=== PATIENT | female | born 1965 | race Caucasian/White ===

== ENCOUNTER → 2017-06-06 13:23 | Outpatient (CLI) | payer MEDICAID, SELFPAY ==
--- NOTE | 2017-06-11 09:04 | LEAS_ITS ---
Arterial Study - Arterial Study Arterial Study: This is a 51-year-old female with a history of hypertension, chronic obstructive pulmonary disease, deep vein thrombosis, pulmonary embolism, obstructive sleep apnea, rheumatoid arthritis, obesity, and tobacco abuse. The patient presents with lower extremity pain, and symptoms and manifestations suggesting the presence of arterial occlusive disease. She is brought to the noninvasive vascular laboratory at this time for the purpose of bilateral noninvasive lower extremity arterial assessment. Doppler signal assessment was used to evaluate the pulses at ankle level bilaterally. The posterior tibial and dorsalis pedis pulses were triphasic bilaterally. Segmental limb pressures were obtained at ankle level bilaterally. The right ankle pressure, as determined by posterior tibial pulse, was measured at 156 mmHg. The right ankle pressure, as determined by dorsalis pedis pulse, was measured at 154 mmHg. The left ankle pressure, as determined by posterior tibial pulse, was measured at 153 mmHg. The left ankle pressure, as determined by dorsalis pedis pulse, was measured at 159 mmHg. Pulse-volume recordings were obtained at ankle level bilaterally. Waveform amplitudes appeared to be satisfactory bilaterally. Resting ankle-brachial indices were calculated bilaterally. The resting right ankle-brachial index was calculated to be 1.01. The resting left ankle- brachial index was calculated to be 1.03. Impression: Based upon the findings of this resting noninvasive lower extremity arterial study, there is no evidence of significant atherosclerotic peripheral arterial occlusive disease in the lower extremities bilaterally. Triphasic waveforms were noted at ankle level bilaterally. Resting ankle-brachial indices were bilaterally normal. In summary, this represents a normal resting noninvasive lower extremity arterial study bilaterally.
== END ==
PROVIDERS: Family Provider Family Medicine; PCP Family Medicine; Visit Provider Nurse Practitioner Acute Care
DX: R60.0 Localized edema (principal)
CPT/HCPCS: 93922

== ENCOUNTER → 2017-09-22 17:58 | Outpatient (CLI) | payer MEDICAID, SELFPAY ==
[2017-09-22 19:16] LABS: M R Staph aureus DNA By PCR Negative (Negative); Probe Check PASS; Specimen Processing Control PASS; Staph aureus DNA By PCR NEGATIVE (Negative)
== END ==
PROVIDERS: Visit Provider Podiatrist
DX: L97.919 Non-pressure chronic ulcer of unspecified part of right lower leg with unspecified severity (principal); L03.115 Cellulitis of right lower limb
CPT/HCPCS: 87070; 87205; 87640

== ENCOUNTER → 2017-09-27 18:22 | Outpatient (CLI) | payer MEDICAID, SELFPAY | PROVIDERS: Visit Provider Podiatrist | DX: L97.919 Non-pressure chronic ulcer of unspecified part of right lower leg with unspecified severity (principal) | CPT/HCPCS: 87070; 87075; 87186; 87205 ==

== ENCOUNTER 2017-12-12 18:16 | Inpatient (IN) | payer MEDICAID, SELFPAY ==
[2017-12-12 18:17] VITALS: BP 159/96; PULSE 86; RESP 22; TEMP 36.6; O2SAT 88; BMI 48.0
--- NOTE | 2017-12-12 19:54 | EKG12_ITS ---
Test Reason : Blood Pressure : / mmHG Vent. Rate : 082 BPM Atrial Rate : 082 BPM P-R Int : 150 ms QRS Dur : 080 ms QT Int : 374 ms P-R-T Axes : -11 050 081 degrees QTc Int : 436 ms Normal sinus rhythm Low voltage QRS Borderline ECG Confirmed by RAMSEY DEAN, JENNIFER ([id number]), deputy editor in chief FIFI URRUTIA ([id number] on 12/14/2017 1:49:35 PM Referred By: Trevor Claire Confirmed By:JENNIFER MUSTAFA MD
[2017-12-12 20:11] VITALS: PULSE 83; RESP 20; O2SAT 94
[2017-12-12 20:19] VITALS: PULSE 84; RESP 20
[2017-12-12 20:19] LABS: Red Blood Cells-Urine 0 SEEN /hpf (0-5)
[2017-12-12] MEDS: Ipratropium/Albuterol Sulfate 3 ML AMPUL.NEB INHALATION (20:19)
[2017-12-12 20:20] LABS: Color, Urine Yellow (Yellow); Glucose, Dipstick Normal (Normal); Ketone-Dipstick Negative (Negative); Leukocyte Esterase-Dipstick 500 /ul (Negative); Nitrite-Dipstick Negative (Negative); Occult Blood-Urine 10 /ul (Negative); Protein-Dipstick 15 mg/dl (Negative); Urine Bilirubin Dipstick Negative (Negative); Urine Clarity Clear (Clear); Urine Urobilinogen 1 mg/dl (Normal)
[2017-12-12] MEDS: 0.9% Normal Saline 1,000 ML 999 ML IV (20:30)
[2017-12-12] MEDS: Ondansetron 4 MG/2 ML Vial IV (20:30)
[2017-12-12] MEDS: MethylPREDNISolone 125 MG/2 ML Vial IV (20:30)
[2017-12-12] MEDS: Morphine 4 MG/ML Syringe IV (20:30)
--- NOTE | 2017-12-12 20:40 | RAD_ITS ---
STUDY: X-RAY CHEST REASON FOR EXAM: Female, 52 years old. Shortness of breath TECHNIQUE: Frontal and lateral views COMPARISON: December 31, 2015 FINDINGS: The lungs are expanded. Possible right middle lobe infiltrate. Cardiomegaly. Normal mediastinum and mony. Normal visualized pulmonary arteries. Normal visualized aortic arch and descending thoracic aorta. Degenerative changes of the visualized thoracic spine. Normal visualized ribs, clavicles, and shoulders. There is no demonstrated abnormality of the visualized soft tissue structures of the upper abdomen. RAD/Chest PA and Lateral IMPRESSION: Possible mild right middle lobe infiltrate. Slight cardiomegaly. Electronically Signed: Tang Loo DO at 21:35 EDT Tel [phone], Service support ,
[2017-12-12 20:42] LABS: Squamous Epithelial Cells - UA 0-5 SEEN /hpf (5-10)
[2017-12-12 20:43] LABS: Hyaline Cast 0-5 SEEN /lpf (0-5)
[2017-12-12 20:46] VITALS: O2SAT 94
[2017-12-12 20:46] LABS: Bacteria 1+ /hpf (None Seen)
[2017-12-12 20:47] LABS: Mucous, Urine RARE /hpf (<or=2+)
[2017-12-12 20:49] LABS: White Blood Cells 10-25 SEEN /hpf (0-5)
[2017-12-12 20:55] LABS: Absolute Lymphocyte Count 4.46 X10^3/ul (0.83-4.51); Absolute Neutrophil Count 7.8 X10^3/uL (2.0-7.7); Basophil# 0.02 X10^3/uL; Basophil% 0.1 % (0-1); Eosinophil# 0.21 X10^3/uL; Eosinophils% 1.6 % (0-5); Hematocrit 44.4 % (37-47); Hemoglobin 14.2 g/dl (12.0-15.0); Lymphocyte # 4.46 X10^3/ul (4.0); Lymphocyte % 33.2 % (19-41); Mean Corpuscular Hgb 27.9 pg (27.0-32.0); Mean Corpuscular Volume 87.2 fL (81-99); Mean Platelet Vol. 9.8 fl (6.2-12.0); Monocyte# 0.96 X10^3/uL; Monocyte% 7.1 % (0-10); Neutrophil # 7.76 X10^3/uL (2.7-7.7); Neutrophil % 57.9 % (47-70); Platelet Count 325 K/mm3 (150-450); RBC Distribution Width CV 14.1 % (11.6-14.6); RBC Distribution Width SD 44.7 fl (35.1-43.9); Red Blood Count 5.09 M/mm3 (4.2-5.4); White Blood Count 13.4 K/mm3 (4.4-11.0)
[2017-12-12 20:56] LABS: POSITIVE COUNT NO; POSITIVE DIFFERENTIAL NO; POSITIVE MORPHOLOGY NO
[2017-12-12 21:00] VITALS: PULSE 79; RESP 16; O2SAT 94
[2017-12-12 21:05] LABS: Anion Gap 10 (5-15); BUN 13 mg/dL (7-18); BUN/Creat Ratio 17.5 RATIO (10-20); Calcium,Total 9.4 mg/dL (8.5-10.1); Chloride 98 mmol/L (98-107); Creatinine, Serum 0.74 mg/dL (0.55-1.02); EST Glomerular Filtration Rate 88 mL/min (>60); Est Glom Filt Rate - Afr Amer 106 mL/min (>60); Estimated Creatinine Clearance 71.13 ml/min; Glucose 121 mg/dL (74-106); Potassium 3.6 mmol/L (3.5-5.1); Sodium Level 141 mmol/L (136-145)
--- NOTE | 2017-12-12 21:18 | ED.DCSUM_ITS ---
- ER Visit Summary Date of Service: 12/12/17 Chief Complaint: Cough and shortness of breath History of Present Illness: The patient is a [address] Lawler and Dr. Mensah. She reports that she has a cough began 2 weeks ago. Is productive of yellow/green mucus without blood. She reports that she had had a fever and chills. However, this resolved when she took Levaquin. She finished that 2 days ago. She is currently on a steroid taper. Patient reports that she has chest pain with coughing only. She has mild shortness of breath at rest and severe shortness of breath with ambulation. She denies any abdominal pain. However, she has been nauseated. No vomiting or diarrhea. No melena hematochezia. She reports that she does have dysuria and frequency. Physical Examination: Vitals: 97.8, 159/96, 86, 22, 88% on room air which is hypoxic. General: Well-nourished and well-developed. Head: Normocephalic atraumatic. Neck: Supple, no lymphadenopathy. No JVD. Nontender. Cardiovascular: Regular rate and rhythm. No murmurs. Respiratory: No respiratory distress. Moderate wheezing bilaterally with decreased air movement. Abdominal: Soft, nontender, nondistended, normal bowel sounds. No guarding, rebound, or peritoneal signs. Back: Nontender. Extremities: Nontender, no edema. Skin: Normal color, no rash. Neurologic: Alert and oriented ?3. Cranial nerves II through XII are intact. Normal strength and sensation. Psych: Normal affect. Test Results: EKG is sinus at [address] changes. Is essentially unchanged from February 2017. Chem-7 is remarkable for a CO2 of 33 and glucose 121. CBC is remarkable for a white count of 13.4. UA shows blood, 10-25 white blood cells, 1+ bacteria. Lactic acid is 1.6. Chest x-ray shows a possible right middle lobe pneumonia. Emergency Department Course and Treatment: Patient was treated albuterol Atrovent aerosols. She is given Solu-Medrol and morphine IV. She is resting comfortably. She was given Rocephin and Zithromax IV. She had been on Levaquin until 2 days ago. Treatment Plan: Patient will be discussed Dr. Trevor Henderson and admitted for further evaluation and treatment. Disposition: Admitted in improved condition Impression: 1. Pneumonia, community-acquired. 2. COPD. 3. Hypoxia. 4. UTI. This note was generated with [employer] dictation software. It may contain incorrect words, spelling, and punctuation that were not noted in review of the chart prior to signing ED Disposition - Plan for ED Patient: Chief Complaint: Shortness of Breath Referrals: Camilo Sloan DO [Primary Care Provider] -
[2017-12-12 21:42] LABS: Lactic Acid 1.6 mmol/L (0.4-2.0)
[2017-12-12] MEDS: Ceftriaxone 1 GM/50 ML BAG IV (22:23)
[2017-12-12 22:58] VITALS: BMI 48.2
[2017-12-12 23:01] VITALS: BP 152/83; PULSE 82; RESP 24; TEMP 36.8; O2SAT 95
--- NOTE | 2017-12-12 23:10 | PCM.HP.STD ---
Problem List (1) CAP (community acquired pneumonia) Status: Acute Qualifiers: Laterality: right Lung location: middle lobe of lung Qualified Code(s): J18.1 - Lobar pneumonia, unspecified organism (2) UTI (urinary tract infection) Status: Acute Qualifiers: Urinary tract infection type: acute cystitis (3) Fibromyalgia Status: Chronic (4) Morbid (severe) obesity due to excess calories Status: Chronic (5) Nicotine dependence, uncomplicated Status: Chronic (6) Patient's noncompliance with other medical treatment and regimen Status: Chronic (7) Obstructive sleep apnea Status: Chronic (8) Anxiety disorder Status: Chronic (9) History of DVT of lower extremity Status: Chronic (10) History of pulmonary embolus (PE) Status: Chronic (11) Rheumatoid arthritis Status: Chronic (12) Chronic back pain Status: Chronic History of Present Illness Date of Admission: 12/12/17 Chief Complaint: shortness of breath The patient is a 52 year old female with COPD, tobacco use disorder who presents to the ER with chief complaint of shortness of breath. She has been undergoing treatment for the past two weeks for respiratory distress. Her last dose of Levaquin was Tuesday. Despite home oxygen therapy she arrived with a pulse oxygenation of 86%. She improved to low 90% with treatment in the ED. She has a right middle lobar pneumonia on chest X-ray. Urine is also positive for bacterial infection. She also complains of chronic pain and is requesting pain medication. She will be admitted for management of pneumonia. Past Medical History Past Medical History (Chronic Problems): Chronic Problems (Last Reviewed 11/01/17 @ 10:53 by Audelia Glover) Fibromyalgia (Chronic) Morbid (severe) obesity due to excess calories (Chronic) Nicotine dependence, uncomplicated (Chronic) Patient's noncompliance with other medical treatment and regimen (Chronic) Obstructive sleep apnea (Chronic) Chronic sinusitis (Chronic) Bronchitis (Chronic) HTN (hypertension) (Chronic) Osteoarthritis of right hip (Chronic) Costal chondritis (Chronic) Chronic hypoxemic respiratory failure (Chronic) Anxiety disorder (Chronic) History of DVT of lower extremity (Chronic) History of pulmonary embolus (PE) (Chronic) Tobacco dependence syndrome (Chronic) Rheumatoid arthritis (Chronic) Chronic back pain (Chronic) COPD, frequent exacerbations (Chronic) Medical History: Medical History (Last Reviewed 11/01/17 @ 10:53 by Audelia Glover) Fibromyalgia (Chronic) Morbid (severe) obesity due to excess calories (Chronic) E66.01 Nicotine dependence, uncomplicated (Chronic) F17.200 Patient's noncompliance with other medical treatment and regimen (Chronic) Z91.19 Obstructive sleep apnea (Chronic) G47.33 Chronic sinusitis (Chronic) J32.9 Otitis media (Resolved) H66.90 Bronchitis (Chronic) J40 HTN (hypertension) (Chronic) I10 Osteoarthritis of right hip (Chronic) M16.11 Costal chondritis (Chronic) M94.0 Itching (Resolved) L29.9 Chronic hypoxemic respiratory failure (Chronic) J96.11 Anxiety disorder (Chronic) F41.9 History of DVT of lower extremity (Chronic) Z86.718 History of pulmonary embolus (PE) (Chronic) Z86.711 Tobacco dependence syndrome (Chronic) F17.200 Rheumatoid arthritis (Chronic) M06.9 Chronic back pain (Chronic) M54.9, G89.29 COPD, frequent exacerbations (Chronic) J44.9 COPD exacerbation (Acute) J44.1 Healthcare-associated pneumonia (Acute) J18.9 Shortness of breath (Acute) R06.02 Tubal O00.109 Allergies enoxaparin sodium [From Lovenox] Allergy (Verified 12/12/17 21:14) Itching heparin Allergy (Verified 12/12/17 21:14) Itching varenicline [From Chantix] Adverse Reaction (Intermediate, Unverified 12/12/17 21:14) MENTAL ISSUES MADE ME GO CRAZY, P[facility] ME IN THE [facility] Home Medications: Ambulatory Orders Medication Instructions Recorded Alprazolam 0.5 mg PO BID PRN PRN 12/15/13 Atenolol 100 mg PO DAILY 12/15/13 Omeprazole [Prilosec] 40 mg PO DAILY 12/15/13 Ferrous Sulfate 325 mg PO DAILY 03/17/14 Pravastatin [Pravachol] 40 mg PO QHS 03/17/14 Glimepiride [Amaryl] 4 mg PO DAILY 04/23/15 Furosemide [Lasix] 20 mg PO DAILY 06/30/16 bupropion HCl SR 200 mg tablet,12 400 mg PO DAILY tab 03/10/17 hr sustained-release docusate sodium 100 mg capsule 200 mg PO BID cap 03/10/17 metformin 500 mg tablet 1,000 mg PO BID tab 03/10/17 pregabalin 300 mg capsule 300 mg PO BID 03/10/17 rivaroxaban 20 mg tablet 20 mg PO DAILY tab 03/10/17 venlafaxine ER 75 mg 300 mg PO QHS cap 03/10/17 capsule,extended release 24 hr albuterol sulfate 2.5 mg/3 mL 2.5 mg INHALATION Q2H PRN PRN #100 04/20/17 (0.083 %) solution for nebulization vial.neb. albuterol sulfate HFA 90 2 puff INHALATION Q6H PRN PRN #18 g 11/01/17 mcg/actuation aerosol inhaler fluticasone 200 mcg-vilanterol 25 1 ea INHALATION QDAY #60 ea 11/01/17 mcg/dose powder for inhalation umeclidinium 62.5 mcg/actuation 62.5 mcg INHALATION DAILY #30 ea 11/01/17 blister powder for inhalation Quetiapine Fumarate [Seroquel] 100 mg PO QHS 12/12/17 Surgical History: - Smoking Status: Current every day smoker - *Family History Maternal History Items: Diabetes Paternal History Items: Unknown - Patient was adopted and does not know who her biological father is Review of Systems Constitutional: Reports: Fever, Weakness. Denies: Chills, Weight Change HEENT: Denies: Head Aches, Sinus Congestion, Sinus Drainage Cardiovascular: Denies: Chest Pain, Palpitations Respiratory: Reports: Shortness of breath at rest, Sputum production, Wheezing. Denies: Cough Gastrointestinal: Denies: Abdominal Pain, Nausea, Vomiting Genitourinary: Denies: Dysuria Musculoskeletal: Reports: Back Pain, Joint Pain. Denies: Joint Tenderness Skin: Denies: Rash, Wounds Neurological: Denies: Numbness, Tingling, Focal weakness Psychiatric: Reports: Anxiety. Denies: Depression, Homicidal Ideations, Suicidal Ideations Hematologic/ Lymphatic: Denies: Easy Bruising, Easy Bleeding VTE Information - Inpt Only VTE Present on Admission: No VTE Mechan Device Prophylaxis: None VTE Pharm Prophylaxis ordered?: Yes Patient Problems: Active and Suspected Problems (Last Reviewed 11/01/17 @ 10:53 by Audelia Glover) CAP (community acquired pneumonia) (Acute) UTI (urinary tract infection) (Acute) - Physical Exam General: Alert, Oriented x3, Cooperative HEENT: Atraumatic, Normocephalic Neck: Supple Lungs: Diminished, Wheezes Cardiovascular: Regular rate, Normal S1, Normal S2, No murmurs Abdomen: Bowel Sounds Present, Soft, Non Tender, Obese Extremities: Edema Skin: No rashes Musculoskeletal: No Tenderness to Palpation of Joints or Extremities Neurological: Neuro grossly intact Psych/Mental Status: Normal Affect, Appropriate Vital Signs Temp Pulse Resp BP Pulse Ox 98.3 F 82 24 H 152/83 H 95 12/12/17 23:01 12/12/17 23:01 12/12/17 23:01 12/12/17 23:01 12/12/17 23:01 Oxygen Flow Rate (L/min) 2 Oxygen Delivery Method Nasal Cannula Weight: 264 lb Body Mass Index (BMI) 48.2 Assessment/Plan All Active Problems (Last Reviewed 11/01/17 @ 10:53 by Audelia Glover) CAP (community acquired pneumonia) (Acute) UTI (urinary tract infection) (Acute) Livedo reticularis (Acute) Otitis media (Resolved) Itching (Resolved) COPD exacerbation (Acute) Healthcare-associated pneumonia (Acute) Shortness of breath (Acute) Assessment - community acquired pneumonia - UTI Chronic Problems (Last Reviewed 11/01/17 @ 10:53 by Audelia Glover) Fibromyalgia (Chronic) Morbid (severe) obesity due to excess calories (Chronic) Nicotine dependence, uncomplicated (Chronic) Patient's noncompliance with other medical treatment and regimen (Chronic) Obstructive sleep apnea (Chronic) Chronic sinusitis (Chronic) Bronchitis (Chronic) HTN (hypertension) (Chronic) Osteoarthritis of right hip (Chronic) Costal chondritis (Chronic) Chronic hypoxemic respiratory failure (Chronic) Anxiety disorder (Chronic) History of DVT of lower extremity (Chronic) History of pulmonary embolus (PE) (Chronic) Tobacco dependence syndrome (Chronic) Rheumatoid arthritis (Chronic) Chronic back pain (Chronic) COPD, frequent exacerbations (Chronic) Plan - admit to medical surgical floor. - DuoNeb INH q 4hrs prn, solumedrol 40mg IV q 8hrs - continue Rocephin and Azithromycin - CBC, BMP in am - continue routine home medications - she refused nicoderm patch - smoking cessation strongly encouraged - LMWH for DVT prophylaxis Code Visit Inpatient E&M: 70192 Init Hosp L3
[2017-12-12 23:26] VITALS: BMI 48.3
[2017-12-13] VITALS (12 sets, daily range): BP systolic 118–147; BP diastolic 50–77; PULSE 61–74; RESP 18–24; TEMP 36.2–37.1; O2SAT 92–98
[2017-12-13] MEDS: ALPRAZolam 0.5 MG Tablet PO ×2 (00:22→13:43)
[2017-12-13] MEDS: Pregabalin 75 MG Capsule 300 MG PO ×3 (00:22→21:11)
[2017-12-13] MEDS: Acetaminophen 325 MG Tablet 650 MG PO ×3 (00:22→17:29)
--- NOTE | 2017-12-13 02:51 | CPS ---
pt on own cpap unit
[2017-12-13] MEDS: 0.9% NaCl Peripheral Flush Adult/Peds IV ×3 (06:08→13:28)
--- NOTE | 2017-12-13 07:30 | PCM.PN.HOSP ---
Patient Problems: Active and Suspected Problems (Last Reviewed 11/01/17 @ 10:53 by Audelia Glover) CAP (community acquired pneumonia) (Acute) UTI (urinary tract infection) (Acute) Subjective: Patient is a 52-year-old lady with multiple comorbidities who presented with shortness of breath associated with productive cough, chest x-ray obtained and admission demonstrated Possible mild right middle lobe infiltrate. Slight cardiomegaly. Antibiotics initiated per protocol admitted to regular nursing floor for further management Objective: GENERAL: Appears ill looking HEENT: Clear conjunctiva, moist oral mucosa NECK; supple, normal thyroid, no distended JVD. CHEST: Diminished to auscultation with bilateral basilar rhonchi HEART: Regular S1 S2, no audible murmurs ABDOMEN: soft, non-tender, normoactive bowel sounds, RECTAL: deferred EXTREMITIES: No edema, no clubbing, no cyanosis. 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 SKIN: No Rash Vitals/I&O's: Vital Signs Temp Pulse Resp BP Pulse Ox 97.2 F L 64 20 H 119/77 96 12/13/17 06:04 12/13/17 06:04 12/13/17 06:04 12/13/17 06:04 12/13/17 06:04 Oxygen Flow Rate (L/min) 2 Oxygen Delivery Method Nasal Cannula Weight: 119.748 kg Body Mass Index (BMI) 48.2 Intake and Output for Last 24 Hours 12/11/17 12/12/17 12/13/17 23:59 23:59 23:59 Intake Total 683 / 683 Balance 683 / 683 Current Medications Acetaminophen (Tylenol) 650 mg PO Q6H PRN PRN PRN Reason: Mild Pain (scale 0-3)/T>100.7 Last Admin: 12/13/17 06:08 Dose: 650 mg Albuterol/Ipratropium (Duoneb) 3 ml INHALATION Q4H.RT [facility] Last Admin: 12/13/17 02:50 Dose: Not Given Alprazolam (Xanax) 0.5 mg PO BID PRN PRN PRN Reason: ANXIETY Last Admin: 12/13/17 00:22 Dose: 0.5 mg Atenolol (Tenormin (Beta Karina)) 100 mg PO DAILY [facility] Docusate Sodium (Colace) 200 mg PO BID [facility] Furosemide (Lasix) 20 mg PO DAILY [facility]pir[facility] ([facility]l) [facility] Azithromycin 500 mg/ Dextrose 255 mls @ 250 mls/hr IV Q24 [facility] Stop: 12/15/17 11:02 Ceftriaxone Sodium (Rocephin) 1 gm in 50 mls @ 100 mls/hr IV Q24 [facility] Magnesium Hydroxide (Milk Of Magnesia) 30 ml PO DAILY PRN PRN PRN Reason: Constipation Metformin [facility] ([facility]uc[facility]) [facility] Methylprednisolone (Solu-Medrol) 40 mg IV Q8 [facility] Last Admin: 12/13/17 06:08 Dose: 40 mg Non-Formulary Medication (Bupropion Hcl [Bupropion Hcl Sr]) 400 mg PO DAILY [facility] Pantoprazole Sodium (Protonix) 40 mg PO DAILY [facility] Pravastatin Sodium (Pravachol) 40 mg PO QHS [facility] Pregabalin (Lyrica) 300 mg PO BID [facility] Last Admin: 12/13/17 00:22 Dose: 300 mg Quetiapine Fumarate (Seroquel) 100 mg PO QHS [facility] Rivaroxaban (Xarelto) 20 mg PO DAILY@1700 [facility] Sodium Chloride () 5 - 30 ml IV UD PRN PRN Reason: SALINE FLUSH Last Admin: 12/13/17 06:08 Dose: 10 ml Trazodone HCl (Desyrel) 50 mg PO QHS [facility] Venlafaxine HCl (Effexor Xr) 300 mg PO QHS [facility] Medical Necessity - Tobacco Use Smoking Status: Current every day smoker Assessment/Plan All Active Problems (Last Reviewed 11/01/17 @ 10:53 by Audelia Glover) CAP (community acquired pneumonia) (Acute) UTI (urinary tract infection) (Acute) Livedo reticularis (Acute) Otitis media (Resolved) Itching (Resolved) COPD exacerbation (Acute) Healthcare-associated pneumonia (Acute) Shortness of breath (Acute) Patient is a 52-year-old lady with multiple comorbidities who presented with shortness of breath associated with productive cough, chest x-ray obtained and admission demonstrated Possible mild right middle lobe infiltrate. Slight cardiomegaly. Antibiotics initiated per protocol admitted to regular nursing floor for further management 1. Community-acquired pneumonia with suspected streptococcal pneumonia: Patient admitted to regular nursing floor managed with antibiotics per protocol (azithromycin as well as Rocephin) after cultures have been obtained. Patient also placed on supplemental oxygen titrated to keep pulse ox greater than 90 2. COPD exacerbation precipitated by above 3. History of multiple pulmonary embolism as DVTs patient is on Xarelto 4. Morbid obesity with a BMI of 48.3 advised on weight reduction 5. Hypertension: Continue with home medications with plans to adjust doses as needed 6. GERD: Continued PPI 7. Depression: Continued SSRI. 8. Obstructive sleep apnea uses CPAP at night 9. Diabetes mellitus type II: Controlled patient's oral hypoglycemics held. Placed on long acting insulin, Accu-Cheks a.c. and at bedtime and covered with sliding scale insulin 10. Tobacco dependence counseled on cessation, offered nicotine patch for tobacco cravings 11. DVT prophylaxis on Xarelto Active Medications Acetaminophen (Tylenol) 650 mg PO Q6H PRN PRN PRN Reason: Mild Pain (scale 0-3)/T>100.7 Last Admin: 12/13/17 06:08 Dose: 650 mg Albuterol/Ipratropium (Duoneb) 3 ml INHALATION Q4H.RT [facility] Last Admin: 12/13/17 07:35 Dose: 3 ml Alprazolam (Xanax) 0.5 mg PO BID PRN PRN PRN Reason: ANXIETY Last Admin: 12/13/17 00:22 Dose: 0.5 mg Atenolol (Tenormin (Beta Karina)) 100 mg PO DAILY [facility] Docusate Sodium (Colace) 200 mg PO BID [facility] Ferrous Sulfate (Ferrous Sulfate) 325 mg PO DAILYCM [facility] Furosemide (Lasix) 20 mg PO DAILY [facility] Glimepiride (Amaryl) 4 mg PO DAILYCM [facility] Azithromycin 500 mg/ Dextrose 255 mls @ 250 mls/hr IV Q24 [facility] Stop: 12/15/17 11:02 Ceftriaxone Sodium (Rocephin) 1 gm in 50 mls @ 100 mls/hr IV Q24 [facility] Magnesium Hydroxide (Milk Of Magnesia) 30 ml PO DAILY PRN PRN PRN Reason: Constipation Metformin HCl (Glucophage) 1,000 mg PO BIDCM [facility] Methylprednisolone (Solu-Medrol) 40 mg IV Q8 [facility] Last Admin: 12/13/17 06:08 Dose: 40 mg Non-Formulary Medication (Bupropion Hcl [Bupropion Hcl Sr]) 400 mg PO DAILY [facility] Pantoprazole Sodium (Protonix) 40 mg PO DAILY [facility] Pravastatin Sodium (Pravachol) 40 mg PO QHS [facility] Pregabalin (Lyrica) 300 mg PO BID [facility] Last Admin: 12/13/17 00:22 Dose: 300 mg Quetiapine Fumarate (Seroquel) 100 mg PO QHS [facility] Rivaroxaban (Xarelto) 20 mg PO DAILY@1700 [facility] Sodium Chloride () 5 - 30 ml IV UD PRN PRN Reason: SALINE FLUSH Last Admin: 12/13/17 06:08 Dose: 10 ml Trazodone HCl (Desyrel) 50 mg PO QHS [facility] Venlafaxine HCl (Effexor Xr) 300 mg PO QHS [facility] Clinical Impression(s) from Imaging Studies Chest X-Ray 12/12/17 20:40 IMPRESSION: Possible mild right middle lobe infiltrate. Slight cardiomegaly. Electronically Signed: Tang Loo DO at 21:35 EDT Tel [phone], Service support , Code Visit Inpatient E&M: 63666 Subs Hosp L3
[2017-12-13] MEDS: Ipratropium/Albuterol Sulfate 3 ML AMPUL.NEB INHALATION ×4 (07:35→22:18)
[2017-12-13] MEDS: Ferrous Sulfate 325 MG Tablet PO (08:19)
[2017-12-13 08:20] LABS: Bedside Glucose 164 mg/dL (70-110)
[2017-12-13] MEDS: Ceftriaxone 1 GM/50 ML BAG IV (09:36)
[2017-12-13] MEDS: Pantoprazole Sodium 40 MG Tablet PO (09:38)
[2017-12-13] MEDS: Atenolol 100 MG Tablet PO (09:38)
[2017-12-13] MEDS: Furosemide 20 MG Tablet PO (09:39)
[2017-12-13] MEDS: Docusate Sodium 100 MG Capsule 200 MG PO ×2 (09:39→21:11)
[2017-12-13] MEDS: Insulin Lispro 100 UNIT/ML INSULN.PEN SQ ×3 (11:31→21:10)
[2017-12-13 11:40] LABS: Bedside Glucose 277 mg/dL (70-110)
[2017-12-13] MEDS: buPROPion (SR) 100 MG TABLET.SA 200 MG PO ×2 (14:37→21:11)
[2017-12-13 16:40] LABS: Bedside Glucose 172 mg/dL (70-110)
[2017-12-13] MEDS: Rivaroxaban 20 MG Tablet PO (17:30)
[2017-12-13] MEDS: QUEtiapine 100 MG Tablet PO (21:11)
[2017-12-13] MEDS: traZODone 50 MG Tablet PO (21:11)
[2017-12-13] MEDS: Venlafaxine XR 150 MG Capsule 300 MG PO (21:11)
[2017-12-13] MEDS: guaiFENesin 1,200 MG Tablet 1200 MG PO (21:11)
[2017-12-13] MEDS: Pravastatin 40 MG Tablet PO (21:11)
[2017-12-13 23:15] LABS: Bedside Glucose 228 mg/dL (70-110)
[2017-12-14] VITALS (13 sets, daily range): BP systolic 150–192; BP diastolic 72–102; PULSE 60–77; RESP 18–22; TEMP 36.7–37; O2SAT 95–99
[2017-12-14] MEDS: Acetaminophen 325 MG Tablet 650 MG PO ×3 (02:26→19:51)
[2017-12-14] MEDS: Ipratropium/Albuterol Sulfate 3 ML AMPUL.NEB INHALATION ×6 (04:05→22:11)
[2017-12-14 05:24] LABS: Hematocrit 41.4 % (37-47); Hemoglobin 13.6 g/dl (12.0-15.0); Mean Corp Hgb Conc 32.9 g/gl (32-36); Mean Corpuscular Hgb 28.4 pg (27.0-32.0); Mean Corpuscular Volume 86.4 fL (81-99); Mean Platelet Vol. 9.7 fl (6.2-12.0); Platelet Count 298 K/mm3 (150-450); RBC Distribution Width CV 13.9 % (11.6-14.6); RBC Distribution Width SD 43.5 fl (35.1-43.9); Red Blood Count 4.79 M/mm3 (4.2-5.4); White Blood Count 9.5 K/mm3 (4.4-11.0)
[2017-12-14 05:34] LABS: Scan Indicated on CBC? Y/N NO
[2017-12-14 05:41] LABS: Anion Gap 8 (5-15); BUN 15 mg/dL (7-18); BUN/Creat Ratio 19.8 RATIO (10-20); Calcium,Total 9.2 mg/dL (8.5-10.1); Chloride 101 mmol/L (98-107); Creatinine, Serum 0.76 mg/dL (0.55-1.02); EST Glomerular Filtration Rate 86 mL/min (>60); Est Glom Filt Rate - Afr Amer 104 mL/min (>60); Estimated Creatinine Clearance 69.26 ml/min; Glucose 268 mg/dL (74-106); Magnesium 2.1 mg/dL (1.6-2.6); Potassium 4.2 mmol/L (3.5-5.1); Sodium Level 141 mmol/L (136-145)
[2017-12-14 07:37] LABS: Bedside Glucose 204 mg/dL (70-110)
[2017-12-14] MEDS: Insulin Lispro 100 UNIT/ML INSULN.PEN SQ ×4 (07:38→21:48)
[2017-12-14] MEDS: Ferrous Sulfate 325 MG Tablet PO (07:40)
--- NOTE | 2017-12-14 07:47 | PCM.PN.HOSP ---
Patient Problems: Active and Suspected Problems (Last Reviewed 11/01/17 @ 10:53 by Audelia Glover) CAP (community acquired pneumonia) (Acute) UTI (urinary tract infection) (Acute) Subjective: Patient seen still complains of weakness and productive cough. Nasal swab came back positive for rhinovirus patient placed in isolation precautions Objective: GENERAL: Appears ill looking HEENT: Clear conjunctiva, moist oral mucosa NECK; supple, normal thyroid, no distended JVD. CHEST: Diminished to auscultation with bilateral basilar rhonchi HEART: Regular S1 S2, no audible murmurs ABDOMEN: soft, non-tender, normoactive bowel sounds, RECTAL: deferred EXTREMITIES: No edema, no clubbing, no cyanosis. 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 SKIN: No Rash Vitals/I&O's: Vital Signs Temp Pulse Resp BP Pulse Ox 98.1 F 66 18 158/80 H 96 12/14/17 02:15 12/14/17 07:01 12/14/17 07:01 12/14/17 02:15 12/14/17 07:01 Oxygen Flow Rate (L/min) 2 Oxygen Delivery Method Nasal Cannula Weight: 119.7 kg Body Mass Index (BMI) 48.2 Intake and Output for Last 24 Hours 12/12/17 12/13/17 12/14/17 23:59 23:59 23:59 Intake Total 3083 / 3083 480 / 480 Balance 3083 / 3083 480 / 480 Microbiology Past 72 Hours 12/13/17 11:55 Mucosa - Nasopharyngeal Respiratory Panel (PCR) - Final Rhinovirus Laboratory Results 12/13/17 08:07: POC Glucose 164 H 12/13/17 11:18: POC Glucose 277 H 12/13/17 16:34: POC Glucose 172 H 12/13/17 21:07: POC Glucose 228 H 12/14/17 05:10: WBC 9.5, RBC 4.79, Hgb 13.6, Hct 41.4, MCV 86.4, MCH 28.4, MCHC 32.9, RDW 13.9, RDW Differential 43.5, Plt Count 298, MPV 9.7 12/14/17 05:10: Sodium 141, Potassium 4.2, Chloride 101, Carbon Dioxide 32.0, Anion Gap 8, BUN 15, Creatinine 0.76, Estim Creat Clear Calc 69.26, Est GFR (MDRD) Af Amer 104, Est GFR (MDRD) Non-Af 86, BUN/Creatinine Ratio 19.8, Glucose 268 H, Calcium 9.2, Magnesium 2.1 12/14/17 07:26: POC Glucose 204 H Current Medications Acetaminophen (Tylenol) 650 mg PO Q6H PRN PRN PRN Reason: Mild Pain (scale 0-3)/T>100.7 Last Admin: 12/14/17 02:26 Dose: 650 mg Albuterol/Ipratropium (Duoneb) 3 ml INHALATION Q4H.RT [facility] Last Admin: 12/14/17 07:01 Dose: 3 ml Alprazolam (Xanax) 0.5 mg PO BID PRN PRN PRN Reason: ANXIETY Last Admin: 12/13/17 13:43 Dose: 0.5 mg Atenolol (Tenormin (Beta Karina)) 100 mg PO DAILY [facility] Last Admin: 12/13/17 09:38 Dose: 100 mg Bupropion HCl (Wellbutrin Sr (100mg Tablets)) 200 mg PO BID [facility] Last Admin: 12/13/17 21:11 Dose: 200 mg Dextrose (D50w Syringe) 0 gm IV X1 PRN; Protocol PRN Reason: Hypoglycemia Docusate Sodium (Colace) 200 mg PO BID [facility] Last Admin: 12/13/17 21:11 Dose: 200 mg Ferrous Sulfate (Ferrous Sulfate) 325 mg PO DAILYCM [facility] Last Admin: 12/14/17 07:40 Dose: 325 mg Furosemide (Lasix) 20 mg PO DAILY [facility] Last Admin: 12/13/17 09:39 Dose: 20 mg Glucagon () 1 mg IM .X1 PRN PRN Reason: Hypoglycemia Guaifenesin (Mucinex) 1,200 mg PO BID [facility] Last Admin: 12/13/17 21:11 Dose: 1,200 mg Azithromycin 500 mg/ Dextrose 255 mls @ 250 mls/hr IV Q24 [facility] Stop: 12/15/17 11:02 Last Admin: 12/13/17 11:22 Dose: 250 mls/hr Ceftriaxone Sodium (Rocephin) 1 gm in 50 mls @ 100 mls/hr IV Q24 [facility] Last Admin: 12/13/17 09:36 Dose: 100 mls/hr Insulin Glargine (Lantus (Bkc)) 10 units SC BREAKFAST [facility] Last Admin: 12/14/17 07:36 Dose: 10 u Insulin Human Lispro (Humalog Kwikpen ([facility])) 0 unit SQ ACHS [facility] PRN Reason: Protocol Last Admin: 12/14/17 07:38 Dose: 4 u Magnesium Hydroxide (Milk Of Magnesia) 30 ml PO DAILY PRN PRN PRN Reason: Constipation Methylprednisolone (Solu-Medrol) 40 mg IV Q8 [facility] Last Admin: 12/14/17 06:24 Dose: 40 mg Pantoprazole Sodium (Protonix) 40 mg PO DAILY [facility] Last Admin: 12/13/17 09:38 Dose: 40 mg Pravastatin Sodium (Pravachol) 40 mg PO QHS [facility] Last Admin: 12/13/17 21:11 Dose: 40 mg Pregabalin (Lyrica) 300 mg PO BID [facility] Last Admin: 12/13/17 21:11 Dose: 300 mg Quetiapine Fumarate (Seroquel) 100 mg PO QHS [facility] Last Admin: 12/13/17 21:11 Dose: 100 mg Rivaroxaban (Xarelto) 20 mg PO DAILY@1700 [facility] Last Admin: 12/13/17 17:30 Dose: 20 mg Sodium Chloride () 5 - 30 ml IV UD PRN PRN Reason: SALINE FLUSH Last Admin: 12/13/17 13:28 Dose: 10 ml Trazodone HCl (Desyrel) 50 mg PO QHS [facility] Last Admin: 12/13/17 21:11 Dose: 50 mg Venlafaxine HCl (Effexor Xr) 300 mg PO QHS [facility] Last Admin: 12/13/17 21:11 Dose: 300 mg Medical Necessity - Tobacco Use Smoking Status: Current every day smoker Assessment/Plan All Active Problems (Last Reviewed 11/01/17 @ 10:53 by Audelia Glover) CAP (community acquired pneumonia) (Acute) UTI (urinary tract infection) (Acute) Livedo reticularis (Acute) Otitis media (Resolved) Itching (Resolved) COPD exacerbation (Acute) Healthcare-associated pneumonia (Acute) Shortness of breath (Acute) Patient is a 52-year-old lady with multiple comorbidities who presented with shortness of breath associated with productive cough, chest x-ray obtained and admission demonstrated Possible mild right middle lobe infiltrate. Slight cardiomegaly. Antibiotics initiated per protocol admitted to regular nursing floor for further management 1. Community-acquired pneumonia with suspected streptococcal pneumonia: Patient admitted to regular nursing floor managed with antibiotics per protocol (azithromycin as well as Rocephin) after cultures have been obtained. Patient also placed on supplemental oxygen titrated to keep pulse ox greater than 90 2. COPD exacerbation precipitated by above in addition to patient rhinovirus infection 3. History of multiple pulmonary embolism as DVTs patient is on Xarelto 4. Morbid obesity with a BMI of 48.3 advised on weight reduction 5. Hypertension: Continue with home medications with plans to adjust doses as needed 6. GERD: Continued PPI 7. Depression: Continued SSRI. 8. Obstructive sleep apnea uses CPAP at night 9. Diabetes mellitus type II: Controlled patient's oral hypoglycemics held. Placed on long acting insulin, Accu-Cheks a.c. and at bedtime and covered with sliding scale insulin 10. Tobacco dependence counseled on cessation, offered nicotine patch for tobacco cravings 11. DVT prophylaxis on Xarelto Active Medications Acetaminophen (Tylenol) 650 mg PO Q6H PRN PRN PRN Reason: Mild Pain (scale 0-3)/T>100.7 Last Admin: 12/13/17 06:08 Dose: 650 mg Albuterol/Ipratropium (Duoneb) 3 ml INHALATION Q4H.RT [facility] Last Admin: 12/13/17 07:35 Dose: 3 ml Alprazolam (Xanax) 0.5 mg PO BID PRN PRN PRN Reason: ANXIETY Last Admin: 12/13/17 00:22 Dose: 0.5 mg Atenolol (Tenormin (Beta Karina)) 100 mg PO DAILY [facility] Docusate Sodium (Colace) 200 mg PO BID [facility] Ferrous Sulfate (Ferrous Sulfate) 325 mg PO DAILYCM [facility] Furosemide (Lasix) 20 mg PO DAILY [facility] Glimepiride (Amaryl) 4 mg PO DAILYCM [facility] Azithromycin 500 mg/ Dextrose 255 mls @ 250 mls/hr IV Q24 [facility] Stop: 12/15/17 11:02 Ceftriaxone Sodium (Rocephin) 1 gm in 50 mls @ 100 mls/hr IV Q24 [facility] Magnesium Hydroxide (Milk Of Magnesia) 30 ml PO DAILY PRN PRN PRN Reason: Constipation Metformin HCl (Glucophage) 1,000 mg PO BIDCM [facility] Methylprednisolone (Solu-Medrol) 40 mg IV Q8 [facility] Last Admin: 12/13/17 06:08 Dose: 40 mg Non-Formulary Medication (Bupropion Hcl [Bupropion Hcl Sr]) 400 mg PO DAILY [facility] Pantoprazole Sodium (Protonix) 40 mg PO DAILY [facility] Pravastatin Sodium (Pravachol) 40 mg PO QHS [facility] Pregabalin (Lyrica) 300 mg PO BID [facility] Last Admin: 12/13/17 00:22 Dose: 300 mg Quetiapine Fumarate (Seroquel) 100 mg PO QHS [facility] Rivaroxaban (Xarelto) 20 mg PO DAILY@1700 [facility] Sodium Chloride () 5 - 30 ml IV UD PRN PRN Reason: SALINE FLUSH Last Admin: 12/13/17 06:08 Dose: 10 ml Trazodone HCl (Desyrel) 50 mg PO QHS [facility] Venlafaxine HCl (Effexor Xr) 300 mg PO QHS [facility] Clinical Impression(s) from Imaging Studies Chest X-Ray 12/12/17 20:40 IMPRESSION: Possible mild right middle lobe infiltrate. Slight cardiomegaly. Electronically Signed: Tang Loo DO at 21:35 EDT Tel [phone], Service support , Code Visit Inpatient E&M: 20459 Subs Hosp L2
--- NOTE | 2017-12-14 07:51 | PN_ITS ---
Patient Problems: Active and Suspected Problems (Last Reviewed 11/01/17 @ 10:53 by Audelia Glover) CAP (community acquired pneumonia) (Acute) UTI (urinary tract infection) (Acute) Subjective: Patient seen still complains of weakness and productive cough. Nasal swab came back positive for rhinovirus patient placed in isolation precautions Objective: GENERAL: Appears ill looking HEENT: Clear conjunctiva, moist oral mucosa NECK; supple, normal thyroid, no distended JVD. CHEST: Diminished to auscultation with bilateral basilar rhonchi HEART: Regular S1 S2, no audible murmurs ABDOMEN: soft, non-tender, normoactive bowel sounds, RECTAL: deferred EXTREMITIES: No edema, no clubbing, no cyanosis. 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 SKIN: No Rash Vitals/I&O's: Vital Signs Temp Pulse Resp BP Pulse Ox 98.1 F 66 18 158/80 H 96 12/14/17 02:15 12/14/17 07:01 12/14/17 07:01 12/14/17 02:15 12/14/17 07:01 Oxygen Flow Rate (L/min) 2 Oxygen Delivery Method Nasal Cannula Weight: 119.7 kg Body Mass Index (BMI) 48.2 Intake and Output for Last 24 Hours 12/12/17 12/13/17 12/14/17 23:59 23:59 23:59 Intake Total 3083 / 3083 480 / 480 Balance 3083 / 3083 480 / 480 Microbiology Past 72 Hours 12/13/17 11:55 Mucosa - Nasopharyngeal Respiratory Panel (PCR) - Final Rhinovirus Laboratory Results 12/13/17 08:07: POC Glucose 164 H 12/13/17 11:18: POC Glucose 277 H 12/13/17 16:34: POC Glucose 172 H 12/13/17 21:07: POC Glucose 228 H 12/14/17 05:10: WBC 9.5, RBC 4.79, Hgb 13.6, Hct 41.4, MCV 86.4, MCH 28.4, MCHC 32.9, RDW 13.9, RDW Differential 43.5, Plt Count 298, MPV 9.7 12/14/17 05:10: Sodium 141, Potassium 4.2, Chloride 101, Carbon Dioxide 32.0, Anion Gap 8, BUN 15, Creatinine 0.76, Estim Creat Clear Calc 69.26, Est GFR ( MDRD) Af Amer 104, Est GFR (MDRD) Non-Af 86, BUN/Creatinine Ratio 19.8, Glucose 268 H, Calcium 9.2, Magnesium 2.1 12/14/17 07:26: POC Glucose 204 H Current Medications Acetaminophen (Tylenol) 650 mg PO Q6H PRN PRN PRN Reason: Mild Pain (scale 0-3)/T>100.7 Last Admin: 12/14/17 02:26 Dose: 650 mg Albuterol/Ipratropium (Duoneb) 3 ml INHALATION Q4H.RT [facility] Last Admin: 12/14/17 07:01 Dose: 3 ml Alprazolam (Xanax) 0.5 mg PO BID PRN PRN PRN Reason: ANXIETY Last Admin: 12/13/17 13:43 Dose: 0.5 mg Atenolol (Tenormin (Beta Karina)) 100 mg PO DAILY [facility] Last Admin: 12/13/17 09:38 Dose: 100 mg Bupropion HCl (Wellbutrin Sr (100mg Tablets)) 200 mg PO BID [facility] Last Admin: 12/13/17 21:11 Dose: 200 mg Dextrose (D50w Syringe) 0 gm IV X1 PRN; Protocol PRN Reason: Hypoglycemia Docusate Sodium (Colace) 200 mg PO BID [facility] Last Admin: 12/13/17 21:11 Dose: 200 mg Ferrous Sulfate (Ferrous Sulfate) 325 mg PO DAILYCM [facility] Last Admin: 12/14/17 07:40 Dose: 325 mg Furosemide (Lasix) 20 mg PO DAILY [facility] Last Admin: 12/13/17 09:39 Dose: 20 mg Glucagon () 1 mg IM .X1 PRN PRN Reason: Hypoglycemia Guaifenesin (Mucinex) 1,200 mg PO BID [facility] Last Admin: 12/13/17 21:11 Dose: 1,200 mg Azithromycin 500 mg/ Dextrose 255 mls @ 250 mls/hr IV Q24 [facility] Stop: 12/15/17 11:02 Last Admin: 12/13/17 11:22 Dose: 250 mls/hr Ceftriaxone Sodium (Rocephin) 1 gm in 50 mls @ 100 mls/hr IV Q24 [facility] Last Admin: 12/13/17 09:36 Dose: 100 mls/hr Insulin Glargine (Lantus (Bkc)) 10 units SC BREAKFAST [facility] Last Admin: 12/14/17 07:36 Dose: 10 u Insulin Human Lispro (Humalog Kwikpen ([facility])) 0 unit SQ ACHS [facility] PRN Reason: Protocol Last Admin: 12/14/17 07:38 Dose: 4 u Magnesium Hydroxide (Milk Of Magnesia) 30 ml PO DAILY PRN PRN PRN Reason: Constipation Methylprednisolone (Solu-Medrol) 40 mg IV Q8 [facility] Last Admin: 12/14/17 06:24 Dose: 40 mg Pantoprazole Sodium (Protonix) 40 mg PO DAILY [facility] Last Admin: 12/13/17 09:38 Dose: 40 mg Pravastatin Sodium (Pravachol) 40 mg PO QHS [facility] Last Admin: 12/13/17 21:11 Dose: 40 mg Pregabalin (Lyrica) 300 mg PO BID [facility] Last Admin: 12/13/17 21:11 Dose: 300 mg Quetiapine Fumarate (Seroquel) 100 mg PO QHS [facility] Last Admin: 12/13/17 21:11 Dose: 100 mg Rivaroxaban (Xarelto) 20 mg PO DAILY@1700 [facility] Last Admin: 12/13/17 17:30 Dose: 20 mg Sodium Chloride () 5 - 30 ml IV UD PRN PRN Reason: SALINE FLUSH Last Admin: 12/13/17 13:28 Dose: 10 ml Trazodone HCl (Desyrel) 50 mg PO QHS [facility] Last Admin: 12/13/17 21:11 Dose: 50 mg Venlafaxine HCl (Effexor Xr) 300 mg PO QHS [facility] Last Admin: 12/13/17 21:11 Dose: 300 mg Medical Necessity - Tobacco Use Smoking Status: Current every day smoker Assessment/Plan All Active Problems (Last Reviewed 11/01/17 @ 10:53 by Audelia Glover) CAP (community acquired pneumonia) (Acute) UTI (urinary tract infection) (Acute) Livedo reticularis (Acute) Otitis media (Resolved) Itching (Resolved) COPD exacerbation (Acute) Healthcare-associated pneumonia (Acute) Shortness of breath (Acute) Patient is a 52-year-old lady with multiple comorbidities who presented with shortness of breath associated with productive cough, chest x-ray obtained and admission demonstrated Possible mild right middle lobe infiltrate. Slight cardiomegaly. Antibiotics initiated per protocol admitted to regular nursing floor for further management 1. Community-acquired pneumonia with suspected streptococcal pneumonia: Patient admitted to regular nursing floor managed with antibiotics per protocol (azithromycin as well as Rocephin) after cultures have been obtained. Patient also placed on supplemental oxygen titrated to keep pulse ox greater than 90 2. COPD exacerbation precipitated by above in addition to patient rhinovirus infection 3. History of multiple pulmonary embolism as DVTs patient is on Xarelto 4. Morbid obesity with a BMI of 48.3 advised on weight reduction 5. Hypertension: Continue with home medications with plans to adjust doses as needed 6. GERD: Continued PPI 7. Depression: Continued SSRI. 8. Obstructive sleep apnea uses CPAP at night 9. Diabetes mellitus type II: Controlled patient's oral hypoglycemics held. Placed on long acting insulin, Accu-Cheks a.c. and at bedtime and covered with sliding scale insulin 10. Tobacco dependence counseled on cessation, offered nicotine patch for tobacco cravings 11. DVT prophylaxis on Xarelto Active Medications Acetaminophen (Tylenol) 650 mg PO Q6H PRN PRN PRN Reason: Mild Pain (scale 0-3)/T>100.7 Last Admin: 12/13/17 06:08 Dose: 650 mg Albuterol/Ipratropium (Duoneb) 3 ml INHALATION Q4H.RT [facility] Last Admin: 12/13/17 07:35 Dose: 3 ml Alprazolam (Xanax) 0.5 mg PO BID PRN PRN PRN Reason: ANXIETY Last Admin: 12/13/17 00:22 Dose: 0.5 mg Atenolol (Tenormin (Beta Karina)) 100 mg PO DAILY [facility] Docusate Sodium (Colace) 200 mg PO BID [facility] Ferrous Sulfate (Ferrous Sulfate) 325 mg PO DAILYCM [facility] Furosemide (Lasix) 20 mg PO DAILY [facility] Glimepiride (Amaryl) 4 mg PO DAILYCM [facility] Azithromycin 500 mg/ Dextrose 255 mls @ 250 mls/hr IV Q24 [facility] Stop: 12/15/17 11:02 Ceftriaxone Sodium (Rocephin) 1 gm in 50 mls @ 100 mls/hr IV Q24 [facility] Magnesium Hydroxide (Milk Of Magnesia) 30 ml PO DAILY PRN PRN PRN Reason: Constipation Metformin HCl (Glucophage) 1,000 mg PO BIDCM [facility] Methylprednisolone (Solu-Medrol) 40 mg IV Q8 [facility] Last Admin: 12/13/17 06:08 Dose: 40 mg Non-Formulary Medication (Bupropion Hcl [Bupropion Hcl Sr]) 400 mg PO DAILY [facility] Pantoprazole Sodium (Protonix) 40 mg PO DAILY [facility] Pravastatin Sodium (Pravachol) 40 mg PO QHS [facility] Pregabalin (Lyrica) 300 mg PO BID [facility] Last Admin: 12/13/17 00:22 Dose: 300 mg Quetiapine Fumarate (Seroquel) 100 mg PO QHS [facility] Rivaroxaban (Xarelto) 20 mg PO DAILY@1700 [facility] Sodium Chloride () 5 - 30 ml IV UD PRN PRN Reason: SALINE FLUSH Last Admin: 12/13/17 06:08 Dose: 10 ml Trazodone HCl (Desyrel) 50 mg PO QHS [facility] Venlafaxine HCl (Effexor Xr) 300 mg PO QHS [facility] Clinical Impression(s) from Imaging Studies Chest X-Ray 12/12/17 20:40 IMPRESSION: Possible mild right middle lobe infiltrate. Slight cardiomegaly. Electronically Signed: Tang Loo DO at 21:35 EDT Tel [phone], Service support , Code Visit Inpatient E&M: 52745 Subs Hosp L2
[2017-12-14] MEDS: Ceftriaxone 1 GM/50 ML BAG IV (09:41)
[2017-12-14] MEDS: Pregabalin 75 MG Capsule 300 MG PO ×2 (09:41→21:48)
[2017-12-14] MEDS: ALPRAZolam 0.5 MG Tablet PO ×2 (09:41→21:55)
[2017-12-14] MEDS: Docusate Sodium 100 MG Capsule 200 MG PO ×2 (09:44→21:49)
[2017-12-14] MEDS: Pantoprazole Sodium 40 MG Tablet PO (09:44)
[2017-12-14] MEDS: Furosemide 20 MG Tablet PO (09:44)
[2017-12-14] MEDS: Atenolol 100 MG Tablet PO (09:44)
[2017-12-14] MEDS: guaiFENesin 1,200 MG Tablet 1200 MG PO ×2 (09:44→21:49)
[2017-12-14] MEDS: buPROPion (SR) 100 MG TABLET.SA 200 MG PO ×2 (09:45→21:49)
--- NOTE | 2017-12-14 11:41 | CASEMGMT ---
Face to Face with patient for initial transition planning/care coordination assessment. DAMIEN REVELES introduced self and role at [facility], pt voices understanding and consents to assessment at this time. Pt is sitting up in bed in no distress at this time. Pt is A/O x4 at this time and answers all questions appropriately at this time. Care providers, pharmacy, and demographics verified. See attached link. Pt voices no further concerns/needs at this time. Advised pt to ask for CM if any further questions/concerns/needs arise, voices understanding. Pt is unsure of oxygen order at this time, so call to Kathy at [facility] and she states that pt has order for 3 liters continuous at this time. Kathy aware that some of pt's portable tanks are empty and that pt would like a new filter for her cpap, voices understanding. Shaan QUEZADA CM updated on all at this time and voices understanding. CM to follow for any further discharge planning/needs. PLAN: Home w/ resumption of HHC aide. Shelbi QUEZADA CM
[2017-12-14 11:45] LABS: Bedside Glucose 417 mg/dL (70-110)
[2017-12-14 13:36] LABS: Bedside Glucose 203 mg/dL (70-110)
[2017-12-14] MEDS: 0.9% NaCl Peripheral Flush Adult/Peds IV (13:40)
[2017-12-14 16:06] LABS: Bedside Glucose 150 mg/dL (70-110)
[2017-12-14] MEDS: Rivaroxaban 20 MG Tablet PO (17:47)
--- NOTE | 2017-12-14 18:39 | EKG12_ITS ---
Test Reason : CP Blood Pressure : / mmHG Vent. Rate : 063 BPM Atrial Rate : 063 BPM P-R Int : 154 ms QRS Dur : 082 ms QT Int : 418 ms P-R-T Axes : 000 072 086 degrees QTc Int : 427 ms Normal sinus rhythm Normal ECG Confirmed by RAMSEY DEAN, JENNIFER ([id number]), make up editor FIFI URRUTIA ([id number]) on 12/22/2017 2:36:46 PM Referred By: Trevor Claire Confirmed By:JENNIFER MUSTAFA MD
[2017-12-14] MEDS: QUEtiapine 100 MG Tablet PO (21:48)
[2017-12-14] MEDS: Pravastatin 40 MG Tablet PO (21:49)
[2017-12-14] MEDS: Venlafaxine XR 150 MG Capsule 300 MG PO (21:49)
[2017-12-14] MEDS: traZODone 50 MG Tablet PO (21:49)
[2017-12-14 22:06] LABS: Bedside Glucose 217 mg/dL (70-110)
[2017-12-15 01:53] VITALS: PULSE 61
[2017-12-15 03:11] VITALS: BP 137/77; PULSE 62; RESP 18; TEMP 36.4; O2SAT 96
[2017-12-15 05:33] LABS: Hematocrit 45.3 % (37-47); Hemoglobin 14.4 g/dl (12.0-15.0); Mean Corp Hgb Conc 31.8 g/gl (32-36); Mean Corpuscular Hgb 27.7 pg (27.0-32.0); Mean Corpuscular Volume 87.1 fL (81-99); Mean Platelet Vol. 9.5 fl (6.2-12.0); Platelet Count 349 K/mm3 (150-450); RBC Distribution Width CV 14.1 % (11.6-14.6); RBC Distribution Width SD 45.6 fl (35.1-43.9); White Blood Count 10.1 K/mm3 (4.4-11.0)
[2017-12-15 05:34] LABS: Scan Indicated on CBC? Y/N NO
[2017-12-15 05:52] LABS: Anion Gap 9 (5-15); BUN 18 mg/dL (7-18); BUN/Creat Ratio 23.1 RATIO (10-20); Calcium,Total 9.1 mg/dL (8.5-10.1); Chloride 98 mmol/L (98-107); Creatinine, Serum 0.78 mg/dL (0.55-1.02); EST Glomerular Filtration Rate 83 mL/min (>60); Est Glom Filt Rate - Afr Amer 100 mL/min (>60); Estimated Creatinine Clearance 67.49 ml/min; Glucose 278 mg/dL (74-106); Potassium 4.1 mmol/L (3.5-5.1); Sodium Level 140 mmol/L (136-145)
[2017-12-15 06:00] VITALS: PULSE 59
[2017-12-15 07:12] VITALS: PULSE 62; RESP 18; O2SAT 94
[2017-12-15] MEDS: Ipratropium/Albuterol Sulfate 3 ML AMPUL.NEB INHALATION (07:12)
[2017-12-15] MEDS: Insulin Lispro 100 UNIT/ML INSULN.PEN SQ (08:07)
[2017-12-15] MEDS: Pantoprazole Sodium 40 MG Tablet PO (08:08)
[2017-12-15] MEDS: buPROPion (SR) 100 MG TABLET.SA 200 MG PO (08:08)
[2017-12-15] MEDS: Furosemide 20 MG Tablet PO (08:09)
[2017-12-15] MEDS: Docusate Sodium 100 MG Capsule 200 MG PO (08:09)
[2017-12-15] MEDS: Ferrous Sulfate 325 MG Tablet PO (08:09)
[2017-12-15] MEDS: Atenolol 100 MG Tablet PO (08:10)
[2017-12-15] MEDS: guaiFENesin 1,200 MG Tablet 1200 MG PO (08:10)
[2017-12-15] MEDS: Pregabalin 75 MG Capsule 300 MG PO (08:12)
--- NOTE | 2017-12-15 08:20 | PCM.DC ---
- Discharge Diagnoses Current Active Problems: Current Active and Chronic Problems (Last Reviewed 11/01/17 @ 10:53 by Audelia Glover) CAP (community acquired pneumonia) (Acute) UTI (urinary tract infection) (Acute) You will use the following diet at home:: Calorie/Carbohydrate Controlled (specify 1200, 1400, etc) - 1800 Your food should be the consistency of: Regular Discharge Activity: Return to Normal Activity Allergies/Adverse Reactions: Allergies enoxaparin sodium [From Lovenox] Allergy (Mild, Verified 12/12/17 23:13) Itching heparin Allergy (Verified 12/12/17 21:14) Itching varenicline [From Chantix] Adverse Reaction (Intermediate, Verified 12/12/17 23:13) MENTAL ISSUES MADE ME GO CRAZY, PUT ME IN THE [facility] Medications to take at Discharge Alprazolam 0.5 mg PO BID PRN PRN 12/15/13 Atenolol 100 mg PO DAILY 12/15/13 Omeprazole [Prilosec] 40 mg PO DAILY 12/15/13 Ferrous Sulfate 325 mg PO DAILY 03/17/14 Pravastatin [Pravachol] 40 mg PO QHS 03/17/14 Glimepiride [Amaryl] 4 mg PO DAILY 04/23/15 Furosemide [Lasix] 20 mg PO DAILY 06/30/16 bupropion HCl SR 200 mg tablet,12 hr sustained-release 400 mg PO DAILY tab 03/10/17 docusate sodium 100 mg capsule 200 mg PO BID cap 03/10/17 metformin 500 mg tablet 1,000 mg PO BIDCM tab 03/10/17 pregabalin 300 mg capsule 300 mg PO BID 03/10/17 rivaroxaban 20 mg tablet 20 mg PO DAILY tab 03/10/17 venlafaxine ER 75 mg capsule,extended release 24 hr 300 mg PO QHS cap 03/10/17 albuterol sulfate 2.5 mg/3 mL (0.083 %) solution for nebulization 2.5 mg INHALATION Q2H PRN PRN #100 vial.neb. 04/20/17 umeclidinium 62.5 mcg/actuation blister powder for inhalation 62.5 mcg INHALATION DAILY #30 ea 11/01/17 Fluticasone/Vilanterol [Breo Ellipta 200-25 Mcg INH] 1 ea INHALATION QDAY 12/12/17 Quetiapine Fumarate [Seroquel] 100 mg PO QHS 12/12/17 traZODone [Desyrel] 50 mg PO QHS 12/13/17 Doxycycline 100 mg PO BID #14 cap 12/15/17 Guaifenesin [Mucinex] 1,200 mg PO BID #14 tab 12/15/17 Prednisone [Deltasone] 20 mg PO BID #10 tab 12/15/17 The following prescriptions were given: Doxycycline 100 mg PO BID #14 cap Guaifenesin [Mucinex] 1,200 mg PO BID #14 tab Prednisone [Deltasone] 20 mg PO BID #10 tab Primary Care Physician: Camilo Sloan DO [Primary Care Provider] - Please follow up with your Primary Care Physician in: in 5-7 days Test Results: Test results from this visit will be discussed in further detail at your follow-up appointment, if applicable. Proposed Discharge Date: 12/15/17
[2017-12-15 08:21] LABS: Bedside Glucose 222 mg/dL (70-110)
--- NOTE | 2017-12-15 08:22 | PCM.DC.SUM ---
Discharge Date and Diagnosis - Problem List Patient Problems: Active and Suspected Problems (Last Reviewed 11/01/17 @ 10:53 by Audelia Glover) CAP (community acquired pneumonia) (Acute) Date of Admission: 12/12/17 Date of Discharge: 12/15/17 - Primary Discharge Diagnosis Active and Suspected Problems (Last Reviewed 11/01/17 @ 10:53 by Audelia Glover) CAP (community acquired pneumonia) (Acute) - Secondary Discharge Diagnosis Chronic Problems (Last Reviewed 11/01/17 @ 10:53 by Audelia Glover) Fibromyalgia (Chronic) Morbid (severe) obesity due to excess calories (Chronic) Nicotine dependence, uncomplicated (Chronic) Patient's noncompliance with other medical treatment and regimen (Chronic) Obstructive sleep apnea (Chronic) Chronic sinusitis (Chronic) Bronchitis (Chronic) HTN (hypertension) (Chronic) Osteoarthritis of right hip (Chronic) Costal chondritis (Chronic) Chronic hypoxemic respiratory failure (Chronic) Anxiety disorder (Chronic) History of DVT of lower extremity (Chronic) History of pulmonary embolus (PE) (Chronic) Tobacco dependence syndrome (Chronic) Rheumatoid arthritis (Chronic) Chronic back pain (Chronic) COPD, frequent exacerbations (Chronic) Hospital Course and Treatment Imaging Results: Clinical Impression(s) from Imaging Studies Chest X-Ray 12/12/17 20:40 IMPRESSION: Possible mild right middle lobe infiltrate. Slight cardiomegaly. Electronically Signed: Tang Loo DO at 21:35 EDT Tel [phone], Service support , Operations: None Summary of Care Provided: Patient is a 52-year-old lady with multiple comorbidities who presented with shortness of breath associated with productive cough, chest x-ray obtained and admission demonstrated Possible mild right middle lobe infiltrate. Slight cardiomegaly. Antibiotics initiated per protocol admitted to regular nursing floor for further management 1. Community-acquired pneumonia with suspected streptococcal pneumonia: Patient admitted to regular nursing floor managed with antibiotics per protocol (azithromycin as well as Rocephin) after cultures have been obtained. Patient also placed on supplemental oxygen titrated to keep pulse ox greater than 90 2. COPD exacerbation precipitated by above in addition to patient rhinovirus infection 3. History of multiple pulmonary embolism as DVTs patient is on Xarelto 4. Morbid obesity with a BMI of 48.3 advised on weight reduction 5. Hypertension: Continue with home medications with plans to adjust doses as needed 6. GERD: Continued PPI 7. Depression: Continued SSRI. 8. Obstructive sleep apnea uses CPAP at night 9. Diabetes mellitus type II: Controlled patient's oral hypoglycemics held. Placed on long acting insulin, Accu-Cheks a.c. and at bedtime and covered with sliding scale insulin 10. Tobacco dependence counseled on cessation, offered nicotine patch for tobacco cravings 11. DVT prophylaxis on Xarelto Discharge Diet: 1800 Calorie Control Diet Discharge Activity: Return to Normal Activity Home Medications: Medications to take at Discharge Alprazolam 0.5 mg PO BID PRN PRN 12/15/13 Atenolol 100 mg PO DAILY 12/15/13 Omeprazole [Prilosec] 40 mg PO DAILY 12/15/13 Ferrous Sulfate 325 mg PO DAILY 03/17/14 Pravastatin [Pravachol] 40 mg PO QHS 03/17/14 Glimepiride [Amaryl] 4 mg PO DAILY 04/23/15 Furosemide [Lasix] 20 mg PO DAILY 06/30/16 bupropion HCl SR 200 mg tablet,12 hr sustained-release 400 mg PO DAILY tab 03/10/17 docusate sodium 100 mg capsule 200 mg PO BID cap 03/10/17 metformin 500 mg tablet 1,000 mg PO BIDCM tab 03/10/17 pregabalin 300 mg capsule 300 mg PO BID 03/10/17 rivaroxaban 20 mg tablet 20 mg PO DAILY tab 03/10/17 venlafaxine ER 75 mg capsule,extended release 24 hr 300 mg PO QHS cap 03/10/17 albuterol sulfate 2.5 mg/3 mL (0.083 %) solution for nebulization 2.5 mg INHALATION Q2H PRN PRN #100 vial.neb. 04/20/17 umeclidinium 62.5 mcg/actuation blister powder for inhalation 62.5 mcg INHALATION DAILY #30 ea 11/01/17 Fluticasone/Vilanterol [Breo Ellipta 200-25 Mcg INH] 1 ea INHALATION QDAY 12/12/17 Quetiapine Fumarate [Seroquel] 100 mg PO QHS 12/12/17 traZODone [Desyrel] 50 mg PO QHS 12/13/17 Doxycycline 100 mg PO BID #14 cap 12/15/17 Guaifenesin [Mucinex] 1,200 mg PO BID #14 tab 12/15/17 Prednisone [Deltasone] 20 mg PO BID #10 tab 12/15/17 Following Prescrptions Were Given to Patient: Doxycycline 100 mg PO BID #14 cap Guaifenesin [Mucinex] 1,200 mg PO BID #14 tab Prednisone [Deltasone] 20 mg PO BID #10 tab Primary Care Physician: Camilo Sloan DO [Primary Care Provider] - Please follow up with your Primary Care Physician in: in 5-7 days Disposition: Home Minutes spent on discharge:: 40 Patient Condition:: Stable Medical Necessity - Tobacco Use Smoking Status: Current every day smoker Meaningful Use Info Meaningful Use Diagnoses (Choose all that apply): None applicable Code Visit Inpatient E&M: 08063 Disch Hosp
--- NOTE | 2017-12-15 10:14 | CASEMGMT ---
RN Note. DC Plan home today. Daughter will provide ride home. Discussed skilled home care with pt. She declines, states she is at baseline and her daughter assists her. -DC Summary/instructions faxed to [place]. -Transportation flyer for [facility] given to patient. No further dc needs identified. Carol Ann RODRIGUEZ RN AC
[2017-12-15] MEDS: Acetaminophen 325 MG Tablet 650 MG PO (10:29)
[2017-12-15] MEDS: ALPRAZolam 0.5 MG Tablet PO (10:38)
[2017-12-15 10:40] VITALS: BP 145/97; PULSE 67; RESP 20; TEMP 36.8; O2SAT 96
--- NOTE | 2017-12-15 11:32 | CASEMGMT ---
RN CM Note. F/U appointment made with [facility] for Dec 20 @ 0930. Call to patient via phone, she took information and will go to f/u appointment. Carol Ann RODRIGUEZ RN ACM
--- NOTE | 2017-12-17 19:33 | CASEMGMT ---
DAMIEN REVELES DISCHARGE FOLLOW-UP PHONE CALL. KEY: 11 STRATA: 3 CALL DATE: 12/17/17 DISCHARGE DATE: 12/15/17 DAMIEN REVELES spoke w/pt re: how she has been feeling since discharged from the hospital. Pt states she has been feeling better..a little bit at a time. Pt states her medications were delivered to her home and denies having any questions about the medications. Pt reports that she has an appt w/ Dr Sloan on Tuesday 12/19 9 AM. Pt asked if she had any suggestions for [facility]. Pt stated that when she was here at the hospital that she had requested to see her specialist, Dr Mensah, but that the hospitalist told her she could see him as an out-pt. Pt suggested that pt's be allowed to see their specialists if they request while at the hospital. Pt then stated, Otherwise, everyone there was so wonderful, so that's the only suggestion I'd make and stated [facility] is a great hospital. Pt states she is also planning on making an appt w/Dr Mensah for follow-up. Pt stated she has no questions or other suggestions or concerns. DAMIEN REVELES thanked pt for choosing [facility]. Batool RODRIGUEZ RN, CM
== END 2017-12-15 10:53 | disposition home or self-care (01) | DRG 89 ==
LOC: ED 19:47 → MS2 22:13
PROVIDERS: Admitting Provider Family Medicine; Emergency Provider Emergency Medicine; Family Provider Preventive Medicine Occupational Medicine; PCP Preventive Medicine Occupational Medicine; Visit Provider Internal Medicine
DX: J15.4 Pneumonia due to other streptococci (principal); J96.11 Chronic respiratory failure with hypoxia; J44.1 Chronic obstructive pulmonary disease with (acute) exacerbation; J44.0 Chronic obstructive pulmonary disease with (acute) lower respiratory infection; E66.01 Morbid (severe) obesity due to excess calories; Z68.42 Body mass index [BMI] 45.0-49.9, adult; M79.7 Fibromyalgia; F17.200 Nicotine dependence, unspecified, uncomplicated; I10 Essential (primary) hypertension; Z86.718 Personal history of other venous thrombosis and embolism; Z86.711 Personal history of pulmonary embolism; M06.9 Rheumatoid arthritis, unspecified; Z99.81 Dependence on supplemental oxygen; B97.89 Other viral agents as the cause of diseases classified elsewhere; F32.9 Major depressive disorder, single episode, unspecified; G47.33 Obstructive sleep apnea (adult) (pediatric); E11.9 Type 2 diabetes mellitus without complications; Z79.84 Long term (current) use of oral hypoglycemic drugs; G89.29 Other chronic pain; M54.9 Dorsalgia, unspecified; F41.9 Anxiety disorder, unspecified
CPT/HCPCS: 36415; 71046; 80048; 81001; 82962; 83605; 83735; 84484; 85025; 85027; 87040; 87633; 93005; 94640; 97802; 99283; 99406; A4216; J2405

== ENCOUNTER 2017-12-19 16:17 | Emergency (ER) | payer MEDICAID, SELFPAY ==
[2017-12-19 16:18] VITALS: BP 145/68; PULSE 66; RESP 18; TEMP 37.1; O2SAT 100; BMI 47.9
--- NOTE | 2017-12-19 16:34 | RAD_ITS ---
STUDY: X-RAY - PELVIS AND RIGHT HIP REASON FOR EXAM: Female, 52 years old. Arthritis status post fall TECHNIQUE: Radiological exam, hip, unilateral, with pelvis when performed; 2 or 3 views. COMPARISON: March 17, 2015 right hip x-ray FINDINGS: There is a non-specific bowel gas pattern. Normal visualized soft tissue structures. Normal bilateral iliac wings, sacroiliac joints and visualized sacrum. Normal bilateral superior and inferior pubic rami. Normal pubic symphysis. Normal bilateral ischial tuberosities. There is severe narrowing of the right hip joint with sclerosis and acetabular protrusio. Within the subcapital femoral neck there is suggestion of possible chronic sclerosis and/or potentially impaction. There is mild to moderate degenerative change in the left hip joint. RAD/HIP, UNI W/ Pelvis 2-3 Views IMPRESSION: Advanced degenerative change of the right femoral neck and head remodeling and acetabular protrusio for which a subtle nondisplaced impacted fracture is not entirely excluded. Recommend consideration for follow-up MRI of the right hip if possible. Electronically Signed: Mechelle Quinones MD at 16:58 EDT Tel , Service support ,
[2017-12-19] MEDS: HYDROcodone Bitartrate/Apap 5/325 Tablet PO (16:48)
--- NOTE | 2017-12-19 17:16 | CT_ITS ---
STUDY: CT SCAN HIP WITHOUT CONTRAST RIGHT REASON FOR EXAM: Female, 52 years old. That is post fall RADIATION DOSAGE (If Supplied By Facility): CTDIvol = ( 76.10 ) mGy, DLP = ( 1963.06 ) mGycm. Individualized dose optimization techniques were used for this CT.? TECHNIQUE: Multiple axial axial images of the right hip were obtained from the iliac crests to the proximal femur without contrast. Sagittal coronal reformatted images are performed. COMPARISON: December 19, 2017 right hip x-ray FINDINGS: There is moderate to severe narrowing of the right hip joint with sclerosis acetabular protrusio and acetabular spurring. There is heterotopic bone formation. There is no visualized evidence of an acute fracture. There is visualized degenerative change in the SI joints. CT/Extremity Lower without Contra IMPRESSION: Advanced degenerative change of the right hip joint with acetabular protrusio no visualized evidence of an acute fracture. Electronically Signed: Mechelle Quinones MD at 17:58 EDT Tel , Service support ,
--- NOTE | 2017-12-19 18:23 | ED.DCSUM_ITS ---
- ER Visit Summary Date of Service: 12/19/17 Chief Complaint: Hip pain History of Present Illness: The patient is a 52 F with right hip pain that radiates into her right groin. This happened after a fall. The fall was earlier today. She was bending forward to pick up man paper from the ground, lost her balance, and fell. She hit her right hip. Denies hitting her head or neck. Denies loss of consciousness. She does take Xarelto. No other injuries or complaints. She does have chronic right hip pain. Physical Examination: Afebrile and vital signs unremarkable. Head and neck atraumatic. Alert and oriented. No acute distress. Heart regular. Lungs clear. Right hip tender to palpation and pain with range of motion. Negative logroll. Neurovascular intact distally. No shortening or abnormal rotation. Test Results: X-rays show degenerative changes. Could not rule out fracture. CT was done and showed no evidence of fracture. Emergency Department Course and Treatment: Patient received [place] for pain. She was able to ambulate without difficulty. I did check her prescription report and will prescribe a short course of Percocet. Advised to follow-up with her doctor. She denies any other injuries. I advised that even a small head injury could cause bleeding in her head. She assured me that she did not hit her head and did not want to be evaluated for head injury. Treatment Plan: As above Disposition: Discharged Impression: 1. Right hip pain This note was generated with [employer] dictation software. It may contain incorrect words, spelling, and punctuation that were not noted in review of the chart prior to signing ED Disposition - Plan for ED Patient: Chief Complaint: Lower Extremity Injury Referrals: Camilo Sloan DO [Primary Care Provider] -
--- NOTE | 2017-12-19 18:23 | ED.DEP ---
ED Disposition - Plan for ED Patient: Chief Complaint: Lower Extremity Injury Instructions: ED Sprain Hip Prescriptions: Oxycodone HCl/Acetaminophen [Percocet 5/325] 1 tab PO Q6H PRN PRN 3 Days #12 tab PRN Reason: Pain Referrals: Camilo Sloan DO [Primary Care Provider] -
[2017-12-19 18:38] VITALS: BP 141/79; PULSE 83; RESP 17; O2SAT 96
== END 2017-12-19 18:39 | disposition home or self-care (01) ==
PROVIDERS: Emergency Provider Emergency Medicine; Family Provider Preventive Medicine Occupational Medicine; PCP Preventive Medicine Occupational Medicine
DX: M16.11 Unilateral primary osteoarthritis, right hip (principal); Z79.01 Long term (current) use of anticoagulants; Z79.899 Other long term (current) drug therapy; Z72.0 Tobacco use
CPT/HCPCS: 73502; 73700; 99283

== ENCOUNTER 2018-03-07 16:51 | Emergency (ER) | payer MEDICAID, SELFPAY ==
[2018-02-21 13:06] VITALS: BMI 47.9
[2018-03-07 16:52] VITALS: TEMP 36.6; O2SAT 92; BMI 50.5
[2018-03-07 16:55] VITALS: BP 167/81; PULSE 76; RESP 18
--- NOTE | 2018-03-07 17:10 | ED.DCSUM_ITS ---
- ER Visit Summary Date of Service: 03/07/18 Chief Complaint: Whole right leg History of Present Illness: The patient is a 52 F who has multiple medical problems who presents with pain right leg that started after fall 1 week ago. He localizes pain to the mid anterior right leg. She also reports that she has no sensation when I touch her toes or feet. She does not see per here/legs as much as she used to. She has history of hypertension, diabetes, hypercholesteremia is a smoker. She does report symptoms of claudication occasionally. She cannot tell me how far she walks prior to having symptoms. She denies fever, chills night sweats. She denies polyuria, polydipsia or polyphagia. She denies nocturia. She denies pain at rest. Physical Examination: Vital signs noted and remarkable for an elevated blood pressure of 157/81. There is soft tissue swelling with tenderness over the area of discomfort. There is no pain abrasion over the right tibia or fibula. There is no tenderness along the joint line of the right knee. Patella is not ballotable. There is no effusion. There is no laxity with varus valgus stress testing. There is no laxity with Miguel's test. Modified Marilou's test is negative, as well. There is no palpable DP or PT pulse right or left. There is no flow right DP. There is triphasic flow right PT. There is biphasic flow left DP and PT. There is no pain to palpation of the lateral medial malleolus. There is no pain palpation base of the fifth metatarsal. Test Results: Doppler was performed to assess for flow and documented. Emergency Department Course and Treatment: Patient was informed that she has peripheral arterial disease. She was informed that when she walks long distances this is the most likely cause of her pain. She was informed that is in her best interest to throw away her pack of cigarettes as she walks out the emergency room doors. She was educated that if she loses any parts of her lower extremity there is a two third likelihood of her losing another body part in 5 years. Treatment Plan: Rest, elevation, ice Tylenol since NSAIDs would not be appropriate in this patient. She was referred to her primary care physician Dr. Camilo Lawler for outpatient testing to assess for severity of her peripheral arterial disease. Disposition: Discharged home in stable condition Impression: 1. Anterior right leg pain secondary to contusion initial encounter 2. Paresthesias secondary to PAD and diabetes 3. Peripheral arterial disease 4. History of diabetes 5. History of hypertension 6. History of tobacco use This note was generated with [employer] dictation software. It may contain incorrect words, spelling, and punctuation that were not noted in review of the chart pr ior to signing ED Disposition - Plan for ED Patient: Disposition: Home or Assisted Living Chief Complaint: Lower Extremity Injury Instructions: ED Contusion Lower Ext, ED PVD, ED Neuropathy Peripheral, ED Smoking Cessation Referrals: Care Physician,No Primary [NON-STAFF] - Camilo Sloan DO [Family Provider] - 1 Week Additional Instructions: You need to follow-up with your doctor and have arrangements for outpatient testing to assess severity of your peripheral vascular/peripheral arterial disease.
[2018-03-07 17:34] VITALS: BP 136/82; PULSE 88; RESP 16; O2SAT 97
== END 2018-03-07 17:38 | disposition home or self-care (01) ==
PROVIDERS: Emergency Provider Emergency Medicine; Family Provider Preventive Medicine Occupational Medicine; PCP Preventive Medicine Occupational Medicine
DX: S80.11XA Contusion of right lower leg, initial encounter (principal); W19.XXXA Unspecified fall, initial encounter; Y93.9 Activity, unspecified; Y92.9 Unspecified place or not applicable; E11.51 Type 2 diabetes mellitus with diabetic peripheral angiopathy without gangrene; E78.00 Pure hypercholesterolemia, unspecified; I10 Essential (primary) hypertension; F17.210 Nicotine dependence, cigarettes, uncomplicated
CPT/HCPCS: 99285

== ENCOUNTER → 2018-03-23 12:05 | Outpatient (CLI) | payer MEDICAID, SELFPAY ==
[2018-03-07 16:52] VITALS: BMI 50.5
== END ==
PROVIDERS: Family Provider Preventive Medicine Occupational Medicine; PCP Preventive Medicine Occupational Medicine; Referring Provider Nurse Practitioner Acute Care; Visit Provider Nurse Practitioner Acute Care
DX: J40 Bronchitis, not specified as acute or chronic (principal)
CPT/HCPCS: 87070; 87205

== ENCOUNTER 2018-06-22 22:32 | Emergency (ER) | payer MEDICAID, SELFPAY ==
[2018-06-14 14:10] VITALS: BMI 47.8
[2018-06-22 22:34] VITALS: BP 131/73; PULSE 91; RESP 18; TEMP 37.1; O2SAT 94; BMI 50.9
--- NOTE | 2018-06-22 22:54 | ED.DCSUM_ITS ---
- ER Visit Summary Date of Service: 06/22/18 Chief Complaint: Fall History of Present Illness: The patient is a 52 F who presents with right hip pain. Much of the history is provided by the daughter because she she states the patient forgets things. Patient states that she fell earlier today about 1:00 PM when she slipped on a toy and fell onto her right side. No loss of consciousness. No amnesia. No significant headache. She denies chest pain difficulty breathing abdominal pain back pain. She also complains of pain in her knee. She rates her pain as severe. It is worse when she attempts to bear weight. She is able to bear weight a little bit. She does have a history of chronic right hip and knee pain. She states she required assistance to get up and has not ambulated since the fall due to pain. She did take Tylenol about 2- 1/2 hours ago. Patient states she did not want to come to the ER but her family member made me. Physical Examination: Afebrile vitals normal No distress Heart regular rate and rhythm Lungs clear Abdomen soft Patient has no reproducible pain of the knee ankle or foot there is no deformity there is no limb shortening or rotation I am unable to palpate dorsalis pedis pulses but she has a strong Doppler signal of the posterior tibial pulse bilaterally, capillary refill is 2 seconds. Test Results: Hip x-ray shows a probable impacted subcapital fracture. EKG shows sinus rhythm at a rate of 78. CBC BMP INR unremarkable. Chest x-ray shows no active disease. The right lower extremity shows no fracture. There are severe degenerative changes. Emergency Department Course and Treatment: On obtaining the results of the hip x-ray did obtain medical clearance in anticipation for need for surgical intervention and discussed the patient with orthopedics on-call. The x-ray changes are subtle and could just be related to sclerosis and chronic changes so we did obtain a CT to further evaluate. CT actually does not show a fracture. Patient was also given IV morphine here. On reevaluation we discussed whether she thought she needed admitted for symptom control and rehabilitation versus discharge with a walker and pain medication. She would prefer to go home. She was able to ambulate with a walker here. She was given a prescription for Percocet and discharged. Treatment Plan: [] Disposition: Discharge Impression: Right hip pain This note was generated with [employer] software. It may contain incorrect words, spelling, and punctuation that were not noted in review of the chart prior to signing ED Disposition - Plan for ED Patient: Referrals: Camilo Sloan DO [Primary Care Provider] -
[2018-06-22] MEDS: oxyCODONE 5 MG Tablet PO (22:56)
--- NOTE | 2018-06-22 23:00 | RAD_ITS ---
STUDY: X-RAY - RIGHT HIP REASON FOR EXAM: Female, 52 years old. Pain following fall. TECHNIQUE: AP pelvis and 2 views of the hip. COMPARISON: None. FINDINGS: There is sclerosis of the subcapital region of the left femoral neck. Impacted fracture is suspected. Normal acetabulum. There is moderate articular joint space narrowing. Normal visualized superior and inferior pubic rami and ischial tuberosities. RAD/HIP, UNI W/ Pelvis 2-3 Views IMPRESSION: 1. Probable impacted subcapital fracture of the right femoral neck. 2. Degenerative arthrosis. 3. If clinically indicated, CT scan of the hip might be of further value. Electronically Signed: Dustin Urena MD at 23:37 EDT Tel , Service support ,
--- NOTE | 2018-06-22 23:41 | RAD_ITS ---
STUDY: X-RAY CHEST REASON FOR EXAM: Female, 52 years old. Cough. TECHNIQUE: Single AP portable view of the chest. COMPARISON: 2017. FINDINGS: There is mild elevation of the right hemidiaphragm. There are slightly prominent markings but no focal infiltrate is seen. There is no demonstrated pleural abnormality. There is borderline cardiomegaly. Normal mediastinum and mony. Normal visualized pulmonary arteries. Normal visualized aortic arch and descending thoracic aorta. The thoracic spine is obscured by the mediastinum. There are mild degenerative changes in both shoulders There is no demonstrated abnormality of the visualized soft tissue structures of the upper abdomen. RAD/Chest 1 View (Portable) IMPRESSION: No active pulmonary disease. Electronically Signed: Dustin Urena MD at 0:08 EDT Tel , Service support ,
--- NOTE | 2018-06-22 23:41 | EKG12_ITS ---
Test Reason : LOWER EXTREMITY Blood Pressure : / mmHG Vent. Rate : 078 BPM Atrial Rate : 078 BPM P-R Int : 164 ms QRS Dur : 090 ms QT Int : 394 ms P-R-T Axes : 030 063 071 degrees QTc Int : 449 ms Normal sinus rhythm Normal ECG Confirmed by RAMSEY DEAN, JENNIFER ([id number]), business editor NUBIA COHN ([id number]) on 06/26/2018 11:46:17 AM Referred By: KALPANA Confirmed By:JENNIFER MUSTAFA MD
[2018-06-23 00:11] LABS: Absolute Lymphocyte Count 3.95 X10^3/ul (0.83-4.51); Absolute Neutrophil Count 6.9 X10^3/uL (2.0-7.7); Basophil# 0.03 X10^3/uL; Basophil% 0.3 % (0-1); Eosinophil# 0.21 X10^3/uL; Eosinophils% 1.8 % (0-5); Hematocrit 43.1 % (37-47); Hemoglobin 13.9 g/dl (12.0-15.0); Lymphocyte # 3.95 X10^3/ul (4.0); Lymphocyte % 33.1 % (19-41); Mean Corp Hgb Conc 32.3 g/gl (32-36); Mean Corpuscular Hgb 28.3 pg (27.0-32.0); Mean Corpuscular Volume 87.8 fL (81-99); Mean Platelet Vol. 10.2 fl (6.2-12.0); Monocyte# 0.78 X10^3/uL; Monocyte% 6.5 % (0-10); Neutrophil # 6.92 X10^3/uL (2.7-7.7); POSITIVE COUNT NO; POSITIVE DIFFERENTIAL NO; POSITIVE MORPHOLOGY NO; Platelet Count 265 K/mm3 (150-450); RBC Distribution Width CV 14.8 % (11.6-14.6); RBC Distribution Width SD 47.1 fl (35.1-43.9); Red Blood Count 4.91 M/mm3 (4.2-5.4); White Blood Count 11.9 K/mm3 (4.4-11.0)
[2018-06-23 00:19] LABS: International Normalized Ratio 1.1; Prothrombin Time (Protime)PT. 13.7 SECONDS (11.7-14.9)
[2018-06-23 00:22] LABS: Anion Gap 5 (5-15); BUN 11 mg/dL (7-18); Calcium,Total 8.6 mg/dL (8.5-10.1); Chloride 104 mmol/L (98-107); EST Glomerular Filtration Rate 62 mL/min (>60); Est Glom Filt Rate - Afr Amer 75 mL/min (>60); Estimated Creatinine Clearance 52.64 ml/min; Glucose 119 mg/dL (74-106); Potassium 4.3 mmol/L (3.5-5.1); Sodium Level 138 mmol/L (136-145)
[2018-06-23] MEDS: Morphine 4 MG/ML Syringe IV ×2 (00:23→02:32)
[2018-06-23] MEDS: Ondansetron 4 MG/2 ML Vial IV (00:23)
--- NOTE | 2018-06-23 02:14 | ED.DEP ---
ED Disposition - Plan for ED Patient: Instructions: ED Contusion Lower Ext Prescriptions: Oxycodone HCl/Acetaminophen [Percocet 5/325] 1 tab PO Q6H PRN PRN 3 Days #12 tab PRN Reason: Pain Referrals: Camilo Sloan DO [Primary Care Provider] -
[2018-06-23 02:57] VITALS: RESP 18
--- NOTE | 2018-06-23 23:49 | CT_ITS ---
HISTORY: S/P FALL WITH RIGHT HIP PAIN EXAM/TECHNIQUE: CT Hip W/O Contrast: Multiplanar reformats provided. COMPARISON: Right hip radiographs 06/22/18. FINDINGS: # of images incl. paperwork: 518 No fracture or dislocation. Marked right hip osteoarthritis with large marginal osteophytes extending off the femoral head, and joint space loss and subarticular sclerosis. No acute finding in the soft tissues. Urinary bladder decompressed with Nunes catheter. Facet degeneration L4-5. CT/Extremity Lower without Contra IMPRESSION: No fracture. Marked right hip osteoarthritis. Individualized dose optimization techniques were used for this CT. at 0115 Reported and signed by: Froilan King MD Electronically Signed: Froilan King, at 1:13 EDT Tel , Service support ,
== END 2018-06-23 02:59 | disposition home or self-care (01) ==
PROVIDERS: Emergency Provider Emergency Medicine; Family Provider Preventive Medicine Occupational Medicine; PCP Preventive Medicine Occupational Medicine
DX: M25.551 Pain in right hip (principal); G89.29 Other chronic pain; I11.0 Hypertensive heart disease with heart failure; I50.9 Heart failure, unspecified; E11.9 Type 2 diabetes mellitus without complications; J44.9 Chronic obstructive pulmonary disease, unspecified; Z79.84 Long term (current) use of oral hypoglycemic drugs; Z79.899 Other long term (current) drug therapy; Z86.73 Personal history of transient ischemic attack (TIA), and cerebral infarction without residual deficits; Z72.0 Tobacco use
CPT/HCPCS: 51702; 71045; 73502; 73700; 80048; 85025; 85610; 93005; 96374; 96375; 96376; 99285; J2405

== ENCOUNTER 2018-08-19 10:04 | Emergency (ER) | payer MEDICAID, SELFPAY ==
[2018-08-19 10:05] VITALS: BP 154/82; PULSE 78; RESP 16; TEMP 37.1; O2SAT 93; BMI 49.1
--- NOTE | 2018-08-19 10:30 | CT_ITS ---
STUDY: CT ABDOMEN AND PELVIS WITH CONTRAST REASON FOR EXAM: Female, 53 years old. Fall one week ago on the right side, redness and erythema of the right hip RADIATION DOSAGE (If Supplied By Facility): CTDIvol = ( 21.96 ) mGy, DLP = ( 1808.04 ) mGycm TECHNIQUE: Transaxial images were obtained from the dome of the diaphragm to the symphysis pubis without oral contrast. 100 IV Isovue 250 was administered. Sagittal and coronal images were reconstructed. Individualized dose optimization techniques were used for this CT. COMPARISON: None. FINDINGS: The visualized lung bases are unremarkable. The visualized portions of the heart are within normal limits. There is decreased attenuation of the liver consistent with steatosis. Normal gallbladder and extrahepatic biliary system. Small water density lesion of the spleen measures 1.2 cm compatible with a simple developmental cyst, benign. Normal pancreas. Normal bilateral adrenal glands. Normal right kidney. Intermediate to slightly high density cortical cyst of the posterior left kidney measures 1 cm on image 64. No hydronephrosis Normal visualized stomach. Normal small intestine. Normal colon. There is non-visualization of the appendix. Normal abdominal aorta. Normal inferior vena cava. Normal retroperitoneum. Normal urinary bladder. Small focal area of induration of the right lateral subcutaneous fat on image 94 without focal fluid collection. Injection granulomata right posterior soft tissues noted. There are diffuse degenerative changes of the visualized lumbar spine and right more than left hips. CT/Abdomen/Pelvis W IV Cont ONLY IMPRESSION: 1. Small focal subcutaneous induration the right lateral abdominal wall may represent small contusion or cellulitis. No focal fluid collection. 2. 1 cm indeterminate right renal cyst. Renal ultrasound is recommended. 3. Hepatic steatosis. Electronically Signed: Julio Cesar Gonzalez MD at 12:00 EDT , Service support ,
[2018-08-19 10:55] LABS: Absolute Lymphocyte Count 3.83 X10^3/ul (0.83-4.51); Absolute Neutrophil Count 6.9 X10^3/uL (2.0-7.7); Basophil# 0.01 X10^3/uL; Basophil% 0.1 % (0-1); Eosinophil# 0.26 X10^3/uL; Eosinophils% 2.2 % (0-5); Hematocrit 45.7 % (37-47); Hemoglobin 15.2 g/dl (12.0-15.0); Lymphocyte # 3.83 X10^3/ul (4.0); Lymphocyte % 32.4 % (19-41); Mean Corp Hgb Conc 33.3 g/gl (32-36); Mean Corpuscular Hgb 28.8 pg (27.0-32.0); Mean Corpuscular Volume 86.6 fL (81-99); Mean Platelet Vol. 10.3 fl (6.2-12.0); Monocyte# 0.77 X10^3/uL; Monocyte% 6.5 % (0-10); Neutrophil # 6.93 X10^3/uL (2.7-7.7); Neutrophil % 58.6 % (47-70); POSITIVE COUNT NO; POSITIVE DIFFERENTIAL NO; POSITIVE MORPHOLOGY NO; Platelet Count 262 K/mm3 (150-450); RBC Distribution Width CV 14.9 % (11.6-14.6); RBC Distribution Width SD 47.3 fl (35.1-43.9); Red Blood Count 5.28 M/mm3 (4.2-5.4); White Blood Count 11.8 K/mm3 (4.4-11.0)
[2018-08-19 11:09] LABS: Anion Gap 5 (5-15); BUN 14 mg/dL (7-18); BUN/Creat Ratio 20.3 RATIO (10-20); Calcium,Total 9.6 mg/dL (8.5-10.1); Chloride 103 mmol/L (98-107); Creatinine, Serum 0.69 mg/dL (0.55-1.02); EST Glomerular Filtration Rate 95 mL/min (>60); Est Glom Filt Rate - Afr Amer 115 mL/min (>60); Estimated Creatinine Clearance 75.43 ml/min; Glucose 123 mg/dL (74-106); Potassium 4.1 mmol/L (3.5-5.1); Sodium Level 138 mmol/L (136-145)
--- NOTE | 2018-08-19 12:40 | ED.VISSUMM ---
- ER Visit Summary Date of Service: 08/19/18 Chief Complaint: Fall with abdominal wound History of Present Illness: The patient is a 53 F with a history of frequent falls secondary to neuropathy. She fell 1 week ago striking her right side. 4 days ago she noted a red painful area to the right lateral abdominal wall. It is been increasing each day. Physical Examination: Vital signs unremarkable. Patient sitting upright in bed no acute distress. Heart is regular rate and rhythm. Lung sounds are clear pedal and abdomen is soft. There is a 4 x 5 cm area of induration on the right lateral abdominal wall. I do not feel any fluctuance. This area is tender to palpation but no other tenderness throughout the abdomen. Test Results: CBC was a white count 11.8 and hemoglobin 15.2. Chemistry studies grossly unremarkable. CT abdomen pelvis with IV contrast shows small subcutaneous induration of the right lateral abdominal wall which may represent contusion or cellulitis. There is no focal fluid collection. Emergency Department Course and Treatment: Test results discussed with the patient. She will be given Bactrim and Keflex. She is to return for worsening symptoms. Treatment Plan: [] Disposition: Discharge Impression: Cellulitis abdominal wall This note was generated with [employer] dictation software. It may contain incorrect words, spelling, and punctuation that were not noted in review of the chart prior to signing ED Disposition - Plan for ED Patient: Disposition: Home or Assisted Living Instructions: ED Infec Skin Cellulitis Prescriptions: Cephalexin [Keflex] 500 mg PO Q6 #40 capsule Smz/Tmp Ds [Bactrim Ds] 1 tablet PO BID #20 tablet Referrals: Camilo Sloan DO [Primary Care Provider] - 3-5 Days if not improving
[2018-08-19] MEDS: Smz/Tmp Ds Tablet 1 TABLET PO (12:54)
[2018-08-19] MEDS: Cephalexin 250 MG Capsule 500 MG PO (12:54)
[2018-08-19 12:55] VITALS: BP 130/76; PULSE 75; RESP 16; O2SAT 92
== END 2018-08-19 12:56 | disposition home or self-care (01) ==
PROVIDERS: Emergency Provider Emergency Medicine; Family Provider Preventive Medicine Occupational Medicine; PCP Preventive Medicine Occupational Medicine
DX: L03.311 Cellulitis of abdominal wall (principal); R29.6 Repeated falls; I10 Essential (primary) hypertension; J96.10 Chronic respiratory failure, unspecified whether with hypoxia or hypercapnia; J44.9 Chronic obstructive pulmonary disease, unspecified; M79.7 Fibromyalgia; G62.9 Polyneuropathy, unspecified; M06.9 Rheumatoid arthritis, unspecified; Z86.718 Personal history of other venous thrombosis and embolism; Z79.01 Long term (current) use of anticoagulants; Z86.711 Personal history of pulmonary embolism; Z79.899 Other long term (current) drug therapy; Z86.73 Personal history of transient ischemic attack (TIA), and cerebral infarction without residual deficits; Z72.0 Tobacco use
CPT/HCPCS: 74177; 80048; 85025; 99285; Q9967; A4216

== ENCOUNTER → 2018-09-20 12:15 | Outpatient (CLI) | payer MEDICAID, SELFPAY ==
[2018-09-20 09:39] VITALS: BMI 49.1
== END ==
PROVIDERS: Family Provider Preventive Medicine Occupational Medicine; PCP Preventive Medicine Occupational Medicine; Referring Provider Obstetrics & Gynecology; Visit Provider Obstetrics & Gynecology
DX: J44.1 Chronic obstructive pulmonary disease with (acute) exacerbation (principal)
CPT/HCPCS: 87070; 87205

== ENCOUNTER 2019-01-02 22:13 | Emergency (ER) | payer MEDICAID, SELFPAY ==
[2018-09-20 09:39] VITALS: BMI 49.1
[2019-01-02 22:14] VITALS: PULSE 73; RESP 20; TEMP 36.6; O2SAT 96; BMI 50.0
[2019-01-02 22:17] VITALS: BP 92/72; RESP 20; O2SAT 99
--- NOTE | 2019-01-02 22:33 | RAD_ITS ---
STUDY: X-RAY - RIGHT KNEE REASON FOR EXAM: Female, 53 years old. Pain. TECHNIQUE: 4 view(s) of the knee. COMPARISON: None. FINDINGS: Normal visualized distal femur. Normal visualized proximal tibia and fibula. Normal proximal tibiofibular articulation. There is moderate to severe degenerative arthrosis of the medial femorotibial compartment with moderate joint space narrowing. There is mild degenerative arthrosis of the lateral femorotibial compartment. There is moderate degenerative arthrosis of the patellofemoral articulation. There is a soft tissue prominence in the suprapatellar region suggesting a small volume joint effusion. The soft tissue structures are unremarkable. RAD/Knee 4 or More Views IMPRESSION: Degenerative changes. Joint effusion. Electronically Signed: Isi Julio MD at 23:14 EDT Tel , Service support ,
--- NOTE | 2019-01-02 22:33 | RAD_ITS ---
STUDY: X-RAY - PELVIS AND RIGHT HIP REASON FOR EXAM: Female, 53 years old. Pain. TECHNIQUE: 3 views of the pelvis and hip. COMPARISON: None. FINDINGS: There is a non-specific bowel gas pattern. Normal visualized soft tissue structures. There are degenerative changes of the sacroiliac joints. Normal bilateral superior and inferior pubic rami. There are degenerative changes of the pubic symphysis with articular narrowing and sclerosis. Normal bilateral ischial tuberosities. There are extensive degenerative changes of the right hip. There are mild degenerative changes of the left hip. RAD/HIP, UNI W/ Pelvis 2-3 Views IMPRESSION: Degenerative changes most extensive within the right hip. Electronically Signed: Isi Julio MD at 23:15 EDT Tel , Service support ,
--- NOTE | 2019-01-02 22:50 | RAD_ITS ---
STUDY: X-RAY - RIGHT ANKLE REASON FOR EXAM: Female, 53 years old. Fall. TECHNIQUE: 3 view(s) of the ankle. COMPARISON: September 22, 2015 images of the tibia and fibula. FINDINGS: Stable visualized distal tibia and fibula. There are stable well corticated rounded bony densities caudal to the lateral and medial malleolus that may reflect underlying ossicles There are degenerative changes of the mid and hindfoot. There is a plantar calcaneal enthesophyte. The soft tissue structures are unremarkable. RAD/Ankle min 3 Views IMPRESSION: No acute osseous injury. Electronically Signed: Isi Julio MD at 23:08 EDT Tel , Service support ,
[2019-01-02] MEDS: oxyCODONE 5 MG Tablet 10 MG PO (23:34)
--- NOTE | 2019-01-02 23:42 | ED.DCSUM_ITS ---
- ER Visit Summary Date of Service: 01/02/19 Chief Complaint: Fall History of Present Illness: The patient is a 53 F who states that she is with her daughter and tripped on something fell onto her right hip. She notes pain in the right hip the knee and the ankle. States she has a history of arthritis. She is on Xarelto for blood clots. The patient states that this fall happened 7-1/2 hours prior to my examination. She states that she does not like to come to the hospital so she tried hard not to come. Physical Examination: Afebrile vital signs are stable Gen: Well-nourished well-developed morbid obesity Head: Normocephalic atraumatic Eyes: Perrl EOMI ENT: TMs clear no rhinorrhea moist mucous membranes Neck: Supple no lymphadenopathy no JVD nontender CVS: Regular rate rhythm no murmurs normal S1-S2 Respiratory: No distress clear to auscultation bilaterally chest nontender Abdomen: Soft nontender nondistended normal bowel sounds no masses Back: Nontender Extremity: Mild swelling over the lateral malleolus of the right ankle. Diffuse swelling of the right knee ligaments appear stable. Extensor mechanism intact. Negative logroll of the hip. Tenderness to palpation over the greater trochanter of the right hip. Skin: Normal color no rash Neuro: alert orientated ?3 CN II-XII intact normal strength sensation Psych: Normal affect normal mood Test Results: X-rays of the hip and pelvis the knee and the ankle that did not demonstrate acute fracture Emergency Department Course and Treatment: She received 10 mg of oxycodone. She will be discharged home with supportive care. Instructions for rest and ice. Follow-up 10 days if not improving Impression: 1. Right hip contusion This note was generated with [employer] software. It may contain incorrect words, spelling, and punctuation that were not noted in review of the chart prior to signing ED Disposition - Plan for ED Patient: Disposition: Home or Assisted Living Instructions: Hip Contusion Referrals: Camilo Sloan DO [Primary Care Provider] - 10-14 Days if not better
== END 2019-01-02 23:59 | disposition home or self-care (01) ==
PROVIDERS: Emergency Provider Emergency Medicine; Family Provider Preventive Medicine Occupational Medicine; PCP Preventive Medicine Occupational Medicine
DX: S70.01XA Contusion of right hip, initial encounter (principal); W18.09XA Striking against other object with subsequent fall, initial encounter; Y93.9 Activity, unspecified; M16.11 Unilateral primary osteoarthritis, right hip; M17.11 Unilateral primary osteoarthritis, right knee; M25.571 Pain in right ankle and joints of right foot; I50.9 Heart failure, unspecified; E66.9 Obesity, unspecified; Z68.43 Body mass index [BMI] 50.0-59.9, adult; Z79.01 Long term (current) use of anticoagulants; Z79.899 Other long term (current) drug therapy
CPT/HCPCS: 73502; 73564; 73610; 99284; A4216

== ENCOUNTER → 2019-02-15 09:45 | Outpatient (CLI) | payer MEDICAID, SELFPAY ==
[2019-01-23 07:46] VITALS: BMI 50.0
--- NOTE | 2019-02-15 09:47 | ECHOCS_ITS ---
Reason For Study: PHTN Procedure This was a 2D Doppler, Color Flow transthoracic echocardiogram. The study was technically limited. Contrast injection was performed. Exam performed in department. Left Ventricle Borderline enlarged left ventricle. Left ventricular systolic function is normal. The estimated ejection fraction is 55 %. No evidence for diastolic dysfunction. No regional wall motion abnormalities noted. Right Ventricle Normal RV size. Normal systolic function. Atria Borderline left atrial enlargement. Normal right atrium. No doppler evidence for ASD. Mitral Valve There is no mitral annular calcification. Normal mitral valve. Trivial mitral valve insufficiency. Tricuspid Valve Normal tricuspid valve. Trivial tricuspid valve insufficiency. Unable to estimate RV systolic pressure/pulmonary artery pressure due to technically difficult study. Aortic Valve Trisinus/trileaflet aortic valve. Normal aortic valve. Pulmonic Valve The pulmonic valve is not well visualized. Trivial pulmonic valve insufficiency. Great Vessels Normal sized aortic root. Pericardium/Pleural No pericardial effusion. Medication 22 gauge I.V. with prn adaptor inserted into right arm. Diluted definity 4.0ml given slow IV push to enhance endocardial definition. MMode/2D Measurements & Calculations LVIDd: 5.8 cm IVSd: 0.80 cm Ao root diam: 3.4 cm LVIDs: 4.3 cm LVPWd: 0.86 cm RVDd: 3.4 cm FS: 25.9 % LAV(MOD-bp): 54.4 ml EDV(MOD-sp4): 158.7 ml EDV(MOD-sp2): 97.7 ml LAV(MOD-bp) Indexed: 25.4 ml/m2 ESV(MOD-sp4): 79.8 ml EF(MOD-sp2): 47.3 % LAV(MOD-sp2): 55.2 ml EF(MOD-sp4): 49.7 % LAV(MOD-sp4): 46.8 ml SV(MOD-sp4): 78.9 ml SV(MOD-sp2): 46.2 ml LA A4 area: 17.9 cm2 LA dimension(2D): 4.0 cm RA A4 area: 13.0 cm2 Time Measurements MV dec time: 0.23 sec Doppler Measurements & Calculations MV E max geovani: 102.8 cm/sec Lat Peak E' Geovani: 9.9 cm/sec Med Peak E' Geovani: 7.6 cm/sec MV A max geovani: 96.3 cm/sec E/E' lat: 10.4 E/E' med: 13.6 MV E/A: 1.1 Ao V2 max: 131.7 cm/sec LV V1 max: 103.0 cm/sec Ao max P.9 mmHg LV V1 max P.3 mmHg Interpretation Summary The study was technically limited. Contrast injection was performed. Borderline enlarged left ventricle. Left ventricular systolic function is normal. The estimated ejection fraction is 55 %. Borderline left atrial enlargement. Trivial mitral valve insufficiency. Trivial tricuspid valve insufficiency. Trivial pulmonic valve insufficiency. Unable to estimate RV systolic pressure/pulmonary artery pressure due to technically difficult study. No evidence for diastolic dysfunction. Ordering Physician: Luke Mensah Referring Physician: PK VU Performed By: Brenda Talamantes RDCS, RVT
== END ==
PROVIDERS: Family Provider Preventive Medicine Occupational Medicine; PCP Preventive Medicine Occupational Medicine; Referring Provider Internal Medicine Critical Care Medicine; Visit Provider Internal Medicine Critical Care Medicine
DX: I25.9 Chronic ischemic heart disease, unspecified (principal); R06.02 Shortness of breath
CPT/HCPCS: 36415; 83880; 93306; Q9957; A4216; C8929

== ENCOUNTER → 2019-03-13 16:54 | Outpatient (CLI) | payer MEDICAID, SELFPAY ==
[2019-02-16 15:41] VITALS: BMI 48.4
== END ==
PROVIDERS: Family Provider Preventive Medicine Occupational Medicine; PCP Preventive Medicine Occupational Medicine; Referring Provider Podiatrist; Visit Provider Podiatrist
DX: L03.116 Cellulitis of left lower limb (principal)
CPT/HCPCS: 87070; 87075; 87077; 87186; 87205

== ENCOUNTER → 2020-09-24 10:39 | Outpatient (CLI) | payer MEDICAID, SELFPAY ==
[2019-06-05 08:03] VITALS: BMI 48.4
--- NOTE | 2020-09-24 14:03 | PFTCOMP ---
COMPLETE PULMONARY FUNCTION TEST INTERPRETATION Brief HPI: Patient is a 55 year old female, currently under the care of myself, who presents to [facility] for complete pulmonary function tests secondary to diagnosis of COPD. Respiratory therapist reports good effort and reproducible results. Interpretation: Forced expiration spirometry shows no large airways obstructive ventilatory defect with an FEV1 of 85% predicted. There is no significant bronchodilator response by strict ATS criteria. Spirograms are of good quality and plateau normally. The respiratory flow volume loop shows a normal pattern. Lung volumes by body plethysmography show a normal total lung capacity at 3.82 L, 84% predicted. All other lung volumes are within normal limits. Diffusion capacity by carbon monoxide is normal at 79% predicted. The airway resistance is normal. Compared to previous pulmonary function tests from 03/19/2016, there is been a significant improvement in DLCO by 19%. Impression: Relatively normal pulmonary function test with significant improvement compared to previous.
== END ==
PROVIDERS: PCP Preventive Medicine Occupational Medicine; Referring Provider Internal Medicine Critical Care Medicine; Visit Provider Internal Medicine Critical Care Medicine
DX: J44.9 Chronic obstructive pulmonary disease, unspecified (principal)
CPT/HCPCS: 94060; 94726; 94729

== ENCOUNTER → 2020-11-07 12:08 | Outpatient (CLI) | payer MEDICAID, SELFPAY ==
[2019-06-05 08:03] VITALS: BMI 48.4
[2020-11-07 12:51] VITALS: PULSE 79; PULSE 80; PULSE 88; PULSE 91; PULSE 93; PULSE 95; O2SAT 89; O2SAT 90; O2SAT 91; O2SAT 94
--- NOTE | 2020-11-07 15:16 | WT_ITS ---
PSN 6 Minute Walk Test 6 Minute Walk Test 6 Minute Walk Test: 6 Minute Walk Test PSN:6-Minute Walk Test Start: 11/07/20 12:50 Freq: Status: Active Protocol: RESP.6MINW Document 11/07/20 12:51 JORDIN (Rec: 11/07/20 12:53 JORDNI [id number]) 6 Minute Walk Test Date Performed 11/07/20 Time Performed 12:30 Height 5 ft 2 in Weight: 117.934 kg Weight in Pounds 260.[address]: Luke Mensah Assistive device used: Walker Pre-test Oxygen Delivery Method Room Air Pulse Ox (%) 91 Pulse Rate (60-100 beats/min) 79 Dyspnea Cali Scale (0-10) 0 Exertion Cali Scale (6-20) 6 1st minute Oxygen Delivery Method Room Air Pulse Ox (%) 89 Pulse Rate (60-100 beats/min) 80 2nd minute Oxygen Delivery Method Room Air Pulse Ox (%) 89 Pulse Rate (60-100 beats/min) 91 3rd minute Oxygen Delivery Method Room Air Pulse Ox (%) 90 Pulse Rate (60-100 beats/min) 93 4th minute Oxygen Delivery Method Room Air Pulse Ox (%) 90 Pulse Rate (60-100 beats/min) 95 5th minute Oxygen Delivery Method Room Air Pulse Ox (%) 91 Pulse Rate (60-100 beats/min) 91 Number of Rests Taken 1 6th minute Oxygen Delivery Method Room Air Pulse Ox (%) 91 Pulse Rate (60-100 beats/min) 88 Post-test Oxygen Delivery Method Room Air Pulse Ox (%) 94 Pulse Rate (60-100 beats/min) 80 Dyspnea Cali Scale (0-10) 2 Exertion Cali Scale (6-20) 14 Full Laps Walked 8 Partial Lap, Number of Tiles Walked 12 Total Distance Walked (ft) 484 Interpretation Interpretation: The patient was able to ambulate 484 feet over the course of 6 minutes on room air with the assistance of a post wheelchair in 1 break. The patient had a low er baseline saturation of 91% and dropped as low as 89% during ambulation. No significant tachycardia was noted. These findings are consistent with a respiratory limitation exercise tolerance. Recommendations Recommendations: No supplemental oxygen is indicated at this time. However, patient needs to be followed closely given the level of desaturation.
== END ==
PROVIDERS: PCP Preventive Medicine Occupational Medicine; Referring Provider Internal Medicine Critical Care Medicine; Visit Provider Internal Medicine Critical Care Medicine
DX: J44.9 Chronic obstructive pulmonary disease, unspecified (principal)
CPT/HCPCS: 94618

== ENCOUNTER → 2020-11-10 16:46 | Outpatient (CLI) | payer MEDICAID, SELFPAY ==
[2019-06-05 08:03] VITALS: BMI 48.4
== END ==
PROVIDERS: PCP Preventive Medicine Occupational Medicine; Visit Provider Nurse Practitioner Acute Care
DX: G47.33 Obstructive sleep apnea (adult) (pediatric) (principal)
CPT/HCPCS: 98960; G0463

== ENCOUNTER 2021-07-15 18:04 | Outpatient (CLI) | payer MEDICAID, SELFPAY | END 2021-07-15 23:59 | disposition home or self-care (01) | PROVIDERS: PCP Preventive Medicine Occupational Medicine; Referring Provider Podiatrist; Visit Provider Podiatrist | DX: L97.522 Non-pressure chronic ulcer of other part of left foot with fat layer exposed (principal) | CPT/HCPCS: 87070; 87075; 87077; 87186; 87205 ==

== ENCOUNTER → 2021-08-18 | Outpatient (CLI) | payer MEDICAID, SELFPAY ==
--- NOTE | 2021-08-18 09:19 | ART_ITS ---
Reason For Study: PVD Procedure A bilateral lower extremity continuous wave Doppler with analog waveform analysis,segmental pressures,and ankle brachial indexes without exercise. Left Segmental Pressures Left brachial= 168mmHg. Left posterior tibial artery = 184mmHg. Left dorsalis pedis artery = 181mmHg. Left digit = 106 mmHg. The left dorsalis pedis waveforms are triphasic. The left posterior tibial artery waveforms are triphasic. Right Segmental Pressures Right brachial= 168mmHg. Right posterior tibial artery = 178mmHg. Right dorsalis pedis artery = 164mmHg. Right digit = 89 mmHg. The right dorsalis pedis waveforms are triphasic. The right posterior tibial artery waveforms are triphasic. Indices The right ankle brachial index by the dorsalis pedis is .98. The right ankle brachial index by the posterior tibial artery is 1.06. The right digital-brachial index is .53. The left ankle brachial index by the dorsalis pedis is 1.08. The left ankle brachial index by the posterior tibial artery is 1.1. The left digital-brachial index is .63. VL/Lower Ext Art Exam w/o Exercis Interpretation Summary Triphasic Doppler waveforms are noted at ankle level bilaterally. Pulse-volume recordings are diminished at digital level on the right, but satisfactory at all other levels bilaterally. Resting ankle-brachial indices are normal bilaterally. Digital-brachial indices are mil dly diminished bilaterally. Arterial flow appears normal at ankle level bilaterally. There is evidence of m ild arterial occlusive disease at digital level bilaterally. Ordering Physician: Erasmo Rodrigez Performed By: Yimi Pickard RVT
== END | disposition home or self-care (01) ==
LOC: CVS 09:16
PROVIDERS: PCP Preventive Medicine Occupational Medicine; Visit Provider Podiatrist
DX: I73.9 Peripheral vascular disease, unspecified (principal)
CPT/HCPCS: 93923

== ENCOUNTER → 2021-11-10 | Outpatient (CLI) | payer MEDICAID, SELFPAY ==
[2021-11-10 11:30] LABS: Absolute Neutrophil Count 7.8 X10^3/uL (2.0-7.7); Basophil# 0.04 X10^3/uL; Basophil% 0.3 % (0-1); Eosinophil# 0.31 X10^3/uL; Eosinophils% 2.3 % (0-5); Hematocrit 43.5 % (37-47); Hemoglobin 14.2 g/dL (12.0-15.0); Lymphocyte % 33.1 % (19-41); Mean Corp Hgb Conc 32.6 g/dL (32-36); Mean Corpuscular Hgb 29.2 pg (27.0-32.0); Mean Corpuscular Volume 89.5 fL (81-99); Mean Platelet Vol. 10.1 fl (6.2-12.0); Monocyte# 0.89 X10^3/uL; Monocyte% 6.5 % (0-10); NRBC Flagged by Analyzer 0 % (0-5); Neutrophil # 7.82 X10^3/uL (2.7-7.7); Neutrophil % 57.6 % (47-70); Platelet Count 271 K/mm3 (150-450); RBC Distribution Width CV 15.6 % (11.6-14.6); RBC Distribution Width SD 50.5 fl (35.1-43.9); Red Blood Count 4.86 M/mm3 (4.2-5.4); White Blood Count 13.6 K/mm3 (4.4-11.0)
[2021-11-10 12:01] LABS: ALB/GLOB Ratio 0.8 RATIO (0.9-2.4); AST(SGOT) 29 U/L (15-37); Alanine Aminotransfer ALT/SGPT 50 U/L (13-56); Albumin, Serum 3.5 g/dL (3.2-5.0); Alkaline Phosphatase 88 U/L (45-117); Anion Gap 5 (5-15); BUN 26 mg/dL (7-18); BUN/Creat Ratio 20.8 RATIO (10-20); Calcium,Total 9.4 mg/dL (8.5-10.1); Chloride 101 mmol/L (98-107); Creatinine, Serum 1.25 mg/dL (0.55-1.02); EST Glomerular Filtration Rate 47 mL/min (>60); Est Glom Filt Rate - Afr Amer 57 mL/min (>60); Globulin 4.2 g/dL (2.2-4.2); Glucose 97 mg/dL (74-106); Potassium 4.1 mmol/L (3.5-5.1); Protein, Total 7.7 g/dL (6.4-8.2); Sodium Level 137 mmol/L (136-145)
[2021-11-10 20:04] LABS: M R Staph aureus DNA By PCR Negative (Negative); Probe Check PASS; Specimen Processing Control PASS; Staph aureus DNA By PCR POSITIVE (Negative)
== END | disposition home or self-care (01) ==
PROVIDERS: PCP Preventive Medicine Occupational Medicine; Visit Provider Podiatrist
DX: L97.529 Non-pressure chronic ulcer of other part of left foot with unspecified severity (principal); L03.116 Cellulitis of left lower limb
CPT/HCPCS: 36415; 80053; 85025; 87070; 87075; 87077; 87186; 87205; 87640

== ENCOUNTER → 2021-11-24 | Outpatient (CLI) | payer MEDICAID, SELFPAY ==
[2021-11-24 14:18] LABS: Absolute Lymphocyte Count 4.66 X10^3/uL (0.83-4.51); Absolute Neutrophil Count 7.6 X10^3/uL (2.0-7.7); Basophil# 0.04 X10^3/uL; Basophil% 0.3 % (0-1); Eosinophils% 2.3 % (0-5); Hematocrit 43.8 % (37-47); Hemoglobin 14.4 g/dL (12.0-15.0); Lymphocyte # 4.66 X10^3/ul (0.83-4.51); Lymphocyte % 35.1 % (19-41); Mean Corp Hgb Conc 32.9 g/dL (32-36); Mean Corpuscular Hgb 29.6 pg (27.0-32.0); Mean Corpuscular Volume 89.9 fL (81-99); Mean Platelet Vol. 10.3 fl (6.2-12.0); Monocyte# 0.67 X10^3/uL; Monocyte% 5.1 % (0-10); NRBC Flagged by Analyzer 0 % (0-5); Neutrophil # 7.56 X10^3/uL (2.7-7.7); Platelet Count 266 K/mm3 (150-450); RBC Distribution Width CV 15.4 % (11.6-14.6); RBC Distribution Width SD 50.4 fl (35.1-43.9); Red Blood Count 4.87 M/mm3 (4.2-5.4); White Blood Count 13.3 K/mm3 (4.4-11.0)
[2021-11-24 14:47] LABS: ALB/GLOB Ratio 0.8 RATIO (0.9-2.4); AST(SGOT) 24 U/L (15-37); Alanine Aminotransfer ALT/SGPT 47 U/L (13-56); Albumin, Serum 3.3 g/dL (3.2-5.0); Alkaline Phosphatase 95 U/L (45-117); Anion Gap 7 (5-15); BUN 19 mg/dL (7-18); BUN/Creat Ratio 22.8 RATIO (10-20); Calcium,Total 9.4 mg/dL (8.5-10.1); Chloride 101 mmol/L (98-107); Creatinine, Serum 0.83 mg/dL (0.55-1.02); EST Glomerular Filtration Rate 75 mL/min (>60); Est Glom Filt Rate - Afr Amer 91 mL/min (>60); Globulin 4.3 g/dL (2.2-4.2); Glucose 135 mg/dL (74-106); Potassium 3.9 mmol/L (3.5-5.1); Protein, Total 7.6 g/dL (6.4-8.2); Sodium Level 138 mmol/L (136-145)
== END | disposition home or self-care (01) ==
LOC: LAB 13:30
PROVIDERS: PCP Preventive Medicine Occupational Medicine; Referring Provider Podiatrist; Visit Provider Podiatrist
DX: L03.032 Cellulitis of left toe (principal)
CPT/HCPCS: 36415; 80053; 85025

== ENCOUNTER → 2021-12-29 | Outpatient (CLI) | payer MEDICAID, SELFPAY ==
--- NOTE | 2021-12-29 14:37 | CT_ITS ---
STUDY: LOW DOSE CT LUNG CANCER SCREENING REASON FOR EXAM: Female, 56 years old. current smoker and gt; 30 pack years. COPD/CHF RADIATION DOSAGE (If Supplied By Facility): CTDIvol = ( 4.02 ) mGy, DLP = ( 113.30 ) mGycm TECHNIQUE: No contrast was administered. Low dose technique was utilized (average mAS-38 and kVp 120). 1.25 mm axial source images with a slice interval of 1.25-mm were reconstructed in lung windows. 2.5 mm axial source images with a slice interval of 2.5-mm were reconstructed in lung windows. 5.0 mm axial source images with a slice interval of 5.0-mm were reconstructed in soft tissue windows. COMPARISON: 12/03/2014 Emphysema: No emphysema. No noncalcified nodule or mass. Endobronchial lesion: None Aorta: No aortic aneurysm. CORONARY ARTERIES: Coronary artery calcification is not seen. Heart: Moderate cardiomegaly. Pulmonary artery: Normal Mediastinal nodes: Normal Other chest and abdominal findings: Multiple healed left rib fractures. CT/Low Dose CT Lung Screening IMPRESSION: Lung-RADS category 1 - Continue annual screening with LDCT in 12 months. IMPORTANT NOTES FOR USE: ACR Lung-RADS Version 1.1 Assessment Categories Release Date: 2018 Category: Coded 0-4 bases on nodule(s) with highest degree of suspicion. Negative screen is defined as categories 1 and 2; a positive screen is defined as categories 3 and 4. Category 3 and 4A nodules that are unchanged on interval CT should be coded as category 2, and individuals returned to screening in 12 months. Category 4X: Category 3 or 4 nodules with additional imaging findings that increase the suspicion of lung cancer, such as spiculation, GGN that doubles in size in 1 year, enlarged lymph notes, etc. Category Modifiers: S (significant finding unrelated to lung cancer) Electronically Signed: Mitchell Milian MD at 17:51 EDT ,
== END | disposition home or self-care (01) ==
LOC: CT 14:26
PROVIDERS: PCP Preventive Medicine Occupational Medicine; Referring Provider Nurse Practitioner Acute Care; Visit Provider Nurse Practitioner Acute Care
DX: Z12.2 Encounter for screening for malignant neoplasm of respiratory organs (principal); F17.210 Nicotine dependence, cigarettes, uncomplicated
CPT/HCPCS: 71271

== ENCOUNTER → 2022-01-05 | Outpatient (CLI) | payer MEDICAID, SELFPAY ==
--- NOTE | 2022-01-05 08:59 | STEWCON_ITS ---
Reason For Study: Chest Pain Stress Results Protocol: Dobutamine Stress Echo With Definity Maximum Predicted HR: 165 bpm Target HR: 140 bpm % Maximum Predicted HR: 76 % Heart Stage Duration Rate BP Comment (mm:ss) (bpm) Baseline 73 161/75No Chest Pain; 5 ML Diluted Definity DSE 10 MCG 3:27 78 180/68No Chest Pain DSE 20 MCG 3:01 88 159/81No Chest Pain DSE 30 MCG 3:03 100 159/56No Chest Pain; Atropine 0.25 MG at 8:45 Min DSE 40 No Chest Pain; Atropine 0.5 MG at 10:05 Min; Atropine 0.25 MG at MCG 6:29 126 156/7712:14 Min Recovery 94 169/92No Chest Pain Stress Duration: 16:00 mm:ss Maximum Stress HR: 126 bpm Baseline Echocardiogram Findings Stress Echo Wall motion Data Resting WM Intermediate WM Stress WM Resting Wall Motion Wall Motion Int. Wall Motion Stress All segments Normal. All segments Hyperkinetic. All segments Hyperkinetic. Ejection Fraction 55 %. Ejection Fraction 65 %. Ejection Fraction 75 %. Stress Results Heart rate response: Technically inadequate (percent predicted maximal heart rate less than 85%)- Cardiac rhythm: No obvious cardiac dysrhythmias pretest, during pharmacologic infusion, or recovery Stopped secondary to: Reaching maximal protocol (dobutamine 40 mcg/atropine 1 mg). EKG Data Baseline ECG: Sinus rhythm. Peak pharmacologic ECG: No obvious ECG changes. Symptoms with Stress No complaint of chest discomfort during pharmacologic infusion or recovery. ECHO/Stress Test Echo W/Contrast Interpretation Summary Contrast injection performed Negative (technically inadequate-percent predicted maximal heart rate less than 85%) dobutamine stress echocardiogram Ordering Physician: Ranjit Valle Referring Physician: Trevor Munson Performed By: Samina Mccallum, RDCS, RVT
== END | disposition home or self-care (01) ==
LOC: CVS 08:58
PROVIDERS: PCP Preventive Medicine Occupational Medicine; Referring Provider Nurse Practitioner Family; Visit Provider Nurse Practitioner Family
DX: R07.9 Chest pain, unspecified (principal); I25.9 Chronic ischemic heart disease, unspecified
CPT/HCPCS: 93350; 93017; J7040; Q9957; A4216; C8928

== ENCOUNTER → 2022-02-19 | Outpatient (CLI) | payer MEDICAID, SELFPAY ==
--- NOTE | 2022-02-19 08:02 | AAVD_ITS ---
Reason For Study: HX of Blood Clots Aorta Measurements Aorta Doppler Measurements Proximal aorta measures2.67 x 2.67cm. in cross- Peak systolic flow velocities within the proximal sectional axis. aorta measure 108.8 cm/sec. Proximal aorta measures2.62cm. in longitudinal Peak systolic flow velocities within the mid aorta axis. measure 88.8 cm/sec. Mid aorta measures2.14 x 2.18cm. in cross- Peak systolic flow velocities within the distal sectional axis. aorta measure 110.7 cm/sec. Mid aorta measures2.15cm. in longitudinal axis. Distal aorta measures1.23 x 1.28cm. in cross- sectional axis. Distal aorta measures1.24cm. in longitudinal axis. Left Iliac Artery Left iliac artery measures 0.87 x 0.98 cm. in the cross-sectional axis. Left iliac artery measures 0.96 cm. in the longitudinal axis. Peak systolic velocity in the left iliac artery measures 92.4 cm/sec. Right Iliac Artery Right iliac artery measures 0.86 x 0.94 cm. in the cross-sectional axis. Right iliac artery measures 0.98 cm. in the longitudinal axis. Peak systolic velocity in the right iliac artery measures 85.1 cm/sec. Procedure Aorta IVC Iliac vasculature or bypass grafts 54310. The exam was diagnostic. Technically difficult study due to body habitus and bowel gas. Exam performed in department. VL/Abd Aortic/IVC Duplex scan Interpretation Summary No evidence aortoiliac stenosis or aneurysm seen. Ordering Physician: Clifton Martell Referring Physician: Camilo Sloan Performed By: Roman Carr RVT
--- NOTE | 2022-02-19 08:02 | ART_ITS ---
Reason For Study: HX of Blood Clots Procedure A bilateral lower extremity continuous wave Doppler with analog waveform analysis and ankle brachial indexes. Left Segmental Pressures Left brachial= 138mmHg. Left posterior tibial artery = 187mmHg. Left dorsalis pedis artery = 206mmHg. Left digit = 125 mmHg. The left posterior tibial artery waveforms are biphasic. The left dorsalis pedis waveforms are biphasic. Right Segmental Pressures Right brachial= 138mmHg. Right posterior tibial artery = 166mmHg. Right dorsalis pedis artery = 153mmHg. Right digit = 128 mmHg. The right posterior tibial artery waveforms are triphasic. The right dorsalis pedis waveforms are triphasic. Indices The right ankle brachial index by the posterior tibial artery is 1.20. The right ankle brachial index by the dorsalis pedis is 1.11. The right digital-brachial index is 0.93. The left ankle brachial index by the posterior tibial artery is 1.36. The left ankle brachial index by the dorsalis pedis is 1.49. The left digital-brachial index is 0.91. VL/Ankle Brachial Index Interpretation Summary Right leg with triphasic flow and DERICK 1.2. Left leg with biphasic flow and DEIRCK 1.49 whcih may be falsely elevated. Normal DBI. Ordering Physician: Clifton Martell Referring Physician: MD Camilo Sloan Performed By: Roman Carr RVT
--- NOTE | 2022-02-19 08:02 | ADUL_ITS ---
Reason For Study: HX of Blood Clots Right Velocities Ext. Iliac Artery, dist = 89.8 cm./sec. Common Femoral Artery, dist = 132.8 cm./sec. Supf Femoral Artery, prox = 185.1 cm./sec. Supf Femoral Artery, mid = 126.9 cm./sec. Supf Femoral Artery, dist. = 120.4 cm./sec. Profunda Femoral Artery = 77.7 cm./sec. Popliteal Artery, mid = 88.1 cm./sec. Post. Tibial Artery, prox = 37.1 cm./sec. Post. Tibial Artery, mid = 87.5 cm./sec. Post. Tibial Artery, dist = 72.8 cm./sec. Peroneal Artery, prox = 39.6 cm./sec. Peroneal Artery, mid = 53.1 cm./sec. Peroneal Artery,dist = 50.7 cm./sec. Ant. Tibial Artery, prox = 34.3 cm./sec. Ant. Tibial Artery, mid = 77.7 cm./sec. Ant. Tibial Artery, dist = 65.4 cm./sec. Procedure The exam was diagnostic. Exam performed in department. /US Art Duplex Unilat Lower Ext Interpretation Summary Right leg no stenosis seen and triphasic flow throughout. Ordering Physician: Clifton Martell Referring Physician: MD Camilo Sloan Performed By: Roman Carr RVT
== END | disposition home or self-care (01) ==
LOC: CVS 07:59
PROVIDERS: PCP Preventive Medicine Occupational Medicine; Visit Provider Surgery Vascular Surgery
DX: I73.9 Peripheral vascular disease, unspecified (principal); I77.1 Stricture of artery; I70.0 Atherosclerosis of aorta; Z86.718 Personal history of other venous thrombosis and embolism; Z86.73 Personal history of transient ischemic attack (TIA), and cerebral infarction without residual deficits
CPT/HCPCS: 93922; 93926; 93978

== ENCOUNTER → 2022-04-07 | Outpatient (CLI) | payer MEDICAID, SELFPAY ==
--- NOTE | 2022-04-07 10:05 | VDLE_ITS ---
Reason For Study: Hx of blood clots LEFT GSV is normal. CFV is compressible, spontaneous, phasic, competent, and demonstrates normal augmentation. FV is compressible, spontaneous, phasic, competent and demonstrates normal augmentation. POP V is compressible, spontaneous, phasic, competent and demonstrates normal augmentation. T/P Trunk is compressible. PTV is compressible. LT PerV is compressible. VL/Venous Duplex US, Unilateral Interpretation Summary Left leg with no dvt visualized. Ordering Physician: Clifton Martell Referring Physician: Camilo Sloan Performed By: Samina Mccallum, NIRMAL, RVT
== END | disposition home or self-care (01) ==
LOC: CVS 10:03
PROVIDERS: PCP Preventive Medicine Occupational Medicine; Visit Provider Surgery Vascular Surgery
DX: E11.51 Type 2 diabetes mellitus with diabetic peripheral angiopathy without gangrene (principal); I73.9 Peripheral vascular disease, unspecified; I10 Essential (primary) hypertension; E78.5 Hyperlipidemia, unspecified; Z86.718 Personal history of other venous thrombosis and embolism; Z86.73 Personal history of transient ischemic attack (TIA), and cerebral infarction without residual deficits
CPT/HCPCS: 93971

== ENCOUNTER 2022-04-28 06:20 | Day surgery (SDC) | payer MEDICAID, SELFPAY ==
[2022-04-27 08:28] VITALS: BMI 47.5
[2022-04-28 06:39] LABS: Hematocrit 47.7 % (37-47); Hemoglobin 15.1 g/dL (12.0-15.0); Mean Corp Hgb Conc 31.7 g/dL (32-36); Mean Corpuscular Hgb 28.4 pg (27.0-32.0); Mean Corpuscular Volume 89.8 fL (81-99); Mean Platelet Vol. 9.9 fl (6.2-12.0); Platelet Count 261 K/mm3 (150-450); RBC Distribution Width CV 16.9 % (11.6-14.6); Red Blood Count 5.31 M/mm3 (4.2-5.4); White Blood Count 12.1 K/mm3 (4.4-11.0)
[2022-04-28 06:51] LABS: Anion Gap 6 (5-15); BUN 18 mg/dL (7-18); Calcium,Total 9.5 mg/dL (8.5-10.1); Chloride 105 mmol/L (98-107); EST Glomerular Filtration Rate 69 mL/min (>60); Est Glom Filt Rate - Afr Amer 84 mL/min (>60); Estimated Creatinine Clearance 55.86 ml/min; Glucose 108 mg/dL (74-106); Potassium 4.2 mmol/L (3.5-5.1); Sodium Level 140 mmol/L (136-145)
--- NOTE | 2022-04-28 08:43 | PCM.OPRPT ---
Problems Associated Problem List Diagnoses (1) PAD (peripheral artery disease): Report of Operation Date of Procedure: 04/28/22 Pre-Operative Diagnosis: PAD with healing wound left leg Post-Operative Diagnosis: The same Surgery/Procedure Performed:: 1. Ultrasound-guided access retrograde right common femoral artery. 2. Aortogram with bilateral iliac angiogram and left lower extremity angiogram with catheter placed into the third order popliteal artery. 3. Closure with Mynx Surgeon: Clifton Martell Type of Anesthesia: IV Sedation Description of Procedure: Patient brought to the Assistant Office Manager. Underwent appropriate timeout consent. Underwent sedation. Underwent preventive medications for possible heparin allergy. Patient was prepped and draped in a sterile fashion. We did ultrasound-guided access retrograde right common femoral artery. Put a Glidewire and then a 5 Malawian sheath. Get 5000 units heparin. We got up and over the bifurcation did an angiogram from the iliac artery. This showed the common femoral artery, the profunda and the femoral widely patent. But the catheter down the femoral and it showed the rest of the femoral through the popliteal was widely patent. We then advanced the distal popliteal and imaged from there and the anterior tibial artery, posterior tibial artery were widely patent to the foot. Peroneal was patent but a little bit smaller. We imaged lateral to the foot the dorsalis pedis appeared to be diminutive but had flow filling into the arch and the plantars were also patent. Of note the vessels into the foot appeared to be smaller. And also there is very slow flow feeling down the vessels. There is very prolonged tracking the flow into their. We then pulled the catheter back did an angio of each iliac and the aorta. This showed the aorta and bilateral iliacs were widely patent to the groin. We then removed the catheter deployed a minx with good hemostasis. She is then brought to recovery stable condition. This 56-year-old female underwent moderate sedation given by Dr. Clifton Martell. She was monitored EKG blood pressure and pulse ox for over the 30 minutes of the procedure. See the EMR for the complete record.
== END 2022-04-28 13:00 | disposition home or self-care (01) ==
LOC: CLSP 06:23
PROVIDERS: PCP Preventive Medicine Occupational Medicine; Referring Provider Surgery Vascular Surgery; Visit Provider Surgery Vascular Surgery
DX: I70.212 Atherosclerosis of native arteries of extremities with intermittent claudication, left leg (principal); E11.51 Type 2 diabetes mellitus with diabetic peripheral angiopathy without gangrene; J44.9 Chronic obstructive pulmonary disease, unspecified; I10 Essential (primary) hypertension; E78.00 Pure hypercholesterolemia, unspecified; E78.5 Hyperlipidemia, unspecified; F41.9 Anxiety disorder, unspecified; F32.9 Major depressive disorder, single episode, unspecified; F17.210 Nicotine dependence, cigarettes, uncomplicated; Z79.899 Other long term (current) drug therapy; Z79.01 Long term (current) use of anticoagulants; Z79.84 Long term (current) use of oral hypoglycemic drugs; Z86.73 Personal history of transient ischemic attack (TIA), and cerebral infarction without residual deficits; Z86.718 Personal history of other venous thrombosis and embolism
CPT/HCPCS: 36200; 36245; 36415; 75625; 75710; 76937; 80048; 85027; 93005; 99152; 99153; C1760; J7040; Q9967; C1769; C1887; J3490

== ENCOUNTER → 2022-05-21 | Outpatient (CLI) | payer MEDICAID, SELFPAY ==
[2022-05-21 15:13] LABS: Absolute Lymphocyte Count 4.99 X10^3/uL (0.83-4.51); Basophil# 0.04 X10^3/uL; Basophil% 0.4 % (0-1); Eosinophil# 0.27 X10^3/uL; Eosinophils% 2.5 % (0-5); Hematocrit 45.7 % (37-47); Hemoglobin 14.7 g/dL (12.0-15.0); Lymphocyte # 4.99 X10^3/ul (0.83-4.51); Mean Corp Hgb Conc 32.2 g/dL (32-36); Mean Corpuscular Volume 90.1 fL (81-99); Mean Platelet Vol. 10.6 fl (6.2-12.0); Monocyte# 0.56 X10^3/uL; Monocyte% 5.2 % (0-10); NRBC Flagged by Analyzer 0 % (0-5); Neutrophil # 4.97 X10^3/uL (2.7-7.7); Neutrophil % 45.7 % (47-70); Platelet Count 260 K/mm3 (150-450); RBC Distribution Width CV 15.9 % (11.6-14.6); RBC Distribution Width SD 52.1 fl (35.1-43.9); Red Blood Count 5.07 M/mm3 (4.2-5.4); White Blood Count 10.9 K/mm3 (4.4-11.0)
[2022-05-21 15:56] LABS: AST(SGOT) 35 U/L (15-37); Alanine Aminotransfer ALT/SGPT 57 U/L (13-56); Albumin, Serum 3.8 g/dL (3.2-5.0); Alkaline Phosphatase 82 U/L (45-117); Anion Gap 10 (5-15); BUN 27 mg/dL (7-18); BUN/Creat Ratio 27.4 RATIO (10-20); Calcium,Total 9.4 mg/dL (8.5-10.1); Chloride 101 mmol/L (98-107); Creatinine, Serum 0.99 mg/dL (0.55-1.02); EST Glomerular Filtration Rate 62 mL/min (>60); Est Glom Filt Rate - Afr Amer 75 mL/min (>60); Glucose 124 mg/dL (74-106); Protein, Total 7.8 g/dL (6.4-8.2); Sodium Level 137 mmol/L (136-145)
== END | disposition home or self-care (01) ==
LOC: MTLAB 12:45
PROVIDERS: PCP Preventive Medicine Occupational Medicine; Referring Provider Family Medicine; Visit Provider Family Medicine
DX: Z01.812 Encounter for preprocedural laboratory examination (principal)
CPT/HCPCS: 36415; 80053; 85025

== ENCOUNTER 2022-06-04 08:47 | Observation (INO) | payer MEDICAID, SELFPAY ==
[2022-06-04] VITALS (12 sets, daily range): BP systolic 112–140; BP diastolic 52–81; PULSE 56–68; RESP 16–20; TEMP 36.2–36.8; O2SAT 20–98; BMI 47.9
[2022-06-04] MEDS: Lactated Ringers 1,000 ML 15 ML IV (06:34)
[2022-06-04 07:10] LABS: Bedside Glucose 161 mg/dL (74-106)
--- NOTE | 2022-06-04 07:24 | RAD_ITS ---
STUDY: X-RAY - LEFT FOOT CLINICAL: Female, 56 years old. Intraoperative digital documentation views of first toe fusion. TECHNIQUE: 2 intraoperative digital documentation view(s) of the foot. COMPARISON: None. FINDINGS: Images acquired and saved saved 2. Total exposure time 2 seconds. The longest exposure time 1 second. Total DAP 0.1376 cGycm2. Total Air Kerma 0.0082 mGy. RAD/Foot 2 Views IMPRESSION: Intraoperative digital documentation. It is as described. Electronically Signed: Cabrera Saul, at 11:51 EST ,
--- NOTE | 2022-06-04 07:30 | AMP_PTH ---
PATIENT: SARIKA URRUTIA LOC: MS3 U#:[id number] AGE/SX: 56/F ROOM: SD311 RE06/04/[address]: Dr. Deepak Kulkarni DPM : 1965 BED: 1 DIS: 06/08/2022 SPEC #: [id number] RECD: 06/04/22 10:57 STATUS: RANI SHAR #: [id number] KAREN: 06/04/22 07:[address]: Deepak Kulkarni DEPT: SURGICAL PATHOLOGY RECD BY: Stacy Balbuena ENTERED: 06/04/22 11:45 SP TYPE: Amputation OTHR DR: Dr. Camilo Sloan DO Tissues: Toe, NOS Procedures: Decalcification bone/plaque Surgery Specimen Level IV HEADER OPERATION: Sam arthroplasty of first metatarsophalangeal joint PRE-OP DIAGNOSIS: Ulceration of left first toe, hallux rigidus TISSUE SUBMITTED: Bone left first toe MICROSCOPIC DIAGNOSIS Bone of left first toe, excision: Reparative and reactive change. Focal osteonecrosis. No evidence of osteomyelitis. AM:irene 06/09/2022 MICROSCOPIC DESCRIPTION Slides are reviewed. GROSS DESCRIPTION Received in fixative is one container labeled with the patient's name and designated bone left first toe. The specimen consists of multiple irregular fragments of bone that in aggregate measure 2.5 x 2.5 x 0.4 cm. The specimen is totally submitted in two cassettes after decalcification. / SIRIA:irene 06/04/2022 TC:5 CPT: 07931, 43248
[2022-06-04] MEDS: Bupivacaine 0.5% PF 10 ML VIAL (07:35)
--- NOTE | 2022-06-04 08:45 | PCM.OPRPT ---
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 Due to this we discussed further options as she has tried extensive nonsurgical care but ulcer continues to recur. We discussed Sam arthropathy. Reviewed the procedures, possible benefits vs risks, goals, expectations, and estimated healing time. She expressed understanding and agreement. No guarantees were given nor implied. No warranties were given.? She was advised the risks include but not limited to pain, recurrence, need for further surgery, blood clots, numbness, swelling, infection, scar tissue, weakness, deformity, loss of limb, and loss of life. She expressed understanding and agreement, and was able to repeat back. Patient freely signed the consent forms and elected to proceed forward with the procedure. No guarantees were given nor implied. No warranties were given. Operative procedure: She was brought back into the operating room and was placed on the operating room table in the supine position. A timeout was performed and the patient was properly identified and the surgical plan was confirmed. The patient did receive 3 g of IV Ancef for antibiotic prophylaxis. The patient received MAC anesthesia per the anesthesia team. A well padded pneumatic tourniquet was applied around the right ankle. A total of 10mL of 0.5% Bupivacaine plain was given as a local nerve block around the right 1st ray on the right foot after the overlying skin was cleansed with 70% Isopropyl alcohol. The right foot was scrubbed, prepped and draped in the usual aseptic fashion. Further attention was directed to the right foot. There was noted to be limited ROM of the 1st metatarsal phalangeal joint. The ulcer is currently healed. The right foot was exsanguinated using elevation and the left ankle pneumatic tourniquet was inflated to 250mmHg. Right 1st metatarsal phalangeal joint hallux valgus Sam arthroplasty: A linear longitudinal skin incision was made overlying the dorsal medial aspect of the 1st metatarsal phalangeal joint, located medial to the extensor hallucis longus tendon. The incision was carefully deepened to the dorsal 1st metatarsal phalangeal joint capsule, which was incised and partially reflected exposing the 1st metatarsal head as well as the base of the hallux proximal phalanx. The 1st MTPJ was visualized and there was some diffuse degenerative changes present. The base of the hallux proximal phalanx was excised but the distal insertion point of? the flexor digitorum brevis was left intact.? The resected bone was sent to pathology for further evaluation. After this was completed the toe was now in good alignment. The site was stabilized with a Beka pin through the 1st toe into the 1st metatarsal with the 1st toe in rectus position and out to normal length. The site was flushed out with copious amounts of normal saline solution. The capsule was reapproximated using 3-0 Vicryl, the subcutaneous tissue was reapproximated using 3-0 Vicryl, and the skin was reapproximated using 3-0 Nylon. The pneumatic tourniquet was deflated at 39 minutes, and there was immediate return of warmth and perfusion to the foot and to all toes on the foot with normal temperature gradient and CFT < 2 seconds to all toes. Hemostasis was achieved with no significant bleeding noted.? Also of note all vital structures including all vital neurovascular and soft tissue structures were properly identified, retracted, and protected as necessary during the procedures. Also of noted intra operative fluoroscopy was used as needed to confirm the above procedures. At the end, a dressing was applied which consisted of Betadine soaked adaptic, 4x4 gauze, Kerlix, and vern bandage was applied being sure to apply it not too tight. ? The patient tolerated the above operative procedure well at the anesthesia well with no complication. The patient was transported to the recovery room with vital signs stable and in good condition. Post operative orders were placed. Post operative instructions were reviewed. The patient will be admitted for observation and nursing facility placement. Grafts/Implants Used: 1 Steinmann pin Complications None
--- NOTE | 2022-06-04 09:20 | RAD_ITS ---
STUDY: X-RAY - LEFT FOOT CLINICAL: Female, 56 years old. Post op. Status post Sam arthroplasty. TECHNIQUE: 2 view(s) of the foot. COMPARISON: None. FINDINGS: The patient is status post resection of the proximal portion of the proximal pharynx of the great toe. A metallic pin has been placed through the proximal and distal phalanx and distal portion of the first metatarsal. Postoperative soft tissue changes. RAD/Foot min 3 Views IMPRESSION: Status post resection of the base of the proximal phalanx of the first toe with fixation at the metatarsal phalangeal joint. Electronically Signed: Fredrick Leal MD at 13:26 EST ,
[2022-06-04 09:26] LABS: Bedside Glucose 152 mg/dL (74-106)
--- NOTE | 2022-06-04 09:46 | HP.PCM_ITS ---
[facility] - General General Date of Admission: 06/04/22 Chief Complaint: s/p right foot surgery for recurrent diabetic foot ulcer [facility] Narrative SARIKA URRUTIA, is a 56 F who presents after surgery due to chronic recurrent right foot ulcer 1st toe. She underwent Sam arthropathy without complication. She has history of many medical problems, including diabetes and blood clots and was admitted for observation and nursing facility placement. [facility] Medical History (Updated 06/04/22 @ 09:[address] Deepak Kulkarni, LYUDMILA) Anemia Anxiety Anxiety disorder Arthritis Asthma Back pain Bronchitis Cardiology follow-up encounter Chronic back pain Chronic cough Chronic hypoxemic respiratory failure Chronic sinusitis COPD exacerbation COPD, frequent exacerbations Costal chondritis CPAP (continuous positive airway pressure) dependence Depression Diabetes DVT (deep venous thrombosis) Emphysema, unspecified Essential hypertension Excessive bleeding Fibromyalgia Gastric reflux GERD (gastroesophageal reflux disease) Healthcare-associated pneumonia History of CHF (congestive heart failure) History of DVT of lower extremity History of echocardiogram History of edema History of pulmonary embolus (PE) History of steroid therapy Insulin dependent diabetes mellitus Itching Leg cramps Livedo reticularis Morbid (severe) obesity due to excess calories Nicotine dependence, uncomplicated Normal stress echocardiogram Obstructive sleep apnea On home oxygen therapy Open wound Osteoarthritis of right hip Otitis media Patient's noncompliance with other medical treatment and regimen Personal history of thromboembolic disease Post-menopausal Pulmonary embolism Rheumatoid arthritis Shortness of breath Sleep apnea Smoker TIA (transient ischemic attack) Tobacco dependence syndrome Tubal Type 2 diabetes mellitus Wears glasses Home Medications alprazolam 0.5 mg tablet 0.5 mg PO BID PRN PRN Anxiety 12/15/13 [History Last Taken 06/04/22 05:00] atenolol 100 mg tablet 100 mg PO DAILY blood pressure 12/15/13 [History Last Taken 06/04/22 05:00] omeprazole 40 mg capsule,delayed release 40 mg PO DAILY GERD 12/15/13 [History Last Taken 06/03/22] ferrous sulfate 325 mg (65 mg iron) tablet 325 mg PO BID 03/17/14 [History Last Taken 06/03/22] pravastatin 40 mg tablet 40 mg PO QHS cholesterol 03/17/14 [History Last Taken 06/03/22] glimepiride 4 mg tablet 4 mg PO DAILY diabetes 04/23/15 [History Last Taken 06/03/22] docusate sodium 100 mg capsule 200 mg PO BID Constipation 03/10/17 [History Last Taken 06/03/22] pregabalin 300 mg capsule (Lyrica) 300 mg PO BID nerve pain 03/10/17 [History Last Taken 06/03/22] rivaroxaban 20 mg tablet 20 mg PO DAILY blood thinner 03/10/17 [History Last Taken 06/02/22 17:00] quetiapine 100 mg tablet 100 mg PO QHS sleep 12/12/17 [History Last Taken 06/03/22] trazodone 50 mg tablet 50 mg PO QHS sleep 12/13/17 [History Last Taken 06/03/22] montelukast 10 mg tablet 10 mg PO QPM #30 tabs 12/26/20 [Rx Last Taken 06/03/22] multivitamin (Daily Multi-Vitamin tablet) 1 tab PO DAILY 12/26/20 [History Last Taken 06/03/22] bupropion HCl 150 mg tablet,12 hr sustained-release 150 mg PO BID 11/27/21 [History Last Taken 06/03/22] dapagliflozin 5 mg tablet (Farxiga) 5 mg PO DAILY 11/27/21 [History Last Taken 06/03/22] diclofenac sodium 75 mg tablet,delayed release 75 mg PO BID 11/27/21 [History Last Taken 06/03/22] insulin glargine 100 unit/mL (3 mL) subcutaneous pen (Lantus Solostar U-100 Insulin) 60 unit subcut BID 11/27/21 [History Last Taken 06/03/22 06:00] omega-3 acid ethyl esters 1 gram capsule 2 cap PO BID 11/27/21 [History Last Taken 06/03/22] venlafaxine 150 mg capsule,extended release 24 hr 300 mg PO QHS 11/27/21 [History Last Taken Unknown] furosemide 40 mg tablet 40 mg PO DAILY #30 tabs 04/20/22 [Rx Last Taken 06/03/22] albuterol sulfate 2.5 mg/3 mL (0.083 %) solution for nebulization 2.5 mg (3 mL) inhalation Q6H PRN SHORTNESS OF BREATH #180 vials 04/29/22 [Rx Last Taken 06/04/22] albuterol sulfate 90 mcg/actuation aerosol inhaler 2 puff inhalation Q6H PRN shortness of breath or wheezing #18 grams 04/29/22 [Rx Last Taken 06/04/22] fluticasone 232 mcg-salmeterol 14 mcg/actuation breath activated powdr (AirDuo RespiClick) 1 inh inhalation BID #1 ea 04/29/22 [Rx Last Taken 06/03/22] guaifenesin 1,200 mg tablet, extended release 12 hr 1,200 mg PO Q12H #60 tabs 04/29/22 [Rx Last Taken 06/03/22] loratadine 10 mg tablet 10 mg PO DAILY #90 tabs 04/29/22 [Rx Last Taken 06/03/22] acetaminophen 650 mg tablet,extended release 1,300 mg PO Q8H 05/31/22 [History Last Taken Unknown] metformin 500 mg tablet,extended release 24 hr 1,000 mg PO BID 05/31/22 [History Last Taken 06/02/22] umeclidinium 62.5 mcg/actuation blister powder for inhalation (Incruse Ellipta) 1 inh inhalation DAILY 05/31/22 [History Last Taken Unknown] Allergy/AdvReac Type Severity Reaction Status Date / Time azithromycin Allergy Mild Hives Verified 06/04/22 06:30 enoxaparin sodium Allergy Mild Itching Verified 06/04/22 06:30 [From Lovenox] heparin Allergy Itching Verified 06/04/22 06:30 varenicline [From Chantix] AdvReac Intermediate MENTAL Verified 06/04/22 06:30 ISSUES Family History (Reviewed 04/29/22 @ 13:49 by Zeny Noel ADMISSIONS GATE ATTENDANT, ADMISSIONS GATE ATTENDANT-C) Other No pertinent family history Surgical History (Updated 05/31/22 @ 14:41 by Abbey Joyner) History of tubal ligation Hx of surgical procedure No pertinent past surgical history Social History (Reviewed 04/29/22 @ 13:49 by Zeny Noel ADMISSIONS GATE ATTENDANT, ADMISSIONS GATE ATTENDANT-C) Smoking Status: Current every day smoker tobacco type: cigarettes alcohol intake: never substance use type: does not use caffeine: Yes Type: coffee Number of servings: 5 Vital Signs Vital Signs Vital Signs: 06/04/22 06:36 06/04/22 06:36 06/04/22 08:57 Temperature 97.6 F L 97.2 F L Temperature Source Temporal Temporal Pulse Rate 68 62 Respiratory Rate 18 18 Respiratory Pattern Normal Normal Blood Pressure 134/66 H 140/70 H Blood Pressure Mean 88 93 Blood Pressure Source Monitor Monitor Blood Pressure Position Semi-Fowlers Semi-Fowlers Blood Pressure Location Left Arm Right Arm Baseline BP 134/66 Pulse Ox 93 95 Oxygen Delivery Method Room Air Nasal Cannula Oxygen Flow Rate (L/min) 2 06/04/22 08:55 06/04/22 09:00 06/04/22 09:05 Temperature Temperature Source Pulse Rate 59 L 60 60 Respiratory Rate 20 H 20 H 20 H Respiratory Pattern Blood Pressure 139/80 H 127/81 H 128/76 H Blood Pressure Mean 99 96 93 Blood Pressure Source Monitor Monitor Monitor Blood Pressure Position Semi-Fowlers Semi-Fowlers Semi-Fowlers Blood Pressure Location Right Arm Right Arm Right Arm Baseline BP 134/66 134/66 134/66 Pulse Ox 95 94 95 Oxygen Delivery Method Nasal Cannula Nasal Cannula Nasal Cannula Oxygen Flow Rate (L/min) 2 2 2 06/04/22 09:15 Temperature Temperature Source Pulse Rate 56 L Respiratory Rate 18 Respiratory Pattern Blood Pressure 134/77 H Blood Pressure Mean 96 Blood Pressure Source Monitor Blood Pressure Position Semi-Fowlers Blood Pressure Location Right Arm Baseline BP 134/66 Pulse Ox 20 Oxygen Delivery Method Nasal Cannula Oxygen Flow Rate (L/min) 2 Weight Weight: 118.841 kg Body Mass Index (BMI) 47.9 Physical Exam Narrative Dressing right foot is clean, dry and intact with no complications. Const alert, oriented x3 and no apparent distress Results Lab / Micro Data Labs: Laboratory Results - last 24 hr 06/04/22 06:17: POC Glucose 161 H 06/04/22 09:03: POC Glucose 152 H Assessment & Plan Assessment/Plan (1) Type 2 diabetes mellitus: (2) Hallux rigidus, right foot: (3) Non-pressure chronic ulcer of other part of right foot with fat layer exposed: (4) Diabetes mellitus with diabetic polyneuropathy: (5) Type 2 diabetes mellitus with foot ulcer: PLAN: Plan Patient is s/p right foot Sam arthroplasty on 06/04/22 without complication. She is being admitted for observation and nursing facility placement. Dressing right foot is clean, dry and intact. No weightbearing right foot. Keep right foot elevated. SCD left lower extremity. Patient is on Xarelto 20mg daily due to her history of blood clots - ok to resume today. Pain management: Acetaminophen and Oxyir. Antibiotic Propylaxis: Cefazolin 1g IV q 8 hours for 24 hours, then ok to d/c. Hospitalist medicine consulted for diabetes and other medical problems - appreciate assistance. Case management consulted for nursing facility placement.
[2022-06-04 12:45] LABS: Bedside Glucose 143 mg/dL (74-106)
--- NOTE | 2022-06-04 12:50 | CASEMGMT ---
Social Work SW met w/pt in room, reviewed prior level of function and anticipated discharge plan. PCP: Dr. Sloan Specialists: Dr. Mensah--pulmonology, Dr. Kulkarni--Podiatry, and [facility] Insurance: [facility] Plan Preferred pharmacy: [facility], and she gets meds prepackaged by [facility] LNOK: , daughter LW/POA: Has not completed, would like to complete while here as time allows Living arrangements/Prior level of function: Pt lives home in a one story house w/ and daughter. Pt is independent with most ADLs including all personal ADL's, cleaning, medication management(w/assist of prepackaging by [employer]). 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 DME: Pt has a wheelchair, cane, walker, shower chair. Pt does not use the walker however. She has home O2 she uses as needed, 2LPM, and CPAP. These are through [facility]. Pt also has a nebulizer. SNF/HHC: Pt has had home health, has never been to SNF. Plan: Pt plans to go to SNF, physician also recommending. Pt is non weight bearing on her left foot, and pt states it's difficult for her to maintain this. SW provided to pt a list via [facility] of detention facilities with quality and resource use data, in pt's insurance network and preferred geographic area. Pt would like to go to [facility], she will review for additional choices. SW explained we will send referral and if [facility] can take pt, they will go to insurance fo precert. SW will make referral for [facility], and continue to follow for SNF placement. SHASHI Stevens
--- NOTE | 2022-06-04 13:47 | PCM.PN.HOSP ---
Subjective Subjective Doing well after surgery. No issues Objective Data Objective Data Vital Signs: Vital Signs Temp Pulse Resp BP Pulse Ox O2 Del Method O2 Flow Rate 97.5 F L 60 18 116/67 98 Nasal Cannula 2 06/04/22 11:52 06/04/22 11:52 06/04/22 11:52 06/04/22 11:52 06/04/22 11:52 06/04/22 11:52 06/04/22 11:52 Oxygen Flow Rate (L/min) 2 Oxygen Delivery Method Nasal Cannula Weight: 262 lb Body Mass Index (BMI) 47.9 Intake & Output: Intake and Output for Last 24 Hours 06/03/22 06/04/22 06/05/22 03:59 03:59 03:59 Intake Total 206.75 / 206.75 Output Total 400 / 400 Balance -193.25 / -193.25 Lab / Micro Data Labs: Laboratory Results - last 24 hr 06/04/22 06:17: POC Glucose 161 H 06/04/22 09:03: POC Glucose 152 H 06/04/22 11:57: POC Glucose 143 H Radiography Diagnostic Testing: Radiology Impression Foot X-Ray 06/04/22 09:20 IMPRESSION: Status post resection of the base of the proximal phalanx of the first toe with fixation at the metatarsal phalangeal joint. Electronically Signed: Fredrick Leal MD at 13:26 EST , Physical Exam Narrative General: Alert, Oriented x3, Cooperative, No apparent distress, morbidly obese HEENT: Atraumatic, PERRLA, EOMI, Normocephalic Oral: Moist Mucosa Neck: Supple, No JVD Lungs: Diminished, Normal air movement, No rhonchi, No wheeze, No rales Cardiovascular: Regular rate, Regular Rhythm, Normal S1, Normal S2, No murmurs Abdomen: Soft, Non Tender, Non-Distended, No Hepato-splenomegaly Extremities: No edema, Capillary Refill Less than 3 Seconds Skin: Left lower extremity in dressing intact Musculoskeletal: No Tenderness to Palpation of Joints or Extremities Neurological: Cranial nerves II-XII grossly intact, Motor Exam 5/5 strength throughout, Sensory exam intact to light touch and pain Psych/Mental Status: Normal Affect, Appropriate Assessment & Plan Assessment/Plan (1) Type 2 diabetes mellitus with foot ulcer: PLAN: Plan 1. Status post Sam arthroplasty of her first great toe for diabetic foot ulcer/DM2 with neuropathy ? Continue nonweightbearing status ? Continue with Accu-Cheks ACHS as well as insulin ? We will make a as necessary ? We will hold her oral medication ? PT/OT with possible SNF placement ? Pain management per primary ? Continue with Lyrica 2. Hypertension, peripheral artery disease, hyperlipidemia, GERD, anxiety, depression, history of PEs and DVTs, COPD are chronic medical conditions we will monitor and make adjustments to her home medications as needed DVT: George Charges/Coding Visit Charges Office Visits / Consults: 80303 OV L3 Est
--- NOTE | 2022-06-04 14:32 | CASEMGMT ---
Addendum entered by Lola Malhotra 06/04/22 15:33: [facility] is able to accept. SW met with pt and updated and pt agreeable to admission to [facility]. Precert will need to be obtained and will be started once pt has been seen by therapy. SW spoke with pt regarding advance directives. Pt stating she is too tired at this time to complete. SW to followup as able. TIMOTHY Gomez Original Note: Social Work Referral sent to the [facility]. SW will await determination of acceptance. Pt will need precert prior to discharge. Plan: [facility], pending acceptance and precert TIMOTHY Gomez
[2022-06-04] MEDS: oxyCODONE 5 MG Tablet PO ×2 (14:58→21:46)
[2022-06-04] MEDS: Cefazolin 1 GM/50 ML BAG IV ×2 (15:07→21:45)
[2022-06-04] MEDS: Ferrous Sulfate 325 MG Tablet PO (16:56)
[2022-06-04] MEDS: Insulin Lispro 100 UNIT/ML INSULN.PEN SC (17:01)
[2022-06-04 17:25] LABS: Bedside Glucose 152 mg/dL (74-106)
[2022-06-04] MEDS: Ipratropium/Albuterol Sulfate 3 ML AMPUL.NEB INHALATION (19:24)
[2022-06-04] MEDS: Budesonide Respules 0.5 MG/2 ML AMPUL.NEB. INHALATION (19:24)
[2022-06-04] MEDS: Pravastatin 40 MG Tablet PO (21:45)
[2022-06-04] MEDS: Venlafaxine XR 150 MG Capsule 300 MG PO (21:45)
[2022-06-04] MEDS: buPROPion (SR) 150 MG Tablet.SA PO (21:45)
[2022-06-04] MEDS: Acetaminophen 325 MG Tablet 650 MG PO (21:46)
[2022-06-04] MEDS: traZODone 50 MG Tablet PO (21:46)
[2022-06-04] MEDS: Pregabalin 75 MG Capsule 300 MG PO (21:46)
[2022-06-04] MEDS: QUEtiapine 100 MG Tablet PO (21:46)
[2022-06-04] MEDS: Montelukast 10 MG Tablet PO (21:46)
[2022-06-04 22:35] LABS: Bedside Glucose 137 mg/dL (74-106)
[2022-06-05] VITALS (10 sets, daily range): BP systolic 112–145; BP diastolic 56–64; PULSE 60–78; RESP 16–20; TEMP 36.5–37; O2SAT 92–96
[2022-06-05] MEDS: Cefazolin 1 GM/50 ML BAG IV (04:51)
[2022-06-05] MEDS: oxyCODONE 5 MG Tablet PO ×3 (04:52→21:36)
[2022-06-05] MEDS: Acetaminophen 325 MG Tablet 650 MG PO ×3 (04:52→21:36)
[2022-06-05 05:45] LABS: Bedside Glucose 128 mg/dL (74-106)
[2022-06-05 07:15] LABS: Absolute Lymphocyte Count 3.43 X10^3/uL (0.83-4.51); Absolute Neutrophil Count 4.2 X10^3/uL (2.0-7.7); Basophil# 0.02 X10^3/uL; Basophil% 0.2 % (0-1); Eosinophil# 0.23 X10^3/uL; Eosinophils% 2.7 % (0-5); Hematocrit 41.3 % (37-47); Hemoglobin 13.4 g/dL (12.0-15.0); Lymphocyte # 3.43 X10^3/ul (0.83-4.51); Lymphocyte % 39.7 % (19-41); Mean Corp Hgb Conc 32.4 g/dL (32-36); Mean Corpuscular Hgb 29.5 pg (27.0-32.0); Mean Platelet Vol. 10.1 fl (6.2-12.0); Monocyte% 8.1 % (0-10); NRBC Flagged by Analyzer 0 % (0-5); Neutrophil # 4.23 X10^3/uL (2.7-7.7); Neutrophil % 49.1 % (47-70); Platelet Count 193 K/mm3 (150-450); RBC Distribution Width CV 15.7 % (11.6-14.6); RBC Distribution Width SD 51.5 fl (35.1-43.9); Red Blood Count 4.54 M/mm3 (4.2-5.4); White Blood Count 8.6 K/mm3 (4.4-11.0)
[2022-06-05] MEDS: Budesonide Respules 0.5 MG/2 ML AMPUL.NEB. INHALATION ×2 (07:25→20:21)
[2022-06-05] MEDS: Ipratropium/Albuterol Sulfate 3 ML AMPUL.NEB INHALATION ×3 (07:25→20:21)
[2022-06-05 07:53] LABS: AST(SGOT) 29 U/L (15-37); Alanine Aminotransfer ALT/SGPT 44 U/L (13-56); Albumin, Serum 3.3 g/dL (3.2-5.0); Alkaline Phosphatase 66 U/L (45-117); Anion Gap 9 (5-15); BUN 18 mg/dL (7-18); BUN/Creat Ratio 26.9 RATIO (10-20); Calcium,Total 9.2 mg/dL (8.5-10.1); Chloride 105 mmol/L (98-107); Creatinine, Serum 0.67 mg/dL (0.55-1.02); EST Glomerular Filtration Rate 97 mL/min (>60); Est Glom Filt Rate - Afr Amer 117 mL/min (>60); Estimated Creatinine Clearance 75.04 ml/min; Globulin 3.4 g/dL (2.2-4.2); Glucose 154 mg/dL (74-106); Potassium 4.4 mmol/L (3.5-5.1); Protein, Total 6.7 g/dL (6.4-8.2); Sodium Level 139 mmol/L (136-145)
[2022-06-05] MEDS: Pregabalin 75 MG Capsule 300 MG PO ×2 (08:31→21:40)
[2022-06-05] MEDS: Atenolol 100 MG Tablet PO (08:32)
[2022-06-05] MEDS: Pantoprazole Sodium 40 MG Tablet PO (08:32)
[2022-06-05] MEDS: buPROPion (SR) 150 MG Tablet.SA PO ×2 (08:32→21:38)
[2022-06-05] MEDS: Furosemide 40 MG Tablet PO (08:32)
[2022-06-05] MEDS: Ferrous Sulfate 325 MG Tablet PO ×2 (12:34→17:12)
[2022-06-05 13:21] LABS: Bedside Glucose 137 mg/dL (74-106)
--- NOTE | 2022-06-05 16:28 | CASEMGMT ---
Social Work Note SW sent therapy evaluations to [facility] via [facility]. Adrianna Downs USER EXPERIENCE MANAGER, JOSE LUIS
[2022-06-05] MEDS: Rivaroxaban 20 MG Tablet PO (17:12)
[2022-06-05 17:45] LABS: Bedside Glucose 140 mg/dL (74-106)
--- NOTE | 2022-06-05 19:02 | PN_ITS ---
Subjective Subjective Patient seen resting in bed with foot elevated. Does admit to a little bit of pain the day after procedure. States otherwise everything is going well. Voiding without difficulty. Denies any constitutional symptoms. Denies any further complaints. Objective Data Objective Data Vital Signs: Vital Signs Temp Pulse Resp BP Pulse Ox O2 Del Method O2 Flow Rate 98 F 64 18 136/62 H 92 Nasal Cannula 2 06/05/22 15:27 06/05/22 15:27 06/05/22 15:27 06/05/22 15:27 06/05/22 15:27 06/05/22 15:27 06/05/22 15:27 Oxygen Flow Rate (L/min) 2 Oxygen Delivery Method Nasal Cannula Weight: 118.841 kg Body Mass Index (BMI) 47.9 Intake & Output: Intake and Output for Last 24 Hours 06/03/22 06/04/22 06/05/22 23:59 23:59 23:59 Intake Total 1203.75 / 1203.75 650 / 650 Output Total 1400 / 1400 800 / 800 Balance -196.25 / -196.25 -150 / -150 Lab / Micro Data Result Diagrams: 06/05/22 06:46 06/05/22 06:46 Labs: Laboratory Results - last 24 hr 06/04/22 21:42: POC Glucose 137 H 06/05/22 04:55: POC Glucose 128 H 06/05/22 06:46: WBC 8.6, RBC 4.54, Hgb 13.4, Hct 41.3, MCV 91.0, MCH 29.5, MCHC 32.4, RDW Std Deviation 51.5 H, RDW Coeff of Luiz 15.7 H, Plt Count 193, MPV 10.1, Immature Gran % (Auto) 0.200, Neut % (Auto) 49.1, Lymph % (Auto) 39.7, [place] % (Auto) 8.1, Eos % (Auto) 2.7, Baso % (Auto) 0.2, Absolute Neuts (auto) 4.2, Absolute Lymphs (auto) 3.43, Nucleated RBC % 0 06/05/22 06:46: Sodium 139, Potassium 4.4, Chloride 105, Carbon Dioxide 25.0, Anion Gap 9, BUN 18, Creatinine 0.67, Estim Creat Clear Calc 75.04, Est GFR (MDRD) Af Amer 117, Est GFR (MDRD) Non-Af 97, BUN/Creatinine Ratio 26.9 H, Glucose 154 H, Calcium 9.2, Total Bilirubin 0.30, AST 29, ALT 44, Alkaline Phosphatase 66, Total Protein 6.7, Albumin 3.3, Globulin 3.4, Albumin/Globulin Ratio 1.0 06/05/22 12:18: POC Glucose 137 H 06/05/22 17:10: POC Glucose 140 H Radiography Diagnostic Testing: Radiology Impression Foot X-Ray 06/04/22 07:24 IMPRESSION: Intraoperative digital documentation. It is as described. Electronically Signed: Cabrera Saul, at 11:51 EST , Foot X-Ray 06/04/22 09:20 IMPRESSION: Status post resection of the base of the proximal phalanx of the first toe with fixation at the metatarsal phalangeal joint. Electronically Signed: Fredrick Leal MD at 13:26 EST , Physical Exam Narrative Dressing right foot is clean, dry and intact with no complications. Const alert, oriented x3 and no apparent distress Assessment & Plan Assessment/Plan (1) Diabetes mellitus with diabetic polyneuropathy: (2) Type 2 diabetes mellitus with foot ulcer: (3) Hallux rigidus, left foot: (4) Non-pressure chronic ulcer of other part of left foot with fat layer exposed: PLAN: Plan Patient seen and evaluated Patient is s/p left foot Sam arthroplasty on 06/04/22 without complication. POD #1. She is being admitted for observation and nursing facility placement. Dressing left foot is clean, dry and intact. Plan to change surgical dressing tomorrow. No weightbearing left foot. Keep left foot elevated. SCD left lower extremity. Patient is on Xarelto 20mg daily due to her history of blood clots. Pain management: Acetaminophen and Oxyir as needed Antibiotic Propylaxis: Cefazolin 1g IV q 8 hours for 24 hours, then ok to d/c. Patient has finished antibiotic. Hospitalist medicine consulted for diabetes and other medical problems - appreciate assistance. Case management consulted for nursing facility placement. Please do not hesitate to call for any questions or concerns Jr. Sandra Cordero.P.M. [facility] [phone]
[2022-06-05] MEDS: traZODone 50 MG Tablet PO (21:37)
[2022-06-05] MEDS: Pravastatin 40 MG Tablet PO (21:37)
[2022-06-05] MEDS: QUEtiapine 100 MG Tablet PO (21:37)
[2022-06-05] MEDS: Montelukast 10 MG Tablet PO (21:38)
[2022-06-05] MEDS: Venlafaxine XR 150 MG Capsule 300 MG PO (21:38)
[2022-06-05] MEDS: Insulin Lispro 100 UNIT/ML INSULN.PEN SC (21:45)
[2022-06-05 22:26] LABS: Bedside Glucose 163 mg/dL (74-106)
[2022-06-06] VITALS (11 sets, daily range): BP systolic 130–154; BP diastolic 53–69; PULSE 60–92; RESP 16–20; TEMP 36.6–36.8; O2SAT 91–98
[2022-06-06] MEDS: oxyCODONE 5 MG Tablet PO ×3 (06:32→19:36)
[2022-06-06] MEDS: Acetaminophen 325 MG Tablet 650 MG PO ×3 (06:32→19:35)
[2022-06-06] MEDS: Insulin Lispro 100 UNIT/ML INSULN.PEN SC ×3 (06:36→21:07)
[2022-06-06 07:06] LABS: Bedside Glucose 153 mg/dL (74-106)
[2022-06-06] MEDS: Budesonide Respules 0.5 MG/2 ML AMPUL.NEB. INHALATION ×2 (07:43→19:24)
[2022-06-06] MEDS: Ipratropium/Albuterol Sulfate 3 ML AMPUL.NEB INHALATION ×3 (07:43→19:23)
[2022-06-06] MEDS: Juven (unflavored) Packet 1 PACKET PO ×2 (08:39→18:33)
--- NOTE | 2022-06-06 09:38 | PCM.PN.HOSP ---
Subjective Subjective No issues overnight Objective Data Objective Data Vital Signs: Vital Signs Temp Pulse Resp BP Pulse Ox O2 Del Method O2 Flow Rate 98.2 F 78 16 154/66 H 93 Room Air 2 06/06/22 03:30 06/06/22 03:30 06/06/22 03:30 06/06/22 03:30 06/06/22 03:30 06/06/22 03:30 06/05/22 23:00 Oxygen Flow Rate (L/min) 2 Oxygen Delivery Method Room Air Weight: 262 lb Body Mass Index (BMI) 47.9 Intake & Output: Intake and Output for Last 24 Hours 06/05/22 06/06/22 06/07/22 03:59 03:59 03:59 Intake Total 1203.75 / 1203.75 650 / 650 Output Total 1400 / 1400 800 / 800 Balance -196.25 / -196.25 -150 / -150 Lab / Micro Data Result Diagrams: 06/05/22 06:46 06/05/22 06:46 Labs: Laboratory Results - last 24 hr 06/05/22 12:18: POC Glucose 137 H 06/05/22 17:10: POC Glucose 140 H 06/05/22 21:45: POC Glucose 163 H 06/06/22 06:35: POC Glucose 153 H Radiography Diagnostic Testing: Radiology Impression Foot X-Ray 06/04/22 07:24 IMPRESSION: Intraoperative digital documentation. It is as described. Electronically Signed: Cabrera Saul, at 11:51 EST , Physical Exam Narrative General: Alert, Oriented x3, Cooperative, No apparent distress, morbidly obese HEENT: Atraumatic, PERRLA, EOMI, Normocephalic Oral: Moist Mucosa Neck: Supple, No JVD Lungs: Diminished, Normal air movement, No rhonchi, No wheeze, No rales Cardiovascular: Regular rate, Regular Rhythm, Normal S1, Normal S2, No murmurs Abdomen: Soft, Non Tender, Non-Distended, No Hepato-splenomegaly Extremities: No edema, Capillary Refill Less than 3 Seconds Skin: Left lower extremity in dressing intact Musculoskeletal: No Tenderness to Palpation of Joints or Extremities Neurological: Cranial nerves II-XII grossly intact, Motor Exam 5/5 strength throughout, Sensory exam intact to light touch and pain Psych/Mental Status: Normal Affect, Appropriate Assessment & Plan Assessment/Plan (1) Type 2 diabetes mellitus with foot ulcer: PLAN: Plan 1. Status post Sam arthroplasty of her first great toe for diabetic foot ulcer/DM2 with neuropathy ? Continue nonweightbearing status ? Continue with Accu-Cheks ACHS as well as insulin ? We will make adjustments as necessary ? We will hold her oral medication ? PT/OT with possible SNF placement ? Pain management per primary ? Continue with Lyrica 2. Hypertension, peripheral artery disease, hyperlipidemia, GERD, anxiety, depression, history of PEs and DVTs, COPD are chronic medical conditions we will monitor and make adjustments to her home medications as needed DVT: George Charges/Coding Visit Charges Office Visits / Consults: 75430 OV L3 Est
[2022-06-06] MEDS: Atenolol 100 MG Tablet PO (10:35)
[2022-06-06] MEDS: buPROPion (SR) 150 MG Tablet.SA PO ×2 (10:35→20:59)
[2022-06-06] MEDS: Furosemide 40 MG Tablet PO (10:35)
[2022-06-06] MEDS: Pantoprazole Sodium 40 MG Tablet PO (10:35)
[2022-06-06] MEDS: Pregabalin 75 MG Capsule 300 MG PO ×2 (10:54→21:03)
[2022-06-06] MEDS: Ferrous Sulfate 325 MG Tablet PO ×2 (13:01→17:17)
[2022-06-06 13:20] LABS: Bedside Glucose 140 mg/dL (74-106)
--- NOTE | 2022-06-06 14:36 | PCM.PROGNOTE ---
Subjective Subjective Patient seen this a.m. resting in bed. Left foot is elevated. Patient states that her pain is continuing to improve following surgery. Denies any constitutional symptoms. Denies any further complaints. Objective Data Objective Data Vital Signs: Vital Signs Temp Pulse Resp BP Pulse Ox O2 Del Method O2 Flow Rate 98 F 64 18 151/53 H 98 Room Air 2 06/06/22 09:30 06/06/22 09:30 06/06/22 09:30 06/06/22 09:30 06/06/22 09:30 06/06/22 09:30 06/05/22 23:00 Oxygen Flow Rate (L/min) 2 Oxygen Delivery Method Room Air Weight: 118.841 kg Body Mass Index (BMI) 47.9 Intake & Output: Intake and Output for Last 24 Hours 06/04/22 06/05/22 06/06/22 23:59 23:59 23:59 Intake Total 1203.75 / 1203.75 650 / 650 Output Total 1400 / 1400 800 / 800 Balance -196.25 / -196.25 -150 / -150 Lab / Micro Data Result Diagrams: 06/05/22 06:46 06/05/22 06:46 Labs: Laboratory Results - last 24 hr 06/05/22 17:10: POC Glucose 140 H 06/05/22 21:45: POC Glucose 163 H 06/06/22 06:35: POC Glucose 153 H 06/06/22 12:59: POC Glucose 140 H Physical Exam Narrative Dressing right foot is clean, dry and intact with no complications. Const alert, oriented x3 and no apparent distress Assessment & Plan Assessment/Plan (1) Diabetes mellitus with diabetic polyneuropathy: (2) Type 2 diabetes mellitus with foot ulcer: (3) Hallux rigidus, left foot: (4) Non-pressure chronic ulcer of other part of left foot with fat layer exposed: PLAN: Plan Patient seen and evaluated Patient is s/p left foot Sam arthroplasty on 06/04/22 without complication. POD #2. She is being admitted for observation and nursing facility placement. Dressings taken down and surgical site inspected. Skin well coapted with intact sutures. Steinmann pin emerging from distal hallux. Surgical site demonstrates no signs of infection. Dressing changed today consisting of Betadine, Adaptic, 4 x 4 gauze, Kerlix, Leroy wrap rolled onto the foot. No weightbearing left foot. Keep left foot elevated. SCD left lower extremity. Patient is on Xarelto 20mg daily due to her history of blood clots. Pain management: Acetaminophen and Oxyir as needed Antibiotic Propylaxis: Cefazolin 1g IV q 8 hours for 24 hours, then ok to d/c. Patient has finished antibiotic. Hospitalist medicine consulted for diabetes and other medical problems - appreciate assistance. Case management consulted for nursing facility placement. Please do not hesitate to call for any questions or concerns Sulaiman Bauer Jr. D.P.M. [facility] [place] [phone]
[2022-06-06] MEDS: Rivaroxaban 20 MG Tablet PO (17:21)
[2022-06-06 17:56] LABS: Bedside Glucose 164 mg/dL (74-106)
[2022-06-06] MEDS: traZODone 50 MG Tablet PO (20:58)
[2022-06-06] MEDS: QUEtiapine 100 MG Tablet PO (20:58)
[2022-06-06] MEDS: Montelukast 10 MG Tablet PO (20:58)
[2022-06-06] MEDS: Venlafaxine XR 150 MG Capsule 300 MG PO (20:58)
[2022-06-06] MEDS: Pravastatin 40 MG Tablet PO (20:59)
[2022-06-06 23:10] LABS: Bedside Glucose 163 mg/dL (74-106)
[2022-06-07] VITALS (9 sets, daily range): BP systolic 130–157; BP diastolic 55–62; PULSE 58–68; RESP 16–18; TEMP 36.4–36.6; O2SAT 90–94
[2022-06-07] MEDS: oxyCODONE 5 MG Tablet PO ×3 (06:16→20:14)
[2022-06-07] MEDS: Acetaminophen 325 MG Tablet 650 MG PO ×3 (06:16→20:14)
[2022-06-07] MEDS: Insulin Lispro 100 UNIT/ML INSULN.PEN SC ×4 (06:17→20:15)
[2022-06-07 06:30] LABS: Absolute Lymphocyte Count 3.48 X10^3/uL (0.83-4.51); Absolute Neutrophil Count 3.8 X10^3/uL (2.0-7.7); Basophil# 0.03 X10^3/uL; Basophil% 0.4 % (0-1); Eosinophil# 0.25 X10^3/uL; Hematocrit 44.9 % (37-47); Hemoglobin 14.6 g/dL (12.0-15.0); Lymphocyte # 3.48 X10^3/ul (0.83-4.51); Lymphocyte % 42.3 % (19-41); Mean Corp Hgb Conc 32.5 g/dL (32-36); Mean Corpuscular Hgb 29.1 pg (27.0-32.0); Mean Corpuscular Volume 89.6 fL (81-99); Mean Platelet Vol. 10.4 fl (6.2-12.0); Monocyte# 0.62 X10^3/uL; Monocyte% 7.5 % (0-10); NRBC Flagged by Analyzer 0 % (0-5); Neutrophil # 3.83 X10^3/uL (2.7-7.7); Neutrophil % 46.6 % (47-70); Platelet Count 200 K/mm3 (150-450); RBC Distribution Width SD 49.2 fl (35.1-43.9); Red Blood Count 5.01 M/mm3 (4.2-5.4); White Blood Count 8.2 K/mm3 (4.4-11.0)
[2022-06-07 06:40] LABS: Bedside Glucose 184 mg/dL (74-106)
[2022-06-07 06:56] LABS: Anion Gap 7 (5-15); BUN 29 mg/dL (7-18); BUN/Creat Ratio 38.7 RATIO (10-20); Calcium,Total 9.7 mg/dL (8.5-10.1); Chloride 100 mmol/L (98-107); Creatinine, Serum 0.75 mg/dL (0.55-1.02); EST Glomerular Filtration Rate 85 mL/min (>60); Est Glom Filt Rate - Afr Amer 103 mL/min (>60); Estimated Creatinine Clearance 67.03 ml/min; Glucose 171 mg/dL (74-106); Potassium 3.9 mmol/L (3.5-5.1); Sodium Level 137 mmol/L (136-145)
[2022-06-07] MEDS: Budesonide Respules 0.5 MG/2 ML AMPUL.NEB. INHALATION ×2 (06:58→19:27)
[2022-06-07] MEDS: Ipratropium/Albuterol Sulfate 3 ML AMPUL.NEB INHALATION ×2 (06:58→19:27)
--- NOTE | 2022-06-07 07:07 | PCM.PROGNOTE ---
Subjective Subjective Patient was seen this morning for follow up on right foot. She relates she is doing well, awaiting nursing facility placement. No fevers or any other complaints. Objective Data Objective Data Vital Signs: Vital Signs Temp Pulse Resp BP Pulse Ox O2 Del Method O2 Flow Rate 97.9 F 67 18 135/59 H 91 Room Air 2 06/07/22 05:31 06/07/22 07:00 06/07/22 07:00 06/07/22 05:31 06/07/22 07:00 06/07/22 07:00 06/05/22 23:00 Oxygen Flow Rate (L/min) 2 Oxygen Delivery Method Room Air Weight: 118.841 kg Body Mass Index (BMI) 47.9 Intake & Output: Intake and Output for Last 24 Hours 06/05/22 06/06/22 06/07/22 23:59 23:59 23:59 Intake Total 650 / 650 1000 / 1000 Output Total 800 / 800 600 / 600 900 / 900 Balance -150 / -150 400 / 400 -900 / -900 Lab / Micro Data Result Diagrams: 06/07/22 05:25 06/07/22 05:25 Labs: Laboratory Results - last 24 hr 06/06/22 12:59: POC Glucose 140 H 06/06/22 17:16: POC Glucose 164 H 06/06/22 21:07: POC Glucose 163 H 06/07/22 05:25: WBC 8.2, RBC 5.01, Hgb 14.6, Hct 44.9, MCV 89.6, MCH 29.1, MCHC 32.5, RDW Std Deviation 49.2 H, RDW Coeff of Luiz 15.0 H, Plt Count 200, MPV 10.4, Immature Gran % (Auto) 0.200, Neut % (Auto) 46.6 L, Lymph % (Auto) 42.3 H, [place] % (Auto) 7.5, Eos % (Auto) 3.0, Baso % (Auto) 0.4, Absolute Neuts (auto) 3.8, Absolute Lymphs (auto) 3.48, Nucleated RBC % 0 06/07/22 05:25: Sodium 137, Potassium 3.9, Chloride 100, Carbon Dioxide 30.0, Anion Gap 7, BUN 29 H, Creatinine 0.75, Estim Creat Clear Calc 67.03, Est GFR (MDRD) Af Amer 103, Est GFR (MDRD) Non-Af 85, BUN/Creatinine Ratio 38.7 H, Glucose 171 H, Calcium 9.7 06/07/22 06:17: POC Glucose 184 H Physical Exam Narrative Dressing right foot is clean, dry and intact with no complications. Incision site right foot well coapted, sutures intact, no dehiscense, no evidence of infection, CFT < 2 seconds to all toes with no evidence of ischemia, 1st toe in good position. Const alert, oriented x3 and no apparent distress Assessment & Plan Assessment/Plan (1) Diabetes mellitus with diabetic polyneuropathy: (2) Type 2 diabetes mellitus with foot ulcer: (3) Hallux rigidus, left foot: (4) Non-pressure chronic ulcer of other part of left foot with fat layer exposed: PLAN: Plan Patient seen and evaluated. Patient is s/p left foot Sam arthroplasty on 06/04/22 without complication. Dressings taken down and surgical site inspected. Skin well coapted with intact sutures. Steinmann pin emerging from distal hallux, and is stable. Surgical site demonstrates no signs of infection. Dressing changed today consisting of Betadine, Adaptic, 4 x 4 gauze, Kerlix, Leroy wrap rolled onto the foot. No weightbearing left foot. Keep left foot elevated. SCD left lower extremity. Patient is on Xarelto 20mg daily due to her history of blood clots. Pain management: Acetaminophen and Oxyir as needed Antibiotic Propylaxis: Cefazolin 1g IV q 8 hours for 24 hours, then ok to d/c. Patient has finished antibiotic. Hospitalist medicine consulted for diabetes and other medical problems - appreciate assistance. Case management consulted for nursing facility placement. Please do not hesitate to call for any questions or concerns
[2022-06-07] MEDS: Juven (unflavored) Packet 1 PACKET PO ×2 (08:24→17:57)
[2022-06-07] MEDS: Furosemide 40 MG Tablet PO (08:24)
[2022-06-07] MEDS: Pantoprazole Sodium 40 MG Tablet PO (08:25)
[2022-06-07] MEDS: Atenolol 100 MG Tablet PO (08:25)
[2022-06-07] MEDS: buPROPion (SR) 150 MG Tablet.SA PO ×2 (08:25→20:15)
[2022-06-07] MEDS: Ferrous Sulfate 325 MG Tablet PO ×2 (08:25→17:58)
--- NOTE | 2022-06-07 08:29 | WOUNDNOTE ---
wound photo: left great toe
--- NOTE | 2022-06-07 08:29 | WOUNDNOTE ---
wound photo: left great toe
[2022-06-07] MEDS: Pregabalin 75 MG Capsule 300 MG PO ×2 (08:34→20:20)
--- NOTE | 2022-06-07 08:53 | CASEMGMT ---
Social Work SW sent updated clinicals to Clara for insurance auth. Plan: Clara, pending precert TIMOTHY Goyal
[2022-06-07 13:15] LABS: Bedside Glucose 152 mg/dL (74-106)
[2022-06-07] MEDS: ALPRAZolam 0.5 MG Tablet PO ×2 (14:05→20:14)
[2022-06-07] MEDS: Polyethylene Glycol 3350 17 GM PACKET PO (14:05)
[2022-06-07] MEDS: Senna/Docusate Sodium 1 Tablet 2 TABLET PO ×2 (14:06→20:15)
--- NOTE | 2022-06-07 16:42 | PCM.PN.HOSP ---
Reason for Visit Reason for Visit: Diagnoses Type 2 diabetes mellitus with diabetic polyneuropathy (06/04/22) Type 2 diabetes mellitus with foot ulcer (06/04/22) Type 2 diabetes mellitus without complications (06/04/22) Non-pressure chronic ulcer of other part of unspecified foot with unspecified severity (06/04/22) Non-pressure chronic ulcer of other part of right foot with fat layer exposed (06/04/22) Non-pressure chronic ulcer of other part of left foot with fat layer exposed (06/04/22) Hallux rigidus, right foot (06/04/22) Hallux rigidus, left foot (06/04/22) Objective Data Objective Data Vital Signs: Vital Signs Temp Pulse Resp BP Pulse Ox O2 Del Method O2 Flow Rate 97.9 F 67 18 135/59 H 93 Room Air 2 06/07/22 05:31 06/07/22 07:00 06/07/22 07:00 06/07/22 05:31 06/07/22 12:11 06/07/22 07:00 06/05/22 23:00 Oxygen Flow Rate (L/min) 2 Oxygen Delivery Method Room Air Weight: 262 lb Body Mass Index (BMI) 47.9 Intake & Output: Intake and Output for Last 24 Hours 06/05/22 06/06/22 06/07/22 23:59 23:59 23:59 Intake Total 650 / 650 1000 / 1000 Output Total 800 / 800 600 / 600 900 / 900 Balance -150 / -150 400 / 400 -900 / -900 Lab / Micro Data Result Diagrams: 06/07/22 05:25 06/07/22 05:25 Labs: Laboratory Results - last 24 hr 06/06/22 17:16: POC Glucose 164 H 06/06/22 21:07: POC Glucose 163 H 06/07/22 05:25: WBC 8.2, RBC 5.01, Hgb 14.6, Hct 44.9, MCV 89.6, MCH 29.1, MCHC 32.5, RDW Std Deviation 49.2 H, RDW Coeff of Luiz 15.0 H, Plt Count 200, MPV 10.4, Immature Gran % (Auto) 0.200, Neut % (Auto) 46.6 L, Lymph % (Auto) 42.3 H, [place] % (Auto) 7.5, Eos % (Auto) 3.0, Baso % (Auto) 0.4, Absolute Neuts (auto) 3.8, Absolute Lymphs (auto) 3.48, Nucleated RBC % 0 06/07/22 05:25: Sodium 137, Potassium 3.9, Chloride 100, Carbon Dioxide 30.0, Anion Gap 7, BUN 29 H, Creatinine 0.75, Estim Creat Clear Calc 67.03, Est GFR (MDRD) Af Amer 103, Est GFR (MDRD) Non-Af 85, BUN/Creatinine Ratio 38.7 H, Glucose 171 H, Calcium 9.7 06/07/22 06:17: POC Glucose 184 H 06/07/22 12:41: POC Glucose 152 H Assessment & Plan Assessment/Plan (1) Type 2 diabetes mellitus with foot ulcer: PLAN: Plan 1. Nonpressure chronic ulcer of left foot great toe, diabetic foot ulcer status post left foot Sam arthroplasty on 06/04/2022: [facility] culture from 11/11/2019 shows MSSA. She has a history of vancomycin sensitive Enterococcus faecalis, MSSE. Patient had Stillerman pain from distal hallux. Surgical site demonstrated no sign of infection. Adaptic dressing. No weightbearing on left foot. Continue cefazolin 1 g IV every 8 hourly for 24 hours and then discontinue. 2. Diabetes mellitus type 2 complicated with diabetic neuropathy: Patient on Lyrica. Accu-Chek insulin coverage Humalog sliding scale. 3.. Hypertension, peripheral artery disease, hyperlipidemia, GERD, anxiety, depression, history of PEs and DVTs, and COPD are chronic medical conditions: Patient on Xarelto and continued. Multiple comorbidities complicates the present care and expect difficult and delay recovery. Continue monitor and make adjustments to her home medications as needed DVT: Xarelto Charges/Coding Visit Charges Inpatient E&M: 08727 Subs Hosp L2
[2022-06-07 17:40] LABS: Bedside Glucose 172 mg/dL (74-106)
[2022-06-07] MEDS: Rivaroxaban 20 MG Tablet PO (17:57)
[2022-06-07] MEDS: Venlafaxine XR 150 MG Capsule 300 MG PO (20:16)
[2022-06-07] MEDS: Pravastatin 40 MG Tablet PO (20:16)
[2022-06-07] MEDS: traZODone 50 MG Tablet PO (20:16)
[2022-06-07] MEDS: Montelukast 10 MG Tablet PO (20:17)
[2022-06-07] MEDS: QUEtiapine 100 MG Tablet PO (20:17)
[2022-06-07 20:35] LABS: Bedside Glucose 203 mg/dL (74-106)
[2022-06-08 06:08] VITALS: BP 116/55; PULSE 66; RESP 16; TEMP 36.7; O2SAT 92
[2022-06-08] MEDS: Insulin Lispro 100 UNIT/ML INSULN.PEN SC ×2 (06:11→11:21)
[2022-06-08] MEDS: Acetaminophen 325 MG Tablet 650 MG PO ×2 (06:19→14:26)
[2022-06-08] MEDS: oxyCODONE 5 MG Tablet PO ×2 (06:19→14:26)
[2022-06-08 06:36] LABS: Bedside Glucose 179 mg/dL (74-106)
[2022-06-08 06:50] VITALS: PULSE 61; RESP 20; O2SAT 92
[2022-06-08] MEDS: Ipratropium/Albuterol Sulfate 3 ML AMPUL.NEB INHALATION ×2 (06:50→13:08)
[2022-06-08] MEDS: Budesonide Respules 0.5 MG/2 ML AMPUL.NEB. INHALATION (06:50)
--- NOTE | 2022-06-08 07:05 | PN_ITS ---
Subjective Subjective Patient was seen this morning for follow up on left foot. She relates she feels like overall she is doing good. She did bump foot yesterday. No fever, chills, nausea or vomiting. No calf pain at this time. Objective Data Objective Data Vital Signs: Vital Signs Temp Pulse Resp BP Pulse Ox O2 Del Method O2 Flow Rate 98.1 F 61 20 H 116/55 L 92 Room Air 2 06/08/22 06:08 06/08/22 06:50 06/08/22 06:50 06/08/22 06:08 06/08/22 06:50 06/08/22 06:50 06/07/22 23:00 Oxygen Flow Rate (L/min) 2 Oxygen Delivery Method Room Air Weight: 118.841 kg Body Mass Index (BMI) 47.9 Intake & Output: Intake and Output for Last 24 Hours 06/06/22 06/07/22 06/08/22 23:59 23:59 23:59 Intake Total 1000 / 1000 600 / 600 Output Total 600 / 600 900 / 900 Balance 400 / 400 -900 / -900 600 / 600 Lab / Micro Data Result Diagrams: 06/07/22 05:25 06/07/22 05:25 Labs: Laboratory Results - last 24 hr 06/07/22 12:41: POC Glucose 152 H 06/07/22 17:06: POC Glucose 172 H 06/07/22 20:11: POC Glucose 203 H 06/08/22 06:07: POC Glucose 179 H Physical Exam Narrative Dressing right foot is clean, dry and intact. Incision site right foot well coapted, sutures intact, no dehiscense, no evidence of infection, CFT < 2 seconds to all toes with no evidence of ischemia, 1st toe in good position. Const alert, oriented x3 and no apparent distress Assessment & Plan Assessment/Plan (1) Diabetes mellitus with diabetic polyneuropathy: (2) Type 2 diabetes mellitus with foot ulcer: (3) Hallux rigidus, left foot: (4) Non-pressure chronic ulcer of other part of left foot with fat layer expose d: PLAN: Plan Patient seen and evaluated. Patient is s/p left foot Sam arthroplasty on 06/04/22 without complication. Dressings taken down and surgical site inspected. Skin well coapted with intact sutures. Steinmann pin emerging from distal hallux, pin cap is out of position. Surgical site demonstrates no signs of infection. Dressing changed today consisting of Betadine, Adaptic, 4 x 4 gauze, Kerlix, Leroy wrap rolled onto the foot. No weightbearing left foot. Keep left foot elevated. SCD left lower extremity. Patient is on Xarelto 20mg daily due to her history of blood clots. Pain management: Acetaminophen and Oxyir as needed Antibiotic Propylaxis: Cefazolin 1g IV q 8 hours for 24 hours, then ok to d/c. Patient has finished antibiotic. Hospitalist medicine consulted for diabetes and other medical problems - appreciate assistance. Case management consulted for nursing facility placement. Please do not hesitate to call for any questions or concerns
[2022-06-08] MEDS: Furosemide 40 MG Tablet PO (07:53)
[2022-06-08] MEDS: Pantoprazole Sodium 40 MG Tablet PO (07:53)
[2022-06-08] MEDS: Juven (unflavored) Packet 1 PACKET PO (07:53)
[2022-06-08] MEDS: Polyethylene Glycol 3350 17 GM PACKET PO (07:53)
[2022-06-08] MEDS: Senna/Docusate Sodium 1 Tablet 2 TABLET PO (07:53)
[2022-06-08] MEDS: Atenolol 100 MG Tablet PO (07:54)
[2022-06-08] MEDS: buPROPion (SR) 150 MG Tablet.SA PO (07:54)
[2022-06-08] MEDS: Pregabalin 75 MG Capsule 300 MG PO (07:59)
--- NOTE | 2022-06-08 08:13 | CASEMGMT ---
Addendum entered by Wnedy Bishop 06/08/22 10:27: CLIFTON in to inform pt of insurance auth being received. SW shared intent of MD Kulkarni that pt will d/c today. SW also checked with pt regarding AD. Pt continues to be to tired to complete at this time. SW let pt know these documents can be completed here at [facility] at a later day with SW at [facility]. Pt voiced understanding, shared will attempt to do them at [facility]. Original Note: Social Work SW received message from Clara. Precert has been obtained. SW updated MD Ham. Plan: TIMOTHY Payne
[2022-06-08 08:18] VITALS: BP 135/59; PULSE 60; RESP 16; TEMP 36.4; O2SAT 92
--- NOTE | 2022-06-08 10:07 | PN.HOSP_ITS ---
Reason for Visit Reason for Visit: Nonpressure chronic ulcer of left foot great toe, diabetic foot ulcer Diagnoses Type 2 diabetes mellitus with diabetic polyneuropathy (06/04/22) Type 2 diabetes mellitus with foot ulcer (06/04/22) Type 2 diabetes mellitus without complications (06/04/22) Non-pressure chronic ulcer of other part of unspecified foot with unspecified severity (06/04/22) Non-pressure chronic ulcer of other part of right foot with fat layer exposed (06/04/22) Non-pressure chronic ulcer of other part of left foot with fat layer exposed (06/04/22) Hallux rigidus, right foot (06/04/22) Hallux rigidus, left foot (06/04/22) Objective Data Objective Data Vital Signs: Vital Signs Temp Pulse Resp BP Pulse Ox O2 Del Method O2 Flow Rate 97.5 F L 60 16 135/59 H 92 Room Air 2 06/08/22 08:18 06/08/22 08:18 06/08/22 08:18 06/08/22 08:18 06/08/22 08:18 06/08/22 08:18 06/07/22 23:00 Oxygen Flow Rate (L/min) 2 Oxygen Delivery Method Room Air Weight: 262 lb Body Mass Index (BMI) 47.9 Intake & Output: Intake and Output for Last 24 Hours 06/06/22 06/07/22 06/08/22 23:59 23:59 23:59 Intake Total 1000 / 1000 600 / 600 Output Total 600 / 600 900 / 900 Balance 400 / 400 -900 / -900 600 / 600 Lab / Micro Data Result Diagrams: 06/07/22 05:25 06/07/22 05:25 Labs: Laboratory Results - last 24 hr 06/07/22 12:41: POC Glucose 152 H 06/07/22 17:06: POC Glucose 172 H 06/07/22 20:11: POC Glucose 203 H 06/08/22 06:07: POC Glucose 179 H Physical Exam Narrative Patient does not have severe pain on the left foot. No fever. Seen and examined. General: Alert, Oriented x3, Cooperative, No apparent distress, morbidly obese HEENT: Atraumatic, PERRLA, EOMI, Normocephalic Oral: Moist Mucosa Neck: Supple, No JVD Lungs: Diminished, Normal air movement, No rhonchi, No wheeze, No rales Cardiovascular: Regular rate, Regular Rhythm, Normal S1, Normal S2, No murmurs Abdomen: Soft, Non Tender, Non-Distended, No Hepato-splenomegaly Extremities: No edema, Capillary Refill Less than 3 Seconds Skin: Left lower extremity in dressing intact Musculoskeletal: No Tenderness to Palpation of Joints or Extremities Neurological: Cranial nerves II-XII grossly intact, Motor Exam 5/5 strength throughout, Sensory exam intact to light touch and pain Psych/Mental Status: Normal Affect, Appropriate Assessment & Plan Assessment/Plan (1) Type 2 diabetes mellitus with foot ulcer: PLAN: Plan 1. Nonpressure chronic ulcer of left foot great toe, diabetic foot ulcer status post left foot Sam arthroplasty on 06/04/2022: Patient is being admitted on [facility] floor. Wound culture from 11/11/2019 shows MSSA. She has a history of vancomycin sensitive Enterococcus faecalis, MSSE. Patient had Stillerman pain from distal hallux. Surgical site demonstrated no sign of infection. Adaptic dressing. No weightbearing on left foot. Continue cefazolin 1 g IV every 8 hourly for 24 hours and then discontinue. 06/08: Patient is being discharged by pigment processor. Med reconciliation was done. 2. Diabetes mellitus type 2 complicated with diabetic neuropathy: Patient on Lyrica. Accu-Chek insulin coverage Humalog sliding scale. 06/08: Insulin dose was adjusted. Continue Accu-Cheks before meals and at bedtime on covered with Humalog sliding scale. Prescription for Humalog insulin given. 3.. Hypertension, peripheral artery disease, hyperlipidemia, GERD, anxiety, depression, history of PEs and DVTs, and COPD are chronic medical conditions: Patient on Xarelto and continued. Multiple comorbidities complicates the present care and expect difficult and delay recovery. Continue monitor and make adjustments to her home medications as needed DVT: Xarelto Patient is stable for discharge. Charges/Coding Visit Charges Inpatient E&M: 19767 Subs Hosp L2
[2022-06-08] MEDS: ALPRAZolam 0.5 MG Tablet PO (10:41)
[2022-06-08 11:35] VITALS: BP 134/62; PULSE 59; RESP 16; TEMP 36.6; O2SAT 93
[2022-06-08] MEDS: Ferrous Sulfate 325 MG Tablet PO (11:55)
[2022-06-08 12:01] LABS: Bedside Glucose 255 mg/dL (74-106)
[2022-06-08 12:27] VITALS: O2SAT 88
[2022-06-08 13:08] VITALS: PULSE 65; RESP 20
--- NOTE | 2022-06-08 13:12 | DS.PCM_ITS ---
Providers Date of Admission: 06/04/22 Primary Care Physician: Dr. Camilo Sloan, Consultations 06/04/22 08:48 Consult: Hospitalist Routine Consulting Provider: Kenny López Reason for Consult: diabetes and other medical problems EMERGENT Consult: No MD Notified: Yes Date Notified: 06/04/22 Time Notified: 12:06 Method of Notification: via text Reason For Visit: lt sam arthroplasty of 1st metatarsal phalangea Diagnosis Discharge Diagnosis (1) Type 2 diabetes mellitus with foot ulcer: Status: Acute Code(s): E11.621 - Type 2 diabetes mellitus with foot ulcer; L97.509 - Non-pressure chronic ulcer of other part of unspecified foot with unspecified severity Plan Patient seen and evaluated. Patient is s/p left foot Sam arthroplasty on 06/04/22 without complication. Dressings taken down and surgical site inspected. Skin well coapted with intact sutures. Steinmann pin emerging from distal hallux, pin cap is out of position. Surgical site demonstrates no signs of infection. Dressing changed today consisting of Betadine, Adaptic, 4 x 4 gauze, Kerlix, Leroy wrap rolled onto the foot. No weightbearing left foot. Keep left foot elevated. SCD left lower extremity. Patient is on Xarelto 20mg daily due to her history of blood clots. Pain management: Acetaminophen and Oxyir as needed Antibiotic Propylaxis: Cefazolin 1g IV q 8 hours for 24 hours, then ok to d/c. Patient has finished antibiotic. Hospitalist medicine consulted for diabetes and other medical problems - appreciate assistance. Case management consulted for nursing facility placement. Please do not hesitate to call for any questions or concerns Medications at Discharge Home Medications alprazolam 0.5 mg tablet 0.5 mg PO BID PRN PRN Anxiety 12/15/13 atenolol 100 mg tablet 100 mg PO DAILY blood pressure 12/15/13 omeprazole 40 mg capsule,delayed release 40 mg PO DAILY GERD 12/15/13 pravastatin 40 mg tablet 40 mg PO QHS cholesterol 03/17/14 glimepiride 4 mg tablet 4 mg PO DAILY diabetes 04/23/15 docusate sodium 100 mg capsule 200 mg PO BID Constipation 03/10/17 pregabalin 300 mg capsule (Lyrica) 300 mg PO BID nerve pain 03/10/17 rivaroxaban 20 mg tablet 20 mg PO DAILY blood thinner 03/10/17 quetiapine 100 mg tablet 100 mg PO QHS sleep 12/12/17 trazodone 50 mg tablet 50 mg PO QHS sleep 12/13/17 montelukast 10 mg tablet 10 mg PO QPM #30 tabs 12/26/20 multivitamin (Daily Multi-Vitamin tablet) 1 tab PO DAILY 12/26/20 bupropion HCl 150 mg tablet,12 hr sustained-release 150 mg PO BID 11/27/21 dapagliflozin 5 mg tablet (Farxiga) 5 mg PO DAILY 11/27/21 diclofenac sodium 75 mg tablet,delayed release 75 mg PO BID 11/27/21 insulin glargine 100 unit/mL (3 mL) subcutaneous pen (Lantus Solostar U-100 Insulin) 60 unit subcut BID 11/27/21 omega-3 acid ethyl esters 1 gram capsule 2 cap PO BID 11/27/21 venlafaxine 150 mg capsule,extended release 24 hr 300 mg PO QHS 11/27/21 furosemide 40 mg tablet 40 mg PO DAILY #30 tabs 04/20/22 albuterol sulfate 2.5 mg/3 mL (0.083 %) solution for nebulization 2.5 mg (3 mL) inhalation Q6H PRN SHORTNESS OF BREATH #180 vials 04/29/22 albuterol sulfate 90 mcg/actuation aerosol inhaler 2 puff inhalation Q6H PRN shortness of breath or wheezing #18 grams 04/29/22 fluticasone 232 mcg-salmeterol 14 mcg/actuation breath activated powdr (AirDuo RespiClick) 1 inh inhalation BID #1 ea 04/29/22 guaifenesin 1,200 mg tablet, extended release 12 hr 1,200 mg PO Q12H #60 tabs 04/29/22 loratadine 10 mg tablet 10 mg PO DAILY #90 tabs 04/29/22 acetaminophen 650 mg tablet,extended release 1,300 mg PO Q8H 05/31/22 metformin 500 mg tablet,extended release 24 hr 1,000 mg PO BID 05/31/22 umeclidinium 62.5 mcg/actuation blister powder for inhalation (Incruse Ellipta) 1 inh inhalation DAILY 05/31/22 ferrous sulfate 325 mg (65 mg iron) tablet 325 mg PO DAILY #30 tabs 06/08/22 insulin lispro 100 unit/mL subcutaneous pen (Humalog KwikPen (U-100) Insulin) See Protocol subcut ACHS #15 mL 06/08/22 oxycodone 5 mg tablet 5 mg PO Q6H PRN PRN Pain 4 days #14 tabs 06/08/22 polyethylene glycol 3350 17 gram oral powder packet 17 g PO DAILY #0 ea 06/08/22 sennosides 8.6 mg-docusate sodium 50 mg tablet (Stool Softener-Stimulant Laxative) 2 tab PO BID #0 tabs 06/08/22 Hospital Course Summary of Care Provided Hospital Course: Patient underwent left foot surgery on Tuesday06/04/22 without complication. She was admitted and has done well, she will be discharged to nursing facility. Physical Exam Narrative see my podiatry note from this morning. Weight / BMI Weight Weight: 118.841 kg Body Mass Index (BMI) 47.9 ABG / Lab / Microbiology Data Result Diagrams: 06/07/22 05:25 06/07/22 05:25 Laboratory: Laboratory Results - last 24 hr 06/07/22 12:41: POC Glucose 152 H 06/07/22 17:06: POC Glucose 172 H 06/07/22 20:11: POC Glucose 203 H 06/08/22 06:07: POC Glucose 179 H 06/08/22 11:20: POC Glucose 255 H Microbiology: Microbiology 06/08/22 10:35 Nasal Secretion SARS-CoV-2 Antigen (Rapid) - Final D/C Instructions Weight Bearing Status: No weight bearing (No weightbearing left foot) Keep extremity elevated above heart level: Left Leg (Keep left foot elevated for at least 50 minutes of every hour.) Call your doctor if your incision/area has: Continuous Slow Oozing, Sudden Increased Bleeding, Foul Smelling Discharge and - (Left foot: Change dressing daily. [place] betadine to incision site and to pin site 1st toe, apply overlying gauze, kerlix and leroy dressings over foot and pin. ) Call your doctor if you observe: Fever of 101 or Higher, Shortness of breath, Chest pain, Calf discomfort and Uncontrolled pain Please Follow Up With: Deepak Kulkarni DPM When: [facility] week [facility], follow up sooner if needed. Meaningful Use Info Meaningful Use Diagnoses (Choose all that apply): None applicable Discharge Plan Admission Admit Date/Time: 06/04/22 08:47 Attending Provider: Deepak Kulkarni Primary Care Provider: Camilo Sloan Consulting Providers: Ashok Robles Discharge Orders/Prescriptions Prescriptions: New polyethylene glycol 3350 17 gram Powder In Packet 17 g PO DAILY Qty: 0 0RF sennosides-docusate sodium [Stool Softener-Stimulant Laxat] 8.6-50 mg Tablet 2 tab PO BID Qty: 0 0RF insulin lispro [Humalog KwikPen Insulin] 100 unit/mL Insulin Pen See Protocol subcut ACHS Qty: 15 2RF Protocol: 5. Sliding Scale Insulin High Dosing Condition: 150-209 mg/dl = 3 units Condition: 210-259 mg/dl = 6 units Condition: 260-324 mg/dl = 9 units Condition: 325-374 mg/dl = 12 units Condition: 375-409 mg/dl = 14 units Condition: 410-449 mg/dl = 16 units Condition: Greater than 449 call physician Protocol Text: - Use for Total Daily Dose of Insulin 81-120 units - Very insulin resistant or septic patients HIGH DOSING ALGORITHM oxycodone 5 mg Tablet 5 mg PO Q6H PRN PRN (Reason: Pain) 4 Days Qty: 14 0RF Continued rivaroxaban 20 MG tablet 20 mg PO DAILY Label Comments: Blood thinner pregabalin [Lyrica] 300 mg capsule 300 mg PO BID multivitamin [Daily Multi-Vitamin] Tablet 1 tab PO DAILY montelukast 10 mg tablet 10 mg PO QPM Qty: 30 5RF Farxiga 5 mg tablet 5 mg PO DAILY insulin glargine [Lantus Solostar U-100 Insulin] 100 unit/mL (3 mL) insulin pen 60 unit subcut BID omega-3 acid ethyl esters 1 gram capsule 2 cap PO BID venlafaxine 150 mg capsule,extended release 24hr 300 mg PO QHS bupropion HCl 150 mg tablet sustained-release 12 hr 150 mg PO BID albuterol sulfate 90 mcg/actuation HFA aerosol inhaler 2 puff INHALATION Q6H PRN (Reason: shortness of breath or wheezing) Qty: 18 6RF albuterol sulfate 2.5 mg /3 mL (0.083 %) solution for nebulization 2.5 mg INHALATION Q6H PRN (Reason: SHORTNESS OF BREATH ) Qty: 180 3RF fluticasone propion-salmeterol [AirDuo RespiClick] 232-14 mcg/actuation aerosol powdr breath activated 1 inh INHALATION BID Qty: 1 6RF guaifenesin 1,200 mg tablet extended release 12hr 1,200 mg PO Q12H Qty: 60 6RF loratadine 10 mg tablet 10 mg PO DAILY Qty: 90 3RF atenolol 100 MG tablet 100 mg PO DAILY Label Comments: Blood pressure/heart rate omeprazole 40 MG capsule,delayed release(DR/EC) 40 mg PO DAILY Label Comments: Acid reflux alprazolam 0.5 MG tablet 0.5 mg PO BID PRN PRN (Reason: Anxiety) Label Comments: Anxiety pravastatin 40 MG tablet 40 mg PO QHS Label Comments: Cholesterol docusate sodium 100 MG capsule 200 mg PO BID Label Comments: Stool softener glimepiride 4 MG tablet 4 mg PO DAILY Label Comments: diabetes quetiapine 100 MG tablet 100 mg PO QHS trazodone 50 MG tablet 50 mg PO QHS acetaminophen 650 mg Tablet Extended Release 1,300 mg PO Q8H metformin 500 mg tablet extended release 24 hr 1,000 mg PO BID Incruse Ellipta 62.5 mcg/actuation blister with device 1 inh INHALATION DAILY furosemide 40 mg tablet 40 mg PO DAILY Qty: 30 11RF Changed ferrous sulfate 325 MG tablet 325 mg PO DAILY Qty: 30 0RF Label Comments: Iron supplement Held diclofenac sodium 75 mg tablet,delayed release (DR/EC) 75 mg PO BID Hold Instructions: Hold it while taking Xarelto. Referrals / Follow Up: Camilo Sloan DO [Primary Care Provider] - Disposition Disposition (needs filled in before D/C Order can be placed): Retirement Facility
--- NOTE | 2022-06-08 13:16 | PCM.TXEXTCAR ---
Diet Diet Order/Speech Therapy: 06/04/22 08:50 Diet: Consistent Carb - Calorie Controlled How many daily calories?: 1800 calorie Wound(s) LEFT FOOT: Wound Type: surgical incision to the left great toe with pin Dressing Change: betadine with Adaptic (Left foot: change dressing daily - paint betadine to incision site and pin site, apply overlying gauze, kerlix and leroy bandage.) rt hand: Wound Type: open scabs Rt foot-small toe: Wound Type: scab rt arreaga: Wound Type: scabs Therapies Weight Bearing: Non weight bearing (no weightbearing left foot.) Extremity Affected:: Left Lower (Keep left foot elevated at least 50 minutes of every hour.) Problem/Diagnosis (1) Type 2 diabetes mellitus with foot ulcer: Status: Acute Code(s): E11.621 - Type 2 diabetes mellitus with foot ulcer; L97.509 - Non-pressure chronic ulcer of other part of unspecified foot with unspecified severity Plan Patient seen and evaluated. Patient is s/p left foot Sam arthroplasty on 06/04/22 without complication. Dressings taken down and surgical site inspected. Skin well coapted with intact sutures. Steinmann pin emerging from distal hallux, pin cap is out of position. Surgical site demonstrates no signs of infection. Dressing changed today consisting of Betadine, Adaptic, 4 x 4 gauze, Kerlix, Leroy wrap rolled onto the foot. No weightbearing left foot. Keep left foot elevated. SCD left lower extremity. Patient is on Xarelto 20mg daily due to her history of blood clots. Pain management: Acetaminophen and Oxyir as needed Antibiotic Propylaxis: Cefazolin 1g IV q 8 hours for 24 hours, then ok to d/c. Patient has finished antibiotic. Hospitalist medicine consulted for diabetes and other medical problems - appreciate assistance. Case management consulted for nursing facility placement. Please do not hesitate to call for any questions or concerns Allergies/Procedures Done in Hospital Allergies azithromycin Allergy (Mild, Verified 06/04/22 12:24) Hives enoxaparin sodium [From Lovenox] Allergy (Mild, Verified 06/04/22 12:24) Itching heparin Allergy (Verified 06/04/22 12:24) Itching varenicline [From Chantix] Adverse Reaction (Intermediate, Verified 06/04/22 12:24) MENTAL ISSUES MADE ME GO CRAZY, PUT ME IN THE MENTAL HOSP[facility] Type of Care/Length of Stay Estimated LOS: Convalescent Care Less Than 30 days Type of Care Needed: Skilled Rehab Potential: Good Prognosis: Good Additional Orders/Day of Discharge Day of Discharge: 06/08/22 Follow Up Care Please Follow Up With: Deepak Kulkarni DPM When: 1 week, [facility]. Follow up sooner if needed. Discharge Plan Admission Admit Date/Time: 06/04/22 08:47 Attending Provider: Deepak Kulkarni Primary Care Provider: Camilo Sloan Consulting Providers: Ashok Robles Discharge Orders/Prescriptions Prescriptions: New polyethylene glycol 3350 17 gram Powder In Packet 17 g PO DAILY Qty: 0 0RF sennosides-docusate sodium [Stool Softener-Stimulant Laxat] 8.6-50 mg Tablet 2 tab PO BID Qty: 0 0RF insulin lispro [Humalog KwikPen Insulin] 100 unit/mL Insulin Pen See Protocol subcut ACHS Qty: 15 2RF Protocol: 5. Sliding Scale Insulin High Dosing Condition: 150-209 mg/dl = 3 units Condition: 210-259 mg/dl = 6 units Condition: 260-324 mg/dl = 9 units Condition: 325-374 mg/dl = 12 units Condition: 375-409 mg/dl = 14 units Condition: 410-449 mg/dl = 16 units Condition: Greater than 449 call physician Protocol Text: - Use for Total Daily Dose of Insulin 81-120 units - Very insulin resistant or septic patients HIGH DOSING ALGORITHM oxycodone 5 mg Tablet 5 mg PO Q6H PRN PRN (Reason: Pain) 4 Days Qty: 14 0RF Continued rivaroxaban 20 MG tablet 20 mg PO DAILY Label Comments: Blood thinner pregabalin [Lyrica] 300 mg capsule 300 mg PO BID multivitamin [Daily Multi-Vitamin] Tablet 1 tab PO DAILY montelukast 10 mg tablet 10 mg PO QPM Qty: 30 5RF Farxiga 5 mg tablet 5 mg PO DAILY insulin glargine [Lantus Solostar U-100 Insulin] 100 unit/mL (3 mL) insulin pen 60 unit subcut BID omega-3 acid ethyl esters 1 gram capsule 2 cap PO BID venlafaxine 150 mg capsule,extended release 24hr 300 mg PO QHS bupropion HCl 150 mg tablet sustained-release 12 hr 150 mg PO BID albuterol sulfate 90 mcg/actuation HFA aerosol inhaler 2 puff INHALATION Q6H PRN (Reason: shortness of breath or wheezing) Qty: 18 6RF albuterol sulfate 2.5 mg /3 mL (0.083 %) solution for nebulization 2.5 mg INHALATION Q6H PRN (Reason: SHORTNESS OF BREATH ) Qty: 180 3RF fluticasone propion-salmeterol [AirDuo RespiClick] 232-14 mcg/actuation aerosol powdr breath activated 1 inh INHALATION BID Qty: 1 6RF guaifenesin 1,200 mg tablet extended release 12hr 1,200 mg PO Q12H Qty: 60 6RF loratadine 10 mg tablet 10 mg PO DAILY Qty: 90 3RF atenolol 100 MG tablet 100 mg PO DAILY Label Comments: Blood pressure/heart rate omeprazole 40 MG capsule,delayed release(DR/EC) 40 mg PO DAILY Label Comments: Acid reflux alprazolam 0.5 MG tablet 0.5 mg PO BID PRN PRN (Reason: Anxiety) Label Comments: Anxiety pravastatin 40 MG tablet 40 mg PO QHS Label Comments: Cholesterol docusate sodium 100 MG capsule 200 mg PO BID Label Comments: Stool softener glimepiride 4 MG tablet 4 mg PO DAILY Label Comments: diabetes quetiapine 100 MG tablet 100 mg PO QHS trazodone 50 MG tablet 50 mg PO QHS acetaminophen 650 mg Tablet Extended Release 1,300 mg PO Q8H metformin 500 mg tablet extended release 24 hr 1,000 mg PO BID Incruse Ellipta 62.5 mcg/actuation blister with device 1 inh INHALATION DAILY furosemide 40 mg tablet 40 mg PO DAILY Qty: 30 11RF Changed ferrous sulfate 325 MG tablet 325 mg PO DAILY Qty: 30 0RF Label Comments: Iron supplement Held diclofenac sodium 75 mg tablet,delayed release (DR/EC) 75 mg PO BID Hold Instructions: Hold it while taking Xarelto. Referrals / Follow Up: Camilo Sloan DO [Primary Care Provider] - Disposition Disposition (needs filled in before D/C Order can be placed): [facility] Facility
--- NOTE | 2022-06-08 13:59 | CASEMGMT ---
Social Work? Pt declined for SW to give update on discharge plan to family, stated would call family on own. CLIFTON completed [facility] convalescent form in [facility]. [facility] up transportation [facility] for 3:00 pm. CLIFTON faxed all discharge orders to [facility] via [employer] and notified of discharge time. CLIFTON notified pt nurse of transport time. CLIFTON made copies of discharge orders and placed on pt chart. Sent original orders in envelope with pt upon discharge. ?? Disposition: [facility], skilled, convalescent, level of care? TIMOTHY Goyal
== END 2022-06-08 15:18 | disposition skilled nursing facility (03) ==
LOC: SDC 11:03 → MS3 11:03
PROVIDERS: Family Medicine; Admitting Provider Podiatrist; PCP Preventive Medicine Occupational Medicine; Referring Provider Podiatrist; Visit Provider Podiatrist
PROC: (CPT 28292; principal; 2022-06-04 07:15)
DX: E11.628 Type 2 diabetes mellitus with other skin complications (principal); E11.621 Type 2 diabetes mellitus with foot ulcer; E11.51 Type 2 diabetes mellitus with diabetic peripheral angiopathy without gangrene; L97.522 Non-pressure chronic ulcer of other part of left foot with fat layer exposed; J43.9 Emphysema, unspecified; I50.9 Heart failure, unspecified; I11.0 Hypertensive heart disease with heart failure; E11.42 Type 2 diabetes mellitus with diabetic polyneuropathy; Z79.4 Long term (current) use of insulin; M79.7 Fibromyalgia; D64.9 Anemia, unspecified; Z79.01 Long term (current) use of anticoagulants; Z79.899 Other long term (current) drug therapy; K21.9 Gastro-esophageal reflux disease without esophagitis; Z86.718 Personal history of other venous thrombosis and embolism; F17.210 Nicotine dependence, cigarettes, uncomplicated; F41.9 Anxiety disorder, unspecified; F32.A Depression, unspecified; Z86.711 Personal history of pulmonary embolism; M20.22 Hallux rigidus, left foot; M20.21 Hallux rigidus, right foot
CPT/HCPCS: 28292; 01480; J7050; J7120; 36415; 73620; 73630; 76000; 80048; 80053; 82962; 85025; 87426; 88305; 88311; 94640; 94668; 96365; 96366; 97110; 97163; 97166; 97530; 97535; 99221; 99406; G0378; J2405

== ENCOUNTER → 2023-01-06 | Outpatient (CLI) | payer MEDICAID, SELFPAY | END | disposition home or self-care (01) | PROVIDERS: PCP Preventive Medicine Occupational Medicine; Referring Provider Podiatrist; Visit Provider Podiatrist | DX: L03.031 Cellulitis of right toe (principal) | CPT/HCPCS: 87070; 87077; 87186; 87205 ==

== ENCOUNTER → 2023-01-12 | Outpatient (CLI) | payer MEDICAID, SELFPAY ==
--- NOTE | 2023-01-12 14:46 | CT_ITS ---
EXAM: CT CHEST, LUNG CANCER SCREENING WITHOUT INTRAVENOUS CONTRAST CLINICAL INDICATION: smoking- 1PPD X 40 YEARS TECHNIQUE: Helically acquired images were obtained of the chest without intravenous contrast using low dose (LDCT) lung cancer screening protocol. This CT exam was performed using one or more of the following dose reduction techniques: automated exposure control, adjustment of the mA and/or kV according to patient size, and/or use of iterative reconstruction technique. COMPARISON: 12/29/2021 FINDINGS: LUNGS AND PLEURAL SPACES: There are diffuse groundglass opacities in both lungs. No mass. No pleural effusion or thickening. No pneumothorax. HEART: Unremarkable. Heart size is normal. No pericardial effusion. No significant coronary artery calcifications. MEDIASTINUM: Unremarkable. No mediastinal or hilar adenopathy. Esophagus is unremarkable. No hiatal hernia. THYROID: Unremarkable. No thyroid lesions. BONES/JOINTS: Unremarkable. No suspicious lytic or blastic abnormality. VASCULATURE: Unremarkable. Thoracic aorta is non-dilated. LYMPH NODES: Unremarkable. No enlarged lymph nodes. CT/Low Dose CT Lung Screening IMPRESSION: Mild diffuse groundglass opacities in both lungs. There are no pulmonary nodules. Lung-RADS score: 1 - Recommend continued annual screening with a low-dose CT (LDCT) in 12 months. Electronically Signed: oJão Gross MD at 23:07 EDT ,
== END | disposition home or self-care (01) ==
LOC: CT 14:45
PROVIDERS: PCP Preventive Medicine Occupational Medicine; Referring Provider Nurse Practitioner Acute Care; Visit Provider Nurse Practitioner Acute Care
DX: F17.210 Nicotine dependence, cigarettes, uncomplicated (principal)
CPT/HCPCS: 71271

== ENCOUNTER 2023-01-21 15:05 | Inpatient (IN) | payer MEDICAID, SELFPAY ==
[2023-01-21] VITALS (12 sets, daily range): BP systolic 119–160; BP diastolic 48–109; PULSE 79–86; RESP 14–23; TEMP 35.8–36.8; O2SAT 89–95; BMI 48.3; BMI 47.4
--- NOTE | 2023-01-21 15:45 | RAD_ITS ---
STUDY: X-RAY CHEST REASON FOR EXAM: Female, 57 years old. SOB TECHNIQUE: PA and lateral COMPARISON: June 22, 2018. FINDINGS: Mild nonspecific interstitial thickening in the lower lobes. There is no demonstrated pleural abnormality. Normal size heart. Normal mediastinum and mony. Normal visualized pulmonary arteries. Normal visualized aortic arch and descending thoracic aorta. Normal visualized thoracic spine. Normal visualized ribs, clavicles, and shoulders. There is no demonstrated abnormality of the visualized soft tissue structures of the upper abdomen. RAD/Chest PA and Lateral IMPRESSION: Mild nonspecific interstitial thickening in the lower lobes which may be consistent with viral pneumonia.. Electronically Signed: Deepak Rodriguez MD at 16:49 EDT ,
--- NOTE | 2023-01-21 16:15 | ED.VIS.DYS ---
HPI History of Present Illness Chief Complaint: Shortness of Breath Narrative Narrative: 57-year-old female presenting after being diagnosed with COVID at the urgent care she states they told her to come over to the emergency room because she has a history of COPD. Patient is not having any chest pain. She has shortness of breath which is chronic. She feels generally fatigued and has generalized weakness. Apparently she had a pulse ox of 88% which rebounded. She is currently 93%. She does have some wheezing. [facility] Medical History Anemia Anxiety Anxiety disorder Arthritis Asthma Back pain Bronchitis Cardiology follow-up encounter Chronic back pain Chronic cough Chronic hypoxemic respiratory failure Chronic sinusitis COPD exacerbation COPD, frequent exacerbations Costal chondritis CPAP (continuous positive airway pressure) dependence Depression Diabetes DVT (deep venous thrombosis) Emphysema, unspecified Essential hypertension Excessive bleeding Fibromyalgia Gastric reflux GERD (gastroesophageal reflux disease) Healthcare-associated pneumonia History of CHF (congestive heart failure) History of DVT of lower extremity History of echocardiogram History of edema History of pulmonary embolus (PE) History of steroid therapy Insulin dependent diabetes mellitus Itching Leg cramps Livedo reticularis Morbid (severe) obesity due to excess calories Nicotine dependence, uncomplicated Normal stress echocardiogram Obstructive sleep apnea On home oxygen therapy Open wound Osteoarthritis of right hip Otitis media Patient's noncompliance with other medical treatment and regimen Personal history of thromboembolic disease Post-menopausal Pulmonary embolism Rheumatoid arthritis Shortness of breath Sleep apnea Smoker TIA (transient ischemic attack) Tobacco dependence syndrome Tubal Type 2 diabetes mellitus Wears glasses Home Medications alprazolam 0.5 mg tablet 0.5 mg PO BID PRN PRN Anxiety 12/15/13 [History Last Taken 06/04/22 05:00] atenolol 100 mg tablet 100 mg PO DAILY blood pressure 12/15/13 [History Last Taken 06/04/22 05:00] omeprazole 40 mg capsule,delayed release 40 mg PO DAILY GERD 12/15/13 [History Last Taken 06/03/22] pravastatin 40 mg tablet 40 mg PO QHS cholesterol 03/17/14 [History Last Taken 06/03/22] glimepiride 4 mg tablet 4 mg PO DAILY diabetes 04/23/15 [History Last Taken 06/03/22] docusate sodium 100 mg capsule 200 mg PO BID Constipation 03/10/17 [History Last Taken 06/03/22] pregabalin 300 mg capsule (Lyrica) 300 mg PO BID nerve pain 03/10/17 [History Last Taken 06/03/22] rivaroxaban 20 mg tablet 20 mg PO DAILY blood thinner 03/10/17 [History Last Taken 06/02/22 17:00] quetiapine 100 mg tablet 100 mg PO QHS sleep 12/12/17 [History Last Taken 06/03/22] trazodone 50 mg tablet 50 mg PO QHS sleep 12/13/17 [History Last Taken 06/03/22] montelukast 10 mg tablet 10 mg PO QPM #30 tabs 12/26/20 [Rx Last Taken 06/03/22] multivitamin (Daily Multi-Vitamin tablet) 1 tab PO DAILY 12/26/20 [History Last Taken 06/03/22] bupropion HCl 150 mg tablet,12 hr sustained-release 150 mg PO BID 11/27/21 [History Last Taken 06/03/22] dapagliflozin propanediol 5 mg tablet (Farxiga) 5 mg PO DAILY 11/27/21 [History Last Taken 06/03/22] diclofenac sodium 75 mg tablet,delayed release 75 mg PO BID 11/27/21 [History Last Taken 06/03/22] insulin glargine 100 unit/mL (3 mL) subcutaneous pen (Lantus Solostar U-100 Insulin) 60 unit subcut BID 11/27/21 [History Last Taken 06/03/22 06:00] omega-3 acid ethyl esters 1 gram capsule 2 cap PO BID 11/27/21 [History Last Taken 06/03/22] venlafaxine 150 mg capsule,extended release 24 hr 300 mg PO QHS 11/27/21 [History Last Taken Unknown] furosemide 40 mg tablet 40 mg PO DAILY #30 tabs 04/20/22 [Rx Last Taken 06/03/22] albuterol sulfate 2.5 mg/3 mL (0.083 %) solution for nebulization 2.5 mg (3 mL) inhalation Q6H PRN SHORTNESS OF BREATH #180 vials 04/29/22 [Rx Last Taken 06/04/22] loratadine 10 mg tablet 10 mg PO DAILY #90 tabs 04/29/22 [Rx Last Taken 06/03/22] acetaminophen 650 mg tablet,extended release 1,300 mg PO Q8H 05/31/22 [History Last Taken Unknown] metformin 500 mg tablet,extended release 24 hr 1,000 mg PO BID 05/31/22 [History Last Taken 06/02/22] ferrous sulfate 325 mg (65 mg iron) tablet 325 mg PO DAILY #30 tabs 06/08/22 [Rx Last Taken 06/03/22] insulin lispro 100 unit/mL subcutaneous pen (Humalog KwikPen (U-100) Insulin) See Protocol subcut ACHS #15 mL 06/08/22 [Rx Last Taken Unknown] oxycodone 5 mg tablet 5 mg PO Q6H PRN PRN Pain 4 days #14 tabs 06/08/22 [Rx Last Taken Unknown] polyethylene glycol 3350 17 gram oral powder packet 17 g PO DAILY #0 ea 06/08/22 [Rx Last Taken Unknown] sennosides 8.6 mg-docusate sodium 50 mg tablet (Stool Softener-Stimulant Laxative) 2 tab PO BID #0 tabs 06/08/22 [Rx Last Taken Unknown] guaifenesin 1,200 mg tablet, extended release 12 hr 1,200 mg PO Q12H #60 tabs 12/28/22 [Rx Last Taken Unknown] fluticasone 232 mcg-salmeterol 14 mcg/actuation breath activated powdr (AirDuo RespiClick) 1 inh inhalation BID #1 ea 12/30/22 [Rx Last Taken Unknown] umeclidinium 62.5 mcg/actuation blister powder for inhalation (Incruse Ellipta) 1 inh inhalation DAILY #30 ea 12/30/22 [Rx Last Taken Unknown] albuterol sulfate 90 mcg/actuation aerosol inhaler 2 puff inhalation Q6H PRN shortness of breath or wheezing #18 grams 01/10/23 [Rx Last Taken Unknown] Allergy/AdvReac Type Severity Reaction Status Date / Time enoxaparin sodium Allergy Mild Itching Verified 01/21/23 15:07 [From Lovenox] heparin Allergy Itching Verified 01/21/23 15:07 varenicline [From Chantix] AdvReac Intermediate MENTAL Verified 01/21/23 15:07 ISSUES arthromycin Allergy Mild Itching Uncoded 01/21/23 15:07 Family History Other No pertinent family history Surgical History History of tubal ligation Hx of surgical procedure No pertinent past surgical history Social History Smoking Status: Current every day smoker tobacco type: cigarettes alcohol intake: never substance use type: does not use caffeine: Yes Type: coffee Number of servings: 5 ROS ROS ED Constitutional Constitutional ED: Reports chills and sweats; Denies fever(s) Eyes Eyes: Denies blurry vision or change in vision ENT ENT ED: Denies ear pain or sore throat Cardiovascular Cardiovascular: Denies chest pain, palpitations or racing heartbeat Respiratory/Chest Respiratory/Chest: Reports cough, dyspnea and dyspnea on exertion; Denies sputum Gastrointestinal Gastrointestinal: Denies abdominal pain, constipation, diarrhea, nausea or vomiting Genitourinary Genitourinary ED: Denies dysuria, hematuria or urinary frequency Musculoskeletal Musculoskeletal: Denies arthralgias, myalgias or neck pain Integumentary Denies abscess, Abrasions or rash Neurologic Neurologic: Denies headache(s), paresthesias or weakness Psychiatric Psychiatric: Denies anxiety, depression, suicidal ideation or suicidal thoughts Endocrine Endocrinology: Denies polydipsia or polyuria EXAM Physical Exam Const Vital Signs: 01/21/23 15:07 01/21/23 16:17 01/21/23 16:29 Temperature 96.5 F L Temperature Source Temporal Pulse Rate 79 81 Respiratory Rate 18 22 H Respiratory Effort Short of Breath Respiratory Depth Normal Respiratory Pattern Normal Normal Blood Pressure 160/72 H Blood Pressure Mean 101 Pulse Ox 93 Oxygen Delivery Method Room Air Room Air Oxygen Flow Rate (L/min) 01/21/23 16:29 01/21/23 18:05 01/21/23 19:24 Temperature 98.3 F Temperature Source Oral Pulse Rate 86 82 Respiratory Rate 23 H 20 H Respiratory Effort Respiratory Depth Respiratory Pattern Blood Pressure 120/109 H 143/93 H Blood Pressure Mean 112 109 Pulse Ox 95 90 Oxygen Delivery Method Room Air Nasal Cannula Nasal Cannula Oxygen Flow Rate (L/min) 2 2 01/21/23 19:25 Temperature Temperature Source Pulse Rate 82 Respiratory Rate 21 H Respiratory Effort Respiratory Depth Respiratory Pattern Blood Pressure 143/93 H Blood Pressure Mean 109 Pulse Ox 94 Oxygen Delivery Method Oxygen Flow Rate (L/min) Positive well nourished and obese General Appearance ED: NAD; Negative for pallor Nutritional Appearance: obese HEENT Reports moist mucous membranes Eyes PERRL Neck no lymphadenopathy, supple and no meningeal signs Resp normal respiratory effort Auscultation: wheezes expiratory wheezes Cardio regular rate Rate: tachycardic GI non-tender Extremity normal to inspection General Extremety ED: Negative for edema or tenderness General Extremity: Negative for edema Neuro oriented x3 and CN's II-XII intact bilaterally Sensorium / Orientation: alert Motor Exam: general weakness Psych mental status grossly normal Skin no wounds General Skin Exam: Negative for jaundice or pallor MDM MDM MDM Narrative Medical decision making narrative: 57-year-old male with a history of COPD presenting with wheezing and shortness of breath after being diagnosed with COVID. She is on day 5 currently. She is outside the treatment window for anything. Chest x-ray was obtained and on my interpretation shows no acute process. Patient was given breathing treatments and prednisone. I will ambulate her with pulse ox because the urgent care note states she was 88% although she is 93 here. Patient was ambulated and dropped to 85%. At this point blood work was obtained CBC was obtained to assess white blood cell count, hemoglobin, platelets. BMP to assess renal function and electrolytes. LFTs to assess liver function, high-sensitivity troponin and EKG were obtained to assess for ischemia/dysrhythmia. D-dimer was negative. CBC shows mild leukocytosis at 11.6. Hemoglobin stable at 13.8. Platelets are normal at 227. Renal function and electrolytes within normal limits. LFTs unremarkable. High-sensitivity troponin is 3. EKG on my interpretation shows a normal sinus rhythm with a ventricular rate of 84 bpm without sign of ischemic change or ectopy on my interpretation. Chest x-ray on my interpretation shows what looks like bibasilar infiltrates. D-dimer was elevated so CTA of the chest was obtained which shows what looks like viral pneumonia and the radiologist also states there might be some edema. Given hypoxia the patient will be admitted to the hospital. She was already given steroids. Impression: 1. COVID-19 2. Hypoxia Lab Data Attestation: I reviewed the patient's lab results. Labs: Laboratory Results - last 24 hr 01/21/23 17:16 WBC 11.6 H RBC 5.10 Hgb 13.8 Hct 44.5 MCV 87.3 MCH 27.1 MCHC 31.0 L RDW Std Deviation 48.1 H RDW Coeff of Luiz 15.2 H Plt Count 227 MPV 10.0 Immature Gran % (Auto) 0.300 Neut % (Auto) 59.1 Lymph % (Auto) 32.2 Sawyer % (Auto) 5.2 Eos % (Auto) 2.9 Baso % (Auto) 0.3 Absolute Neuts (auto) 6.8 Absolute Lymphs (auto) 3.72 Nucleated RBC % 0 D-Dimer Quant (PE/DVT) 0.75 H* Sodium 140 Potassium 3.7 Chloride 106 Carbon Dioxide 29.0 Anion Gap 5 BUN 16 Creatinine 0.79 Estim Creat Clear Calc 62.89 Est GFR (MDRD) Af Amer 97 Est GFR (MDRD) Non-Af 80 BUN/Creatinine Ratio 20.3 H Glucose 150 H Calcium 9.4 Total Bilirubin 0.20 AST 22 ALT 55 Alkaline Phosphatase 87 Troponin I High Sens 3 Total Protein 7.4 Albumin 3.6 Globulin 3.8 Albumin/Globulin Ratio 0.9 Radiography Diagnostic Testing: Clinical Impression(s) from Imaging Studies Chest X-Ray 01/21/23 15:45 IMPRESSION: Mild nonspecific interstitial thickening in the lower lobes which may be consistent with viral pneumonia.. Electronically Signed: Deepak Rodriguez MD at 16:49 EDT Reading Location ID and State: [facility] - [place] / [place] Tel [phone], Service support , Chest CTA 01/21/23 17:54 IMPRESSION: Findings which may be consistent with clinical history: 19 pneumonia and possibly superimposed mild pulmonary interstitial edema.. Limited study of the pulmonary arteries without definitive evidence for pulmonary embolus Electronically Signed: Deepak Rodriguez MD at 18:43 EDT , Discharge Plan Triage Chief Complaint: Shortness of Breath ED Provider: Thomas Mayfield Dx/Rx/DC Orders Prescriptions: No Action rivaroxaban 20 MG tablet 20 mg PO DAILY Patient Comments: Blood thinner pregabalin [Lyrica] 300 mg capsule 300 mg PO BID multivitamin [Daily Multi-Vitamin] Tablet 1 tab PO DAILY montelukast 10 mg tablet 10 mg PO QPM Qty: 30 5RF Farxiga 5 mg tablet 5 mg PO DAILY insulin glargine [Lantus Solostar U-100 Insulin] 100 unit/mL (3 mL) insulin pen 60 unit subcut BID omega-3 acid ethyl esters 1 gram capsule 2 cap PO BID diclofenac sodium 75 mg tablet,delayed release (DR/EC) 75 mg PO BID Hold Instructions: Hold it while taking Xarelto. venlafaxine 150 mg capsule,extended release 24hr 300 mg PO QHS bupropion HCl 150 mg tablet sustained-release 12 hr 150 mg PO BID albuterol sulfate 2.5 mg /3 mL (0.083 %) solution for nebulization 2.5 mg INHALATION Q6H PRN (Reason: SHORTNESS OF BREATH ) Qty: 180 3RF loratadine 10 mg tablet 10 mg PO DAILY Qty: 90 3RF atenolol 100 MG tablet 100 mg PO DAILY Patient Comments: Blood pressure/heart rate omeprazole 40 MG capsule,delayed release(DR/EC) 40 mg PO DAILY Patient Comments: Acid reflux alprazolam 0.5 MG tablet 0.5 mg PO BID PRN PRN (Reason: Anxiety) Patient Comments: Anxiety pravastatin 40 MG tablet 40 mg PO QHS Patient Comments: Cholesterol docusate sodium 100 MG capsule 200 mg PO BID Patient Comments: Stool softener glimepiride 4 MG tablet 4 mg PO DAILY Patient Comments: diabetes quetiapine 100 MG tablet 100 mg PO QHS trazodone 50 MG tablet 50 mg PO QHS acetaminophen 650 mg Tablet Extended Release 1,300 mg PO Q8H metformin 500 mg tablet extended release 24 hr 1,000 mg PO BID polyethylene glycol 3350 17 gram Powder In Packet 17 g PO DAILY Qty: 0 0RF Hold Instructions: Pt has been DC'd sennosides-docusate sodium [Stool Softener-Stimulant Laxat] 8.6-50 mg Tablet 2 tab PO BID Qty: 0 0RF insulin lispro [Humalog KwikPen Insulin] 100 unit/mL Insulin Pen See Protocol subcut ACHS Qty: 15 2RF Protocol: 5. Sliding Scale Insulin High Dosing Condition: 150-209 mg/dl = 3 units Condition: 210-259 mg/dl = 6 units Condition: 260-324 mg/dl = 9 units Condition: 325-374 mg/dl = 12 units Condition: 375-409 mg/dl = 14 units Condition: 410-449 mg/dl = 16 units Condition: Greater than 449 call physician Protocol Text: - Use for Total Daily Dose of Insulin 81-120 units - Very insulin resistant or septic patients HIGH DOSING ALGORITHM ferrous sulfate 325 MG tablet 325 mg PO DAILY Qty: 30 0RF Patient Comments: Iron supplement oxycodone 5 mg Tablet 5 mg PO Q6H PRN PRN (Reason: Pain) 4 Days Qty: 14 0RF Hold Instructions: Pt has been DC'd furosemide 40 mg tablet 40 mg PO DAILY Qty: 30 11RF guaifenesin 1,200 mg tablet extended release 12hr 1,200 mg PO Q12H Qty: 60 6RF fluticasone propion-salmeterol [AirDuo RespiClick] 232-14 mcg/actuation aerosol powdr breath activated 1 inh INHALATION BID Qty: 1 6RF Hold Instructions: Pt has been DC'd Incruse Ellipta 62.5 mcg/actuation blister with device 1 inh INHALATION DAILY Qty: 30 6RF albuterol sulfate 90 mcg/actuation HFA aerosol inhaler 2 puff INHALATION Q6H PRN (Reason: shortness of breath or wheezing) Qty: 18 6RF Primary Care Provider: Camilo Sloan Referrals: Camilo Sloan DO [Primary Care Provider] -
[2023-01-21] MEDS: predniSONE 20 MG Tablet 60 MG PO (16:21)
[2023-01-21] MEDS: Ipratropium/Albuterol Sulfate 3 ML AMPUL.NEB INHALATION (16:26)
[2023-01-21] MEDS: Albuterol 2.5 MG/3 ML VIAL.NEB. INHALATION (16:26)
--- NOTE | 2023-01-21 16:55 | EKG12_ITS ---
Test Reason : Blood Pressure : / mmHG Vent. Rate : 084 BPM Atrial Rate : 084 BPM P-R Int : 160 ms QRS Dur : 090 ms QT Int : 412 ms P-R-T Axes : -02 077 063 degrees QTc Int : 486 ms Normal sinus rhythm Nonspecific ST abnormality Abnormal ECG Confirmed by JESUS DEAN, CASE ([id number]), website/blog editor ASAF TOMLIN ([id number]) on 01/24/2023 12:50:22 PM Referred By: Confirmed By:ELIZABETH LEE MD
[2023-01-21 17:28] LABS: Absolute Lymphocyte Count 3.72 X10^3/uL (0.83-4.51); Absolute Neutrophil Count 6.8 X10^3/uL (2.0-7.7); Basophil# 0.03 X10^3/uL; Basophil% 0.3 % (0-1); Eosinophil# 0.33 X10^3/uL; Eosinophils% 2.9 % (0-5); Hematocrit 44.5 % (37-47); Hemoglobin 13.8 g/dL (12.0-15.0); Lymphocyte # 3.72 X10^3/ul (0.83-4.51); Lymphocyte % 32.2 % (19-41); Mean Corpuscular Hgb 27.1 pg (27.0-32.0); Mean Corpuscular Volume 87.3 fL (81-99); Monocyte% 5.2 % (0-10); NRBC Flagged by Analyzer 0 % (0-5); Neutrophil # 6.84 X10^3/uL (2.7-7.7); Neutrophil % 59.1 % (47-70); Platelet Count 227 K/mm3 (150-450); RBC Distribution Width CV 15.2 % (11.6-14.6); RBC Distribution Width SD 48.1 fl (35.1-43.9); White Blood Count 11.6 K/mm3 (4.4-11.0)
[2023-01-21 17:44] LABS: ALB/GLOB Ratio 0.9 RATIO (0.9-2.4); AST(SGOT) 22 U/L (15-37); Alanine Aminotransfer ALT/SGPT 55 U/L (13-56); Albumin, Serum 3.6 g/dL (3.2-5.0); Alkaline Phosphatase 87 U/L (45-117); Anion Gap 5 (5-15); BUN 16 mg/dL (7-18); BUN/Creat Ratio 20.3 RATIO (10-20); Calcium,Total 9.4 mg/dL (8.5-10.1); Chloride 106 mmol/L (98-107); Creatinine, Serum 0.79 mg/dL (0.55-1.02); EST Glomerular Filtration Rate 80 mL/min (>60); Est Glom Filt Rate - Afr Amer 97 mL/min (>60); Estimated Creatinine Clearance 62.89 ml/min; Globulin 3.8 g/dL (2.2-4.2); Glucose 150 mg/dL (74-106); Potassium 3.7 mmol/L (3.5-5.1); Protein, Total 7.4 g/dL (6.4-8.2); Sodium Level 140 mmol/L (136-145)
[2023-01-21 17:52] LABS: D-Dimer Quantitative (DVT/PE) 0.75 FEU/ug/m (0.27-0.49)
--- NOTE | 2023-01-21 17:54 | CT_ITS ---
STUDY: CTA CHEST REASON FOR EXAM: Female, 57 years old. hypoxia RADIATION DOSAGE (If Supplied By Facility): CTDIvol = ( 23.97 ) mGy, DLP = ( 751.29 ) mGycm TECHNIQUE: The examination was performed with the intravenous administration of IV 100mL Isovue-370. Post-processing of the angiographic images was performed, with multiplanar reformation and 3D reconstruction. Individualized dose optimization techniques were used for this CT. COMPARISON: None. FINDINGS: Examination of the pulmonary arteries is limited due to linear artifacts in the segmental and subsegmental vessels due to motion artifact. There is no definitive evidence for intraluminal clot however if strong clinical suspicion for pulmonary embolus Doppler sonogram of deep venous system of lower extremities recommended for further assessment . Normal thoracic aorta and visualized great vessels. There is no demonstrated aortic dissection. Borderline cardiomegaly.. Normal mediastinum. Normal hilar regions. Normal visualized trachea and bronchi. The lungs are well expanded. There is diffuse interstitial thickening more pronounced the lower lobes with focal and diffuse groundglass opacity which may be consistent with Covid 19 pneumonia although cannot definitively exclude coexisting pulmonary interstitial edema. Normal pleura. Normal chest wall structures. Dorsal spine demonstrates degenerative changes. Old left rib fractures. Enlarged nonspecific fatty infiltrated liver CT/CTA Chest W/WO Contrast IMPRESSION: Findings which may be consistent with clinical history: 19 pneumonia and possibly superimposed mild pulmonary interstitial edema.. Limited study of the pulmonary arteries without definitive evidence for pulmonary embolus Electronically Signed: Deepak Rodriguez MD at 18:43 EDT ,
[2023-01-21 18:23] LABS: Troponin-I HS 3 pg/mL (3.0-54.0)
--- NOTE | 2023-01-21 20:04 | HP.PCM.HOS_ITS ---
[facility] - General General Date of Admission: 01/21/23 Date of Service: 01/21/23 Chief Complaint: shortness of breath and wheezing for 4 days. HPI Narrative SARIKA URRUTIA, is a 57 F with multiple comorbidities came to ER with feeling of shortness of breath and wheezing for 4 days. Prior to that patient started with sore throat, headache, loss of appetite about 5 days ago and could not eat or drink much. She has a history of COPD and smokes about half pack per day for long time. She has chest tightness all around but denies chest pressure or sharp pain. She also has cough which is mainly dry and feels mucus/phlegm is stuck in the chest. Denies fever. She was tested rapid antigen COVID positive about 1 day ago. He had COVID antigen negative therefore PCR ordered. Chest x-ray and CTA initially which shows more bronchitis, groundglass opacity but negative for PE. It is reported as diffuse interstitial thickening more pronounced in lower lobes with focal and diffuse groundglass opacity consistent with viral pneumonia, COVID-19. Possible coexisting pulmonary interstitial edema. In ED, labs and vitals and EKG reviewed. Twelve-lead EKG done in the ER showed normal sinus rhythm with nonspecific opacity at 84 bpm. No significant change from previous EKG of April 2022. [facility] Medical History Anemia Anxiety Anxiety disorder Arthritis Asthma Back pain Bronchitis Cardiology follow-up encounter Chronic back pain Chronic cough Chronic hypoxemic respiratory failure Chronic sinusitis COPD exacerbation COPD, frequent exacerbations Costal chondritis CPAP (continuous positive airway pressure) dependence Depression Diabetes DVT (deep venous thrombosis) Emphysema, unspecified Essential hypertension Excessive bleeding Fibromyalgia Gastric reflux GERD (gastroesophageal reflux disease) Healthcare-associated pneumonia History of CHF (congestive heart failure) History of DVT of lower extremity History of echocardiogram History of edema History of pulmonary embolus (PE) History of steroid therapy Insulin dependent diabetes mellitus Itching Leg cramps Livedo reticularis Morbid (severe) obesity due to excess calories Nicotine dependence, uncomplicated Normal stress echocardiogram Obstructive sleep apnea On home oxygen therapy Open wound Osteoarthritis of right hip Otitis media Patient's noncompliance with other medical treatment and regimen Personal history of thromboembolic disease Post-menopausal Pulmonary embolism Rheumatoid arthritis Shortness of breath Sleep apnea Smoker TIA (transient ischemic attack) Tobacco dependence syndrome Tubal Type 2 diabetes mellitus Wears glasses Home Medications alprazolam 0.5 mg tablet 0.5 mg PO BID PRN PRN Anxiety 12/15/13 [History Last Taken 06/04/22 05:00] atenolol 100 mg tablet 100 mg PO DAILY blood pressure 12/15/13 [History Last Taken 06/04/22 05:00] omeprazole 40 mg capsule,delayed release 40 mg PO DAILY GERD 12/15/13 [History Last Taken 06/03/22] pravastatin 40 mg tablet 40 mg PO QHS cholesterol 03/17/14 [History Last Taken 06/03/22] glimepiride 4 mg tablet 4 mg PO DAILY diabetes 04/23/15 [History Last Taken 06/03/22] docusate sodium 100 mg capsule 200 mg PO BID Constipation 03/10/17 [History Last Taken 06/03/22] pregabalin 300 mg capsule (Lyrica) 300 mg PO BID nerve pain 03/10/17 [History Last Taken 06/03/22] rivaroxaban 20 mg tablet 20 mg PO DAILY blood thinner 03/10/17 [History Last Taken 06/02/22 17:00] quetiapine 100 mg tablet 100 mg PO QHS sleep 12/12/17 [History Last Taken 06/03/22] trazodone 50 mg tablet 50 mg PO QHS sleep 12/13/17 [History Last Taken 06/03/22] montelukast 10 mg tablet 10 mg PO QPM #30 tabs 12/26/20 [Rx Last Taken 06/03/22] multivitamin (Daily Multi-Vitamin tablet) 1 tab PO DAILY 12/26/20 [History Last Taken 06/03/22] bupropion HCl 150 mg tablet,12 hr sustained-release 150 mg PO BID 11/27/21 [History Last Taken 06/03/22] dapagliflozin propanediol 5 mg tablet (Farxiga) 5 mg PO DAILY 11/27/21 [History Last Taken 06/03/22] diclofenac sodium 75 mg tablet,delayed release 75 mg PO BID 11/27/21 [History Last Taken 06/03/22] insulin glargine 100 unit/mL (3 mL) subcutaneous pen (Lantus Solostar U-100 Insulin) 60 unit subcut BID 11/27/21 [History Last Taken 06/03/22 06:00] omega-3 acid ethyl esters 1 gram capsule 2 cap PO BID 11/27/21 [History Last Taken 06/03/22] venlafaxine 150 mg capsule,extended release 24 hr 300 mg PO QHS 11/27/21 [History Last Taken Unknown] furosemide 40 mg tablet 40 mg PO DAILY #30 tabs 04/20/22 [Rx Last Taken 06/03/22] albuterol sulfate 2.5 mg/3 mL (0.083 %) solution for nebulization 2.5 mg (3 mL) inhalation Q6H PRN SHORTNESS OF BREATH #180 vials 04/29/22 [Rx Last Taken 06/04/22] loratadine 10 mg tablet 10 mg PO DAILY #90 tabs 04/29/22 [Rx Last Taken 06/03/22] acetaminophen 650 mg tablet,extended release 1,300 mg PO Q8H 05/31/22 [History Last Taken Unknown] metformin 500 mg tablet,extended release 24 hr 1,000 mg PO BID 05/31/22 [History Last Taken 06/02/22] ferrous sulfate 325 mg (65 mg iron) tablet 325 mg PO DAILY #30 tabs 06/08/22 [Rx Last Taken 06/03/22] insulin lispro 100 unit/mL subcutaneous pen (Humalog KwikPen (U-100) Insulin) See Protocol subcut ACHS #15 mL 06/08/22 [Rx Last Taken Unknown] oxycodone 5 mg tablet 5 mg PO Q6H PRN PRN Pain 4 days #14 tabs 06/08/22 [Rx Last Taken Unknown] polyethylene glycol 3350 17 gram oral powder packet 17 g PO DAILY #0 ea 06/08/22 [Rx Last Taken Unknown] sennosides 8.6 mg-docusate sodium 50 mg tablet (Stool Softener-Stimulant Laxative) 2 tab PO BID #0 tabs 06/08/22 [Rx Last Taken Unknown] guaifenesin 1,200 mg tablet, extended release 12 hr 1,200 mg PO Q12H #60 tabs 12/28/22 [Rx Last Taken Unknown] fluticasone 232 mcg-salmeterol 14 mcg/actuation breath activated powdr (AirDuo RespiClick) 1 inh inhalation BID #1 ea 12/30/22 [Rx Last Taken Unknown] umeclidinium 62.5 mcg/actuation blister powder for inhalation (Incruse Ellipta) 1 inh inhalation DAILY #30 ea 12/30/22 [Rx Last Taken Unknown] albuterol sulfate 90 mcg/actuation aerosol inhaler 2 puff inhalation Q6H PRN shreyas rtness of breath or wheezing #18 grams 01/10/23 [Rx Last Taken Unknown] Allergy/AdvReac Type Severity Reaction Status Date / Time enoxaparin sodium Allergy Mild Itching Verified 01/21/23 15:07 [From Lovenox] heparin Allergy Itching Verified 01/21/23 15:07 varenicline [From Chantix] AdvReac Intermediate MENTAL Verified 01/21/23 15:07 ISSUES arthromycin Allergy Mild Itching Uncoded 01/21/23 15:07 Family History Other No pertinent family history Surgical History History of tubal ligation Hx of surgical procedure No pertinent past surgical history Social History Smoking Status: Current every day smoker tobacco type: cigarettes alcohol intake: never substance use type: does not use caffeine: Yes Type: coffee Number of servings: 5 ROS ROS Narrative Constitutional: Reports fatigue and weakness. No fever. HEENT: Reports systems reviewed and no addt'l complaints, except as documented Respiratory/Chest: Dyspnea on minimal to mild exertion. Rest as described in HPI CVS: Denies chest pressure or anginal-like symptoms. Denies CAD or cardiac stents. Gastrointestinal: Nausea, loss of appetite. Denies coffee ground emesis, hematemesis or vomiting Genitourinary: Denies burning urination or new urinary tract symptoms Musculoskeletal: Denies acute joint pain or limited range of motion. No acute injury Neurologic: Denies seizure-like symptoms. skin: No ulcer. No rash Endocrinology: Reports systems reviewed and no addt'l complaints, except as documented Hematologic/Lymphatic: Reports systems reviewed and no addt'l complaints, except as documented Rest 14 ROS are negative except as mentioned in HPI Vital Signs Vital Signs Vital Signs: 01/21/23 15:07 01/21/23 16:17 01/21/23 16:29 Temperature 96.5 F L Temperature Source Temporal Pulse Rate 79 81 Respiratory Rate 18 22 H Respiratory Effort Short of Breath Respiratory Depth Normal Respiratory Pattern Normal Normal Blood Pressure 160/72 H Blood Pressure Mean 101 Pulse Ox 93 Oxygen Delivery Method Room Air Room Air Oxygen Flow Rate (L/min) 01/21/23 16:29 01/21/23 18:05 01/21/23 19:24 Temperature 98.3 F Temperature Source Oral Pulse Rate 86 82 Respiratory Rate 23 H 20 H Respiratory Effort Respiratory Depth Respiratory Pattern Blood Pressure 120/109 H 143/93 H Blood Pressure Mean 112 109 Pulse Ox 95 90 Oxygen Delivery Method Room Air Nasal Cannula Nasal Cannula Oxygen Flow Rate (L/min) 2 2 01/21/23 19:25 01/21/23 20:03 Temperature Temperature Source Pulse Rate 82 82 Respiratory Rate 21 H 20 H Respiratory Effort Respiratory Depth Respiratory Pattern Blood Pressure 143/93 H 119/48 L Blood Pressure Mean 109 71 Pulse Ox 94 92 Oxygen Delivery Method Nasal Cannula Oxygen Flow Rate (L/min) 2 Weight Weight: 264 lb 5.348 oz Body Mass Index (BMI) 48.3 Physical Exam Narrative General: Alert, Oriented x3, Cooperative, morbid obesity BMI 47.4 kg/m? HEENT: Atraumatic, PERRLA, EOMI, Normocephalic Oral: Deep oropharyngeal structures could not be visualized. Oral mucosa dry. Neck: Supple, No JVD, Negative Carotid Bruits Lungs: Air entry diminished in bilateral lung bases. Bilateral wheezing. Dyspnea on exertion. Cardiovascular: Regular rate, Regular Rhythm, Normal S1, Normal S2, No murmurs Abdomen: Bowel Sounds Present, Soft, Non Tender, Non-Distended : No renal angle tenderness. No suprapubic tenderness. Extremities: No edema, Capillary Refill Less than 3 Seconds Skin: No rashes, No breakdown Musculoskeletal: No Tenderness to Palpation of Joints or Extremities. ROM restricted. Neurological: Cranial nerves II-XII grossly intact, DTR 2+/4. No acute focal neurological deficit. Psych/Mental Status: Flat affect. Results Lab / Micro Data 01/21/23 17:16 01/21/23 17:16 Labs: Laboratory Results - last 24 hr 01/21/23 17:16: WBC 11.6 H, RBC 5.10, Hgb 13.8, Hct 44.5, MCV 87.3, MCH 27.1, MCHC 31.0 L, RDW Std Deviation 48.1 H, RDW Coeff of Luiz 15.2 H, Plt Count 227, MPV 10.0, Immature Gran % (Auto) 0.300, Neut % (Auto) 59.1, Lymph % (Auto) 32.2, [place] % (Auto) 5.2, Eos % (Auto) 2.9, Baso % (Auto) 0.3, Absolute Neuts (auto) 6.8, Absolute Lymphs (auto) 3.72, Nucleated RBC % 0, D-Dimer Quant (PE/DVT) 0.75 H*, Sodium 140, Potassium 3.7, Chloride 106, Carbon Dioxide 29.0, Anion Gap 5, BUN 16, Creatinine 0.79, Estim Creat Clear Calc 62.89, Est GFR (MDRD) Af Amer 97, Est GFR (MDRD) Non-Af 80, BUN/Creatinine Ratio 20.3 H, Glucose 150 H, Calcium 9.4, Total Bilirubin 0.20, AST 22, ALT 55, Alkaline Phosphatase 87, Troponin I High Sens 3, Total Protein 7.4, Albumin 3.6, Globulin 3.8, [place] min/Globulin Ratio 0.9 Micro: Microbiology 01/21/23 17:16 Nasal Secretion SARS-CoV-2 Antigen (Rapid) - Final Radiology Impression Chest X-Ray 01/21/23 15:45 IMPRESSION: Mild nonspecific interstitial thickening in the lower lobes which may be consistent with viral pneumonia.. Electronically Signed: Deepak Rodriguez MD at 16:49 EDT , Chest CTA 01/21/23 17:54 IMPRESSION: Findings which may be consistent with clinical history: 19 pneumonia and possibly superimposed mild pulmonary interstitial edema.. Limited study of the pulmonary arteries without definitive evidence for pulmonary embolus Electronically Signed: Deepak Rodriguez MD at 18:43 EDT , Assessment & Plan Assessment/Plan (1) COPD exacerbation: PLAN: Plan 57-year-old female is being admitted for subacute onset of shortness of breath with progressively worsening for 4 to 5 days per 1. COPD/asthma bronchitis acute exacerbation with history of continued cigarette smoking: Patient is being admitted in PCU. She has POC rapid SARS-CoV-2 antigen positive on 01/21/2023. There is suspicion of COVID therefore COVID-19 PCR ordered. Respiratory panel ordered. Sputum culture and urinary antigens ordered. Blood cultures x2 ordered by ER physician. CTA chest shows no PE but diffuse interstitial thickening and groundglass opacities suspicion for viral pneumonia. She did not had COVID-vaccine. 2. Acute on chronic HFpEF: Lasix 40 mg IV once daily, first dose ordered for pulmonary interstitial edema. Patient on furosemide 40 mg daily at home. She had dobutamine stress echo done in January 2020 reported negative. 2D echo in February 2019 reported EF 55% with normal LV systolic function trivial MR, TR and PI. We will repeat 2D echo tomorrow AM. Troponin and EKG normal therefore I do not suspect ACS and she does not have anginal quality chest pain or pressure. 3. Diabetes mellitus type 2: Glucose is 150. Accu-Cheks before meals and at bedtime and cover with Humalog sliding scale 4. Chronic right nonpressure great toe diabetic foot ulcer status post left fo ot Sam arthroplasty on 06/04/2022. Patient follows Dr. Kulkarni. She has history of MRSA positive on bone culture obtained on 01/06/2023 and vancomycin sensitive Enterococcus faecalis and MSSE. She stated she follows regularly in wound center with Dr. Kulkarni and recently completed antibiotic. 5. Hypertension, peripheral artery disease, hyperlipidemia, GERD, anxiety, depression, history of PEs and DVTs: Patient on Xarelto and continued. Multiple comorbidities complicates the present care and expect difficult and delay recovery. Continue monitor and adjust medications as needed Living will/advanced directive/end of life care: Patient does not have living will or advanced directive. Her is next of kin but does not have diagnosis of power of managing attorney for health. After discussion of benefits/risks procedures involved with full code, DNR CC arrest and DNR CC, the patient s tated that she wants intubation as a last resort if everything other fails. She was elusive for intubation ventilator and stated intubation/ventilator only for reversible causes or if it can save her life. Patient does want artificial life support including intubation, tube feed, ventilator and/chest compression, central venous catheter, vasopressor and DC shock if needed Total time spent in [id number] encounter in discussion of advanced directive 17 minutes. Microbiology Past 72 Hours 01/21/23 17:16 Nasal Secretion SARS-CoV-2 Antigen (Rapid) - Final Laboratory Results 01/21/23 17:16: WBC 11.6 H, RBC 5.10, Hgb 13.8, Hct 44.5, MCV 87.3, MCH 27.1, MCHC 31.0 L, RDW Std Deviation 48.1 H, RDW Coeff of Luiz 15.2 H, Plt Count 227, MPV 10.0, Immature Gran % (Auto) 0.300, Neut % (Auto) 59.1, Lymph % (Auto) 32.2, [place] % (Auto) 5.2, Eos % (Auto) 2.9, Baso % (Auto) 0.3, Absolute Neuts (auto) 6.8, Absolute Lymphs (auto) 3.72, Nucleated RBC % 0, D-Dimer Quant (PE/DVT) 0.75 H* , Sodium 140, Potassium 3.7, Chloride 106, Carbon Dioxide 29.0, Anion Gap 5, BUN 16, Creatinine 0.79, Estim Creat Clear Calc 62.89, Est GFR (MDRD) Af Amer 97, Est GFR (MDRD) Non-Af 80, BUN/Creatinine Ratio 20.3 H, Glucose 150 H, Calcium 9.4, Total Bilirubin 0.20, AST 22, ALT 55, Alkaline Phosphatase 87, Troponin I High Sens 3, Total Protein 7.4, Albumin 3.6, Globulin 3.8, Albumin/Globulin Ratio 0.9 Charges/Coding Visit Charges Inpatient E&M: 81025 Init Hosp L3 Procedures Hospitalists Procedures: 16250 Advncd Care Plan 30 Min
[2023-01-21] MEDS: traZODone 50 MG Tablet PO (23:38)
[2023-01-21] MEDS: Venlafaxine XR 150 MG Capsule 300 MG PO (23:39)
[2023-01-21] MEDS: Pravastatin 40 MG Tablet PO (23:40)
[2023-01-21] MEDS: Methylprednisolone Sod Succ 40 MG/ML VIAL IV (23:40)
[2023-01-21] MEDS: guaiFENesin/D-Methorphan TAB.SR.12H 2 TABLET PO (23:40)
[2023-01-21] MEDS: QUEtiapine 100 MG Tablet PO (23:41)
[2023-01-21] MEDS: Senna/Docusate Sodium 1 Tablet 2 TABLET PO (23:42)
[2023-01-21] MEDS: Montelukast 10 MG Tablet PO (23:42)
[2023-01-21] MEDS: buPROPion (SR) 150 MG Tablet.SA PO (23:42)
[2023-01-21] MEDS: Acetaminophen 500 MG Tablet 1000 MG PO (23:43)
[2023-01-21] MEDS: Furosemide 40 MG/4 ML Vial IV (23:44)
[2023-01-22] VITALS (14 sets, daily range): BP systolic 129–153; BP diastolic 51–85; PULSE 63–83; RESP 12–22; TEMP 36.1–36.8; O2SAT 90–95
[2023-01-22] MEDS: Insulin Lispro 100 UNIT/ML INSULN.PEN SC ×5 (00:02→21:09)
[2023-01-22] MEDS: Insulin Glargine-YFGN 100 UNIT/ML Pen 50 UNIT SC ×3 (00:02→21:08)
[2023-01-22] MEDS: 0.9% Saline Lock 10 ML Syringe IV ×2 (00:03→05:46)
[2023-01-22 00:06] LABS: Bedside Glucose 235 mg/dL (74-106)
[2023-01-22] MEDS: Pregabalin 75 MG Capsule 300 MG PO ×3 (00:38→21:08)
[2023-01-22] MEDS: Ipratropium/Albuterol Sulfate 3 ML AMPUL.NEB INHALATION ×5 (02:16→19:53)
[2023-01-22] MEDS: Methylprednisolone Sod Succ 40 MG/ML VIAL IV ×3 (05:45→21:12)
[2023-01-22] MEDS: Acetaminophen 500 MG Tablet 1000 MG PO ×3 (05:45→16:33)
--- NOTE | 2023-01-22 06:09 | CPS ---
Pt started on sleep lab machine 16 full face mask with 2L bled in.
[2023-01-22 07:16] LABS: Bedside Glucose 226 mg/dL (74-106)
[2023-01-22 08:10] LABS: Absolute Lymphocyte Count 1.54 X10^3/uL (0.83-4.51); Basophil# 0.01 X10^3/uL; Basophil% 0.1 % (0-1); Hematocrit 44.3 % (37-47); Hemoglobin 13.7 g/dL (12.0-15.0); Lymphocyte # 1.54 X10^3/ul (0.83-4.51); Lymphocyte % 19.8 % (19-41); Mean Corp Hgb Conc 30.9 g/dL (32-36); Mean Corpuscular Hgb 26.9 pg (27.0-32.0); Mean Platelet Vol. 10.5 fl (6.2-12.0); Monocyte# 0.15 X10^3/uL; Monocyte% 1.9 % (0-10); NRBC Flagged by Analyzer 0 % (0-5); Neutrophil # 6.04 X10^3/uL (2.7-7.7); Neutrophil % 77.7 % (47-70); Platelet Count 244 K/mm3 (150-450); RBC Distribution Width CV 15.5 % (11.6-14.6); Red Blood Count 5.09 M/mm3 (4.2-5.4); White Blood Count 7.8 K/mm3 (4.4-11.0)
[2023-01-22 08:28] LABS: Anion Gap 4 (5-15); BUN 13 mg/dL (7-18); BUN/Creat Ratio 19.5 RATIO (10-20); Calcium,Total 9.7 mg/dL (8.5-10.1); Chloride 106 mmol/L (98-107); Creatinine, Serum 0.67 mg/dL (0.55-1.02); EST Glomerular Filtration Rate 97 mL/min (>60); Est Glom Filt Rate - Afr Amer 117 mL/min (>60); Estimated Creatinine Clearance 74.15 ml/min; Glucose 218 mg/dL (74-106); Potassium 4.4 mmol/L (3.5-5.1); Sodium Level 138 mmol/L (136-145); Thyroid Stim Hormone (TSH) 0.51 uIU/mL (0.358-3.74)
--- NOTE | 2023-01-22 09:26 | CASEMGMT ---
DAMIEN REVELES Assessment: Face to Face with pt for initial transition planning/care coordination assessment. DAMIEN REVELES introduced self and role at [facility], pt voices understanding and consents to assessment. Pt is A&O x4 and answers all questions appropriately at this time. Pt lying in bed with oxygen on in no distress. Care providers, pharmacy, and demographics verified/updated. Admitting Dx: COVID positive, COPD exac PCP:Nathalia Specialists:Cayla, pod; Rodrick, pulm; WHG, cardio Preferred Pharmacy: [facility] Retail Insurance: [facility] Community Plan HARESH Prescription Benefit: yes LNOK: Ranjit Irby, Living Arrangements: Pt lives with and dtr in a two story home with 1 step to enter. Pt reports she is I in ADL's and denies concerns at home. She does laundry, prepares meals and they grocery shop together. Transportation: Pt provides transportation. DME:oxygen through [employer], pt states she wears PRN only. She does not have any portable tanks. Asked her to call to order more, she is agreeable. Pt has a pox, BGM and insulin with sufficient supplies, cane, rollator, w/c and CPAP. HHC/SNF: Has had HHC in the past, unsure of agency. [address] Pt states no concerns with going home at time of dc. Pt has a wound on her right foot. She states she sees weekly for it and does not do dressing changes in between. Green sheet on chart for oxygen should pt qualify to send updated script if needing more than PRN. Unable to verify rx. Pt states no further concerns/needs. CM to follow. Advised pt to ask CM if any further question/concerns/needs arise, voices understanding. Pt Goal: Home Plan: Home, follow for oxygen needs to send updated rx
[2023-01-22] MEDS: Multivitamins,Therapeutic Tablet 1 TABLET PO (10:46)
[2023-01-22] MEDS: Pantoprazole Sodium 40 MG Tablet PO (10:46)
[2023-01-22] MEDS: guaiFENesin/D-Methorphan TAB.SR.12H 2 TABLET PO ×2 (10:46→21:07)
[2023-01-22] MEDS: Glimepiride 4 MG Tablet PO (10:46)
[2023-01-22] MEDS: Azithromycin 250 MG Tablet 500 MG PO (10:47)
[2023-01-22] MEDS: Ferrous Sulfate 325 MG Tablet PO (10:47)
[2023-01-22] MEDS: Senna/Docusate Sodium 1 Tablet 2 TABLET PO ×2 (10:47→21:07)
[2023-01-22] MEDS: buPROPion (SR) 150 MG Tablet.SA PO ×2 (10:47→21:07)
[2023-01-22] MEDS: Atenolol 100 MG Tablet PO (10:48)
[2023-01-22] MEDS: Rivaroxaban 20 MG Tablet PO (10:48)
[2023-01-22] MEDS: Furosemide 40 MG/4 ML Vial IV (10:48)
[2023-01-22] MEDS: Loratadine 10 MG Tablet PO (10:48)
[2023-01-22] MEDS: Empagliflozin 10 MG Tablet PO (10:48)
[2023-01-22] MEDS: ALPRAZolam 0.5 MG Tablet PO ×2 (10:56→21:07)
[2023-01-22 11:25] LABS: Bedside Glucose 224 mg/dL (74-106)
--- NOTE | 2023-01-22 13:44 | PN_ITS ---
Subjective Subjective Patient seen and examined. She was admitted with a complaint of shortness of breath and has been managed for COPD exacerbation. She had tested positive for COVID at an outside hospital with the antibody test but when she came in PCR test is negative. She did test positive for rhinovirus. She feels much better today and is actually asking to go home. She does admit to some mild wheezing. She denies any chest pain or palpitations, dizziness or nausea or vomiting. Review of systems otherwise negative. Objective Data Objective Data Vital Signs: Vital Signs Temp Pulse Resp BP Pulse Ox O2 Del Method O2 Flow Rate 97.0 F L 76 22 H 153/75 H 93 Nasal Cannula 2 01/22/23 10:40 01/22/23 11:14 01/22/23 11:14 01/22/23 10:40 01/22/23 10:40 01/22/23 10:40 01/22/23 10:40 Oxygen Flow Rate (L/min) 2 Oxygen Delivery Method Nasal Cannula Weight: 259 lb 4.218 oz Body Mass Index (BMI) 47.4 Intake & Output: Intake and Output for Last 24 Hours 01/20/23 01/21/23 01/22/23 23:59 23:59 23:59 Intake Total 220 / 220 60 / 60 Output Total 400 / 400 180 / 180 Balance -180 / -180 -120 / -120 Lab / Micro Data 01/22/23 07:40 01/22/23 07:40 Labs: Laboratory Results - last 24 hr 01/21/23 17:16: WBC 11.6 H, RBC 5.10, Hgb 13.8, Hct 44.5, MCV 87.3, MCH 27.1, MCHC 31.0 L, RDW Std Deviation 48.1 H, RDW Coeff of Luiz 15.2 H, Plt Count 227, MPV 10.0, Immature Gran % (Auto) 0.300, Neut % (Auto) 59.1, Lymph % (Auto) 32.2, [place] % (Auto) 5.2, Eos % (Auto) 2.9, Baso % (Auto) 0.3, Absolute Neuts (auto) 6.8, Absolute Lymphs (auto) 3.72, Nucleated RBC % 0, D-Dimer Quant (PE/DVT) 0.75 H*, Sodium 140, Potassium 3.7, Chloride 106, Carbon Dioxide 29.0, Anion Gap 5, BUN 16, Creatinine 0.79, Estim Creat Clear Calc 62.89, Est GFR (MDRD) Af Amer 97, Est GFR (MDRD) Non-Af 80, BUN/Creatinine Ratio 20.3 H, Glucose 150 H, Calcium 9.4, Total Bilirubin 0.20, AST 22, ALT 55, Alkaline Phosphatase 87, Troponin I High Sens 3, Total Protein 7.4, Albumin 3.6, Globulin 3.8, Albumin/Globulin Ratio 0.9 01/21/23 23:35: POC Glucose 235 H 01/22/23 06:55: POC Glucose 226 H 01/22/23 07:40: WBC 7.8, RBC 5.09, Hgb 13.7, Hct 44.3, MCV 87.0, MCH 26.9 L, MCHC 30.9 L, RDW Std Deviation 49.0 H, RDW Coeff of Luiz 15.5 H, Plt Count 244, MPV 10.5, Immature Gran % (Auto) 0.500, Neut % (Auto) 77.7 H, Lymph % (Auto) 19.8, [place] % (Auto) 1.9, Eos % (Auto) 0.0, Baso % (Auto) 0.1, Absolute Neuts (auto) 6.0, Absolute Lymphs (auto) 1.54, Nucleated RBC % 0, Sodium 138, [place] um 4.4, Chloride 106, Carbon Dioxide 28.0, Anion Gap 4 L, BUN 13, Creatinine 0.67, Estim Creat Clear Calc 74.15, Est GFR (MDRD) Af Amer 117, Est GFR (MDRD) Non-Af 97, BUN/Creatinine Ratio 19.5, Glucose 218 H, Calcium 9.7, TSH 0.51 01/22/23 10:59: POC Glucose 224 H Micro: Microbiology 01/21/23 20:03 Mucosa - Nasopharyngeal Respiratory Panel (PCR) - Final Rhinovirus 01/21/23 19:50 Mucosa - Nasopharyngeal Coronavirus COVID-19 PCR - Final 01/21/23 17:16 Nasal Secretion SARS-CoV-2 Antigen (Rapid) - Final Radiography Diagnostic Testing: Radiology Impression Chest X-Ray 01/21/23 15:45 IMPRESSION: Mild nonspecific interstitial thickening in the lower lobes which may be consistent with viral pneumonia.. Electronically Signed: Deepak Rodriguez MD at 16:49 EDT Reading Location ID and State: [place] / [place] Tel [phone], Service support , Chest CTA 01/21/23 17:54 IMPRESSION: Findings which may be consistent with clinical history: 19 pneumonia and possibly superimposed mild pulmonary interstitial edema.. Limited study of the pulmonary arteries without definitive evidence for pulmonary embolus Electronically Signed: Deepak Rodriguez MD at 18:43 EDT Reading Location ID and State: [place] / [place] Tel [phone], Service support , Physical Exam Const alert, oriented x3 and no apparent distress Constitutional Narrative: Super morbid obesity. General Appearance: cooperative and well developed HEENT normocephalic, head/scalp atraumatic and moist oral mucous membranes Eyes PERRL and EOMs intact bilaterally Neck no lymphadenopathy and supple Lymph Lymphatic: no lymphadenopathy noted and no lymphedema noted Resp Resp Narrative: Mildly diminished breath sounds bibasally. Bilateral wheezing. No crackles. On 2 L of oxygen by nasal cannula. Cardio regular rate, regular rhythm, S1 normal heart sound, S2 normal heart sound and no murmurs GI normal to inspection, nondistended, normoactive bowel sounds, soft to palpation, non-tender and non-distended Extremity normal capillary refill and no clubbing, cyanosis or edema General Extremity: no tenderness to palpation of joints or extremities Skin General Skin Exam: no breakdown Neuro CN's II-XII intact bilaterally, no focal motor deficits, no sensory deficits noted and deep tendon reflexes 2+ bilaterally Motor Exam: strength 5/5 throughout and general weakness Psych thought process normal and cooperative Appearance: appropriate Assessment & Plan Assessment/Plan (1) COPD exacerbation: PLAN: Plan #Acute on chronic COPD exacerbation due to RSV infection. * COVID PCR test was negative. RSV test was positive. * Breathing treatments bronchodilators. Titrate oxygen to maintain saturation above 90%. * CT of the chest was negative for PE but showed bronchitis and groundglass opacities. Continue breathing treatments bronchodilators and IV Solu-Medrol. * On p.o. azithromycin. * #Acute on chronic heart failure preserved ejection fraction: Has known EF of 55%. On IV Lasix. Monitor intake and output. Fluid restriction to 1500 daily. #Type 2 diabetes mellitus: Insulin sliding scale. Accu-Cheks ACHS. On Lantus 50 units twice daily as well as Jardiance and glimepiride #Hypertension: On atenolol #Hyperlipidemia: On statin #History of DVT and PE: On Xarelto #Super morbid obesity: BMI is 47.4. Complicates acute care, expected recovery and prognosis. #Peripheral artery disease: #Depression: On venlafaxine DVT prophylaxis: Already on Xarelto. * Charges/Coding Visit Charges Inpatient E&M: 74830 Subs Hosp L2
[2023-01-22] MEDS: oxyCODONE 5 MG Tablet PO (14:22)
[2023-01-22 16:59] LABS: Bedside Glucose 206 mg/dL (74-106)
[2023-01-22] MEDS: Venlafaxine XR 150 MG Capsule 300 MG PO (21:06)
[2023-01-22] MEDS: Pravastatin 40 MG Tablet PO (21:07)
[2023-01-22] MEDS: Montelukast 10 MG Tablet PO (21:07)
[2023-01-22] MEDS: QUEtiapine 100 MG Tablet PO (21:07)
[2023-01-22] MEDS: traZODone 50 MG Tablet PO (21:07)
[2023-01-22 21:37] LABS: Bedside Glucose 230 mg/dL (74-106)
[2023-01-23] VITALS (12 sets, daily range): BP systolic 145–158; BP diastolic 58–66; PULSE 56–75; RESP 12–20; TEMP 36.1–36.5; O2SAT 85–95
[2023-01-23] MEDS: Acetaminophen 500 MG Tablet 1000 MG PO ×4 (00:46→16:28)
[2023-01-23] MEDS: Ipratropium/Albuterol Sulfate 3 ML AMPUL.NEB INHALATION ×6 (03:10→23:10)
--- NOTE | 2023-01-23 04:26 | CPS ---
Patient refuses PEP and wishes to not be bothered about it
[2023-01-23] MEDS: Insulin Lispro 100 UNIT/ML INSULN.PEN SC ×4 (06:22→21:07)
[2023-01-23] MEDS: Methylprednisolone Sod Succ 40 MG/ML VIAL IV ×3 (06:23→21:06)
[2023-01-23 06:50] LABS: Bedside Glucose 200 mg/dL (74-106)
[2023-01-23 07:43] LABS: Absolute Lymphocyte Count 2.74 X10^3/uL (0.83-4.51); Absolute Neutrophil Count 4.9 X10^3/uL (2.0-7.7); Basophil# 0.01 X10^3/uL; Basophil% 0.1 % (0-1); Hematocrit 45.3 % (37-47); Hemoglobin 14.1 g/dL (12.0-15.0); Lymphocyte # 2.74 X10^3/ul (0.83-4.51); Lymphocyte % 32.9 % (19-41); Mean Corp Hgb Conc 31.1 g/dL (32-36); Mean Corpuscular Hgb 27.3 pg (27.0-32.0); Mean Corpuscular Volume 87.8 fL (81-99); Mean Platelet Vol. 10.4 fl (6.2-12.0); Monocyte# 0.66 X10^3/uL; Monocyte% 7.9 % (0-10); NRBC Flagged by Analyzer 0 % (0-5); Neutrophil # 4.88 X10^3/uL (2.7-7.7); Neutrophil % 58.7 % (47-70); Platelet Count 270 K/mm3 (150-450); RBC Distribution Width CV 15.9 % (11.6-14.6); RBC Distribution Width SD 50.4 fl (35.1-43.9); Red Blood Count 5.16 M/mm3 (4.2-5.4); White Blood Count 8.3 K/mm3 (4.4-11.0)
[2023-01-23 08:02] LABS: Anion Gap 5 (5-15); BUN 28 mg/dL (7-18); BUN/Creat Ratio 38.6 RATIO (10-20); Calcium,Total 9.6 mg/dL (8.5-10.1); Chloride 105 mmol/L (98-107); Creatinine, Serum 0.72 mg/dL (0.55-1.02); EST Glomerular Filtration Rate 88 mL/min (>60); Est Glom Filt Rate - Afr Amer 107 mL/min (>60); Glucose 180 mg/dL (74-106); Potassium 4.4 mmol/L (3.5-5.1); Sodium Level 138 mmol/L (136-145)
[2023-01-23] MEDS: Insulin Glargine-YFGN 100 UNIT/ML Pen 50 UNIT SC ×2 (09:41→21:07)
[2023-01-23] MEDS: Furosemide 40 MG/4 ML Vial IV (09:41)
[2023-01-23] MEDS: Azithromycin 250 MG Tablet 500 MG PO (09:42)
[2023-01-23] MEDS: Glimepiride 4 MG Tablet PO (09:42)
[2023-01-23] MEDS: Pregabalin 75 MG Capsule 300 MG PO ×2 (09:42→21:08)
[2023-01-23] MEDS: Pantoprazole Sodium 40 MG Tablet PO (09:43)
[2023-01-23] MEDS: Multivitamins,Therapeutic Tablet 1 TABLET PO (09:44)
[2023-01-23] MEDS: Rivaroxaban 20 MG Tablet PO (09:44)
[2023-01-23] MEDS: Atenolol 100 MG Tablet PO (09:44)
[2023-01-23] MEDS: Senna/Docusate Sodium 1 Tablet 2 TABLET PO ×2 (09:44→21:09)
[2023-01-23] MEDS: Ferrous Sulfate 325 MG Tablet PO (09:45)
[2023-01-23] MEDS: Loratadine 10 MG Tablet PO (09:45)
[2023-01-23] MEDS: guaiFENesin/D-Methorphan TAB.SR.12H 2 TABLET PO ×2 (09:45→21:06)
[2023-01-23] MEDS: Empagliflozin 10 MG Tablet PO (09:45)
[2023-01-23] MEDS: buPROPion (SR) 150 MG Tablet.SA PO ×2 (09:45→21:06)
[2023-01-23] MEDS: oxyCODONE 5 MG Tablet PO (09:51)
[2023-01-23] MEDS: ALPRAZolam 0.5 MG Tablet PO ×2 (09:51→21:08)
--- NOTE | 2023-01-23 10:41 | PCM.PROGNOTE ---
Subjective Subjective Patient seen and examined. She feels more tired today. She denies feeling more short of breath, and denies any cough, chest pain, palpitations, dizziness, nausea, vomiting or any other complaints. Review of systems is otherwise negative Objective Data Objective Data Vital Signs: Vital Signs Temp Pulse Resp BP Pulse Ox O2 Del Method O2 Flow Rate 97.0 F L 70 18 158/65 H 94 Nasal Cannula 2 01/23/23 09:30 01/23/23 09:30 01/23/23 09:30 01/23/23 09:30 01/23/23 09:30 01/23/23 09:30 01/23/23 09:30 Oxygen Flow Rate (L/min) 2 Oxygen Delivery Method Nasal Cannula Weight: 259 lb 4.218 oz Body Mass Index (BMI) 47.4 Intake & Output: Intake and Output for Last 24 Hours 01/21/23 01/22/23 01/23/23 23:59 23:59 23:59 Intake Total 220 / 220 760 / 1000 600 / 600 Output Total 400 / 400 180 / 580 925 / 925 Balance -180 / -180 580 / 420 -325 / -325 Lab / Micro Data 01/23/23 07:00 01/23/23 07:00 Labs: Laboratory Results - last 24 hr 01/22/23 10:59: POC Glucose 224 H 01/22/23 16:32: POC Glucose 206 H 01/22/23 21:06: POC Glucose 230 H 01/23/23 06:20: POC Glucose 200 H 01/23/23 07:00: WBC 8.3, RBC 5.16, Hgb 14.1, Hct 45.3, MCV 87.8, MCH 27.3, MCHC 31.1 L, RDW Std Deviation 50.4 H, RDW Coeff of Luiz 15.9 H, Plt Count 270, MPV 10.4, Immature Gran % (Auto) 0.400, Neut % (Auto) 58.7, Lymph % (Auto) 32.9, [place] % (Auto) 7.9, Eos % (Auto) 0.0, Baso % (Auto) 0.1, Absolute Neuts (auto) 4.9, Absolute Lymphs (auto) 2.74, Nucleated RBC % 0, Sodium 138, Potassium 4.4, Chloride 105, Carbon Dioxide 28.0, Anion Gap 5, BUN 28 H, Creatinine 0.72, Estim Creat Clear Calc 69.00, Est GFR (MDRD) Af Amer 107, Est GFR (MDRD) Non-Af 88, BUN/Creatinine Ratio 38.6 H, Glucose 180 H, Calcium 9.6 Micro: Microbiology 01/21/23 20:03 Mucosa - Nasopharyngeal Respiratory Panel (PCR) - Final Rhinovirus 01/21/23 19:50 Mucosa - Nasopharyngeal Coronavirus COVID-19 PCR - Final 01/21/23 17:16 Nasal Secretion SARS-CoV-2 Antigen (Rapid) - Final Physical Exam Const alert, oriented x3 and no apparent distress Constitutional Narrative: Super morbid obesity. General Appearance: cooperative and well developed HEENT normocephalic, head/scalp atraumatic and moist oral mucous membranes Eyes PERRL and EOMs intact bilaterally Neck no lymphadenopathy and supple Lymph Lymphatic: no lymphadenopathy noted and no lymphedema noted Resp Resp Narrative: Mildly diminished breath sounds bibasally. Bilateral wheezing. No crackles. On 2 L of oxygen by nasal cannula. Cardio regular rate, regular rhythm, S1 normal heart sound, S2 normal heart sound and no murmurs GI normal to inspection, nondistended, normoactive bowel sounds, soft to palpation, non-tender and non-distended Extremity normal capillary refill and no clubbing, cyanosis or edema General Extremity: no tenderness to palpation of joints or extremities Skin General Skin Exam: no breakdown Neuro CN's II-XII intact bilaterally, no focal motor deficits, no sensory deficits noted and deep tendon reflexes 2+ bilaterally Motor Exam: strength 5/5 throughout and general weakness Psych thought process normal and cooperative Appearance: appropriate Assessment & Plan Assessment/Plan (1) COPD exacerbation: PLAN: Plan #Acute on chronic COPD exacerbation due to RSV infection. COVID PCR test was negative. RSV test was positive. Breathing treatments bronchodilators. Titrate oxygen to maintain saturation above 90%. CT of the chest was negative for PE but showed bronchitis and groundglass opacities. Continue breathing treatments bronchodilators and IV Solu-Medrol. On p.o. azithromycin. #Acute on chronic heart failure preserved ejection fraction: Has known EF of 55%. On IV Lasix. Monitor intake and output. Fluid restriction to 1500 daily. #Type 2 diabetes mellitus: Insulin sliding scale. Accu-Cheks ACHS. On Lantus 50 units twice daily as well as Jardiance and glimepiride #Hypertension: On atenolol #Hyperlipidemia: On statin #History of DVT and PE: On Xarelto #Super morbid obesity: BMI is 47.4. Complicates acute care, expected recovery and prognosis. #Peripheral artery disease: #Depression: On venlafaxine DVT prophylaxis: Already on Xarelto. Disposition: patient feels too weak to go home today. WIll keep overnight and dc tomorrow Charges/Coding Visit Charges Inpatient E&M: 74485 Subs Hosp L2
[2023-01-23 11:45] LABS: Bedside Glucose 304 mg/dL (74-106)
[2023-01-23] MEDS: 0.9% Saline Lock 10 ML Syringe IV ×2 (13:11→21:09)
[2023-01-23 16:49] LABS: Bedside Glucose 207 mg/dL (74-106)
[2023-01-23] MEDS: Montelukast 10 MG Tablet PO (21:06)
[2023-01-23] MEDS: QUEtiapine 100 MG Tablet PO (21:06)
[2023-01-23] MEDS: traZODone 50 MG Tablet PO (21:06)
[2023-01-23] MEDS: Venlafaxine XR 150 MG Capsule 300 MG PO (21:06)
[2023-01-23] MEDS: Pravastatin 40 MG Tablet PO (21:06)
[2023-01-23 21:39] LABS: Bedside Glucose 217 mg/dL (74-106)
[2023-01-24] VITALS (10 sets, daily range): BP systolic 131–140; BP diastolic 49–77; PULSE 54–63; RESP 12–20; TEMP 36.4–36.7; O2SAT 87–96
[2023-01-24] MEDS: Acetaminophen 500 MG Tablet 1000 MG PO ×3 (00:57→13:01)
--- NOTE | 2023-01-24 02:47 | CPS ---
Patient wishes to not be asked about PEP
[2023-01-24] MEDS: Ipratropium/Albuterol Sulfate 3 ML AMPUL.NEB INHALATION ×3 (03:32→14:58)
[2023-01-24] MEDS: Methylprednisolone Sod Succ 40 MG/ML VIAL IV ×2 (06:04→13:01)
[2023-01-24] MEDS: Insulin Lispro 100 UNIT/ML INSULN.PEN SC ×3 (06:05→17:16)
[2023-01-24 06:30] LABS: Bedside Glucose 185 mg/dL (74-106)
[2023-01-24 07:01] LABS: Absolute Lymphocyte Count 3.77 X10^3/uL (0.83-4.51); Absolute Neutrophil Count 6.2 X10^3/uL (2.0-7.7); Basophil# 0.03 X10^3/uL; Basophil% 0.3 % (0-1); Hematocrit 49.7 % (37-47); Hemoglobin 15.1 g/dL (12.0-15.0); Lymphocyte # 3.77 X10^3/ul (0.83-4.51); Lymphocyte % 35.4 % (19-41); Mean Corp Hgb Conc 30.4 g/dL (32-36); Mean Corpuscular Hgb 26.8 pg (27.0-32.0); Mean Corpuscular Volume 88.3 fL (81-99); Mean Platelet Vol. 9.9 fl (6.2-12.0); Monocyte# 0.64 X10^3/uL; NRBC Flagged by Analyzer 0 % (0-5); Neutrophil # 6.15 X10^3/uL (2.7-7.7); Neutrophil % 57.7 % (47-70); Platelet Count 310 K/mm3 (150-450); RBC Distribution Width CV 15.8 % (11.6-14.6); RBC Distribution Width SD 50.7 fl (35.1-43.9); Red Blood Count 5.63 M/mm3 (4.2-5.4); White Blood Count 10.7 K/mm3 (4.4-11.0)
[2023-01-24 07:31] LABS: Anion Gap 6 (5-15); BUN 38 mg/dL (7-18); BUN/Creat Ratio 48.7 RATIO (10-20); Calcium,Total 9.6 mg/dL (8.5-10.1); Chloride 102 mmol/L (98-107); Creatinine, Serum 0.78 mg/dL (0.55-1.02); EST Glomerular Filtration Rate 81 mL/min (>60); Est Glom Filt Rate - Afr Amer 98 mL/min (>60); Glucose 180 mg/dL (74-106); Potassium 4.3 mmol/L (3.5-5.1); Sodium Level 135 mmol/L (136-145)
[2023-01-24] MEDS: Atenolol 100 MG Tablet PO (08:10)
[2023-01-24] MEDS: Azithromycin 250 MG Tablet 500 MG PO (08:10)
[2023-01-24] MEDS: ALPRAZolam 0.5 MG Tablet PO (08:10)
[2023-01-24] MEDS: Glimepiride 4 MG Tablet PO (08:10)
[2023-01-24] MEDS: Empagliflozin 10 MG Tablet PO (08:10)
[2023-01-24] MEDS: Senna/Docusate Sodium 1 Tablet 2 TABLET PO (08:10)
[2023-01-24] MEDS: Loratadine 10 MG Tablet PO (08:11)
[2023-01-24] MEDS: Rivaroxaban 20 MG Tablet PO (08:11)
[2023-01-24] MEDS: Multivitamins,Therapeutic Tablet 1 TABLET PO (08:11)
[2023-01-24] MEDS: 0.9% Saline Lock 10 ML Syringe IV ×2 (08:12→13:02)
[2023-01-24] MEDS: guaiFENesin/D-Methorphan TAB.SR.12H 2 TABLET PO (08:12)
[2023-01-24] MEDS: buPROPion (SR) 150 MG Tablet.SA PO (08:12)
[2023-01-24] MEDS: Furosemide 40 MG/4 ML Vial IV (08:12)
[2023-01-24] MEDS: Insulin Glargine-YFGN 100 UNIT/ML Pen 50 UNIT SC (08:13)
[2023-01-24] MEDS: Ferrous Sulfate 325 MG Tablet PO (08:14)
[2023-01-24] MEDS: Pregabalin 75 MG Capsule 300 MG PO (10:44)
[2023-01-24] MEDS: Pantoprazole Sodium 40 MG Tablet PO (10:44)
[2023-01-24 11:13] LABS: Bedside Glucose 268 mg/dL (74-106)
--- NOTE | 2023-01-24 11:52 | WOUNDNOTE ---
wound photo: right pinky lateral
--- NOTE | 2023-01-24 14:00 | CASEMGMT ---
RN CM updated that patient will discharge to day and will need oxygen with portability. Script received and sent to [facility] and requested portable tank be delivered to patient's room. RN CM discuss discharge needs with patient. Patient denied further needs at discharge.
--- NOTE | 2023-01-24 14:00 | PCM.DC ---
Discharge Instructions Diet Discharge Diet: Low fat / Low cholesterol and Carb Control Diet Activity Discharge Activity: Return to Normal Activity Dressing / Incision Call your doctor if you observe: Fever of 101 or Higher, Shortness of breath, Dizziness, Fainting spells, Swelling in the ankles, Chest pain and Increased palpitations (irregular heartbeat) Follow Up Care Test Results: Test results from this visit will be discussed in further detail at your follow-up appointment, if applicable. Discharge Plan Admission Admit Date/Time: 01/21/23 19:28 Attending Provider: Kenny López Primary Care Provider: Camilo Sloan Consulting Providers: Ashok Robles; Stella Brooke Instructions Additional Instructions / Restrictions: Given your rhinovirus and your possible COPD exacerbation with bronchitis will discharge on steroids, as discussed she will need to monitor your blood sugars closely and make insulin adjustments as steroids can raise your blood sugar. Discharge Orders/Prescriptions Prescriptions: New prednisone 20 mg tablet 40 mg PO DAILY Qty: 14 0RF Continued rivaroxaban 20 MG tablet 20 mg PO DAILY Patient Comments: Blood thinner pregabalin [Lyrica] 300 mg capsule 300 mg PO BID multivitamin [Daily Multi-Vitamin] Tablet 1 tab PO DAILY montelukast 10 mg tablet 10 mg PO QPM Qty: 30 5RF Farxiga 5 mg tablet 5 mg PO DAILY insulin glargine [Lantus Solostar U-100 Insulin] 100 unit/mL (3 mL) insulin pen 60 unit subcut BID omega-3 acid ethyl esters 1 gram capsule 2 cap PO BID diclofenac sodium 75 mg tablet,delayed release (DR/EC) 75 mg PO BID Hold Instructions: Hold it while taking Xarelto. venlafaxine 150 mg capsule,extended release 24hr 300 mg PO QHS bupropion HCl 150 mg tablet sustained-release 12 hr 150 mg PO BID albuterol sulfate 2.5 mg /3 mL (0.083 %) solution for nebulization 2.5 mg INHALATION Q6H PRN (Reason: SHORTNESS OF BREATH ) Qty: 180 3RF loratadine 10 mg tablet 10 mg PO DAILY Qty: 90 3RF atenolol 100 MG tablet 100 mg PO DAILY Patient Comments: Blood pressure/heart rate omeprazole 40 MG capsule,delayed release(DR/EC) 40 mg PO DAILY Patient Comments: Acid reflux alprazolam 0.5 MG tablet 0.5 mg PO BID PRN PRN (Reason: Anxiety) Patient Comments: Anxiety pravastatin 40 MG tablet 40 mg PO QHS Patient Comments: Cholesterol docusate sodium 100 MG capsule 200 mg PO BID Patient Comments: Stool softener glimepiride 4 MG tablet 4 mg PO DAILY Patient Comments: diabetes quetiapine 100 MG tablet 100 mg PO QHS trazodone 50 MG tablet 50 mg PO QHS acetaminophen 650 mg Tablet Extended Release 1,300 mg PO Q8H metformin 500 mg tablet extended release 24 hr 1,000 mg PO BID polyethylene glycol 3350 17 gram Powder In Packet 17 g PO DAILY Qty: 0 0RF Hold Instructions: Pt has been DC'd sennosides-docusate sodium [Stool Softener-Stimulant Laxat] 8.6-50 mg Tablet 2 tab PO BID Qty: 0 0RF insulin lispro [Humalog KwikPen Insulin] 100 unit/mL Insulin Pen See Protocol subcut ACHS Qty: 15 2RF Protocol: 5. Sliding Scale Insulin High Dosing Condition: 150-209 mg/dl = 3 units Condition: 210-259 mg/dl = 6 units Condition: 260-324 mg/dl = 9 units Condition: 325-374 mg/dl = 12 units Condition: 375-409 mg/dl = 14 units Condition: 410-449 mg/dl = 16 units Condition: Greater than 449 call physician Protocol Text: - Use for Total Daily Dose of Insulin 81-120 units - Very insulin resistant or septic patients HIGH DOSING ALGORITHM ferrous sulfate 325 MG tablet 325 mg PO DAILY Qty: 30 0RF Patient Comments: Iron supplement oxycodone 5 mg Tablet 5 mg PO Q6H PRN PRN (Reason: Pain) 4 Days Qty: 14 0RF Hold Instructions: Pt has been DC'd furosemide 40 mg tablet 40 mg PO DAILY Qty: 30 11RF guaifenesin 1,200 mg tablet extended release 12hr 1,200 mg PO Q12H Qty: 60 6RF fluticasone propion-salmeterol [AirDuo RespiClick] 232-14 mcg/actuation aerosol powdr breath activated 1 inh INHALATION BID Qty: 1 6RF Hold Instructions: Pt has been DC'd Incruse Ellipta 62.5 mcg/actuation blister with device 1 inh INHALATION DAILY Qty: 30 6RF albuterol sulfate 90 mcg/actuation HFA aerosol inhaler 2 puff INHALATION Q6H PRN (Reason: shortness of breath or wheezing) Qty: 18 6RF Referrals / Follow Up: Camilo Sloan DO [Primary Care Provider] - 01/31/23 1:30 pm (Appointment is in the [place] office) Disposition Disposition (needs filled in before D/C Order can be placed): Home, Self Care
--- NOTE | 2023-01-24 14:34 | DS.PCM_ITS ---
Providers Date of Admission: 01/21/23 Primary Care Physician: Dr. Camilo Sloan, Consultations 01/21/23 21:41 Consult: Onc/Wound/asset management analyst Routine Comment: Reason for Consult:: Right foot ulcer. Reason For Visit: COVID POSITIVE, COPD EXA Diagnosis Discharge Diagnosis (1) COPD exacerbation: Status: Chronic Code(s): J44.1 - Chronic obstructive pulmonary disease with (acute) exacerbation Medications at Discharge Home Medications alprazolam 0.5 mg tablet 0.5 mg PO BID PRN PRN Anxiety 12/15/13 atenolol 100 mg tablet 100 mg PO DAILY blood pressure 12/15/13 omeprazole 40 mg capsule,delayed release 40 mg PO DAILY GERD 12/15/13 pravastatin 40 mg tablet 40 mg PO QHS cholesterol 03/17/14 glimepiride 4 mg tablet 4 mg PO DAILY diabetes 04/23/15 docusate sodium 100 mg capsule 200 mg PO BID Constipation 03/10/17 pregabalin 300 mg capsule (Lyrica) 300 mg PO BID nerve pain 03/10/17 rivaroxaban 20 mg tablet 20 mg PO DAILY blood thinner 03/10/17 quetiapine 100 mg tablet 100 mg PO QHS sleep 12/12/17 trazodone 50 mg tablet 50 mg PO QHS sleep 12/13/17 montelukast 10 mg tablet 10 mg PO QPM allergies #30 tabs 12/26/20 multivitamin (Daily Multi-Vitamin tablet) 1 tab PO DAILY vitamin 12/26/20 bupropion HCl 150 mg tablet,12 hr sustained-release 150 mg PO BID mental health 11/27/21 dapagliflozin propanediol 5 mg tablet (Farxiga) 5 mg PO DAILY diabetes 11/27/21 diclofenac sodium 75 mg tablet,delayed release 75 mg PO BID 11/27/21 insulin glargine 100 unit/mL (3 mL) subcutaneous pen (Lantus Solostar U-100 Insulin) 60 unit subcut BID diabetes 11/27/21 omega-3 acid ethyl esters 1 gram capsule 2 cap PO BID supplement 11/27/21 venlafaxine 150 mg capsule,extended release 24 hr 300 mg PO QHS mental health 11/27/21 furosemide 40 mg tablet 40 mg PO DAILY diabetic #30 tabs 04/20/22 albuterol sulfate 2.5 mg/3 mL (0.083 %) solution for nebulization 2.5 mg (3 mL) inhalation Q6H PRN SHORTNESS OF BREATH #180 vials 04/29/22 loratadine 10 mg tablet 10 mg PO DAILY allergies #90 tabs 04/29/22 acetaminophen 650 mg tablet,extended release 1,300 mg PO Q8H PAIN 05/31/22 metformin 500 mg tablet,extended release 24 hr 1,000 mg PO BID diabetes 05/31/22 ferrous sulfate 325 mg (65 mg iron) tablet 325 mg PO DAILY supplement #30 tabs 06/08/22 insulin lispro 100 unit/mL subcutaneous pen (Humalog KwikPen (U-100) Insulin) See Protocol subcut ACHS diabetes #15 mL 06/08/22 oxycodone 5 mg tablet 5 mg PO Q6H PRN PRN Pain 4 days #14 tabs 06/08/22 polyethylene glycol 3350 17 gram oral powder packet 17 g PO DAILY #0 ea 06/08/22 sennosides 8.6 mg-docusate sodium 50 mg tablet (Stool Softener-Stimulant Laxative) 2 tab PO BID laxative #0 tabs 06/08/22 guaifenesin 1,200 mg tablet, extended release 12 hr 1,200 mg PO Q12H cough #60 tabs 12/28/22 fluticasone 232 mcg-salmeterol 14 mcg/actuation breath activated powdr (AirDuo RespiClick) 1 inh inhalation BID #1 ea 12/30/22 umeclidinium 62.5 mcg/actuation blister powder for inhalation (Incruse Ellipta) 1 inh inhalation DAILY breathing #30 ea 12/30/22 albuterol sulfate 90 mcg/actuation aerosol inhaler 2 puff inhalation Q6H PRN shortness of breath or wheezing #18 grams 01/10/23 prednisone 20 mg tablet 40 mg (2 x 20 mg) PO DAILY #14 tabs 01/24/23 Hospital Course Operations None Procedures None Summary of Care Provided Minutes Spent on Discharge: 35 Hospital Course: Per HPI: SARIKA URRUTIA, is a 57 F with multiple comorbidities came to ER with feeling of shortness of breath and wheezing for 4 days. Prior to that patient started with sore throat, headache, loss of appetite about 5 days ago and could not eat or drink much. She has a history of COPD and smokes about half pack per day for long time. She has chest tightness all around but denies chest pressure or sharp pain. She also has cough which is mainly dry and feels mucus/phlegm is stuck in the chest. Denies fever. She was tested rapid antigen COVID positive about 1 day ago. He had COVID antigen negative therefore PCR ordered. Chest x-ray and CTA initially which shows more bronchitis, groundglass opacity but negative for PE. It is reported as diffuse interstitial thickening more pronounced in lower lobes with focal and diffuse groundglass opacity consistent with viral pneumonia, COVID-19. Possible coexisting pulmonary interstitial edema. In ED, labs and vitals and EKG reviewed. Twelve-lead EKG done in the ER showed normal sinus rhythm with nonspecific opacity at 84 bpm. No significant change from previous EKG of April 2022. Hospital Course: 1. Acute COPD exacerbation secondary to rhinovirus infection?57-year-old female who does have a history of COPD as well as other cardiac issues presented to the hospital with increasing shortness of breath and wheezing. Initially she had a COVID test that did come back positive so she had a confirmatory PCR which was negative. Respiratory panel did come back positive for rhinovirus. She did complete 3 days of azithromycin and was placed on steroids. She is supposed to have oxygen at home that she does not wear frequently and she had an ambulatory pulse ox today on the day of discharge that demonstrated need of 2 to 3 L nasal cannula both at rest and with activity. She does follow-up with her range scientist next week as well as her primary care doctor. I discussed with her the plan for discharge today she expressed understanding and responded to g oing home and would like to go home today. I did discuss with her the need to monitor her blood sugars closely as she will be on steroids and she can adjust her insulin as needed. Of note she does not have a history of heart failure as her last echo demonstrated normal EF and no diastolic dysfunction. 2. Type 2 diabetes, hypertension, hyperlipidemia, history of DVT and PE, super morbid obesity, peripheral artery disease, depression are chronic medical conditions which complicate her care. Her home medications were continued where appropriate Physical Exam Narrative General: Alert, Oriented x3, Cooperative, No apparent distress, morbidly obese HEENT: Atraumatic, PERRLA, EOMI, Normocephalic Oral: Moist Mucosa Neck: Supple, No JVD Lungs: Diminished, Normal air movement, No rhonchi, No wheeze, No rales Cardiovascular: Regular rate, Regular Rhythm, Normal S1, Normal S2, No murmurs Abdomen: Soft, Non Tender, Non-Distended, No Hepato-splenomegaly Extremities: No edema, Capillary Refill Less than 3 Seconds Skin: Right pinky toe was dressed Musculoskeletal: No Tenderness to Palpation of Joints or Extremities Neurological: Cranial nerves II-XII grossly intact, Motor Exam 5/5 strength t hroughout, Sensory exam intact to light touch and pain Psych/Mental Status: Normal Affect, Appropriate Weight / BMI Weight Weight: 259 lb 4.218 oz Body Mass Index (BMI) 47.4 ABG / Lab / Microbiology Data 01/24/23 06:25 01/24/23 06:25 Laboratory: Laboratory Results - last 24 hr 01/23/23 16:27: POC Glucose 207 H 01/23/23 21:01: POC Glucose 217 H 01/24/23 06:01: POC Glucose 185 H 01/24/23 06:25: WBC 10.7, RBC 5.63 H, Hgb 15.1 H, Hct 49.7 H, MCV 88.3, MCH 26.8 L, MCHC 30.4 L, RDW Std Deviation 50.7 H, RDW Coeff of Luiz 15.8 H, Plt Count 310, MPV 9.9, Immature Gran % (Auto) 0.600, Neut % (Auto) 57.7, Lymph % (Auto) 35.4, [place] % (Auto) 6.0, Eos % (Auto) 0.0, Baso % (Auto) 0.3, Absolute Neuts (auto) 6.2, Absolute Lymphs (auto) 3.77, Nucleated RBC % 0, Sodium 135 L, Potassium 4.3, Chloride 102, Carbon Dioxide 27.0, Anion Gap 6, BUN 38 H, Creatinine 0.78, Estim Creat Clear Calc 63.70, Est GFR (MDRD) Af Amer 98, Est GFR (MDRD) Non-Af 81, BUN/Creatinine Ratio 48.7 H, Glucose 180 H, Calcium 9.6 01/24/23 10:52: POC Glucose 268 H Microbiology: Microbiology 01/21/23 17:32 Blood Culture (Wb) - Anticubital Left Blood Culture - Preliminary No growth in 48 hours. 01/21/23 17:16 Blood Culture (Wb) - Anticubital Left Blood Culture - Preliminary No growth in 48 hours. 01/21/23 20:03 Mucosa - Nasopharyngeal Respiratory Panel (PCR) - Final Rhinovirus 01/21/23 19:50 Mucosa - Nasopharyngeal Coronavirus COVID-19 PCR - Final 01/21/23 17:16 Nasal Secretion SARS-CoV-2 Antigen (Rapid) - Final D/C Instructions Discharge Diet: Low fat / Low cholesterol and Carb Control Diet Call your doctor if you observe: Fever of 101 or Higher, Shortness of breath, Dizziness, Fainting spells, Swelling in the ankles, Chest pain and Increased palpitations (irregular heartbeat) Meaningful Use Info Meaningful Use Diagnoses (Choose all that apply): None applicable Discharge Plan Admission Admit Date/Time: 01/21/23 19:28 Attending Provider: Kenny López Primary Care Provider: Camilo Sloan Consulting Providers: Ashok Robles; Stella Brooke Instructions Additional Instructions / Restrictions: Given your rhinovirus and your possible COPD exacerbation with bronchitis will discharge on steroids, as discussed she will need to monitor your blood sugars closely and make insulin adjustments as steroids can raise your blood sugar. Discharge Orders/Prescriptions Prescriptions: New prednisone 20 mg tablet 40 mg PO DAILY Qty: 14 0RF Continued rivaroxaban 20 MG tablet 20 mg PO DAILY Patient Comments: Blood thinner pregabalin [Lyrica] 300 mg capsule 300 mg PO BID multivitamin [Daily Multi-Vitamin] Tablet 1 tab PO DAILY montelukast 10 mg tablet 10 mg PO QPM Qty: 30 5RF Farxiga 5 mg tablet 5 mg PO DAILY insulin glargine [Lantus Solostar U-100 Insulin] 100 unit/mL (3 mL) insulin pen 60 unit subcut BID omega-3 acid ethyl esters 1 gram capsule 2 cap PO BID diclofenac sodium 75 mg tablet,delayed release (DR/EC) 75 mg PO BID Hold Instructions: Hold it while taking Xarelto. venlafaxine 150 mg capsule,extended release 24hr 300 mg PO QHS bupropion HCl 150 mg tablet sustained-release 12 hr 150 mg PO BID albuterol sulfate 2.5 mg /3 mL (0.083 %) solution for nebulization 2.5 mg INHALATION Q6H PRN (Reason: SHORTNESS OF BREATH ) Qty: 180 3RF loratadine 10 mg tablet 10 mg PO DAILY Qty: 90 3RF atenolol 100 MG tablet 100 mg PO DAILY Patient Comments: Blood pressure/heart rate omeprazole 40 MG capsule,delayed release(DR/EC) 40 mg PO DAILY Patient Comments: Acid reflux alprazolam 0.5 MG tablet 0.5 mg PO BID PRN PRN (Reason: Anxiety) Patient Comments: Anxiety pravastatin 40 MG tablet 40 mg PO QHS Patient Comments: Cholesterol docusate sodium 100 MG capsule 200 mg PO BID Patient Comments: Stool softener glimepiride 4 MG tablet 4 mg PO DAILY Patient Comments: diabetes quetiapine 100 MG tablet 100 mg PO QHS trazodone 50 MG tablet 50 mg PO QHS acetaminophen 650 mg Tablet Extended Release 1,300 mg PO Q8H metformin 500 mg tablet extended release 24 hr 1,000 mg PO BID polyethylene glycol 3350 17 gram Powder In Packet 17 g PO DAILY Qty: 0 0RF Hold Instructions: Pt has been DC'd sennosides-docusate sodium [Stool Softener-Stimulant Laxat] 8.6-50 mg Tablet 2 tab PO BID Qty: 0 0RF insulin lispro [Humalog KwikPen Insulin] 100 unit/mL Insulin Pen See Protocol subcut ACHS Qty: 15 2RF Protocol: 5. Sliding Scale Insulin High Dosing Condition: 150-209 mg/dl = 3 units Condition: 210-259 mg/dl = 6 units Condition: 260-324 mg/dl = 9 units Condition: 325-374 mg/dl = 12 units Condition: 375-409 mg/dl = 14 units Condition: 410-449 mg/dl = 16 units Condition: Greater than 449 call physician Protocol Text: - Use for Total Daily Dose of Insulin 81-120 units - Very insulin resistant or septic patients HIGH DOSING ALGORITHM ferrous sulfate 325 MG tablet 325 mg PO DAILY Qty: 30 0RF Patient Comments: Iron supplement oxycodone 5 mg Tablet 5 mg PO Q6H PRN PRN (Reason: Pain) 4 Days Qty: 14 0RF Hold Instructions: Pt has been DC'd furosemide 40 mg tablet 40 mg PO DAILY Qty: 30 11RF guaifenesin 1,200 mg tablet extended release 12hr 1,200 mg PO Q12H Qty: 60 6RF fluticasone propion-salmeterol [AirDuo RespiClick] 232-14 mcg/actuation aerosol powdr breath activated 1 inh INHALATION BID Qty: 1 6RF Hold Instructions: Pt has been DC'd Incruse Ellipta 62.5 mcg/actuation blister with device 1 inh INHALATION DAILY Qty: 30 6RF albuterol sulfate 90 mcg/actuation HFA aerosol inhaler 2 puff INHALATION Q6H PRN (Reason: shortness of breath or wheezing) Qty: 18 6RF Referrals / Follow Up: Camilo Sloan DO [Primary Care Provider] - 01/31/23 1:30 pm (Appointment is in the [place] office) Disposition Disposition (needs filled in before D/C Order can be placed): Home, Self Care Charges/Coding Visit Charges Inpatient E&M: 34446 Disch Hosp >30min
[2023-01-24 17:37] LABS: Bedside Glucose 221 mg/dL (74-106)
== END 2023-01-24 18:27 | disposition home or self-care (01) | DRG 140 ==
LOC: ED 16:36 → PCU 19:49
PROVIDERS: Student in an Organized Health Care Education/Training Program; Admitting Provider Internal Medicine; Emergency Provider Student in an Organized Health Care Education/Training Program; PCP Preventive Medicine Occupational Medicine; Visit Provider Family Medicine
DX: J44.1 Chronic obstructive pulmonary disease with (acute) exacerbation (principal); B34.8 Other viral infections of unspecified site; E11.51 Type 2 diabetes mellitus with diabetic peripheral angiopathy without gangrene; Z68.42 Body mass index [BMI] 45.0-49.9, adult; Z79.4 Long term (current) use of insulin; E66.01 Morbid (severe) obesity due to excess calories; I10 Essential (primary) hypertension; F32.A Depression, unspecified; F17.210 Nicotine dependence, cigarettes, uncomplicated; E78.5 Hyperlipidemia, unspecified; K21.9 Gastro-esophageal reflux disease without esophagitis; F41.9 Anxiety disorder, unspecified; Z79.01 Long term (current) use of anticoagulants; Z79.51 Long term (current) use of inhaled steroids; Z79.84 Long term (current) use of oral hypoglycemic drugs; Z79.899 Other long term (current) drug therapy; Z86.711 Personal history of pulmonary embolism; Z86.718 Personal history of other venous thrombosis and embolism; Z86.73 Personal history of transient ischemic attack (TIA), and cerebral infarction without residual deficits
CPT/HCPCS: 36415; 71046; 71275; 80048; 80053; 82962; 84443; 84484; 85025; 85379; 87040; 87633; 87635; 87811; 93005; 94002; 94003; 94640; 94762; 97110; 97162; 97165; 97530; 97535; 97802; 99285; Q9967; A4216; J1940

== ENCOUNTER 2023-03-11 09:43 | Emergency (ER) | payer MEDICAID, SELFPAY ==
[2023-03-11 09:44] VITALS: BP 127/78; PULSE 72; RESP 22; TEMP 37.2; O2SAT 95; BMI 47.5
--- NOTE | 2023-03-11 10:10 | ED.VIS.DYS ---
HPI History of Present Illness Chief Complaint: Shortness of Breath Informant: patient Narrative Narrative: 57-year-old female presenting to the emergency room with hoarse voice and cough with sputum production. Patient states she had a COPD exacerbation in January and since that time is continued to have a slight cough with some sputum. She notes 2 days ago she began to have a hoarse voice and feeling dizzy. She notes an increase in cough. She has been using her albuterol MDI with no relief. She states that she does not get fevers so she denies any current fever. She does not wear home oxygen. She spoke with her cell reliner office who sent her to emergency. Patient notes a history of heart failure, diabetes, COPD, GHANSHYAM, hypertension. No vomiting or diarrhea. No chest pain. Patient has a history of pulmonary embolism and is on Eliquis. She denies missing any doses. [facility] Medical History Anemia Anxiety Anxiety disorder Arthritis Asthma Back pain Bronchitis Cardiology follow-up encounter Chronic back pain Chronic cough Chronic hypoxemic respiratory failure Chronic sinusitis COPD exacerbation COPD, frequent exacerbations Costal chondritis CPAP (continuous positive airway pressure) dependence Depression Diabetes DVT (deep venous thrombosis) Emphysema, unspecified Essential hypertension Excessive bleeding Fibromyalgia Gastric reflux GERD (gastroesophageal reflux disease) Healthcare-associated pneumonia History of CHF (congestive heart failure) History of DVT of lower extremity History of echocardiogram History of edema History of pulmonary embolus (PE) History of steroid therapy Insulin dependent diabetes mellitus Itching Leg cramps Livedo reticularis Morbid (severe) obesity due to excess calories Nicotine dependence, uncomplicated Normal stress echocardiogram Obstructive sleep apnea On home oxygen therapy Open wound Osteoarthritis of right hip Otitis media Patient's noncompliance with other medical treatment and regimen Personal history of thromboembolic disease Post-menopausal Pulmonary embolism Rheumatoid arthritis Shortness of breath Sleep apnea Smoker TIA (transient ischemic attack) Tobacco dependence syndrome Tubal Type 2 diabetes mellitus Wears glasses Home Medications alprazolam 0.5 mg tablet 0.5 mg PO BID PRN PRN Anxiety 12/15/13 [History Last Taken 06/04/22 05:00] atenolol 100 mg tablet 100 mg PO DAILY blood pressure 12/15/13 [History Last Taken 06/04/22 05:00] omeprazole 40 mg capsule,delayed release 40 mg PO DAILY GERD 12/15/13 [History Last Taken 06/03/22] pravastatin 40 mg tablet 40 mg PO QHS cholesterol 03/17/14 [History Last Taken 06/03/22] glimepiride 4 mg tablet 4 mg PO DAILY diabetes 04/23/15 [History Last Taken 06/03/22] docusate sodium 100 mg capsule 200 mg PO BID Constipation 03/10/17 [History Last Taken 06/03/22] pregabalin 300 mg capsule (Lyrica) 300 mg PO BID nerve pain 03/10/17 [History Last Taken 06/03/22] rivaroxaban 20 mg tablet 20 mg PO DAILY blood thinner 03/10/17 [History Last Taken 06/02/22 17:00] quetiapine 100 mg tablet 100 mg PO QHS sleep 12/12/17 [History Last Taken 06/03/22] trazodone 50 mg tablet 50 mg PO QHS sleep 12/13/17 [History Last Taken 06/03/22] montelukast 10 mg tablet 10 mg PO QPM allergies #30 tabs 12/26/20 [Rx Last Taken 06/03/22] multivitamin (Daily Multi-Vitamin tablet) 1 tab PO DAILY vitamin 12/26/20 [History Last Taken 06/03/22] bupropion HCl 150 mg tablet,12 hr sustained-release 150 mg PO BID mental health 11/27/21 [History Last Taken 06/03/22] dapagliflozin propanediol 5 mg tablet (Farxiga) 5 mg PO DAILY diabetes 11/27/21 [History Last Taken 06/03/22] diclofenac sodium 75 mg tablet,delayed release 75 mg PO BID 11/27/21 [History Last Taken 06/03/22] insulin glargine 100 unit/mL (3 mL) subcutaneous pen (Lantus Solostar U-100 Insulin) 60 unit subcut BID diabetes 11/27/21 [History Last Taken 06/03/22 06:00] omega-3 acid ethyl esters 1 gram capsule 2 cap PO BID supplement 11/27/21 [History Last Taken 06/03/22] venlafaxine 150 mg capsule,extended release 24 hr 300 mg PO QHS mental health 11/27/21 [History Last Taken Unknown] furosemide 40 mg tablet 40 mg PO DAILY diabetic #30 tabs 04/20/22 [Rx Last Taken 06/03/22] albuterol sulfate 2.5 mg/3 mL (0.083 %) solution for nebulization 2.5 mg (3 mL) inhalation Q6H PRN SHORTNESS OF BREATH #180 vials 04/29/22 [Rx Last Taken 06/04/22] loratadine 10 mg tablet 10 mg PO DAILY allergies #90 tabs 04/29/22 [Rx Last Taken 06/03/22] acetaminophen 650 mg tablet,extended release 1,300 mg PO Q8H PAIN 05/31/22 [History Last Taken Unknown] metformin 500 mg tablet,extended release 24 hr 1,000 mg PO BID diabetes 05/31/22 [History Last Taken 06/02/22] ferrous sulfate 325 mg (65 mg iron) tablet 325 mg PO DAILY supplement #30 tabs 06/08/22 [Rx Last Taken 06/03/22] insulin lispro 100 unit/mL subcutaneous pen (Humalog KwikPen (U-100) Insulin) See Protocol subcut ACHS diabetes #15 mL 06/08/22 [Rx Last Taken Unknown] oxycodone 5 mg tablet 5 mg PO Q6H PRN PRN Pain 4 days #14 tabs 06/08/22 [Rx Last Taken Unknown] polyethylene glycol 3350 17 gram oral powder packet 17 g PO DAILY #0 ea 06/08/22 [Rx Last Taken Unknown] sennosides 8.6 mg-docusate sodium 50 mg tablet (Stool Softener-Stimulant Laxative) 2 tab PO BID laxative #0 tabs 06/08/22 [Rx Last Taken Unknown] guaifenesin 1,200 mg tablet, extended release 12 hr 1,200 mg PO Q12H cough #60 tabs 12/28/22 [Rx Last Taken Unknown] fluticasone 232 mcg-salmeterol 14 mcg/actuation breath activated powdr (AirDuo RespiClick) 1 inh inhalation BID #1 ea 12/30/22 [Rx Last Taken Unknown] umeclidinium 62.5 mcg/actuation blister powder for inhalation (Incruse Ellipta) 1 inh inhalation DAILY breathing #30 ea 12/30/22 [Rx Last Taken Unknown] albuterol sulfate 90 mcg/actuation aerosol inhaler 2 puff inhalation Q6H PRN shortness of breath or wheezing #18 grams 01/10/23 [Rx Last Taken Unknown] prednisone 10 mg tablet 10 mg PO DAILY #9 tabs 01/31/23 [Rx Last Taken Unknown] azithromycin 250 mg tablet See Rx Instructions PO .COMPLEX #6 tabs 02/10/23 [Rx Last Taken Unknown] albuterol sulfate 90 mcg/actuation aerosol inhaler (Ventolin HFA) 2 puff inhalation Q4H PRN PRN Wheezing ##1 03/11/23 [Rx Last Taken Unknown] prednisone 20 mg tablet 60 mg (3 x 20 mg) PO DAILY #15 TABLETS 03/11/23 [Rx Last Taken Unknown] Allergy/AdvReac Type Severity Reaction Status Date / Time enoxaparin sodium Allergy Mild Itching Verified 03/11/23 09:43 [From Lovenox] heparin Allergy Itching Verified 03/11/23 09:43 varenicline [From Chantix] AdvReac Intermediate MENTAL Verified 03/11/23 09:43 ISSUES arthromycin Allergy Mild Itching Uncoded 01/21/23 15:07 Family History Other No pertinent family history Surgical History History of tubal ligation Hx of surgical procedure No pertinent past surgical history Social History Smoking Status: Current every day smoker tobacco type: cigarettes alcohol intake: never substance use type: does not use caffeine: Yes Type: coffee Number of servings: 5 ROS ROS ED Constitutional Constitutional ED: Denies chills or weight loss Eyes Eyes: Denies change in vision or diplopia ENT ENT ED: Reports sore throat and other Details: Weak voice ; Denies ear pain or rhinorrhea Cardiovascular Cardiovascular: Denies chest pain, orthopnea, palpitations or racing heartbeat Respiratory/Chest Respiratory/Chest: Reports cough and sputum; Denies dyspnea or orthopnea Gastrointestinal Gastrointestinal: Denies abdominal pain, diarrhea, nausea or vomiting Genitourinary Genitourinary ED: Denies dysuria, hematuria or urinary frequency Musculoskeletal Musculoskeletal: Denies arthralgias or myalgias Integumentary Denies abscess or rash Neurologic Neurologic: Denies headache(s) or weakness Psychiatric Psychiatric: Denies anxiety, depression, suicidal ideation or suicidal thoughts Endocrine Endocrinology: Denies polydipsia, polyphagia or polyuria Allergic/Immunologic Allergic/Immunologic ED: Denies mouth swelling, tongue swelling or urticaria EXAM Physical Exam Const Vital Signs: 03/11/23 09:44 03/11/23 09:52 03/11/23 10:31 Temperature 99 F Temperature Source Temporal Pulse Rate 72 70 Respiratory Rate 22 H 22 H Respiratory Effort Short of Breath Respiratory Pattern Tachypnea Normal Blood Pressure 127/78 H Blood Pressure Mean 94 Pulse Ox 95 Oxygen Delivery Method Room Air Positive well nourished, well developed and obese General Appearance ED: well developed Nutritional Appearance: obese HEENT Reports normocephalic, head/scalp atraumatic and moist mucous membranes HEENT Narrative: Patient's voice sounds hoarse. No oropharyngeal erythema or swelling or exudates seen. Eyes PERRL and EOMs intact bilaterally Neck no lymphadenopathy, supple and no JVD Resp normal respiratory effort Resp Narrative: End expiratory wheeze. No increased work of breathing. Cardio regular rate, regular rhythm and no murmurs GI normal to inspection, nondistended, normoactive bowel sounds and non-tender Palpation: soft Back/Spine no CVA tenderness and normal ROM Extremity normal to inspection General Extremety ED: Negative for edema General Extremity: Negative for edema Neuro oriented x3 and CN's II-XII intact bilaterally Sensorium / Orientation: alert Motor Exam: strength 5/5 throughout Psych mental status grossly normal Mood & Affect: Negative for depressed or tearful Skin no rashes or lesions noted and no wounds MDM MDM MDM Narrative Medical decision making narrative: My independent interpretation of the plain films of the chest is no acute process..There appears to be a scar in the left lobe white count 9.2 hemoglobin 14.6. BMP showed a glucose of 159. COVID-19 test is positive. Influenza test is negative. Patient received a dose of Solu-Medrol as well as breathing treatments. At this point patient is not requiring any supplemental oxygen. She otherwise clinically appears well. She will be discharged home with a prescription for prednisone. She should consider herself contagious to others. Return if worsening or concern. Of note we talked briefly about Paxlovid. Using shared decision making we will defer at this point History & Record Review Discussion w/independent historian: Patient Additional record(s) reviewed:: Prior ED visit and Prior labs Lab Data Attestation: I reviewed the patient's lab results. Labs: Laboratory Results - last 24 hr 03/11/23 10:00 WBC 9.2 RBC 5.29 Hgb 14.6 Hct 46.4 MCV 87.7 MCH 27.6 MCHC 31.5 L RDW Std Deviation 52.6 H RDW Coeff of Luiz 17.0 H Plt Count 266 MPV 10.3 Immature Gran % (Auto) 0.200 Neut % (Auto) 44.4 L Lymph % (Auto) 47.0 H Keith % (Auto) 5.2 Eos % (Auto) 3.0 Baso % (Auto) 0.2 Absolute Neuts (auto) 4.1 Absolute Lymphs (auto) 4.34 Nucleated RBC % 0 Sodium 136 Potassium 4.0 Chloride 100 Carbon Dioxide 29.0 Anion Gap 7 BUN 19 H Creatinine 0.96 Estim Creat Clear Calc 51.75 Est GFR (MDRD) Af Amer 77 Est GFR (MDRD) Non-Af 64 BUN/Creatinine Ratio 19.8 Glucose 159 H Calcium 9.8 Radiography Diagnostic Testing: Clinical Impression(s) from Imaging Studies Chest X-Ray 03/11/23 10:15 IMPRESSION: Increased linear markings in the medial left upper lobe suggestive of a either scarring and/or atelectasis. Electronically Signed: Fredrick Leal MD at 10:42 EST , EKG Initial EKG: Attestation: I personally reviewed and interpreted this EKG as follows: Comments: Normal sinus rhythm ventricular rate of 68 bpm. No concerning features of ACS noted Discharge Plan Triage Chief Complaint: Shortness of Breath ED Provider: Erasmo Chery Dx/Rx/DC Orders Clinical Impression: COVID-19, Laryngitis, COPD exacerbation Instructions: Coronavirus Disease 2019 (COVID-19): Caring for Yourself or Others Prescriptions: New prednisone 20 mg tablet 60 mg PO DAILY Qty: 15 0RF albuterol sulfate [Ventolin HFA] 90 mcg/actuation HFA aerosol inhaler 2 puff inhalation Q4H PRN PRN (Reason: Wheezing) Qty: 1 0RF Rx Instructions: with spacer No Action rivaroxaban 20 MG tablet 20 mg PO DAILY Patient Comments: Blood thinner pregabalin [Lyrica] 300 mg capsule 300 mg PO BID multivitamin [Daily Multi-Vitamin] Tablet 1 tab PO DAILY montelukast 10 mg tablet 10 mg PO QPM Qty: 30 5RF Farxiga 5 mg tablet 5 mg PO DAILY insulin glargine [Lantus Solostar U-100 Insulin] 100 unit/mL (3 mL) insulin pen 60 unit subcut BID omega-3 acid ethyl esters 1 gram capsule 2 cap PO BID diclofenac sodium 75 mg tablet,delayed release (DR/EC) 75 mg PO BID Hold Instructions: Hold it while taking Xarelto. venlafaxine 150 mg capsule,extended release 24hr 300 mg PO QHS bupropion HCl 150 mg tablet sustained-release 12 hr 150 mg PO BID albuterol sulfate 2.5 mg /3 mL (0.083 %) solution for nebulization 2.5 mg INHALATION Q6H PRN (Reason: SHORTNESS OF BREATH ) Qty: 180 3RF loratadine 10 mg tablet 10 mg PO DAILY Qty: 90 3RF prednisone 10 mg tablet 10 mg PO DAILY Qty: 9 0RF Rx Instructions: 2 tabs for three days, then 1 tab for 3 days atenolol 100 MG tablet 100 mg PO DAILY Patient Comments: Blood pressure/heart rate omeprazole 40 MG capsule,delayed release(DR/EC) 40 mg PO DAILY Patient Comments: Acid reflux alprazolam 0.5 MG tablet 0.5 mg PO BID PRN PRN (Reason: Anxiety) Patient Comments: Anxiety pravastatin 40 MG tablet 40 mg PO QHS Patient Comments: Cholesterol docusate sodium 100 MG capsule 200 mg PO BID Patient Comments: Stool softener glimepiride 4 MG tablet 4 mg PO DAILY Patient Comments: diabetes quetiapine 100 MG tablet 100 mg PO QHS trazodone 50 MG tablet 50 mg PO QHS acetaminophen 650 mg Tablet Extended Release 1,300 mg PO Q8H metformin 500 mg tablet extended release 24 hr 1,000 mg PO BID polyethylene glycol 3350 17 gram Powder In Packet 17 g PO DAILY Qty: 0 0RF Hold Instructions: Pt has been DC'd sennosides-docusate sodium [Stool Softener-Stimulant Laxat] 8.6-50 mg Tablet 2 tab PO BID Qty: 0 0RF insulin lispro [Humalog KwikPen Insulin] 100 unit/mL Insulin Pen See Protocol subcut ACHS Qty: 15 2RF Protocol: 5. Sliding Scale Insulin High Dosing Condition: 150-209 mg/dl = 3 units Condition: 210-259 mg/dl = 6 units Condition: 260-324 mg/dl = 9 units Condition: 325-374 mg/dl = 12 units Condition: 375-409 mg/dl = 14 units Condition: 410-449 mg/dl = 16 units Condition: Greater than 449 call physician Protocol Text: - Use for Total Daily Dose of Insulin 81-120 units - Very insulin resistant or septic patients HIGH DOSING ALGORITHM ferrous sulfate 325 MG tablet 325 mg PO DAILY Qty: 30 0RF Patient Comments: Iron supplement oxycodone 5 mg Tablet 5 mg PO Q6H PRN PRN (Reason: Pain) 4 Days Qty: 14 0RF Hold Instructions: Pt has been DC'd furosemide 40 mg tablet 40 mg PO DAILY Qty: 30 11RF guaifenesin 1,200 mg tablet extended release 12hr 1,200 mg PO Q12H Qty: 60 6RF fluticasone propion-salmeterol [AirDuo RespiClick] 232-14 mcg/actuation aerosol powdr breath activated 1 inh INHALATION BID Qty: 1 6RF Hold Instructions: Pt has been DC'd Incruse Ellipta 62.5 mcg/actuation blister with device 1 inh INHALATION DAILY Qty: 30 6RF albuterol sulfate 90 mcg/actuation HFA aerosol inhaler 2 puff INHALATION Q6H PRN (Reason: shortness of breath or wheezing) Qty: 18 6RF azithromycin 250 mg tablet See Rx Instructions PO .COMPLEX Qty: 6 0RF Rx Instructions: take 500 mg today (day 1), then 250 mg for 4 days (days 2-5) PO Primary Care Provider: Camilo Sloan Referrals: Camilo Sloan DO [Primary Care Provider] - As Needed Disposition Disposition: Home, Self Care
--- NOTE | 2023-03-11 10:15 | RAD_ITS ---
STUDY: X-RAY CHEST REASON FOR EXAM: Female, 57 years old. Copd TECHNIQUE: Single AP portable view of the chest. COMPARISON: Comparison is made with prior study January 21, 2023. FINDINGS: EKG electrodes are seen. Linear density is seen in the medial aspect of the left upper lobe suggestive of linear atelectasis and/or scarring. There is no demonstrated pleural abnormality. Normal size heart. Normal mediastinum and mony. Normal visualized pulmonary arteries. Normal visualized aortic arch and descending thoracic aorta. Normal visualized thoracic spine. Normal visualized ribs, clavicles, and shoulders. There is no demonstrated abnormality of the visualized soft tissue structures of the upper abdomen. RAD/Chest 1 View (Portable) IMPRESSION: Increased linear markings in the medial left upper lobe suggestive of a either scarring and/or atelectasis. Electronically Signed: Fredrick Leal MD at 10:42 EST ,
[2023-03-11] MEDS: MethylPREDNISolone 125 MG/2 ML Vial IV (10:16)
[2023-03-11 10:19] LABS: Absolute Lymphocyte Count 4.34 X10^3/uL (0.83-4.51); Absolute Neutrophil Count 4.1 X10^3/uL (2.0-7.7); Basophil# 0.02 X10^3/uL; Basophil% 0.2 % (0-1); Eosinophil# 0.28 X10^3/uL; Hematocrit 46.4 % (37-47); Hemoglobin 14.6 g/dL (12.0-15.0); Lymphocyte # 4.34 X10^3/ul (0.83-4.51); Mean Corp Hgb Conc 31.5 g/dL (32-36); Mean Corpuscular Hgb 27.6 pg (27.0-32.0); Mean Corpuscular Volume 87.7 fL (81-99); Mean Platelet Vol. 10.3 fl (6.2-12.0); Monocyte# 0.48 X10^3/uL; Monocyte% 5.2 % (0-10); NRBC Flagged by Analyzer 0 % (0-5); Neutrophil % 44.4 % (47-70); Platelet Count 266 K/mm3 (150-450); RBC Distribution Width SD 52.6 fl (35.1-43.9); Red Blood Count 5.29 M/mm3 (4.2-5.4); White Blood Count 9.2 K/mm3 (4.4-11.0)
[2023-03-11] MEDS: Albuterol 2.5 MG/3 ML VIAL.NEB. INHALATION (10:26)
[2023-03-11 10:28] LABS: Anion Gap 7 (5-15); BUN 19 mg/dL (7-18); BUN/Creat Ratio 19.8 RATIO (10-20); Calcium,Total 9.8 mg/dL (8.5-10.1); Chloride 100 mmol/L (98-107); Creatinine, Serum 0.96 mg/dL (0.55-1.02); EST Glomerular Filtration Rate 64 mL/min (>60); Est Glom Filt Rate - Afr Amer 77 mL/min (>60); Estimated Creatinine Clearance 51.75 ml/min; Glucose 159 mg/dL (74-106); Sodium Level 136 mmol/L (136-145)
[2023-03-11] MEDS: Ipratropium/Albuterol Sulfate 3 ML AMPUL.NEB INHALATION (10:30)
[2023-03-11 10:31] VITALS: PULSE 70; RESP 22
== END 2023-03-11 11:23 | disposition home or self-care (01) ==
PROVIDERS: Emergency Provider Emergency Medicine; PCP Preventive Medicine Occupational Medicine; Visit Provider Emergency Medicine
DX: U07.1 COVID-19 (principal); J44.1 Chronic obstructive pulmonary disease with (acute) exacerbation; I50.9 Heart failure, unspecified; E11.9 Type 2 diabetes mellitus without complications; J04.0 Acute laryngitis; G47.33 Obstructive sleep apnea (adult) (pediatric); F17.210 Nicotine dependence, cigarettes, uncomplicated; E66.9 Obesity, unspecified; Z86.718 Personal history of other venous thrombosis and embolism; Z99.81 Dependence on supplemental oxygen; Z86.711 Personal history of pulmonary embolism; Z86.73 Personal history of transient ischemic attack (TIA), and cerebral infarction without residual deficits
CPT/HCPCS: 71045; 80048; 85025; 87428; 93005; 94640; 96374; 99284; A4216

== ENCOUNTER → 2023-06-03 | Outpatient (CLI) | payer MEDICAID, SELFPAY ==
--- NOTE | 2023-06-03 07:32 | ART_ITS ---
Reason For Study: PVD Procedure A bilateral lower extremity continuous wave Doppler with analog waveform analysis and ankle brachial indexes. Left Segmental Pressures Left brachial= 141mmHg. Left posterior tibial artery = 163mmHg. Left dorsalis pedis artery = 163mmHg. Left digit = 159 mmHg. The left posterior tibial artery waveforms are triphasic. The left dorsalis pedis waveforms are triphasic. Right Segmental Pressures Right brachial= 139mmHg. Right posterior tibial artery = 160mmHg. Right dorsalis pedis artery = 169mmHg. Right digit = 188 mmHg. The right posterior tibial artery waveforms are triphasic. The right dorsalis pedis waveforms are triphasic. Indices The right resting ankle brachial index is 1.20. The right ankle brachial index by the posterior tibial artery is 1.13. The right ankle brachial index by the dorsalis pedis is 1.20. The left resting ankle brachial index is 1.16. The left ankle brachial index by the posterior tibial artery is 1.16. The left ankle brachial index by the dorsalis pedis is 1.13. VL/Ankle Brachial Index Interpretation Summary Normal at rest with normal DERICK's listed above,. Ordering Physician: Clifton Martell Referring Physician: Camilo Sloan Performed By: Samina Mccallum RVFariba, RDCS
--- OUTSIDE RECORDS SUMMARY | 2023-06-03 07:52 | XMS RPT_ITS | CCD ---
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 [facility] Tobacco Nicotine Use: 1 pack daily of cigarettes. [facility] Start: 10-04-2022 End: 02-21-2023 Tobacco smoking status Smokes tobacco daily (finding) [facility] History of tobacco use Cigarette Smoker C [facility] Start: 10-04-2022 End: 02-21-2023 Cigarettes smoked current (pack per day) - Reported 1 [facility] Start: 10-04-2022 Alcohol intake Ex-drinker (finding) [facility] Start: 10-04-2022 End: 02-21-2023 Tobacco use panel [facility] Start: 1965 Sex Assigned At Not on file C [facility] Start: 02-21-2023 Tobacco use and exposure Smokeless tobacco non-user [facility] Start: 02-21-2023 End: 02-28-2023 Alcohol intake Lifetime non-drinker (finding) [facility] Adolescent depressio n screening assessment 5 [facility] Medical Equipment Procedure Code Equipment Code Equipment Origin al Text Equipment Identifier Dates Blood Glucose Te st Strips Start: 04-09-[address]ps Start: 11-15-2018 Lancets Start: 06-19-2020 See Instructions , Dispense glucose test strips, #100, UAD daily to test blood sugar, # 100 EA, 3 Refill(s), Pharmacy: [place] [id number], Diabetes mellitus, 158, cm, 04/01/21 8:52:00 EST, Height, 114.3, kg, 04/01/21 8:52:00 EST, Dosing... Start: 05-22-2021 See Instructions , Dispense ultrafine lancets, #200, UAD twice daily to check blood sugar, # 200 EA, 3 Refill(s), Pharmacy: [place] [address], Diabetes mellitus, 157, cm, 06/18/20 10:41:00 EDT, Height, 120.6, kg, 06/18/20 10:41:00 EDT,... Start: 06-19-2020 See Instructions , Dispense glucose test strips, #100, UAD daily to test blood sugar, # 100 EA, 3 Refill(s), Pharmacy: [place] [id number], Diabetes mellitus, 158, cm, 04/01/21 8:52:00 EST, Height, 114.3, kg, 04/01/21 8:52:00 EST, Dosing... Start: 05-22-2021 See Instructions , Dispense ultrafine lancets, #200, UAD twice daily to check blood sugar, # 200 EA, 0 Refill(s), [place] [facility] [place], 158, cm, 07/01/21 8:42:00 EDT, Height, 118.2, kg, 07/01/21 8:31:00 EDT, Dosing Weight Start: 08-05-2021 See Instructions , Dispense glucose test strips, #100, UAD daily to test blood sugar, # 100 EA, 3 Refill(s), Pharmacy: [facility] [id number], Diabetes mellitus, 158, cm, 04/01/21 8:52:00 EST, Height, 114.3, kg, 04/01/21 8:52:00 EST, Dosing... Start: 05-22-2021 See Instructions , Dispense ultrafine lancets, #200, UAD twice daily to check blood sugar, # 200 EA, 0 Refill(s), [place] [facility] [place], 158, cm, 07/01/21 8:42:00 EDT, Height, 118.2, kg, 07/01/21 8:31:00 EDT, Dosing Weight Start: 08-05-2021 See Instructions , Dispense glucose test strips, #100, UAD daily to test blood sugar, # 100 EA, 3 Refill(s), Pharmacy: [facility] [id number], Diabetes mellitus, 158, cm, 04/01/21 8:52:00 EST, Height, 114.3, kg, 04/01/21 8:52:00 EST, Dosing... Start: 05-22-2021 See Instructions , Dispense ultrafine lancets, #200, UAD twice daily to check blood sugar, # 200 EA, 0 Refill(s), [place] [facility] [place], 158, cm, 07/01/21 8:42:00 EDT, Height, 118.2, kg, 07/01/21 8:31:00 EDT, Dosing Weight Start: 08-05-2021 See Instructions , Dispense glucose test strips, #100, UAD daily to test blood sugar, # 100 EA, 3 Refill(s), Pharmacy: [facility] [id number], Diabetes mellitus, 158, cm, 04/01/21 8:52:00 EST, Height, 114.3, kg, 04/01/21 8:52:00 EST, Dosing... Start: 05-22-2021 See Instructions , Dispense ultrafine lancets, #200, UAD twice daily to check blood sugar, # 200 EA, 0 Refill(s), [place] [facility] [place], 158, cm, 07/01/21 8:42:00 EDT, Height, 118.2, kg, 07/01/21 8:31:00 EDT, Dosing Weight Start: 08-05-2021 See Instructions , Dispense glucose test strips, #100, UAD daily to test blood sugar, # 100 EA, 3 Refill(s), Pharmacy: [facility] [id number], Diabetes mellitus, 158, cm, 04/01/21 8:52:00 EST, Height, 114.3, kg, 04/01/21 8:52:00 EST, Dosing... Start: 05-22-2021 See Instructions , Dispense ultrafine lancets, #200, UAD twice daily to check blood sugar, # 200 EA, 0 Refill(s), [place] [facility] [place], 158, cm, 07/01/21 8:42:00 EDT, Height, 118.2, kg, 07/01/21 8:31:00 EDT, Dosing Weight Start: 08-05-2021 See Instructions , Dispense glucose test strips, #100, UAD daily to test blood sugar, # 100 EA, 3 Refill(s), [place] [facility] [place], 157, cm, 03/31/22 14:29:00 EST, Height, 115.9, kg, 03/31/22 14:29:00 EST, Dosing Weight Start: 05-19-2022 See Instructions , Dispense ultrafine lancets, #200, UAD twice daily to check blood sugar, # 200 EA, 0 Refill(s), [place] [facility] [place], 158, cm, 07/01/21 8:42:00 EDT, Height, 118.2, kg, 07/01/21 8:31:00 EDT, Dosing Weight Start: 08-05-2021 [id number] Start: 01-15-2023 Functional Status Date Assessment Result Facility 10-04-2022 Functional Status Up ad lisa [facility] dennistal [facility] 10-04-2022 Functional Status Standard Safet y ID band on, Bed in low position [facility] 10-04-2022 Functional Status Room check performed [facility] 09-02-2021 Functional Status ID band on, Call device within reach, Bed in low position, Wheels locked [facility] Mental Status Date Assessment Result Facility 10-04-2022 Mental Status Orientation Oriented x 4 [facility] 10-04-2022 Mental Status [facility] 10-31-2021 Mental Status Orientation Oriented x 4 [facility] 09-02-2021 Mental Status Oriented x 4 [facility] 07-04-2021 Mental Status [facility] Clinical Notes 07-04-2021 to 02-28-2023 Eliana Salazar PA-C - 02/28/2023 11:30 AM ESTDischarge InstructionsDischarge InstructionsEliana Salazar PA-C - 02/21/2023 9:15 AM Eliana Bourgeois PA-C - 02/21/2023 9:15 AM EST Note Date & Type Note Facility 02-28-2023 History of Present illness Narrative Images from the original note were not included. 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 She is accompanied by her friend. The history is provided by the patient, her friend and chart review. Kamini is a 57 y.o. female with a PMHx significant for COPD, Fibromyalgia, GERD, HTN, Depression, Anxiety, RA and Diabetes Mellitus. She sustained contact shaffer to her right fingers. Her most recent burn located on right index finger occurred on 02/11/23 around 1200. She put a plate in the microwave and grabbed it and sustained a contact burn. 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 She also had scabs on her right index and middle fingers from previous shaffer: holding a cigarette and contact with another hot object. She went to an Urgent Care on 02/18 for her burn and pink eye and they referred her to our burn center. She was then seen in our burn center on 02/21/23. Educated on daily wound care with Lou Today Kamini is post burn day #17 from her most recent burn. She feels her fingers are looking better and her scabs are almost all gone. She reports her middle finger has stopped draining. Her friend feels her fingers are less red. Kamini denies any new symptoms from baseline. She denies fevers, chills, nausea, vomiting, chest pain, increased work of breathing from baseline or decreased appetite. Reports eating a lot of protein. She did not remember to check her sugars but reports feeling well. She denies any other questions or concerns at this time. Response to Treatment: better REVIEW OF SYSTEMS: Review of Systems Constitutional: Negative for activity change, appetite change, chills and fever. HENT: Continues to have some sinus drainage, was hospitalized after a sinus infection recently Respiratory: Negative for cough. No change in baseline sob Gastrointestinal: Negative for abdominal pain and vomiting. Skin: Positive for wound. Negative for rash. Neurological: Negative for dizziness. No change in headaches from baseline Psychiatric/Behavioral: Negative for sleep disturbance. The patient is not nervous/anxious. PAST MEDICAL/SURGICAL HISTORY: Past Medical History: Diagnosis Date Anxiety disorder COPD (chronic obstructive pulmonary disease) Fibromyalgia GERD (gastroesophageal reflux disease) Heart failure Hypertension Major depressive disorder, single episode Rheumatoid arthritis Type 2 diabetes mellitus without complications Past Surgical History: Procedure Laterality Date TOENAIL EXCISION Left Anesthesia History DRUG/FOOD ALLERGIES: Allergies Allergen Reactions Enoxaparin Itching Varenicline Other (See Comments) Per pt mental issues made her go crazy Heparin Itching and Rash Azithromycin Hives MEDICATIONS: Current Outpatient Medications: Acetaminophen (TYLENOL) 650 MG TBCR, , Disp: , Rfl: VENTOLIN HFA 108 (90 Base) MCG/ACT inhaler, , Disp: , Rfl: Alcohol Swabs (ALCOHOL PADS), , Disp: , Rfl: ALPRAZolam 3 MG TB24, , Disp: , Rfl: amitriptyline (ELAVIL) 25 MG tablet, Take by mouth, Disp: , Rfl: atenolol (TENORMIN) 100 MG TABS tablet, Take by mouth, Disp: , Rfl: buPROPion (WELLBUTRIN) 100 MG tablet, Take 2 Tablets (200 mg) by mouth 2 times daily, Disp: , Rfl: FARXIGA 10 MG TABS, , Disp: , Rfl: diclofenac sodium (VOLTAREN) 75 MG EC tablet, , Disp: , Rfl: Docusate Sodium (DSS) 100 MG CAPS, Take 1 Capsule (100 mg) by mouth 2 times daily, Disp: , Rfl: ferrous sulfate (FEOSOL) 325 (65 FE) MG TABS tablet, Take by mouth, Disp: , Rfl: fexofenadine (RAF) 180 MG tablet, Take 1 Tablet (180 mg) by mouth, Disp: , Rfl: fluticasone (FLONASE) 50 MCG/ACT nasal spray, Administer in nose, Disp: , Rfl: furosemide (LASIX) 40 MG TABS tablet, , Disp: , Rfl: Glimepiride (AMARYL) 4 MG TABS, Take 1 Tablet (4 mg) by mouth every morning (before breakfast), Disp: , Rfl: ONETOUCH ULTRA test strip, , Disp: , Rfl: MUCUS RELIEF MAX ST 1200 MG TB12, , Disp: , Rfl: Insulin Glargine (BASAGLAR) 100 UNIT/ML SOPN, Inject into the skin, Disp: , Rfl: Insulin Lispro, 1 Unit Dial, (HUMALOG) 100 UNIT/ML SOPN, Insulin Lispro (Humalog Kwikpen Insulin) 100 unit/mL Insulin Pen Active 0 UNIT SC BEFORE MEALS AND AT BEDTIME June 08, 2022 1:00am, Disp: , Rfl: loratadine (CLARITIN) 10 MG tablet, , Disp: , Rfl: metFORMIN (GLUCOPHAGE-XR) 500 MG ER tablet, Take by mouth, Disp: , Rfl: montelukast (SINGULAIR) 10 MG tablet, , Disp: , Rfl: nystatin (MYCOSTATIN) 046193 UNIT/ML oral suspension, swish and swallow 5 milliliters by mouth four times a day until finished, Disp: , Rfl: Hcocu-1-rlmh Ethyl Esters 1 g CAPS, , Disp: , Rfl: omeprazole (PRILOSEC) 20 MG capsule, Take 2 Capsules (40 mg) by mouth daily, Disp: , Rfl: trimethoprim-polymyxin b (POLYTRIM) 88571-4.1 UNIT/ML-% ophthalmic solution, instill 1 drop into right eye every 4 hours for 10 days, Disp: , Rfl: pravastatin (PRAVACHOL) 40 MG tablet, Take 1 Tablet (40 mg) by mouth daily, Disp: , Rfl: pregabalin (LYRICA) 100 MG capsule, Take 3 Capsules (300 mg) by mouth 2 times daily, Disp: , Rfl: QUEtiapine (SEROQUEL) 100 MG tablet, Take 1 Tablet (100 mg) by mouth 2 times daily, Disp: , Rfl: rivaroxaban (XARELTO) 20 MG TABS tablet, Take by mouth, Disp: , Rfl: traZODone (DESYREL) 50 MG tablet, Take 1 Tablet (50 mg) by mouth nightly at bedtime, Disp: , Rfl: INCRUSE ELLIPTA 62.5 MCG/ACT AEPB, , Disp: , Rfl: venlafaxine (EFFEXOR-XR) 150 MG XR capsule, Take by mouth, Disp: , Rfl: silver sulfADIAZINE (SILVADENE) 1 % CREA cream, Apply to affected area as needed for Other (Dressing Change) for up to 30 days Patient apply to affected area daily., Disp: 400 g, Rfl: 0 SOCIAL/FAMILY HISTORY: Kamini lives with her Tetanus: UTD 10/05/22 Social History Tobacco Use Smoking status: Every Day Types: Cigarettes Smokeless tobacco: Never Vaping Use Vaping Use: Never used Substance Use Topics Alcohol use: Never Drug use: Never History reviewed. No pertinent family history. VITAL SIGNS: Vitals: 02/28/23 1110 BP: (!) 171/76 Patient Position: Sitting Pulse: 77 Resp: 18 Temp: 36.9 C (98.4 F) Weight: (!) 119.4 kg PHYSICAL EXAM: General: Kamini appears well developed, well nourished, and in no acute distress Head/Face: atraumatic and normocephalic Neurologic: alert, oriented appropriately for age Chest/Respiratory: easy, non-labored breathing Cardiac: regular rate Integument: third degree burn to right index finger is healing with a pink and red wound bed. Eschar has thinned. Less erythema of right fingers. Scabbing has resolved to right fingers. No spreading redness, streaking or purulent drainage. No cellulitis. Extremities: spontaneously moving all extremities DATA No new data DIAGNOSIS: Kamini is a 57 y.o. female with contact burn. PROCEDURES: Local wound care by nursing and Dressing application by nursing PLAN: Wound Care: Wash gently with a mild soap and water every day. Apply Silvadene to open burn wounds daily until otherwise directed. Pruritis: N/A Pain Medication: Continue Tylenol prn Nutrition: Pt educated on increasing daily caloric and protein intake to promote wound healing Tetanus: UTD Activity/Work: ad lisa; continue to perform range of motion exercises PT/OT: will continue to monitor. Follow up: 2 weeks Education: Reviewed signs and symptoms of infection to include fever, redness or swelling extending outside of the burn, or purulent drainage. Sun Precautions: instructed patient to take sun precautions for the next year. Apply sunscreen to healed wound every hour while the pt is outside in the sun. PHQ9: Total Score 5 at initial visit. Surgical Intervention: improvement noted with local wound care. Will continue local wound care and continue to monitor. Time spent on encounter (including history, PE, assessment of prior notes/tests and medical management/education was 20 minutes Cellulitis: No Antibiotics: No Grafted: No Date: N/A 11:17 AM 02/28/2023 Eliana Salazar PA-C documented in this encounter [facility] 02-28-2023 Hospital Discharge instructions Zeny Mcintosh RN - 02/28/2023 11:16 AM EST Burn Home Going Instructions Instructions for Home Care: Dressings are to be changed daily Keep dressings clean and dry. May bathe/shower using mild soap and clean wash cloth. Elevate the extremity of affected area if possible, above heart level. Observe for redness, swelling, foul odor, elevated temperature or increased pain (may indicate possible infection). High protein, high calorie diet (i.e. eggs, cheese, meat and milk products) promotes burn wound healing. Encourage liquids (juices, Gatorade, etc.) to replace lost body fluids and speed healing. Avoid extreme changes in temperature. Avoid direct sun exposure. When outdoors, always use a sunscreen with SPF of at least 30. Use as directed. Additional Information: Cleanse with mild soap and water. Apply silvadene ointment with bandaids daily.Follow up in two weeks Call [facility] for any questions or concerns [phone]. documented in this encounter [facility] 02-21-2023 Note NEW PATIENT HISTORY AND PHYSICAL OUT PATIENT BURN CENTER DATE OF SERVICE: 02/21/2023 ATTENDING PROVIDER: Eliana Salazar PA-C PRIMARY CARE PROVIDER: [facility], MD Arian Mandatory Information: Required on all patients Date of Burn: 02/11/23 Time of Burn: 1200 Previous Treatment: Topical Antibacterial Ointment Place of Treatment: Home and Urgent Care on 02/18 Place of Injury: Home Intent of Injury: Accident (put plate in microwave,grabbed plate and sustained contact burn) Mechanism of Burn: Contact Shaffer Site: Right Index Finger: third degree - 0.1% TBSA Right Middle Finger: third degree - 0.01% TBSA Total TBSA: 0.11% TBSA with 0.11% third degree burn Cellulitis: No NON-BURN WOUND: None CHIEF COMPLAINT: Burn HISTORY OF PRESENT ILLNESS: Kamini is a 57 y.o. female who presents with contact shaffer to her right fingers. The patient is being seen today as an emergency visit. She is accompanied by her friend. The history is provided by the patient and her friend . Kamini reports her most recent burn located on right index finger occurred on 02/11/23 around 1200. She put a plate in the microwave and grabbed it and sustained a contact burn. 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 She has been treating that burn at home with antibiotic ointment. She has not been cleaning the burn well. She also reports scabs on her right index and middle fingers from previous shaffer: holding a cigarette and contact with another hot object. Reports she has had those scabs for a few months and they have not improved. She did go to an Urgent Care on 02/18 for her burn and pink eye and they referred her to our burn center. She is on drops for her pink eye. She denies fevers, chills, nausea, vomiting, chest pain or change in baseline sob. Her PMHx is significant for COPD, Fibromyalgia, GERD, HTN, Depression, Anxiety, RA and Diabetes Mellitus. Her tetanus is up to date. REVIEW OF SYSTEMS: Review of Systems Constitutional: Negative for activity change, appetite change, chills and fatigue. HENT: Negative for congestion and sore throat. Eyes: Recovering from pink eye in right eye Respiratory: No change from baseline sob, did have a recent cold that she is recovering from Cardiovascular: Negative for chest pain. Gastrointestinal: Negative for abdominal pain and vomiting. Skin: Positive for wound. Negative for rash. Neurological: Negative for dizziness and headaches. Psychiatric/Behavioral: Negative for suicidal ideas. PAST MEDICAL/SURGICAL HISTORY: Past Medical History: Diagnosis Date Anxiety disorder COPD (chronic obstructive pulmonary disease) Fibromyalgia GERD (gastroesophageal reflux disease) Heart failure Hypertension Major depressive disorder, single episode Rheumatoid arthritis Type 2 diabetes mellitus without complications Past Surgical History: Procedure Laterality Date TOENAIL EXCISION Left Anesthesia History MEDICATIONS: Current Outpatient Medications: Acetaminophen (TYLENOL) 650 MG TBCR, , Disp: , Rfl: VENTOLIN HFA 108 (90 Base) MCG/ACT inhaler, , Disp: , Rfl: Alcohol Swabs (ALCOHOL PADS), , Disp: , Rfl: ALPRAZolam 3 MG TB24, , Disp: , Rfl: atenolol (TENORMIN) 100 MG TABS tablet, Take by mouth, Disp: , Rfl: FARXIGA 10 MG TABS, , Disp: , Rfl: diclofenac sodium (VOLTAREN) 75 MG EC tablet, , Disp: , Rfl: ferrous sulfate (FEOSOL) 325 (65 FE) MG TABS tablet, Take by mouth, Disp: , Rfl: fexofenadine (RAF) 180 MG tablet, Take 1 Tablet (180 mg) by mouth, Disp: , Rfl: fluticasone (FLONASE) 50 MCG/ACT nasal spray, Administer in nose, Disp: , Rfl: furosemide (LASIX) 40 MG TABS tablet, , Disp: , Rfl: ONETOUCH ULTRA test strip, , Disp: , Rfl: MUCUS RELIEF MAX ST 1200 MG TB12, , Disp: , Rfl: Insulin Glargine (BASAGLAR) 100 UNIT/ML SOPN, Inject into the skin, Disp: , Rfl: Insulin Lispro, 1 Unit Dial, (HUMALOG) 100 UNIT/ML SOPN, Insulin Lispro (Humalog Kwikpen Insulin) 100 unit/mL Insulin Pen Active 0 UNIT SC BEFORE MEALS AND AT BEDTIME June 08, 2022 1:00am, Disp: , Rfl: loratadine (CLARITIN) 10 MG tablet, , Disp: , Rfl: metFORMIN (GLUCOPHAGE-XR) 500 MG ER tablet, Take by mouth, Disp: , Rfl: montelukast (SINGULAIR) 10 MG tablet, , Disp: , Rfl: nystatin (MYCOSTATIN) [id number] UNIT/ML oral suspension, swish and swallow 5 milliliters by mouth four times a day until finished, Disp: , Rfl: Zwkwn-2-fhpm Ethyl Esters 1 g CAPS, , Disp: , Rfl: trimethoprim-polymyxin b (POLYTRIM) 37974-7.1 UNIT/ML-% ophthalmic solution, instill 1 drop into right eye every 4 hours for 10 days, Disp: , Rfl: rivaroxaban (XARELTO) 20 MG TABS tablet, Take by mouth, Disp: , Rfl: INCRUSE ELLIPTA 62.5 MCG/ACT AEPB, , Disp: , Rfl: venlafaxine (EFFEXOR-XR) 150 MG XR capsule, Take by mouth, Disp: , Rfl: amitriptyline (ELAVIL) 25 MG tablet, Take by mouth, Disp: , Rfl: buPROPion (WELLBUTRIN) 100 MG tablet, Take 2 Tablets (200 mg) by mouth (more content not included)... [facility] 02-21-2023 Hospital Discharge instructions Zeny Mcintosh RN - 02/21/2023 10:38 AM EST Burn Home Going Instructions Burn Description: This is the initial assessment only. Burn depth may change within the first 24-48 hours. First Degree Burn Burn is superficial, affecting only the outer layer of the skin (Epidermis) Skin is red and/or discolored Burn is painful and mildly swollen, but not blistered Healing time: approximately three to six days Second Degree Burn Burn is partial thickness, affecting the outer layer of skin and a portion of the inner layer (Epidermis and Dermis) Skin is reddened, moist, blistered and swollen Burn is extremely painful due to damaged or exposed nerve endings Healing time: approximately seven to twenty-one days Third Degree Burn Burn is full thickness, affecting and destroying all layers of the skin (Epidermis and all the Dermis layers) Burn appears whitish or charred and has a tough, leathery feeling There may be less pain because nerve endings are destroyed These shaffer usually require a surgical procedure or skin grafting Healing time: Varies Instructions for Home Care: Dressings are to be changed DAILY Keep dressings clean and dry. May bathe/shower using mild soap and clean wash cloth. Elevate the extremity of affected area if possible, above heart level. Observe for redness, swelling, foul odor, elevated temperature or increased pain (may indicate possible infection). High protein, high calorie diet (i.e. eggs, cheese, meat and milk products) promotes burn wound healing. Encourage liquids (juices, Gatorade, etc.) to replace lost body fluids and speed healing. Avoid extreme changes in temperature. Avoid direct sun exposure. When outdoors, always use a sunscreen with SPF of at least 30. Use as directed. Additional Information: CLEANSE WITH MILD SOAP AND WATER.APPLY SILVADENE OINTMENT WITH MEPILEX BORDER/BAND AIDS DAILY Call [facility] for any questions or concerns [phone]. documented in this encounter [facility] 02-21-2023 History and physical note Images from the original note were not included. NEW PATIENT HISTORY AND PHYSICAL OUT PATIENT BURN CENTER DATE OF SERVICE: 02/21/2023 ATTENDING PROVIDER: Eliana Salazar PA-C PRIMARY CARE PROVIDER: [facility], MD Arian Mandatory Information: Required on all patients Date of Burn: 02/11/23 Time of Burn: 1200 Previous Treatment: Topical Antibacterial Ointment Place of Treatment: Home and Urgent Care on 02/18 Place of Injury: Home Intent of Injury: Accident (put plate in microwave,grabbed plate and sustained contact burn) Mechanism of Burn: Contact Shaffer Site: Right Index Finger: third degree - 0.1% TBSA Right Middle Finger: third degree - 0.01% TBSA Total TBSA: 0.11% TBSA with 0.11% third degree burn Cellulitis: No NON-BURN WOUND: None CHIEF COMPLAINT: Burn HISTORY OF PRESENT ILLNESS: Kamini is a 57 y.o. female who presents with contact shaffer to her right fingers. The patient is being seen today as an emergency visit. She is accompanied by her friend. The history is provided by the patient and her friend . Kamini reports her most recent burn located on right index finger occurred on 02/11/23 around 1200. She put a plate in the microwave and grabbed it and sustained a contact burn. 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 She has been treating that burn at home with antibiotic ointment. She has not been cleaning the burn well. She also reports scabs on her right index and middle fingers from previous shaffer: holding a cigarette and contact with another hot object. Reports she has had those scabs for a few months and they have not improved. She did go to an Urgent Care on 02/18 for her burn and pink eye and they referred her to our burn center. She is on drops for her pink eye. She denies fevers, chills, nausea, vomiting, chest pain or change in baseline sob. Her PMHx is significant for COPD, Fibromyalgia, GERD, HTN, Depression, Anxiety, RA and Diabetes Mellitus. Her tetanus is up to date. REVIEW OF SYSTEMS: Review of Systems Constitutional: Negative for activity change, appetite change, chills and fatigue. HENT: Negative for congestion and sore throat. Eyes: Recovering from pink eye in right eye Respiratory: No change from baseline sob, did have a recent cold that she is recovering from Cardiovascular: Negative for chest pain. Gastrointestinal: Negative for abdominal pain and vomiting. Skin: Positive for wound. Negative for rash. Neurological: Negative for dizziness and headaches. Psychiatric/Behavioral: Negative for suicidal ideas. PAST MEDICAL/SURGICAL HISTORY: Past Medical History: Diagnosis Date Anxiety disorder COPD (chronic obstructive pulmonary disease) Fibromyalgia GERD (gastroesophageal reflux disease) Heart failure Hypertension Major depressive disorder, single episode Rheumatoid arthritis Type 2 diabetes mellitus without complications Past Surgical History: Procedure Laterality Date TOENAIL EXCISION Left Anesthesia History MEDICATIONS: Current Outpatient Medications: Acetaminophen (TYLENOL) 650 MG TBCR, , Disp: , Rfl: VENTOLIN HFA 108 (90 Base) MCG/ACT inhaler, , Disp: , Rfl: Alcohol Swabs (ALCOHOL PADS), , Disp: , Rfl: ALPRAZolam 3 MG TB24, , Disp: , Rfl: atenolol (TENORMIN) 100 MG TABS tablet, Take by mouth, Disp: , Rfl: FARXIGA 10 MG TABS, , Disp: , Rfl: diclofenac sodium (VOLTAREN) 75 MG EC tablet, , Disp: , Rfl: ferrous sulfate (FEOSOL) 325 (65 FE) MG TABS tablet, Take by mouth, Disp: , Rfl: fexofenadine (RAF) 180 MG tablet, Take 1 Tablet (180 mg) by mouth, Disp: , Rfl: fluticasone (FLONASE) 50 MCG/ACT nasal spray, Administer in nose, Disp: , Rfl: furosemide (LASIX) 40 MG TABS tablet, , Disp: , Rfl: ONETOUCH ULTRA test strip, , Disp: , Rfl: MUCUS RELIEF MAX ST 1200 MG TB12, , Disp: , Rfl: Insulin Glargine (BASAGLAR) 100 UNIT/ML SOPN, Inject into the skin, Disp: , Rfl: Insulin Lispro, 1 Unit Dial, (HUMALOG) 100 UNIT/ML SOPN, Insulin Lispro (Humalog Kwikpen Insulin) 100 unit/mL Insulin Pen Active 0 UNIT SC BEFORE MEALS AND AT BEDTIME June 08, 2022 1:00am, Disp: , Rfl: loratadine (CLARITIN) 10 MG tablet, , Disp: , Rfl: metFORMIN (GLUCOPHAGE-XR) 500 MG ER tablet, Take by mouth, Disp: , Rfl: montelukast (SINGULAIR) 10 MG tablet, , Disp: , Rfl: nystatin (MYCOSTATIN) 332551 UNIT/ML oral suspension, swish and swallow 5 milliliters by mouth four times a day until finished, Disp: , Rfl: [id number] Ethyl Esters 1 g CAPS, , Disp: , Rfl: trimethoprim-polymyxin b (POLYTRIM) 07129-3.1 UNIT/ML-% ophthalmic solution, instill 1 drop into right eye every 4 hours for 10 days, Disp: , Rfl: rivaroxaban (XARELTO) 20 MG TABS tablet, Take by mouth, Disp: , Rfl: INCRUSE ELLIPTA 62.5 MCG/ACT AEPB, , Disp: , Rfl: venlafaxine (EFFEXOR-XR) 150 MG XR capsule, Take by mouth, Disp: , Rfl: amitriptyline (ELAVIL) 25 MG tablet, Take by mouth, Disp: , Rfl: buPROPion (WELLBUTRIN) 100 MG tablet, Take 2 Tablets (200 mg) by mouth 2 times daily, Disp: , Rfl: Docusate Sodium (DSS) 100 MG CAPS, Take 1 Capsule (100 mg) by mouth 2 times daily, Disp: , Rfl: Glimepiride (AMARYL) 4 MG TABS, Take 1 Tablet (4 mg) by mouth every morning (before breakfast), Disp: , Rfl: omeprazole (PRILOSEC) 20 MG capsule, Take 2 Capsules (40 mg) by mouth daily, Disp: , Rfl: pravastatin (PRAVACHOL) 40 MG tablet, Take 1 Tablet (40 mg) by mouth daily, Disp: , Rfl: pregabalin (LYRICA) 100 MG capsule, Take 3 Capsules (300 mg) by mouth 2 times daily, Disp: , Rfl: QUEtiapine (SEROQUEL) 100 MG tablet, Take 1 Tablet (100 mg) by mouth 2 times daily, Disp: , Rfl: traZODone (DESYREL) 50 MG tablet, Take 1 Tablet (50 mg) by mouth nightly at bedtime, Disp: , Rfl: silver sulfADIAZINE (SILVADENE) 1 % CREA cream, Apply to affected area as needed for Other (Dressing Change) for up to 30 days Patient apply to affected area daily., Disp: 400 g, Rfl: 0 Current Facility-Administered Medications: silver sulfADIAZINE (SILVADENE) 1 % cream, , Topical, Once, Eliana Salazar PA-C DRUG/FOOD ALLERGIES: Allergies Allergen Reactions Enoxaparin Itching Varenicline Other (See Comments) Per pt mental issues made her go crazy Heparin Itching and Rash Azithromycin Hives SOCIAL/FAMILY HISTORY: Kamini has help for wound care. Special Needs: None Preferred Language: Chilean Tetanus: UTD 10/05/22 Social History Tobacco Use Smoking status: Every Day Types: Cigarettes Smokeless tobacco: Never Vaping Use Vaping Use: Never used Substance Use Topics Alcohol use: Never Drug use: Never History reviewed. No pertinent family history. VITAL SIGNS: Vitals: 02/21/23 1008 BP: 140/63 Patient Position: Sitting Pulse: 67 Resp: 20 Temp: 36.1 C (97 F) Weight: (!) 119.2 kg Height: 157.5 cm PHYSICAL EXAM: General: Kamini appears well developed, well nourished, in no acute distress, cooperative, alert, and interactive Head/Face: atraumatic and normocephalic Neurologic: alert, oriented appropriately for age Eyes: sclera and conjunctiva clear Ears: external ears normal Nose: nares patent without discharge Neck: there is full range of motion Chest/Respiratory: easy, non-labored breathing Cardiac: regular rate, warm and well perfused Integumentary: previous shaffer to right middle finger and on right 2nd finger are dry and scabbed. Newest burn to right 2nd finger is pink and yellow in color with well defined borders; likely full thickness. No spreading redness, streaking or purulent drainage. No cellulitis. Extremities: spontaneously moving all extremities DIAGNOSIS: Kamini is a 57 y.o. female with total TBSA: 0.11% TBSA from Contact in distribution documented above. PROCEDURES: Local wound care by nursing and Dressing application by nursing PLAN: Medical Decision Making/ Risk of Complications: Low/Moderate Reviewed prior notes: Yes Extensive history: No Wound Care: Wash gently with a mild soap and water every day. Apply Silvadene to burn wounds daily until otherwise directed. Pruritis: N/A Pain Medication: Continue Tylenol prn Nutrition: Pt educated on increasing daily caloric and protein intake to promote wound healing Tetanus: UTD Activity/Work: ad lisa; perform range of motion exercises with fingers to promote optimal range of motion. PT/OT: will continue to monitor. Demonstrating good range of motion on examination today. Follow up: 1 week in [facility] Education: Reviewed signs and symptoms of infection to include fever, redness or swelling extending outside of the burn, or purulent drainage. Sun Precautions: instructed patient to take sun precautions for the next year. Apply sunscreen to healed wound every hour while the pt is outside in the sun. PHQ9: Total Score 5. Hx of depression/anxiety. Is on medication. Denies thoughts of self-harm, harm to others or SI. Will continue to monitor. Surgical Intervention: will trial a week of better wound care and a change in ointment and reassess at her next visit. Time spent on encounter (including history, PE, assessment of prior notes/tests and medical management/education was 30 minutes Cellulitis: No Antibiotics: No Grafted: No Date: N/A EDUCATION: Discussed with patient/family depth of burn wounds, expected healing time for burn wounds, and signs and symptoms of infection. Understanding voiced. 10:34 AM 02/21/2023 Eliana Salazar PA-C [facility] 02-21-2023 History and physical note Images from the original note were not included. NEW PATIENT HISTORY AND PHYSICAL OUT PATIENT BURN CENTER DATE OF SERVICE: 02/21/2023 ATTENDING PROVIDER: Eliana Salazar PA-C PRIMARY CARE PROVIDER: [facility], MD Arian Mandatory Information: Required on all patients Date of Burn: 02/11/23 Time of Burn: 1200 Previous Treatment: Topical Antibacterial Ointment Place of Treatment: Home and Urgent Care on 02/18 Place of Injury: Home Intent of Injury: Accident (put plate in microwave,grabbed plate and sustained contact burn) Mechanism of Burn: Contact Shaffer Site: Right Index Finger: third degree - 0.1% TBSA Right Middle Finger: third degree - 0.01% TBSA Total TBSA: 0.11% TBSA with 0.11% third degree burn Cellulitis: No NON-BURN WOUND: None CHIEF COMPLAINT: Burn HISTORY OF PRESENT ILLNESS: Kamini is a 57 y.o. female who presents with contact shaffer to her right fingers. The patient is being seen today as an emergency visit. She is accompanied by her friend. The history is provided by the patient and her friend . Kamini reports her most recent burn located on right index finger occurred on 02/11/23 around 1200. She put a plate in the microwave and grabbed it and sustained a contact burn. 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 She has been treating that burn at home with antibiotic ointment. She has not been cleaning the burn well. She also reports scabs on her right index and middle fingers from previous shaffer: holding a cigarette and contact with another hot object. Reports she has had those scabs for a few months and they have not improved. She did go to an Urgent Care on 02/18 for her burn and pink eye and they referred her to our burn center. She is on drops for her pink eye. She denies fevers, chills, nausea, vomiting, chest pain or change in baseline sob. Her PMHx is significant for COPD, Fibromyalgia, GERD, HTN, Depression, Anxiety, RA and Diabetes Mellitus. Her tetanus is up to date. REVIEW OF SYSTEMS: Review of Systems Constitutional: Negative for activity change, appetite change, chills and fatigue. HENT: Negative for congestion and sore throat. Eyes: Recovering from pink eye in right eye Respiratory: No change from baseline sob, did have a recent cold that she is recovering from Cardiovascular: Negative for chest pain. Gastrointestinal: Negative for abdominal pain and vomiting. Skin: Positive for wound. Negative for rash. Neurological: Negative for dizziness and headaches. Psychiatric/Behavioral: Negative for suicidal ideas. PAST MEDICAL/SURGICAL HISTORY: Past Medical History: Diagnosis Date Anxiety disorder COPD (chronic obstructive pulmonary disease) Fibromyalgia GERD (gastroesophageal reflux disease) Heart failure Hypertension Major depressive disorder, single episode Rheumatoid arthritis Type 2 diabetes mellitus without complications Past Surgical History: Procedure Laterality Date TOENAIL EXCISION Left Anesthesia History MEDICATIONS: Current Outpatient Medications: Acetaminophen (TYLENOL) 650 MG TBCR, , Disp: , Rfl: VENTOLIN HFA 108 (90 Base) MCG/ACT inhaler, , Disp: , Rfl: Alcohol Swabs (ALCOHOL PADS), , Disp: , Rfl: ALPRAZolam 3 MG TB24, , Disp: , Rfl: atenolol (TENORMIN) 100 MG TABS tablet, Take by mouth, Disp: , Rfl: FARXIGA 10 MG TABS, , Disp: , Rfl: diclofenac sodium (VOLTAREN) 75 MG EC tablet, , Disp: , Rfl: ferrous sulfate (FEOSOL) 325 (65 FE) MG TABS tablet, Take by mouth, Disp: , Rfl: fexofenadine (RAF) 180 MG tablet, Take 1 Tablet (180 mg) by mouth, Disp: , Rfl: fluticasone (FLONASE) 50 MCG/ACT nasal spray, Administer in nose, Disp: , Rfl: furosemide (LASIX) 40 MG TABS tablet, , Disp: , Rfl: ONETOUCH ULTRA test strip, , Disp: , Rfl: MUCUS RELIEF MAX ST 1200 MG TB12, , Disp: , Rfl: Insulin Glargine (BASAGLAR) 100 UNIT/ML SOPN, Inject into the skin, Disp: , Rfl: Insulin Lispro, 1 Unit Dial, (HUMALOG) 100 UNIT/ML SOPN, Insulin Lispro (Humalog Kwikpen Insulin) 100 unit/mL Insulin Pen Active 0 UNIT SC BEFORE MEALS AND AT BEDTIME June 08, 2022 1:00am, Disp: , Rfl: loratadine (CLARITIN) 10 MG tablet, , Disp: , Rfl: metFORMIN (GLUCOPHAGE-XR) 500 MG ER tablet, Take by mouth, Disp: , Rfl: montelukast (SINGULAIR) 10 MG tablet, , Disp: , Rfl: nystatin (MYCOSTATIN) [id number] UNIT/ML oral suspension, swish and swallow 5 milliliters by mouth four times a day until finished, Disp: , Rfl: [id number] Ethyl Esters 1 g CAPS, , Disp: , Rfl: trimethoprim-polymyxin b (POLYTRIM) 65990-3.1 UNIT/ML-% ophthalmic solution, instill 1 drop into right eye every 4 hours for 10 days, Disp: , Rfl: rivaroxaban (XARELTO) 20 MG TABS tablet, Take by mouth, Disp: , Rfl: INCRUSE ELLIPTA 62.5 MCG/ACT AEPB, , Disp: , Rfl: venlafaxine (EFFEXOR-XR) 150 MG XR capsule, Take by mouth, Disp: , Rfl: amitriptyline (ELAVIL) 25 MG tablet, Take by mouth, Disp: , Rfl: buPROPion (WELLBUTRIN) 100 MG tablet, Take 2 Tablets (200 mg) by mouth 2 times daily, Disp: , Rfl: Docusate Sodium (DSS) 100 MG CAPS, Take 1 Capsule (100 mg) by mouth 2 times daily, Disp: , Rfl: Glimepiride (AMARYL) 4 MG TABS, Take 1 Tablet (4 mg) by mouth every morning (before breakfast), Disp: , Rfl: omeprazole (PRILOSEC) 20 MG capsule, Take 2 Capsules (40 mg) by mouth daily, Disp: , Rfl: pravastatin (PRAVACHOL) 40 MG tablet, Take 1 Tablet (40 mg) by mouth daily, Disp: , Rfl: pregabalin (LYRICA) 100 MG capsule, Take 3 Capsules (300 mg) by mouth 2 times daily, Disp: , Rfl: QUEtiapine (SEROQUEL) 100 MG tablet, Take 1 Tablet (100 mg) by mouth 2 times daily, Disp: , Rfl: traZODone (DESYREL) 50 MG tablet, Take 1 Tablet (50 mg) by mouth nightly at bedtime, Disp: , Rfl: silver sulfADIAZINE (SILVADENE) 1 % CREA cream, Apply to affected area as needed for Other (Dressing Change) for up to 30 days Patient apply to affected area daily., Disp: 400 g, Rfl: 0 Current Facility-Administered Medications: silver sulfADIAZINE (SILVADENE) 1 % cream, , Topical, Once, Eliana Salazar PA-C DRUG/FOOD ALLERGIES: Allergies Allergen Reactions Enoxaparin Itching Varenicline Other (See Comments) Per pt mental issues made her go crazy Heparin Itching and Rash Azithromycin Hives SOCIAL/FAMILY HISTORY: Kamini has help for wound care. Special Needs: None Preferred Language: Chilean Tetanus: UTD 10/05/22 Social History Tobacco Use Smoking status: Every Day Types: Cigarettes Smokeless tobacco: Never Vaping Use Vaping Use: Never used Substance Use Topics Alcohol use: Never Drug use: Never History reviewed. No pertinent family history. VITAL SIGNS: Vitals: 02/21/23 1008 BP: 140/63 Patient Position: Sitting Pulse: 67 Resp: 20 Temp: 36.1 C (97 F) Weight: (!) 119.2 kg Height: 157.5 cm PHYSICAL EXAM: General: Kamini appears well developed, well nourished, in no acute distress, cooperative, alert, and interactive Head/Face: atraumatic and normocephalic Neurologic: alert, oriented appropriately for age Eyes: sclera and conjunctiva clear Ears: external ears normal Nose: nares patent without discharge Neck: there is full range of motion Chest/Respiratory: easy, non-labored breathing Cardiac: regular rate, warm and well perfused Integumentary: previous shaffer to right middle finger and on right 2nd finger are dry and scabbed. Newest burn to right 2nd finger is pink and yellow in color with well defined borders; likely full thickness. No spreading redness, streaking or purulent drainage. No cellulitis. Extremities: spontaneously moving all extremities DIAGNOSIS: Kamini is a 57 y.o. female with total TBSA: 0.11% TBSA from Contact in distribution documented above. PROCEDURES: Local wound care by nursing and Dressing application by nursing PLAN: Medical Decision Making/ Risk of Complications: Low/Moderate Reviewed prior notes: Yes Extensive history: No Wound Care: Wash gently with a mild soap and water every day. Apply Silvadene to burn wounds daily until otherwise directed. Pruritis: N/A Pain Medication: Continue Tylenol prn Nutrition: Pt educated on increasing daily caloric and protein intake to promote wound healing Tetanus: UTD Activity/Work: ad lisa; perform range of motion exercises with fingers to promote optimal range of motion. PT/OT: will continue to monitor. Demonstrating good range of motion on examination today. Follow up: 1 week in [facility] Education: Reviewed signs and symptoms of infection to include fever, redness or swelling extending outside of the burn, or purulent drainage. Sun Precautions: instructed patient to take sun precautions for the next year. Apply sunscreen to healed wound every hour while the pt is outside in the sun. PHQ9: Total Score 5. Hx of depression/anxiety. Is on medication. Denies thoughts of self-harm, harm to others or SI. Will continue to monitor. Surgical Intervention: will trial a week of better wound care and a change in ointment and reassess at her next visit. Time spent on encounter (including history, PE, assessment of prior notes/tests and medical management/education was 30 minutes Cellulitis: No Antibiotics: No Grafted: No Date: N/A EDUCATION: Discussed with patient/family depth of burn wounds, expected healing time for burn wounds, and signs and symptoms of infection. Understanding voiced. 10:34 AM 02/21/2023 Eliana Salazar PA-C documented in this encounter [facility] 02-18-2023 Note HNO ID: [id number] Author: Brittany Gallegos APRN.[employer]SI[employer]IVING MANAGER Service: ? Author Type: Nurse Practitioner Type: Progress Notes Filed: 02/18/2023 7:18 PM Note Text: SUBJECTIVE: Kamini Irby is a 57 year old female. Who presents today with pink eye. She has no vision changes and no fb sensation and no pain. She has had a goopy eye since this am. She has not been exposed to anyone with pink eye. She also has mult shaffer to the right index finger and middle finger. The shaffer are in mult stages of healing. As some are new and some are old. She is seeing the burn center at [facility] but cant get in till mar 15. 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 She is also concerned about thrush today. She has a white plaque on her tongue and has recently had lots of antibiotic use. HPI No past medical history on file. No family history on file. Social History Tobacco Use Smoking status: Every Day Packs/day: 1 Types: Cigarettes Vaping Use Vaping Use: Never used Substance Use Topics Alcohol use: Not Currently Drug use: Not Currently ALLERGIES Allergen Reactions Lovenox [Enoxaparin] Itching Current Outpatient Medications Medication Sig Dispense Refill acetaminophen 650 mg CR tablet VENTOLIN HFA 90 mcg/actuation inhaler ALPRAZolam ER (XANAX XR) 3 mg 24 hr tablet ONETOUCH ULTRA TEST test strip buPROPion SR (ZYBAN SR; WELLBUTRIN SR) 150 mg 12 hr tablet FARXIGA 5 mg tablet diclofenac, EC, (VOLTAREN) 75 mg EC tablet fluticasone propion-salmeterol 232-14 mcg/actuation furosemide (LASIX) 40 mg tablet glimepiride (AMARYL) 4 mg tablet MUCUS RELIEF ER 1,200 mg Ta12 LANTUS SOLOSTAR U-100 INSULIN 100 unit/mL (3 mL) loratadine (CLARITIN) 10 mg tablet metFORMIN ER (GLUCOPHAGE XR) 500 mg 24 hr tablet montelukast (SINGULAIR) 10 mg tablet fluticasone (FLONASE) 50 mcg/actuation nasal spray insulin lispro (HUMALOG KWIKPEN) 100 unit/mL Insulin Lispro (Humalog Kwikpen Insulin) 100 unit/mL Insulin Pen Active 0 UNIT SC BEFORE MEALS AND AT BEDTIME June 08, 2022 1:00am omega-3 acid ethyl esters (LOVAZA) 1 gram capsule pravastatin (PRAVACHOL) 40 mg tablet pregabalin (LYRICA) 300 mg capsule XARELTO 20 mg tablet traZODone (DESYREL) 50 mg tablet venlafaxine ER (EFFEXOR XR) 150 mg 24 hr capsule ALPRAZolam ER (XANAX XR) 2 mg 24 hr tablet (Patient not taking: Reported on 02/18/2023) pravastatin (PRAVACHOL) 40 mg tablet (Patient not taking: Reported on 02/18/2023) No current facility-administered medications for this visit. OBJECTIVE: BP 142/82 Pulse 74 Temp 36.2 ?C (97.2 ?F) (Tympanic) Resp 18 Wt 121.2 kg (267 lb 3.2 oz) SpO2 93% BMI 48.87 kg/m? ROS all other systems reviewed and are negative Physical Exam Constitutional: Well developed, well nourished, NAD, AANDO X3. ENT: Head is atraumatic, airway patent, mucosal membranes moist tongue has a thick white plaque Eyes: EOMI, PERRL, no drainage, vision unchanged right conjunctiva is pink + watery no purulent discharge is noted. Neck: supple with no palpable lymph nodes Cardiac: Heart tone normal rate and rhythm Respiratory: Breath sounds clear : no CVA tenderness MS: no swelling, tenderness or deformity in upper or lower extremities, no midline tenderness in cervical, thoracic or lumbar spine. Index and middle finger with shaffer in different stages of healing. The tip of the middle finger has an area of eschar smaller than a dime. Patient states it has been there for months. The index finger has a deep healing burn that is the length of the finger. Granulation tissue is noted no signs of cellulitis Neuro: strength sensation and coordination intact. CN II-XII grossly intact, Skin: warm and dry with out rash, lesion or ecchymosis on exposed skin Psych: alert appropriate, speech clear It was a pleasure to take care of Kamini Irby today. For her pink eye, antibiotic eye drops will be sent in. She will be prescribed nystatin for the thrush. For her shaffer she will continue to keep them clean and dry. She will call the burn center at [facility] and make an appointment. She will also be careful about cooking and continuing to burn herself. Patient and her daughter have v/understanding of the plan of care and are in agreement. Patient will follow up with family physician. They may return to the Urgent Care or go to the ER for worsening symptoms or concerns. Patient verbalized understanding of plan of care and is in agreement. ASSESSMENT/PLAN: 1. Bacterial conjunctivitis - ICD9: 372.39, 041.9, ICD10: H10.9 (primary diagnosis) - POLYMYXIN B SULFATE 10,000 UNIT-TRIMETHOPRIM 1 MG/ML EYE DROPS 2. Thrush - ICD9: 112.0, ICD10: B37.0 - NYSTATIN 100,000 UNIT/ML ORAL SUSPENSION 3. Shaffer of multiple specified sites - ICD9: 946.0, ICD10: T30.0 Brittany Gallegos APRN.[facility] 02-18-2023 History of Present illness Narrative SUBJECTIVE: Kamini Irby is a 57 year old female. Who presents today with pink eye. She has no vision changes and no fb sensation and no pain. She has had a goopy eye since this am. She has not been exposed to anyone with pink eye. She also has mult shaffer to the right index finger and middle finger. The shaffer are in mult stages of healing. As some are new and some are old. She is seeing the burn center at [facility] but cant get in till mar 15. 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 She is also concerned about thrush today. She has a white plaque on her tongue and has recently had lots of antibiotic use. HPI No past medical history on file. No family history on file. Social History Tobacco Use Smoking status: Every Day Packs/day: 1 Types: Cigarettes Vaping Use Vaping Use: Never used Substance Use Topics Alcohol use: Not Currently Drug use: Not Currently ALLERGIES Allergen Reactions Lovenox [Enoxaparin] Itching Current Outpatient Medications Medication Sig Dispense Refill acetaminophen 650 mg CR tablet VENTOLIN HFA 90 mcg/actuation inhaler ALPRAZolam ER (XANAX XR) 3 mg 24 hr tablet Outracks TechnologiesTOUCH ULTRA TEST test strip buPROPion SR (ZYBAN SR; WELLBUTRIN SR) 150 mg 12 hr tablet FARXIGA 5 mg tablet diclofenac, EC, (VOLTAREN) 75 mg EC tablet fluticasone propion-salmeterol 232-14 mcg/actuation furosemide (LASIX) 40 mg tablet glimepiride (AMARYL) 4 mg tablet MUCUS RELIEF ER 1,200 mg Ta12 LANTUS SOLOSTAR U-100 INSULIN 100 unit/mL (3 mL) loratadine (CLARITIN) 10 mg tablet metFORMIN ER (GLUCOPHAGE XR) 500 mg 24 hr tablet montelukast (SINGULAIR) 10 mg tablet fluticasone (FLONASE) 50 mcg/actuation nasal spray insulin lispro (HUMALOG KWIKPEN) 100 unit/mL Insulin Lispro (Humalog Kwikpen Insulin) 100 unit/mL Insulin Pen Active 0 UNIT SC BEFORE MEALS AND AT BEDTIME June 08, 2022 1:00am omega-3 acid ethyl esters (LOVAZA) 1 gram capsule pravastatin (PRAVACHOL) 40 mg tablet pregabalin (LYRICA) 300 mg capsule XARELTO 20 mg tablet traZODone (DESYREL) 50 mg tablet venlafaxine ER (EFFEXOR XR) 150 mg 24 hr capsule ALPRAZolam ER (XANAX XR) 2 mg 24 hr tablet (Patient not taking: Reported on 02/18/2023) pravastatin (PRAVACHOL) 40 mg tablet (Patient not taking: Reported on 02/18/2023) No current facility-administered medications for this visit. OBJECTIVE: BP 142/82 Pulse 74 Temp 36.2 C (97.2 F) (Tympanic) Resp 18 Wt 121.2 kg (267 lb 3.2 oz) SpO2 93% BMI 48.87 kg/m ROS all other systems reviewed and are negative Physical Exam Constitutional: Well developed, well nourished, NAD, A&O X3. ENT: Head is atraumatic, airway patent, mucosal membranes moist tongue has a thick white plaque Eyes: EOMI, PERRL, no drainage, vision unchanged right conjunctiva is pink + watery no purulent discharge is noted. Neck: supple with no palpable lymph nodes Cardiac: Heart tone normal rate and rhythm Respiratory: Breath sounds clear : no CVA tenderness MS: no swelling, tenderness or deformity in upper or lower extremities, no midline tenderness in cervical, thoracic or lumbar spine. Index and middle finger with shaffer in different stages of healing. The tip of the middle finger has an area of eschar smaller than a dime. Patient states it has been there for months. The index finger has a deep healing burn that is the length of the finger. Granulation tissue is noted no signs of cellulitis Neuro: strength sensation and coordination intact. CN II-XII grossly intact, Skin: warm and dry with out rash, lesion or ecchymosis on exposed skin Psych: alert appropriate, speech clear It was a pleasure to take care of Kamini Irby today. For her pink eye, antibiotic eye drops will be sent in. She will be prescribed nystatin for the thrush. For her shaffer she will continue to keep them clean and dry. She will call the burn center at [facility] and make an appointment. She will also be careful about cooking and continuing to burn herself. Patient and her daughter have v/understanding of the plan of care and are in agreement. Patient will follow up with family physician. They may return to the Urgent Care or go to the ER for worsening symptoms or concerns. Patient verbalized understanding of plan of care and is in agreement. ASSESSMENT/PLAN: 1. Bacterial conjunctivitis - ICD9: 372.39, 041.9, ICD10: H10.9 (primary diagnosis) - POLYMYXIN B SULFATE 10,000 UNIT-TRIMETHOPRIM 1 MG/ML EYE DROPS 2. Thrush - ICD9: 112.0, ICD10: B37.0 - NYSTATIN 100,000 UNIT/ML ORAL SUSPENSION 3. Shaffer of multiple specified sites - ICD9: 946.0, ICD10: T30.0 Brittany Gallegos APRN.[employer]SI[employer]IVING MANAGER documented in this encounter [facility] 10-09-2022 Note . MICRO - Microbiology PROCEDURE: Blood Culture (bacterial) [*1] SOURCE: Blood BODY SITE: COLLECTED DATE/TIME: 10/04/2022 13:53 EDT RECEIVED DATE/TIME: 10/04/2022 19:21 EDT START DATE/TIME: 10/04/2022 19:21 EDT FREE TEXT SOURCE: FINAL REPORTS Final Report [] Verified Date/Time/Personnel: 10/09/2022 19:59 EDT Blood Culture: No Growth at 5 days. PRELIMINARY REPORTS Preliminary Report [] Verified Date/Time/Personnel: 10/04/2022 19:59 EDT Culture has been received in lab and is no growth to date. Routine cultures are held for 5 days. Performing Locations *1: This test was performed at: [address], [facility] , [facility] ([place]) 10-09-2022 Note . MICRO - Microbiology PROCEDURE: Blood Culture (bacterial) [*1] SOURCE: Blood BODY SITE: COLLECTED DATE/TIME: 10/04/2022 13:53 EDT RECEIVED DATE/TIME: 10/04/2022 19:21 EDT START DATE/TIME: 10/04/2022 19:21 EDT FREE TEXT SOURCE: FINAL REPORTS Final Report [] Verified Date/Time/Personnel: 10/09/2022 19:59 EDT Blood Culture: No Growth at 5 days. PRELIMINARY REPORTS Preliminary Report [] Verified Date/Time/Personnel: 10/04/2022 19:59 EDT Culture has been received in lab and is no growth to date. Routine cultures are held for 5 days. Performing Locations *1: This test was performed at: [address], [facility] , [facility] ([facility] 10-07-2022 Note . MICRO - Microbiology PROCEDURE: Culture Wound Aerobic with Gram Stain [*1] SOURCE: Wound (surface) BODY SITE: Hand L COLLECTED DATE/TIME: 10/04/2022 13:53 EDT RECEIVED DATE/TIME: 10/04/2022 19:29 EDT START DATE/TIME: 10/04/2022 19:29 EDT FREE TEXT SOURCE: FINAL REPORTS Final Report [] Verified Date/Time/Personnel: 10/07/2022 07:49 EDT Few Group A Beta Hemolytic Strep (Strep pyogenes) Sensitivity testing is not recommended for one of the following reasons: 1. Established susceptibility patterns are available or 2. Interpretative criteria are not available. 2 colonies Methicillin-Resistant Staphylococcus aureus This staphylococci does not demonstrate inducible clindamycin resistance in vitro. PRELIMINARY REPORTS Preliminary Report [] Verified Date/Time/Personnel: 10/06/2022 09:45 EDT Few Group A Beta Hemolytic Strep (Strep pyogenes) Sensitivity testing is not recommended for one of the following reasons: 1. Established susceptibility patterns are available or 2. Interpretative criteria are not available. 2 colonies Staphylococcus aureus FLYNN to follow Preliminary Report [] Verified Date/Time/Personnel: 10/05/2022 09:40 EDT Culture results pending. STAINS GS [] Verified Date/Time/Personnel: 10/04/2022 20:19 EDT No organisms seen. SUSCEPTIBILITY RESULTS Methicillin-Resistant Staphylococcus aureus Antibiotic FLYNN Dilut FLYNN Inter Ampicillin/ <=8/4 Resistant Sulbactam Azithromycin >4 Resistant Cefepime 16 Resistant Cefotaxime <=8 Resistant Ceftaroline <=0.5 Susceptible Ceftriaxone 8 Resistant Ciprofloxacin >2 Resistant Clindamycin <=0.25 Susceptible Daptomycin <=0.5 Susceptible Erythromycin >4 Resistant Imipenem <=4 Resistant Levofloxacin >4 Resistant Linezolid 2 Susceptible Meropenem <=2 Resistant Oxacillin >2 Resistant Penicillin >2 Resistant Rifampin <=1 Susceptible Tetracycline <=4 Susceptible MICRO - Microbiology SUSCEPTIBILITY RESULTS Methicillin-Resistant Staphylococcus aureus Antibiotic FLYNN Dilut FLYNN Inter Trimethoprim/ <=0.5/9.5 Susceptible Sulfa Vancomycin 1 Susceptible Performing Locations *1: This test was performed at: [address], [facility] , [facility] ([place]) 10-06-2022 Note HNO ID: [id number] Author: Anya Garza DO Service: Hospital Medicine Author Type: Physician Type: Progress Notes Filed: 10/12/2022 2:57 PM Note Text: Documentation Query Based on your medical judgment of the clinical indicators outlined below, please clarify the condition: (Please type X next to your response and sign) Please choose the clarification below as appropriate: The attending physician is required to clarify conflicting documentation in the medical record. The following documentation is noted in the medical record: Diagnosis 1: Left hand cellulitis 10/[address] Nichole/Dr. Andrews Diagnosis 2: right hand cellulitis 10/[address] Garza Clinical indicators 10/[address] Mcgee Wound Infection: Pt to ED with c/o infection to L hand 10/05 Imaging Technique: XR HAND 3V PA/LAT/OBL LT -- LEFT with 3 views on 3 images No acute findings.No radiographic evidence of osteomyelitis Please clarify the appropriate diagnosis for this patient. x Left hand cellulitis Right hand cellulitis Other, please specify [facility] 10-06-2022 Note HNO ID: [id number] Author: Eliana Knight RN Service: Care Management Author Type: Registered Nurse Type: Care Mgt Progress Note Filed: 10/06/2022 12:35 PM Note Text: CARE MANAGEMENT DISCHARGE NOTE SERVICE DATE: October 06, 2022 SERVICE TIME: 12:33 PM Admission Date: 10/05/2022 LOS: 1 day Discharge Arrangement Discharge Arrangement: Home with Self Care Services Arranged Provider Name: ANGIE Phone: NA Caregiver Assessment Caregiver is ready, willing and able to meet the patient's needs as recommended by the inter-professional team: No Caregiver needed Transportation Arrangements Transportation Arrangements: Car Destination: Home Handoff Communication: Handoff to: Primary Care Physician Primary Care Physician Name/Phone: Dr Sloan [phone] Additional Information: Patient is from home with at baseline. However, has recently been staying with daughter to help with the grandchildren. Does not drive. Depends on family for transportation. 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 Uses [facility]. Patient is discharging home with self care. Family to transport. SIGNATURE: Eliana Knight RN PATIENT NAME: Kamini Irby DATE: October 06, 2022 TIME: 12:33 PM CONTACT #: [phone] [facility] 10-06-2022 Note HNO ID: [id number] Author: Hugo Holt RN Service: Nursing Author Type: Registered Nurse Type: Nursing Progress Note Filed: 10/06/2022 12:23 PM Note Text: Hot moist compress applied to left hand 1220: Hot moist compress applied to left hand again [facility] 10-05-2022 Note HNO ID: [id number] Author: Abdifatah Martínez MD Service: Orthopaedic Surgery Author Type: Resident Type: Plan of Care Filed: 10/05/2022 5:18 PM Note Text: Patient seen and examined. Patient has been on IV antibiotics. She has noticed improvement in the erythema and pain. Her hand is less erythematous compared to this morning. She has decent movement in her thumb. She has sensation in her thumb. She has not had drainage. No active drainage currently. No palpable abscess. Patient should follow-up with 's office. No further orthopedic surgery intervention indicated. To sign off, please reach out to [phone] with any questions or concerns. Abdifatah Martínez MD October 05, 2022 5:18 PM [facility] 10-04-2022 Hospital Discharge instructions Patient Education 10/04/2022 18:12:10 ABSCESS, Abx Only Abscess (Antibiotic Treatment Only) An abscess (sometimes called a boil ) occurs when bacteria get trapped under the skin and begin to grow. Pus forms inside the abscess as the body responds to the bacteria. An abscess can occur with an insect bite, ingrown hair, blocked oil gland, pimple, cyst, or puncture wound. In the early stages, redness and tenderness are the only symptoms. Sometimes, this stage can be treated with antibiotics alone. If the abscess does not respond to antibiotic treatment, it will need to be drained with a small cut, under local anesthesia. Home care The following will help you care for your abscess at home: Soak the wound in hot water or apply hot packs (small towel soaked in hot water) to the area for 20 minutes at a time. Do this three to four times a day. Apply antibiotic cream or ointment onto the skin 3-4 times a day, unless something else was prescribed. Some ointments include an antibiotic plus a local pain reliever. If your doctor prescribed antibiotics, do not stop taking this medication until you have finished the prescribed course or the doctor tells you to stop. You may use an bhge-kuz-jmpnzgd pain medication to control pain, unless another pain medicine was prescribed. If you have chronic liver or kidney disease or ever had a stomach ulcer or GI bleeding, talk with your doctor before using these any of these. Follow-up care Follow up with your health care provider as advised by our staff. Look at your wound each day for the signs of worsening infection listed below. When to seek medical advice Call your health care provider right away if any of these occur: An increase in redness or swelling Red streaks in the skin leading away from the abscess An increase in local pain or swelling Fever of 100.4 F (38 C) or higher, or as directed by your health care provider Pus or fluid coming from the abscess [id number] [employer]. [address] [place] [address]. All rights reserved. This information is not intended as a substitute for professional medical care. Always follow your healthcare professional's instructions. Follow Up Care 10/04/2022 13:39:54 With:ILEANA TAI DO, Orthopedic Address: [address] [place] [phone] When:2-4 days With:Go to emergency room if symptoms worsen Address:Unknown When:2-4 days With:PK SLOAN DO Address: [address] [place] [phone] When:2-4 days [facility] 10-04-2022 Note Discharge Instructions Thank you for allowing [facility] to assist you with your healthcare needs. The following is important discharge information regarding your hospital visit. Diagnosis from Today's Visit Abscess of left hand Hand injury treatment What to Do Next Instructions from Your Care Team No qualifying data available. Post Acute Orders No qualifying data available. You Need to Schedule the Following Appointments Follow Up with ILEANA TAI DO, Orthopedic When Within 2-4 days Where: [address] [place] [phone] Follow Up with Go to emergency room if symptoms worsen When Within 2-4 days Follow Up with PK SLOAN DO When Within 2-4 days Where: [address] [place] [phone] Allergies Chantix (Unknown) Lovenox Medications Please ask your primary doctor or pharmacist before taking any other medication not listed, including over the counter drugs, herbal medications, vitamins and or supplements as they may interact with your home medications. What How Much When Why Instructions Last Dose New sulfamethoxazole-trimethoprim (Bactrim DS 800 mg-160 mg oral tablet) 1 tab(s) by mouth Two (2) times a day Abscess of left hand Duration: 7 Days Printed Prescription Unchanged acetaminophen (acetaminophen 650 mg oral tablet, extended release) 2 tab(s) by mouth Three (3) times a day PRN as needed for pain Unchanged albuterol (albuterol MDI (90 mcg/ inh) CFC free inhalation aerosol) 1 puff(s) by inhalation Every 4 hours as needed for as needed for wheezing Acute bacterial bronchitis Unchanged albuterol (albuterol 2.5 mg/ 3 mL (0.083%) inhalation solution) 3 Milliliter by inhalation Four (4) times a day Acute bacterial bronchitis Duration: 30 Days Unchanged ALPRAZolam (ALPRAZolam 0.5 mg oral tablet) 1 tab(s) by mouth Two (2) times a day as needed for as needed for anxiety Anxiety Duration: 30 Days Unchanged atenolol (atenolol 100 mg oral tablet) 1 tab(s) by mouth Once a day Duration: 90 Days Unchanged buPROPion (buPROPion 150 mg/ 12 hours (SR) oral tablet, extended release) 1 tab(s) by mouth Two (2) times a day Anxiety depression Unchanged dapagliflozin (Farxiga 5 mg oral tablet) 1 tab(s) by mouth Once a day Diabetes mellitus Unchanged diclofenac (diclofenac sodium 75 mg oral delayed release tablet) 1 tab(s) by mouth Two (2) times a day Right shoulder pain with food Unchanged DME (Alcohol Swabs) See instructions Diabetes mellitus Use 1 swab twice daily to inject insulin. Unchanged DME (Blood Glucose Test Machine) See instructions Diabetes mellitus Use as directed daily Unchanged DME (Blood Glucose Test Machine) See instructions Diabetes mellitus Dispense 1 glucometer, use as directed to test blood sugar once daily Unchanged DME (Blood Glucose Test Strips) See instructions Diabetes mellitus Dispense glucose test strips, #100, UAD daily to test blood sugar Unchanged DME (DME MISCellaneous) See instructions Urinary incontinence in female Osteoarthritis of right hip Dispense reusable incontinence bed pads, #6 pads, use as directed at bedtime Unchanged DME (Lancets) See instructions Diabetes mellitus Dispense ultrafine lancets, #200, UAD twice daily to check blood sugar Unchanged DME (Pen needles 4 mm) See instructions Diabetes mellitus Use 1 pen needle twice daily to inject insulin Unchanged docusate (docusate sodium 100 mg oral capsule) 2 cap by mouth Two (2) times a day as needed for as needed for constipation Unchanged ferrous sulfate (ferrous sulfate 325 mg (65 mg elemental iron) oral tablet) 1 tab(s) by mouth Once a day Duration: 90 Days Unchanged fexofenadine (fexofenadine 180 mg oral tablet) 1 tab(s) by mouth Every day as needed for as needed for allergy symptoms Seasonal allergies Unchanged fluticasone nasal (fluticasone proprionate NASAL 50 mcg/ spray) 2 spray(s) each nostril Two (2) times a day Unchanged fluticasone-salmeterol (fluticasone-salmeterol 232 mcg-14 mcg/ inh inhalation powder) 1 puff by inhalation Two (2) times a day Unchanged furosemide (furosemide 40 mg oral tablet) 1 tab(s) by mouth Once a day Unchanged glimepiride (glimepiride 4 mg oral tablet) 1 tab(s) by mouth Once a day Unchanged insulin glargine (Basaglar 100 unit(s)/ mL 3 mL KwikPen) 60 unit(s) Subcutaneous Two (2) times a day Duration: 90 Days Unchanged metFORMIN (MetFORMIN (Eqv-Glucophage XR) 500 mg oral tablet, EXTENDED RELEASE) 2 tab(s) by mouth Two (2) times a day Duration: 90 Days Unchanged Misc Medication (ONETOUCH KELLY ULTRA BL) Unchanged montelukast (montelukast 10 mg oral tablet) 1 tab(s) by mouth Once a day Unchanged omega-3 polyunsaturated fatty acids (Lovaza 1000 mg oral capsule) 2 cap by mouth Two (2) times a day Mixed hyperlipidemia Unchanged omeprazole (omeprazole 40 mg oral delayed release capsule) 1 cap by mouth Once a day Duration: 90 Days Unchanged pravastatin (pravastatin 40 mg oral tablet) See instructions TAKE 1 TABLET AT BEDTIME Unchanged pregabalin (Lyrica 300 mg oral capsule) 1 cap by mouth Two (2) times a day Anxiety Duration: 90 Days Unchanged QUEtiapine (QUEtiapine 100 mg oral tablet) 1 tab(s) by mouth Daily at bedtime Unchanged rivaroxaban (Xarelto 20 mg oral tablet) 1 tab(s) by mouth Once a day (in the evening) Duration: 90 Days with evening meal Unchanged traZODone (traZODone 50 mg oral tablet) 1 tab(s) by mouth Daily at bedtime Unchanged umeclidinium (Incruse Ellipta 62.5 mcg/ inh inhalation powder) Unchanged venlafaxine (venlafaxine 150 mg oral capsule, extended release) 2 cap by mouth Once a day Duration: 90 Days Please take this list to your next doctor s visit. Bring all medications you take, including over the counter medications, herbals and other supplements with you to your doctor s visit. Patients and families are reminded to discard old lists and to update any records with all medication providers or retail pharmacies. Medication Leaflets sulfamethoxazole and trimethoprim (oral/injection) (SUL fa meth OX a zole and trye METH oh prim) Bactrim, Bactrim DS, SMZ-TMP DS, Sulfatrim Pediatric What is the most important information I should know about sulfamethoxazole and trimethoprim? Use only as directed. Tell your doctor if you use other medicines or have other medical conditions or allergies. What is sulfamethoxazole and trimethoprim? Sulfamethoxazole and trimethoprim is a combination antibiotic used to treat ear infections, urinary tract infections, bronchitis, traveler's diarrhea, shigellosis, and Pneumocystis jiroveci pneumonia. Sulfamethoxazole and trimethoprim may also be used for purposes not listed in this medication guide. What should I discuss with my healthcare provider before using sulfamethoxazole and trimethoprim? You should not use this medicine if you are allergic to sulfamethoxazole or trimethoprim, or if you have: severe liver disease; kidney disease that is not being treated or monitored; anemia (low red blood cells) caused by folic acid deficiency; a history of low blood platelets after taking trimethoprim or any sulfa drug; or if you take dofetilide. May cause defects. Do not use if you are . Tell your doctor if you become . Do not breastfeed. This medicine should not be given to a child younger than 2 months old. Tell your doctor if you have ever had: kidney or liver disease; a folate (folic acid) deficiency; asthma or severe allergies; HIV or AIDS; a thyroid disorder; malnourishment; alcoholism; an electrolyte imbalance (such as low blood sodium or high potassium); porphyria, or zndhhin-3-blpchajhl dehydrogenase (G6PD) deficiency; or if you use a blood thinner (such as warfarin) and you have routine 'INR' or prothrombin time tests. How should I use sulfamethoxazole and trimethoprim? Follow all directions on your prescription label and read all medication guides or instruction sheets. Use the medicine exactly as directed. Sulfamethoxazole and trimethoprim oral is taken by mouth. Shake the oral suspension (liquid). Measure a dose with the supplied measuring device (not a kitchen spoon). Sulfamethoxazole and trimethoprim injection is given in a vein. Be sure you understand how to properly mix this medicine with a liquid (diluent) and how to store the mixture. Ask your doctor or pharmacist if you don't understand how to use an injection. Prepare an injection only when you are ready to give it. Call your pharmacist if the medicine looks cloudy, has changed colors, or has particles in it. Mixed medicine must be used within 2 to 6 hours depending on the amount of diluent in the mixture. Follow your doctor's instructions. Do not refrigerate mixed medicine. Do not reuse a needle or syringe. Place them in a puncture-proof 'sharps' container and dispose of it following state or local laws. Keep out of the reach of children and pets. Drink plenty of fluids to prevent kidney stones. Antibiotic medicines can cause diarrhea. Tell your doctor if you have diarrhea that is watery or bloody. Keep using this medicine even if your symptoms quickly improve. Skipping doses could make your infection resistant to medication. Sulfamethoxazole and trimethoprim will not treat a viral infection (flu or a common cold). You may need blood and urine tests, and this medicine may be stopped based on the results. Store at room temperature away from moisture, heat, and light. Do not refrigerate. What happens if I miss a dose? Use the medicine as soon as you can, but skip the missed dose if it is almost time for your next dose. Do not use two doses at one time. What happens if I overdose? Seek emergency medical attention or call the Poison Help line at . Overdose symptoms may include loss of appetite, vomiting, fever, blood in your urine, yellowing of your skin or eyes, confusion, or loss of consciousness. What should I avoid while using sulfamethoxazole and trimethoprim? If you use the injection form of this medicine, do not eat or drink anything that contains propylene glycol (an ingredient in many processed foods, soft drinks, and medicines). Dangerous effects could occur. Sulfamethoxazole and trimethoprim could make you sunburn more easily. Avoid sunlight or tanning beds. Wear protective clothing and use sunscreen (SPF 30 or higher) when you are outdoors. What are the possible side effects of sulfamethoxazole and trimethoprim? Get emergency medical help if you have signs of an allergic reaction (hives, cough, chest pain, shortness of breath, swelling in your face or throat) or a severe skin reaction (fever, sore throat, burning eyes, skin pain, red or purple skin rash with blistering and peeling). Seek medical treatment if you have a serious drug reaction that can affect many parts of your body. Symptoms may include: skin rash, fever, swollen glands, joint pain, muscle aches, severe weakness, pale skin, unusual bruising, or yellowing of your skin or eyes. Call your doctor at once if you have: severe stomach pain, diarrhea that is watery or bloody (even if it occurs months after your last dose); any skin rash, no matter how mild; yellowing of your skin or eyes; a seizure; new or unusual joint pain; increased or decreased urination; swelling, bruising, or irritation around the IV needle; increased thirst, dry mouth, fruity breath odor; new or worsening cough, fever, trouble breathing; high blood potassium--nausea, weakness, tingly feeling, chest pain, irregular heartbeats, loss of movement; low blood sodium--headache, confusion, problems with thinking or memory, weakness, feeling unsteady; or low blood cell counts--fever, chills, mouth sores, skin sores, easy bruising, unusual bleeding, pale skin, cold hands and feet, feeling light-headed or short of breath. Common side effects may include: nausea, vomiting, loss of appetite; or skin rash. This is not a complete list of side effects and others may occur. Call your doctor for medical advice about side effects. You may report side effects to FDA at 8-492-XYM-5969. What other drugs will affect sulfamethoxazole and trimethoprim? You may need more frequent check-ups or medical tests if you also use medicine to treat depression, diabetes, seizures, or HIV. Tell your doctor about all your current medicines. Many drugs can affect sulfamethoxazole and trimethoprim, especially: amantadine, digoxin, cyclosporine, indomethacin, leucovorin, methotrexate, procainamide, pyrimethamine; an 'ALLEN inhibitor' heart or blood presure medication (benazepril, enalapril, lisinopril, quinapril, ramipril, and others); or a diuretic or 'water pill'. This list is not complete and many other drugs may affect sulfamethoxazole and trimethoprim. This includes prescription and sqep-dya-plctazs medicines, vitamins, and herbal products. Not all possible drug interactions are listed here. Where can I get more information? Your pharmacist can provide more information about sulfamethoxazole and trimethoprim. Remember, keep this and all other medicines out of the reach of children, never share your medicines with others, and use this medication only for the indication prescribed. Every effort has been made to ensure that the information provided by [employer]') is accurate, up-to-date, and complete, but no guarantee is made to that effect. Drug information contained herein may be time sensitive. [employer] information has been compiled for use by healthcare practitioners and consumers in the [place] and therefore [employer] does not warrant that uses outside of the [place] are appropriate, unless specifically indicated otherwise. [employer]'s drug information does not endorse drugs, diagnose patients or recommend therapy. [employer] drug information is an informational resource designed to assist licensed healthcare practitioners in caring for their patients and/or to serve consumers viewing this service as a supplement to, and not a substitute for, the expertise, skill, knowledge and judgment of healthcare practitioners. The absence of a warning for a given drug or drug combination in no way should be construed to indicate that the drug or drug combination is safe, effective or appropriate for any given patient. [employer] does not assume any responsibility for any aspect of healthcare administered with the aid of information [employer] provides. The information contained herein is not intended to cover all possible uses, directions, precautions, warnings, drug interactions, allergic reactions, or adverse effects. If you have questions about the drugs you are taking, check with your doctor, nurse or pharmacist. Copyright 0913-1086 [employer] Version: .. Revision Date: 12/01/2020. Education Materials Abscess (Antibiotic Treatment Only) An abscess (sometimes called a boil ) occurs when bacteria get trapped under the skin and begin to grow. Pus forms inside the abscess as the body responds to the bacteria. An abscess can occur with an insect bite, ingrown hair, blocked oil gland, pimple, cyst, or puncture wound. In the early stages, redness and tenderness are the only symptoms. Sometimes, this stage can be treated with antibiotics alone. If the abscess does not respond to antibiotic treatment, it will need to be drained with a small cut, under local anesthesia. Home care The following will help you care for your abscess at home: Soak the wound in hot water or apply hot packs (small towel soaked in hot water) to the area for 20 minutes at a time. Do this three to four times a day. Apply antibiotic cream or ointment onto the skin 3-4 times a day, unless something else was prescribed. Some ointments include an antibiotic plus a local pain reliever. If your doctor prescribed antibiotics, do not stop taking this medication until you have finished the prescribed course or the doctor tells you to stop. You may use an rrec-sdr-yzntjtc pain medication to control pain, unless another pain medicine was prescribed. If you have chronic liver or kidney disease or ever had a stomach ulcer or GI bleeding, talk with your doctor before using these any of these. Follow-up care Follow up with your health care provider as advised by our staff. Look at your wound each day for the signs of worsening infection listed below. When to seek medical advice Call your health care provider right away if any of these occur: An increase in redness or swelling Red streaks in the skin leading away from the abscess An increase in local pain or swelling Fever of 100.4 F (38 C) or higher, or as directed by your health care provider Pus or fluid coming from the abscess [id number] [employer]. [address] [place] [address]149. All rights reserved. This information is not intended as a substitute for professional medical care. Always follow your healthcare professional's instructions. Additional Information VACCINATE! IT SAVES LIVES! Members of the community who have not yet received the COVID-19 vaccine and would like to receive it can visit one of [facility] vaccine clinics. There are many vaccine clinic locations within the [facility]. For locations and available times, please visit [email or web address] [email or web address] It is important to note that some COVID mobile vaccine clinics are held outdoors and may be canceled in rainy or stormy conditions. To learn more about pediatric vaccinations (ages 5-11), we invite you to visit the [facility] webpage. https://www.[email or web address]/p ages/4215-Zoupx-Ddterqbfisc-Freq sgnxdz-Pteus-Xveajfcav.html To learn more about the COVID-19 vaccine, we invite you to visit the CDC website for a list of frequently asked questions. https://www.cdc.gov/coronavirus/ 2019-ncov/vaccines/faq.html [facility] [employer] Patient Portal Access Instructions: Stay connected with your healthcare team and access your personal medical information anytime with the [facility] Patient Portal. If you would like a full copy of your medical records please contact the [facility] Medical Records Department Tuesday through Tuesday between 8a.m. and 4:30p.m. Please follow the directions below to access the portal: 1.Access the email account you provided upon registration to the [facility].2.Look for an invitation email from [facility].3.Open the email and access the invitation link: Accept Invitation to [facility].Fill in the required ruth to create your account. Sign into www.[employer] with your username and password that you created in the above steps to stay up to date. You can then view a summary of results, a summary of your visits, and the ability to download your summaries to your computer or send the information securely to a physician. Remember that your healthcare information is confidential, so carefully consider who you will allow to register on the [facility] Patient Portal for access to your information. You can also access the [facility] Patient Portal on the [employer]. Simply click on Health Records under Health Data and then click on the [facility] logo. HOW TO SAFELY DISPOSE OF PRESCRIPTION MEDICATIONS Please use one of the following methods to safely dispose of your unused medications. 1.Use a drug disposal kit: the drug disposal pouch allows you to safely discard your old and unused drugs. Ask your nurse to give you one when you are discharged.2.Visit a local take-back location: Many local pharmacies and police departments have programs that collect old and unwanted prescription drugs. Call your local pharmacy or go to http://RFEyeD.[employer]/3C6Jx9k to find one close to you.3.Make use of household items: Use cat litter or old coffee grounds to dispose medications if other options are not available. Mix your drugs with these household products, seal them in an airtight container and throw it into the garbage. Call [facility]: [phone] to be sure your drugs can be disposed of in this way. Some medicines may require a different approach.4.Never flush your medications down the toilet. IF YOU HAVE BEEN PRESCRIBED AN OPIOIDS FOR PAIN If you have been prescribed an opioid (such as hydrocodone, oxycodone or morphine), it is critical to understand the possible side effects and risks of opioid pain medications. Even when taken as directed, opioids can have several side effects including: Tolerance, meaning you might need to take more of a medication for the same pain relief. Nausea, vomiting and/or constipation. Sleepiness, dizziness, dry mouth, confusion, depression or itching. Physical dependence, meaning you have withdrawal symptoms when a medication is stopped ? this can develop within a few days. KNOW YOUR RESPONSIBILITIES It is important to know exactly how much and how often to take the opioid pain medications you are prescribed. Never take opioids in higher amounts or more often than prescribed. Do not combine opioids with alcohol or other drugs that cause drowsiness, such as benzodiazepines, also known as benzos, including diazepam and alprazolam, muscle relaxants or sleep aids. Never sell or share prescription opioids. This is illegal. Store opioids in a secure place and out of reach of others (including children, family, friends and visitors). The last page(s) of this document has been signed and retained as a CHART COPY Signatures Patient Education Materials ABSCESS, Abx Only Medication Leaflets sulfamethoxazole and trimethoprim (oral/injection) My discharge plan and instructions have been reviewed and explained to me and IGHADA LUCY understand my current condition and have read and understand these discharge instructions. I have received a written copy of the plan/instructions. If I have questions, I am aware that I should contact my doctor. Patient/Client Success Director Signature: Date/Time: Relationship to Patient: Witness Name/Signature: Date/Time: [facility] 10-04-2022 Note ORIGINAL EXAMINATION: THREE XRAY VIEWS OF THE LEFT THUMB 10/04/2022 2:25 pm COMPARISON: None. HISTORY: ORDERING SYSTEM PROVIDED HISTORY: Reason for Exam: infection base of thumb FINDINGS: No acute fracture or dislocation. There is soft tissue swelling predominantly over the distal metacarpal region. No radiopaque foreign body or aggressive osseous lesion. Mild degenerative changes. IMPRESSION: No acute osseous abnormality. Interpreted by: Conchita Og MD Preliminary Report By: Conchita Og MD Electronically signed By Conchita Og MD Dictated Date: 10/04/2022 2:32:02 PM Prelim Date: 10/04/2022 2:33:24 PM Sign Date: 10/04/2022 2:33:24 PM Ordering Provider: [facility] 10-04-2022 Note ORIGINAL EXAMINATION: THREE XRAY VIEWS OF THE LEFT THUMB 10/04/2022 2:25 pm COMPARISON: None. HISTORY: ORDERING SYSTEM PROVIDED HISTORY: Reason for Exam: infection base of thumb FINDINGS: No acute fracture or dislocation. There is soft tissue swelling predominantly over the distal metacarpal region. No radiopaque foreign body or aggressive osseous lesion. Mild degenerative changes. IMPRESSION: No acute osseous abnormality. Interpreted by: Conchita Og MD Preliminary Report By: Conchita Og MD Electronically signed By Conchita Og MD Dictated Date: 10/04/2022 2:32:02 PM Prelim Date: 10/04/2022 2:33:24 PM Sign Date: 10/04/2022 2:33:24 PM Ordering Provider: [facility] 10-31-2021 Hospital Discharge instructions Patient Education 10/31/2021 15:06:56 FRACTURE, Rib Rib Fracture You have a fracture (break) of one or more ribs. Rib fractures do not require a cast like other bones. They will heal by themselves in about 4-6 weeks. The first 3-4 weeks will be the most painful because deep breathing, coughing or changing position from sitting to lying down, may cause the broken ends to move slightly. Home Care: Rest. You should not be doing any heavy lifting or strenuous exertion until the pain goes away. Because it hurts to breathe when you have a broken rib, there is risk of getting pneumonia from poor airflow through your lungs. To prevent this: Take four very deep breaths at least four times a day (exhale through pursed lips as if you are blowing up a balloon). If an incentive spirometer (breathing exercise device) was given to you, use it at least four times a day, or as directed. Apply an ice pack (ice cubes in a plastic bag, wrapped in a towel) over the injured area for 20 minutes every 1-2 hours the first day. Continue with ice packs 3-4 times a day for the next two days, then as needed for the relief of pain and swelling. You may use acetaminophen (Tylenol) or ibuprofen (Motrin, Advil) to control pain, unless another pain medicine was prescribed. [NOTE: If you have chronic liver or kidney disease or ever had a stomach ulcer or GI bleeding, talk with your doctor before using these medicines.] If your pain is not controlled by the treatment given, contact your doctor. Sometimes a stronger pain medicine may be needed. A nerve block (numbing the nerve between the ribs) can be performed in case of severe pain. Follow Up with your doctor during the next week, or as advised. Rarely, a broken rib will cause complications within the first few days that may not be evident during your initial exam (such as, collapsed lung, bleeding around the lung or into the abdomen, or pneumonia). Therefore, watch for the signs below. [NOTE: If x-rays were taken, they will be reviewed by a radiologist. You will be notified of any new findings that may affect your care.] Get Prompt Medical Attention if any of the following occur: Shortness of breath Increasing chest pain with breathing Dizziness, weakness or fainting New or worsening abdominal pain Fever of 100.4 F (38 C) or higher, or as directed by your healthcare provider Frank raymundo [phone] [employer]. [address] [place] [address]182. All rights reserved. This information is not intended as a substitute for professional medical care. Always follow your healthcare professional's instructions. Follow Up Care 10/31/2021 12:29:02 With:PK SLOAN DO Address: [address] [place] [phone] When:2-4 days [facility] 10-31-2021 Emergency department Discharge summary Discharge Instructions Thank you for allowing [facility] to assist you with your healthcare needs. The following is important discharge information regarding your hospital visit. Diagnosis from Today's Visit Rib fracture, Rib fracture Abdominal pain What to Do Next Instructions from Your Care Team No qualifying data available. Post Acute Orders No qualifying data available. You Need to Schedule the Following Appointments Follow Up with PK SLOAN DO When Within 2-4 days Where: [address] [place] [phone] Allergies Chantix (Unknown) Lovenox Medications Please ask your primary doctor or pharmacist before taking any other medication not listed, including over the counter drugs, herbal medications, vitamins and or supplements as they may interact with your home medications. What How Much When Why Instructions Last Dose New acetaminophen-hydrocodone (Houston 325- 5 mg oral tablet) 1 tab(s) by mouth Every 6 hours as needed for for pain Rib fracture Rib fracture Duration: 3 Days Printed Prescription Unchanged albuterol (albuterol MDI (90 mcg/ inh) CFC free inhalation aerosol) 1 puff(s) by inhalation Every 4 hours as needed for as needed for wheezing Acute bacterial bronchitis Unchanged albuterol (albuterol 2.5 mg/ 3 mL (0.083%) inhalation solution) 3 Milliliter by inhalation Four (4) times a day Acute bacterial bronchitis Duration: 30 Days Unchanged ALPRAZolam (ALPRAZolam 0.5 mg oral tablet) 1 tab(s) by mouth Two (2) times a day as needed for as needed for anxiety Anxiety Duration: 30 Days Unchanged atenolol (atenolol 100 mg oral tablet) 1 tab(s) by mouth Once a day Duration: 90 Days Unchanged buPROPion (buPROPion 150 mg/ 12 hours (SR) oral tablet, extended release) 1 tab(s) by mouth Two (2) times a day Anxiety depression Unchanged dapagliflozin (Farxiga 5 mg oral tablet) 1 tab(s) by mouth Once a day Diabetes mellitus Unchanged diclofenac (diclofenac sodium 75 mg oral delayed release tablet) 1 tab(s) by mouth Two (2) times a day Right shoulder pain with food Unchanged DME (Alcohol Swabs) See instructions Diabetes mellitus Use 1 swab twice daily to inject insulin. Unchanged DME (Blood Glucose Test Machine) See instructions Diabetes mellitus Use as directed daily Unchanged DME (Blood Glucose Test Machine) See instructions Diabetes mellitus Dispense 1 glucometer, use as directed to test blood sugar once daily Unchanged DME (Blood Glucose Test Strips) See instructions Diabetes mellitus Dispense glucose test strips, #100, UAD daily to test blood sugar Unchanged DME (DME MISCellaneous) See instructions Urinary incontinence in female Osteoarthritis of right hip Dispense reusable incontinence bed pads, #6 pads, use as directed at bedtime Unchanged DME (Lancets) See instructions Diabetes mellitus Dispense ultrafine lancets, #200, UAD twice daily to check blood sugar Unchanged DME (Pen needles 4 mm) See instructions Diabetes mellitus Use 1 pen needle twice daily to inject insulin Unchanged docusate (docusate sodium 100 mg oral capsule) 2 cap by mouth Two (2) times a day as needed for as needed for constipation Unchanged ferrous sulfate (ferrous sulfate 325 mg (65 mg elemental iron) oral tablet) 1 tab(s) by mouth Once a day Duration: 90 Days Unchanged fluticasone-salmeterol (fluticasone-salmeterol 232 mcg-14 mcg/ inh inhalation powder) 1 puff by inhalation Two (2) times a day Unchanged furosemide (furosemide 20 mg oral tablet) 1 tab(s) by mouth Once a day Unchanged glimepiride (glimepiride 4 mg oral tablet) 1 tab(s) by mouth Once a day Unchanged insulin glargine (Basaglar 100 unit(s)/ mL 3 mL KwikPen) 50 unit(s) Subcutaneous Two (2) times a day Diabetes mellitus Duration: 90 Days Unchanged metFORMIN (MetFORMIN (Eqv-Glucophage XR) 500 mg oral tablet, EXTENDED RELEASE) 2 tab(s) by mouth Two (2) times a day Duration: 90 Days Unchanged Misc Medication (ONETOUCH KELLY ULTRA BL) Unchanged montelukast (montelukast 10 mg oral tablet) 1 tab(s) by mouth Once a day Unchanged omega-3 polyunsaturated fatty acids (Lovaza 1000 mg oral capsule) 2 cap by mouth Two (2) times a day Mixed hyperlipidemia Unchanged omeprazole (omeprazole 40 mg oral delayed release capsule) 1 cap by mouth Once a day Duration: 90 Days Unchanged pravastatin (pravastatin 40 mg oral tablet) See instructions TAKE 1 TABLET AT BEDTIME Unchanged pregabalin (Lyrica 300 mg oral capsule) 1 cap by mouth Two (2) times a day Anxiety Duration: 90 Days Unchanged QUEtiapine (QUEtiapine 100 mg oral tablet) 1 tab(s) by mouth Daily at bedtime Unchanged rivaroxaban (Xarelto 20 mg oral tablet) 1 tab(s) by mouth Once a day (in the evening) Duration: 90 Days with evening meal Unchanged traZODone (traZODone 50 mg oral tablet) 1 tab(s) by mouth Daily at bedtime Unchanged umeclidinium (Incruse Ellipta 62.5 mcg/ inh inhalation powder) Unchanged venlafaxine (venlafaxine 150 mg oral capsule, extended release) 2 cap by mouth Once a day Duration: 90 Days Please take this list to your next doctor s visit. Bring all medications you take, including over the counter medications, herbals and other supplements with you to your doctor s visit. Patients and families are reminded to discard old lists and to update any records with all medication providers or retail pharmacies. Medication Leaflets acetaminophen and hydrocodone (a SEET a MIN oh fen and dmitry WEST done) Hycet, Lorcet, Houston, Verdrocet, Vicodin, Xodol, Zamicet What is the most important information I should know about acetaminophen and hydrocodone? MISUSE OF OPIOID MEDICINE CAN CAUSE ADDICTION, OVERDOSE, OR . Keep the medication in a place where others cannot get to it. Taking opioid medicine during may cause life-threatening withdrawal symptoms in the . Fatal side effects can occur if you use opioid medicine with alcohol, or with other drugs that cause drowsiness or slow your breathing. Stop taking this medicine and call your doctor right away if you have skin redness or a rash that spreads and causes blistering and peeling. What is acetaminophen and hydrocodone? Acetaminophen and hydrocodone is a combination medicine used to relieve moderate to severe pain. Acetaminophen and hydrocodone contains an opioid medicine, and may be habit-forming. Acetaminophen and hydrocodone may also be used for purposes not listed in this medication guide. What should I discuss with my healthcare provider before taking acetaminophen and hydrocodone? You should not use this medicine if you are allergic to acetaminophen or hydrocodone, or if you have: severe asthma or breathing problems; or a blockage in your stomach or intestines. Tell your doctor if you have ever had: breathing problems, sleep apnea (breathing stops during sleep); liver disease; a drug or alcohol addiction; kidney disease; a head injury or seizures; urination problems; or problems with your thyroid, pancreas, or gallbladder. If you use opioid medicine while you are , your baby could become dependent on the drug. This can cause life-threatening withdrawal symptoms in the baby after it is born. Babies born dependent on opioids may need medical treatment for several weeks. Ask a doctor before using opioid medicine if you are . Tell your doctor if you notice severe drowsiness or slow breathing in the nursing baby. How should I take acetaminophen and hydrocodone? Follow all directions on your prescription label. Never take this medicine in larger amounts, or for longer than prescribed. An overdose can damage your liver or cause . Tell your doctor if you feel an increased urge to use more of this medicine. Never share this medicine with another person, especially someone with a history of drug abuse or addiction. MISUSE CAN CAUSE ADDICTION, OVERDOSE, OR . Keep the medicine in a place where others cannot get to it. Selling or giving away this medicine is against the law. Measure liquid medicine carefully. Use the dosing syringe provided, or use a medicine dose-measuring device (not a kitchen spoon). If you need surgery or medical tests, tell the doctor ahead of time that you are using this medicine. You should not stop using this medicine suddenly. Follow your doctor's instructions about tapering your dose. Store at room temperature away from moisture and heat. Keep track of your medicine. You should be aware if anyone is using it improperly or without a prescription. Do not keep leftover opioid medication. Just one dose can cause in someone using this medicine accidentally or improperly. Ask your pharmacist where to locate a drug take-back disposal program. If there is no take-back program, flush the unused medicine down the toilet. What happens if I miss a dose? Since this medicine is used for pain, you are not likely to miss a dose. Skip any missed dose if it is almost time for your next dose. Do not use two doses at one time. What happens if I overdose? Seek emergency medical attention or call the Poison Help line at . An overdose of this medicine can be fatal, especially in a child or other person using the medicine without a prescription. Overdose symptoms may include nausea, vomiting, sweating, severe drowsiness, pinpoint pupils, slow breathing, or no breathing. Your doctor may recommend you get naloxone (a medicine to reverse an opioid overdose) and keep it with you at all times. A person caring for you can give the naloxone if you stop breathing or don't wake up. Your caregiver must still get emergency medical help and may need to perform CPR (cardiopulmonary resuscitation) on you while waiting for help to arrive. Anyone can buy naloxone from a pharmacy or local health department. Make sure any person caring for you knows where you keep naloxone and how to use it. What should I avoid while taking acetaminophen and hydrocodone? Avoid driving or operating machinery until you know how this medicine will affect you. Dizziness or drowsiness can cause falls, accidents, or severe injuries. Do not drink alcohol. Dangerous side effects or could occur. Ask a doctor or pharmacist before using any other medicine that may contain acetaminophen (sometimes abbreviated as APAP). Taking certain medications together can lead to a fatal overdose. What are the possible side effects of acetaminophen and hydrocodone? Get emergency medical help if you have signs of an allergic reaction: hives; difficulty breathing; swelling of your face, lips, tongue, or throat. Opioid medicine can slow or stop your breathing, and may occur. A person caring for you should give naloxone and/or seek emergency medical attention if you have slow breathing with long pauses, blue colored lips, or if you are hard to wake up. In rare cases, acetaminophen may cause a severe skin reaction that can be fatal. This could occur even if you have taken acetaminophen in the past and had no reaction. Stop taking this medicine and call your doctor right away if you have skin redness or a rash that spreads and causes blistering and peeling. Call your doctor at once if you have: noisy breathing, sighing, shallow breathing, breathing that stops; a light-headed feeling, like you might pass out; liver problems--nausea, upper stomach pain, tiredness, loss of appetite, dark urine, nitza-colored stools, jaundice (yellowing of the skin or eyes); low cortisol levels-- nausea, vomiting, loss of appetite, dizziness, worsening tiredness or weakness; o high levels of serotonin in the body--agitation, hallucinations, fever, sweating, shivering, fast heart rate, muscle stiffness, twitching, loss of coordination, nausea, vomiting, diarrhea. Serious breathing problems may be more likely in older adults and in those who are debilitated or have wasting syndrome or chronic breathing disorders. Common side effects include: dizziness, drowsiness, feeling tired; nausea, vomiting, stomach pain; constipation; or headache. This is not a complete list of side effects and others may occur. Call your doctor for medical advice about side effects. You may report side effects to FDA at 3-512-ESC-8394. What other drugs will affect acetaminophen and hydrocodone? You may have breathing problems or withdrawal symptoms if you start or stop taking certain other medicines. Tell your doctor if you also use an antibiotic, antifungal medication, heart or blood pressure medication, seizure medication, or medicine to treat HIV or hepatitis C. Opioid medication can interact with many other drugs and cause dangerous side effects or . Be sure your doctor knows if you also use: cold or allergy medicines, bronchodilator asthma/COPD medication, or a diuretic ('water pill'); medicines for motion sickness, irritable bowel syndrome, or overactive bladder; other opioids--opioid pain medicine or prescription cough medicine; a sedative like Valium--diazepam, alprazolam, lorazepam, Xanax, Klonopin, Versed, and others; drugs that make you sleepy or slow your breathing--a sleeping pill, muscle relaxer, medicine to treat mood disorders or mental illness; drugs that affect serotonin levels in your body--a stimulant, or medicine for depression, Parkinson's disease, migraine headaches, serious infections, or nausea and vomiting. This list is not complete. Other drugs may affect acetaminophen and hydrocodone, including prescription and bzeg-dex-zjlwgdk medicines, vitamins, and herbal products. Not all possible interactions are listed here. Where can I get more information? Your doctor or pharmacist can provide more information about acetaminophen and hydrocodone. Remember, keep this and all other medicines out of the reach of children, never share your medicines with others, and use this medication only for the indication prescribed. Every effort has been made to ensure that the information provided by [employer] ('[employer]') is accurate, up-to-date, and complete, but no guarantee is made to that effect. Drug information contained herein may be time sensitive. [employer] information has been compiled for use by healthcare practitioners and consumers in the [place] and therefore [employer] does not warrant that uses outside of the [place] are appropriate, unless specifically indicated otherwise. [employer]'s drug information does not endorse drugs, diagnose patients or recommend therapy. [facility] drug information is an informational resource designed to assist licensed healthcare practitioners in caring for their patients and/or to serve consumers viewing this service as a supplement to, and not a substitute for, the expertise, skill, knowledge and judgment of healthcare practitioners. The absence of a warning for a given drug or drug combination in no way should be construed to indicate that the drug or drug combination is safe, effective or appropriate for any given patient. [employer] does not assume any responsibility for any aspect of healthcare administered with the aid of information [employer] provides. The information contained herein is not intended to cover all possible uses, directions, precautions, warnings, drug interactions, allergic reactions, or adverse effects. If you have questions about the drugs you are taking, check with your doctor, nurse or pharmacist. Copyright 8490-6483 [employer]. Version: 16.03. Revision Date: 05/06/2020. Education Materials Rib Fracture You have a fracture (break) of one or more ribs. Rib fractures do not require a cast like other bones. They will heal by themselves in about 4-6 weeks. The first 3-4 weeks will be the most painful because deep breathing, coughing or changing position from sitting to lying down, may cause the broken ends to move slightly. Home Care: Rest. You should not be doing any heavy lifting or strenuous exertion until the pain goes away. Because it hurts to breathe when you have a broken rib, there is risk of getting pneumonia from poor airflow through your lungs. To prevent this: Take four very deep breaths at least four times a day (exhale through pursed lips as if you are blowing up a balloon). If an incentive spirometer (breathing exercise device) was given to you, use it at least four times a day, or as directed. Apply an ice pack (ice cubes in a plastic bag, wrapped in a towel) over the injured area for 20 minutes every 1-2 hours the first day. Continue with ice packs 3-4 times a day for the next two days, then as needed for the relief of pain and swelling. You may use acetaminophen (Tylenol) or ibuprofen (Motrin, Advil) to control pain, unless another pain medicine was prescribed. [NOTE: If you have chronic liver or kidney disease or ever had a stomach ulcer or GI bleeding, talk with your doctor before using these medicines.] If your pain is not controlled by the treatment given, contact your doctor. Sometimes a stronger pain medicine may be needed. A nerve block (numbing the nerve between the ribs) can be performed in case of severe pain. Follow Up with your doctor during the next week, or as advised. Rarely, a broken rib will cause complications within the first few days that may not be evident during your initial exam (such as, collapsed lung, bleeding around the lung or into the abdomen, or pneumonia). Therefore, watch for the signs below. [NOTE: If x-rays were taken, they will be reviewed by a radiologist. You will be notified of any new findings that may affect your care.] Get Prompt Medical Attention if any of the following occur: Shortness of breath Increasing chest pain with breathing Dizziness, weakness or fainting New or worsening abdominal pain Fever of 100.4 F (38 C) or higher, or as directed by your healthcare provider Frank cough [id number] [employer]. [address] [place] [address]. All rights reserved. This information is not intended as a substitute for professional medical care. Always follow your healthcare professional's instructions. Additional Information VACCINATE! IT SAVES LIVES! Members of the community who have not yet received the COVID-19 vaccine and would like to receive it can visit one of [facility] vaccine clinics. There are many vaccine clinic locations within the [facility]. For locations and available times, please visit [email or web address]. It is important to note that some COVID mobile vaccine clinics are held outdoors and may be canceled in rainy or stormy conditions. To learn more about pediatric vaccinations (ages 5-11), we invite you to visit the [facility] webpage. [email or web address] [email or web address] [email or web address] To learn more about the COVID-19 vaccine, we invite you to visit the [facility] website for a list of frequently asked questions. [email or web address] [facility] [employer] Patient Portal Access Instructions: Stay connected with your healthcare team and access your personal medical information anytime with the [facility] Patient Portal. If you would like a full copy of your medical records please contact the [facility] Medical Records Department Tuesday through Tuesday between 8a.m. and 4:30p.m. Please follow the directions below to access the portal: 1.Access the email account you provided upon registration to the [facility].2.Look for an invitation email from [facility].3.Open the email and access the invitation link: Accept Invitation to [facility].Fill in the required ruth to create your account. Sign into www.[employer] with your username and password that you created in the above steps to stay up to date. You can then view a summary of results, a summary of your visits, and the ability to download your summaries to your computer or send the information securely to a physician. Remember that your healthcare information is confidential, so carefully consider who you will allow to register on the [facility] Patient Portal for access to your information. You can also access the [facility] Patient Portal on the [employer] cha[employer]z. Simply click on Health Records under Health Data and then click on the [employer] logo. HOW TO SAFELY DISPOSE OF PRESCRIPTION MEDICATIONS Please use one of the following methods to safely dispose of your unused medications. 1.Use a drug disposal kit: the drug disposal pouch allows you to safely discard your old and unused drugs. Ask your nurse to give you one when you are discharged.2.Visit a local take-back location: Many local pharmacies and police departments have programs that collect old and unwanted prescription drugs. Call your local pharmacy or go to http://RFEyeD.[employer]/5H5Bp7h to find one close to you.3.Make use of household items: Use cat litter or old coffee grounds to dispose medications if other options are not available. Mix your drugs with these household products, seal them in an airtight container and throw it into the garbage. Call [facility]: [phone] to be sure your drugs can be disposed of in this way. Some medicines may require a different approach.4.Never flush your medications down the toilet. IF YOU HAVE BEEN PRESCRIBED AN OPIOIDS FOR PAIN If you have been prescribed an opioid (such as hydrocodone, oxycodone or morphine), it is critical to understand the possible side effects and risks of opioid pain medications. Even when taken as directed, opioids can have several side effects including: Tolerance, meaning you might need to take more of a medication for the same pain relief. Nausea, vomiting and/or constipation. Sleepiness, dizziness, dry mouth, confusion, depression or itching. Physical dependence, meaning you have withdrawal symptoms when a medication is stopped ? this can develop within a few days. KNOW YOUR RESPONSIBILITIES It is important to know exactly how much and how often to take the opioid pain medications you are prescribed. Never take opioids in higher amounts or more often than prescribed. Do not combine opioids with alcohol or other drugs that cause drowsiness, such as benzodiazepines, also known as benzos, including diazepam and alprazolam, muscle relaxants or sleep aids. Never sell or share prescription opioids. This is illegal. Store opioids in a secure place and out of reach of others (including children, family, friends and visitors). The last page(s) of this document has been signed and retained as a CHART COPY Signatures Patient Education Materials FRACTURE, Rib Medication Leaflets acetaminophen and hydrocodone My discharge plan and instructions have been reviewed and explained to me and IGHADA LUCY understand my current condition and have read and understand these discharge instructions. I have received a written copy of the plan/instructions. If I have questions, I am aware that I should contact my doctor. Patient/Client Success Director Signature: Date/Time: Relationship to Patient: Witness Name/Signature: Date/Time: [facility] Sushil Salkum 10-31-2021 Note ORIGINAL EXAMINATION: CT OF THE ABDOMEN AND PELVIS WITH CONTRAST 10/31/2021 2:33 pm TECHNIQUE: CT of the abdomen and pelvis was performed with the administration of intravenous contrast. Multiplanar reformatted images are provided for review. Automated exposure control, iterative reconstruction, and/or weight based adjustment of the mA/kV was utilized to reduce the radiation dose to as low as reasonably achievable. COMPARISON: None. HISTORY: ORDERING SYSTEM PROVIDED HISTORY: Reason for Exam: pain FINDINGS: Within the visualized lung bases, there is mild bibasilar atelectasis. There is a 4 mm left lower lobe pulmonary nodule seen on series 2, image 10. No pleural effusion. Heart is normal in size without pericardial effusion. There is diffuse decreased attenuation throughout the liver with focal fatty sparing adjacent to the gallbladder consistent with hepatic steatosis. No focal hepatic masses. Gallbladder is unremarkable. No intra or extrahepatic biliary dilatation. There is a 13 mm hypodensity within the spleen most consistent with a cyst. Pancreas and adrenal glands are unremarkable. Kidneys are symmetric without evidence of hydronephrosis or renal calculi. Ureters are normal in course and caliber. Bladder is underdistended limiting evaluation but no obvious wall thickening or focal mass. Uterus is unremarkable. No adnexal masses. Esophagus, stomach and duodenum are unremarkable. No evidence of small or large bowel obstruction. Colon is normal in course and caliber. The appendix is unremarkable. No free pelvic fluid or evidence of pneumoperitoneum. Aorta is normal in caliber with mild atherosclerotic calcifications. No pathologically enlarged abdominal or pelvic lymph nodes. Tiny fat containing umbilical hernia. There is an acute fracture of the lateral left 8th rib and healing fracture of the left anterolateral 7th rib. Severe right hip degenerative changes with deformity of the right femoral head. Mild multilevel degenerative changes throughout the visualized spine greatest within the lower lumbar spine. Severe degenerative changes at the pubic symphysis. IMPRESSION: Acute left 8th rib fracture and healing left 7th rib fracture. Probable hepatic steatosis. 4 mm left lower lobe pulmonary nodule which is not require additional follow-up. Severe right hip degenerative change with deformity of the right femoral head. Other incidental findings as described above. I have personally reviewed the images of this examination and agree with the resident's findings and interpretation. Interpreted by: Sulaiman Jerome MD Preliminary Report By: Erasmo Reza Electronically signed By Sulaiman Jerome MD Dictated Date: 10/31/2021 2:36:16 PM Prelim Date: 10/31/2021 2:47:15 PM Sign Date: 10/31/2021 2:49:49 PM Ordering Provider: [facility] 10-31-2021 Note ORIGINAL EXAMINATION: CT OF THE ABDOMEN AND PELVIS WITH CONTRAST 10/31/2021 2:33 pm TECHNIQUE: CT of the abdomen and pelvis was performed with the administration of intravenous contrast. Multiplanar reformatted images are provided for review. Automated exposure control, iterative reconstruction, and/or weight based adjustment of the mA/kV was utilized to reduce the radiation dose to as low as reasonably achievable. COMPARISON: None. HISTORY: ORDERING SYSTEM PROVIDED HISTORY: Reason for Exam: pain FINDINGS: Within the visualized lung bases, there is mild bibasilar atelectasis. There is a 4 mm left lower lobe pulmonary nodule seen on series 2, image 10. No pleural effusion. Heart is normal in size without pericardial effusion. There is diffuse decreased attenuation throughout the liver with focal fatty sparing adjacent to the gallbladder consistent with hepatic steatosis. No focal hepatic masses. Gallbladder is unremarkable. No intra or extrahepatic biliary dilatation. There is a 13 mm hypodensity within the spleen most consistent with a cyst. Pancreas and adrenal glands are unremarkable. Kidneys are symmetric without evidence of hydronephrosis or renal calculi. Ureters are normal in course and caliber. Bladder is underdistended limiting evaluation but no obvious wall thickening or focal mass. Uterus is unremarkable. No adnexal masses. Esophagus, stomach and duodenum are unremarkable. No evidence of small or large bowel obstruction. Colon is normal in course and caliber. The appendix is unremarkable. No free pelvic fluid or evidence of pneumoperitoneum. Aorta is normal in caliber with mild atherosclerotic calcifications. No pathologically enlarged abdominal or pelvic lymph nodes. Tiny fat containing umbilical hernia. There is an acute fracture of the lateral left 8th rib and healing fracture of the left anterolateral 7th rib. Severe right hip degenerative changes with deformity of the right femoral head. Mild multilevel degenerative changes throughout the visualized spine greatest within the lower lumbar spine. Severe degenerative changes at the pubic symphysis. IMPRESSION: Acute left 8th rib fracture and healing left 7th rib fracture. Probable hepatic steatosis. 4 mm left lower lobe pulmonary nodule which is not require additional follow-up. Severe right hip degenerative change with deformity of the right femoral head. Other incidental findings as described above. I have personally reviewed the images of this examination and agree with the resident's findings and interpretation. Interpreted by: Sulaiman Jerome MD Preliminary Report By: Erasmo Reza Electronically signed By Sulaiman Jerome MD Dictated Date: 10/31/2021 2:36:16 PM Prelim Date: 10/31/2021 2:47:15 PM Sign Date: 10/31/2021 2:49:49 PM Ordering Provider: JA[facility] 09-02-2021 Hospital Discharge instructions Patient Education 09/02/2021 06:18:32 Tick Bites Tick Bites Ticks are small arachnids that feed on the blood of rodents, rabbits, birds, deer, dogs, and people. A tick bite may cause a reaction like a spider bite. You may have redness, itching, and slight swelling at the site. Sometimes you may have no reaction where the tick bit you. Ticks may gorge themselves for days before you find and remove them. The bites themselves aren't cause for concern. But ticks can carry and pass on illnesses such as Lyme disease and Primrose spotted fever. Both diseases begin with a rash and symptoms similar to the flu. In advanced stages, these diseases can be quite serious. A bull's eye rash is a common symptom of Lyme disease. When to go to the emergency room (ER) Not all ticks carry disease. And a tick must stay attached for at least 24 hours to infect you. If you find a tick, don't panic. Try to carefully remove it with tweezers. Grasp the tick near its head and pull without twisting. If you can't easily dislodge the tick or if you leave the head in your skin, get medical care right away. What to expect in the ER The tick or any parts of the tick will be removed and the bite will be cleaned. To prevent disease, you may be given antibiotics. Both Lyme disease and Primrose spotted fever respond quickly to these medicines. You may be asked to see your healthcare provider for a blood test to check for Lyme disease. Follow-up care Some [facility] and [facility] have services that test ticks for Lyme disease and other diseases. Check with your local officials to see if this service is available in your area. If you remove a tick yourself, watch for signs of a tick-borne illness. Symptoms may show up within a few days or weeks after a bite. Call your healthcare provider if you notice any of the following: Rash. The rash may spread outward in a ring from a hard white lump. Or it may move up your arms and legs to your chest. Chills and fever Body aches and joint pain Severe headache [phone] [employer] [place] [address]. All rights reserved. This information is not intended as a substitute for professional medical care. Always follow your healthcare professional's instructions. Follow Up Care 09/02/2021 05:53:23 With:Go to emergency room if symptoms worsen Address:Unknown When:2-4 days With:PK SLOAN DO Address: [address] [place] [address] Phys[place], [place] [phone] When:2-4 days [facility] [facility] 08[facility]21 Hospital Discharge instructions Patient Education 08/22/2021 14:27:50 Conjunctivitis, Non-Specific Conjunctivitis, Nonspecific The membrane that covers the white part of your eye (the conjunctiva) is inflamed. Inflammation happens when your body responds to an injury, allergic reaction, infection, or illness. Symptoms of inflammation in the eye may include redness, irritation, itching, swelling, or burning. These symptoms should go away within the next 24 hours. Conjunctivitis may be related to a particle that was in your eye. If so, it may wash out with your tears or irrigation treatment. Being exposed to liquid chemicals or fumes may also cause this reaction. Home care Apply a cold pack over the eye for 20 minutes at a time. This will reduce pain. To make a cold pack, put ice cubes in a plastic bag that seals at the top. Wrap the bag in a clean, thin towel or cloth. Artificial tears may be prescribed to reduce irritation or redness. These should be used 3 to 4 times a day. You may use acetaminophen or ibuprofen to control pain, unless another medicine was prescribed. (Note: If you have chronic liver or kidney disease, or if you have ever had a stomach ulcer or gastrointestinal bleeding, talk with your healthcare provider before using these medicines.) Follow-up care Follow up with your healthcare provider, or as advised. When to seek medical advice Call your healthcare provider right away if any of these occur: Increased eyelid swelling Increased eye pain Increased redness or drainage from the eye Increased blurry vision or increased sensitivity to light Failure of normal vision to return within 24 to 48 hours [id number] [employer]. [address] [place] [address]. All rights reserved. This information is not intended as a substitute for professional medical care. Always follow your healthcare professional's instructions. Follow Up Care 08/22/2021 14:18:29 With:your eye doctor Address: When:2-4 days [facility] 07-04-2021 Hospital Discharge instructions Patient Education 07/04/2021 21:59:52 Cellulitis Skin Infection Cellulitis Cellulitis is an infection of the deep layers of skin. A break in the skin, such as a cut or scratch, can let bacteria under the skin. If the bacteria get to deep layers of the skin, it can be serious. If not treated, cellulitis can get into the bloodstream and lymph nodes. The infection can then spread throughout the body. This causes serious illness. Cellulitis causes the affected skin to become red, swollen, warm, and sore. The reddened areas have a visible border. An open sore may leak fluid (pus). You may have a fever, chills, and pain. Cellulitis is treated with antibiotics taken for 7 to 10 days. An open sore may be cleaned and covered with cool wet gauze. Symptoms should get better 1 to 2 days after treatment is started. Make sure to take all the antibiotics for the full number of days until they are gone. Keep taking the medicine even if your symptoms go away. Home care Follow these tips: Limit the use of the part of your body with cellulitis. If the infection is on your leg, keep your leg raised while sitting. This will help to reduce swelling. Take all of the antibiotic medicine exactly as directed until it is gone. Do not miss any doses, especially during the first 7 days. Don t stop taking the medicine when your symptoms get better. Keep the affected area clean and dry. Wash your hands with soap and warm water before and after touching your skin. Anyone else who touches your skin should also wash his or her hands. Don't share towels. Follow-up care Follow up with your healthcare provider, or as advised. If your infection does not go away on the first antibiotic, your healthcare provider will prescribe a different one. When to seek medical advice Call your healthcare provider right away if any of these occur: Red areas that spread Swelling or pain that gets worse Fluid leaking from the skin (pus) Fever higher of 100.4 F (38.0 C) or higher after 2 days on antibiotics [id number] [employer]. [address] [place] [address]. All rights reserved. This information is not intended as a substitute for professional medical care. Always follow your healthcare professional's instructions. Follow Up Care 07/04/2021 20:42:53 With:PK SLOAN DO Address:Unknown When:2-4 days [facility] Evaluation + Plan note Future Appointments Appointment Date:07/01/2021 08:30:00 AM Scheduled Provider:PK SLOAN DO Location:[facility] Appointment Type:PC OV Controlled Medication Future Scheduled TestsThyroid Stimulating Hormone 06/18/20Lipid Profile 06/18/20Microalbumin Level Urine 06/18/20Complete Metabolic Panel 06/18/20XR Hip Minimum 2 Views Right 04/01/21 [facility] Evaluation + Plan note Future Appointments Appointment Date:10/07/2021 09:30:00 AM Scheduled Provider:PK SLOAN DO Location:[facility] Appointment Type:PC OV Controlled Medication Future Scheduled TestsXR Hip Minimum 2 Views Right 04/01/21 [facility] Evaluation + Plan note Future Appointments Appointment Date:08/25/2021 10:00:00 AM Scheduled Provider:CHRISTIE CANALES Location:[facility] Appointment Type:PC Wellness Annual Appointment Date:10/07/2021 09:30:00 AM Scheduled Provider:PK SLOAN DO Location:[facility] Appointment Type:PC OV Controlled Medication Future Scheduled TestsXR Hip Minimum 2 Views Right 04/01/21 [facility] Evaluation + Plan note Future Appointments Appointment Date:01/13/2022 09:30:00 AM Scheduled Provider:PK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
== END | disposition home or self-care (01) ==
LOC: CVS 07:25
PROVIDERS: PCP Preventive Medicine Occupational Medicine; Referring Provider Surgery Vascular Surgery; Visit Provider Surgery Vascular Surgery
DX: I70.212 Atherosclerosis of native arteries of extremities with intermittent claudication, left leg (principal); E11.51 Type 2 diabetes mellitus with diabetic peripheral angiopathy without gangrene; I10 Essential (primary) hypertension
CPT/HCPCS: 93922

== ENCOUNTER 2023-06-10 16:57 | Emergency (ER) | payer MEDICAID, SELFPAY ==
[2023-06-10 17:00] VITALS: BP 138/82; PULSE 68; RESP 15; TEMP 36.2; O2SAT 92
[2023-06-10 19:00] VITALS: BP 189/167; PULSE 98; RESP 19; O2SAT 91
[2023-06-10 19:11] VITALS: BMI 49.1
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
[2023-06-10] MEDS: HYDROcodone Bitartrate/Apap 5/325 Tablet PO (19:28)
--- NOTE | 2023-06-10 19:40 | RAD_ITS ---
STUDY: XR Shoulder Min 2 Views REASON FOR EXAM: Female, 57 years old. injury TECHNIQUE: XR Shoulder Min 2 Views LEFT COMPARISON: None. FINDINGS: There is mild degenerative arthrosis of the glenohumeral articulation. There is degenerative arthrosis of the acromioclavicular joint without inferior osseous spur formation. Normal acromion. Normal humeral head and visualized proximal humerus. The soft tissue structures are unremarkable. Normal visualized pulmonary apex. RAD/Shoulder min 2 Views IMPRESSION: There are no acute findings of the shoulder. Electronically Signed: Michael Rhoades MD at 20:26 EST ,
--- NOTE | 2023-06-10 19:40 | RAD_ITS ---
EXAM: XR RIGHT TIBIA AND FIBULA, 2 VIEWS CLINICAL INDICATION: injury TECHNIQUE: Frontal and lateral views of the right tibia and fibula. COMPARISON: No relevant prior studies available. FINDINGS: BONES/JOINTS: Degenerative findings of the knee. Degenerative changes of the ankle mortise. No acute fracture. No subluxation. Normal alignment. No sclerotic or destructive changes observed. SOFT TISSUES: Soft tissue swelling around the lateral malleolus. No radiopaque foreign body. RAD/Tibia & Fibula 2 Views IMPRESSION: Soft tissue swelling around the lateral malleolus. Electronically Signed: Michael Rhoades MD at 20:27 EST ,
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
[2023-06-10 20:29] VITALS: BP 122/44; PULSE 89; RESP 20; O2SAT 90
[2023-06-10 20:53] VITALS: BP 126/50; PULSE 89; RESP 20; TEMP 36.9; O2SAT 90
== END 2023-06-10 20:54 | disposition home or self-care (01) ==
PROVIDERS: Emergency Provider Emergency Medicine; PCP Preventive Medicine Occupational Medicine; Visit Provider Emergency Medicine
DX: S46.912A Strain of unspecified muscle, fascia and tendon at shoulder and upper arm level, left arm, initial encounter (principal); J44.9 Chronic obstructive pulmonary disease, unspecified; E11.40 Type 2 diabetes mellitus with diabetic neuropathy, unspecified; S93.401A Sprain of unspecified ligament of right ankle, initial encounter; G47.33 Obstructive sleep apnea (adult) (pediatric); F17.210 Nicotine dependence, cigarettes, uncomplicated; W10.2XXA Fall (on)(from) incline, initial encounter; Z86.718 Personal history of other venous thrombosis and embolism; Z86.711 Personal history of pulmonary embolism; Z86.73 Personal history of transient ischemic attack (TIA), and cerebral infarction without residual deficits
CPT/HCPCS: 73030; 73590; 99283

== ENCOUNTER 2023-07-07 13:15 | Outpatient (CLI) | payer MEDICAID, SELFPAY ==
[2023-07-08 17:17] LABS: Bedside Glucose 62 mg/dL (74-106)
== END 2023-07-07 23:59 | disposition home or self-care (01) ==
LOC: CVS 13:16
PROVIDERS: PCP Preventive Medicine Occupational Medicine; Referring Provider Internal Medicine Cardiovascular Disease; Visit Provider Internal Medicine Cardiovascular Disease
DX: I25.9 Chronic ischemic heart disease, unspecified (principal); R07.9 Chest pain, unspecified
CPT/HCPCS: 82962; 93017; 93350; J7040; A4216

== ENCOUNTER → 2023-07-21 | Outpatient (CLI) | payer MEDICAID, SELFPAY ==
[2023-07-21 08:35] VITALS: PULSE 100; PULSE 103; PULSE 72; PULSE 79; PULSE 82; PULSE 89; PULSE 90; O2SAT 89; O2SAT 90; O2SAT 92; O2SAT 96
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
== END | disposition home or self-care (01) ==
LOC: PSN 07:36
PROVIDERS: PCP Preventive Medicine Occupational Medicine; Visit Provider Internal Medicine Critical Care Medicine
DX: J44.9 Chronic obstructive pulmonary disease, unspecified (principal)
CPT/HCPCS: 94618

== ENCOUNTER → 2024-03-12 | Outpatient (CLI) | payer MEDICAID, SELFPAY ==
--- NOTE | 2024-03-12 12:47 | CT_ITS ---
STUDY: LOW DOSE CT LUNG CANCER SCREENING REASON FOR EXAM: Female, 58 years old. Smoker RADIATION DOSAGE (If Supplied By Facility): CTDIvol = ( 4.02 ) mGy, DLP = ( 115.31 ) mGycm TECHNIQUE: No contrast was administered. Low dose technique was utilized (average mAS-38 and kVp 120). 1.25 mm axial source images with a slice interval of 1.25-mm were reconstructed in lung windows. 2.5 mm axial source images with a slice interval of 2.5-mm were reconstructed in lung windows. 5.0 mm axial source images with a slice interval of 5.0-mm were reconstructed in soft tissue windows. COMPARISON: Comparison is made with prior study dated January 12, 2023. NODULES: Since prior study, there is a 1.2 cm x 1.5 cm pleural-based soft tissue density in the posterior aspect of the left upper lobe with evidence of possible linear scarring. Since prior study, there is evidence of bilateral groundglass opacities in both lungs which have progressed. Emphysema: Mild emphysematous changes. Endobronchial lesion: None Aorta: Mild atherosclerotic transformation of the aortic arch. CORONARY ARTERIES: Coronary artery calcification is not seen. Heart: Cardiomegaly Pulmonary artery: Unremarkable Mediastinal nodes: Unremarkable Other chest and abdominal findings: CT/Low Dose CT Lung Screening IMPRESSION: Lung-RADS category 4A - Screening at 3 months with LDCT or evaluation with PET/CT may be used. IMPORTANT NOTES FOR USE: ACR Lung-RADS Version 1.1 Assessment Categories Release Date: 2018 Category: Coded 0-4 bases on nodule(s) with highest degree of suspicion. Negative screen is defined as categories 1 and 2; a positive screen is defined as categories 3 and 4. Category 3 and 4A nodules that are unchanged on interval CT should be coded as category 2, and individuals returned to screening in 12 months. Category 4X: Category 3 or 4 nodules with additional imaging findings that increase the suspicion of lung cancer, such as spiculation, GGN that doubles in size in 1 year, enlarged lymph notes, etc. Category Modifiers: S (significant finding unrelated to lung cancer) Electronically Signed: Fredrick Leal MD at 10:58 EST ,
== END | disposition home or self-care (01) ==
LOC: CT 12:43
PROVIDERS: PCP Preventive Medicine Occupational Medicine; Referring Provider Nurse Practitioner Acute Care; Visit Provider Nurse Practitioner Acute Care
DX: Z12.2 Encounter for screening for malignant neoplasm of respiratory organs (principal); F17.210 Nicotine dependence, cigarettes, uncomplicated
CPT/HCPCS: 71271

== ENCOUNTER 2024-05-07 13:06 | Emergency (ER) | payer MEDICAID, SELFPAY ==
[2024-05-07 13:07] VITALS: BP 133/74; PULSE 61; RESP 15; TEMP 36.3; O2SAT 95
[2024-05-07 13:09] VITALS: BP 133/74; PULSE 61; RESP 15; TEMP 36.3; O2SAT 95; BMI 47.0
--- NOTE | 2024-05-07 15:13 | EDS_ITS ---
HPI History of Present Illness HPI Narrative: 58-year-old female history of diabetes, diabetic neuropathy, anemia, DVT, COPD and rheumatoid arthritis. In December patient accidentally burned her feet bad needing to be sent to [facility] and having skin grafts. States since Tuesday the skin graft areas have turned red and mildly uncomfortable. She denies any fever or chills. Denies any streaks. She is concerned they may be infected. Chief Complaint: Wound Informant: patient Occured/Mechanism Mechanism/Context: No injury and No blunt trauma Onset/Context/Timing Onset: Days Context: Gradual Onset Timing: Continuous Quality of Pain: Dull and Aching Current Severity: Mild Maximum Severity: Mild Associated Symptoms Associated Symptoms: Negative for Weakness or Loss of Funtion Narrative Narrative: 58-year-old diabetic female with diabetic neuropathy has burned her feet in December needing skin grafts. Now she is concerned he may have become infected since Tuesday. Prior similar symptoms: No Recent Illness/Hospitalization: No PFSH PFSH Medical History Wears glasses Post-menopausal Depression Anxiety Open wound History of steroid therapy Insulin dependent diabetes mellitus Arthritis Diabetes Anemia DVT (deep venous thrombosis) Excessive bleeding Pulmonary embolism Back pain TIA (transient ischemic attack) Gastric reflux Smoker CPAP (continuous positive airway pressure) dependence Sleep apnea On home oxygen therapy Emphysema, unspecified Asthma Chronic cough Leg cramps History of edema Normal stress echocardiogram History of echocardiogram History of CHF (congestive heart failure) Cardiology follow-up encounter Personal history of thromboembolic disease GERD (gastroesophageal reflux disease) Type 2 diabetes mellitus Essential hypertension Livedo reticularis Tubal Fibromyalgia Morbid (severe) obesity due to excess calories Nicotine dependence, uncomplicated Patient's noncompliance with other medical treatment and regimen Obstructive sleep apnea Chronic sinusitis Otitis media Bronchitis Osteoarthritis of right hip Costal chondritis Itching Chronic hypoxemic respiratory failure Shortness of breath Healthcare-associated pneumonia COPD exacerbation COPD, frequent exacerbations Chronic back pain Rheumatoid arthritis Tobacco dependence syndrome History of pulmonary embolus (PE) History of DVT of lower extremity Anxiety disorder Home Medications ?Medication ?Instructions ?Recorded ?Last Taken ?Type atenolol 100 mg tablet 100 mg PO DAILY blood pressu re 12/15/13 06/04/22 05:00 History omeprazole 40 mg capsule,delayed 40 mg PO DAILY GERD 0 12/15/13 06/03/22 History release pravastatin 40 mg tablet 40 mg PO QHS cholesterol 06/03/22 History glimepiride 4 mg tablet 4 mg PO DAILY diabetes 04/2306/03/22 History docusate sodium 100 mg capsule 200 mg PO BID Constipat ion 03/10/17 06/03/22 History pregabalin 300 mg capsule (Lyrica) 300 mg PO BID nerve pain 03/10/17 06/03/22 History rivaroxaban 20 mg tablet 20 mg PO DAILY blood thinner 03/10/17 06/02/22 17:00 History quetiapine 100 mg tablet 100 mg PO QHS sleep 12/12/17 06/03/22 History trazodone 50 mg tablet 50 mg PO QHS sleep 12/13/17 06/03/22 History multivitamin (Daily Multi-Vitamin 1 tab PO DAILY vitam in 12/26/20 06/03/22 History tablet) bupropion HCl 150 mg tablet,12 hr 150 mg PO BID mental health 11/27/21 06/03/22 History sustained-release dapagliflozin propanediol 5 mg 5 mg PO DAILY diabetes 11/27/21 06/03/22 History tablet (Farxiga) diclofenac sodium 75 mg 75 mg PO BID 11/27/21 History tablet,delayed release insulin glargine 100 unit/mL (3 60 unit subcut BID alfredo betes 11/27/21 06/03/22 06:00 History mL) subcutaneous pen (Lantus Solostar U-100 Insulin) omega-3 acid ethyl esters 1 gram 2 cap PO BID suppleme nt 11/27/21 06/03/22 History capsule venlafaxine 150 mg 300 mg PO QHS mental health 11/27/21 Unknown History capsule,extended release 24 hr metformin 500 mg tablet,extended 1,000 mg PO BID diabe pro 05/31/22 06/02/22 History release 24 hr ferrous sulfate 325 mg (65 mg 325 mg PO DAILY suppleme nt #30 tabs 06/08/22 06/03/22 Rx iron) tablet furosemide 40 mg tablet 40 mg PO DAILY diabetic #30 tabs 04/22/23 Unknown Rx acetaminophen 650 mg 1,300 mg PO DAILY PAIN 05/26 Unknown History tablet,extended release alprazolam 3 mg tablet,extended mg PO HS 05/26/23 Unkn own History release 24 hr insulin lispro 100 unit/mL See Protocol subcut ACHS di abetes 05/26/23 Unknown History subcutaneous pen (Humalog KwikPen (U-100) Insulin) triamcinolone acetonide 0.5 % applic topical 05/26/23 Unknown History topical cream hydrocodone-acetaminophen 5-325mg 1 tab PO Q6H PRN PRN Pain 3 days 06/11/23 Unknown Rx 5mg-325mg #12 TABLETS albuterol sulfate 2.5 mg/3 mL 2.5 mg (3 mL) inhalation Q6H PRN 07/11/23 Unknown Rx (0.083 %) solution for nebulization SHORTNESS OF BREAT H #180 vials amoxicillin 875 mg-potassium 1 tab PO BID #20 tabs Unknown Rx clavulanate 125 mg tablet fluticasone 232 mcg-salmeterol 14 1 inh inhalation BID #1 ea 11/25/23 Unknown Rx mcg/actuation breath activated powdr (AirDuo RespiClick) fluticasone fur. 200 mcg-umeclid 1 inh inhalation CHUCKY Y #3 ea 11/25/23 Unknown Rx 62.5 mcg-vilant 25 mcg inhalat.powder (Trelegy Ellipta) ipratropium 0.5 mg-albuterol 3 mg 3 ml inhalation Q4H PRN PRN SOB 11/25/23 Unknown Rx (2.5 mg base)/3 mL nebulization &/OR WHEEZING #180 mL soln prednisone 10 mg tablet 10 mg PO QDAY #30 tabs 11/24 Unknown Rx loratadine 10 mg tablet 10 mg PO DAILY allergies #90 tabs 12/02/23 Unknown Rx Nebulizer machine #1 ea 12/07/23 Unknown Rx albuterol sulfate 90 mcg/actuation 2 puff inhalation Q 4H PRN PRN 12/29/23 Unknown Rx aerosol inhaler (Ventolin HFA) Wheezing ##1 montelukast 10 mg tablet 10 mg PO QPM allergies #30 t abs 01/27/24 Unknown Rx guaifenesin 1,200 mg tablet, 1,200 mg PO Q12H cough #6 0 tabs 02/02/24 Unknown Rx extended release 12 hr cephalexin 500 mg capsule 500 mg PO Q6 10 days #40 CAP SULES 05/07/24 Unknown Rx Allergy/AdvReac Type Severity Reaction Status Date / Time enoxaparin sodium (From Allergy Mild Itching Verified 05/07/24 13:07 Lovenox) heparin Allergy Itching Verified 05/07/24 13:07 varenicline (From Chantix) AdvReac Intermediate MENTAL Verified 05/07/24 13:07 ISSUES arthromycin Allergy Mild Itching Uncoded 11/25/23 10:03 Family History Other No pertinent family history Surgical History Hx of surgical procedure History of tubal ligation No pertinent past surgical history Social History Smoking Status: Heavy Smoker (>10/day) alcohol intake: never substance use type: does not use caffeine: Yes Type: coffee Number of servings: 5 ROS ROS ED ROS Narrative Redness to her feet. Denies nausea, vomiting or diarrhea. No fever. Constitutional Constitutional ED: Denies fever(s) Eyes Eyes: Denies blurry vision ENT ENT ED: Denies ear pain Cardiovascular Cardiovascular: Denies chest pain Respiratory/Chest Respiratory/Chest: Denies cough or dyspnea Gastrointestinal Gastrointestinal: Denies abdominal pain Genitourinary Genitourinary ED: Denies dysuria or hematuria Musculoskeletal Musculoskeletal: Denies arthralgias or back pain Integumentary Reports rash and other Details: Redness bilateral feet over the skin graft. ; Denies abscess or Abrasions Neurologic Neurologic: Denies headache(s) Psychiatric Psychiatric: Denies anxiety Endocrine Endocrinology: Denies polydipsia, polyphagia or polyuria Hematologic/Lymphatic Hematologic/Lymphatic: Denies easy bleeding or easy bruising Allergic/Immunologic Allergic/Immunologic ED: Denies mouth swelling, tongue swelling or urticaria EXAM Physical Exam Narrative Exam Narrative: Well-appearing 58-year-old female. Vital signs are stable afebrile. She does not look septic Dr. Mclean distress. H EENT exam pupils round react light. Moist pink membranes. Neck nontender no lymphadenopathy. Lungs clear to auscultation bilaterally. Heart regular rhythm no murmur. Chest wall nontender. Abdomen soft nontender. Moving all 4 extremities. She has diabetic neuropathy to both feet she has very little sensation. There are skin grafts on both feet distal third appear to be red and may be cellulitic. She is able to dorsi plantarflex her feet. DP pulses are palpable. There is no lymphangitic streaking. There is no inguinal lymphadenopathy bilaterally. Patient is awake and alert. Answer questions following commands. Const Vital Signs: 05/07/24 13:07 05/07/24 13:09 05/07/24 15:31 Temperature 97.4 F L 97.4 F L 98.5 F Temperature Source Temporal Temporal Axillary Pulse Rate 61 61 60 Respiratory Rate 15 15 16 Blood Pressure 133/74 H 133/74 H 121/50 H Blood Pressure Mean 93 93 73 Pulse Ox 95 95 91 Oxygen Delivery Method Room Air Room Air Positive well nourished and well developed; Negative for cachectic, contractures or unkempt General Appearance ED: well developed and NAD; Negative for unkempt, cachectic or contractures Nutritional Appearance: Negative for cachectic HEENT Reports moist mucous membranes normocephalic and atraumatic; Negative for trauma or tenderness Eyes PERRL Neck full ROM and supple Chest Wall inspection of chest normal and palpation of chest normal Resp normal respiratory effort, no retractions and clear to auscultation bilaterally Cardio regular rate, regular rhythm, S1 normal heart sound, S2 normal heart sound and no murmurs Rate: Negative for bradycardia or tachycardic GI non-tender, non-distended and no masses Auscultation: normoactive bowel sounds Palpation: soft; Negative for tender, guarding or rebound tenderness present Back/Spine no CVA tenderness General Back: Negative for CVA tenderness, swelling or other Cervical Spine: Negative for cervical spine tenderness Thoracic Spine / Upper Back: Negative for thoracic spinal tenderness Lumbar Spine / Lower Back: Negative for lumbar spinal tenderness, straight leg raise negative bilaterally or straight leg raise positive right Extremity full ROM; Negative for normal to inspection Extremity Narrative: Bilateral feet have redness over the skin grafts consistent with an early cellulitis. No lymphangitic streaking. No inguinal lymphadenopathy. No involvement outside the midportion of the feet. General Extremety ED: Negative for cyanosis or edema General Extremity: Negative for cyanosis or edema Neuro oriented x3, CN's II-XII intact bilaterally, moves all extremities and No no sensory deficits noted Neuro Narrative: Bilateral feet neuropathies. Sensorium / Orientation: oriented to person, oriented to place and oriented to time; Negative for orientation impaired, confused, lethargic or stuporous Motor Exam: strength 5/5 throughout Psych mental status grossly normal Appearance: Negative for unkempt Skin no wounds Skin Narrative: Bilateral feet redness consistent with cellulitis to the skin graft. 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 Concern for infection. Screening labs being obtained. Started on p.o. Keflex. She has an appointment to see her robotics application engineer on of this week. Repeat exam patient doing well at 3:59 PM. No change in the rash on her feet. She will be started on Keflex first dose given here. 4 times a day for 10 days. She is appointment to see her robotics application engineer later this week. Patient is comfortable with the plan. History & Record Review Discussion w/independent historian: Patient Additional record(s) reviewed:: Prior inpatient record, Prior outpatient record, Prior ED visit and Prior labs Lab Data Attestation: I reviewed the patient's lab results. Lab results narrative: CBC shows white count of 12.4. H&H 11.6 and 42. Platelets 288 Chemistries show gap at 9. BUN 23 creatinine 0.9. Glucose 111. Labs: Laboratory Results - last 24 hr 05/07/24 15:21 WBC 12.4 H RBC 6.11 H Hgb 11.6 L Hct 42.2 MCV 69.1 L MCH 19.0 L MCHC 27.5 L RDW Std Deviation 50.6 H RDW Coeff of Luiz 21.8 H Plt Count 288 MPV 9.8 Immature Gran % (Auto) 0.300 Neut % (Auto) 52.0 Lymph % (Auto) 36.8 [place] % (Auto) 6.7 Eos % (Auto) 3.9 Baso % (Auto) 0.3 Absolute Neuts (auto) 6.5 Absolute Lymphs (auto) 4.57 H Nucleated RBC % 0 Sodium 138 Potassium 4.0 Chloride 106 Carbon Dioxide 23.0 Anion Gap 9 BUN 23 H Creatinine 0.92 Estim Creat Clear Calc 81.69 Est GFR (MDRD) Af Amer 81 Est GFR (MDRD) Non-Af 67 BUN/Creatinine Ratio 25.1 H Glucose 111 H Calcium 9.5 Discharge Plan Triage Chief Complaint: Wound ED Provider: Bill Tello Dx/Rx/DC Orders Clinical Impression: Cellulitis, History of diabetes mellitus, History of neuropathy, History of skin graft Instructions: ED Cellulitis Prescriptions: New cephalexin 500 mg capsule 500 mg PO Q6 10 Days Qty: 40 0RF No Action rivaroxaban 20 MG tablet 20 mg PO DAILY Patient Comments: Blood thinner pregabalin [Lyrica] 300 mg capsule 300 mg PO BID multivitamin [Daily Multi-Vitamin] Tablet 1 tab PO DAILY Farxiga 5 mg tablet 5 mg PO DAILY insulin glargine [Lantus Solostar U-100 Insulin] 100 unit/mL (3 mL) insulin pen 60 unit subcut BID omega-3 acid ethyl esters 1 gram capsule 2 cap PO BID diclofenac sodium 75 mg tablet,delayed release (DR/EC) 75 mg PO BID venlafaxine 150 mg capsule,extended release 24hr 300 mg PO QHS bupropion HCl 150 mg tablet sustained-release 12 hr 150 mg PO BID alprazolam 3 mg tablet extended release 24 hr PO HS insulin lispro [Humalog KwikPen Insulin] 100 unit/mL insulin pen See Protocol subcut ACHS Protocol: 5. Sliding Scale Insulin High Dosing Condition: 150-209 mg/dl = 3 units Condition: 210-259 mg/dl = 6 units Condition: 260-324 mg/dl = 9 units Condition: 325-374 mg/dl = 12 units Condition: 375-409 mg/dl = 14 units Condition: 410-449 mg/dl = 16 units Condition: Greater than 449 call physician Protocol Text: - Use for Total Daily Dose of Insulin 81-120 units - Very insulin resistant or septic patients HIGH DOSING ALGORITHM triamcinolone acetonide 0.5 % cream topical fluticasone propion-salmeterol [AirDuo RespiClick] 232-14 mcg/actuation aerosol powdr breath activated 1 inh INHALATION BID Qty: 1 6RF Trelegy Ellipta 200-62.5-25 mcg blister with device 1 inh inhalation DAILY Qty: 3 3RF ipratropium-albuterol 0.5 mg-3 mg(2.5 mg base)/3 mL solution for nebulization 3 ml inhalation Q4H PRN PRN (Reason: SOB &/OR WHEEZING) Qty: 180 6RF amoxicillin-pot clavulanate 875-125 mg tablet 1 tab PO BID Qty: 20 0RF prednisone 10 mg tablet 10 mg PO QDAY Qty: 30 0RF Rx Instructions: take 4 tabs for three days, then 3 tabs for three days, then 2 tabs for three days, then 1 tab for 3 days atenolol 100 MG tablet 100 mg PO DAILY Patient Comments: Blood pressure/heart rate omeprazole 40 MG capsule,delayed release(DR/EC) 40 mg PO DAILY Patient Comments: Acid reflux pravastatin 40 MG tablet 40 mg PO QHS Patient Comments: Cholesterol docusate sodium 100 MG capsule 200 mg PO BID Patient Comments: Stool softener glimepiride 4 MG tablet 4 mg PO DAILY Patient Comments: diabetes quetiapine 100 MG tablet 100 mg PO QHS trazodone 50 MG tablet 50 mg PO QHS metformin 500 mg tablet extended release 24 hr 1,000 mg PO BID ferrous sulfate 325 MG tablet 325 mg PO DAILY Qty: 30 0RF Patient Comments: Iron supplement acetaminophen 650 mg tablet extended release 1,300 mg PO DAILY hydrocodone-acetaminophen 5-325 mg tablet 1 tab PO Q6H PRN PRN (Reason: Pain) 3 Days Qty: 12 0RF furosemide 40 mg tablet 40 mg PO DAILY Qty: 30 11RF albuterol sulfate 2.5 mg /3 mL (0.083 %) solution for nebulization 2.5 mg INHALATION Q6H PRN (Reason: SHORTNESS OF BREATH ) Qty: 180 3RF loratadine 10 mg tablet 10 mg PO DAILY Qty: 90 3RF (DME) Nebulizer machine See Rx Instructions .ROUTE .MEDSUPPLY Qty: 1 0RF Rx Instructions: As directed albuterol sulfate [Ventolin HFA] 90 mcg/actuation HFA aerosol inhaler 2 puff inhalation Q4H PRN PRN (Reason: Wheezing) Qty: 1 6RF Rx Instructions: with spacer montelukast 10 mg tablet 10 mg PO QPM Qty: 30 5RF guaifenesin 1,200 mg tablet extended release 12hr 1,200 mg PO Q12H Qty: 60 6RF Primary Care Provider: Camilo Sloan Referrals: Deepak Kulkarni DPM [Med Staff - Active Staff] - Keep Roseline appointment Camilo Sloan DO [Primary Care Provider] - Activity Restrictions/Additional Instructions: Follow-up with Dr. Deepak Kulkarni your robotics application engineer with your prescheduled appointment later this week. The antibiotic Keflex 4 times a day till gone. Return if it looks a lot worse like it is coming up your legs or you are developing a fever or feeling worse. Print Language: Argentine Disposition Disposition: Home, Self Care
[2024-05-07 15:29] LABS: Absolute Lymphocyte Count 4.57 X10^3/uL (0.83-4.51); Absolute Neutrophil Count 6.5 X10^3/uL (2.0-7.7); Basophil# 0.04 X10^3/uL; Basophil% 0.3 % (0-1); Eosinophil# 0.48 X10^3/uL; Eosinophils% 3.9 % (0-5); Hematocrit 42.2 % (37-47); Hemoglobin 11.6 g/dL (12.0-15.0); Lymphocyte # 4.57 X10^3/ul (0.83-4.51); Lymphocyte % 36.8 % (19-41); Mean Corp Hgb Conc 27.5 g/dL (32-36); Mean Corpuscular Volume 69.1 fL (81-99); Mean Platelet Vol. 9.8 fl (6.2-12.0); Monocyte# 0.83 X10^3/uL; Monocyte% 6.7 % (0-10); NRBC Flagged by Analyzer 0 % (0-5); Neutrophil # 6.45 X10^3/uL (2.7-7.7); POSITIVE MORPHOLOGY YES; Platelet Count 288 K/mm3 (150-450); RBC Distribution Width CV 21.8 % (11.6-14.6); RBC Distribution Width SD 50.6 fl (35.1-43.9); Red Blood Count 6.11 M/mm3 (4.2-5.4); White Blood Count 12.4 K/mm3 (4.4-11.0)
[2024-05-07 15:31] VITALS: BP 121/50; PULSE 60; RESP 16; TEMP 36.9; O2SAT 91
[2024-05-07] MEDS: Cephalexin 250 MG Capsule 500 MG PO (15:31)
[2024-05-07 15:35] LABS: Differential Indicated SCAN CRITERIA MET
[2024-05-07 15:41] LABS: Anion Gap 9 (5-15); BUN 23 mg/dL (7-18); BUN/Creat Ratio 25.1 RATIO (10-20); Calcium,Total 9.5 mg/dL (8.5-10.1); Chloride 106 mmol/L (98-107); Creatinine, Serum 0.92 mg/dL (0.55-1.02); EST Glomerular Filtration Rate 67 mL/min (>60); Est Glom Filt Rate - Afr Amer 81 mL/min (>60); Estimated Creatinine Clearance 81.69 ml/min; Glucose 111 mg/dL (74-106); Sodium Level 138 mmol/L (136-145)
[2024-05-07 16:12] VITALS: BP 121/50; PULSE 60; RESP 16; TEMP 36.9; O2SAT 94
[2024-05-07 16:44] LABS: Anisocytosis 2+; Differential Comment SCANNED
== END 2024-05-07 16:23 | disposition home or self-care (01) ==
PROVIDERS: Emergency Provider Emergency Medicine; PCP Preventive Medicine Occupational Medicine; Visit Provider Emergency Medicine
DX: L03.115 Cellulitis of right lower limb (principal); J44.9 Chronic obstructive pulmonary disease, unspecified; Z79.4 Long term (current) use of insulin; E11.40 Type 2 diabetes mellitus with diabetic neuropathy, unspecified; I10 Essential (primary) hypertension; L03.116 Cellulitis of left lower limb; F17.200 Nicotine dependence, unspecified, uncomplicated; Z79.84 Long term (current) use of oral hypoglycemic drugs; Z79.51 Long term (current) use of inhaled steroids; Z79.899 Other long term (current) drug therapy
CPT/HCPCS: 80048; 85025; 99283; A4216

== ENCOUNTER → 2024-05-09 | Outpatient (CLI) | payer MEDICAID, SELFPAY | END | disposition home or self-care (01) | LOC: LABSPEC 17:09 | PROVIDERS: PCP Preventive Medicine Occupational Medicine; Visit Provider Preventive Medicine Occupational Medicine | DX: L03.115 Cellulitis of right lower limb (principal); L03.116 Cellulitis of left lower limb | CPT/HCPCS: 87070; 87205 ==

== ENCOUNTER → 2024-05-15 | Outpatient (CLI) | payer MEDICAID, SELFPAY | END | disposition home or self-care (01) | LOC: ONC 09:23 | PROVIDERS: PCP Preventive Medicine Occupational Medicine; Referring Provider Nurse Practitioner Acute Care; Visit Provider Nurse Practitioner Acute Care | DX: R91.8 Other nonspecific abnormal finding of lung field (principal); R91.1 Solitary pulmonary nodule ==

== ENCOUNTER 2024-05-28 08:58 | Outpatient (RCR) | payer MEDICAID, SELFPAY ==
[2024-05-28 09:33] VITALS: BP 137/96; PULSE 70; RESP 18; TEMP 36.4
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
--- NOTE | 2024-05-29 09:57 | WC ---
PHOTO 05/28/24 RIGHT DORSAL FOOT
--- NOTE | 2024-05-29 10:09 | WC ---
PHOTO 05/28/24 LEFT DORSAL FOOT
== END 2024-06-01 23:59 | disposition home or self-care (01) ==
LOC: WC 08:58
PROVIDERS: PCP Preventive Medicine Occupational Medicine; Referring Provider Physician Assistant; Visit Provider Nurse Practitioner Family
DX: Z94.5 Skin transplant status (principal); J96.11 Chronic respiratory failure with hypoxia; I11.0 Hypertensive heart disease with heart failure; I50.9 Heart failure, unspecified; J43.9 Emphysema, unspecified; E11.42 Type 2 diabetes mellitus with diabetic polyneuropathy; E11.51 Type 2 diabetes mellitus with diabetic peripheral angiopathy without gangrene; Z79.4 Long term (current) use of insulin; R60.0 Localized edema; D64.9 Anemia, unspecified; M79.7 Fibromyalgia; K21.9 Gastro-esophageal reflux disease without esophagitis; I73.9 Peripheral vascular disease, unspecified; G47.33 Obstructive sleep apnea (adult) (pediatric); F17.210 Nicotine dependence, cigarettes, uncomplicated; Z79.1 Long term (current) use of non-steroidal anti-inflammatories (NSAID); Z79.01 Long term (current) use of anticoagulants; Z79.84 Long term (current) use of oral hypoglycemic drugs; Z79.51 Long term (current) use of inhaled steroids; Z79.899 Other long term (current) drug therapy
CPT/HCPCS: 97597; 99214; G0463

== ENCOUNTER → 2024-06-19 | Outpatient (CLI) | payer MEDICAID, SELFPAY ==
--- NOTE | 2024-06-19 10:30 | PET_ITS ---
EXAM: PET/CT TUMOR BASE -THIGH INIT CLINICAL HISTORY: ABNORMAL FINDINGS IN LUNG. Smoker, with new lung nodule. COMPARISON: None provided. TECHNIQUE: F-18 FDG PET-CT, performed from the skull base to the mid thigh. Dose: 14.47 mCi F-18 FDG intravenous. FINDINGS: Neck: No focus of abnormal hypermetabolic activity is seen. Chest: Mild increased uptake in areas a few left rib fractures is seen. These are of uncertain chronicity. Within the lungs, no focus of abnormal hypermetabolic activity is noted, at this time. This includes the area of pleural-based density, possibly representing scarring, of the posterior left upper lobe. Abdomen and pelvis: No focus abnormal hypermetabolic activity is seen. Bones: No findings are seen to suggest the presence of osseous metastatic disease. PET/PET/CT Tumor Base -Thigh Init IMPRESSION: 1. Within the lungs, no focus of abnormal hypermetabolic activity is seen. 2. Mild increased uptake in areas of prior left rib fractures. Reading Location: [id number]
== END | disposition home or self-care (01) ==
LOC: ONC 09:52
PROVIDERS: PCP Preventive Medicine Occupational Medicine; Referring Provider Nurse Practitioner Acute Care; Visit Provider Nurse Practitioner Acute Care
DX: R91.1 Solitary pulmonary nodule (principal); R91.8 Other nonspecific abnormal finding of lung field; F17.200 Nicotine dependence, unspecified, uncomplicated
CPT/HCPCS: 78815; A9552

== ENCOUNTER 2024-07-21 22:24 | Emergency (ER) | payer MEDICAID, SELFPAY ==
[2024-07-21] VITALS (8 sets, daily range): BP systolic 111–123; BP diastolic 54–59; PULSE 84–88; RESP 20–24; TEMP 37.2–37.6; O2SAT 93–99; BMI 49.8
--- NOTE | 2024-07-21 22:40 | EKG12_ITS ---
Test Reason : Blood Pressure : */* mmHG Vent. Rate : 87 BPM Atrial Rate : 87 BPM P-R Int : 152 ms QRS Dur : 90 ms QT Int : 372 ms P-R-T Axes : -6 58 54 degrees QTcB Int : 447 ms Normal sinus rhythm Normal ECG Confirmed by RAMSEY DEAN, JENNIFER ([id number]), supervising editor news reel CHENG LÓPEZ ([id number]) on 07/23/2024 8:38:30 AM Referred By: Moo Watkins Confirmed By: JENNIFER MUSTAFA MD
[2024-07-21] MEDS: Acetaminophen 500 MG Tablet 1000 MG PO (22:49)
[2024-07-21] MEDS: Dicyclomine 10 MG Capsule 20 MG PO (22:49)
[2024-07-21] MEDS: Mag Hydrox/Al Hydrox/Simeth 30 ML UDC PO (22:49)
[2024-07-21 22:52] LABS: Absolute Lymphocyte Count 2.14 X10^3/uL (0.83-4.51); Basophil# 0.03 X10^3/uL; Basophil% 0.2 % (0-1); Eosinophil# 0.06 X10^3/uL; Eosinophils% 0.3 % (0-5); Hematocrit 37.1 % (37-47); Hemoglobin 11.2 g/dL (12.0-15.0); Lymphocyte # 2.14 X10^3/ul (0.83-4.51); Mean Corp Hgb Conc 30.2 g/dL (32-36); Mean Corpuscular Hgb 20.2 pg (27.0-32.0); Mean Platelet Vol. 9.6 fl (6.2-12.0); Monocyte# 1.11 X10^3/uL; Monocyte% 5.7 % (0-10); NRBC Flagged by Analyzer 0 % (0-5); Neutrophil # 15.99 X10^3/uL (2.7-7.7); Neutrophil % 82.1 % (47-70); POSITIVE MORPHOLOGY YES; Platelet Count 259 K/mm3 (150-450); RBC Distribution Width CV 21.1 % (11.6-14.6); RBC Distribution Width SD 47.7 fl (35.1-43.9); Red Blood Count 5.54 M/mm3 (4.2-5.4); White Blood Count 19.5 K/mm3 (4.4-11.0)
[2024-07-21] MEDS: 0.9% Normal Saline (500mL Bag) 500 ML 999 ML IV (22:52)
[2024-07-21] MEDS: Ipratropium/Albuterol Sulfate 3 ML AMPUL.NEB INHALATION (22:52)
[2024-07-21 22:54] LABS: Differential Indicated SCAN CRITERIA MET
--- NOTE | 2024-07-21 23:00 | RAD_ITS ---
PROCEDURE: CHEST 1 VIEW (PORTABLE) 07/21/2024 REASON FOR EXAM: COUGH SOB CP TECHNIQUE: Frontal view of the chest. COMPARISON: None FINDINGS: Hardware: None Heart: Heart size is moderately enlarged. Lungs: Prominent bilateral interstitial markings with bibasilar effusion/atelectasis. No pneumothorax. Bones: Degenerative changes are identified within the thoracic spine. Other: RAD/Chest 1 View (Portable) IMPRESSION: Cardiomegaly with pulmonary vascular congestion. Bibasilar effusion/atelectasi s. Reading Location[facility]
--- NOTE | 2024-07-21 23:04 | EX.ED.DYSGE1 ---
HPI History of Present Illness Chief Complaint: Chest Pain Informant: patient and EMS Narrative Narrative: 59-year-old female states all day today she has felt really poorly and had pain everywhere. She states she is currently on doxycycline and Bactrim simultaneously for cellulitis in her left hand which is doing a lot better. She has a history of COPD wears oxygen intermittently at home, she has had a mild acute cough and mild dyspnea today although she has not tried to treat it with a breathing treatment, her chest is achy but she has the same achy pain throughout her entire body arms and legs, she states she has had periumbilical abdominal discomfort since starting the antibiotic and it is worse after she takes the pills but still persistent and does not go away even when she is not taking them, she denies any nausea vomiting diarrhea blood in her stool melena. No trouble urinating. She started having a fever tonight, since she had the cellulitis she has had no fevers. She is having some headache it is not severe and sudden. [facility] Medical History Wears glasses Post-menopausal Depression Anxiety Open wound History of steroid therapy Insulin dependent diabetes mellitus Arthritis Diabetes Anemia DVT (deep venous thrombosis) Excessive bleeding Pulmonary embolism Back pain TIA (transient ischemic attack) Gastric reflux Smoker CPAP (continuous positive airway pressure) dependence Sleep apnea On home oxygen therapy Emphysema, unspecified Asthma Chronic cough Leg cramps History of edema Normal stress echocardiogram History of echocardiogram History of CHF (congestive heart failure) Cardiology follow-up encounter Personal history of thromboembolic disease GERD (gastroesophageal reflux disease) Type 2 diabetes mellitus Essential hypertension Livedo reticularis Tubal Fibromyalgia Morbid (severe) obesity due to excess calories Nicotine dependence, uncomplicated Patient's noncompliance with other medical treatment and regimen Obstructive sleep apnea Chronic sinusitis Otitis media Bronchitis Osteoarthritis of right hip Costal chondritis Itching Chronic hypoxemic respiratory failure Shortness of breath Healthcare-associated pneumonia COPD exacerbation COPD, frequent exacerbations Chronic back pain Rheumatoid arthritis Tobacco dependence syndrome History of pulmonary embolus (PE) History of DVT of lower extremity Anxiety disorder Home Medications ?Medication ?Instructions ?Recorded ?Last Taken ?Type atenolol 100 mg tablet 100 mg PO DAILY blood pressure 12/15/13 06/04/22 05:00 History omeprazole 40 mg capsule,delayed 40 mg PO DAILY GERD 12/15/13 06/03/22 History release pravastatin 40 mg tablet 40 mg PO QHS cholesterol 03/17/14 06/03/22 History glimepiride 4 mg tablet 4 mg PO DAILY diabetes 04/23/15 06/03/22 History docusate sodium 100 mg capsule 200 mg PO BID Constipation 03/10/17 06/03/22 History pregabalin 300 mg capsule (Lyrica) 300 mg PO BID nerve pain 03/10/17 06/03/22 History rivaroxaban 20 mg tablet 20 mg PO DAILY blood thinner 03/10/17 06/02/22 17:00 History quetiapine 100 mg tablet 100 mg PO QHS sleep 12/12/17 06/03/22 History trazodone 50 mg tablet 50 mg PO QHS sleep 12/13/17 06/03/22 History diclofenac sodium 75 mg 75 mg PO BID 11/27/21 06/03/22 History tablet,delayed release insulin glargine 100 unit/mL (3 60 unit subcut BID diabetes 11/27/21 06/03/22 06:00 History mL) subcutaneous pen (Lantus Solostar U-100 Insulin) omega-3 acid ethyl esters 1 gram 2 cap PO BID supplement 11/27/21 06/03/22 History capsule venlafaxine 150 mg 300 mg PO QHS mental health 11/27/21 Unknown History capsule,extended release 24 hr metformin 500 mg tablet,extended 1,000 mg PO BID diabetes 05/31/22 06/02/22 History release 24 hr furosemide 40 mg tablet 40 mg PO DAILY diabetic #30 tabs 04/22/23 Unknown Rx albuterol sulfate 2.5 mg/3 mL 2.5 mg (3 mL) inhalation Q6H PRN 07/11/23 Unknown Rx (0.083 %) solution for nebulization SHORTNESS OF BREATH #180 vials fluticasone fur. 200 mcg-umeclid 1 inh inhalation DAILY #3 ea 11/25/23 Unknown Rx 62.5 mcg-vilant 25 mcg inhalat.powder (Trelegy Ellipta) ipratropium 0.5 mg-albuterol 3 mg 3 ml inhalation Q4H PRN PRN SOB 11/25/23 Unknown Rx (2.5 mg base)/3 mL nebulization &/OR WHEEZING #180 mL soln loratadine 10 mg tablet 10 mg PO DAILY allergies #90 tabs 12/02/23 Unknown Rx Nebulizer machine #1 ea 12/07/23 Unknown Rx albuterol sulfate 90 mcg/actuation 2 puff inhalation Q4H PRN PRN 12/29/23 Unknown Rx aerosol inhaler (Ventolin HFA) Wheezing ##1 montelukast 10 mg tablet 10 mg PO QPM allergies #30 tabs 01/27/24 Unknown Rx guaifenesin 1,200 mg tablet, 1,200 mg PO Q12H cough #60 tabs 02/02/24 Unknown Rx extended release 12 hr fluticasone 232 mcg-salmeterol 14 1 inh inhalation BID #1 ea 06/01/24 Unknown Rx mcg/actuation breath activated powdr (AirDuo RespiClick) acetaminophen 650 mg 1,300 mg PO Q8H PRN PAIN 07/03/24 Unknown History tablet,extended release alprazolam 1 mg tablet 1 mg PO TID PRN anxiety 07/03/24 Unknown History ammonium lactate 12 % lotion 1 applic topical ONCE PRN 07/03/24 Unknown History dapagliflozin propanediol 10 mg 10 mg PO DAILY 07/03/24 Unknown History tablet (Farxiga) fluticasone propionate 50 1 spray intranasal DAILY 07/05/24 Unknown History mcg/actuation nasal spray,suspension doxycycline hyclate 100 mg tablet 100 mg PO BID 07/21/24 Unknown History sulfamethoxazole 800 1 tab PO BID 07/21/24 Unknown History mg-trimethoprim 160 mg tablet prednisone 20 mg tablet 20 mg PO DAILY 5 days #5 tabs 07/22/24 Unknown Rx Allergy/AdvReac Type Severity Reaction Status Date / Time enoxaparin sodium (From Allergy Mild Itching Verified 07/21/24 22:26 Lovenox) heparin Allergy Itching Verified 07/21/24 22:26 varenicline (From Chantix) AdvReac Intermediate MENTAL Verified 07/21/24 22:26 ISSUES Family History Other No pertinent family history Surgical History History of skin graft Hx of surgical procedure History of tubal ligation No pertinent past surgical history Social History Smoking Status: Current every day smoker tobacco type: cigarettes quit status: not considering quitting alcohol intake: never substance use type: does not use caffeine: Yes Type: coffee Number of servings: 5 ROS ROS ED Constitutional Constitutional ED: Reports body ache(s), chills, fatigue, fever(s), headache(s), malaise and subjective Eyes Eyes: Denies change in vision or diplopia ENT ENT ED: Denies rhinorrhea or sore throat Cardiovascular Cardiovascular: Reports chest pain; Denies palpitations Respiratory/Chest Respiratory/Chest: Reports cough and dyspnea Gastrointestinal Gastrointestinal: Reports abdominal pain; Denies diarrhea, melena, nausea or vomiting Genitourinary Genitourinary ED: Denies dysuria or hematuria Musculoskeletal Musculoskeletal: Reports myalgias; Denies arthralgias or neck pain Integumentary Denies abscess or rash Neurologic Neurologic: Reports headache(s); Denies paresthesias or weakness Psychiatric Psychiatric: Denies suicidal thoughts EXAM Physical Exam Const Vital Signs: 07/21/24 22:26 07/21/24 22:30 07/21/24 22:30 Temperature 99.6 F H 99.6 F H Temperature Source Oral Oral Pulse Rate 87 87 Respiratory Rate 21 H 23 H Respiratory Effort Short of Breath Blood Pressure 111/54 L 111/54 L Blood Pressure Mean 73 73 Pulse Ox 93 94 Oxygen Delivery Method Nasal Cannula Nasal Cannula Oxygen Flow Rate (L/min) 2 2 07/21/24 22:55 07/21/24 23:00 07/21/24 23:01 Temperature 99 F Temperature Source Oral Pulse Rate 88 88 Respiratory Rate 20 H 24 H Respiratory Effort Blood Pressure 123/56 H Blood Pressure Mean 75 Pulse Ox 99 95 Oxygen Delivery Method Nasal Cannula Nasal Cannula Oxygen Flow Rate (L/min) 2 2 07/22/24 00:00 Temperature 99 F Temperature Source Oral Pulse Rate 87 Respiratory Rate 20 H Respiratory Effort Blood Pressure 128/53 H Blood Pressure Mean 78 Pulse Ox 95 Oxygen Delivery Method Nasal Cannula Oxygen Flow Rate (L/min) 2 Positive well nourished, well developed and obese Constitutional Narrative: Malaised-appearing, no distress General Appearance ED: well developed and NAD Nutritional Appearance: obese HEENT Reports moist mucous membranes normocephalic and atraumatic Eyes PERRL and EOMs intact bilaterally Neck full ROM and supple Resp normal respiratory effort Auscultation: wheezes expiratory wheezes and throughout; Negative for rales or rhonchi Cardio regular rate, regular rhythm and no murmurs GI non-tender and non-distended Auscultation: normoactive bowel sounds Palpation: soft Back/Spine no CVA tenderness General Back: other FROM Extremity normal to inspection and no calf tenderness Extremity Narrative: Left hand benign, cellulitis appears to have resolved, no tenderness. Full range of motion all fingers. General Extremety ED: Negative for edema, pulses abnormal or tenderness General Extremity: Negative for edema or pulses abnormal Neuro oriented x3, CN's II-XII intact bilaterally and no sensory deficits noted Sensorium / Orientation: awake and alert Motor Exam: strength 5/5 throughout Psych mental status grossly normal Skin no rashes or lesions noted and no wounds MDM MDM MDM Narrative Medical decision making narrative: Given the patient's fever and symptoms I obtained a septic workup. She does have a leukocytosis of 19.5 there is no bandemia. She has not been on steroids recently to explain this that I can see. She has a slightly elevated lactic acid at 2.2, her troponin is normal, urinalysis is negative for infection, 1 view chest x-ray on my interpretation shows no acute pneumonia. Radiology said this could be consistent with mild pulmonary edema, I do not think this is pulmonary edema. She was wheezing throughout she felt much better after duo nebulizer treatment, and on reevaluation after that, Tylenol, 500 cc of IV fluid, dicyclomine, and Mylanta, she is feeling much better with regards to breathing and her abdominal discomfort which she said additionally improved after she passed some gas. Her abdominal exam is benign I do not think a CT of the abdomen/pelvis is needed in order to try to find a source for her symptoms. I do agree with her that this is probably indigestion. Her COVID/influenza/RSV swab returned negative. Her symptoms are consistent with a viral syndrome and it is certainly possible that she has a different virus, I think it is less likely that she has an occult bacteremia, but we did obtain blood cultures. I am treating her with Rocephin 2 g empirically because of her leukocytosis mainly and because I do not have an obvious source of the infection and I want to cover for unknown sources. The majority of her new symptoms are pulmonary, so also treating her COPD exacerbation with steroids so she was started on Solu-Medrol. Her cardiac workup is negative, including troponin and EKG, ruling out myocarditis and ACS. We discussed admitting her to the hospital, however she does not want to and really wants to go home. Her vital signs are all completely normal. Clinically she does not look septic although that is in the differential which is why I discussed admitting her. Additionally she is already anticoagulated, so I do not think she needs a CT of the chest to look for occult infections that we are already addressing, or pulmonary embolus. The cellulitis she states she had appears to be resolved, and I see no other evidence of an acute skin infection anywhere. She is on doxycycline and Bactrim, I do not think we need to prescribe a different antibiotic right now going forward, she can continue those and follow-up or return if worse, and as I discussed with her if her blood cultures returned positive at that point she would need to return and stay and she is agreeable with that. History & Record Review Additional record(s) reviewed:: Prior outpatient record (Echo with normal EF 55%, no sign of diastolic dysfunction, was performed about 5-6 years ago; no record of CHF) Lab Data Attestation: I reviewed the patient's lab results. Labs: Laboratory Results - last 24 hr 07/21/24 07/21/24 07/21/24 22:35 22:50 23:24 WBC 19.5 H RBC 5.54 H Hgb 11.2 L Hct 37.1 MCV 67.0 L MCH 20.2 L MCHC 30.2 L RDW Std Deviation 47.7 H RDW Coeff of Luiz 21.1 H Plt Count 259 MPV 9.6 Immature Gran % (Auto) 0.700 Neut % (Auto) 82.1 H Lymph % (Auto) 11.0 L Mckinley % (Auto) 5.7 Eos % (Auto) 0.3 Baso % (Auto) 0.2 Absolute Neuts (auto) 16.0 H Absolute Lymphs (auto) 2.14 Nucleated RBC % 0 Differential Comment SCANNED Polychromasia RARE Anisocytosis 2+ Microcytosis 1+ Macrocytosis RARE Stomatocytes RARE PT 20.4 H INR 1.7 APTT 41.0 H Sodium 136 Potassium 4.3 Chloride 101 Carbon Dioxide 21.3 Anion Gap 14 BUN 28 H Creatinine 0.93 Estim Creat Clear Calc 82.75 Est GFR (MDRD) Non-Af 72 BUN/Creatinine Ratio 29.7 H Glucose 174 H Lactic Acid 2.2 H* Calcium 9.1 Total Bilirubin 0.21 AST 16 ALT 23 Alkaline Phosphatase 95 Troponin T High Sens < 6 Total Protein 7.1 Albumin 3.9 Globulin 3.1 Albumin/Globulin Ratio 1.3 Urine Color Yellow Urine Clarity Clear Urine pH 6.0 Ur Specific [place] 1.015 Urine Protein 15 H Urine Glucose (UA) 1000 H Urine Ketones Negative Urine Occult Blood Negative Urine Nitrite Negative Urine Bilirubin Negative Urine Urobilinogen Normal Ur Leukocyte Esterase Negative Urine RBC 0 SEEN Urine WBC 5-10 SEEN Ur Squamous Epith Cells 0 SEEN Urine Bacteria RARE Urine Mucus 0 SEEN Radiography Diagnostic Testing: Clinical Impression(s) from Imaging Studies Chest X-Ray 07/21/24 23:00 IMPRESSION: Cardiomegaly with pulmonary vascular congestion. Bibasilar effusion/atelectasis. Reading Location: [employer] Rhythm Strip Rhythm Strip: Sinus Rhythm Rate: 90 Ectopy: None EKG Initial EKG: Attestation: I personally reviewed and interpreted this EKG as follows: Interpretation: Sinus Rhythm and No Acute Injury Pattern Comments: Nml axis & intervals; nml EKG Discharge Plan Triage Chief Complaint: Chest Pain ED Provider: Moo Watkins Dx/Rx/DC Orders Clinical Impression: Acute exacerbation of chronic obstructive pulmonary disease (COPD), Fever, Dyspepsia, Leukocytosis, Acute bronchitis Instructions: ED COPD Flare Prescriptions: New prednisone 20 mg tablet 20 mg PO DAILY 5 Days Qty: 5 0RF No Action rivaroxaban 20 MG tablet 20 mg PO DAILY Patient Comments: Blood thinner pregabalin [Lyrica] 300 mg capsule 300 mg PO BID insulin glargine [Lantus Solostar U-100 Insulin] 100 unit/mL (3 mL) insulin pen 60 unit subcut BID omega-3 acid ethyl esters 1 gram capsule 2 cap PO BID diclofenac sodium 75 mg tablet,delayed release (DR/EC) 75 mg PO BID venlafaxine 150 mg capsule,extended release 24hr 300 mg PO QHS Trelegy Ellipta 200-62.5-25 mcg blister with device 1 inh inhalation DAILY Qty: 3 3RF ipratropium-albuterol 0.5 mg-3 mg(2.5 mg base)/3 mL solution for nebulization 3 ml inhalation Q4H PRN PRN (Reason: SOB &/OR WHEEZING) Qty: 180 6RF alprazolam 1 mg tablet 1 mg PO TID PRN (Reason: anxiety) Patient Comments: [NO ORIGINAL SIG] ammonium lactate 12 % lotion 1 applic topical ONCE PRN fluticasone propionate 50 mcg/actuation spray,suspension 1 spray intranasal DAILY Rx Instructions: each nostril atenolol 100 MG tablet 100 mg PO DAILY Patient Comments: Blood pressure/heart rate omeprazole 40 MG capsule,delayed release(DR/EC) 40 mg PO DAILY Patient Comments: Acid reflux pravastatin 40 MG tablet 40 mg PO QHS Patient Comments: Cholesterol docusate sodium 100 MG capsule 200 mg PO BID Patient Comments: Stool softener glimepiride 4 MG tablet 4 mg PO DAILY Patient Comments: diabetes quetiapine 100 MG tablet 100 mg PO QHS trazodone 50 MG tablet 50 mg PO QHS metformin 500 mg tablet extended release 24 hr 1,000 mg PO BID acetaminophen 650 mg tablet extended release 1,300 mg PO Q8H PRN (Reason: PAIN) sulfamethoxazole-trimethoprim 800-160 mg tablet 1 tab PO BID doxycycline hyclate 100 mg tablet 100 mg PO BID dapagliflozin propanediol [Farxiga] 10 mg tablet 10 mg PO DAILY furosemide 40 mg tablet 40 mg PO DAILY Qty: 30 11RF albuterol sulfate 2.5 mg /3 mL (0.083 %) solution for nebulization 2.5 mg INHALATION Q6H PRN (Reason: SHORTNESS OF BREATH ) Qty: 180 3RF loratadine 10 mg tablet 10 mg PO DAILY Qty: 90 3RF (DME) Nebulizer machine See Rx Instructions .ROUTE .MEDSUPPLY Qty: 1 0RF Rx Instructions: As directed albuterol sulfate [Ventolin HFA] 90 mcg/actuation HFA aerosol inhaler 2 puff inhalation Q4H PRN PRN (Reason: Wheezing) Qty: 1 6RF Rx Instructions: with spacer montelukast 10 mg tablet 10 mg PO QPM Qty: 30 5RF guaifenesin 1,200 mg tablet extended release 12hr 1,200 mg PO Q12H Qty: 60 6RF fluticasone propion-salmeterol [AirDuo RespiClick] 232-14 mcg/actuation aerosol powdr breath activated 1 inh INHALATION BID Qty: 1 6RF Primary Care Provider: Camilo Sloan Referrals: Camilo Sloan DO [Primary Care Provider] - As soon as possible Activity Restrictions/Additional Instructions: Continue to take your to antibiotics until completed. You may start the prednisone prescription evening/night of 07/22 since you received your first dose in the emergency department. If you start having more wheezing, you may start with doing your breathing treatments as needed at home. If you are feeling worse or having concern about anything else, you may return to the ER for reevaluation at any time. Print Language: Maori Disposition Disposition: Home, Self Care
[2024-07-21 23:06] LABS: International Normalized Ratio 1.7; Prothrombin Time (Protime)PT. 20.4 SECONDS (11.7-14.9)
[2024-07-21 23:13] LABS: Troponin T High Sensitivity < 6 ng/L (<=14)
[2024-07-21 23:14] LABS: ALB/GLOB Ratio 1.3 RATIO (0.9-2.4); AST(SGOT) 16 U/L (<=31); Alanine Aminotransfer ALT/SGPT 23 U/L (<=34); Albumin, Serum 3.9 g/dL (3.5-5.0); Alkaline Phosphatase 95 U/L (35-104); Anion Gap 14 (5-15); BUN 28 mg/dL (4-19); BUN/Creat Ratio 29.7 RATIO (10-20); Calcium,Total 9.1 mg/dL (7.6-11.0); Carbon Dioxide 21.3 mmol/L (21.0-32.0); Chloride 101 mmol/L (98-108); Creatinine, Serum 0.93 mg/dL (0.70-1.20); EST Glomerular Filtration Rate 72 (>60); Estimated Creatinine Clearance 82.75 ml/min (50-250); Globulin 3.1 g/dL (2.2-4.2); Glucose 174 mg/dL (70-99); Potassium 4.3 mmol/L (3.3-5.1); Protein, Total 7.1 g/dL (5.9-8.4); Sodium Level 136 mmol/L (133-145); Total Bilirubin 0.21 mg/dL (0.00-1.30)
[2024-07-21 23:28] LABS: Differential Comment SCANNED
[2024-07-21 23:28] LABS: Mucous, Urine 0 SEEN /hpf (<or=2+); Red Blood Cells-Urine 0 SEEN /hpf (0-5); Squamous Epithelial Cells - UA 0 SEEN /hpf (5-10)
[2024-07-21 23:29] LABS: Anisocytosis 2+; Macrocytosis RARE; Microcytosis 1+; Polychromasia RARE; Stomatocyte RARE
[2024-07-21 23:30] LABS: Color, Urine Yellow (Yellow); Glucose, Dipstick 1000 mg/dl (Normal); Ketone-Dipstick Negative (Negative); Leukocyte Esterase-Dipstick Negative /ul (Negative); Nitrite-Dipstick Negative (Negative); Occult Blood-Urine Negative /ul (Negative); Protein-Dipstick 15 mg/dl (Negative); Specific Gravity, Urine 1.015 (1.002-1.030); Urine Bilirubin Dipstick Negative (Negative); Urine Clarity Clear (Clear); Urine Urobilinogen Normal (Normal)
[2024-07-21 23:42] LABS: Lactic Acid 2.2 mmol/L (0.0-2.0)
[2024-07-22] VITALS (7 sets, daily range): BP systolic 106–128; BP diastolic 51–57; PULSE 75–87; RESP 15–29; TEMP 37.1–37.2; O2SAT 93–95
[2024-07-22] LABS: Bacteria RARE /hpf (None Seen); White Blood Cells 5-10 SEEN /hpf (0-5)
[2024-07-22] MEDS: MethylPREDNISolone 125 MG/2 ML Vial IV (00:33)
[2024-07-22] MEDS: Ceftriaxone 2 GM in 0.9% Normal Saline (50mL MB+) 50 ML IV (00:33)
[2024-07-22 01:10] LABS: Troponin T High Sens 2 HR < 6 ng/L (<=14)
[2024-07-22 03:04] LABS: Reflex Lactate? Y
== END 2024-07-22 01:42 | disposition home or self-care (01) ==
PROVIDERS: Emergency Provider Emergency Medicine; PCP Preventive Medicine Occupational Medicine; Referring Provider Emergency Medicine; Visit Provider Emergency Medicine
DX: J44.1 Chronic obstructive pulmonary disease with (acute) exacerbation (principal); I11.0 Hypertensive heart disease with heart failure; I50.9 Heart failure, unspecified; E11.9 Type 2 diabetes mellitus without complications; Z79.4 Long term (current) use of insulin; R07.9 Chest pain, unspecified; D72.829 Elevated white blood cell count, unspecified; J20.9 Acute bronchitis, unspecified; Z86.73 Personal history of transient ischemic attack (TIA), and cerebral infarction without residual deficits; G47.33 Obstructive sleep apnea (adult) (pediatric); Z99.89 Dependence on other enabling machines and devices; Z79.899 Other long term (current) drug therapy; Z79.84 Long term (current) use of oral hypoglycemic drugs; Z79.01 Long term (current) use of anticoagulants; Z79.51 Long term (current) use of inhaled steroids; F32.A Depression, unspecified; F41.9 Anxiety disorder, unspecified; Z98.51 Tubal ligation status; F17.210 Nicotine dependence, cigarettes, uncomplicated; R10.13 Epigastric pain; R50.9 Fever, unspecified
CPT/HCPCS: 71045; 80053; 81001; 83605; 84484; 85025; 85610; 85730; 87040; 87086; 87631; 93005; 94640; 96361; 96365; 96375; 99285; A4216; J0696

== ENCOUNTER → 2024-09-28 | Outpatient (CLI) | payer MEDICAID, SELFPAY ==
--- NOTE | 2024-09-28 09:40 | ART_ITS ---
Reason For Study Reason For Study: PVD Procedure A bilateral lower extremity continuous wave Doppler with analog waveform analysis,segmental pressures,and ankle brachial indexes without exercise. Left Segmental Pressures Left brachial= 134mmHg. Left posterior tibial artery = 174mmHg. Left dorsalis pedis artery = 155mmHg. Left digit = 101 mmHg. The left posterior tibial artery waveforms are triphasic. The left dorsalis pedis waveforms are triphasic. Right Segmental Pressures Right brachial= 128mmHg. Right posterior tibial artery = 154mmHg. Right dorsalis pedis artery = 145mmHg. Right digit = 112 mmHg. The right posterior tibial artery waveforms are triphasic. The right dorsalis pedis waveforms are triphasic. Indices The right resting ankle brachial index is 1.15. The right ankle brachial index by the posterior tibial artery is 1.15. The right ankle brachial index by the dorsalis pedis is 1.08. The right digital- brachial index is 0.84. The left resting ankle brachial index is 1.30. The left ankle brachial index by the posterior tibial artery is 1.30. The left ankle brachial index by the dorsalis pedis is 1.16. The left digital-brachial index is 0.75. VL/Lower Ext Art Exam w/o Exercis Interpretation Summary Right DERICK 1.15, normal. TBI and Doppler/PVR waveforms of the right leg normal a t rest. Left DERICK 1.3, normal. TBI and Doppler/PVR waveforms of the left leg normal at r est. Ordering Physician: Deepak Kulkarni Referring Physician: Luis Felipe Mcadams Performed By: Samina Mccallum RVT, RDCS
== END | disposition home or self-care (01) ==
PROVIDERS: PCP Nurse Practitioner Family; Referring Provider Podiatrist; Visit Provider Podiatrist
DX: I73.9 Peripheral vascular disease, unspecified (principal)
CPT/HCPCS: 93923

== ENCOUNTER → 2024-11-02 | Outpatient (CLI) | payer MEDICAID, SELFPAY ==
--- NOTE | 2024-11-02 07:58 | VDLE_ITS ---
Reason For Study Reason For Study: Swelling BLE RIGHT LEFT GSV is normal. CFV is compressible, spontaneous, phasic, competent, CFV is compressible, spontaneous, phasic, competent and demonstrates normal augmentation. and demonstrates normal augmentation. FV is compressible, spontaneous, phasic, competent FV is compressible, spontaneous, phasic, competent and demonstrates normal augmentation. and demonstrates normal augmentation. POP V is compressible, spontaneous, phasic, competent POP V is compressible, phasic, and INCOMPETENT for and demonstrates normal augmentation. greater than 1.0 second. T/P Trunk is compressible. T/P Trunk is compressible. PTV is compressible. PTV is compressible. LT PerV is compressible. RT PerV is compressible. SFJ is competent and measures 0.60cm x 0.63 cm. SFJ is competent and measures 0.68cm x 0.79 cm. GSV proximal thigh measures 0.36cm x 0.37 cm. GSV proximal thigh measures 0.71cm x 0.78 cm. GSV at knee measures 0.33cm x 0.30 cm. GSV at knee measures 0.48cm x 0.46 cm. GSV INCOMPETENT throughout for greater than 0.5 GSV is competent throughout. seconds. SSV mid calf is competent and measures 0.37cm x 0.43 ASV proximal calf is INCOMPETENT for greater than 0.5 cm. seconds and measures 0.27cm x 0.28 cm. SSV mid calf is competent and measures 0.18cm x 0.16 cm. VL/Venous Duplex US - [place] Extrem Interpretation Summary Deep veins of the bilateral lower extremities are patent and compressible segme ntally. There is no evidence of bilateral lower extremity deep vein thrombosis. The bilateral great saphenous veins appea r patent and compressible segmentally. Positive for reflux in the right popliteal vein. Positive for reflux in the left great saphenous vein throughout, accessory saph enous vein in calf. Ordering Physician: Melina Van Referring Physician: Luis Felipe Mcadams Performed By: Charleen Valle, THERESECS, RVT
== END | disposition home or self-care (01) ==
LOC: CVS 07:54
PROVIDERS: PCP Nurse Practitioner Family; Referring Provider Physician Assistant; Visit Provider Physician Assistant
DX: R60.0 Localized edema (principal); S91.301A Unspecified open wound, right foot, initial encounter; S91.302A Unspecified open wound, left foot, initial encounter; X58.XXXA Exposure to other specified factors, initial encounter
CPT/HCPCS: 93970

== ENCOUNTER → 2024-12-22 | Outpatient (CLI) | payer MEDICAID, SELFPAY ==
--- NOTE | 2024-12-22 09:44 | CT_ITS ---
PROCEDURE: CHEST WITHOUT CONTRAST 12/22/2024 REASON FOR EXAM: LUNG NODULE IN SMOKING Current smoker. COPD. TECHNIQUE: Chest CT without contrast. Coronal and Sagittal reconstruction series were provided. One or more dose reduction techniques were used (e.g., Automated exposure control, adjustment of the mA and/or kV according to patient size, use of iterative reconstruction technique RADIATION DOSE SUMMARY: CTDlvol: 20.14 mGy DLP: 644.16 mGycm COMPARISON: Prior study dated March 12, 2024. FINDINGS: Hardware: None Lymph nodes: Stable small benign-appearing bilateral axillary lymph nodes. No significant mediastinal lymph node or hilar lymph node seen. Heart and Vasculature: The heart is nonenlarged. Atherosclerotic calcifications of the thoracic aorta. Thoracic aorta and pulmonary arteries have normal contours; noncontrast technique limits evaluation. Coronary Artery Calcifications: Absent Lungs and Airways: The previously seen pleural-based nodular density in the posterior medial aspect of the left upper lobe has decreased in size as compared to prior study. Once again, there is evidence of of mild bilateral ground-glass appearance although there has been improvement as compared to prior study. No new abnormality is seen. Pleura: No pleural effusion. Upper Abdomen: Hypertrophy of the left adrenal gland. Questionable small adenoma. Bones: Degenerative changes of the thoracic spine. CT/Chest without Contrast IMPRESSION: Coronary artery calcification (CAC) is is absent Interval decrease in size of the pleural-based nodular density in the posterior medial aspect of the left upper lobe. Reading Location: [place] [id number]
--- OUTSIDE RECORDS SUMMARY | 2024-12-22 09:48 | XMS RPT_ITS | CCD ---
Author Organization [facility] CliniSyfl Care Team Providers Care Environmental Marketing Representative Name Role Phone Ne Steinberg Unavailable Unavailable PK SLOAN DO Primary Care Physician Dr. Pk Sloan Primary Care Provider Dr. Pk Sloan Referring Provider [phone] Bert ESCAPEMENT MATCHER, ESCAPEMENT MATCHER-C Zeny Attending Provider [phone] Leonard ESCAPEMENT MATCHER, JUAN-Fabiola Casey Attending Provider Dr. Pk Sloan Primary Care Provider Dr. Pk Sloan Referring Provider [phone] PK SLOAN DO Primary Care Physician Dr. Trevor Munson Attending Provider Dr. Pk Sloan Primary Care Provider Dr. Pk Sloan Referring Provider [phone] BASHIR Valle NP Attending Provider Dr. Trevor Munson Attending Provider Dr. Luke Mensah Attending Provider Dr. Luke Mensah Referring Provider Dr. Pk Sloan Primary Care Provider Dr. Pk Sloan Primary Care Provider Dr. Shelia Chaudhary Attending Provider Dr. Clifton Martell Referring Provider Dr. Pk Sloan Referring Provider [phone] Bert MARTINEZ NP-C Zeny Attending Provider [phone] Wunning, Dr. Deepak Admit Provider Dr. Deepak Kulkarni Referring Provider Dr. Deepak Kulkarni Other Provider Dr. Kenny López Attending Provider Dr. Kenny López Other Provider Travis, Dr. Pulido Attending Provider Travis, Dr. Pulido Other Provider EDUARDA DUDLEY Attending Unavailable JULIANNE TINSLEY Admitting Unavailable VANDANA ANDREWS JR Consulting Unav ailable Dr. Pk Sloan Primary Care Provider Dr. Pk Sloan Referring Provider [phone] TAMIKO Chavarria Attending Provider Dr. Thomas [place] Emergency Provider [phone] Dr. Ashok Robles Admit Provider Dr. Ashok Robles Attending Provider Travis, Dr. Pulido Other Provider Dr. Stella Brooke Attending Provider Edwardo, Dr. Stella Mejia Other Provider Dr. Kenny López Attending Provider Dr. Kenny López Other Provider Pk Sloan DO Primary Care Provider [phone] PK SLOAN Primary Care Unavailable Dilcia COMPUTER APPLICATION DEVELOPER-REGISTER REPAIRER, Jaquan Hicks Primary Care Provider Unavailable Dr. Pk Sloan Primary Care Provider Dr. Pk Sloan Referring Provider [phone] TAMIKO Chavarria Attending Provider Dr. Thomas [place] Emergency Provider Dr. Ashok Robles Admit Provider Dr. Ashok Robles Attending Provider Dr. Ashok Robles Other Provider Dr. Stella Brooke Attending Provider Dr. Stella Brooke Other Provider Dr. Kenny López Attending Provider Dr. Kenny López Other Provider Bert ESCAPEMENT MATCHER, ESCAPEMENT MATCHER-C Zeny Attending Provider [phone] Dr. Pk Sloan Referring Provider [phone] Dr. Luke Mensah Attending Provider Dr. Juana Cortez Primary Care Provider [phone] Pk Sloan Primary Care Provider Dr. Sulaiman Roca Attending Provider Dr. Pk Sloan Referring Provider [phone] Dr. Luke Mensah Attending Provider Dr. Juana Cortez Primary Care Provider [phone] Pk Sloan Primary Care Provider Dr. Sulaiman Roca Attending Provider [phone] Gus Dickens Attending Provider Dr. Luke Mensah Other Provider Dr. Kaden Coffey Attending Provider [phone] NATHALIA CABRERA, PK Primary Care Unavailable ANTHONY PARIS MD Attending Unavailable NATHALIA CABRERA, PK Attending Unavailable PK SLOAN DO Primary Care Unavailable NATHALIA CABRERA, PK Attending Unavailable NATHALIA CABRERA, PK Primary Care Unavailable Jaquan Hyman Primary Care Provider Unavailable ANGELIC SALAZAR Attending Unavailable ANGELIC SALAZAR Referring Unavailable JAQUAN HA Primary Care Unavailable JAQUAN HA Primary Care Unavailable CHAMP WATERMAN Referring Unavailable ALBINA JETT Attending Unavailable JAQUAN HA Primary Care Unavailable CHAMP WATERMAN Referring Unavailable ALBINA JETT Attending Unavailable JAQUAN HA Primary Care Unavailable JOSE SIN Referring Unavailable DEEPAK LOPEZ Consulting Unavailable COLUMBA, CHAMP B Attending Unavailable JOSE SIN Admitting Unavailable ALPA SEQUEIRA Consulting Unavailable COLUMBA, CHAMP B Admitting Unavailable COLUMBA, CHAMP B Attending Unavailable NUBIA ANDRADE Consulting Unavailable LORSON, JAQUAN C Primary Care Unavailable LORSON, JAQUAN C Primary Care Unavailable ROSIE MURILLO Attending Unavailable JANUARY, JOSE K Referring Unavailable ALBINA JETT Attending Unavailable ALBINA JETT Referring Unavailable LORSON, JAQUAN C Primary Care Unavailable LORSON, JAQUAN C Primary Care Unavailable COLUMBA, CHAMP B Referring Unavailable MAGDALENA PEREZ Attending Unavailable COLUMBA, CHAMP B Referring Unavailable ALBINA JETT Attending Unavailable LORSON, JAQUAN C Primary Care Unavailable Lorson COMPUTER APPLICATION DEVELOPER-MUKESH, Jaquan C Primary Care Provider Unavailable Dr. Pk Sloan DO Primary Care Provider [phone] Bert ESCAPEMENT MATCHER-CZney Attending Provider Bert ESCAPEMENT MATCHER-CZeny Referring Provider Dr. Bill Tello MD Attending Provider [phone] Dr. Bill Tello MD Emergency Provider [phone] Dr. Pk Sloan DO Referring Provider Dr. Pk Sloan DO Attending Provider Melina Walters Attending Provider [phone] Janes ESCAPEMENT MATCHER-C, Bri Gipson Attending Provider [phone] Melina Walters Referring Provider [phone] Janes ESCAPEMENT MATCHER-C, Bri Gipson Other Provider Dr. Pk Sloan DO Primary Care Provider [phone] Bert ESCAPEMENT MATCHER-CZeny Attending Provider Bert ESCAPEMENT MATCHER-CZeny Referring Provider Dr. Pk Sloan DO Referring Provider Lashay Ivy Attending Provider [phone] Roland DEAN, Dr. Cortés Attending Provider Dr. Moo Watkins MD Referring Provider Roland DEAN, Dr. Cortés Emergency Provider Cayla DPM, Dr. Sotelo Attending Provider Cayla DPM, Dr. Sotelo Referring Provider [phone] JORDYN ESCAPEMENT MATCHER-C, KASIA Primary Care Provider Crissy DEAN, Dr. Cormier Attending Provider Rehan MORRISON, Melina Attending Provider [phone] Nathalia CABRERA, Dr. Page Primary Care Provider [phone] Nathalia CABRERA, Dr. Page Referring Provider Rehan MORRISON, Melina Referring Provider Nathalia, Pk Primary Care Unavailable Moo Watkins Referring Unavailable Moo Watkins Attending Unavailable Noel, Zeny Referring Unavailable Noel, Zeny Attending Unavailable Nathalia, Pk Primary Care Unavailable Nathalia, Pk Primary Care Unavailable Nathalia, Pk Attending Unavailable Nathalia, Pk Primary Care Unavailable Nathalia, Pk Referring Unavailable Van, Melina Attending Unavailable Nathalia, Pk Primary Care Unavailable Nathalia, Pk Referring Unavailable Noel, Zeny Attending Unavailable JORDYN, KASIA Referring Unavailable JORDYN, KASIA Primary Care Unavailable Van, Melina Attending Unavailable JORDYN, KASIA Primary Care Unavailable [place] Attending Unavailable Van, Melina Referring Unavailable Wunning, Deepak Referring Unavailable JORDYN, KASIA Primary Care Unavailable [place] Attending Unavailable JORDYN, KASIA Primary Care Unavailable Van, Melina Referring Unavailable Van, Melina Attending Unavailable Nathalia, Pk Primary Care Unavailable Van, Melina Referring Unavailable Janes ESCAPEMENT MATCHER, Bri Gipson Attending UnavailDeepak Castellanos Attending Unavailable JORDYN, KASIA Primary Care Unavailable Wunning, Deepak Referring Unavailable JORDYN, KASIA Primary Care Unavailable Noel, Zeny Referring Unavailable Noel, Zeny Attending Unavailable JORDYN, KASIA Primary Care Unavailable Nathalia, Pk Referring Unavailable Van, Melina Attending Unavailable Nathalia, Pk Primary Care Unavailable Van, Melina Referring Unavailable Van, Melina Attending Unavailable Nathalia, Pk Primary Care Unavailable Noel, Zeny Attending Unavailable Noel, Zeny Referring Unavailable Nathalia, Pk Primary Care Unavailable Janes ESCAPEMENT MATCHER, Bri iGpson Attending Unavailorestes Van, Melina Referring Unavailable Nathalia, Pk Primary Care Unavailable Zeny Noel Attending Unavailable Bert, Zeny Referring Unavailable Bill Tello Attending Unavailable Nathalia, Pk Primary Care Unavailable Nathalia, Pk Primary Care Unavailable Nathalia, Pk Referring Unavailable Lashay Ivy Attending Unavail able Nathalia, Pk Primary Care Unavailable Nathalia, Pk Referring Unavailable Bert, Zeny Attending Unavailable Nathalia, Pk Referring Unavailable Noel, Zeny Attending Unavailable Nathalia, Pk Primary Care Unavailable Nathalia, Pk Primary Care Unavailable Janes ESCAPEMENT MATCHER, Bri Gipson Attending Unavailorestes Van, Melina Referring Unavailable Jnaes ESCAPEMENT MATCHER, Bri Gipson Consulting Unavailorestes gipson Allergies Allergy Classification Reported Allergen(s) Allergy Type Date of Onset Reaction(s) Facility (2 sources) enoxaparin Drug Allergy 7 itching [facility] Work Phone: (1 source) heparin Drug Allergy 6 rash [facility] Work Phone: (2 sources) varenicline Drug Allergy 7 made me go crazy, put me in the [facility] Work Phone: (20 sources) Enoxaparin; Translations: [enoxaparin] Drug Allergy 7 Itching [facility] (20 sources) varenicline; Translations: [varenicline] Drug Allergy 7 Other (See Comments) [facility] Comment on above: MADE ME GO CRAZY, P UT ME IN THE [facility] (20 sources) Azithromycin; Translations: [AZITHROMYCIN] Drug Allergy 9 Hives [facility] (20 sources) Enoxaparin; Translations: [enoxaparin sodium] Drug Allergy 1 Itching [facility] (20 sources) heparin; Translations: [HEPARIN] Drug Allergy 6 Itching, Rash [facility] (9 sources) arthromycin; Translations: [arthromycin] Allergy to substance 3 Itching [facility] (1 source) heparin Drug Allergy 5 [facility] Repository (1 source) varenicline Drug Allergy 5 [facility] Repository Medications Current Medications Medication Drug Class(es) Dates Sig (Normalized) Sig (Original) 8 hr acetaminophen 650 mg extended release oral tablet (20 sources) Start: 07-03-2024 take 2 tablets by mouth every eight hours as needed for pain Acetaminophen 650 mg tablet extended release Active 1300 mg PO Q8H as needed for PAIN July 03, 2024 4:04pm Start: 01-30-2024 End: 01-30-2024 take 1 dose by mouth once 650 mg, Oral, ONCE, 1 dose, On Tue01/30/24 at 1500, Pre-op Start: 12-31-2023 End: 02-06-2024 650 mg, Oral, EVERY 6 HOURS, 360 doses, First dose on Tue01/30/24 at 2200, Last dose on Tue04/29/24 at 2030 Start: 12-18-2023 End: 03-07-2024 take 2 tablets by mouth every six hours as needed for pain acetaminophen (TYLENOL) 325 MG tablet Take 2 Tablets (650 mg) by mouth every 6 hours as needed for Pain for up to 30 days 240 Tablet 02/06/2024 03/07/2024 Active Start: 12-18-2023 End: 12-18-2023 Start: 12-17-2023 End: 12-17-2023 Start: 05-26-2023 End: 07-03-2024 take 2 tablets by mouth once daily Acetaminophen 650 mg tablet extended release Discontinued 1300 mg PO DAILY May 26, 2023 10:55am July 03, 2024 4:10pm PAIN Start: 02-28-2023 acetaminophen 650 mg oral tablet, extended release Dose : 1,300 mg = 2 tab(s), Oral, TID, PRN as needed for pain, # 200 tab(s), 5 Refill(s), Pharmacy: [facility], 160, cm, 02/01/23 14:08:00 EDT, Height, kg, 02/01/23 14:08:00 EDT, Dosing Weight Start Date: 02/28/23 Status: Ordered Start: 02-04-2023 End: 12-31-2023 take 1300 mg by mouth once daily Acetaminophen Active 1300 MG PO DAILY May 26, 2023 10:55am Start: 02-04-2023 Acetaminophen (TYLENOL) 650 MG TBCR Start: 02-04-2023 acetaminophen 650 mg CR tablet Start: 08-18-2022 acetaminophen 650 mg oral tablet, extended release Dose : 1,300 mg = 2 tab(s), Oral, TID, PRN as needed for pain, # 200 tab(s), 5 Refill(s), [place] [facility] [place], 158, cm, 07/14/22 9:56:00 EDT, Height Start Date: 08/18/22 Status: Ordered Start: 05-31-2022 End: 05-26-2023 take 2 tablets by mouth every eight hours Acetaminophen 650 mg Tablet Extended Release Discontinued 1300 mg PO Q8H May 31, 2022 1:00am May 26, 2023 11:02am PAIN Start: 05-31-2022 End: 05-26-2023 take 1300 mg by mouth every eight hours Acetaminophen Discontinued 1300 MG PO Q8H May 31, 2022 1:00am May 26, 2023 11:02am Start: 12-30-2021 End: 06-28-2022 acetaminophen 650 mg oral ta blet, extended release Dose : 1,300 mg = 2 tab(s), Oral, q8h, PRN as needed for pain, X 30 day(s), # 200 tab(s), 5 Refill(s), 06/28/22 15:23:00 EDT, Pharmacy: [facility], Primary osteoarthritis of right hip, 158, cm, 12/30/21 14:49:00 EDT, Height Start Date: 12/30/21 Stop Date: 06/28/22 Status: Ordered ACETAMINOPHEN EX TRA STRENGTH 500 MG TABS as needed ACETAMINOPHEN [id number] Samira Camara ESCAPEMENT MATCHER albuterol 0.833 mg/ml / ipratropium bromide 0.167 mg/ml inhalation solution (20 sources) Anticholinergic, beta2-Adrenergic Agonist Start: 11-25-2023 take 1 mL by inhalation every four hours as needed for wheezing Ipratropium-Albuterol 0.5 mg-3 mg(2.5 mg base)/3 mL solution for nebulization Active 3 mL INHALATION EVERY 4 HOURS NEEDED as needed for SOB &/OR WHEEZING 180 6 November 25, 2023 12:00am Start: 09-12-2014 End: 12-06-2014 take 1 mL by inhalation every six hours Ipratropium-Albuterol 3 ML Ampul.Neb Discontinued 3 mL INHALATION EVERY 6 HOURS FOR 7 DAYS 1 September 12, 2014 12:00am December 06, 2014 3:18pm Start: 09-12-2014 End: 12-06-2014 take 1 mL by inhalation every six hours Ipratropium-Albuterol Discontinued 3 ML INHALATION EVERY 6 HOURS FOR 7 DAYS September 12, 2014 12:00am December 06, 2014 3:18pm albuterol MDI (90 mcg/inh) CFC free inhalation aerosol (10 sources) Start: 03-31-2022 take 1 puff(s) by inhalation every four hours as needed for wheezing albuterol MDI (90 mcg/inh) CFC free inhalation aerosol 1 puff(s), Inhalation, q4h, PRN as needed for wheezing, # 3 EA, 3 Refill(s), Pharmacy: [facility], Acute bacterial bronchitis, 157, cm, 03/31/22 14:29:00 EST, Height, kg, 03/31/22 14:29:00 EST, Dosing Weight Start Date: 03/31/22 Status: Ordered Start: 05-22-2021 take 1 puff(s) by in halation every four hours as needed for wheezing albuterol MDI (90 mcg/inh) CFC free inhalation aerosol 1 puff(s), Inhalation, q4h, PRN as needed for wheezing, # 3 EA, 3 Refill(s), Pharmacy: [facility] [place] - [id number], Acute bacterial bronchitis, 158, cm, 04/01/21 8:52:00 EST, Height, kg, 04/01/21 8:52:00 EST, Dosing Weight Start Date: 05/22/21 Status: Ordered Start: 12-12-2020 take 1 puff(s) by in halation every four hours as needed for wheezing albuterol MDI (90 mcg/inh) CFC free inhalation aerosol 1 puff(s), Inhalation, q4h, PRN as needed for wheezing, # 18 gram(s), 5 Refill(s), Pharmacy: [facility] [id number], Acute bacterial bronchitis, 157, cm, 09/17/20 11:01:00 EDT, Height, kg, 09/17/20 11:01:00 EDT, Dosing Weight Start Date: 12/12/20 Status: Ordered Alcohol Swabs (10 sources) Start: 04-26-2022 Alcohol Swabs See Instructions, Use 1 swab twice daily to inject insulin., # 200 EA, 3 Refill(s), Pharmacy: [facility], Diabetes mellitus, 157, cm, 03/31/22 14:29:00 EST, Height, 115.9, kg, 03/31/22 14:29:00 EST, Dosing Weight Start Date: 04/26/22 Status: Ordered Start: 04-01-2021 Alcohol Swabs See Instructions, Use 1 swab twice daily to inject insulin., # 200 EA, 3 Refill(s), Pharmacy: [place] [id number], Diabetes mellitus, 158, cm, 04/01/21 8:52:00 EST, Height, 114.3, kg, 04/01/21 8:52:00 EST, Dosing Weight Start Date: 04/01/21 Status: Ordered ALPRAZolam 1 mg oral tablet (20 sources) Benzodiazepine Start: 05-09-2024 End: 07-03-2024 take 1 tablet by mouth three times daily as needed for anxiety Alprazolam 1 mg tablet Active 1 mg PO THREE TIMES A DAY as needed for anxiety July 03, 2024 4:06pm Start: 01-30-2024 End: 02-06-2024 take 1 tablet by mouth three times daily 1 mg, Oral, 3 TIMES DAILY, 270 doses, First dose on 01/30/24 at 2300, Last dose on 04/29/24 at 1700, OP SIG:Take 1 Tablet (1 mg) by mouth 3 times daily Start: 01-06-2024 take 1 tablet by lyndsay th three times daily ALPRAZolam (XANAX) 1 MG tablet Take 1 Tablet (1 mg) by mouth 3 times daily 01/06/2024 Active Start: 12-31-2023 End: 01-03-2024 Start: 12-17-2023 End: 12-31-2023 Start: 05-26-2023 take 1 mg by mouth at bedtime Alprazolam Active MG PO BEDTIME May 26, 2023 1:00am Start: 02-16-2023 End: 07-03-2024 take 1 tablet by mouth every twenty-four hours at bedtime Alprazolam 3 mg tablet extended release 24 hr Discontinued mg PO BEDTIME May 26, 2023 1:00am July 03, 2024 4:06pm Start: 01-04-2023 ALPRAZolam ER (XANAX XR) 2 mg 24 hr tablet Start: 12-15-2013 End: 05-26-2023 take 1 tablet by mouth twice daily as needed for anxiety Alprazolam 0.5 MG tablet Discontinued 0.5 mg PO TWICE DAILY NEEDED as needed for Anxiety December 15, 2013 12:00am May 26, 2023 10:57am take 1 tablet by lyndsay th three times daily ALPRAZOLAM 0.5 MG TABS One tablet by mouth three times daily ALPRAZOLAM [id number] Zeny Neol CNP amitriptyline hydrochloride 25 mg oral tablet (12 sources) Tricyclic Antidepressant amitrip tyline (ELAVIL) 25 MG tablet Take by mouth Active take 2 tablets by mouth at bedti me AMITRIPTYLINE HCL 25 MG TABS Two tablets by mouth at bedtime AMITRIPTYLINE HCL [id number] Radha A Shear Basaglar 100 unit(s)/mL 3 mL KwikPen (1 source) Start: 03-18-2021 End: 03-13-2022 inject 1 dose by subcutaneous injection once daily Basaglar 100 unit(s)/mL 3 mL KwikPen Dose : 70 unit(s) =, Subcutaneous, Daily, # 63 mL, 3 Refill(s), Pharmacy: [facility] [place] - [id number], Diabetes mellitus, 158, cm, 03/11/21 15:53:00 EST, Height, kg, 03/11/21 15:53:00 EST, Dosing Weight Start Date: 03/18/21 Stop Date: 03/13/22 Status: Ordered Betamethasone (2 sources) Corticosteroid Start: 04-01-2021 End: 04-29-2021 betamethasone dipropionate 0.05% topical cream Apply 1 jing, Topical, BID, X 14 day(s), # 50 gram(s), 1 Refill(s), Pharmacy: [place] [id number], Cream, 158, cm, 04/01/21 8:52:00 EST, Height, 114.3, kg, 04/01/21 8:52:00 EST, Dosing Weight Start Date: 04/01/21 Stop Date: 04/29/21 Status: Ordered Start: 06-18-2020 betamethasone dipropionate 0.05% topical cream Apply 1 jing, Topical, qDay, PRN Rash, # 50 gram(s), 3 Refill(s), Pharmacy: [place] [id number], Cream, 157, cm, 06/18/20 10:41:00 EDT, Height, 120.6, kg, 06/18/20 10:41:00 EDT, Dosing Weight Start Date: 06/18/20 Status: Ordered Blood Glucose Test Machine (20 sources) Start: 09-01-2023 Blood Glucose Test Machine See Instructions, Dispense 1 glucometer, use as directed to test blood sugar once daily pt prefence covered by insurnace, # 1 EA, 0 Refill(s), Pharmacy: [facility] [place], Diabetes mellitus, 169, cm, 08/02/23 12:52:00 EDT, Height, 119.7, kg, 08/02/23 12:52:00 EDT, Dosing Weight Start Date: 09/01/23 Status: Ordered Start: 04-09-2020 Blood Glucose Test Machine See Instructions, Dispense 1 glucometer, use as directed to test blood sugar once daily, # 1 EA, 0 Refill(s), Pharmacy: [place] [id number], Diabetes mellitus, 157, cm, 12/18/19 9:11:00 EDT, Height, 120.8, kg, 12/18/19 9:11:00 EDT, Dosing Weight Start Date: 04/09/20 Status: Ordered Start: 04-09-2020 Blood Glucose Test Machine See Instructions, Dispense 1 glucometer, use as directed to test blood sugar once daily, # 1 EA, 0 Refill(s), Pharmacy: [place] [id number], Diabetes mellitus, 157, cm, 12/18/19 9:11:00 EDT, Height, 120.8, kg, 12/18/19 9:11:00 EDT, Dosi... Start Date: 04/09/20 Status: Ordered Start: 11-15-2018 Blood Glucose Test Machine See Instructions, Use as directed daily, # 1 EA, 0 Refill(s), Pharmacy: [facility] [id number], Diabetes mellitus Start Date: 11/15/18 Status: Ordered buPROPion 150 mg/12 hours (SR) oral tablet, extended release (9 sources) Start: 06-17-2023 take 1 tablet by mouth every hour, then take 1 tablet by mouth twice daily buPROPion 150 mg/12 hours (SR) oral tablet, extended release Dose : 150 mg = 1 tab(s), Oral, BID, # 180 tab(s), 3 Refill(s), Pharmacy: [facility], Anxiety depression, 61.8, cm, 05/03/23 13:29:00 EST, Height, kg, 05/03/23 13:29:00 EST, Dosing Weight Start Date: 06/17/23 Status: Ordered Start: 07-14-2022 take 1 tablet by lyndsay th every hour, then take 1 tablet by mouth twice daily buPROPion 150 mg/12 hours (SR) oral tablet, extended release Dose : 150 mg = 1 tab(s), Oral, BID, # 180 tab(s), 3 Refill(s), Anxiety depression, 158, cm, 07/14/22 9:56:00 EDT, Height, kg, 07/14/22 9:56:00 EDT, Dosing Weight Start Date: 07/14/22 Status: Ordered Start: 10-07-2021 take 1 tablet by lyndsay th every hour, then take 1 tablet by mouth twice daily buPROPion 150 mg/12 hours (SR) oral tablet, extended release Dose : 150 mg = 1 tab(s), Oral, BID, # 180 tab(s), 3 Refill(s), Pharmacy: [facility], Anxiety depression, 158, cm, 10/07/21 9:38:00 EDT, Height, kg, 10/07/21 9:38:00 EDT, Dosing Weight Start Date: 10/07/21 Status: Ordered Start: 07-01-2021 take 1 tablet by lyndsay th every hour, then take 1 tablet by mouth twice daily buPROPion 150 mg/12 hours (SR) oral tablet, extended release Dose : 150 mg = 1 tab(s), Oral, BID, # 180 tab(s), 1 Refill(s), Pharmacy: [facility], Anxiety depression, 158, cm, 07/01/21 8:42:00 EDT, Height Start Date: 07/01/21 Status: Ordered dapagliflozin 10 mg oral tablet (20 sources) Sodium-Glucose Cotransporter 2 Inhibitor Start: 05-28-2024 End: 07-03-2024 take 1 tablet by mouth once daily Dapagliflozin Propanediol (Farxiga) 10 mg tablet Active 10 mg PO DAILY July 03, 2024 4:02pm Start: 02-01-2023 FARXIGA 10 MG TABS 02/01/2023 Active Start: 10-07-2021 End: 07-03-2024 take 1 tablet by mouth once daily Dapagliflozin Propanediol (Farxiga) 5 mg tablet Discontinued 5 mg PO DAILY November 27, 2021 12:00am July 03, 2024 4:02pm diabetes Start: 11-07-2020 Farxiga 5 mg o ral tablet Dose : 5 mg = 1 tab(s), Oral, qDay, # 90 tab(s), 3 Refill(s), Pharmacy: [facility] [place] - [id number], Diabetes mellitus, 157, cm, 09/17/20 11:01:00 EDT, Height, kg, 09/17/20 11:01:00 EDT, Dosing Weight Start Date: 11/07/20 Status: Ordered diclofenac sodium 75 mg delayed release oral tablet (20 sources) Nonsteroidal Anti-inflammatory Drug Start: 01-06-2024 take 1 tablet by mouth once daily diclofenac sodium (VOLTAREN) 75 MG EC tablet Take 1 Tablet (75 mg) by mouth daily 01/06/2024 Active Start: 12-18-2023 End: 12-19-2023 Start: 02-04-2023 End: 12-31-2023 Start: 09-23-2021 End: 12-17-2023 take 1 tablet by mouth twice daily Diclofenac Sodium 75 mg tablet,delayed release (DR/EC) Active 75 mg PO TWICE A DAY November 27, 2021 12:00am Start: 08-05-2021 diclofenac sod ium 75 mg oral delayed release tablet Dose : 75 mg = 1 tab(s), Oral, BID, with food, # 60 tab(s), 0 Refill(s), Pharmacy: [facility] [place], Right shoulder pain, 158, cm, 07/01/21 8:42:00 EDT, Height, kg, 07/01/21 8:31:00 EDT, Dosing Weight Start Date: 08/05/21 Status: Ordered Start: 07-01-2021 diclofenac sod ium 75 mg oral delayed release tablet Dose : 75 mg = 1 tab(s), Oral, BID, with food, # 60 tab(s), 1 Refill(s), Pharmacy: [facility], Right shoulder pain, 158, cm, 07/01/21 8:42:00 EDT, Height, kg, 07/01/21 8:31:00 EDT, Dosing Weight Start Date: 07/01/21 Status: Ordered diclofenac sodium 75 mg oral delayed release tablet (1 source) Start: 12-31-2020 diclofenac sodium 75 mg oral delayed release tablet Dose : 75 mg = 1 tab(s), Oral, BID, with food, # 60 tab(s), 0 Refill(s), Pharmacy: [facility] - [id number], Right shoulder pain, 158, cm, 12/31/20 10:55:00 EDT, Height, kg, 12/31/20 10:55:00 EDT, Dosing Weight Start Date: 12/31/20 Status: Ordered diphenhydrAMINE hydrochloride 25 mg oral capsule (13 sources) Histamine-1 Receptor Antagonist Start: 02-06-2024 End: 02-27-2024 take 1 capsule by mouth every eight hours as needed diphenhydrAMINE (BENADRYL) 25 MG capsule Take 1 Capsule (25 mg) by mouth every 8 hours as needed for Itching for up to 14 days 24 Capsule 02/13/2024 02/27/2024 Active Start: 02-06-2024 End: 02-06-2024 take 1 dose by mouth once 25 mg, Oral, ONCE, 1 dose, O n 02/06/24 at 0930, Given with Lovenox Start: 01-31-2024 End: 02-05-2024 25 mg, Oral, 2 TIMES DAILY, 12 doses, First dose on Tu01/31/24 at 0900, Last dose on 02/05/24 at 2100, Given with Lovenox Start: 01-20-2024 End: 02-06-2024 take 1 capsule by mouth every twelve hours diphenhydrAMINE (BENADRYL) 25 MG capsule Take 1 Capsule (25 mg) by mouth every 12 hours 10 Capsule 01/20/2024 02/06/2024 Discontinued Start: 12-22-2023 End: 12-29-2023 Start: 12-20-2023 End: 12-20-2023 DME MISCellaneous (10 sources) Start: 11-15-2018 DME MISCellane ous See Instructions, Dispense reusable incontinence bed pads, #6 pads, use as directed at bedtime, # 6 EA, 1 Refill(s), Pharmacy: [facility] [id number], Urinary incontinence in female Osteoarthritis of right hip Start Date: 11/15/18 Status: Ordered docusate sodium 50 mg / sennosides, fpc 8.6 mg oral tablet (20 sources) Start: 01-31-2024 End: 03-08-2024 take 8.6-50 mg by mouth once daily senna-docusate (SENNAS) 8.6-50 MG tablet Take 1 Tablet (8.6 mg) by mouth daily for 30 days 30 Tablet 02/07/2024 03/08/2024 Active Start: 01-01-2024 End: 12-31-2023 Start: 12-27-2023 End: 12-31-2023 Start: 12-18-2023 End: 12-26-2023 Start: 06-08-2022 End: 05-26-2023 Sennosides-Docusate Sodium ( Stool Softener-Stimulant Laxat) 8.6-50 mg Tablet Discontinued 2 {tbl} PO TWICE A DAY 0 0 June 08, 2022 1:00am May 26, 2023 11:00am laxative doxycycline hyclate 100 mg oral tablet (20 sources) Tetracycline-class Drug Start: 07-21-2024 take 1 tablet by mouth twice daily Doxycycline Hyclate 100 mg tablet Active 100 mg PO TWICE A DAY July 21, 2024 12:00am Start: 05-24-2024 End: 06-07-2024 take 1 capsule by mouth twice daily Doxycycline Hyclate 100 mg capsule Discontinued 100 mg PO TWICE A DAY 28 14 0 May 24, 2024 1:00am June 06, 2024 1:00am June 07, 2024 1:14am Start: 09-22-2018 End: 10-18-2018 take 1 tablet by mouth twice daily Doxycycline Hyclate 100 mg tablet Discontinued 100 mg PO TWICE A DAY 20 0 September 22, 2018 12:00am October 18, 2018 10:33am Start: 12-15-2017 End: 02-21-2018 take 1 capsule by mouth twice daily Doxycycline Monohydrate 100 MG capsule Discontinued 100 mg PO TWICE A DAY 14 0 December 15, 2017 12:00am February 21, 2018 2:07pm Start: 01-25-2013 End: 05-05-2013 take 1 capsule by mouth twice daily Doxycycline Hyclate 100 MG capsule Discontinued 100 mg PO TWICE A DAY 20 0 January 25, 2013 12:00am May 05, 2013 7:00pm fexofenadine hydrochloride 1 80 mg oral tablet (14 sources) Histamine-1 Receptor Antagonist Start: 07-14-2022 Start: 07-14-2022 fexofenadine ( RAF) 180 MG tablet Take 1 Tablet (180 mg) by mouth 07/14/2022 Active fluticasone propionate 0.05 mg/actuat metered dose nasal spray (20 sources) Corticosteroid Start: 07-05-2024 Fluticasone Pr opionate 50 mcg/actuation spray,suspension Active 1 NMA INTRANASAL DAILY July 05, 2024 12:00am each nostril Start: 01-31-2024 End: 02-06-2024 2 [place], Each Nare, 2 TIMES DAILY, 180 doses, First dose on Tue01/31/24 at 0900, Last dose on 04/29/24 at 2100, OP SIG:Administer in nose Start: 05-26-2023 End: 11-25-2023 Fluticasone Propionate 50 mcg/actuation spray,suspension Discontinued 2 NMA INTRANASAL TWICE A DAY May 26, 2023 1:00am November 25, 2023 10:45am Start: 05-26-2023 Fluticasone Pr opionate Active 2 SPRAY INTRANASAL TWICE A DAY May 26, 2023 1:00am Start: 04-25-2023 take 1 dose nasal ro iqugmiut twice daily fluticasone proprionate NASAL 50 mcg/ spray Dose = 2 spray(s), Nostril, each, BID, # 3 EA, 3 Refill(s), [place] [facility] [place], [place], 02/01/23 14:08:00 EDT, Height, kg, 02/01/23 14:08:00 EDT, Dosing Weight Start Date: 04/25/23 Status: Ordered Start: 01-30-2023 fluticasone (F LONASE) 50 mcg/actuation nasal spray Start: 03-31-2022 take 1 dose nasal ro iqugmiut twice daily fluticasone proprionate NASAL 50 mcg/ spray Dose = 2 spray(s), Nostril, each, BID, # 3 EA, 3 Refill(s), Pharmacy: [facility] [place], [place], cm, 03/31/22 14:29:00 EST, Height Start Date: 03/31/22 Status: Ordered Start: 03-31-2022 fluticasone (F LONASE) 50 MCG/ACT nasal spray Administer in nose 03/31/2022 Active Start: 03-31-2022 fluticasone-salmeterol 232 mcg-14 mcg/inh inhalation powder (1 source) Start: 06-18-2020 take 1 puff(s) by inhalation twice daily fluticasone-salmeterol 232 mcg-14 mcg/inh inhalation powder 1 puff, Inhalation, BID, # 1 EA, 11 Refill(s), Pharmacy: [facility] - [id number], 157, cm, 06/18/20 10:41:00 EDT, Height, kg, 06/18/20 10:41:00 EDT, Dosing Weight Start Date: 06/18/20 Status: Ordered Zdvormcajby-Rmqjnrvgr-Qgmcn t (TRELEGY ELLIPTA) 200-62.5-25 MCG/ACT AEPB (6 sources) Start: 02-06-2024 End: 03-07-2024 Lxfywyhufcs-Stybmmiop-Jpvh nt (TRELEGY ELLIPTA) 200-62.5-25 MCG/ACT AEPB Inhale 1 Inhalation into the lungs daily for 30 days 28 Each 02/06/2024 03/07/2024 Active Asuiryxljtk-Wiojnqjaz-Sxkcd ter (4 sources) Start: 11-25-2023 Vvqafxspujh-Cwaphmroz-Vvry nter (Trelegy Ellipta) 200-62.5-25 mcg blister with device Active 1 NMA INHALATION DAILY 3 November 25, 2023 12:00am Start: 11-25-2023 Fluticasone-Um eclidin-Vilanter (Trelegy Ellipta) 200-62.5-25 mcg blister with device Active 1 NMA INHALATION DAILY November 25, 2023 12:00am Incruse Ellipta 62.5 mcg/inh inhalation powder (12 sources) Start: 02-01-2023 take 1 dose by inhalation every twenty-four hours Incruse Ellipta 62.5 mcg/inh inhalation powder Dose = 1 EA, Inhalation, q24h, # 30 EA, 0 Refill(s) Start Date: 02/01/23 Status: Ordered Start: 11-14-2018 Incruse Ellipt a 62.5 mcg/inh inhalation powder 0 Refill(s) Start Date: 11/14/18 Status: Ordered insulin glargine 100 unt/ml injectable solution (20 sources) Insulin Analog Start: 12-18-2023 End: 01-10-2024 Start: 05-02-2023 End: 04-26-2024 inject 1 dose by subcutaneous injection twice daily Basaglar 100 unit(s)/mL 3 mL KwikPen Dose : 60 unit(s) =, Subcutaneous, BID, # 108 mL, 3 Refill(s), Pharmacy: [facility], Diabetes mellitus, 157, cm, 04/29/23 15:07:00 EST, Height, kg, 04/29/23 15:07:00 EST, Dosing Weight Start Date: 05/02/23 Stop Date: 04/26/24 Status: Ordered Start: 02-17-2023 LANTUS SOLOSTA R U-100 INSULIN 100 unit/mL (3 mL) Start: 11-27-2021 Insulin Glargi ne (Lantus Solostar U-100 Insulin) 100 unit/mL (3 mL) insulin pen Active 60 U SC TWICE A DAY November 27, 2021 12:00am diabetes Start: 11-27-2021 Insulin Glargi ne (Lantus Solostar U-100 Insulin) 100 unit/mL (3 mL) insulin pen Active 54 UNIT SC TWICE A DAY November 26, 2021 11:00pm Start: 05-25-2021 End: 04-01-2023 Insulin Glargine (BASAGLAR) 100 UNIT/ML SOPN Inject into the skin 0 05/25/2021 04/01/2023 Active Start: 05-25-2021 End: 05-20-2022 inject 1 dose by subcutaneous injection twice daily Basaglar 100 unit(s)/mL 3 mL KwikPen Dose : 50 unit(s) =, Subcutaneous, BID, # 90 mL, 3 Refill(s), Pharmacy: [facility] [id number], Diabetes mellitus, 158, cm, 04/01/21 8:52:00 EST, Height, kg, 04/01/21 8:52:00 EST, Dosing Weight Start Date: 05/25/21 Stop Date: 05/20/22 Status: Ordered isopropyl alcohol 0.7 ml/ml medicated pad (11 sources) Start: 02-14-2023 Alcohol Swabs (ALCOHOL PADS) 02/14/2023 Active ammonium lactate 120 mg/ml topical lotion (7 sources) Start: 05-30-2024 End: 07-03-2024 Ammonium Lactate 12 % lotion Active 1 NMA TOPICAL ONCE as needed July 03, 2024 4:06pm metFORMIN hydrochloride 1000 mg oral tablet (20 sources) Biguanide Start: 01-31-2024 End: 02-06-2024 take 1 tablet by mouth twice daily 1,000 mg, Oral, 2 TIMES DAILY, 180 doses, First dose on 01/31/24 at 0900, Last dose on 04/29/24 at 2100, OP SIG:Take 1 Tablet (1,000 mg) by mouth 2 times daily for 30 days Start: 12-31-2023 End: 03-07-2024 take 1 tablet by mouth twice daily metFORMIN (GLUCOPHAGE) 1000 MG Take 1 Tablet (1,000 mg) by mouth 2 times daily for 30 days 60 Tablet 02/06/2024 03/07/2024 Active Start: 12-27-2023 End: 12-31-2023 Start: 04-22-2023 End: 04-16-2024 MetFORMIN (Eqv-Glucophage XR ) 500 mg oral tablet, EXTENDED RELEASE Dose : 2,000 mg = 4 tab(s), Oral, qDay, # 360 tab(s), 3 Refill(s), Pharmacy[place] [facility] [place], [place], cm, 02/01/23 14:08:00 EDT, Height, kg, 02/01/23 14:08:00 EDT, Dosing Weight Start Date: 04/22/23 Stop Date: 04/16/24 Status: Ordered Start: 02-04-2023 metFORMIN ER ( GLUCOPHAGE XR) 500 mg 24 hr tablet Start: 05-31-2022 End: 12-25-2023 Metformin 500 mg tablet exte nded release 24 hr Active 1000 mg PO TWICE A DAY May 31, 2022 1:00am diabetes Start: 05-31-2022 take 1000 mg by mout h twice daily Metformin Active 1000 MG PO TWICE A DAY May 31, 2022 1:00am Start: 11-27-2021 End: 04-29-2022 Metformin 500 mg tablet exte nded release 24 hr Discontinued 1000 mg PO TWICE A DAY November 27, 2021 12:00am April 29, 2022 2:52pm Start: 11-27-2021 End: 04-29-2022 take 1000 mg by mouth twice daily Metformin Discontinued 1000 MG PO TWICE A DAY November 27, 2021 12:00am April 29, 2022 2:52pm Start: 05-22-2021 End: 03-26-2023 MetFORMIN (Eqv-Glucophage XR ) 500 mg oral tablet, EXTENDED RELEASE Dose : 1,000 mg = 2 tab(s), Oral, BID, X 90 day(s), # 360 tab(s), 3 Refill(s), 03/26/23 15:16:00 EST, Pharmacy: [facility], 157, cm, 03/31/22 14:29:00 EST, Height, kg, 03/31/22 14:29:00 EST, Dosing Weight Start Date: 03/31/22 Stop Date: 03/26/23 Status: Ordered Start: 03-10-2017 End: 11-27-2021 take 2 tablets by mouth twice daily at mealtime Metformin 500 MG tablet Discontinued 1000 mg PO TWICE DAILY WITH MEALS March 10, 2017 1:12pm November 27, 2021 10:36am diabetes Start: 03-10-2017 End: 11-27-2021 take 1000 mg by mouth twice daily at mealtime Metformin Discontinued 1000 MG PO TWICE DAILY WITH MEALS March 10, 2017 1:12pm November 27, 2021 10:36am Start: 04-23-2015 End: 03-26-2023 metFORMIN (GLUCOPHAGE-XR) 50 0 MG ER tablet Take by mouth 0 04/23/2015 03/26/2023 Active Start: 04-23-2015 End: 03-10-2017 take 4 tablets by mouth once daily Metformin 500 MG tablet Discontinued 2000 mg PO DAILY April 23, 2015 1:00am March 10, 2017 1:15pm Start: 04-23-2015 End: 03-10-2017 take 2000 mg by mouth once daily Metformin Discontinue d 2000 MG PO DAILY April 23, 2015 1:00am March 10, 2017 1:15pm End: 12-01-2015 take 2 tablets by mouth once daily METFORMIN HCL 500 MG TABS Two tablets by mouth daily METFORMIN HCL [id number] Hazel Reza LPN take 1 tablet by lyndsay th once daily GLUMETZA 500 MG [id number] One tablet by mouth daily METFORMIN HCL [id number] Radha Guerrier miconazole nitrate 200 mg vaginal insert (1 source) Azole Antifungal Start: 04-29-2022 Miconazole Ni trate Active 200 MG VAGINAL AT BEDTIME 3 3 April 29, 2022 12:00am Multivitamin (Daily Multi-Vitamin) tablet (20 sources) Start: 12-26-2020 take 1 tablet by mouth once daily Multivitamin (Daily Multi-Vitamin) tablet Active 1 TABLET PO DAILY December 26, 2020 10:21am Start: 12-26-2020 End: 07-03-2024 Multivitamin (Daily Multi-Vi tamin) tablet Discontinued 1 {tbl} PO DAILY December 26, 2020 12:00am July 03, 2024 4:09pm vitamin Start: 12-26-2020 Multivitamin ( Daily Multi-Vitamin) tablet Active 1 {tbl} PO DAILY December 26, 2020 12:00am Start: 09-24-2021 take 1 tablet by lyndsay th once daily Multivitamin (Daily Multi-Vitamin) tablet Active 1 TABLET PO DAILY December 25, 2020 11:00pm Start: 12-26-2020 take 1 tablet by lyndsay th once daily Multivitamin (Daily Multi-Vitamin) tablet Active 1 TABLET PO DAILY December 26, 2020 12:00am naloxone hydrochloride 40 mg/ml nasal spray (6 sources) Opioid Antagonist Start: 02-06-2024 Naloxone HCl (NARCAN) 4 MG/0.1ML LIQD Administer 0.1 mL (4 mg) in nose as needed (Opioid reversal) for up to 2 doses May repeat every 2-3 minutes if needed, alternating nostrils, until medical assistance becomes available. 2 Each 02/06/2024 Active Nebulizer machine (4 sources) Start: 12-07-2023 Nebulizer mach ine Active 0 .ROUTE .MEDSUPPLY 1 0 December 07, 2023 12:00am As directed Start: 12-07-2023 Nebulizer mach ine Active 0 .ROUTE .MEDSUPPLY 1 December 07, 2023 12:00am As directed omega-3 acid ethyl esters (fpc) 1000 mg oral capsule (20 sources) Start: 04-22-2023 Lovaza 1000 mg oral capsule Dose : 2,000 mg = 2 cap(s), Oral, BID, # 360 cap(s), 3 Refill(s), Pharmacy: [facility], Mixed hyperlipidemia, 160, cm, 02/01/23 14:08:00 EDT, Height, kg, 02/01/23 14:08:00 EDT, Dosing Weight Start Date: 04/22/23 Status: Ordered Start: 02-04-2023 Wgclc-8-xkag E thyl Esters 1 g CAPS 02/04/2023 Active Start: 02-04-2023 Start: 04-26-2022 Lovaza 1000 mg oral capsule Dose : 2,000 mg = 2 cap(s), Oral, BID, # 360 cap(s), 3 Refill(s), Pharmacy: [facility], Mixed hyperlipidemia, 157, cm, 03/31/22 14:29:00 EST, Height, kg, 03/31/22 14:29:00 EST, Dosing Weight Start Date: 04/26/22 Status: Ordered Start: 11-27-2021 Wisner-3 Acid E thyl Esters 1 gram capsule Active 2 NMA PO TWICE A DAY November 27, 2021 12:00am supplement Start: 11-27-2021 take 2 capsules by m outh twice daily Wisner-3 Acid Ethyl Esters Active 2 CAP PO TWICE A DAY November 27, 2021 12:00am Start: 04-07-2021 Lovaza 1000 mg oral capsule Dose : 2,000 mg = 2 cap(s), Oral, BID, # 360 cap(s), 3 Refill(s), Pharmacy: [facility] [id number], Mixed hyperlipidemia, 158, cm, 04/01/21 8:52:00 EST, Height, kg, 04/01/21 8:52:00 EST, Dosing Weight Start Date: 04/07/21 Status: Ordered ONETOUCH IRIS ULTRA BL (10 sources) Start: 11-14-2018 ONETOUCH IRIS U LTRA BL ONETOUCH IRIS ULTRA BL, 0 Refill(s) Start Date: 11/14/18 Status: Ordered Pen needles 4 mm (10 sources) Start: 05-10-2023 Pen needles 4 mm See Instructions, Use 1 pen needle twice daily to inject insulin. Dx: E11.9, # 200 EA, 3 Refill(s), Pharmacy: [facility], Diabetes mellitus, 61.8, cm, 05/03/23 13:29:00 EST, Height, 116.4, kg, 05/03/23 13:29:00 EST, Dosing Weight Start Date: 05/10/23 Status: Ordered Start: 04-09-2022 Pen needles 4 mm See Instructions, Use 1 pen needle twice daily to inject insulin, # 200 EA, 3 Refill(s), Pharmacy: [facility], Diabetes mellitus, 157, cm, 03/31/22 14:29:00 EST, Height, 115.9, kg, 03/31/22 14:29:00 EST, Dosing Weight Start Date: 04/09/22 Status: Ordered Start: 04-01-2021 Pen needles 4 mm See Instructions, Use 1 pen needle twice daily to inject insulin, # 200 EA, 3 Refill(s), Pharmacy: [facility] [id number], Diabetes mellitus, 158, cm, 04/01/21 8:52:00 EST, Height, 114.3, kg, 04/01/21 8:52:00 EST, Dosing Weight Start Date: 04/01/21 Status: Ordered polyethylene glycol 3350 170 00 mg powder for oral solution (18 sources) Osmotic Laxative Start: 12-27-2023 End: 01-11-2024 Start: 12-22-2023 End: 12-26-2023 Start: 12-18-2023 End: 12-21-2023 Start: 06-08-2022 End: 05-26-2023 take 17 g by mouth once daily Polyethylene Glycol 3350 17 gram Powder In Packet Discontinued 17 g PO DAILY 0 0 June 08, 2022 1:00am May 26, 2023 10:59am pravastatin sodium 40 mg oral tablet (20 sources) HMG-CoA Reductase Inhibitor Start: 03-17-2014 take 1 tablet by mouth at bedtime Pravastatin 40 MG tablet Active 40 mg PO AT BEDTIME March 17, 2014 1:00am cholesterol predniSONE 20 mg oral tablet (20 sources) Corticosteroid Start: 07-22-2024 take 1 tablet by mouth once daily Prednisone 20 mg tablet Active 20 mg PO DAILY 5 5 0 July 22, 2024 12:00am Start: 11-25-2023 End: 05-09-2024 Prednisone 10 mg tablet Discontinued 10 mg PO daily 30 0 November 25, 2023 12:00am May 09, 2024 3:28pm take 4 tabs for three days, then 3 tabs for three days, then 2 tabs for three days, then 1 tab for 3 days Start: 07-11-2023 End: 11-25-2023 take 3 tablets by mouth once daily at mealtime Prednisone 20 mg tablet Discontinued 60 mg PO daily 15 July 11, 2023 12:00am November 25, 2023 10:50am administer with food or milk Start: 07-11-2023 take 60 mg by mouth once daily at mealtime Prednisone Active 60 MG PO daily July 11, 2023 12:00am administer with food or milk Start: 03-11-2023 End: 05-26-2023 take 3 tablets by mouth once daily Prednisone 20 mg tablet Discontinued 60 mg PO DAILY 15 0 March 11, 2023 1:00am May 26, 2023 10:59am Start: 03-11-2023 End: 05-26-2023 take 60 mg by mouth once daily Prednisone Discontinued 60 MG PO DAILY 15 Will 8th, 2023 1:00am May 26, 2023 10:59am Start: 01-31-2023 End: 05-26-2023 Prednisone 10 mg tablet Discontinued 10 mg PO DAILY 9 January 31, 2023 12:00am May 26, 2023 10:59am 2 tabs for three days, then 1 tab for 3 days Start: 01-24-2023 End: 01-31-2023 take 2 tablets by mouth once daily Prednisone 20 mg tablet Discontinued 40 mg PO DAILY 14 January 24, 2023 12:00am January 31, 2023 10:47am Start: 01-24-2023 End: 01-31-2023 take 40 mg by mouth once daily Prednisone Discontinued 40 MG PO DAILY January 24, 2023 12:00am January 31, 2023 10:47am Start: 03-09-2022 End: 04-29-2022 Prednisone 10 mg tablet Discontinued 10 mg PO daily 30 April 15, 2022 9:57am April 29, 2022 2:56pm take 4 tabs for three days, then 3 tabs for three days, then 2 tabs for three days, then 1 tab for 3 days Start: 10-20-2018 End: 01-23-2019 Prednisone 10 mg tablet Discontinued 10 mg PO daily 30 October 20, 2018 12:00am January 23, 2019 7:23am take 4 tabs for three days, then 3 tabs for three days, then 2 tabs for three days, then 1 tab for 3 days Start: 09-22-2018 End: 10-18-2018 Prednisone 10 mg tablet Discontinued 10 mg PO daily 30 September 22, 2018 12:00am October 18, 2018 10:33am take 4 tabs for three days, then 3 tabs for three days, then 2 tabs for three days, then 1 tab for 3 days Start: 02-21-2018 End: 06-14-2018 take 3 tablets by mouth once daily at mealtime Prednisone 20 mg tablet Discontinued 60 mg PO daily 15 February 21, 2018 1:00am June 14, 2018 2:11pm administer with food or milk Start: 02-21-2018 End: 06-14-2018 take 60 mg by mouth once daily at mealtime Prednisone Discontinued 60 MG PO daily February 21, 2018 1:00am June 14, 2018 2:11pm administer with food or milk Start: 01-24-2018 End: 02-21-2018 Prednisone 10 mg tablet Discontinued 10 mg PO daily 30 0 January 24, 2018 12:00am February 21, 2018 2:07pm take 4 tabs for three days, then 3 tabs for three days, then 2 tabs for three days, then 1 tab for 3 days Start: 12-15-2017 End: 02-21-2018 take 1 tablet by mouth twice daily at mealtime Prednisone 20 MG tablet Discontinued 20 mg PO TWICE A DAY December 15, 2017 12:00am February 21, 2018 2:07pm With food Start: 03-23-2017 End: 11-01-2017 Prednisone 10 mg tablet Discontinued 10 mg PO daily 30 0 July 21, 2017 12:00am November 01, 2017 10:52am take 4 tabs for three days, then 3 tabs for three days, then 2 tabs for three days, then 1 tab for 3 days Start: 05-19-2015 End: 03-10-2017 Prednisone 10 MG tablet Discontinued 10 mg PO DIRECTED 33 May 23, 2015 1:00am March 10, 2017 1:12pm Take 4 for 3 days then 3 for 3 days, then 2 for 3 days then 1 QD then 1 QOD Start: 01-23-2015 End: 02-04-2015 PREDNISONE 10 MG TABS Take 4 tabs by mouth for 3 days, then 3 tabs by mouth for 3 days, then 2 tabs by mourth for 3 days, then 1 tab by mouth for 3 days. PREDNISONE [id number] Luke Mensah Start: 01-25-2013 End: 05-05-2013 take 3 tablets by mouth once daily Prednisone 10 MG tablet Discontinued 30 mg PO DAILY@0800 5 0 January 25, 2013 12:00am May 05, 2013 6:56pm Start: 01-25-2013 End: 05-05-2013 take 30 mg by mouth once daily Prednisone Discontinued 30 MG PO DAILY@0800 5 January 25, 2013 12:00am May 05, 2013 6:56pm End: 01-01-2015 take 1 tablet by mouth once daily PREDNISONE 10 MG TABS One tablet by mouth daily PREDNISONE [id number] Negro Coffey MA rivaroxaban 20 mg oral table t (20 sources) Factor Xa Inhibitor Start: 12-30-2023 End: 12-31-2023 Start: 03-18-2014 End: 03-10-2017 Rivaroxaban 20 MG tablet Discontinued 20 mg PO DAILY 30 0 March 18, 2014 1:00am March 10, 2017 1:15pm Take 15 mg BID x 21 days and then transition to 20 mg once daily thereafter. DO not stop this medication unless discussed prior with your primary physician. Start: 01-24-2013 End: 03-07-2024 take 1 tablet by mouth once daily Rivaroxaban 20 MG tablet Active 20 mg PO DAILY March 10, 2017 1:11pm blood thinner take 1 tablet by lyndsay th twice daily XARELTO 15 MG TABS One tablet by mouth twice daily RIVAROXABAN [id number] Zeny Noel CNP sulfamethoxazole 800 mg / trimethoprim 160 mg oral tablet (20 sources) Dihydrofolate Reductase Inhibitor Antibacterial, Sulfonamide Antimicrobial Start: 07-21-2024 Sulfamethoxazole-Trimethopri m 800-160 mg tablet Active 1 {tbl} PO TWICE A DAY July 21, 2024 12:00am Start: 10-04-2022 End: 10-11-2022 take 1 tablet by mouth twice daily Bactrim DS 800 mg-160 mg oral tablet Dose = 1 tab(s), Oral, BID, X 7 day(s), # 14 tab(s), 0 Refill(s), 118.2 Start Date: 10/04/22 Stop Date: 10/11/22 Status: Ordered Start: 07-01-2021 End: 07-08-2021 take 1 tablet by mouth every twelve hours sulfamethoxazole-trimethoprim 800 mg-160 mg oral tablet Dose = 1 tab(s), Oral, q12h, X 7 day(s), # 14 tab(s), 0 Refill(s), [place] [facility] [place], [place], cm, 07/01/21 8:42:00 EDT, Height, 118.2 Start Date: 07/01/21 Stop Date: 07/08/21 Status: Ordered Start: 08-19-2018 End: 10-20-2018 Sulfamethoxazole-Trimethopri m 1 TABLET tablet Discontinued 1 {tbl} PO TWICE A DAY 20 0 August 19, 2018 12:00am October 20, 2018 9:54am Start: 08-19-2018 End: 10-20-2018 take 1 tablet by mouth twice daily Sulfamethoxazole-Trimethoprim Discontinued 1 TABLET PO TWICE A DAY August 19, 2018 12:00am October 20, 2018 9:54am traZODone hydrochloride 50 mg oral tablet (20 sources) Serotonin Reuptake Inhibitor Start: 12-13-2017 End: 02-06-2024 take 1 tablet by mouth at bedtime Trazodone 50 MG tablet Active 50 mg PO AT BEDTIME December 13, 2017 12:00am sleep 24 hr venlafaxine 150 mg extended release oral capsule (20 sources) Serotonin and Norepinephrine Reuptake Inhibitor Start: 12-18-2023 End: 12-31-2023 Start: 11-27-2021 take 300 mg by mouth at bedtim e Venlafaxine Active 300 MG PO AT BEDTIME November 27, 2021 12:00am Start: 06-18-2020 take 2 capsules by m outh once daily venlafaxine 150 mg oral capsule, extended release See Instructions, TAKE 2 CAPSULES BY MOUTH DAILY, # 56 cap(s), 11 Refill(s), Pharmacy: [facility] [id number], 157, cm, 06/18/20 10:41:00 EDT, Height, kg, 06/18/20 10:41:00 EDT, Dosing Weight Start Date: 06/18/20 Status: Ordered Start: 03-10-2017 End: 02-16-2019 take 4 capsules by mouth at bedtime Venlafaxine 75 MG capsule Discontinued 300 mg PO AT BEDTIME March 10, 2017 1:09pm February 16, 2019 4:46pm mental health Start: 03-10-2017 End: 02-16-2019 take 300 mg by mouth at bedtime Venlafaxine Discontinu ed 300 MG PO AT BEDTIME March 10, 2017 1:09pm February 16, 2019 4:46pm Start: 04-06-2016 take 2 tablets by mo uth once daily VENLAFAXINE HCL ER 150 MG [id number] Two tablets by mouth daily VENLAFAXINE HCL [id number] Ne Meier LPN Start: 12-15-2013 End: 04-16-2024 take 1 capsule by mouth every twenty-four hours at bedtime Venlafaxine 150 mg capsule,extended release 24hr Active 300 mg PO AT BEDTIME November 27, 2021 12:00am mental health Start: 12-15-2013 End: 03-10-2017 take 3 capsules by mouth at bedtime Venlafaxine 75 MG capsule Discontinued 225 mg PO AT BEDTIME December 15, 2013 12:00am March 10, 2017 1:15pm Start: 12-15-2013 End: 03-10-2017 take 225 mg by mouth at bedtime Venlafaxine Discontinu ed 225 MG PO AT BEDTIME December 15, 2013 12:00am March 10, 2017 1:15pm End: 04-06-2016 take 2 tablets by mouth twice daily EFFEXOR XR [id number] Two tablets by mouth twice daily VENLAFAXINE HCL [id number] Ne Meier LPN take 2 tablets by mo uth twice daily EFFEXOR XR [id number] Two tablets by mouth twice daily VENLAFAXINE HCL [id number] Hazel Reza LPN (1 source) Start: 01-15-2023 Completed/Discontinued Medications Medication Drug Class(es) Dates Sig (Normalized) Sig (Original) ACAPELLA (2 sources) Start: 06-17-2015 End: 12-01-2015 ACAPELLA Use Twice daily Dx: Bronchiectesis ACAPELLA Radha Jules Shear Start: 06-17-2015 ACAPELLA Use T wice daily Dx: Bronchiectesis ACAPELLA Zeny Noel CNP acetaminophen 325 mg / HYDROcodone bitartrate 5 mg oral tablet (20 sources) Opioid Agonist Start: 06-11-2023 End: 05-09-2024 Hydrocodone-Acetaminophen 5- 325 mg tablet Discontinued 1 {tbl} PO EVERY 6 HOURS NEEDED as needed for Pain 12 June 11, 2023 May 09, 2024 3:27pm Sprain of right ankle Strain of left shoulder Sprain of unspecified ligament of right ankle, initial encounter Start: 06-10-2023 take 1 tablet by lyndsay th every six hours as needed Hydrocodone-Acetaminophen Active 1 TABLE T PO EVERY 6 HOURS NEEDED 12 June 11, 2023 Start: 10-31-2021 End: 11-03-2021 take 1 tablet by mouth every six hours as needed for pain [place] 325- 5 mg oral tablet Dose = 1 tab(s), Oral, q6hr, PRN for pain, X 3 day(s), # 12 tab(s), 0 Refill(s), Rib fracture, 117.7 Start Date: 10/31/21 Stop Date: 11/03/21 Status: Ordered Start: 02-25-2021 End: 02-28-2021 take 1 tablet by mouth every six hours [place] 325- 5 mg oral tablet Dose = 1 tab(s), Oral, q6h, # 12 tab(s), 0 Refill(s), Diabetic foot ulcer, 115.1 Start Date: 02/25/21 Stop Date: 02/28/21 Status: Ordered Start: 10-15-2015 End: 04-06-2016 take 1 tablet by mouth every six hours as needed NORCO 5-325 MG TABS 1 tab po q6h as need ed HYDROCODONE-ACETAMINOPHEN [id number] Ne Meier LPN Start: 05-22-2014 End: 05-22-2014 Hydrocodone-Acetaminophen 1 TABLET tablet Discontinued 1 - 2 {tbl} PO EVERY 4 HOURS NEEDED as needed for Pain 20 0 May 22, 2014 1:00am May 22, 2014 1:10pm Start: 05-22-2014 End: 05-22-2014 take 1 tablet by mouth every four hours as needed Hydrocodone-Acetaminophen Discontinued 1 - 2 TABLET PO EVERY 4 HOURS NEEDED May 22, 2014 1:00am May 22, 2014 1:10pm acetaminophen 325 mg / oxyCODONE hydrochloride 5 mg oral tablet (20 sources) Opioid Agonist Start: 06-23-2018 End: 06-26-2018 Oxycodone-Acetaminophen 1 TABLET tablet Discontinued 1 {tbl} PO EVERY 6 HOURS NEEDED as needed for Pain 12 3 0 June 23, 2018 12:00am June 25, 2018 12:00am June 26, 2018 12:09am Contusion of hip Contusion of unspecified hip, initial encounter Start: 06-23-2018 End: 06-26-2018 take 1 tablet by mouth every six hours as needed Oxycodone-Acetaminophen Discontinued 1 TABLET PO EVERY 6 HOURS NEEDED 12 3 June 23, 2018 12:00am June 26, 2018 12:09am Start: 12-15-2013 End: 05-19-2015 Oxycodone-Acetaminophen (Per cocet) 1 EACH tablet Discontinued 1 {tbl} PO EVERY 6 HOURS NEEDED as needed for Pain December 15, 2013 12:00am March 18, 2014 3:36pm Start: 01-23-2013 End: 01-25-2013 Oxycodone-Acetaminophen 1 TA BLET tablet Discontinued 1 {tbl} PO EVERY 6 HOURS NEEDED as needed for Sob &/Or Wheezing January 23, 2013 12:00am January 25, 2013 11:53am Start: 01-23-2013 End: 01-25-2013 take 1 tablet by mouth every six hours as needed Oxycodone-Acetaminophen Discontinued 1 TABLET PO EVERY 6 HOURS NEEDED January 23, 2013 12:00am January 25, 2013 11:53am [id number] 200 actuat albuterol 0.09 mg/actuat metered dose inhaler (20 sources) beta2-Adrenergic Agonist Start: 01-30-2024 End: 02-06-2024 take 2 puff(s) by inhalation every four hours as needed for wheezing 2 Puff, Inhalation, EVERY 4 HOURS PRN, Starting on 02/04/24 at 0930, Until 02/06/24 at 1547, Wheezing, Shortness of Breath Start: 12-17-2023 End: 12-31-2023 Start: 03-11-2023 End: 12-29-2023 Albuterol Sulfate (Ventolin Hfa) 90 mcg/actuation HFA aerosol inhaler Discontinued 2 NMA INHALATION EVERY 4 HOURS NEEDED as needed for Wheezing 1 July 11, 2023 2:36pm December 29, 2023 8:34am with spacer Start: 03-11-2023 End: 07-11-2023 take 1 puff(s) by inhalation every four hours as needed Albuterol Sulfate (Ventolin Hfa) 90 mcg/actuation HFA aerosol inhaler Active 2 PUFF INHALATION EVERY 4 HOURS NEEDED July 11, 2023 2:36pm with spacer Start: 02-16-2023 VENTOLIN HFA 1 08 (90 Base) MCG/ACT inhaler 02/16/2023 Active Start: 03-31-2022 End: 04-30-2022 take 1 dose by inhalation four times daily albuterol 2.5 mg/3 mL (0.083%) inhalation solution Dose : 2.5 mg = 3 mL, Inhalation, QID, # 360 mL, 0 Refill(s), Pharmacy: [facility], Acute bacterial bronchitis, 157, cm, 03/31/22 14:29:00 EST, Height, kg, 03/31/22 14:29:00 EST, Dosing Weight Start Date: 03/31/22 Stop Date: 04/30/22 Status: Ordered Start: 11-27-2021 End: 07-11-2023 take 2.5 mg by inhalation every six hours as needed Albuterol Sulfate 2.5 mg /3 mL (0.083 %) solution for nebulization Discontinued 2.5 mg INHALATION EVERY 6 HOURS as needed for SHORTNESS OF BREATH 180 3 April 29, 2022 2:51pm July 11, 2023 2:36pm Start: 12-29-2018 End: 05-26-2023 Albuterol Sulfate 90 mcg/act uation HFA aerosol inhaler Discontinued 2 NMA INHALATION EVERY 6 HOURS as needed for shortness of breath or wheezing 18 January 10, 2023 7:55am May 26, 2023 10:56am Chronic obstructive pulmonary disease with (acute) exacerbation Start: 12-29-2018 End: 05-26-2023 take 1 puff(s) by inhalation every six hours Albuterol Sulfate Discontinued 2 PUFF INHALATION EVERY 6 HOURS January 10, 2023 7:55am May 26, 2023 10:56am Start: 12-23-2018 End: 01-22-2019 take 1 dose by inhalation four times daily albuterol 2.5 mg/3 mL (0.083%) inhalation solution Dose : 2.5 mg = 3 mL, Inhalation, QID, # 360 mL, 0 Refill(s), [facility]: [facility], Acute bacterial bronchitis Start Date: 12/23/18 Stop Date: 01/22/19 Status: Ordered Start: 12-23-2018 End: 01-22-2019 take 1 dose by inhalation four times daily albuterol 2.5 mg/3 mL (0.083%) inhalation solution Dose : 2.5 mg = 3 mL, Inhalation, QID, # 360 mL, 0 Refill(s), Pharmacy: [facility] [place] [address], Acute bacterial bronchitis Start Date: 12/23/18 Stop Date: 01/22/19 Status: Ordered Start: 08-24-2018 End: 12-29-2018 take 1 puff(s) by inhalation every six hours Albuterol Sulfate Discontinued 2 PUFF INHALATION EVERY 6 HOURS August 24, 2018 1:08pm December 29, 2018 1:02pm Start: 08-24-2018 End: 12-29-2018 take 1 puff(s) by inhalation every six hours Albuterol Sulfate Discontinued 2 PUFF INHALATION EVERY 6 HOURS August 24, 2018 2:08pm December 29, 2018 2:02pm Start: 05-18-2018 End: 08-24-2018 Albuterol Sulfate 90 mcg/act uation HFA aerosol inhaler Discontinued 2 NMA INHALATION EVERY 6 HOURS as needed for shortness of breath or wheezing 18 May 18, 2018 10:38am August 24, 2018 2:08pm Start: 05-18-2018 End: 08-24-2018 take 1 puff(s) by inhalation every six hours Albuterol Sulfate Discontinued 2 PUFF INHALATION EVERY 6 HOURS May 18, 2018 10:38am August 24, 2018 2:08pm Start: 05-18-2018 End: 08-24-2018 take 1 puff(s) by inhalation every six hours Albuterol Sulfate Discontinued 2 PUFF INHALATION EVERY 6 HOURS May 18, 2018 10:38am August 24, 2018 2:08pm Start: 05-18-2018 End: 05-18-2018 take 1 puff(s) by inhalation every six hours Albuterol Sulfate Discontinued 2 PUFF INHALATION EVERY 6 HOURS May 18, 2018 10:33am May 18, 2018 10:38am Start: 05-18-2018 End: 05-18-2018 Albuterol Sulfate 90 mcg/act uation HFA aerosol inhaler Discontinued 2 NMA INHALATION EVERY 6 HOURS as needed May 18, 2018 1:00am May 18, 2018 10:38am Start: 05-18-2018 End: 05-18-2018 take 1 puff(s) by inhalation every six hours Albuterol Sulfate Discontinued 2 PUFF INHALATION EVERY 6 HOURS May 18, 2018 1:00am May 18, 2018 10:38am Start: 04-20-2017 End: 11-01-2017 Albuterol Sulfate 1 PUFF inh aler Discontinued 2 NMA INHALATION EVERY 6 HOURS NEEDED as needed for Shortness Of Breath 18 April 20, 2017 4:59pm November 01, 2017 3:20pm Start: 04-20-2017 End: 11-01-2017 take 1 puff(s) by inhalation every six hours as needed Albuterol Sulfate Discontinued 2 PUFF INHALATION EVERY 6 HOURS NEEDED April 20, 2017 4:59pm November 01, 2017 3:20pm Start: 06-17-2015 End: 12-01-2015 take 1 dose by inhalation every four hours as needed for wheezing ALBUTEROL SULFATE 0.63 MG/3ML NEBU One vial INH q 4 hours PRN wheezing ALBUTEROL SULFATE [id number] Zeny Noel CNP Start: 04-03-2014 End: 11-27-2021 take 2.5 mg by inhalation every two hours as needed Albuterol Sulfate 2.5 mg /3 mL (0.083 %) solution for nebulization Discontinued 2.5 mg INHALATION EVERY 2 HOURS NEEDED as needed for SHORTNESS OF BREATH 180 6 March 13, 2018 3:30pm June 05, 2019 10:51am Start: 12-15-2013 End: 04-20-2017 take 1 puff(s) by inhalation every six hours as needed Albuterol Sulfate Discontinued 2 PUFF INHALATION EVERY 6 HOURS NEEDED December 15, 2013 11:00pm April 20, 2017 5:00pm Start: 12-15-2013 End: 04-20-2017 Albuterol Sulfate 1 PUFF inh aler Discontinued 2 NMA INHALATION EVERY 6 HOURS NEEDED as needed for Shortness Of Breath December 15, 2013 12:00am April 20, 2017 5:00pm Start: 12-15-2013 End: 04-20-2017 take 1 puff(s) by inhalation every six hours as needed Albuterol Sulfate Discontinued 2 PUFF INHALATION EVERY 6 HOURS NEEDED December 15, 2013 12:00am April 20, 2017 5:00pm Start: 01-25-2013 End: 06-14-2013 take 2.5 mg by inhalation every two hours as needed for wheezing Albuterol Sulfate 2.5 MG/3 ML Vial.Neb. Discontinued 2.5 mg INHALATION EVERY 2 HOURS NEEDED as needed for WHEEZING 60 0 January 25, 2013 12:00am June 14, 2013 9:17am PROAIR HFA 108 ( 90 Base) MCG/ACT AERS 2 puffs q 6 hrs prn ALBUTEROL SULFATE [id number] Zeny Noel CNP Albuterol Sulfate 90 mcg/actuation HFA aerosol inhaler (4 sources) Start: 08-24-2018 End: 12-29-2018 Albuterol Sulfate 90 mcg/actuation HFA aerosol inhaler Discontinued 2 NMA INHALATION EVERY 6 HOURS as needed for shortness of breath or wheezing 19 09August 24, 2018 2:08pm December 29, 2018 2:02pm Start: 08-24-2018 End: 12-29-2018 Albuterol Sulfate 90 mcg/act uation HFA aerosol inhaler Discontinued 2 NMA INHALATION EVERY 6 HOURS as needed for shortness of breath or wheezing August 24, 2018 2:08pm December 29, 2018 2:02pm amantadine hydrochloride 100 mg oral capsule (4 sources) Influenza A M2 Protein Inhibitor Start: 01-31-2024 End: 02-06-2024 take 1 capsule by mouth twice daily 100 mg, Oral, 2 TIMES DAILY, 180 doses, First dose on Tue01/31/24 at 0900, Last dose on Tue04/29/24 at 2100, OP SIG:Take 1 Capsule (100 mg) by mouth 2 times daily amoxicillin 500 mg oral tablet (2 sources) Penicillin-class Antibacterial Start: 06-04-2015 End: 06-17-2015 AMOXICILLIN 500 MG TABS 2 tabs three times a day for 10 days AMOXICILLIN [id number] eN Pritchard amoxicillin 875 mg / clavulanate 125 mg oral tablet (20 sources) Penicillin-class Antibacterial Start: 11-25-2023 End: 05-09-2024 Amoxicillin-Pot Clavulanate 875-125 mg tablet Discontinued 1 {tbl} PO TWICE A DAY November 25, 2023 12:00am May 09, 2024 3:26pm Start: 03-09-2022 End: 04-29-2022 Amoxicillin-Pot Clavulanate 875-125 mg tablet Discontinued 1 {tbl} PO TWICE A DAY April 15, 2022 9:58am April 29, 2022 2:56pm Start: 03-09-2022 End: 04-29-2022 take 1 tablet by mouth twice daily Amoxicillin-Pot Clavulanate Discontinued 1 TABLET PO TWICE A DAY April 15, 2022 9:58am April 29, 2022 2:56pm Start: 11-27-2021 End: 03-09-2022 Amoxicillin-Pot Clavulanate 500-125 mg tablet Discontinued 1 {tbl} PO TWICE A DAY November 27, 2021 12:00am March 09, 2022 10:57am Start: 11-27-2021 End: 03-09-2022 take 1 tablet by mouth twice daily Amoxicillin-Pot Clavulanate Discontinued 1 TABLET PO TWICE A DAY November 27, 2021 12:00am March 09, 2022 10:57am Start: 10-20-2018 End: 01-23-2019 Amoxicillin-Pot Clavulanate (Augmentin) 875-125 mg tablet Discontinued 1 {tbl} PO TWICE A DAY October 20, 2018 12:00am January 23, 2019 7:15am Start: 06-16-2017 End: 11-01-2017 Amoxicillin-Pot Clavulanate (Augmentin) 875-125 mg tablet Discontinued 1 {tbl} PO TWICE A DAY June 16, 2017 12:00am November 01, 2017 10:51am Start: 01-01-2015 End: 01-11-2015 take 1 tablet by mouth twice daily AUGMENTIN 875-125 MG TABS 1 tablet PO Twice daily AMOXICILLIN-POT CLAVULANATE [id number] Luke Mensah atenolol 50 mg oral tablet (20 sources) beta-Adrenergic Karina Start: 01-31-2024 End: 02-06-2024 100 mg, Oral, DAILY, 90 doses, First dose on 01/31/24 at 1000, Last dose on 04/29/24 at 0900 Start: 12-18-2023 End: 12-31-2023 Start: 12-15-2013 End: 04-16-2024 take 1 tablet by mouth once daily Atenolol 100 MG tablet Active 100 mg PO DAILY December 15, 2013 12:00am blood pressure atorvastatin 20 mg oral tablet (3 sources) HMG-CoA Reductase Inhibitor Start: 01-30-2024 End: 02-06-2024 40 mg, Oral, BEDTIME, 90 doses, First dose on 01/30/24 at 2330, Last dose on 04/28/24 at 2100 Start: 12-20-2023 End: 12-31-2023 Start: 12-18-2023 End: 12-20-2023 azithromycin 250 mg oral tablet (20 sources) Macrolide Antimicrobial Start: 07-11-2023 End: 11-25-2023 take 2-5 tablets by mouth once daily Azithromycin 250 mg tablet Discontinued 0 PO .COMPLEX 6 0 July 11, 2023 12:00am November 25, 2023 10:44am take 500 mg today (day 1), then 250 mg for 4 days (days 2-5) PO Start: 02-10-2023 End: 05-26-2023 take 2-5 tablets by mouth once daily Azithromycin 250 mg tablet Discontinued 0 PO .COMPLEX 6 0 February 10, 2023 1:00am May 26, 2023 10:57am take 500 mg today (day 1), then 250 mg for 4 days (days 2-5) PO Start: 01-24-2018 End: 06-07-2018 take 1 tablet by mouth once daily Azithromycin 250 mg tablet Discontinued 250 mg PO daily 6 0 June 05, 2018 1:00am June 07, 2018 10:18am Start: 12-22-2015 End: 01-13-2016 AZITHROMYCIN 250 MG TABS 2 t ablets by mouth today and then 1 tablet daily for the next 4 days AZITHROMYCIN [id number] Zeny Noel CNP Start: 10-31-2015 End: 12-01-2015 AZITHROMYCIN 250 MG TABS 2 t ablets by mouth today and then 1 tablet daily for the next 4 days AZITHROMYCIN [id number] Radha Guerrier bacitracin 0.5 unt/mg topica l ointment (7 sources) Start: 05-09-2024 End: 07-03-2024 Bacitracin 500 unit/gram ointment Discontinued TOPICAL May 09, 2024 1:00am July 03, 2024 4:07pm Start: 12-17-2023 End: 12-26-2023 Start: 02-28-2023 End: 02-28-2023 bacitracin 500 UNIT/GM ointm ent - packet benzonatate 200 mg oral capsule (20 sources) Non-narcotic Antitussive Start: 11-03-2018 End: 02-16-2019 take 1 capsule by mouth three times daily as needed for cough Benzonatate 200 mg capsule Discontinued 200 mg PO THREE TIMES A DAY as needed for cough 90 0 November 03, 2018 12:00am February 16, 2019 4:44pm bisacodyl 10 mg rectal suppository (1 source) Stimulant Laxative Start: 12-17-2023 End: 12-31-2023 120 actuat budesonide 0.16 mg/actuat / formoterol fumarate 0.0045 mg/actuat metered dose inhaler (20 sources) Corticosteroid, beta2-Adrenergic Agonist Start: 01-27-2016 End: 01-30-2016 take 2 puff(s) by inhalation twice daily SYMBICORT 160-4.5 MCG/ACT AERO 2 puffs INH Twice daily BUDESONIDE-FORMOTE ROL FUMARATE [id number] Zeny Noel CNP Start: 04-23-2015 End: 03-10-2017 Budesonide-Formoterol 1 INHA LER inhaler Discontinued 2 NMA INHALATION TWICE A DAY April 23, 2015 1:00am March 10, 2017 11:59am Start: 04-23-2015 End: 03-10-2017 take 1 puff(s) by inhalation twice daily Budesonide-Formoterol Discontinued 2 PUFF INHALATION TWICE A DAY April 23, 2015 1:00am March 10, 2017 11:59am End: 12-01-2015 SYMBICORT 160-4.5 MCG/ACT AE RO 2 puffs daily BUDESONIDE-FORMOTEROL FUMARATE [id number] Radha Guerrier buPROPion hydrochloride 75 m g oral tablet (20 sources) Aminoketone Start: 01-30-2024 End: 02-06-2024 150 mg, Oral, 2 TIMES DAILY, 180 doses, First dose on Tue01/30/24 at 2300, Last dose on Tue04/29/24 at 0900, Do not Crush Start: 02-04-2023 buPROPion SR ( ZYBAN SR; WELLBUTRIN SR) 150 mg 12 hr tablet Start: 11-27-2021 End: 07-03-2024 take 1 tablet by mouth twice daily Bupropion Hcl 150 mg tablet sustained-release 12 hr Discontinued 150 mg PO TWICE A DAY November 27, 2021 12:00am July 03, 2024 4:07pm mental health Start: 02-16-2019 End: 11-27-2021 take 1 tablet by mouth twice daily Bupropion Hcl 100 mg tablet Discontinued 100 mg PO TWICE A DAY February 16, 2019 1:00am November 27, 2021 10:43am Start: 03-10-2017 End: 02-16-2019 Bupropion Hcl 200 MG tablet extended release 12 hr Discontinued 400 mg PO DAILY March 10, 2017 11:59am February 16, 2019 4:42pm anxiety Start: 03-10-2017 End: 02-16-2019 take 400 mg by mouth once daily Bupropion Hcl Disconti nued 400 MG PO DAILY March 10, 2017 11:59am February 16, 2019 4:42pm Start: 12-03-2014 End: 03-10-2017 take 1 tablet by mouth twice daily Bupropion Hcl 200 MG tablet extended release 12 hr Discontinued 200 mg PO TWICE A DAY December 03, 2014 12:00am March 10, 2017 1:07pm take 2 tablets by mo ut twice daily buPROPion (WELLBUTRIN) 100 MG tablet Take 2 Tablets (200 mg) by mouth 2 times daily Active take 2 tablets by mo uth once daily WELLBUTRIN SR 200 MG [id number] Two tablets by mouth daily BUPROPION HCL [id number] Hazel Reza LPN calcium chloride 0.001 meq/m l / glucose 50 mg/ml / potassium chloride 0.004 meq/ml / sodium chloride 0.103 meq/ml / sodium lactate 0.028 meq/ml injectable solution (1 source) Start: 12-26-2023 End: 12-26-2023 calcium chloride 0.0014 meq/ ml / potassium chloride 0.004 meq/ml / sodium chloride 0.103 meq/ml / sodium lactate 0.028 meq/ml injectable solution (2 sources) Start: 12-29-2023 End: 12-29-2023 Start: 12-21-2023 End: 12-22-2023 cephalexin 500 mg oral capsule (20 sources) Cephalosporin Antibacterial Start: 05-07-2024 End: 07-03-2024 take 1 capsule by mouth every six hours Cephalexin 500 mg capsule Discontinued 500 mg PO EVERY 6 HOURS 40 10 0 May 07, 2024 1:00am July 03, 2024 4:07pm Start: 08-19-2018 End: 10-20-2018 take 1 capsule by mouth every six hours Cephalexin 500 MG capsule Discontinued 500 mg PO EVERY 6 HOURS 40 0 August 19, 2018 12:00am October 20, 2018 9:55am 50 ml clindamycin 12 mg/ml i njection (3 sources) Lincosamide Antibacterial Start: 12-20-2023 End: 12-26-2023 Start: 07-04-2021 End: 07-14-2021 clindamycin 300 mg oral caps ule Dose : 300 mg = 1 cap(s), PO, q6hr, X 10 day(s), # 40 cap(s), 0 Refill(s), 07/14/21 21:59:00 EDT, Cellulitis, 118.2 Start Date: 07/04/21 Stop Date: 07/14/21 Status: Ordered collagenase 0.25 unt/mg topi adolph ointment (3 sources) Collagen-specific Enzyme Start: 12-17-2023 End: 12-26-2023 Start: 12-17-2023 End: 12-17-2023 dextromethorphan hydrobromide 1 mg/ml / guaiFENesin 20 mg/ml oral solution (2 sources) Uncompetitive V-lrzogd-S-aspartate Receptor Antagonist, Sigma-1 Agonist Start: 01-13-2016 End: 04-06-2016 DELSYM COUGH/CHEST CONGEST D M 5-100 MG/5ML LIQD follow dosage instructions on bottle DEXTROMETHORPHAN-GUAIFENESIN [id number] Samira Camara ESCAPEMENT MATCHER docusate sodium 100 mg oral capsule (20 sources) Start: 01-31-2024 End: 02-06-2024 100 mg, Oral, DAILY, 90 dose s, First dose on Tu01/31/24 at 0900, Last dose on 04/29/24 at 0900 Start: 12-27-2023 End: 12-31-2023 Start: 12-18-2023 End: 12-26-2023 Start: 06-18-2020 docusate sodiu m 100 mg oral capsule Dose : 200 mg = 2 cap(s), Oral, BID, PRN as needed for constipation, # 360 cap(s), 3 Refill(s), [place] [facility] [place], cm, 02/01/23 14:08:00 EDT, Height, kg, 02/01/23 14:08:00 EDT, Dosing Weight Start Date: 04/22/23 Status: Ordered Start: 12-03-2014 End: 03-10-2017 take 200 mg by mouth twice daily Docusate Sodium Activ e 200 MG PO TWICE A DAY March 10, 2017 1:08pm Start: 03-18-2014 End: 03-10-2017 take 2 capsules by mouth twice daily as needed for constipation Docusate Sodium 100 MG capsule Discontinued 200 mg PO TWICE A DAY as needed for Constipation December 03, 2014 7:32pm March 10, 2017 1:15pm Drug or medicament (substanc e) (3 sources) Start: 12-23-2023 End: 12-23-2023 Start: 12-21-2023 End: 12-21-2023 Start: 12-21-2023 End: 12-21-2023 DULoxetine 60 mg delayed release oral capsule (20 sources) Serotonin and Norepinephrine Reuptake Inhibitor Start: 01-24-2013 End: 05-05-2013 take 1 capsule by mouth once daily Duloxetine 60 MG capsule Discontinued 60 mg PO DAILY January 24, 2013 12:00am May 05, 2013 7:00pm enoxaparin sodium 100 mg/ml injectable solution (20 sources) Low Molecular Weight Heparin Start: 02-06-2024 End: 02-06-2024 inject 1 dose by subcutaneous injection once 45 mg, Subcutaneous, ONCE, 1 dose, On Tue02/06/24 at 0930, Preferred ADMIN Site is ABDOMEN. Please give Benadryl with Lovenox , What is the Indication: Prophylaxis, Is this a home medication? Yes Start: 02-03-2024 End: 02-05-2024 45 mg, Subcutaneous, 2 TIMES DAILY, 6 doses, First dose (after last modification) on Tue02/03/24 at 0900, Last dose on 02/05/24 at 2100, Preferred ADMIN Site is ABDOMEN. Please give Benadryl with Lovenox , What is the Indication: Prophylaxis, Is this a home medication? Yes Start: 01-31-2024 End: 02-03-2024 40 mg, Subcutaneous, 2 TIMES DAILY, 180 doses, First dose on Tue01/31/24 at 0900, Last dose on 04/29/24 at 2100, Preferred ADMIN Site is ABDOMEN. Please give Benadryl with Lovenox , What is the Indication: Prophylaxis, Is this a home medication? Yes Start: 01-25-2024 End: 02-06-2024 inject 0.4 mL by subcutaneous injection every twelve hours Enoxaparin Sodium (LOVENOX) 40 MG/0.4ML SQ Inject 0.4 mL (40 mg) into the skin every 12 hours 1 Each 01/25/2024 02/06/2024 Discontinued (Stop Taking (On AVS)) Start: 01-25-2024 inject 0.4 mL by sub cutaneous injection every twelve hours Enoxaparin Sodium (LOVENOX) 40 MG/0.4ML SQ Inject 0.4 mL (40 mg) into the skin every 12 hours 1 Each 01/25/2024 Active Start: 12-27-2023 End: 12-29-2023 Start: 12-24-2023 End: 12-25-2023 Start: 12-22-2023 End: 12-24-2023 Start: 12-20-2023 End: 12-20-2023 Start: 01-25-2013 End: 05-05-2013 Enoxaparin 120 MG/0.8 ML syr cecille Discontinued 120 mg SC Q12@0600,1800 14 0 January 25, 2013 12:00am May 05, 2013 6:58pm erythromycin 0.005 mg/mg ophthalmic ointment (1 source) Macrolide, Macrolide Antimicrobial Start: 08-22-2021 End: 08-27-2021 erythromycin 0.5% ophthalmic ointment Dose = 1 jing, Eye, right, QID, X 5 day(s), # 3.5 gram(s), 0 Refill(s) Start Date: 08/22/21 Stop Date: 08/27/21 Status: Ordered esomeprazole 40 mg delayed release oral capsule (20 sources) Proton Pump Inhibitor Start: 06-30-2016 End: 03-10-2017 take 1 capsule by mouth once daily Esomeprazole Magnesium 40 MG capsule Discontinued 40 mg PO DAILY June 30, 2016 12:00am March 10, 2017 1:14pm End: 09-08-2016 take 1 tablet by mouth once daily NEXIUM 40 MG PACK One tablet by mouth daily ESOMEPRAZOLE MAGNESIUM [id number] Pako Glover 5 ml fentaNYL 0.05 mg/ml injection (2 sources) Opioid Agonist Start: 02-03-2024 End: 02-03-2024 1 dose, Starting on Tue02/03/24 at 1006, Until Tue02/03/24 at 1033, Samantha Ching: cabinet override, Samantha Ching: cabinet override Start: 01-30-2024 End: 01-30-2024 48 mcg (rounded from 47.8 mc g = 1 mcg/kg/DOSE 47.8 kg [place] weight), Intravenous, EVERY 5 MIN PRN, 3 doses, Starting on Tue01/30/24 at 1918, Until Tue01/30/24 at 1957, Severe Pain = Pain Score 7-10, Use IV narcotic prior to using oxycodone when not tolerating oral intake., Call anesthesiologist before giving third dose of pain medication, PACU fentaNYL (SUBLIMAZE) injection 100 mcg (1 source) Start: 02-02-2024 End: 02-06-2024 fentaNYL (SUBLIMAZE) injection 100 mcg ferrous sulfate 325 mg oral tablet (20 sources) Start: 03-17-2014 End: 06-08-2022 take 1 tablet by mouth twice daily Ferrous Sulfate 325 MG tablet Discontinued 325 mg PO TWICE A DAY March 17, 2014 1:00am June 08, 2022 12:43pm Start: 03-17-2014 End: 07-03-2024 take 1 tablet by mouth once daily Ferrous Sulfate 325 MG tablet Discontinued 325 mg PO DAILY 30 0 June 08, 2022 12:43pm July 03, 2024 4:09pm supplement 60 actuat fluticasone propionate 0.232 mg/actuat / salmeterol xinafoate 0.014 mg/actuat dry powder inhaler (20 sources) Corticosteroid, beta2-Adrenergic Agonist Start: 01-31-2023 fluticasone propion-salmeterol 232-14 mcg/actuation Start: 04-26-2022 take 1 puff(s) by in halation twice daily fluticasone-salmeterol 232 mcg-14 mcg/inh inhalation powder 1 puff, Inhalation, BID, # 3 EA, 3 Refill(s), Pharmacy: [facility] [place], 157, cm, 03/31/22 14:29:00 EST, Height, kg, 03/31/22 14:29:00 EST, Dosing Weight Start Date: 04/26/22 Status: Ordered Start: 05-22-2021 take 1 puff(s) by in halation twice daily fluticasone-salmeterol 232 mcg-14 mcg/inh inhalation powder 1 puff, Inhalation, BID, # 3 EA, 3 Refill(s), Pharmacy: [id number], 158, cm, 04/01/21 8:52:00 EST, Height, kg, 04/01/21 8:52:00 EST, Dosing Weight Start Date: 05/22/21 Status: Ordered Start: 01-22-2020 End: 07-11-2023 Fluticasone Propion-Salmeter ol (Airduo Respiclick) 232-14 mcg/actuation aerosol powdr breath activated Discontinued 1 INH INHALATION TWICE A DAY December 30, 2022 11:04am July 11, 2023 8:19am Start: 04-27-2018 End: 06-14-2018 Fluticasone Propion-Salmeter ol (Advair Hfa) 230-21 mcg/actuation HFA aerosol inhaler Discontinued 2 NMA INHALATION TWICE A DAY 1 April 27, 2018 3:53pm June 14, 2018 2:17pm Start: 04-27-2018 End: 06-14-2018 Fluticasone Propion-Salmeter ol (Advair Hfa) 230-21 mcg/actuation HFA aerosol inhaler Discontinued 2 NMA INHALATION TWICE A DAY April 27, 2018 3:53pm June 14, 2018 2:17pm Start: 04-27-2018 End: 06-14-2018 take 1 puff(s) by inhalation twice daily Fluticasone Propion-Salmeterol (Advair Hfa) 230-21 mcg/actuation HFA aerosol inhaler Discontinued 2 PUFF INHALATION TWICE A DAY 1 April 27, 2018 2:53pm June 14, 2018 1:17pm Start: 04-27-2018 End: 06-14-2018 take 1 puff(s) by inhalation twice daily Fluticasone Propion-Salmeterol (Advair Hfa) 230-21 mcg/actuation HFA aerosol inhaler Discontinued 2 PUFF INHALATION TWICE A DAY 1 April 27, 2018 3:53pm June 14, 2018 2:17pm Start: 04-27-2018 End: 04-27-2018 take 1 puff(s) by inhalation twice daily Fluticasone Propion-Salmeterol (Advair Hfa) 230-21 mcg/actuation HFA aerosol inhaler Discontinued 2 PUFF INHALATION TWICE A DAY 1 April 27, 2018 3:23pm April 27, 2018 3:53pm Start: 04-27-2018 End: 04-27-2018 Fluticasone Propion-Salmeter ol (Advair Hfa) 230-21 mcg/actuation HFA aerosol inhaler Discontinued 2 NMA INHALATION TWICE A DAY 1 April 27, 2018 1:00am April 27, 2018 3:53pm Start: 04-27-2018 End: 04-27-2018 Fluticasone Propion-Salmeter ol (Advair Hfa) 230-21 mcg/actuation HFA aerosol inhaler Discontinued 2 NMA INHALATION TWICE A DAY 1 April 27, 2018 1:00am April 27, 2018 3:53pm Start: 04-27-2018 End: 04-27-2018 take 1 puff(s) by inhalation twice daily Fluticasone Propion-Salmeterol (Advair Hfa) 230-21 mcg/actuation HFA aerosol inhaler Discontinued 2 PUFF INHALATION TWICE A DAY April 27, 2018 12:00am April 27, 2018 2:53pm Start: 04-27-2018 End: 04-27-2018 take 1 puff(s) by inhalation twice daily Fluticasone Propion-Salmeterol (Advair Hfa) 230-21 mcg/actuation HFA aerosol inhaler Discontinued 2 PUFF INHALATION TWICE A DAY 1 April 27 2019 1:00am April 27, 2018 3:53pm Start: 04-20-2018 End: 06-01-2024 Fluticasone Propion-Salmeter ol (Airduo Respiclick) 232-14 mcg/actuation aerosol powdr breath activated Discontinued 1 NMA INHALATION TWICE A DAY 04 09July 11, 2023 8:19am November 25, 2023 10:47am Chronic obstructive pulmonary disease with (acute) exacerbation Start: 04-20-2018 End: 01-22-2020 take 1 puff(s) by inhalation twice daily Fluticasone Propion-Salmeterol (Airduo Respiclick) 232-14 mcg/actuation aerosol powdr breath activated Discontinued 1 PUFF INHALATION TWICE A DAY April 02, 2019 4:30pm June 05, 2019 10:51am Start: 01-23-2013 End: 05-05-2013 take 1 puff(s) by inhalation once daily Advair Discontinued 1 PUFF INHALATION DAILY January 23, 2013 11:12pm May 05, 2013 6:58pm Start: 01-23-2013 End: 05-05-2013 Advair Discontinued 1 NMA IN HALATION DAILY January 23, 2013 12:00am May 05, 2013 6:58pm Start: 01-23-2013 End: 05-05-2013 take 1 puff(s) by inhalation once daily Advair Discontinued 1 PUFF INHALATION DAILY January 22, 2013 11:00pm May 05, 2013 5:58pm Start: 01-23-2013 End: 05-05-2013 take 1 puff(s) by inhalation once daily Advair Discontinued 1 PUFF INHALATION DAILY January 23, 2013 12:00am May 05, 2013 6:58pm Fluticasone Furoate-Vilanterol (20 sources) Corticosteroid, beta2-Adrenergic Agonist Start: 12-12-2017 End: 04-20-2018 take 1 dose by inhalation once daily Fluticasone Furoate-Vilanterol 1 EACH blister with device Discontinued 1 NMA INHALATION daily December 12, 2017 11:19pm April 20, 2018 9:10am shortness of breath Start: 12-12-2017 End: 04-20-2018 take 1 dose by inhalation once daily Fluticasone Furoate-Vilanterol 1 EACH blister with device Discontinued 1 NMA INHALATION daily December 12, 2017 11:19pm April 20, 2018 9:10am Start: 12-12-2017 End: 04-20-2018 Fluticasone Furoate-Vilanter ol Discontinued 1 EACH INHALATION daily December 12, 2017 10:19pm April 20, 2018 8:10am Start: 12-12-2017 End: 04-20-2018 Fluticasone Furoate-Vilanter ol Discontinued 1 EACH INHALATION daily December 12, 2017 11:19pm April 20, 2018 9:10am Start: 11-01-2017 End: 12-12-2017 Fluticasone Furoate-Vilanter ol 200-25 mcg/dose blister with device Discontinued 1 NMA INHALATION daily 60 6 November 01, 2017 3:20pm December 12, 2017 11:22pm Start: 11-01-2017 End: 12-12-2017 Fluticasone Furoate-Vilanter ol 200-25 mcg/dose blister with device Discontinued 1 NMA INHALATION daily 60 November 01, 2017 3:20pm December 12, 2017 11:22pm Start: 11-01-2017 End: 12-12-2017 Fluticasone Furoate-Vilanter ol Discontinued 1 EACH INHALATION daily 60 November 01, 2017 2:20pm December 12, 2017 10:22pm Start: 11-01-2017 End: 12-12-2017 Fluticasone Furoate-Vilanter ol Discontinued 1 EACH INHALATION daily 60 November 01, 2017 3:20pm December 12, 2017 11:22pm Start: 04-20-2017 End: 11-01-2017 take 1 dose by inhalation once daily Fluticasone Furoate-Vilanterol 1 EACH blister with device Discontinued 1 NMA INHALATION daily 60 6 April 20, 2017 4:59pm November 01, 2017 3:20pm Start: 04-20-2017 End: 11-01-2017 take 1 dose by inhalation once daily Fluticasone Furoate-Vilanterol 1 EACH blister with device Discontinued 1 NMA INHALATION daily 60 April 20, 2017 4:59pm November 01, 2017 3:20pm Start: 04-20-2017 End: 11-01-2017 Fluticasone Furoate-Vilanter ol Discontinued 1 EACH INHALATION daily 60 April 20, 2017 3:59pm November 01, 2017 2:20pm Start: 04-20-2017 End: 11-01-2017 Fluticasone Furoate-Vilanter ol Discontinued 1 EACH INHALATION daily 60 April 20, 2017 4:59pm November 01, 2017 3:20pm Start: 06-30-2016 End: 04-20-2017 Fluticasone Furoate-Vilanter ol Discontinued 1 EACH IH June 30, 2016 6:05pm April 20, 2017 5:00pm Start: 06-30-2016 End: 04-20-2017 Fluticasone Furoate-Vilanter ol 1 EACH blister with device Discontinued 1 NMA IH June 30, 2016 12:00am April 20, 2017 5:00pm Start: 06-30-2016 End: 04-20-2017 Fluticasone Furoate-Vilanter ol Discontinued 1 EACH IH June 29, 2016 11:00pm April 20, 2017 4:00pm Start: 06-30-2016 End: 04-20-2017 Fluticasone Furoate-Vilanter ol Discontinued 1 EACH IH June 30, 2016 12:00am April 20, 2017 5:00pm Start: 01-29-2016 take 1 puff(s) by in halation once daily BREO ELLIPTA 200-25 MCG/INH AEPB 1 puff daily FLUTICASONE FUROATE-VILANTEROL [id number] Zeny Noel CNP furosemide 20 mg oral tablet (20 sources) Loop Diuretic Start: 12-27-2023 End: 12-29-2023 Start: 04-09-2022 End: 09-05-2024 take 1 tablet by mouth once daily Furosemide 40 mg tablet Discontinued 40 mg PO DAILY 30 April 20, 2022 4:26pm April 22, 2023 3:11pm diabetic Start: 06-29-2021 End: 04-09-2022 take 1 tablet by mouth once daily Furosemide 20 mg tablet Discontinued 20 mg PO DAILY 90 March 30, 2022 3:42pm April 09, 2022 5:00pm Start: 12-12-2020 furosemide 20 mg oral tablet Dose : 20 mg = 1 tab(s), Oral, qDay, # 30 tab(s), 5 Refill(s), Pharmacy: [facility] [id number], 157, cm, 09/17/20 11:01:00 EDT, Height, kg, 09/17/20 11:01:00 EDT, Dosing Weight Start Date: 12/12/20 Status: Ordered Start: 02-16-2019 End: 11-27-2021 take 1 tablet by mouth once daily Furosemide 40 mg tablet Discontinued 40 mg PO DAILY 90 3 April 24, 2021 4:40pm November 27, 2021 10:37am diuretic Start: 02-16-2019 End: 02-16-2019 take 2 tablets by mouth once daily Furosemide 20 mg tablet Discontinued 40 mg PO DAILY February 16, 2019 5:58pm February 16, 2019 6:00pm diuretic Start: 02-16-2019 End: 02-16-2019 take 40 mg by mouth once daily Furosemide Discontinued 40 MG PO DAILY February 16, 2019 5:58pm February 16, 2019 6:00pm Start: 05-19-2015 End: 02-16-2019 take 1 tablet by mouth once daily Furosemide 20 MG tablet Discontinued 20 mg PO DAILY June 30, 2016 12:00am February 16, 2019 5:58pm diuretic End: 04-06-2016 take 1 tablet by mouth once daily FUROSEMIDE 40 MG TABS One tablet by mouth daily FUROSEMIDE [id number] Radha Jules Shear glimepiride 2 mg oral tablet (20 sources) Sulfonylurea Start: 01-31-2024 End: 02-06-2024 take 4 mg by mouth once daily at breakfast 4 mg, Oral, DAILY WITH BREAKFAST, 90 doses, First dose on 01/31/24 at 0830, Last dose on 04/29/24 at 0830 Start: 12-28-2023 End: 12-31-2023 Start: 12-23-2023 End: 12-25-2023 Start: 12-19-2023 End: 12-20-2023 Start: 04-23-2015 take 1 tablet by lyndsay th once daily Glimepiride 4 MG tablet Active 4 mg PO DAILY April 23, 2015 1:00am diabetes 12 hr guaiFENesin 1200 mg extended release oral tablet (20 sources) Start: 01-30-2024 End: 02-06-2024 take 600 mg by mouth every twelve hours as needed for congestion 600 mg, Oral, EVERY 12 HOURS PRN, Starting on Tue01/30/24 at 2248, Until Tue02/06/24 at 1547, Congestion, Do not crush Start: 12-28-2023 End: 12-31-2023 Start: 12-24-2023 End: 12-27-2023 Start: 12-18-2023 End: 12-24-2023 Start: 12-28-2022 End: 07-18-2023 take 1200 mg by mouth every twelve hours Guaifenesin Active 1200 MG PO Q12H 60 July 18, 2023 9:46am Start: 10-18-2018 End: 08-07-2024 take 1 tablet by mouth every twelve hours Guaifenesin 1,200 mg tablet extended release 12hr Discontinued 1200 mg PO Q12H 60 February 02, 2024 7:56am August 07, 2024 2:25pm Smoking greater than 30 pack years Nicotine dependence, cigarettes, uncomplicated cough Start: 12-15-2017 End: 06-05-2018 take 1 tablet by mouth twice daily Guaifenesin 1,200 mg tablet extended release 12hr Discontinued 1200 mg PO TWICE A DAY 14 0 March 13, 2018 3:30pm June 05, 2018 11:18am End: 04-06-2016 MUCINEX 600 MG [id number] as needed GUAIFENESIN [id number] Radha Jules Shear HANDICAP PLACARD (1 source) Start: 01-13-2016 HANDICAP PLACARD lifetime HANDICAP PLACARD Samira Camara NP hydrOXYzine hydrochloride 25 mg oral tablet (1 source) Antihistamine Start: 02-01-2024 End: 02-06-2024 take 25 mg by mouth every six hours as needed 25 mg, Oral, EVERY 6 HOURS PRN, Starting on Tue02/01/24 at 1212, Until Tue02/06/24 at 1547, Allergies ibuprofen 200 mg oral tablet (2 sources) Nonsteroidal Anti-inflammatory Drug Start: 04-06-2016 GENPRIL 200 MG TABS 2 tabs every 6 hours for rib pain IBUPROFEN [id number] Zeny Noel CNP Start: 01-13-2016 ADVIL 200 MG C APS take one to two tabs every 8 hours as needed for moderate pain IBUPROFEN [id number] Samira Camara ESCAPEMENT MATCHER 3 ml insulin lispro 100 unt/ml pen injector (20 sources) Insulin Analog Start: 06-08-2022 End: 05-09-2024 Insulin Lispro (Humalog Kwikpen Insulin) 100 unit/mL insulin pen Discontinued 0 U SC BEFORE MEALS AND AT BEDTIME May 26, 2023 10:58am May 09, 2024 3:27pm diabetes Please contact the information source for Protocol details. Start: 06-08-2022 End: 12-31-2023 insulin lispro (HUMALOG KWIKPEN) 100 unit/mL (1 source) Start: 06-08-2022 insulin lispro (HUMALOG KWIKPEN) 100 unit/mL Insulin Lispro (Humalog Kwikpen Insulin) 100 unit/mL Insulin Pen Active 0 UNIT SC BEFORE MEALS AND AT BEDTIME June 08, 2022 1:00am 0 06/08/2022 Active Comment on above: Insulin Lispro (Sarahi log Kwikpen Insulin) 100 unit/mL Insulin Pen Active 0 UNIT SC BEFORE MEALS AND AT BEDTIME June 08, 2022 1:00am insulin lispro (HumaLOG) injection (Meals/Bedtime-Vial Calculator) 0-10 Units (1 source) Start: 12-18-2023 End: 12-28-2023 insulin lispro (HumaLOG) injection (Meals/Bedtime-Vial Calculator) 0-20 Units (1 source) Start: 01-31-2024 End: 02-06-2024 0-20 Units, Subcutaneous, Before Meals & At Bedtime, 360 doses, First dose on 01/31/24 at 0830, Last dose on 04/29/24 at 2100, Calculated doses can be validated in this manner: (Current blood glucose - blood glucose target)/correction factor = Glucose Correction Dose. Carb intake/carb ratio = carbohydrate-based dose. Glucose correction dose + carbohydrate-based dose = Total Insulin dose to be administered. levoFLOXacin 500 mg oral tablet (20 sources) Quinolone Antimicrobial Start: 02-21-2018 End: 02-26-2018 take 1 tablet by mouth every twenty-four hours Levofloxacin (Levaquin) 500 mg tablet Discontinued 500 mg PO Q24H 5 5 0 February 21, 2018 1:00am February 25, 2018 1:00am February 26, 2018 1:13am Start: 12-06-2017 End: 12-11-2017 take 1 tablet by mouth every twenty-four hours Levofloxacin (Levaquin) 500 mg tablet Discontinued 500 mg PO Q24H 5 5 0 December 06, 2017 12:00am December 10, 2017 12:00am December 11, 2017 12:12am Start: 07-21-2017 End: 07-26-2017 take 1 tablet by mouth every twenty-four hours Levofloxacin (Levaquin) 500 mg tablet Discontinued 500 mg PO Q24H 5 5 0 July 21, 2017 12:00am July 25, 2017 12:00am July 26, 2017 12:06am Start: 04-06-2016 End: 09-08-2016 LEVAQUIN 750 MG TABS 1 tab d aily LEVOFLOXACIN [id number] Pako Glover Start: 01-23-2015 End: 03-10-2017 take 1 tablet by mouth once daily Levofloxacin 500 MG tablet Discontinued 500 mg PO DAILY 7 0 May 23, 2015 1:00am March 10, 2017 1:12pm lisinopril 5 mg oral tablet (2 sources) Angiotensin Converting Enzyme Inhibitor Start: 02-04-2024 End: 02-06-2024 10 mg, Oral, DAILY, 90 doses, First dose on 02/04/24 at 1000, Last dose on Zoey 05/03/24 at 0900 Start: 12-28-2023 End: 12-29-2023 loratadine 10 mg oral capsule (20 sources) Start: 11-27-2021 End: 02-06-2024 take 1 tablet by mouth once daily Loratadine 10 mg tablet Discontinued 10 mg PO DAILY 90 3 April 29, 2022 2:51pm December 02, 2023 1:31pm allergies Start: 06-05-2019 End: 04-29-2022 take 1 capsule by mouth once daily Loratadine 10 mg capsule Discontinued 10 mg PO daily 30 February 03, 2022 10:23am April 29, 2022 2:52pm magnesium hydroxide 80 mg/ml oral suspension (1 source) Start: 12-20-2023 End: 12-20-2023 methotrexate 2.5 mg oral tablet (20 sources) Folate Analog Metabolic Inhibitor Start: 06-30-2016 End: 03-10-2017 Methotrexate Sodium 2.5 MG tablet Discontinued 2.5 mg PO DIRECTED June 30, 2016 12:00am March 10, 2017 1:15pm METHOTREXATE 2.5 MG TABS 3 tabs per week METHOTREXATE SODIUM [id number] Radha Guerrier methylprednisoLONE 32 mg oral tablet (2 sources) Corticosteroid End: 02-20-2014 take 1 tablet by mouth once daily MEDROL 32 MG TABS One tablet by mouth daily METHYLPREDNISOLONE [id number] Luke Mensah midazolam 1 mg/ml injectable solution (2 sources) Benzodiazepine Start: 02-03-2024 End: 02-03-2024 1 dose, Starting on Tue02/03/24 at 1007, Until Tue02/03/24 at 1033, Samantha Ching: cabinet override, Samantha Ching: cabinet override Start: 02-02-2024 End: 02-06-2024 midazolam (VERSED) IV 2 mg Mometasone (20 sources) Corticosteroid Start: 01-23-2013 End: 01-25-2013 take 1 puff(s) by inhalation once daily Asmanex Discontinued 2 PUFF INHALATION DAILY January 23, 2013 11:12pm January 25, 2013 11:51am Start: 01-23-2013 End: 01-25-2013 Asmanex Discontinued 2 NMA INHALATION DAILY January 23, 2013 12:00am January 25, 2013 11:51am Start: 01-23-2013 End: 01-25-2013 take 1 puff(s) by inhalation once daily Asmanex Discontinued 2 PUFF INHALATION DAILY January 22, 2013 11:00pm January 25, 2013 10:51am Start: 01-23-2013 End: 01-25-2013 take 1 puff(s) by inhalation once daily Asmanex Discontinued 2 PUFF INHALATION DAILY January 23, 2013 12:00am January 25, 2013 11:51am montelukast 10 mg oral tablet (20 sources) Leukotriene Receptor Antagonist Start: 06-05-2019 End: 08-07-2024 take 1 tablet by mouth once daily in the evening Montelukast 10 mg tablet Discontinued 10 mg PO EVERY EVENING 30 January 27, 2024 11:21am August 07, 2024 2:25pm allergies naproxen sodium 550 mg oral tablet (3 sources) Nonsteroidal Anti-inflammatory Drug Start: 06-04-2015 End: 12-01-2015 NAPROXEN SODIUM 550 MG TABS 1 tab twice daily as needed for pain NAPROXEN SODIUM [id number] Zeny S Bert REGISTER REPAIRER nicotine (20 sources) Cholinergic Nicotinic Agonist Start: 04-06-2016 EQ NICOTINE 14 MG/24HR PT24 1 patch daily NICOTINE [id number] Zeny Noel REGISTER REPAIRER Start: 01-09-2014 End: 03-18-2014 apply 21 mg transdermal route once daily Nicotine 21 MG patch Discontinued 21 mg TRANSDERM. DAILY 14 0 January 09, 2014 12:00am March 18, 2014 3:36pm Start: 01-25-2013 End: 05-05-2013 apply 21 mg transdermal route once daily Nicotine 21 MG patch Discontinued 21 mg TRANSDERM. DAILY 30 0 January 25, 2013 12:00am May 05, 2013 6:57pm End: 02-20-2014 NICODERM CQ 21 MG/24HR PT24 daily NICOTINE [id number] Hazel Reza LPN nystatin 745220 unt/ml oral suspension (6 sources) Polyene Antifungal Start: 02-18-2023 End: 12-31-2023 Start: 02-18-2023 take 5 mL by mouth f our times daily nystatin (MYCOSTATIN) 632942 UNIT/ML oral suspension swish and swallow 5 milliliters by mouth four times a day until finished 0 02/18/2023 Active Start: 02-18-2023 nystatin (MYCO STATIN) 100,000 unit/mL suspension Indications: Thrush Take 5 mL by mouth four times daily. 1tsp swish in mouth for several minutes, then swallow (or expectorate) 4 times daily until gone. 200 mL 0 02/18/2023 Active End: 04-06-2016 NYSTATIN [id number] UNIT/GM CREA as needed NYSTATIN [id number] Radha Guerrier Comment on above: Take 5 mL by mouth f our times daily. 1tsp swish in mouth for several minutes, then swallow (or expectorate) 4 times daily until gone. omeprazole 20 mg delayed release oral capsule (20 sources) Proton Pump Inhibitor Start: 4 End: 4 take 2 capsules by mouth once daily 40 mg, Oral, DAILY, 90 doses, First dose on Tu01/31/24 at 0900, Last dose on 04/29/24 at 0900, Do not crushOP SIG:Take 2 Capsules (40 mg) by mouth daily Start: 12-18-2023 End: 12-31-2023 Start: 12-15-2013 End: 04-16-2024 take 1 capsule by mouth once daily Omeprazole 40 MG capsule,delayed release(DR/EC) Active 40 mg PO DAILY December 15, 2013 12:00am GERD take 2 capsules by m outh once daily omeprazole (PRILOSEC) 20 MG capsule Take 2 Capsules (40 mg) by mouth daily Active ondansetron 8 mg disintegrating oral tablet (20 sources) Serotonin-3 Receptor Antagonist Start: 12-31-2015 End: 03-10-2017 take 1 tablet by mouth every twelve hours as needed for nausea Ondansetron 8 MG tablet,disintegrating Discontinued 8 mg PO EVERY 12 HOURS NEEDED as needed for Nausea 10 0 December 31, 2015 12:00am March 10, 2017 1:12pm 12 hr orphenadrine citrate 100 mg extended release oral tablet (2 sources) Muscle Relaxant End: 04-06-2016 take 1 tablet by mouth once daily ORPHENADRINE CITRATE ER 100 MG [id number] One tablet by mouth daily ORPHENADRINE CITRATE [id number] Ne Meier LPN oxyCODONE hydrochloride 5 mg oral tablet (20 sources) Opioid Agonist Start: 02-17-2024 End: 03-02-2024 take 1 tablet by mouth once daily as needed for pain oxyCODONE, immediate release, (ROXICODONE) 5 MG tablet Take 1 Tablet (5 mg) by mouth daily as needed for Pain (30 minutes prior to dressing change) for up to 7 days 7 Tablet 02/24/2024 03/02/2024 Start: 02-06-2024 End: 02-13-2024 take 1 capsule by mouth every eight hours as needed for pain oxyCODONE 5 MG Take 1 Capsule (5 mg) by mouth every 8 hours as needed for Pain for up to 7 days 14 Capsule 02/06/2024 02/13/2024 Start: 01-30-2024 End: 02-06-2024 take 5 mg by mouth every six hours as needed for pain 5 mg, Oral, EVERY 6 HOURS PRN, Starting on Tue01/30/24 at 2119, Until Tue02/06/24 at 1547, Moderate Pain = Pain Score 4-6, please use PO medication before using IV medication for breakthrough if able Start: 01-20-2024 End: 01-27-2024 take 1 tablet by mouth every six hours as needed for pain oxyCODONE, immediate release, (ROXICODONE) 5 MG tablet Take 1 Tablet (5 mg) by mouth every 6 hours as needed for Pain for up to 7 days 10 Tablet 01/20/2024 01/27/2024 Active Start: 01-20-2024 End: 01-20-2024 take 1 dose by mouth once 2.5 mg, Oral, ONCE, 1 dose, On Tue01/20/24 at 1200 Start: 12-31-2023 End: 01-03-2024 Start: 06-08-2022 End: 05-26-2023 take 1 tablet by mouth every six hours as needed for pain Oxycodone 5 mg Tablet Discontinued 5 mg PO EVERY 6 HOURS NEEDED as needed for Pain 14 4 0 June 08, 2022 May 26, 2023 10:59am Type 2 diabetes mellitus with foot ulcer Type 2 diabetes mellitus with foot ulcer Start: 12-05-2014 End: 12-06-2014 take 10 mg by mouth three times daily as needed for pain Oxycodone 10 MG/0.5 ML Ml Discontinued 10 mg PO THREE TIMES A DAY as needed for Pain December 05, 2014 12:00am December 06, 2014 3:19pm End: 04-06-2016 OXYCODONE HCL 10 MG TABS as needed OXYCODONE HCL [id number] Ne Meier LPN polymyxin b 96605 unt/ml / trimethoprim 1 mg/ml ophthalmic solution (4 sources) Dihydrofolate Reductase Inhibitor Antibacterial, Polymyxin-class Antibacterial Start: 02-18-2023 End: 12-31-2023 Start: 02-18-2023 take 1 drop(s) into the eye(s) every four hours trimethoprim-polymyxin b (POLYTRIM) 94453-6.1 UNIT/ML-% ophthalmic solution instill 1 drop into right eye every 4 hours for 10 days 0 02/18/2023 Active Comment on above: Use 1 Drop in the ri ght eye every 4 hours for 10 days. potassium nitrate 250 mg/ml / silver nitrate 750 mg/ml medicated pad (1 source) Start: 12-21-2023 End: 12-21-2023 pregabalin 100 mg oral capsule (20 sources) Start: 01-30-2024 End: 02-06-2024 take 3 capsules by mouth twice daily 300 mg, Oral, 2 TIMES DAILY, 180 doses, First dose on Tue01/30/24 at 2300, Last dose on 04/29/24 at 0900, OP SIG:Take 3 Capsules (300 mg) by mouth 2 times daily Start: 12-18-2023 End: 12-31-2023 Start: 12-15-2013 End: 09-15-2023 take 1 capsule by mouth twice daily Pregabalin (Lyrica) 300 mg capsule Active 300 mg PO TWICE A DAY March 10, 2017 1:00am nerve pain take 3 capsules by m outh twice daily pregabalin (LYRICA) 100 MG capsule Take 3 Capsules (300 mg) by mouth 2 times daily Active PULSE OXIMETER (1 source) Start: 03-26-2014 End: 06-24-2022 PULSE OXIMETER Disp 1 Device Dx: PE, Hypoxemia with ambulation PULSE OXIMETER Luke Mensah QUEtiapine 50 mg oral tablet (20 sources) Atypical Antipsychotic Start: 01-30-2024 End: 02-06-2024 100 mg, Oral, 2 TIMES DAILY, 180 doses, First dose on Tue01/30/24 at 2300, Last dose on 04/29/24 at 0900, OP SIG:Take (100 mg) by mouth 2 times daily Start: 12-12-2017 End: 12-31-2023 take 1 tablet by mouth at bedtime Quetiapine 100 MG tablet Active 100 mg PO AT BEDTIME December 12, 2017 12:00am sleep Start: 12-15-2013 End: 03-10-2017 take 1 tablet by mouth at bedtime Quetiapine 100 MG tablet Discontinued 100 mg PO AT BEDTIME December 15, 2013 12:00am March 10, 2017 1:09pm Start: 01-23-2013 End: 05-05-2013 take 1 tablet by mouth at bedtime Quetiapine Fumarate (Seroquel Xr) 300 MG Tab.Sr.24h Discontinued 300 mg PO AT BEDTIME January 23, 2013 12:00am May 05, 2013 6:56pm silver sulfADIAZINE 10 mg/ml topical cream (8 sources) Sulfonamide Antibacterial Start: 03-02-2024 End: 03-02-2024 apply 1 dose topically once Topical, ONCE, 1 dose, On Tue03/02/24 at 1130 Start: 02-24-2024 End: 03-25-2024 silver sulfADIAZINE (SILVADE NE) 1 % CREA cream Apply to affected area as needed for Other (Dressing Change) for up to 30 days Patient apply to affected area daily. 400 g 02/24/2024 03/25/2024 Active Start: 02-24-2024 End: 02-24-2024 apply 1 dose topically once Topical, ONCE, 1 dose, On Tue02/24/24 at 1230 Start: 02-17-2024 End: 02-17-2024 apply 1 dose topically once Topical, ONCE, 1 dose, On Tue02/17/24 at 1000 Start: 02-21-2023 End: 03-23-2023 silver sulfADIAZINE (SILVADE NE) 1 % CREA cream Apply to affected area as needed for Other (Dressing Change) for up to 30 days Patient apply to affected area daily. 400 g 0 02/21/2023 03/23/2023 Active 5 ml sodium chloride 9 mg/ml injection (15 sources) Start: 01-30-2024 End: 02-06-2024 Start: 01-30-2024 End: 02-06-2024 Start: 01-30-2024 End: 02-06-2024 Start: 01-30-2024 End: 02-06-2024 2 mL EVERY 8 HOURS, Intraven ous, at 0-999 mL/hr, First dose on Tue01/30/24 at 2200, For 90 days Start: 12-26-2023 End: 12-31-2023 Start: 12-17-2023 End: 12-31-2023 Start: 12-17-2023 End: 12-31-2023 Start: 12-17-2023 End: 12-17-2023 tamsulosin hydrochloride 0.4 mg oral capsule (1 source) alpha-Adrenergic Karina Start: 12-22-2023 End: 12-28-2023 tiotropium 0.018 mg inhalation powder (20 sources) Anticholinergic Start: 12-15-2013 End: 03-10-2017 Tiotropium Cascade 1 PUFF inhaler Discontinued 1 NMA INHALATION DAILY December 15, 2013 12:00am March 10, 2017 1:10pm Start: 12-15-2013 End: 03-10-2017 take 1 puff(s) by inhalation once daily Tiotropium Cascade Discontinued 1 PUFF INHALATION DAILY December 15, 2013 12:00am March 10, 2017 1:10pm Start: 01-23-2013 End: 05-05-2013 take 1 puff(s) by inhalation once daily Tiotropium Cascade (Spiriva With Handihaler) 1 PUFF inhaler Discontinued 1 NMA INHALATION DAILY January 23, 2013 12:00am May 05, 2013 11:39pm Start: 01-23-2013 End: 05-05-2013 take 1 puff(s) by inhalation once daily Tiotropium Cascade (Spiriva With Handihaler) 1 PUFF inhaler Discontinued 1 PUFF INHALATION DAILY January 23, 2013 12:00am May 05, 2013 11:39pm End: 04-06-2016 SPIRIVA HANDIHALER 18 MCG CA PS 1 puff daily TIOTROPIUM BROMIDE MONOHYDRATE [id number] Zeny Noel CNP Trelegy Ellitpa 100 mcg/62.5 mcg/ 25 mcg Inhaler (1 source) Start: 02-01-2024 End: 02-06-2024 1 Puff DAILY, Inhalation, Fi rst dose on Tue02/01/24 at 0900, For 90 days, Take 1 inhalation by mouth once daily., Brand Name: Trelegy Ellipta 100/62.5/25 mcg, Generic name: Fluticasone/Umeclidinum/Vilanter ol, Specific therapeutic reason for requesting non-formulary or high cost medication: Condition where no formulary medication is as safe or effective, Attending Provider: CHAMP WATERMAN triamcinolone acetonide 5 mg/ml topical cream (10 sources) Corticosteroid Start: 05-26-2023 End: 07-03-2024 Triamcinolone Acetonide 0.5 % cream Discontinued NMA TOPICAL May 26, 2023 1:00am July 03, 2024 4:10pm Start: 05-26-2023 Triamcinolone Acetonide Active APPLIC TOPICAL May 26, 2023 1:00am Start: 09-20-2018 End: 01-22-2020 Kenalog (triamcinolone aceto nide) 40 mg/mL suspension for injection Discontinued 90 MG INTRAARTIC ONCE 2.25 September 20, 2018 9:35am January 22, 2020 6:49am 7 actuat umeclidinium 0.0625 mg/actuat dry powder inhaler (20 sources) Anticholinergic Start: 12-19-2023 End: 12-31-2023 Start: 07-11-2023 End: 11-25-2023 take 62.5 ug by inhalation once daily Umeclidinium (Incruse Ellipta) 62.5 mcg/actuation blister with device Discontinued 1 NMA INHALATION DAILY 01 10July 11, 2023 8:19am November 25, 2023 10:44am breathing Start: 07-11-2023 End: 11-25-2023 take 62.5 ug by inhalation once daily Umeclidinium (Incruse Ellipta) 62.5 mcg/actuation blister with device Discontinued 1 NMA INHALATION DAILY July 11, 2023 8:19am November 25, 2023 10:44am Start: 07-11-2023 take 62.5 ug by inha lation once daily Umeclidinium (Incruse Ellipta) 62.5 mcg/actuation blister with device Active 1 INH INHALATION DAILY July 11, 2023 8:19am Start: 01-31-2023 INCRUSE ELLIPT A 62.5 MCG/ACT AEPB 01/31/2023 Active Start: 01-31-2023 Start: 12-30-2022 End: 07-11-2023 take 62.5 ug by inhalation once daily Umeclidinium (Incruse Ellipta) 62.5 mcg/actuation blister with device Discontinued 1 NMA INHALATION DAILY 01 10December 30, 2022 11:04am July 11, 2023 8:19am breathing Start: 12-30-2022 End: 07-11-2023 take 62.5 ug by inhalation once daily Umeclidinium (Incruse Ellipta) 62.5 mcg/actuation blister with device Discontinued 1 NMA INHALATION DAILY December 30, 2022 11:04am July 11, 2023 8:19am Start: 12-30-2022 End: 07-11-2023 take 62.5 ug by inhalation once daily Umeclidinium (Incruse Ellipta) 62.5 mcg/actuation blister with device Discontinued 1 INH INHALATION DAILY December 30, 2022 11:04am July 11, 2023 8:19am Start: 12-30-2022 take 62.5 ug by inha lation once daily Umeclidinium (Incruse Ellipta) 62.5 mcg/actuation blister with device Active 1 INH INHALATION DAILY December 30, 2022 10:04am Start: 12-30-2022 take 62.5 ug by inha lation once daily Umeclidinium (Incruse Ellipta) 62.5 mcg/actuation blister with device Active 1 INH INHALATION DAILY December 30, 2022 11:04am Start: 12-30-2022 take 62.5 ug by inha lation once daily Umeclidinium (Incruse Ellipta) 62.5 mcg/actuation blister with device Active 1 INH INHALATION DAILY December 30, 2022 11:04am Start: 05-31-2022 End: 12-30-2022 take 62.5 ug by inhalation once daily Umeclidinium (Incruse Ellipta) 62.5 mcg/actuation blister with device Discontinued 1 NMA INHALATION DAILY May 31, 2022 3:28pm December 30, 2022 11:04am Start: 05-31-2022 End: 12-30-2022 take 62.5 ug by inhalation once daily Umeclidinium (Incruse Ellipta) 62.5 mcg/actuation blister with device Discontinued 1 INH INHALATION DAILY May 31, 2022 2:28pm December 30, 2022 10:04am Start: 05-31-2022 End: 12-30-2022 take 62.5 ug by inhalation once daily Umeclidinium (Incruse Ellipta) 62.5 mcg/actuation blister with device Discontinued 1 INH INHALATION DAILY May 31, 2022 3:28pm December 30, 2022 11:04am Start: 05-31-2022 take 62.5 ug by inha lation once daily Umeclidinium (Incruse Ellipta) 62.5 mcg/actuation blister with device Active 1 INH INHALATION DAILY May 31, 2022 2:28pm Start: 04-29-2022 End: 05-31-2022 take 62.5 ug by inhalation once daily Umeclidinium 62.5 mcg/actuation blister with device Discontinued 1 NMA INHALATION DAILY 30 April 29, 2022 2:52pm May 31, 2022 3:28pm Chronic obstructive pulmonary disease with (acute) exacerbation Start: 04-29-2022 End: 05-31-2022 take 62.5 ug by inhalation once daily Umeclidinium 62.5 mcg/actuation blister with device Discontinued 1 NMA INHALATION DAILY April 29, 2022 2:52pm May 31, 2022 3:28pm Start: 04-29-2022 End: 05-31-2022 Umeclidinium Discontinued 1 INH INHALATION DAILY April 29, 2022 2:52pm May 31, 2022 3:28pm Start: 04-29-2022 End: 05-31-2022 Umeclidinium Discontinued 1 INH INHALATION DAILY April 29, 2022 1:52pm May 31, 2022 2:28pm Start: 04-29-2022 Umeclidinium A ctive 1 INH INHALATION DAILY April 29, 2022 1:52pm Start: 02-19-2022 End: 04-29-2022 take 62.5 ug by inhalation once daily Umeclidinium 62.5 mcg/actuation blister with device Discontinued 1 NMA INHALATION DAILY 01 07February 19, 2022 4:18pm April 29, 2022 2:53pm Chronic obstructive pulmonary disease with (acute) exacerbation Start: 02-19-2022 End: 04-29-2022 take 62.5 ug by inhalation once daily Umeclidinium 62.5 mcg/actuation blister with device Discontinued 1 NMA INHALATION DAILY February 19, 2022 4:18pm April 29, 2022 2:53pm Start: 02-19-2022 End: 04-29-2022 Umeclidinium Discontinued 1 INH INHALATION DAILY February 19, 2022 4:18pm April 29, 2022 2:53pm Start: 02-19-2022 End: 04-29-2022 Umeclidinium Discontinued 1 INH INHALATION DAILY February 19, 2022 3:18pm April 29, 2022 1:53pm Start: 02-19-2022 Umeclidinium A ctive 1 INH INHALATION DAILY February 19, 2022 3:18pm Start: 01-06-2022 End: 02-19-2022 take 62.5 ug by inhalation once daily Umeclidinium 62.5 mcg/actuation blister with device Discontinued 1 NMA INHALATION DAILY January 06, 2022 1:20pm February 19, 2022 4:19pm Chronic obstructive pulmonary disease with (acute) exacerbation Start: 11-27-2021 End: 01-06-2022 take 62.5 ug by inhalation once daily Umeclidinium 62.5 mcg/actuation blister with device Discontinued 1 NMA INHALATION DAILY November 27, 2021 10:38am January 06, 2022 1:20pm Chronic obstructive pulmonary disease with (acute) exacerbation Start: 11-27-2021 End: 01-06-2022 take 62.5 ug by inhalation once daily Umeclidinium 62.5 mcg/actuation blister with device Discontinued 1 NMA INHALATION DAILY November 27, 2021 10:38am January 06, 2022 1:20pm Start: 11-27-2021 End: 01-06-2022 Umeclidinium Discontinued 1 INH INHALATION DAILY November 27, 2021 9:38am January 06, 2022 12:20pm Start: 11-27-2021 End: 01-06-2022 Umeclidinium Discontinued 1 INH INHALATION DAILY November 27, 2021 10:38am January 06, 2022 1:20pm Start: 11-27-2021 Umeclidinium A ctive 1 INH INHALATION DAILY November 27, 2021 10:38am Start: 07-29-2021 End: 11-27-2021 take 62.5 ug by inhalation once daily Umeclidinium 62.5 mcg/actuation blister with device Discontinued 62.5 ug INHALATION DAILY 31 08July 29, 2021 12:37pm November 27, 2021 10:44am Chronic obstructive pulmonary disease with (acute) exacerbation Start: 07-29-2021 End: 11-27-2021 take 62.5 ug by inhalation once daily Umeclidinium 62.5 mcg/actuation blister with device Discontinued 62.5 ug INHALATION DAILY July 29, 2021 12:37pm November 27, 2021 10:44am Start: 07-29-2021 End: 11-27-2021 take 62.5 ug by inhalation once daily Umeclidinium Discontinued 62.5 MCG INHALATION DAILY July 29, 2021 11:37am November 27, 2021 9:44am Start: 07-29-2021 End: 11-27-2021 take 62.5 ug by inhalation once daily Umeclidinium Discontinued 62.5 MCG INHALATION DAILY July 29, 2021 12:37pm November 27, 2021 10:44am Start: 07-29-2021 take 62.5 ug by inha lation once daily Umeclidinium Active 62.5 MCG INHALATION DAILY July 29, 2021 12:37pm Start: 02-10-2021 End: 07-29-2021 take 62.5 ug by inhalation once daily Umeclidinium 62.5 mcg/actuation blister with device Discontinued 62.5 ug INHALATION DAILY 31 08February 10, 2021 12:28pm July 29, 2021 12:38pm Chronic obstructive pulmonary disease with (acute) exacerbation Start: 02-10-2021 End: 07-29-2021 take 62.5 ug by inhalation once daily Umeclidinium 62.5 mcg/actuation blister with device Discontinued 62.5 ug INHALATION DAILY February 10, 2021 12:28pm July 29, 2021 12:38pm Start: 02-10-2021 End: 07-29-2021 take 62.5 ug by inhalation once daily Umeclidinium Discontinued 62.5 MCG INHALATION DAILY February 10, 2021 11:28am July 29, 2021 11:38am Start: 02-10-2021 End: 07-29-2021 take 62.5 ug by inhalation once daily Umeclidinium Discontinued 62.5 MCG INHALATION DAILY February 10, 2021 12:28pm July 29, 2021 12:38pm Start: 02-10-2021 take 62.5 ug by inha lation once daily Umeclidinium Active 62.5 MCG INHALATION DAILY February 10, 2021 12:28pm Start: 01-15-2021 End: 02-10-2021 take 62.5 ug by inhalation once daily Umeclidinium 62.5 mcg/actuation blister with device Discontinued 62.5 ug INHALATION DAILY 30 January 15, 2021 3:27pm February 10, 2021 12:28pm Chronic obstructive pulmonary disease with (acute) exacerbation Start: 01-15-2021 End: 02-10-2021 take 62.5 ug by inhalation once daily Umeclidinium 62.5 mcg/actuation blister with device Discontinued 62.5 ug INHALATION DAILY January 15, 2021 3:27pm February 10, 2021 12:28pm Start: 01-15-2021 End: 02-10-2021 take 62.5 ug by inhalation once daily Umeclidinium Discontinued 62.5 MCG INHALATION DAILY January 15, 2021 2:27pm February 10, 2021 11:28am Start: 01-15-2021 End: 02-10-2021 take 62.5 ug by inhalation once daily Umeclidinium Discontinued 62.5 MCG INHALATION DAILY January 15, 2021 3:27pm February 10, 2021 12:28pm Start: 07-18-2020 End: 01-15-2021 take 62.5 ug by inhalation once daily Umeclidinium 62.5 mcg/actuation blister with device Discontinued 62.5 ug INHALATION DAILY 30 July 18, 2020 3:44pm January 15, 2021 3:28pm Chronic obstructive pulmonary disease with (acute) exacerbation Start: 07-18-2020 End: 01-15-2021 take 62.5 ug by inhalation once daily Umeclidinium 62.5 mcg/actuation blister with device Discontinued 62.5 ug INHALATION DAILY July 18, 2020 3:44pm January 15, 2021 3:28pm Start: 07-18-2020 End: 01-15-2021 take 62.5 ug by inhalation once daily Umeclidinium Discontinued 62.5 MCG INHALATION DAILY July 18, 2020 2:44pm January 15, 2021 2:28pm Start: 07-18-2020 End: 01-15-2021 take 62.5 ug by inhalation once daily Umeclidinium Discontinued 62.5 MCG INHALATION DAILY July 18, 2020 3:44pm January 15, 2021 3:28pm Start: 02-01-2020 End: 07-18-2020 take 62.5 ug by inhalation once daily Umeclidinium 62.5 mcg/actuation blister with device Discontinued 62.5 ug INHALATION DAILY 31 08February 01, 2020 10:53am July 18, 2020 3:45pm Chronic obstructive pulmonary disease with (acute) exacerbation Start: 02-01-2020 End: 07-18-2020 take 62.5 ug by inhalation once daily Umeclidinium 62.5 mcg/actuation blister with device Discontinued 62.5 ug INHALATION DAILY February 01, 2020 10:53am July 18, 2020 3:45pm Start: 02-01-2020 End: 07-18-2020 take 62.5 ug by inhalation once daily Umeclidinium Discontinued 62.5 MCG INHALATION DAILY February 01, 2020 9:53am July 18, 2020 2:45pm Start: 02-01-2020 End: 07-18-2020 take 62.5 ug by inhalation once daily Umeclidinium Discontinued 62.5 MCG INHALATION DAILY February 01, 2020 10:53am July 18, 2020 3:45pm Start: 01-22-2020 End: 02-01-2020 take 62.5 ug by inhalation once daily Umeclidinium 62.5 mcg/actuation blister with device Discontinued 62.5 ug INHALATION DAILY January 22, 2020 6:50am February 01, 2020 10:53am Chronic obstructive pulmonary disease with (acute) exacerbation Start: 01-22-2020 End: 02-01-2020 take 62.5 ug by inhalation once daily Umeclidinium 62.5 mcg/actuation blister with device Discontinued 62.5 ug INHALATION DAILY January 22, 2020 6:50am February 01, 2020 10:53am Start: 01-22-2020 End: 02-01-2020 take 62.5 ug by inhalation once daily Umeclidinium Discontinued 62.5 MCG INHALATION DAILY January 22, 2020 5:50am February 01, 2020 9:53am Start: 01-22-2020 End: 02-01-2020 take 62.5 ug by inhalation once daily Umeclidinium Discontinued 62.5 MCG INHALATION DAILY January 22, 2020 6:50am February 01, 2020 10:53am Start: 12-25-2019 End: 01-22-2020 take 62.5 ug by inhalation once daily Umeclidinium 62.5 mcg/actuation blister with device Discontinued 62.5 ug INHALATION DAILY December 25, 2019 9:18am January 22, 2020 6:51am Start: 12-25-2019 End: 01-22-2020 take 62.5 ug by inhalation once daily Umeclidinium 62.5 mcg/actuation blister with device Discontinued 62.5 ug INHALATION DAILY December 25, 2019 9:18am January 22, 2020 6:51am Start: 12-25-2019 End: 01-22-2020 take 62.5 ug by inhalation once daily Umeclidinium Discontinued 62.5 MCG INHALATION DAILY December 25, 2019 8:18am January 22, 2020 5:51am Start: 12-25-2019 End: 01-22-2020 take 62.5 ug by inhalation once daily Umeclidinium Discontinued 62.5 MCG INHALATION DAILY December 25, 2019 9:18am January 22, 2020 6:51am Start: 06-05-2019 End: 12-25-2019 take 62.5 ug by inhalation once daily Umeclidinium 62.5 mcg/actuation blister with device Discontinued 62.5 ug INHALATION DAILY 01 10June 05, 2019 10:50am December 25, 2019 9:19am Start: 06-05-2019 End: 12-25-2019 take 62.5 ug by inhalation once daily Umeclidinium 62.5 mcg/actuation blister with device Discontinued 62.5 ug INHALATION DAILY June 05, 2019 10:50am December 25, 2019 9:19am Start: 06-05-2019 End: 12-25-2019 take 62.5 ug by inhalation once daily Umeclidinium Discontinued 62.5 MCG INHALATION DAILY June 05, 2019 9:50am December 25, 2019 8:19am Start: 06-05-2019 End: 12-25-2019 take 62.5 ug by inhalation once daily Umeclidinium Discontinued 62.5 MCG INHALATION DAILY June 05, 2019 10:50am December 25, 2019 9:19am Start: 11-14-2018 End: 06-05-2019 take 62.5 ug by inhalation once daily Umeclidinium 62.5 mcg/actuation blister with device Discontinued 62.5 ug INHALATION DAILY 01 10November 14, 2018 2:39pm June 05, 2019 10:51am Start: 11-14-2018 End: 06-05-2019 take 62.5 ug by inhalation once daily Umeclidinium 62.5 mcg/actuation blister with device Discontinued 62.5 ug INHALATION DAILY November 14, 2018 2:39pm June 05, 2019 10:51am Start: 11-14-2018 End: 06-05-2019 take 62.5 ug by inhalation once daily Umeclidinium Discontinued 62.5 MCG INHALATION DAILY November 14, 2018 1:39pm June 05, 2019 9:51am Start: 11-14-2018 End: 06-05-2019 take 62.5 ug by inhalation once daily Umeclidinium Discontinued 62.5 MCG INHALATION DAILY November 14, 2018 2:39pm June 05, 2019 10:51am Start: 05-18-2018 End: 11-14-2018 take 62.5 ug by inhalation once daily Umeclidinium 62.5 mcg/actuation blister with device Discontinued 62.5 ug INHALATION DAILY 01 10May 18, 2018 10:38am November 14, 2018 2:39pm Start: 05-18-2018 End: 11-14-2018 take 62.5 ug by inhalation once daily Umeclidinium 62.5 mcg/actuation blister with device Discontinued 62.5 ug INHALATION DAILY May 18, 2018 10:38am November 14, 2018 2:39pm Start: 05-18-2018 End: 11-14-2018 take 62.5 ug by inhalation once daily Umeclidinium Discontinued 62.5 MCG INHALATION DAILY May 18, 2018 9:38am November 14, 2018 1:39pm Start: 05-18-2018 End: 11-14-2018 take 62.5 ug by inhalation once daily Umeclidinium Discontinued 62.5 MCG INHALATION DAILY May 18, 2018 10:38am November 14, 2018 2:39pm Start: 11-01-2017 End: 05-18-2018 take 62.5 ug by inhalation once daily Umeclidinium 62.5 mcg/actuation blister with device Discontinued 62.5 ug INHALATION DAILY 01 10November 01, 2017 3:20pm May 18, 2018 10:38am Start: 11-01-2017 End: 05-18-2018 take 62.5 ug by inhalation once daily Umeclidinium 62.5 mcg/actuation blister with device Discontinued 62.5 ug INHALATION DAILY November 01, 2017 3:20pm May 18, 2018 10:38am Start: 11-01-2017 End: 05-18-2018 take 62.5 ug by inhalation once daily Umeclidinium Discontinued 62.5 MCG INHALATION DAILY November 01, 2017 2:20pm May 18, 2018 9:38am Start: 11-01-2017 End: 05-18-2018 take 62.5 ug by inhalation once daily Umeclidinium Discontinued 62.5 MCG INHALATION DAILY November 01, 2017 3:20pm May 18, 2018 10:38am Start: 04-22-2017 End: 11-01-2017 take 62.5 ug by inhalation once daily Umeclidinium 62.5 MCG blister with device Discontinued 62.5 ug INHALATION DAILY 01 10April 22, 2017 11:12am November 01, 2017 3:20pm Start: 06-30-2016 End: 04-22-2017 take 62.5 ug by inhalation once daily Umeclidinium Discontinued 62.5 MCG IH DAILY June 30, 2016 6:05pm April 22, 2017 11:12am Start: 06-30-2016 End: 04-22-2017 take 62.5 ug by inhalation once daily Umeclidinium 62.5 MCG blister with device Discontinued 62.5 ug IH DAILY June 30, 2016 12:00am April 22, 2017 11:12am Start: 06-30-2016 End: 04-22-2017 take 62.5 ug by inhalation once daily Umeclidinium Discontinued 62.5 MCG IH DAILY June 29, 2016 11:00pm April 22, 2017 10:12am Start: 06-30-2016 End: 04-22-2017 take 62.5 ug by inhalation once daily Umeclidinium Discontinued 62.5 MCG IH DAILY June 30, 2016 12:00am April 22, 2017 11:12am Start: 01-21-2016 take 1 puff(s) by in halation once daily INCRUSE ELLIPTA 62.5 MCG/INH AEPB 1 puff daily UMECLIDINIUM BROMIDE [id number] Zeny Noel CNP varenicline 1 mg oral tablet (20 sources) Partial Cholinergic Nicotinic Agonist Start: 08-02-2013 End: 10-15-2013 Varenicline Tartrate (Chantix) 1 MG tablet Discontinued 0.5 mg PO DAILY August 02, 2013 12:00am October 15, 2013 10:41am Start: 08-02-2013 End: 10-15-2013 take 1 tablet by mouth once daily Varenicline (Chantix) 1 MG tablet Discontinued 0.5 MG PO DAILY August 02, 2013 12:00am October 15, 2013 10:41am warfarin sodium 6 mg oral tablet (20 sources) Vitamin K Antagonist Start: 12-15-2013 End: 03-26-2014 take 1 tablet by mouth once daily Warfarin (Coumadin (Pbkc)) 6 MG tablet Discontinued 6 mg PO DAILY@1700 March 17, 2014 1:00am March 18, 2014 3:32pm water 1000 mg/ml injectable solution (2 sources) Start: 01-30-2024 End: 02-06-2024 Start: 12-26-2023 End: 12-31-2023 XEROFORM PETROLATUM ROLL 4X 9' (XEROFORM) 1 Each (3 sources) Start: 02-24-2024 End: 02-24-2024 1 Each, Topical, ONCE, 1 dos e, On Tue02/24/24 at 1230 Start: 02-17-2024 End: 02-17-2024 1 Each, Topical, ONCE, 1 dos e, On Tue02/17/24 at 1000 Start: 02-17-2024 End: 02-17-2024 1 Each, Topical, ONCE, 1 dos e, On Tue02/17/24 at 1000 XEROFORM PETROLATUM ROLL 4X 9' (XEROFORM) MISC 4 x 108 roll dressing (3 sources) Start: 02-29-2024 End: 03-02-2024 XEROFORM PETROLATUM ROLL 4X 9' (XEROFORM) MISC 4 x 108 roll dressing Apply to affected area as needed for Other (Dressing Change) for up to 30 days 1 Each 02/29/2024 03/02/2024 Discontinued (* Remove (Not on AVS)) Start: 02-24-2024 End: 03-02-2024 XEROFORM PETROLATUM ROLL 4X 9' (XEROFORM) MISC 4 x 108 roll dressing Apply to affected area as needed for Other (Dressing Change) for up to 30 days 1 Each 02/24/2024 03/02/2024 Discontinued (* Remove (Not on AVS)) Start: 02-24-2024 End: 03-25-2024 XEROFORM PETROLATUM ROLL 4X 9' (XEROFORM) MISC 4 x 108 roll dressing Apply to affected area as needed for Other (Dressing Change) for up to 30 days 1 Each 02/24/2024 03/25/2024 Active (1 source) Start: 12-28-2023 End: 12-31-2023 (3 sources) Start: 12-19-2023 End: 12-31-2023 [Order 1 Start] Name: oxyCOD ONE (immediate release) (ROXICODONE) CUT tablet 2.5 mg Signed Summary: 2.5 mg, Oral, EVERY 4 HOURS PRN, Starting on Tue12/19/23 at 1233, Until 12/31/23 at 1550, Moderate Pain = Pain Score 4-6 [Order 1 End] [Order 2 Start] Name: oxyCODONE (immediate release) (ROXICODONE) tablet 5 mg Signed Summary: 5 mg, Oral, EVERY 4 HOURS PRN, Starting on Tue12/19/23 at 1233, Until 12/31/23 at 1550, Severe Pain = Pain Score 7-10 [Order 2 End] Start: 12-18-2023 End: 12-19-2023 Start: 12-18-2023 End: 12-31-2023 [Order 1 Start] Name: Multiv itamin mineral supplement (CENTRUM) tablet 1 Tablet Signed Summary: 1 Tablet, Oral, DAILY, 90 doses, First dose on Tue12/18/23 at 0900, Last dose on Tue03/16/24 at 0900, Route per patient preference [Order 1 End] [Order 2 Start] Name: multivitamin (CENTRUM) oral liquid 15 mL Signed Summary: 15 mL, Oral, DAILY, 90 doses, First dose on Tue12/18/23 at 0900, Last dose on Tue03/16/24 at 0900, Route per patient preference [Order 2 End] (1 source) Start: 12-18-2023 End: 12-31-2023 Problems Active Problems Problem Classification Problem Date Documented Da te Episodic/Chronic Abdominal pain (3 sources) Indigestion; Translations: [Epigastric pain] 07-30-2024 Episodic Acquired foot deformities (14 sources) Toe joint rigid; Translations: [Hallux rigidus, left foot] 06-05-2022 Chronic Acquired foot deformities (14 sources) Toe joint rigid; Translations: [Hallux rigidus, right foot] 06-04-2022 Chronic Acute bronchitis (3 sources) Acute bronchitis; Translations: [Acute bronchitis, unspecified] 07-30-2024 Episodic Allergic reactions (1 source) Contact hand eczema 05-03-2023 Episodic Anxiety disorders (20 sources) Mixed anxiety and depressive disorder; Translations: [Anxiety] Onset: 4 05-22-2014 Chronic Chronic obstructive pulmonary disease and bronchiectasis (20 sources) Chronic obstructive lung disease; Translations: [Chronic obstructive pulmonary disease with (acute) exacerbation] Onset: 5 05-22-2014 Chronic Chronic ulcer of skin (20 sources) Non-pressure chronic ulcer of other part of left foot with fat layer exposed; Translations: [Non-pressure chronic ulcer of other part of left foot with fat layer exposed] 06-05-2022 Chronic Congestive heart failure; nonhypertensive (12 sources) Chronic heart failure co-occurrent with normal ejection fraction; Translations: [Chronic diastolic (congestive) heart failure] Onset: 3 10-05-2022 Chronic Deficiency and other anemia (2 sources) Iron deficiency anemia 06-07-2023 Episodic Diabetes mellitus with complications (20 sources) Type 2 diabetes mellitus with ulcer; Translations: [Type 2 diabetes mellitus with foot ulcer] Onset: 4 06-04-2022 Chronic Diabetes mellitus without complication (20 sources) Diabetes mellitus; Translations: [Type 2 diabetes mellitus] Onset: 3 11-15-2018 Chronic Diseases of white blood cells (3 sources) Leukocytosis; Translations: [Elevated white blood cell count, unspecified] 07-30-2024 Chronic Disorders of lipid metabolism (20 sources) Mixed hyperlipidemia; Translations: [Hyperlipidemia] Onset: 3 04-06-2021 Chronic Comment on above: The patient is curre ntly tolerating pravastatin this is managed to the primary service and should be continued on her current dose target LDL cholesterol is less than 100. E Codes: Fall (7 sources) Fall; Translations: [Unspecified fall, initial encounter] 06-10-2023 Episodic E Codes: Natural/environment (1 source) Bite of nonvenomous arthropod; Translations: [Bitten or stung by nonvenomous insect and other nonvenomous arthropods, initial encounter] Onset: 2 Episodic Esophageal disorders (20 sources) Gastroesophageal reflux disease; Translations: [Gastro-esophageal reflux disease without esophagitis] Onset: 4 05-22-2014 Chronic Essential hypertension (20 sources) Essential hypertension; Translations: [Hypertensive disorder] Onset: 6 12-01-2015 Chronic Comment on above: CONTROLLED ON MED Fever of unknown origin (3 sources) Fever; Translations: [Fever, unspecified] 07-30-2024 Episodic Genitourinary symptoms and ill-defined conditions (10 sources) Urinary incontinence 11-15-2018 Chronic Inflammation; infection of eye (except that caused by tuberculosis or sexually transmitteddisease) (1 source) Bacterial conjunctivitis; Translations: [Unspecified conjunctivitis] 02-18-2023 Episodic Miscellaneous mental health disorders (10 sources) Primary insomnia 07-09-2019 Chronic Mood disorders (1 source) Major depressive disorder; Translations: [Major depressive disorder, single episode, unspecified] Onset: 3 10-05-2022 Chronic Mycoses (17 sources) Candidiasis of vagina; Translations: [Candidiasis of vagina] 04-29-2022 Episodic Osteoarthritis (15 sources) Osteoarthritis of hip; Translations: [Osteoarthritis of right hip joint] Onset: 6 12-01-2015 Chronic Other acquired deformities (2 sources) Mallet finger 05-03-2023 Episodic Other aftercare (11 sources) Long-term current use of anticoagulant; Translations: [[facility] (current) use of anticoagulants] Onset: 4 12-18-2023 Episodic Other connective tissue disease (11 sources) Fibromyositis; Translations: [Fibromyalgia] Onset: 4 02-20-2014 Episodic Other connective tissue disease (10 sources) Muscle pain 04-01-2021 Episodic Other connective tissue disease (20 sources) Fibromyalgia; Translations: [Fibromyalgia] 12-12-2017 Episodic Other fractures (2 sources) Closed fracture of one rib; Translations: [Fracture of one rib, unspecified side, initial encounter for closed fracture] Onset: 2 Episodic Other fractures (1 source) Fracture of rib 10-31-2021 Episodic Other inflammatory condition of skin (20 sources) Itching ; Translations: [Pruritus, unspecified] Onset: 7 09-08-2016 Episodic Other inflammatory condition of skin (10 sources) Lichen simplex chronicus 06-18-2020 Episodic Other injuries and conditions due to external causes (7 sources) Injury of right ankle; Translations: [Unspecified injury of right ankle, initial encounter] 06-10-2023 Episodic Other lower respiratory disease (20 sources) Dyspnea; Translations: [Shortness of breath] Onset: 4 02-20-2014 Episodic Other lower respiratory disease (7 sources) Nodule of lung; Translations: [Solitary pulmonary nodule] 05-09-2024 Episodic Comment on above: 1.2 cm X 1.5 cm TONY Other lower respiratory disease (2 sources) Solitary pulmonary nodule; Translations: [Solitary pulmonary nodule] Onset: 5 Episodic Other nervous system disorders (4 sources) History of clinical finding in subject; Translations: [Personal history of other diseases of the nervous system and sense organs] 05-15-2024 Episodic Other non-traumatic joint disorders (5 sources) Shoulder pain 12-31-2020 Episodic Other non-traumatic joint disorders (2 sources) Finding of movement of toe; Translations: [Stiffness of left foot, not elsewhere classified] 02-13-2024 Episodic Other nutritional; endocrine; and metabolic disorders (20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 total leukocytesOrdered By: Moo Watkins on 07-21-2024 Lymphocytes/100 WBC Auto (Unsp spec) 11.0 % Low 19-41 [facility] BUN/creatinine ratioOrdered By: Moo Watkins on 07-21-2024 Urea nitrogen/Creatinine [Mass ratio] 29.7 mg/mg High 10-20 [facility] Basophil percentageOrdered B y: Moo Watkins on 07-21-2024 Basophils/100 WBC (Bld) 0.2 % 0-1 [facility] Bilirubin Test strip Ql (U)O rdered By: Moo Watkins on 07-21-2024 Bilirubin Ql (U) Negative Negative [facility] Bilirubin, totalOrdered By: Moo Watkins on 07-21-2024 Bilirubin [Mass/Vol] 0.21 mg/dL 0.00-1.30 [facility] Blood cultureOrdered By: Trip Watkins on 07-21-2024 Bacteria identified Cx Nom (Bld) No growth in 5 days. [facility] Bacteria identified Cx Nom (Bld) No growth in 5 days. [facility] Blood manual differential co mment interpretation (narrative result)Ordered By: Moo Watkins on 07-21-2024 Manual differential comment Murtaza (Bld) [Interp] SCANNED [facility] Blood polychromasia detectio n by light microscopyOrdered By: Moo Watkins on 07-21-2024 Polychromasia LM Ql (Bld) RARE [facility] Blood stomatocytes detection by light microscopyOrdered By: Moo Watkins on 07-21-2024 Stomatocytes LM Ql (Bld) [facility] CBC W/Diff, Automatedon 07-03 Anisocytosis Ql (Bld) 2+ Normal [facility] Comment on above: Performed By: #### L 100.0100, M200.1000, L503.6005, L500.4050, L300.4310, L300.3900 ####[facility] [address] [place], [place], [id number] MACROCYTOSIS RARE Normal [facility] Comment on above: Performed By: #### L 100.0100, M200.1000, L503.6005, L500.4050, L300.4310, L300.3900 ####[facility] [address] [place], [place], [phone] MICROCYTIC 1+ Normal [facility] Comment on above: Performed By: #### L 100.0100, M200.1000, L503.6005, L500.4050, L300.4310, L300.3900 ####[facility] [address] [place], [place], [phone] POLYCHROMASIA RARE Normal [facility] Comment on above: Performed By: #### L 100.0100, M200.1000, L503.6005, L500.4050, L300.4310, L300.3900 ####[facility] [address] [place], [address] STOMATOCYTE RARE Normal [facility] Comment on above: Performed By: #### L 100.0100, M200.1000, L503.6005, L500.4050, L300.4310, L300.3900 ####[facility] [address] [place], [address] SMEAR COMMENT SCANNED Normal [facility] Comment on above: Performed By: #### L 100.0100, M200.1000, L503.6005, L500.4050, L300.4310, L300.3900 ####[facility] [address] [place], [address] Carbon dioxide, total [Moles /volume] in Central venous bloodOrdered By: Moo Watkins on 07-21-2024 CO2 [Moles/Vol] 21.3 mmol/L 21.0-32.0 [facility] Chest 1 View (Portable)on Chest 1 View (Portable) [facility] Imaging Services [address] [place] [address] Chest 1 View (Portable) MR#: [id number] Acct: [id number] Name: KAMINI IRBY Rep #: [id number] : 1965 F 59 From: Shannon Deshpande DO PCP: Dr. Pk Sloan, DO Status: REG ER Study: Chest 1 View (Portable) Date of Exam: 07/21/24 Exam# [id number] Ordering Dr: Moo Watkins MD PROCEDURE: CHEST 1 VIEW (PORTABLE) 07/21/2024 REASON FOR EXAM: COUGH SOB CP TECHNIQUE: Frontal view of the chest. COMPARISON: None FINDINGS: Hardware: None Heart: Heart size is moderately enlarged. Lungs: Prominent bilateral interstitial markings with bibasilar effusion/atelectasis. No pneumothorax. Bones: Degenerative changes are identified within the thoracic spine. Other: RAD/Chest 1 View (Portable) IMPRESSION: Cardiomegaly with pulmonary vascular congestion. Bibasilar effusion/atelectasis. [facility] CC: Dr. Moo Watkins MD; Dr. Pk Sloan DO Cotton Farmer: Signed Normal [facility] Chloride assayOrdered By: Ayana Watkins on 07-21-2024 Chloride [Moles/Vol] 101 mmol/L 98-108 [facility] Comprehensive Metabolic Prof ilon 07-21-2024 Albumin [Mass/Vol] 3.9 g/dL Normal 3.5-5.0 [facility] Comment on above: Performed By: #### L 100.0100, M200.1000, L503.6005, L500.4050, L300.4310, L300.3900 ####[facility] [address] [place], [address] Albumin/Globulin [Mass ratio] 1.3 {ratio} Normal 0.9-2.4 [facility] Comment on above: Performed By: #### L 100.0100, M200.1000, L503.6005, L500.4050, L300.4310, L300.3900 ####[facility] [address] [place], [address] ALK PHOS 95 U/L Normal 35-104 [facility] Comment on above: Performed By: #### L 100.0100, M200.1000, L503.6005, L500.4050, L300.4310, L300.3900 ####[facility] [address] [place], [address] ALT [Catalytic activity/Vol] 23 U/L Normal <=34 [facility] Comment on above: Performed By: #### L 100.0100, M200.1000, L503.6005, L500.4050, L300.4310, L300.3900 ####[facility] [address] [place], [address] AST [Catalytic activity/Vol] 16 U/L Normal <=31 [facility] Comment on above: Performed By: #### L 100.0100, M200.1000, L503.6005, L500.4050, L300.4310, L300.3900 ####[facility] [address] [place], [address] Bilirubin [Mass/Vol] 0.21 mg/dL Normal 0.00-1.30 [facility] Comment on above: Performed By: #### L 100.0100, M200.1000, L503.6005, L500.4050, L300.4310, L300.3900 ####[facility] [address] [place], [address] BUN/CRE 29.7 RATIO High 10-20 [facility] Comment on above: Performed By: #### L 100.0100, M200.1000, L503.6005, L500.4050, L300.4310, L300.3900 ####[facility] [address] [place], [address] Calcium [Mass/Vol] 9.1 mg/dL Normal 7.6-11.0 [facility] Comment on above: Performed By: #### L 100.0100, M200.1000, L503.6005, L500.4050, L300.4310, L300.3900 ####[facility] [address] [place], [address] Chloride [Moles/Vol] 101 mmol/L Normal 98-108 [facility] Comment on above: Performed By: #### L 100.0100, M200.1000, L503.6005, L500.4050, L300.4310, L300.3900 ####[facility] [address] [place], [address] CO2 [Moles/Vol] 21.3 mmol/L Normal 21.0-32.0 [facility] Comment on above: Performed By: #### L 100.0100, M200.1000, L503.6005, L500.4050, L300.4310, L300.3900 ####[facility] [address] [place], [address] Creatinine [Mass/Vol] 0.93 mg/dL Normal 0.70-1.20 [facility] Comment on above: Performed By: #### L 100.0100, M200.1000, L503.6005, L500.4050, L300.4310, L300.3900 ####[facility] [address] [place], [address] ECRCL 82.75 ml/min Normal 50-250 [facility] Comment on above: Performed By: #### L 100.0100, M200.1000, L503.6005, L500.4050, L300.4310, L300.3900 ####[facility] [address] [place], [address] GAP 14 Normal 5-15 [facility] Comment on above: Performed By: #### L 100.0100, M200.1000, L503.6005, L500.4050, L300.4310, L300.3900 ####[facility] [address] [place], [address] GFR/1.73 sq M.predicted among non-blacks MDRD (S/P/Bld) [Vol rate/Area] 72 mL/min/{1.73_m2} Normal >60 [facility] Comment on above: Result Comment: mL/m in/1.73m2 CKD-EPI Creatinine Equation (2020) Performed By: #### L 100.0100, M200.1000, L503.6005, L500.4050, L300.4310, L300.3900 ####[facility] [address] [place], [address] Globulin (S) [Mass/Vol] 3.1 g/dL Normal 2.2-4.2 [facility] Comment on above: Performed By: #### L 100.0100, M200.1000, L503.6005, L500.4050, L300.4310, L300.3900 ####[facility] [address] [place], [address] Glucose [Mass/Vol] 174 mg/dL High 70-99 [facility] Comment on above: Performed By: #### L 100.0100, M200.1000, L503.6005, L500.4050, L300.4310, L300.3900 ####[facility] [address] [place], [address] Potassium [Moles/Vol] 4.3 mmol/L Normal 3.3-5.1 [facility] Comment on above: Performed By: #### L 100.0100, M200.1000, L503.6005, L500.4050, L300.4310, L300.3900 ####[facility] [address] [place], [address] Sodium [Moles/Vol] 136 mmol/L Normal 133-145 [facility] Comment on above: Performed By: #### L 100.0100, M200.1000, L503.6005, L500.4050, L300.4310, L300.3900 ####[facility] [address] [place], [address] T PROT 7.1 g/dL Normal 5.9-8.4 [facility] Comment on above: Performed By: #### L 100.0100, M200.1000, L503.6005, L500.4050, L300.4310, L300.3900 ####[facility] [address] [place], [address] Urea nitrogen [Mass/Vol] 28 mg/dL High 07-21 [facility] Comment on above: Performed By: #### L 100.0100, M200.1000, L503.6005, L500.4050, L300.4310, L300.3900 ####[facility] [address] [place], [address] Emergency Department Summary on 07-21-2024 Emergency Department Summary [facility] Medical Records Department [address] [place] [address] Emergency Department Summary 07/21/24 MR#: [id number] Acct: [id number] Name: KAMINI IRBY Rep #: [id number] : 1965 59 From: Moo Watkins MD PCP: Dr. Pk Sloan, Status:DEP ER Location: ED HPI History of Present Illness Chief Complaint: Chest Pain Informant: patient and EMS Narrative Narrative: 59-year-old female states all day today she has felt really poorly and had pain everywhere. She states she is currently on doxycycline and Bactrim simultaneously for cellulitis in her left hand which is doing a lot better. She has a history of COPD wears oxygen intermittently at home, she has had a mild acute cough and mild dyspnea today although she has not tried to treat it with a breathing treatment, her chest is achy but she has the same achy pain throughout her entire body arms and legs, she states she has had periumbilical abdominal discomfort since starting the antibiotic and it is worse after she takes the pills but still persistent and does not go away even when she is not taking them, she denies any nausea vomiting diarrhea blood in her stool melena. No trouble urinating. She started having a fever tonight, since she had the cellulitis she has had no fevers. She is having some headache it is not severe and sudden. [facility] Medical History Wears glasses Post-menopausal Depression Anxiety Open wound History of steroid therapy Insulin dependent diabetes mellitus Arthritis Diabetes Anemia DVT (deep venous thrombosis) Excessive bleeding Pulmonary embolism Back pain TIA (transient ischemic attack) Gastric reflux Smoker CPAP (continuous positive airway pressure) dependence Sleep apnea On home oxygen therapy Emphysema, unspecified Asthma Chronic cough Leg cramps History of edema Normal stress echocardiogram History of echocardiogram History of CHF (congestive heart failure) Cardiology follow-up encounter Personal history of thromboembolic disease GERD (gastroesophageal reflux disease) Type 2 diabetes mellitus Essential hypertension Livedo reticularis Tubal Fibromyalgia Morbid (severe) obesity due to excess calories Nicotine dependence, uncomplicated Patient's noncompliance with other medical treatment and regimen Obstructive sleep apnea Chronic sinusitis Otitis media Bronchitis Osteoarthritis of right hip Costal chondritis Itching Chronic hypoxemic respiratory failure Shortness of breath Healthcare-associated pneumonia COPD exacerbation COPD, frequent exacerbations Chronic back pain Rheumatoid arthritis Tobacco dependence syndrome History of pulmonary embolus (PE) History of DVT of lower extremity Anxiety disorder Home Medications ???Medication ???Instructions ???Recorded ???Last Taken ???Type atenolol 100 mg tablet 100 mg PO DAILY blood pressure 06/04/22 05:00 History omeprazole 40 mg capsule,delayed 40 mg PO DAILY GERD 12/15/1306/03 History release pravastatin 40 mg tablet 40 mg PO QHS cholesterol 03/17/14 06/03/22 History glimepiride 4 mg tablet 4 mg PO DAILY diabetes 04/23/15 History docusate sodium 100 mg capsule 200 mg PO BID Constipation 7 06/03/22 History pregabalin 300 mg capsule (Lyrica) 300 mg PO BID nerve pain 7 06/03/22 History rivaroxaban 20 mg tablet 20 mg PO DAILY blood thinner 03/1006/02/22 17:00 History quetiapine 100 mg tablet 100 mg PO QHS sleep 12/12/1706/03 History trazodone 50 mg tablet 50 mg PO QHS sleep 12/13/17 History diclofenac sodium 75 mg 75 mg PO BID 11/27/21 06/03/22 His tory tablet,delayed release insulin glargine 100 unit/mL (3 60 unit subcut BID diabetes 06/03/22 06:00 History mL) subcutaneous pen (Lantus Solostar U-100 Insulin) omega-3 acid ethyl esters 1 gram 2 cap PO BID supplement 11/27/21 0 06/03/22 History capsule venlafaxine 150 mg 300 mg PO QHS mental health Unknown History capsule,extended release 24 hr metformin 500 mg tablet,extended 1,000 mg PO BID diabetes 05/31/22 06/02/22 History release 24 hr furosemide 40 mg tablet 40 mg PO DAILY diabetic #30 tabs 0 04/22/23 Unknown Rx albuterol sulfate 2.5 mg/3 mL 2.5 mg (3 mL) inhalation Q6H PRN 0 07/11/23 Unknown Rx (0.083 %) solution for nebulization SHORTNESS OF BREATH #180 vials fluticasone fur. 200 mcg-umeclid 1 inh inhalation DAILY #3 ea 11/24 Unknown Rx 62.5 mcg-vilant 25 mcg inhalat.powder (Trelegy Ellipta) ipratropium 0.5 mg-albuterol 3 mg 3 ml inhalation Q4H PRN PRN SOB 0 11/25/23 Unknown Rx (2.5 mg base)/3 mL nebulization /OR WHEEZING #180 mL soln loratadine 10 mg tablet 10 mg PO DAILY allergies # (more content not included)... Normal [facility] Eosinophil percentageOrdered By: Moo Watkins on 07-21-2024 Eosinophils/100 WBC (Bld) 0.3 % 0-5 [facility] Erythrocyte distribution wid th ratioOrdered By: Moo Watkins on 07-21-2024 Erythrocyte distribution width (RBC) [Ratio] 21.1 % High 11.6-14.6 [facility] Erythrocyte distribution wid th standard deviationOrdered By: Moo Watkins on 07-21-2024 Erythrocyte distribution width (RBC) [Ratio] 47.7 fl High 35.1-43.9 [facility] Glomerular filtration rate ( GFR) estimation/1.73 sq m using serum, plasma, or whole bOrdered By: Moo Watkins on 07-21-2024 GFR/1.73 sq M.predicted among non-blacks MDRD (S/P/Bld) [Vol rate/Area] 72 mL/min/{1.73_m2} >60 [facility] Comment on above: mL/min/1.73m2 CKD-EP I Creatinine Equation (2020) Hematocrit Auto (Bld) [Volum e fraction]Ordered By: Moo Watkins on 07-21-2024 Hematocrit (Bld) [Volume fraction] 37.1 % 37-47 [facility] Hemoglobin measurementOrdere d By: Moo Watkins on 07-21-2024 Hemoglobin (Bld) [Mass/Vol] 11.2 g/dL Low 12.0-15.0 [facility] Immature granulocytes/100 WB C Auto (Bld)Ordered By: Moo Watkins on 07-21-2024 Immature granulocytes/100 WBC (Bld) 0.700 % 0.0-0.9 [facility] Comment on above: IG% - Immature Granu locytes (promyelocytes, myelocytes and metamyelocytes) > 1% indicates that a LEFT SHIFT is Present. Influenza virus A and B and SARS-CoV-2 (COVID-19) and Respiratory syncytial virus RNAOrdered By: Moo Watkins on 07-21-2024 SARS-CoV-2 (COVID-19) RNA YADI+probe Ql (Unsp spec) [facility] International normalized rat io (INR) calculationOrdered By: Moo Watkins on 07-21-2024 INR Coag (Bld) [Relative time] 1.7 {INR} [facility] Ketones Test strip Ql (U)Ord ered By: Moo Watkins on 07-21-2024 Ketones Ql (U) Negative Negative [facility] L501.4021on 07-21-2024 Trop T High Sen < 6 Normal <=14 [facility] Comment on above: Performed By: #### L 501.402 #### [facility] Laboratory [facility] [address] [place], [place], [id number] Laboratory - Chemistry and C hemistry - challengeOrdered By: Moo Watkins on 07-21-2024 AST [Catalytic activity/Vol] 16 U/L <32 [facility] Laboratory - Hematology and Cell countsOrdered By: Moo Watkins on 07-21-2024 Anisocytosis Ql (Bld) 2+ [facility] Lactic Acidon 07-21-2024 Lactate [Moles/Vol] 2.2 mmol/L Invalid Interpretation Code 0.0-2.0 [facility] Comment on above: Order Comment: Y Result Comment: Crit ical Result(s) Called at: 1 by:??PARTH HANSON Results read back by same. Performed By: #### L 100.0100, M200.1000, L503.6005, L500.4050, L300.4310, L300.3900 ####[facility] [address] [place], [place], [id number] Lactic acid measurementOrder ed By: Moo Watkins on 07-21-2024 Lactate [Moles/Vol] 2.2 mmol/L High 0.0-2.0 [facility] Comment on above: Critical Result(s) C alled at: 2341 by: PARTH HANSON Results read back by same. MCV (mean corpuscular volume ) determinationOrdered By: Moo Watkins on 07-21-2024 MCV (RBC) [Entitic vol] 67.0 fL Low 81-99 [facility] Macrocytes detectionOrdered By: Moo Watkins on 07-21-2024 Macrocytes Ql (Bld) RARE [facility] Mean corpuscular hemoglobin (MCH) determinationOrdered By: Moo Watkins on 07-21-2024 MCH (RBC) [Entitic mass] 20.2 pg Low 27.0-32.0 [facility] Mean corpuscular hemoglobin concentration (MCHC) determinationOrdered By: Moo Watkins on 07-21-2024 MCHC (RBC) [Mass/Vol] 30.2 g/dL Low 32-36 [facility] Mean platelet volume determi nationOrdered By: Moo Watkins on 07-21-2024 Platelet mean volume (Bld) [Entitic vol] 9.6 fL 6.2-12.0 [facility] Microscopic analysis of urin e for red blood cells (RBC)Ordered By: Moo Watkins on 07-21-2024 Microscopic analysis of urine for red blood cells (RBC) 0 SEEN /hpf 0-5 [facility] Monocyte percentageOrdered B y: Moo Watkins on 07-21-2024 Monocytes/100 WBC (Bld) 5.7 % 0-10 [facility] Mucus LM Ql (Urine sed)Order ed By: Moo Watkins on 07-21-2024 Mucus Ql (Urine sed) 0 SEEN /hpf [facility] Neutrophil percentageOrdered By: Moo Watkins on 07-21-2024 Neutrophils/100 WBC (Bld) 82.1 % High 47-70 [facility] Nitrite Test strip Ql (U)Ord ered By: Moo Watkins on 07-21-2024 Nitrite Ql (U) Negative Negative [facility] Nucleated red blood cell per centageOrdered By: Moo Watkins on 07-21-2024 Nucleated RBC/100 WBC (Bld) [Ratio] 0 % 0-5 [facility] Partial Thromboplast Timeon 07-21-2024 aPTT Coag (Bld) [Time] 41.0 s High 24.1-36.2 [facility] Comment on above: Performed By: #### L 100.0100, M200.1000, L503.6005, L500.4050, L300.4310, L300.3900 ####[facility] [address] [place], [place], [id number] Platelet countOrdered By: Ayana Watkins on 07-21-2024 Platelets (Bld) [#/Vol] 259 10*3/uL 150-450 [facility] Potassium measurement (mass/ volume)Ordered By: Moo Watkins on 07-21-2024 Potassium (Unsp spec) [Mass/Vol] 4.3 mmol/L 3.3-5.1 [facility] Protein Test strip Ql (U)Ord ered By: Moo Watkins on 07-21-2024 Protein Ql (U) 15 mg/dl High Negative [facility] Prothrombin Time w/INRon INR Coag (PPP) [Relative time] 1.7 {INR} Normal [facility] Comment on above: Performed By: #### L 100.0100, M200.1000, L503.6005, L500.4050, L300.4310, L300.3900 ####[facility] [address] [place], [address] PT Coag (PPP) [Time] 20.4 s High 11.7-14.9 [facility] Comment on above: Performed By: #### L 100.0100, M200.1000, L503.6005, L500.4050, L300.4310, L300.3900 ####[facility] [address] [place], [address] Prothrombin timeOrdered By: Moo Watkins on 07-21-2024 PT Coag (PPP) [Time] 20.4 s High 11.7-14.9 [facility] RBC Auto (Bld) [#/Vol]Ordere d By: Moo Watkins on 07-21-2024 RBC (Bld) [#/Vol] 5.54 10*6/uL High 4.2-5.4 [facility] Serum creatinine measurement (mass/volume)Ordered By: Moo Watkins on 07-21-2024 Creatinine [Mass/Vol] 0.93 mg/dL 0.70-1.20 [facility] Serum globulin measurementOr dered By: Moo Watkins on 07-21-2024 Globulin (S) [Mass/Vol] 3.1 g/dL 2.2-4.2 [facility] Serum glucose measurement (m ass/volume)Ordered By: Moo Watkins on 07-21-2024 Glucose [Mass/Vol] 174 mg/dL High 70-99 [facility] Serum or plasma alanine dozier otransferase (ALT) measurementOrdered By: Moo Watkins on 07-21-2024 ALT [Catalytic activity/Vol] 23 U/L <35 [facility] Serum or plasma albumin yesenia urement (mass/volume)Ordered By: Moo Watkins on 07-21-2024 Albumin [Mass/Vol] 3.9 g/dL 3.5-5.0 [facility] Serum or plasma albumin/glob ulin mass ratioOrdered By: Moo Watkins on 07-21-2024 Albumin/Globulin [Mass ratio] 1.3 {ratio} 0.9-2.4 [facility] Serum or plasma alkaline rahul sphatase measurementOrdered By: Moo Watkins on 07-21-2024 ALP [Catalytic activity/Vol] 95 U/L 35-104 [facility] Serum or plasma calcium yesenia urement (mass/volume)Ordered By: Moo Watkins on 07-21-2024 Calcium [Mass/Vol] 9.1 mg/dL 7.6-11.0 [facility] Serum or plasma urea nitroge n measurement (mass/volume)Ordered By: Moo Watkins on 07-21-2024 Urea nitrogen [Mass/Vol] 28 mg/dL High 4-19 [facility] Sodium levelOrdered By: Taye Watkins on 07-21-2024 Sodium [Moles/Vol] 136 mmol/L 133-145 [facility] Squamous epithelial cells de tection in urine sediment by light microscopyOrdered By: Moo Watkins on 07-21-2024 Epithelial cells.squamous LM Ql (Urine sed) 0 SEEN /hpf 5-10 [facility] Total proteinOrdered By: Trip Watkins on 07-21-2024 Protein [Mass/Vol] 7.1 g/dL 5.9-8.4 [facility] Troponin T.cardiac [Mass/vol ume] in Serum or Plasma by High sensitivity methodOrdered By: Moo Watkins on 07-21-2024 Troponin T.cardiac High sensitivity method [Mass/Vol] < 6 ng/L <14 [facility] Urinalysis, Completeon 07-21 BILIRUBIN URINE Negative Normal Negative [facility] Comment on above: Order Comment: RUTHIE CTOR TO SPECIFY Performed By: #### M 100.678, L400.0001, #### [facility] Laboratory [address] [place], [place], [id number] Clarity (U) Clear Normal Clear [facility] Comment on above: Order Comment: RUTHIE CTOR TO SPECIFY Performed By: #### M 100.678, L400.0001, #### [facility] [address] [place], [address] Color (U) Yellow Normal Yellow [facility] Comment on above: Order Comment: RUTHIE CTOR TO SPECIFY Performed By: #### M 100.678, L400.0001, M100.2200 #### [facility] [address] [place], [address] GLUCOSE, UR 1000 mg/dl Abnormal Normal [facility] Comment on above: Order Comment: COLLE CTOR TO SPECIFY Performed By: #### M 100.678, L400.0001, M100.2200 #### [facility] [address] [place], [address] KETONE UR Negative Normal Negative [facility] Comment on above: Order Comment: COLLE CTOR TO SPECIFY Performed By: #### M 100.678, L400.0001, M100.2200 #### [facility] [address] [place], [address] LEUK ESTERASE Negative Normal Negative [facility] Comment on above: Order Comment: COLLE CTOR TO SPECIFY Performed By: #### M 100.678, L400.0001, M100.2200 #### [facility] [address] [place], [address] Nitrite Ql (U) Negative Normal Negative [facility] Comment on above: Order Comment: COLLE CTOR TO SPECIFY Performed By: #### M 100.678, L400.0001, M100.2200 #### [facility] [address] [place], [address] OCCULT BLOOD-UR Negative Normal Negative [facility] Comment on above: Order Comment: COLLE CTOR TO SPECIFY Performed By: #### M 100.678, L400.0001, M100.2200 #### [facility] [address] [place], [address] pH UR 6.0 Normal 5.0 - 8.0 [facility] Comment on above: Order Comment: COLLE CTOR TO SPECIFY Performed By: #### M 100.678, L400.0001, M100.2200 #### [facility] [address] [place], [address] PROT DIPSTX 15 mg/dl Abnormal Negative [facility] Comment on above: Order Comment: RUTHIE CTOR TO SPECIFY Performed By: #### M 100.678, L400.0001, M100.2200 #### [facility] [address] [place], [address] SP.GR. DIPSTX 1.015 Normal 1.002-1.030 [facility] Comment on above: Order Comment: RUTHIE CTOR TO SPECIFY Performed By: #### M 100.678, L400.0001, M100.2200 #### [facility] [address] [place], [address] UROBILI Normal Normal Normal [facility] Comment on above: Order Comment: RUTHIE CTOR TO SPECIFY Performed By: #### M 100.678, L400.0001, M100.2200 #### [facility] [address] [place], [address] EPI,SQUAMOUS 0 SEEN Normal 5-10 [facility] Comment on above: Order Comment: RUTHIE CTOR TO SPECIFY Performed By: #### M 100.678, L400.0001, M100.2200 #### [facility] [address] [place], [address] Mucus Ql (Urine sed) 0 SEEN Normal [facility] Comment on above: Order Comment: RUTHIE CTOR TO SPECIFY Performed By: #### M 100.678, L400.0001, M100.2200 #### [facility] [address] [place], [address] RBC 0 SEEN Normal 0-5 [facility] Comment on above: Order Comment: RUTHIE CTOR TO SPECIFY Performed By: #### M 100.678, L400.0001, M100.2200 #### [facility] [address] [place], [address] Urine clarityOrdered By: Trip Watkins on 07-21-2024 Clarity (U) Clear Clear [facility] Urine color determinationOrd ered By: Moo Watikns on 07-21-2024 Color (U) Yellow Yellow [facility] Urine cultureOrdered By: Trip Watkins on 07-21-2024 Bacteria identified Cx Nom (U) Culture exhibits no growth. [facility] Urine glucose detectionOrder ed By: Moo Watkins on 07-21-2024 Glucose Ql (U) 1000 mg/dl High Normal [facility] Urine leukocyte esterase det ection by dipstickOrdered By: Moo Watkins on 07-21-2024 Leukocyte esterase Test strip Ql (U) Negative Negative [facility] Urine pHOrdered By: Moo Watkins on 07-21-2024 pH (U) 6.0 [pH] 5.0 - 8.0 [facility] Urine sediment bacteria coun t by microscopy (number/high power field)Ordered By: Moo Watkins on 07-21-2024 Bacteria LM.HPF (Urine sed) [#/Area] RARE /hpf None Seen [facility] Urine specific gravity measu rementOrdered By: Moo Watkins on 07-21-2024 Specific gravity (U) [Rel density] 1.015 1.002-1.030 [facility] Urine urobilinogen measureme ntOrdered By: Moo Watkins on 07-21-2024 Urobilinogen Ql (U) Normal mg/dl Normal [facility] White blood cell (WBC) count Ordered By: Moo Watkins on 07-21-2024 WBC (Bld) [#/Vol] 19.5 10*3/uL High 4.4-11.0 [facility] White blood cell countOrdere d By: Moo Watkins on 07-21-2024 White blood cell count 5-10 SEEN /hpf 0-5 [facility] Pulmonary Visit Reporton Pulmonary Visit Report [facility] [place] [address] [place] [address] OFFICE VISIT Date of Service: 07/05/24 MR#: [id number] Acct: [id number] Name: KAMINI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 She is ambulatory and currently on room air. She has not recently been seen in the ED or urgent care for any respiratory illness. She has not recently required any antibiotics or prednisone for any breathing problems. She is compliant with use of Trelegy 1 puff daily. She does report rinsing her mouth out after each use. She denies any medication side effect such as sore throat or thrush. She is also compliant with loratadine daily and Singulair daily. She reports shortness of breath that is worse with exertion. She denies any cough, sputum production or hemoptysis. She reports occasional wheezing and chest tightness but denies any chest pain or palpitations. She denies any fever, chills or body aches. She is compliant with supplemental oxygen. She is currently utilizing 3L/min continuously. She is compliant with the use of her Lasix 40 mg daily. She continues to smoke cigarettes. She is currently smoking 1 pack/day. She reassures me she does not smoke with supplemental oxygen in place. She wakes up feeling rested and refreshed. She is not requiring naps. She is not having difficulty with dry mouth or frequent mask leaks. She denies any difficulty with morning headaches. She does report occasional dry mouth. Compliance report for the past 30 days shows 100% compliance with an average use of 6 hours and 15 minutes per night. Current setting is BiPAP 16/10 cmH2O with residual AHI of 1.2 events per hour. Leaks continue to be problematic. Test results personally reviewed with the patient: LDCT completed on March 12, 2024. Since prior study there is a 1.2 cm x 1.5 cm pleural-based soft tissue density in the posterior aspect of the left upper lobe with evidence of possible linear scarring. Since prior study, there is evidence of bilateral groundglass opacity in both lungs which have progressed. 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 Normal [facility] Routine wound cultureOrdered By: Pk Sloan on 05-09-2024 Wound Culture Negative Abnormal [facility] Absolute neutrophil countOrd ered By: Bill Tello on 05-07-2024 Neutrophils (Bld) [#/Vol] 6.5 10*3/uL 2.0-7.7 [facility] Basic Metabolic Profile (BMP )on 05-07-2024 BUN/CRE 25.1 RATIO High 10-20 [facility] Comment on above: Performed By: #### L 100.0100, L500.2500 ####[facility] [address] [place], [address] CA,Total 9.5 mg/dL Normal 8.5-10.1 [facility] Comment on above: Performed By: #### L 100.0100, L500.2500 ####[facility] [address] [place], [address] Chloride [Moles/Vol] 106 mmol/L Normal 98-107 [facility] Comment on above: Performed By: #### L 100.0100, L500.2500 ####[facility] [address] [place], [address] CO2 [Moles/Vol] 23.0 mmol/L Normal 21.0-32.0 [facility] Comment on above: Performed By: #### L 100.0100, L500.2500 ####[facility] [address] [place], [address] Creatinine [Mass/Vol] 0.92 mg/dL Normal 0.55-1.02 [facility] Comment on above: Result Comment: The validity of the calculated GFR GFRAA in patients over 70 years has not been determined. Clinical correlation is essential. Performed By: #### L 100.0100, L500.2500 ####[facility] [address] [place], [address] ECRCL 81.69 ml/min Normal [facility] Comment on above: Performed By: #### L 100.0100, L500.2500 ####[facility] [address] [place], [address] EST GFR - AA 81 mL/min Normal >60 [facility] Comment on above: Result Comment: Afri can Gambian GFR Calc Performed By: #### L 100.0100, L500.2500 ####[facility] [address] [place], [address] GAP 9 Normal 5-15 [facility] Comment on above: Performed By: #### L 100.0100, L500.2500 ####[facility] [address] [place], [address] GFR/1.73 sq M.predicted among non-blacks MDRD (S/P/Bld) [Vol rate/Area] 67 mL/min/{1.73_m2} Normal >60 [facility] Comment on above: Result Comment: Non- GFR Calc Performed By: #### L 100.0100, L500.2500 ####[facility] [address] [place], [address] Glucose [Mass/Vol] 111 mg/dL High 74-106 [facility] Comment on above: Result Comment: Fast ing Glucose result from 100 to 125 mg/dL suggests IMPAIRED HOMEOSTASIS per A.D.A. criteria. Performed By: #### L 100.0100, L500.2500 ####[facility] [address] [place], [address] Potassium [Moles/Vol] 4.0 mmol/L Normal 3.5-5.1 [facility] Comment on above: Performed By: #### L 100.0100, L500.2500 ####[facility] [address] [place], [address] Sodium [Moles/Vol] 138 mmol/L Normal 136-145 [facility] Comment on above: Performed By: #### L 100.0100, L500.2500 ####[facility] [address] [place], [address] Urea nitrogen [Mass/Vol] 23 mg/dL High 7-18 [facility] Comment on above: Performed By: #### L 100.0100, L500.2500 ####[facility] [address] [place], [address] Basophil percentageOrdered B y: Bill Tello on 05-07-2024 Basophils/100 WBC (Bld) 0.3 % 0-1 [facility] Blood urea nitrogen (BUN)/cr eatinine ratioOrdered By: Bill Tello on 05-07-2024 Urea nitrogen/Creatinine [Mass ratio] 25.1 mg/mg High 10-20 [facility] CBC W/Diff, Automatedon 02-0 Anisocytosis Ql (Bld) 2+ Normal [facility] Comment on above: Performed By: #### L 100.0100, L500.2500 ####[facility] [address] [place] [place], [address] SMEAR COMMENT SCANNED Normal [facility] Comment on above: Performed By: #### L 100.0100, L500.2500 ####[facility] [address] [place], [address] Carbon dioxide measurementOr dered By: Bill Tello on 05-07-2024 CO2 [Moles/Vol] 23.0 mmol/L 21.0-32.0 [facility] Chloride measurementOrdered By: Bill Tello on 05-07-2024 Chloride [Moles/Vol] 106 mmol/L 98-107 [facility] Emergency Department Summary on 05-07-2024 Emergency Department Summary [facility] Medical Records Department [address] [place] [address] Emergency Department Summary 05/07/24 MR#: [id number] Acct: [id number] Name: KAMINI IRBY Rep #: [id number] : 1965 58 From: Bill Tello MD PCP: Dr. Pk Sloan, DO Status:REG ER Location: ED HPI History of Present Illness HPI Narrative: 58-year-old female history of diabetes, diabetic neuropathy, anemia, DVT, COPD and rheumatoid arthritis. In December patient accidentally burned her feet bad needing to be sent to [facility] and having skin grafts. States since Tuesday the skin graft areas have turned red and mildly uncomfortable. She denies any fever or chills. Denies any streaks. She is concerned they may be infected. Chief Complaint: Wound Informant: patient Occured/Mechanism Mechanism/Context: No injury and No blunt trauma Onset/Context/Timing Onset: Days Context: Gradual Onset Timing: Continuous Quality of Pain: Dull and Aching Current Severity: Mild Maximum Severity: Mild Associated Symptoms Associated Symptoms: Negative for Weakness or Loss of Funtion Narrative Narrative: 58-year-old diabetic female with diabetic neuropathy has burned her feet in December needing skin grafts. Now she is concerned he may have become infected since Tuesday. Prior similar symptoms: No Recent Illness/Hospitalizatio n: No PFSH PFSH Medical History Wears glasses Post-menopausal Depression Anxiety Open wound History of steroid therapy Insulin dependent diabetes mellitus Arthritis Diabetes Anemia DVT (deep venous thrombosis) Excessive bleeding Pulmonary embolism Back pain TIA (transient ischemic attack) Gastric reflux Smoker CPAP (continuous positive airway pressure) dependence Sleep apnea On home oxygen therapy Emphysema, unspecified Asthma Chronic cough Leg cramps History of edema Normal stress echocardiogram History of echocardiogram History of CHF (congestive heart failure) Cardiology follow-up encounter Personal history of thromboembolic disease GERD (gastroesophageal reflux disease) Type 2 diabetes mellitus Essential hypertension Livedo reticularis Tubal Fibromyalgia Morbid (severe) obesity due to excess calories Nicotine dependence, uncomplicated Patient's noncompliance with other medical treatment and regimen Obstructive sleep apnea Chronic sinusitis Otitis media Bronchitis Osteoarthritis of right hip Costal chondritis Itching Chronic hypoxemic respiratory failure Shortness of breath Healthcare-associated pneumonia COPD exacerbation COPD, frequent exacerbations Chronic back pain Rheumatoid arthritis Tobacco dependence syndrome History of pulmonary embolus (PE) History of DVT of lower extremity Anxiety disorder Home Medications ???Medication ???Instructions ???Recorded ???Last Taken ???Type atenolol 100 mg tablet 100 mg PO DAILY blood pressure 06/04/22 05:00 History omeprazole 40 mg capsule,delayed 40 mg PO DAILY GERD 12/15/1306/03 History release pravastatin 40 mg tablet 40 mg PO QHS cholesterol 03/17/14 06/03/22 History glimepiride 4 mg tablet 4 mg PO DAILY diabetes 04/23/15 History docusate sodium 100 mg capsule 200 mg PO BID Constipation 7 06/03/22 History pregabalin 300 mg capsule (Lyrica) 300 mg PO BID nerve pain 7 06/03/22 History rivaroxaban 20 mg tablet 20 mg PO DAILY blood thinner 03/1006/02/22 17:00 History quetiapine 100 mg tablet 100 mg PO QHS sleep 12/12/1706/03 History trazodone 50 mg tablet 50 mg PO QHS sleep 12/13/17 History multivitamin (Daily Multi-Vitamin 1 tab PO DAILY vitamin 12/26/20 0 06/03/22 History tablet) bupropion HCl 150 mg tablet,12 hr 150 mg PO BID mental health 11/2706/03/22 History sustained-release dapagliflozin propanediol 5 mg 5 mg PO DAILY diabetes 11/27/21 History tablet (Farxiga) diclofenac sodium 75 mg 75 mg PO BID 11/27/21 06/03/22 His tory tablet,delayed release insulin glargine 100 unit/mL (3 60 unit subcut BID diabetes 06/03/22 06:00 History mL) subcutaneous pen (Lantus Solostar U-100 Insulin) omega-3 acid ethyl esters 1 gram 2 cap PO BID supplement 11/27/21 0 06/03/22 History capsule venlafaxine 150 mg 300 mg PO QHS mental health Unknown History capsule,extended release 24 hr metformin 500 mg tablet,extended 1,000 mg PO BID diabetes 05/31/22 06/02/22 History release 24 hr ferrous sulfate 325 mg (65 mg 325 mg PO DAILY supplement #30 tab s 06/08/22 06/03/22 Rx iron) tablet furosemide 40 mg tablet 40 mg PO DAILY diabetic #30 tabs 0 04/22/23 Unknown Rx acetaminophen 650 mg 1,300 mg PO DAILY PAIN 05/26/23 Un known Hi (more content not included)... Normal [facility] Eosinophil percentageOrdered By: Bill Tello on 05-07-2024 Eosinophils/100 WBC (Bld) 3.9 % 0-5 [facility] Erythrocyte distribution wid th ratioOrdered By: Bill Tello on 05-07-2024 Erythrocyte distribution width (RBC) [Ratio] 21.8 % High 11.6-14.6 [facility] Erythrocyte distribution wid th standard deviationOrdered By: Bill Tello on 05-07-2024 Erythrocyte distribution width (RBC) [Entitic vol] 50.6 fL High 35.1-43.9 [facility] Estimated glomerular filtrat ion rate (GFR) AmericanOrdered By: Bill Tello on 05-07-2024 Estimated GFR (MDRD) Amer 81 mL/min >60 [facility] Comment on above: GFR Calc Estimation of creatinine charline aranceOrdered By: Bill Tello on 05-07-2024 Estimated Creatinine Clearance Calc 81.69 ml/min [facility] Glomerular filtration rate ( GFR) estimationOrdered By: Bill Tello on 05-07-2024 Estimated GFR (MDRD) Non-Af Amer 67 mL/min >60 [facility] Comment on above: Non- GFR Calc Glucose measurementOrdered B y: Bill Tello on 05-07-2024 Glucose [Mass/Vol] 111 mg/dL High 74-106 [facility] Comment on above: Fasting Glucose resu lt from 100 to 125 mg/dL suggests IMPAIRED HOMEOSTASIS per A.D.A. criteria. Hematocrit Auto (Bld) [Volum e fraction]Ordered By: Bill Tello on 05-07-2024 Hematocrit (Bld) [Volume fraction] 42.2 % 37-47 [facility] Hemoglobin measurementOrdere d By: Bill Tello on 05-07-2024 Hemoglobin (Bld) [Mass/Vol] 11.6 g/dL Low 12.0-15.0 [facility] Immature granulocytes/100 WB C Auto (Bld)Ordered By: Bill Tello on 05-07-2024 Immature granulocytes/100 WBC (Bld) 0.300 % 0.0-0.9 [facility] Comment on above: IG% - Immature Granu locytes (promyelocytes, myelocytes and metamyelocytes) > 1% indicates that a LEFT SHIFT is Present. Laboratory - Hematology and Cell countsOrdered By: Bill Tello on 05-07-2024 Anisocytosis Ql (Bld) 2+ [facility] Lymphocytes Auto (Unsp spec) [#/Vol]Ordered By: Bill Tello on 05-07-2024 Lymphocytes (Bld) [#/Vol] 4.57 10*3/uL High 0.83-4.51 [facility] Lymphocytes/100 WBC Auto (Un sp spec)Ordered By: Bill Tello on 05-07-2024 Lymphocytes/100 WBC (Bld) 36.8 % 19-41 [facility] MCV (mean corpuscular volume ) determinationOrdered By: Bill Tello on 05-07-2024 MCV (RBC) [Entitic vol] 69.1 fL Low 81-99 [facility] Manual differential comment Murtaza (Bld) [Interp]Ordered By: Bill Tello on 05-07-2024 Differential Comment SCANNED [facility] Mean corpuscular hemoglobin (MCH) determinationOrdered By: Bill Tello on 05-07-2024 MCH (RBC) [Entitic mass] 19.0 pg Low 27.0-32.0 [facility] Mean corpuscular hemoglobin concentration (MCHC) determinationOrdered By: Bill Tello on 05-07-2024 MCHC (RBC) [Mass/Vol] 27.5 g/dL Low 32-36 [facility] Mean platelet volume determi nationOrdered By: Bill Tello on 05-07-2024 Platelet mean volume (Bld) [Entitic vol] 9.8 fL 6.2-12.0 [facility] Monocyte percentageOrdered B y: Bill Tello on 05-07-2024 Monocytes/100 WBC (Bld) 6.7 % 0-10 [facility] Neutrophil percentageOrdered By: Bill Tello on 05-07-2024 Neutrophils/100 WBC (Bld) 52.0 % 47-70 [facility] Nucleated red blood cell per centageOrdered By: Bill Tello on 05-07-2024 Nucleated RBC/100 WBC (Bld) [Ratio] 0 % 0-5 [facility] Platelet countOrdered By: Osvaldo Tello on 05-07-2024 Platelets (Bld) [#/Vol] 288 10*3/uL 150-450 [facility] Potassium measurementOrdered By: Bill Tello on 05-07-2024 Potassium [Moles/Vol] 4.0 mmol/L 3.5-5.1 [facility] RBC Auto (Bld) [#/Vol]Ordere d By: Bill Tello on 05-07-2024 RBC (Bld) [#/Vol] 6.11 10*6/uL High 4.2-5.4 [facility] Serum anion gap measurementO rdered By: Bill Tello on 05-07-2024 Anion gap [Moles/Vol] 9 mmol/L 5-15 [facility] Serum or plasma calcium yesenia urement (mass/volume)Ordered By: Bill Tello on 05-07-2024 Calcium [Mass/Vol] 9.5 mg/dL 8.5-10.1 [facility] Serum or plasma creatinine m easurement (mass/volume)Ordered By: Bill Tello on 05-07-2024 Creatinine [Mass/Vol] 0.92 mg/dL 0.55-1.02 [facility] Comment on above: The validity of the calculated GFR & GFRAA in patients over 70 years has not been determined. Clinical correlation is essential. Serum or plasma urea nitroge n measurement (mass/volume)Ordered By: Bill Tello on 05-07-2024 Urea nitrogen [Mass/Vol] 23 mg/dL High 7-18 [facility] Sodium levelOrdered By: Bill Tello on 05-07-2024 Sodium [Moles/Vol] 138 mmol/L 136-145 [facility] White blood cell (WBC) count Ordered By: Bill Tello on 05-07-2024 WBC (Bld) [#/Vol] 12.4 10*3/uL High 4.4-11.0 [facility] Low Dose CT Lung Screeningon 03-12-[address] Lung Screening [facility] Imaging Services [address] [place] [id number] Lung Screening MR#: [id number] Acct: [id number] Name: KAMINI IRBY Rep #: [id number] : 1965 F 58 From: Fredrick sanchez MD PCP: Dr. Pk Sloan, DO Status: [facility] Study: Low Dose CT Lung Screening Date of Exam: 03/12 Exam# [id number] Ordering Dr: Zeny Noel NP [employer]ER-C [id number] STUDY: LOW DOSE CT LUNG CANCER SCREENING REASON FOR EXAM: Female, 58 years old. Smoker RADIATION DOSAGE (If Supplied By Facility): CTDIvol = ( 4.02 ) mGy, DLP = ( 115.31 ) mGycm TECHNIQUE: No contrast was administered. Low dose technique was utilized (average mAS-38 and kVp 120). 1.25 mm axial source images with a slice interval of 1.25-mm were reconstructed in lung windows. 2.5 mm axial source images with a slice interval of 2.5-mm were reconstructed in lung windows. 5.0 mm axial source images with a slice interval of 5.0-mm were reconstructed in soft tissue windows. COMPARISON: Comparison is made with prior study dated January 12, 2023. NODULES: Since prior study, there is a 1.2 cm x 1.5 cm pleural-based soft tissue density in the posterior aspect of the left upper lobe with evidence of possible linear scarring. Since prior study, there is evidence of bilateral groundglass opacities in both lungs which have progressed. Emphysema: Mild emphysematous changes. Endobronchial lesion: None Aorta: Mild atherosclerotic transformation of the aortic arch. CORONARY ARTERIES: Coronary artery calcification is not seen. Heart: Cardiomegaly Pulmonary artery: Unremarkable Mediastinal nodes: Unremarkable Other chest and abdominal findings: CT/Low Dose CT Lung Screening IMPRESSION: Lung-RADS category 4A - Screening at 3 months with LDCT or evaluation with PET/CT may be used. IMPORTANT NOTES FOR USE: ACR Lung-RADS Version 1.1 Assessment Categories Release Date: 2019 Category: Coded 0-4 bases on nodule(s) with highest degree of suspicion. Negative screen is defined as categories 1 and 2; a positive screen is defined as categories 3 and 4. Category 3 and 4A nodules that are unchanged on interval CT should be coded as category 2, and individuals returned to screening in 12 months. Category 4X: Category 3 or 4 nodules with additional imaging findings that increase the suspicion of lung cancer, such as spiculation, GGN that doubles in size in 1 year, enlarged lymph notes, etc. Category Modifiers: S (significant finding unrelated to lung cancer) Electronically Signed: Fredrick Leal MD at 10:58 EST , CC: BASHIR Noel; Dr. Pk Sloan DO Cotton Farmer: Signed Normal [facility] GLUCOSE BY METERon 4 Glucose [Mass/Vol] 131 mg/dL High 70-99 [facility] Comment on above: Order Comment: Relea se to patient->Automatic Glucose [Mass/Vol] 139 mg/dL High 70-99 [facility] Comment on above: Order Comment: Relea se to patient->Automatic Glucose by meteron 4 Glucose [Mass/Vol] 131 mg/dL High 70 - 99 mg/dL [facility] Interpretation and review of laboratory results Abnormal [facility] Glucose [Mass/Vol] 139 mg/dL High 70 - 99 mg/dL [facility] Interpretation and review of laboratory results Abnormal [facility] GLUCOSE BY METERon 4 Glucose [Mass/Vol] 123 mg/dL High 70-99 [facility] Comment on above: Order Comment: Relea se to patient->Automatic Glucose [Mass/Vol] 116 mg/dL High 70-99 [facility] Comment on above: Order Comment: Relea se to patient->Automatic Glucose [Mass/Vol] 129 mg/dL High 70-99 [facility] Comment on above: Order Comment: Relea se to patient->Automatic Glucose [Mass/Vol] 146 mg/dL High 70-99 [facility] Comment on above: Order Comment: Relea se to patient->Automatic Glucose by meteron 4 Glucose [Mass/Vol] 123 mg/dL High 70 - 99 mg/dL [facility] Interpretation and review of laboratory results Abnormal [facility] Glucose [Mass/Vol] 116 mg/dL High 70 - 99 mg/dL [facility] Interpretation and review of laboratory results Abnormal [facility] Glucose [Mass/Vol] 129 mg/dL High 70 - 99 mg/dL [facility] Interpretation and review of laboratory results Abnormal [facility] Glucose [Mass/Vol] 146 mg/dL High 70 - 99 mg/dL [facility] Interpretation and review of laboratory results Abnormal [facility] LOW MOLECULAR WEIGHT HEPARIN ANTI-XAon 02-05-2024 Low Molecular Weight Heparin Anti-XA 0.17 IU/ML Invalid Interpretation Code [facility] Comment on above: Order Comment: Relea se to patient->Automatic Result Comment: Prop hylaxis 0.2-0.4 IU/mL Therapeutic ???0.6-1.2 IU/mL Low Molecular Weight Heparin Anti-Xa (Time sensitive lab, please ensure timing is correct)Ordered By: Chaparro Reid on 02-05-2024 LMW Heparin Coag Qn (PPP) 0.17 IU/ML [facility] Comment on above: Prophylaxis 0.2-0.4 IU/mL Therapeutic 0.6-1.2 IU/mL [facility] GLUCOSE BY METERon 4 Glucose [Mass/Vol] 168 mg/dL High 70-99 [facility] Comment on above: Order Comment: Relea se to patient->Automatic Glucose [Mass/Vol] 127 mg/dL High 70-99 [facility] Comment on above: Order Comment: Relea se to patient->Automatic Glucose [Mass/Vol] 98 mg/dL Invalid Interpretation Code 70-99 [facility] Comment on above: Order Comment: Relea se to patient->Automatic Glucose [Mass/Vol] 125 mg/dL High 70-99 [facility] Comment on above: Order Comment: Relea se to patient->Automatic Glucose by meteron 4 Glucose [Mass/Vol] 168 mg/dL High 70 - 99 mg/dL [facility] Interpretation and review of laboratory results Abnormal [facility] Glucose [Mass/Vol] 127 mg/dL High 70 - 99 mg/dL [facility] Interpretation and review of laboratory results Abnormal [facility] Glucose [Mass/Vol] 98 mg/dL 70 - 99 mg/dL [facility] Interpretation and review of laboratory results Normal [facility] Glucose [Mass/Vol] 125 mg/dL High 70 - 99 mg/dL [facility] Interpretation and review of laboratory results Abnormal [facility] GLUCOSE BY METERon 4 Glucose [Mass/Vol] 147 mg/dL High 70-99 [facility] Comment on above: Order Comment: Relea se to patient->Automatic Glucose [Mass/Vol] 118 mg/dL High 70-99 [facility] Comment on above: Order Comment: Relea se to patient->Automatic Glucose [Mass/Vol] 123 mg/dL High 70-99 [facility] Comment on above: Order Comment: Relea se to patient->Automatic Glucose by meteron 4 Glucose [Mass/Vol] 147 mg/dL High 70 - 99 mg/dL [facility] Interpretation and review of laboratory results Abnormal [facility] Glucose [Mass/Vol] 118 mg/dL High 70 - 99 mg/dL [facility] Interpretation and review of laboratory results Abnormal [facility] Glucose [Mass/Vol] 123 mg/dL High 70 - 99 mg/dL [facility] Interpretation and review of laboratory results Abnormal [facility] GLUCOSE BY METERon 4 Glucose [Mass/Vol] 136 mg/dL High 70-99 [facility] Comment on above: Order Comment: Relea se to patient->Automatic Glucose [Mass/Vol] 106 mg/dL High 70-99 [facility] Comment on above: Order Comment: Relea se to patient->Automatic Glucose [Mass/Vol] 123 mg/dL High 70-99 [facility] Comment on above: Order Comment: Relea se to patient->Automatic Glucose [Mass/Vol] 154 mg/dL High 70-99 [facility] Comment on above: Order Comment: Relea se to patient->Automatic Glucose by meteron 4 Glucose [Mass/Vol] 136 mg/dL High 70 - 99 mg/dL [facility] Interpretation and review of laboratory results Abnormal [facility] Glucose [Mass/Vol] 106 mg/dL High 70 - 99 mg/dL [facility] Interpretation and review of laboratory results Abnormal [facility] Glucose [Mass/Vol] 123 mg/dL High 70 - 99 mg/dL [facility] Interpretation and review of laboratory results Abnormal [facility] Glucose [Mass/Vol] 154 mg/dL High 70 - 99 mg/dL [facility] Interpretation and review of laboratory results Abnormal [facility] LOW MOLECULAR WEIGHT HEPARIN ANTI-XAon 02-02-2024 Low Molecular Weight Heparin Anti-XA 0.12 IU/ML Invalid Interpretation Code [facility] Comment on above: Order Comment: Relea se to patient->Automatic Result Comment: Prop hylaxis 0.2-0.4 IU/mL Therapeutic ???0.6-1.2 IU/mL Low Molecular Weight Heparin Anti-Xa (Time sensitive lab, please ensure timing is correct)Ordered By: Nano Presley on 02-02-2024 LMW Heparin Coag Qn (PPP) 0.12 IU/ML [facility] Comment on above: Prophylaxis 0.2-0.4 IU/mL Therapeutic 0.6-1.2 IU/mL [facility] GLUCOSE BY METERon 4 Glucose [Mass/Vol] 156 mg/dL High 70-99 [facility] Comment on above: Order Comment: Relea se to patient->Automatic Glucose [Mass/Vol] 84 mg/dL Invalid Interpretation Code 70-99 [facility] Comment on above: Order Comment: Relea se to patient->Automatic Glucose [Mass/Vol] 138 mg/dL High 70-99 [facility] Comment on above: Order Comment: Relea se to patient->Automatic Glucose [Mass/Vol] 133 mg/dL High 70-99 [facility] Comment on above: Order Comment: Relea se to patient->Automatic Glucose by meteron Glucose [Mass/Vol] 156 mg/dL High 70 - 99 mg/dL [facility] Interpretation and review of laboratory results Abnormal [facility] Glucose [Mass/Vol] 84 mg/dL 70 - 99 mg/dL [facility] Interpretation and review of laboratory results Normal [facility] Glucose [Mass/Vol] 138 mg/dL High 70 - 99 mg/dL [facility] Interpretation and review of laboratory results Abnormal [facility] Glucose [Mass/Vol] 133 mg/dL High 70 - 99 mg/dL [facility] Interpretation and review of laboratory results Abnormal [facility] COMPLETE BLOOD COUNT WITH DI FFERENTIALon 01-31-2024 Basophils (Bld) [#/Vol] 0.02 10*3/uL Invalid Interpretation Code 0.02-0.06 [facility] Comment on above: Order Comment: Relea se to patient->Automatic Basophils/100 WBC (Bld) 0.2 % Low 0.3-0.9 [facility] Comment on above: Order Comment: Relea se to patient->Automatic Eosinophils (Bld) [#/Vol] 0.47 10*3/uL High 0.04-0.27 [facility] Comment on above: Order Comment: Relea se to patient->Automatic Eosinophils/100 WBC (Bld) 4.7 % High 0.6-3.8 [facility] Comment on above: Order Comment: Relea se to patient->Automatic Erythrocyte distribution width (RBC) [Ratio] 16.2 % High 11.9-14.8 [facility] Comment on above: Order Comment: Relea se to patient->Automatic Hematocrit (Bld) [Volume fraction] 33.2 % Low 35.5-44.6 [facility] Comment on above: Order Comment: Relea se to patient->Automatic Hemoglobin (Bld) [Mass/Vol] 9.7 g/dL Low 11.4-14.8 [facility] Comment on above: Order Comment: Relea se to patient->Automatic Immature granulocytes/100 WBC (Bld) 0.4 % Invalid Interpretation Code 0.2-0.5 [facility] Comment on above: Order Comment: Relea se to patient->Automatic Result Comment: Linda ture Granulocyte Percent includes promyelocytes, myelocytes,and metamyelocytes. IG% > 1.0 indicates a left shift is present. With automated differentials, bands are included in the neutrophil count and not in the Immature Granulocyte Percent. Lymphocytes (Bld) [#/Vol] 2.39 10*3/uL Invalid Interpretation Code 1.51-2.99 [facility] Comment on above: Order Comment: Relea se to patient->Automatic Lymphocytes/100 WBC (Bld) 23.7 % Invalid Interpretation Code 21.8-42.1 [facility] Comment on above: Order Comment: Relea se to patient->Automatic MCH (RBC) [Entitic mass] 23.4 pg Low 25.7-31.2 [facility] Comment on above: Order Comment: Relea se to patient->Automatic MCHC 29.2 % Low 31.3-34.0 [facility] Comment on above: Order Comment: Relea se to patient->Automatic MCV (RBC) [Entitic vol] 80.2 fL Low 80.7-93.7 [facility] Comment on above: Order Comment: Relea se to patient->Automatic Monocytes (Bld) [#/Vol] 0.69 10*3/uL Invalid Interpretation Code 0.36-0.77 [facility] Comment on above: Order Comment: Relea se to patient->Automatic Monocytes/100 WBC (Bld) 6.8 % Invalid Interpretation Code 5.6-10.2 [facility] Comment on above: Order Comment: Relea se to patient->Automatic Neutrophils (Bld) [#/Vol] 6.49 10*3/uL High 2.43-6.42 [facility] Comment on above: Order Comment: Relea se to patient->Automatic Neutrophils/100 WBC (Bld) 64.2 % Invalid Interpretation Code 46.0-68.6 [facility] Comment on above: Order Comment: Relea se to patient->Automatic Nucleated RBC/100 WBC (Bld) [Ratio] 0.0 % Invalid Interpretation Code 0.0-0.0 [facility] Comment on above: Order Comment: Relea se to patient->Automatic Platelet mean volume (Bld) [Entitic vol] 9.5 fL Low 9.6-11.9 [facility] Comment on above: Order Comment: Relea se to patient->Automatic Platelets (Bld) [#/Vol] 396 10*3/uL Invalid Interpretation Code 150-400 [facility] Comment on above: Order Comment: Relea se to patient->Automatic RBC 4.14 10E12/L Invalid Interpretation Code 4.03-4.91 [facility] Comment on above: Order Comment: Relea se to patient->Automatic WBC (Bld) [#/Vol] 10.1 10*3/uL High 4.9-10.0 [facility] Comment on above: Order Comment: Relea se to patient->Automatic COMPREHENSIVE METABOLIC PANE Huang 01-31-2024 Albumin [Mass/Vol] 3.3 g/dL Low 3.5-5.0 [facility] Comment on above: Order Comment: Relea se to patient->Automatic Result Comment: Veri fied By: [id number] ALP [Catalytic activity/Vol] 85 U/L Invalid Interpretation Code 35-104 [facility] Comment on above: Order Comment: Relea se to patient->Automatic Result Comment: Veri fied By: [id number] ALT [Catalytic activity/Vol] 20 U/L Invalid Interpretation Code <=34 [facility] Comment on above: Order Comment: Relea se to patient->Automatic Result Comment: Veri fied By: [id number] AST [Catalytic activity/Vol] 18 U/L Invalid Interpretation Code <=31 [facility] Comment on above: Order Comment: Relea se to patient->Automatic Result Comment: Veri fied By: [id number] BILI,TOTAL 0.3 mg/dL Invalid Interpretation Code <=1.0 [facility] Comment on above: Order Comment: Relea se to patient->Automatic Result Comment: Veri fied By: [id number] Calcium [Mass/Vol] 9.0 mg/dL Invalid Interpretation Code 7.6-11.0 [facility] Comment on above: Order Comment: Relea se to patient->Automatic Result Comment: Veri fied By: [id number] Chloride [Moles/Vol] 104 mmol/L Invalid Interpretation Code 96-108 [facility] Comment on above: Order Comment: Relea se to patient->Automatic Result Comment: Veri fied By: [id number] CO2 [Moles/Vol] 23.5 mmol/L Invalid Interpretation Code 22.0-29.0 [facility] Comment on above: Order Comment: Relea se to patient->Automatic Result Comment: Veri fied By: [id number] Creatinine [Mass/Vol] 0.53 mg/dL Invalid Interpretation Code 0.50-1.00 [facility] Comment on above: Order Comment: Relea se to patient->Automatic Result Comment: Veri fied By: [id number] GFR/1.73 sq M.predicted among non-blacks MDRD (S/P/Bld) [Vol rate/Area] mL/min/{1.73_m2} Invalid Interpretation Code >=60 [facility] Comment on above: Order Comment: Relea se to patient->Automatic Glucose [Mass/Vol] 165 mg/dL High 70-99 [facility] Comment on above: Order Comment: Relea se to patient->Automatic Result Comment: Crit abel for Diagnosis of Diabetes: Fasting Specimen (no caloric intake for at least 8 hours): <100 mg/dL Normal 100-125 mg/dL Increased risk for Diabetes >125 mg/dL Diagnostic for Diabetes Random Glucose (any time of day without regard to last meal): > or = 200 mg/dL plus Classic Symptoms of Diabetes Verified By: [id number] Potassium [Moles/Vol] 4.2 mmol/L Invalid Interpretation Code 3.3-5.1 [facility] Comment on above: Order Comment: Relea se to patient->Automatic Result Comment: Veri fied By: [id number] Protein [Mass/Vol] 6.4 g/dL Invalid Interpretation Code 5.9-8.4 [facility] Comment on above: Order Comment: Relea se to patient->Automatic Result Comment: Veri fied By: [id number] Sodium [Moles/Vol] 138 mmol/L Invalid Interpretation Code 133-145 [facility] Comment on above: Order Comment: Relea se to patient->Automatic Result Comment: Veri fied By: [id number] Urea nitrogen [Mass/Vol] 8 mg/dL Invalid Interpretation Code 4-19 [facility] Comment on above: Order Comment: Relea se to patient->Automatic Result Comment: Veri fied By: [id number] Complete Blood Count with Di fferentialOrdered By: Johanna Orourke on 01-31-2024 Basophils (Bld) [#/Vol] 0.02 10*3/uL [facility] Basophils/100 WBC (Bld) 0.2 % Low 0.3 - 0.9 % [facility] Eosinophils (Bld) [#/Vol] 0.47 10*3/uL High [facility] Eosinophils/100 WBC (Bld) 4.7 % High 0.6 - 3.8 % [facility] Erythrocyte distribution width (RBC) [Ratio] 16.2 % High 11.9 - 14.8 % [facility] Hematocrit (Bld) [Volume fraction] 33.2 % Low 35.5 - 44.6 % [facility] Hemoglobin (Bld) [Mass/Vol] 9.7 g/dL Low 11.4 - 14.8 g/dL [facility] Immature granulocytes/100 WBC (Bld) 0.4 % 0.2 - 0.5 % [facility] Comment on above: Immature Granulocyte Percent includes promyelocytes, myelocytes,and metamyelocytes. IG% > 1.0 indicates a left shift is present. With automated differentials, bands are included in the neutrophil count and not in the Immature Granulocyte Percent. Interpretation and review of laboratory results Abnormal [facility] Lymphocytes (Bld) [#/Vol] 2.39 10*3/uL [facility] Lymphocytes/100 WBC (Bld) 23.7 % 21.8 - 42.1 % [facility] MCH (RBC) [Entitic mass] 23.4 pg Low 25. 7 - 31.2 pg [facility] MCHC (RBC) [Mass/Vol] 29.2 % Low 31.3 - 34.0 % [facility] MCV (RBC) [Entitic vol] 80.2 fL Low 80.7 - 93.7 fL [facility] Monocytes (Bld) [#/Vol] 0.69 10*3/uL [facility] Monocytes/100 WBC (Bld) 6.8 % 5.6 - 10.2 % [facility] Neutrophils (Bld) [#/Vol] 6.49 10*3/uL High [facility] Neutrophils/100 WBC (Bld) 64.2 % 46.0 - 68.6 % [facility] Nucleated RBC/100 WBC (Bld) [Ratio] 0 % 0.0 - 0.0 % [facility] Platelet mean volume (Bld) [Entitic vol] 9.5 fL Low 9.6 - 11.9 fL [facility] Platelets (Bld) [#/Vol] 396 10*3/uL [facility] RBC (Bld) [#/Vol] 4.14 10*6/uL [facility] WBC (Bld) [#/Vol] 10.1 10*3/uL [facility] Comprehensive metabolic pane huang 01-31-2024 Albumin BCG dye [Mass/Vol] 3.3 g/dL Low 3.5 - 5.0 g/dL [facility] Comment on above: Verified By: [id number] ALP [Catalytic activity/Vol] 85 U/L 35 - 104 U/L [facility] Comment on above: Verified By: [id number] ALT With P-5'-P [Catalytic activity/Vol] 20 U/L NINF - 34 U/L [facility] [facility] Comment on above: Verified By: [id number] AST With P-5'-P [Catalytic activity/Vol] 18 U/[facility] Comment on above: Verified By: [id number] Bilirubin [Mass/Vol] 0.3 mg/dL [facility] 1.[facility] mg/dL [facility] Comment on above: Verified By: [id number] Calcium [Mass/Vol] 9 mg/dL 7.6 - 11. 0 mg/dL [facility] Comment on above: Verified By: [id number] Chloride [Moles/Vol] 104 mmol/L 96 - 10 8 mmol/L [facility] Comment on above: Verified By: [id number] Creatinine [Mass/Vol] 0.53 mg/dL 0.50 - 1.00 mg/dL [facility] Comment on above: Verified By: [id number] eGFR - PINF [facility] Glucose [Mass/Vol] 165 mg/dL High 70 - 99 mg/dL [facility] Comment on above: Criteria for Diagnos is of Diabetes: Fasting Specimen (no caloric intake for at least 8 hours): <100 mg/dL Normal 100-125 mg/dL Increased risk for Diabetes >125 mg/dL Diagnostic for Diabetes Random Glucose (any time of day without regard to last meal): > or = 200 mg/dL plus Classic Symptoms of Diabetes Verified By: [id number] HCO3 (P) [Moles/Vol] 23.5 mmol/L 22.0 - 29.0 mmol/L [facility] Comment on above: Verified By: [id number] Interpretation and review of laboratory results Abnormal [facility] Potassium (BldA) [Moles/Vol] 4.2 mmol/L 3.3 - 5.1 mmol/L [facility] Comment on above: Verified By: [id number] Protein [Mass/Vol] 6.4 g/dL 5.9 - 8.4 g/dL [facility] Comment on above: Verified By: [id number] Sodium [Moles/Vol] 138 mmol/L 133 - 145 mmol/L [facility] Comment on above: Verified By: [id number] Urea nitrogen [Mass/Vol] 8 mg/dL 4 - 19 mg/dL [facility] Comment on above: Verified By: [id number] [facility] GLUCOSE BY METERon 4 Glucose [Mass/Vol] 143 mg/dL High 70-99 [facility] Comment on above: Order Comment: Relea se to patient->Automatic Glucose [Mass/Vol] 129 mg/dL High 70-99 [facility] Comment on above: Order Comment: Relea se to patient->Automatic Glucose by meteron 4 Glucose [Mass/Vol] 143 mg/dL High 70 - 99 mg/dL [facility] Interpretation and review of laboratory results Abnormal [facility] Interpretation and review of laboratory results Abnormal [facility] CBC and differentialOrdered By: Pa Steele on 01-30-2024 Basophils (Bld) [#/Vol] 0.03 10*3/uL [facility] Basophils/100 WBC (Bld) 0.2 % Low 0.3 - 0.9 % [facility] Eosinophils (Bld) [#/Vol] 0.43 10*3/uL High [facility] Eosinophils/100 WBC (Bld) 3.2 % 0.6 - 3.8 % [facility] Erythrocyte distribution width (RBC) [Ratio] 15.9 % High 11.9 - 14.8 % [facility] Hematocrit (Bld) [Volume fraction] 34.4 % Low 35.5 - 44.6 % [facility] Hemoglobin (Bld) [Mass/Vol] 10.1 g/dL Low 11.4 - 14.8 g/dL [facility] Immature granulocytes/100 WBC (Bld) 0.7 % High 0.2 - 0.5 % [facility] Comment on above: Immature Granulocyte Percent includes promyelocytes, myelocytes,and metamyelocytes. IG% > 1.0 indicates a left shift is present. With automated differentials, bands are included in the neutrophil count and not in the Immature Granulocyte Percent. Interpretation and review of laboratory results Abnormal [facility] Lymphocytes (Bld) [#/Vol] 2.94 10*3/uL [facility] Lymphocytes/100 WBC (Bld) 21.8 % 21.8 - 42.1 % [facility] MCH (RBC) [Entitic mass] 23.7 pg Low 25. 7 - 31.2 pg [facility] MCHC (RBC) [Mass/Vol] 29.4 % Low 31.3 - 34.0 % [facility] MCV (RBC) [Entitic vol] 80.8 fL 80.7 - 93.7 fL [facility] Monocytes (Bld) [#/Vol] 0.83 10*3/uL High [facility] Monocytes/100 WBC (Bld) 6.2 % 5.6 - 10.2 % [facility] Neutrophils (Bld) [#/Vol] 9.17 10*3/uL [facility] Neutrophils/100 WBC (Bld) 67.9 % 46.0 - 68.6 % [facility] Nucleated RBC/100 WBC (Bld) [Ratio] 0 % 0.0 - 0.0 % [facility] Platelet mean volume (Bld) [Entitic vol] 9.6 fL 9.6 - 11.9 fL [facility] Platelets (Bld) [#/Vol] 342 10*3/uL [facility] RBC (Bld) [#/Vol] 4.26 10*6/uL [facility] WBC (Bld) [#/Vol] 13.5 10*3/uL [facility] COMPLETE BLOOD COUNT WITH DI TIFFANIEon 01-30-2024 Basophils (Bld) [#/Vol] 0.03 10*3/uL Invalid Interpretation Code 0.02-0.06 [facility] Comment on above: Order Comment: Relea se to patient->Automatic Basophils/100 WBC (Bld) 0.2 % Low 0.3-0.9 [facility] Comment on above: Order Comment: Relea se to patient->Automatic Eosinophils (Bld) [#/Vol] 0.43 10*3/uL High 0.04-0.27 [facility] Comment on above: Order Comment: Relea se to patient->Automatic Eosinophils/100 WBC (Bld) 3.2 % Invalid Interpretation Code 0.6-3.8 [facility] Comment on above: Order Comment: Relea se to patient->Automatic Erythrocyte distribution width (RBC) [Ratio] 15.9 % High 11.9-14.8 [facility] Comment on above: Order Comment: Relea se to patient->Automatic Hematocrit (Bld) [Volume fraction] 34.4 % Low 35.5-44.6 [facility] Comment on above: Order Comment: Relea se to patient->Automatic Hemoglobin (Bld) [Mass/Vol] 10.1 g/dL Low 11.4-14.8 [facility] Comment on above: Order Comment: Relea se to patient->Automatic Immature granulocytes/100 WBC (Bld) 0.7 % High 0.2-0.5 [facility] Comment on above: Order Comment: Relea se to patient->Automatic Result Comment: Linda ture Granulocyte Percent includes promyelocytes, myelocytes,and metamyelocytes. IG% > 1.0 indicates a left shift is present. With automated differentials, bands are included in the neutrophil count and not in the Immature Granulocyte Percent. Lymphocytes (Bld) [#/Vol] 2.94 10*3/uL Invalid Interpretation Code 1.51-2.99 [facility] Comment on above: Order Comment: Relea se to patient->Automatic Lymphocytes/100 WBC (Bld) 21.8 % Invalid Interpretation Code 21.8-42.1 [facility] Comment on above: Order Comment: Relea se to patient->Automatic MCH (RBC) [Entitic mass] 23.7 pg Low 25.7-31.2 [facility] Comment on above: Order Comment: Relea se to patient->Automatic MCHC 29.4 % Low 31.3-34.0 [facility] Comment on above: Order Comment: Relea se to patient->Automatic MCV (RBC) [Entitic vol] 80.8 fL Invalid Interpretation Code 80.7-93.7 [facility] Comment on above: Order Comment: Relea se to patient->Automatic Monocytes (Bld) [#/Vol] 0.83 10*3/uL High 0.36-0.77 [facility] Comment on above: Order Comment: Relea se to patient->Automatic Monocytes/100 WBC (Bld) 6.2 % Invalid Interpretation Code 5.6-10.2 [facility] Comment on above: Order Comment: Relea se to patient->Automatic Neutrophils (Bld) [#/Vol] 9.17 10*3/uL High 2.43-6.42 [facility] Comment on above: Order Comment: Relea se to patient->Automatic Neutrophils/100 WBC (Bld) 67.9 % Invalid Interpretation Code 46.0-68.6 [facility] Comment on above: Order Comment: Relea se to patient->Automatic Nucleated RBC/100 WBC (Bld) [Ratio] 0.0 % Invalid Interpretation Code 0.0-0.0 [facility] Comment on above: Order Comment: Relea se to patient->Automatic Platelet mean volume (Bld) [Entitic vol] 9.6 fL Invalid Interpretation Code 9.6-11.9 [facility] Comment on above: Order Comment: Relea se to patient->Automatic Platelets (Bld) [#/Vol] 342 10*3/uL Invalid Interpretation Code 150-400 [facility] Comment on above: Order Comment: Relea se to patient->Automatic RBC 4.26 10E12/L Invalid Interpretation Code 4.03-4.91 [facility] Comment on above: Order Comment: Relea se to patient->Automatic WBC (Bld) [#/Vol] 13.5 10*3/uL High 4.9-10.0 [facility] Comment on above: Order Comment: Relea se to patient->Automatic GLUCOSE BY METERon 4 Glucose [Mass/Vol] 167 mg/dL High 70-99 [facility] Comment on above: Order Comment: Relea se to patient->Automatic Glucose [Mass/Vol] 95 mg/dL Invalid Interpretation Code 70-99 [facility] Comment on above: Order Comment: Relea se to patient->Automatic Glucose by meteron 4 Glucose [Mass/Vol] 167 mg/dL High 70 - 99 mg/dL [facility] Interpretation and review of laboratory results Abnormal [facility] Glucose by meterOrdered By: Background Lab on 01-30-2024 Glucose [Mass/Vol] 95 mg/dL 70 - 99 mg/dL [facility] Interpretation and review of laboratory results Normal [facility] GLUCOSE BY METERon 4 Glucose [Mass/Vol] 142 mg/dL High 70-99 [facility] Comment on above: Order Comment: Relea se to patient->Automatic Performed By: #### 2 [id number] ####SANDI Mayo ([id number])[facility] ([email or web address])[facility] [place] [address] [place] Glucose by meteron 4 Glucose [Mass/Vol] 142 mg/dL High [facility] Interpretation and review of laboratory results Abnormal [facility] GLUCOSE BY METERon 4 Glucose [Mass/Vol] 161 mg/dL High 70-99 [facility] Comment on above: Order Comment: Relea se to patient->Automatic Performed By: #### 2 516 ####SANDI BLACK W ([id number])[facility] ([employer])[facility] [place] [address] [place] Glucose [Mass/Vol] 94 mg/dL Normal 70-99 [facility] Comment on above: Order Comment: Relea se to patient->Automatic Performed By: #### 2 516 ####SANDI Mayo ([id number])[facility] [place] [address] [place] Glucose [Mass/Vol] 115 mg/dL High 70-99 [facility] Comment on above: Order Comment: Relea se to patient->Automatic Performed By: #### 2 516 ####SANDI BLACK W ([id number])[facility] ([employer])[facility] [place] [address] [place] Glucose [Mass/Vol] 175 mg/dL High 70-99 [facility] Comment on above: Order Comment: Relea se to patient->Automatic Performed By: #### 2 516 ####SANDI Mayo ([id number])[facility] ([employer])[address] Glucose by meteron Glucose [Mass/Vol] 161 mg/dL High [facility] Interpretation and review of laboratory results Abnormal [facility] Glucose [Mass/Vol] 94 mg/dL [facility] Interpretation and review of laboratory results Normal [facility] Glucose [Mass/Vol] 115 mg/dL High [facility] Interpretation and review of laboratory results Abnormal [facility] Glucose [Mass/Vol] 175 mg/dL High [facility] Interpretation and review of laboratory results Abnormal [facility] COMPLETE BLOOD COUNT WITH DI FFERENTIALon 12-29-2023 Basophils (Bld) [#/Vol] 0.03 10*3/uL Normal 0.02-0.06 [facility] Comment on above: Order Comment: Relea se to patient->Automatic Performed By: #### 1 001 ####SANDI Mayo ([id number])[facility] ([facility])[address] [place] [id number] [place] Basophils/100 WBC (Bld) 0.3 % Normal 0.3-0.9 [facility] Comment on above: Order Comment: Relea se to patient->Automatic Performed By: #### 1 001 ####SANDI Mayo ([id number])[facility] ([employer])[place] [address] [place] Eosinophils (Bld) [#/Vol] 0.34 10*3/uL High 0.04-0.27 [facility] Comment on above: Order Comment: Relea se to patient->Automatic Performed By: #### 1 001 ####SANDI BLACK W ([id number])[facility] ([employer])[place] [address] [place] Eosinophils/100 WBC (Bld) 2.9 % Normal 0.6-3.8 [facility] Comment on above: Order Comment: Relea se to patient->Automatic Performed By: #### 1 001 ####SANDI BACCON W ([id number])[facility] ([employer])[address] Erythrocyte distribution width (RBC) [Ratio] 15.6 % High 11.9-14.8 [facility] Comment on above: Order Comment: Relea se to patient->Automatic Performed By: #### 1 001 ####SANDI BACCON W ([id number])[facility] ([employer])[address] Hematocrit (Bld) [Volume fraction] 30.4 % Low 35.5-44.6 [facility] Comment on above: Order Comment: Relea se to patient->Automatic Performed By: #### 1 001 ####SANDI FanboutsCON W ([id number])[employer] ([employer])[address] Hemoglobin (Bld) [Mass/Vol] 9.5 g/dL Low 11.4-14.8 [facility] Comment on above: Order Comment: Relea se to patient->Automatic Performed By: #### 1 001 ####SANDI FanboutsMARIAH W ([id number])[employer] ([employer])[address] Immature granulocytes/100 WBC (Bld) 1.5 % High 0.2-0.5 [facility] Comment on above: Order Comment: Relea se to patient->Automatic Result Comment: Linda ture Granulocyte Percent includes promyelocytes, myelocytes,and metamyelocytes. IG% > 1.0 indicates a left shift is present. With automated differentials, bands are included in the neutrophil count and not in the Immature Granulocyte Percent. Performed By: #### 1 001 ####SANDI BACCON W ([id number])[facility] ([employer])[address] Lymphocytes (Bld) [#/Vol] 3.43 10*3/uL High 1.51-2.99 [facility] Comment on above: Order Comment: Relea se to patient->Automatic Performed By: #### 1 001 ####SANDI BACCON W ([id number])[employer] ([employer])[address] Lymphocytes/100 WBC (Bld) 29.4 % Normal 21.8-42.1 [facility] Comment on above: Order Comment: Relea se to patient->Automatic Performed By: #### 1 001 ####SANDI BACCON W ([id number])[facility] ([employer])[address] MCH (RBC) [Entitic mass] 27.5 pg Normal 25.7-31.2 [facility] Comment on above: Order Comment: Relea se to patient->Automatic Performed By: #### 1 001 ####SANDI BACCON W ([id number])[facility] ([employer])[address] MCHC 31.3 % Normal 31.3-34.0 [facility] Comment on above: Order Comment: Relea se to patient->Automatic Performed By: #### 1 001 ####SANDI BACCON W ([id number])[facility] ([employer])[address] MCV (RBC) [Entitic vol] 88.1 fL Normal 80.7-93.7 [facility] Comment on above: Order Comment: Relea se to patient->Automatic Performed By: #### 1 001 ####SANDI BACMARIAH W ([id number])[facility] ([employer])[address] Monocytes (Bld) [#/Vol] 0.78 10*3/uL High 0.36-0.77 [facility] Comment on above: Order Comment: Relea se to patient->Automatic Performed By: #### 1 001 ####SANDI BACCON W ([id number])[facility] ([employer])[address] Monocytes/100 WBC (Bld) 6.7 % Normal 5.6-10.2 [facility] Comment on above: Order Comment: Relea se to patient->Automatic Performed By: #### 1 001 ####SANDI BACCON W ([id number])[facility] ([place] [address] [place] Neutrophils (Bld) [#/Vol] 6.92 10*3/uL High 2.43-6.42 [facility] Comment on above: Order Comment: Relea se to patient->Automatic Performed By: #### 1 001 ####SANDI BLACK W ([id number])[facility] ([employer])[address] Neutrophils/100 WBC (Bld) 59.2 % Normal 46.0-68.6 [facility] Comment on above: Order Comment: Relea se to patient->Automatic Performed By: #### 1 001 ####SANDI BLACK W ([id number])[facility] ([employer])[address] Nucleated RBC/100 WBC (Bld) [Ratio] 0.0 % Normal 0.0-0.0 [facility] Comment on above: Order Comment: Relea se to patient->Automatic Performed By: #### 1 001 ####SANDI BLACK W ([id number])[facility] ([employer])[address] Platelet mean volume (Bld) [Entitic vol] 9.7 fL Normal 9.6-11.9 [facility] Comment on above: Order Comment: Relea se to patient->Automatic Performed By: #### 1 001 ####SANDI BLACK W ([id number])[facility] ([employer])ONE [address] Platelets (Bld) [#/Vol] 305 10*3/uL Normal 150-400 [facility] Comment on above: Order Comment: Relea se to patient->Automatic Performed By: #### 1 001 ####SANDI BACCON W ([id number])[facility] ([employer])[address] RBC 3.45 10E12/L Low 4.03-4.91 [facility] Comment on above: Order Comment: Relea se to patient->Automatic Performed By: #### 1 001 ####SANDI BACMARIAH W ([id number])[facility] ([employer])[address] WBC (Bld) [#/Vol] 11.7 10*3/uL High 4.9-10.0 [facility] Comment on above: Order Comment: Relea se to patient->Automatic Performed By: #### 1 001 ####SANDI Mayo ([id number])[facility] ([facility])[address] Complete Blood Count with Di fferentialOrdered By: Eduarda Hearn on 12-29-2023 Basophils (Bld) [#/Vol] 0.03 10*3/uL [facility] Basophils/100 WBC (Bld) 0.3 % 0.3 - 0.9 % [facility] Eosinophils (Bld) [#/Vol] 0.34 10*3/uL High [facility] Eosinophils/100 WBC (Bld) 2.9 % 0.6 - 3.8 % [facility] Erythrocyte distribution width (RBC) [Ratio] 15.6 % High 11.9 - 14.8 % [facility] Hematocrit (Bld) [Volume fraction] 30.4 % Low 35.5 - 44.6 % [facility] Hemoglobin (Bld) [Mass/Vol] 9.5 g/dL Low 11.4 - 14.8 g/dL [facility] Immature granulocytes/100 WBC (Bld) 1.5 % High 0.2 - 0.5 % [facility] Interpretation and review of laboratory results Abnormal [facility] Lymphocytes (Bld) [#/Vol] 3.43 10*3/uL High [facility] Lymphocytes/100 WBC (Bld) 29.4 % 21.8 - 42.1 % [facility] MCH (RBC) [Entitic mass] 27.5 pg 25. 7 - 31.2 pg [facility] MCHC (RBC) [Mass/Vol] 31.3 % 31.3 - 34.0 % [facility] MCV (RBC) [Entitic vol] 88.1 fL 80.7 - 93.7 fL [facility] Monocytes (Bld) [#/Vol] 0.78 10*3/uL High [facility] Monocytes/100 WBC (Bld) 6.7 % 5.6 - 10.2 % [facility] Neutrophils (Bld) [#/Vol] 6.92 10*3/uL High [facility] Neutrophils/100 WBC (Bld) 59.2 % 46.0 - 68.6 % [facility] Nucleated RBC/100 WBC (Bld) [Ratio] 0 % 0.0 - 0.0 % [facility] Platelet mean volume (Bld) [Entitic vol] 9.7 fL 9.6 - 11.9 fL [facility] Platelets (Bld) [#/Vol] 305 10*3/uL [facility] RBC (Bld) [#/Vol] 3.45 10*6/uL Low [facility] WBC (Bld) [#/Vol] 11.7 10*3/uL [facility] GLUCOSE BY METERon Glucose [Mass/Vol] 147 mg/dL High [address] [place] [address] Comment on above: Order Comment: Relea se to patient->Automatic Performed By: #### 2 516 ####SANDI Mayo ([id number])[facility] [address] [place] Glucose [Mass/Vol] 124 mg/dL High [address] [place] [address] Comment on above: Order Comment: Relea se to patient->Automatic Performed By: #### 2 516 ####SANDI Mayo ([id number])[employer] ([place] [address] [place] Glucose [Mass/Vol] 170 mg/dL High [address] [place] [address] Comment on above: Order Comment: Relea se to patient->Automatic Performed By: #### 2 516 ####SANDI Mayo ([id number])[facility] ([place] [address] [place] Glucose [Mass/Vol] 169 mg/dL High [address] [place] [address] Comment on above: Order Comment: Relea se to patient->Automatic Performed By: #### 2 516 #### SANDI Mayo ([id number]) [facility] ([employer]) [place] [address] [place] Glucose [Mass/Vol] 159 mg/dL High 70-99 [facility] Comment on above: Order Comment: Relea se to patient->Automatic Performed By: #### 2 516 ####SANDI Mayo ([id number])[facility])[place] [address] [place] Glucose by meteron Glucose [Mass/Vol] 147 mg/dL High [facility] Interpretation and review of laboratory results Abnormal [facility] Glucose [Mass/Vol] 124 mg/dL High [facility] Interpretation and review of laboratory results Abnormal [facility] Glucose [Mass/Vol] 170 mg/dL High [facility] Interpretation and review of laboratory results Abnormal [facility] Glucose [Mass/Vol] 169 mg/dL High [facility] Interpretation and review of laboratory results Abnormal [facility] Glucose [Mass/Vol] 159 mg/dL High [facility] Interpretation and review of laboratory results Abnormal [facility] RENAL FUNCTION PANELon 12-28 Albumin [Mass/Vol] 3.2 g/dL Low 3.5-5.0 [facility] Comment on above: Order Comment: Relea se to patient->Automatic Result Comment: Veri fied By: [id number] Performed By: #### 3 831 ####SANDI Mayo ([id number])[facility])[place] [address] [place] Calcium [Mass/Vol] 9.2 mg/dL Normal 7.6-11.0 [facility] Comment on above: Order Comment: Relea se to patient->Automatic Result Comment: Veri fied By: [id number] Performed By: #### 3 831 ####SANDI Mayo ([id number])[facility])[place] [address] [place] Chloride [Moles/Vol] 102 mmol/L Normal 96-108 [facility] Comment on above: Order Comment: Relea se to patient->Automatic Result Comment: Veri fied By: [id number] Performed By: #### 3 831 ####SANDI BLACK W ([id number])[facility] ([employer])[place] [address] [place] CO2 [Moles/Vol] 24.8 mmol/L Normal 22.0-29.0 [facility] Comment on above: Order Comment: Relea se to patient->Automatic Result Comment: Veri fied By: [id number] Performed By: #### 3 831 ####SANDI FanboutsMARIAH W ([id number])[facility] ([employer])[facility] [place] [address] [place] Creatinine [Mass/Vol] 0.60 mg/dL Normal 0.50-1.00 [facility] Comment on above: Order Comment: Relea se to patient->Automatic Result Comment: Veri fied By: [id number] Performed By: #### 3 831 ####SANDI FanboutsMARIAH W ([id number])[facility] ([employer])[facility] [place] [address] [place] GFR/1.73 sq M.predicted among non-blacks MDRD (S/P/Bld) [Vol rate/Area] mL/min/{1.73_m2} Normal >=60 [facility] Comment on above: Order Comment: Relea se to patient->Automatic Performed By: #### 3 831 ####SANDI FanboutsMARIAH W ([id number])[facility] ([employer])[facility] [place] [address] [place] Glucose [Mass/Vol] 168 mg/dL High 70-99 [facility] Comment on above: Order Comment: Relea se to patient->Automatic Result Comment: Estephanie roman for Diagnosis of Diabetes: Fasting Specimen (no caloric intake for at least 8 hours): <100 mg/dL Normal 100-125 mg/dL Increased risk for Diabetes >125 mg/dL Diagnostic for Diabetes Random Glucose (any time of day without regard to last meal): > or = 200 mg/dL plus Classic Symptoms of Diabetes Verified By: [id number] Performed By: #### 3 831 ####SANDI BLACK W ([id number])[facility] ([facility])[place] [address] [facility] Phosphate [Mass/Vol] 3.8 mg/dL Normal 2.7-4.5 [facility] Comment on above: Order Comment: Relea se to patient->Automatic Result Comment: Veri fied By: [id number] Performed By: #### 3 831 ####SANDI BLACK W ([id number])[facility] ([facility])[place] [address] [facility] Potassium [Moles/Vol] 3.8 mmol/L Normal 3.3-5.1 [facility] Comment on above: Order Comment: Relea se to patient->Automatic Result Comment: Veri fied By: [id number] Performed By: #### 3 831 ####SANDI BACMARIAH W ([id number])[facility] ([facility])[place] [address] [place] Sodium [Moles/Vol] 138 mmol/L Normal 133-145 [facility] Comment on above: Order Comment: Relea se to patient->Automatic Result Comment: Veri fied By: [id number] Performed By: #### 3 831 ####SANDI BLACK W ([id number])[facility] ([facility])[place] [address] [facility] Urea nitrogen [Mass/Vol] 21 mg/dL High 4-19 [facility] Comment on above: Order Comment: Relea se to patient->Automatic Result Comment: Veri fied By: [id number] Performed By: #### 3 831 ####SANDI BACMARIAH W ([id number])[facility] ([facility])ONE [facility] [place] [address] [facility] Renal function panelon 12-28 Albumin BCG dye [Mass/Vol] 3.2 g/dL Low [facility] Calcium [Mass/Vol] 9.2 mg/dL [facility] Chloride [Moles/Vol] 102 mmol/L [facility] Creatinine [Mass/Vol] 0.6 mg/dL [facility] eGFR - PINF [facility] Glucose [Mass/Vol] 168 mg/dL High [facility] HCO3 (P) [Moles/Vol] 24.8 [facility] Interpretation and review of laboratory results Abnormal [facility] Phosphate [Mass/Vol] 3.8 mg/dL [facility] Potassium (BldA) [Moles/Vol] 3.8 mmol/L 3.3 - 5.1 mmol/L [facility] Sodium [Moles/Vol] 138 mmol/L 133 - 145 mmol/L [facility] Urea nitrogen [Mass/Vol] 21 mg/dL High [facility] GLUCOSE BY METERon 4 Glucose [Mass/Vol] 159 mg/dL High 70-99 [facility] Comment on above: Order Comment: Relea se to patient->Automatic Performed By: #### 2 516 ####SANDI Mayo ([id number])[facility] ([facility])[place] [address] [place] Glucose [Mass/Vol] 132 mg/dL High 70-99 [facility] Comment on above: Order Comment: Relea se to patient->Automatic Performed By: #### 2 516 ####SANDI Mayo ([id number])[facility] ([facility] [place] [address] [place] Glucose [Mass/Vol] 89 mg/dL Normal 70-99 [facility] Comment on above: Order Comment: Relea se to patient->Automatic Performed By: #### 2 516 ####SANDI BLACK W ([id number])[facility] ([facility] [place] [address] [place] Glucose [Mass/Vol] 172 mg/dL High 70-99 [facility] Comment on above: Order Comment: Relea se to patient->Automatic Performed By: #### 2 516 ####SANDI BLACK W ([id number])[facility] ([facility] [place] [address] [place] Glucose by meteron 4 Glucose [Mass/Vol] 159 mg/dL High [facility] Interpretation and review of laboratory results Abnormal [facility] Glucose [Mass/Vol] 132 mg/dL High [facility] Interpretation and review of laboratory results Abnormal [facility] Glucose [Mass/Vol] 89 mg/dL [facility] Interpretation and review of laboratory results Normal [facility] Glucose [Mass/Vol] 172 mg/dL High [facility] Interpretation and review of laboratory results Abnormal [facility] LOW MOLECULAR WEIGHT HEPARIN ANTI-XAon 12-28-2023 Low Molecular Weight Heparin Anti-XA 0.22 IU/ML Normal [facility] Comment on above: Order Comment: Relea se to patient->Automatic Result Comment: Prop hylaxis 0.2-0.4 IU/mL Therapeutic ?0.6-1.2 IU/mL Performed By: #### 1 998 ####SANDI Mayo ([id number])[facility] ([address] Low Molecular Weight Heparin Anti-Xa (Time sensitive lab, please ensure timing is correct)on 12-28-2023 LMW Heparin Coag Qn (PPP) 0.22 IU/ML [facility] No Panel InformationOrdered By: Lisseth Roberts on 12-28-2023 Influenza A Result Negative Negative [facility] SARS-COV-2/FLU A-B/RSV PCR 4 -PLEXon 12-28-2023 SARS-CoV-2 (COVID-19) Ab IA Ql SARS-COV-2 Result Negative Influenza A Result Negative Influenza B Result Negative RSV Result Negative Normal Negative [facility] Comment on above: Order Comment: Negat park results do not preclude infection by Influenza,RSV, or SARS-CoV-2, and should not be used as the solebasis for treatment or other patient management decisions.Negative results must be combined with clinical observations,patient history, and epidemiological information.Positive results are indicative of active or recentinfection with the detected target(s). Clinical correlationwith patient history and other diagnostic information isnecessary to determine patient infection status. Positiveresults do not rule out bacterial infection or co-infectionwith other viruses. The agent detected may not be thedefinite cause of disease.Method: Real-time RT-PCR for the qualitative detection ofInfluenza A, Influenza B, RSV and SARS-CoV-2 nucleic acidsusing the Xpert Xpress Flu A/Flu B/RSV/SARS-CoV-2 plus Assayfrom [employer].Release to patient->Automatic Performed By: #### 5 827 ####SANDI Mayo ([id number])[facility])[address] SARS-CoV-2/Flu A-B/RSV PCR ( 4-PLEX)Ordered By: Lisseth Roberts on 12-28-2023 Interpretation and review of laboratory results Normal [facility] SARS-CoV-2 (COVID-19) RNA YADI+probe Ql (Unsp spec) Negative Negative [facility] XR Chest Single viewon 12-27 [facility] Radiology Study observation (narrative) [facility] XR Chest Single viewOrdered By: Kenny Dela Cruz on 12-28-2023 [facility] Work Phone: GLUCOSE BY METERon 4 Glucose [Mass/Vol] 151 mg/dL High 70-99 [facility] Comment on above: Order Comment: Relea se to patient->Automatic Performed By: #### 2 516 ####SANDI Mayo ([id number])[facility])[address] [place] [id number] [place] Glucose [Mass/Vol] 155 mg/dL High 70-99 [facility] Comment on above: Order Comment: Relea se to patient->Automatic Performed By: #### 2 516 ####SANDI Mayo ([id number])[facility] [address] [place] Glucose [Mass/Vol] 136 mg/dL High 70-99 [facility] Comment on above: Order Comment: Relea se to patient->Automatic Performed By: #### 2 516 ####SANDI Mayo ([id number])[facility] ([facility])ONE [address] Glucose by meteron Glucose [Mass/Vol] 151 mg/dL High [facility] Interpretation and review of laboratory results Abnormal [facility] Glucose [Mass/Vol] 155 mg/dL High [facility] Interpretation and review of laboratory results Abnormal [facility] Glucose [Mass/Vol] 136 mg/dL High [facility] Interpretation and review of laboratory results Abnormal [facility] COMPLETE BLOOD COUNT WITH DI FFERENTIALon 12-26-2023 Basophils (Bld) [#/Vol] 0.03 10*3/uL Normal 0.02-0.06 [facility] Comment on above: Performed By: #### 1 001 ####SANDI Mayo ([id number])[facility] ([facility] [address] [place] Basophils/100 WBC (Bld) 0.4 % Normal 0.3-0.9 [facility] Comment on above: Performed By: #### 1 001 ####SANDI Mayo ([id number])[facility] ([facility])[address] [place] [place] [id number] [place] [address] Eosinophils (Bld) [#/Vol] 0.29 10*3/uL High 0.04-0.27 [facility] Comment on above: Performed By: #### 1 001 ####SANDI BLACK W ([id number])[facility] ([facility])[address] [place] [id number] [place] Eosinophils/100 WBC (Bld) 3.5 % Normal 0.6-3.8 [facility] Comment on above: Performed By: #### 1 001 ####SANDI BLACK W ([id number])[facility] ([facility])[address] [place] [id number] [place] Erythrocyte distribution width (RBC) [Ratio] 15.4 % High 11.9-14.8 [facility] Comment on above: Performed By: #### 1 001 ####SANDI Mayo ([id number])[facility] ([facility])[address] Hematocrit (Bld) [Volume fraction] 37.0 % Normal 35.5-44.6 [facility] Comment on above: Performed By: #### 1 001 ####SANDI Mayo ([id number])[facility] ([facility])ONE [address] Hemoglobin (Bld) [Mass/Vol] 11.5 g/dL Normal 11.4-14.8 [facility] Comment on above: Performed By: #### 1 001 ####SANDI Mayo ([id number])[facility] ([facility])ONE [address] Immature granulocytes/100 WBC (Bld) 0.8 % High 0.2-0.5 [facility] Comment on above: Result Comment: Linda ture Granulocyte Percent includes promyelocytes, myelocytes,and metamyelocytes. IG% > 1.0 indicates a left shift is present. With automated differentials, bands are included in the neutrophil count and not in the Immature Granulocyte Percent. Performed By: #### 1 001 ####SANDI Mayo ([id number])[facility] ([facility])[address] Lymphocytes (Bld) [#/Vol] 2.80 10*3/uL Normal 1.51-2.99 [facility] Comment on above: Performed By: #### 1 001 ####SANDI Mayo ([id number])[facility] [employer])[address] Lymphocytes/100 WBC (Bld) 33.6 % Normal 21.8-42.1 [facility] Comment on above: Performed By: #### 1 001 ####SANDI Mayo ([id number])[facility] ([email or web address])[address] MCH (RBC) [Entitic mass] 27.2 pg Normal 25.7-31.2 [facility] Comment on above: Performed By: #### 1 001 ####SANDI BACCON W ([id number])[facility] ([facility] [place] [address] [place] MCHC 31.1 % Low 31.3-34.0 [facility] Comment on above: Performed By: #### 1 001 ####SANDI BACCON W ([id number])[facility] ([facility])[place] [address] [place] MCV (RBC) [Entitic vol] 87.5 fL Normal 80.7-93.7 [facility] Comment on above: Performed By: #### 1 001 ####SANDI BACCON W ([id number])[facility] ([facility])[place] [address] [place] Monocytes (Bld) [#/Vol] 0.70 10*3/uL Normal 0.36-0.77 [facility] Comment on above: Performed By: #### 1 001 ####SANDI BACCON W ([id number])[facility] ([facility])[place] [address] [place] Monocytes/100 WBC (Bld) 8.4 % Normal 5.6-10.2 A [facility] Comment on above: Performed By: #### 1 001 ####SANDI BACCON W ([id number])[facility] ([facility])[place] [address] [place] Neutrophils (Bld) [#/Vol] 4.45 10*3/uL Normal 2.43-6.42 [facility] Comment on above: Performed By: #### 1 001 ####SANDI BACCON W ([id number])[facility] ([facility])[place] [address] [place] Neutrophils/100 WBC (Bld) 53.3 % Normal 46.0-68.6 [facility] Comment on above: Performed By: #### 1 001 ####SANDI BACCON W ([id number])[facility] ([facility])[place] [address] [place] Nucleated RBC/100 WBC (Bld) [Ratio] 0.0 % Normal 0.0-0.0 [facility] Comment on above: Performed By: #### 1 001 ####SANDI BLACK W ([id number])[facility] ([facility])ONE [address] Platelet mean volume (Bld) [Entitic vol] 9.8 fL Normal 9.6-11.9 [facility] Comment on above: Performed By: #### 1 001 ####SANDI BLACK W ([id number])[facility] ([facility])ONE [address] Platelets (Bld) [#/Vol] 273 10*3/uL Normal 150-400 [facility] Comment on above: Performed By: #### 1 001 ####SANDI BLACK W ([id number])[facility] ([facility])ONE [address] RBC 4.23 10E12/L Normal 4.03-4.91 [facility] Comment on above: Performed By: #### 1 001 ####SANDI BLACK W ([id number])[facility] ([facility])ONE [address] WBC (Bld) [#/Vol] 8.3 10*3/uL Normal 4.9-10.0 [facility] Comment on above: Performed By: #### 1 001 ####SANDI BLACK W ([id number])[facility] ([facility])[address] Complete Blood Count with Di fferentialOrdered By: Michelle Alegre on 12-26-2023 Basophils (Bld) [#/Vol] 0.03 10*3/uL [facility] Basophils/100 WBC (Bld) 0.4 % 0.3 - 0.9 % [facility] Eosinophils (Bld) [#/Vol] 0.29 10*3/uL High [facility] Eosinophils/100 WBC (Bld) 3.5 % 0.6 - 3.8 % [facility] Erythrocyte distribution width (RBC) [Ratio] 15.4 % High 11.9 - 14.8 % [facility] Hematocrit (Bld) [Volume fraction] 37 % 35.5 - 44.6 % [facility] Hemoglobin (Bld) [Mass/Vol] 11.5 g/dL 11.4 - 14.8 g/dL [facility] Immature granulocytes/100 WBC (Bld) 0.8 % High 0.2 - 0.5 % [facility] Interpretation and review of laboratory results Abnormal [facility] Lymphocytes (Bld) [#/Vol] 2.8 10*3/uL [facility] Lymphocytes/100 WBC (Bld) 33.6 % 21.8 - 42.1 % [facility] MCH (RBC) [Entitic mass] 27.2 pg 25. 7 - 31.2 pg [facility] MCHC (RBC) [Mass/Vol] 31.1 % Low 31.3 - 34.0 % [facility] MCV (RBC) [Entitic vol] 87.5 fL 80.7 - 93.7 fL [facility] Monocytes (Bld) [#/Vol] 0.7 10*3/uL [facility] Monocytes/100 WBC (Bld) 8.4 % 5.6 - 10.2 % [facility] Neutrophils (Bld) [#/Vol] 4.45 10*3/uL [facility] Neutrophils/100 WBC (Bld) 53.3 % 46.0 - 68.6 % [facility] Nucleated RBC/100 WBC (Bld) [Ratio] 0 % 0.0 - 0.0 % [facility] Platelet mean volume (Bld) [Entitic vol] 9.8 fL 9.6 - 11.9 fL [facility] Platelets (Bld) [#/Vol] 273 10*3/uL [facility] RBC (Bld) [#/Vol] 4.23 10*6/uL [facility] WBC (Bld) [#/Vol] 8.3 10*3/uL [facility] GLUCOSE BY METERon 4 Glucose [Mass/Vol] 228 mg/dL High 70-99 [facility] Comment on above: Order Comment: Relea se to patient->Automatic Performed By: #### 2 516 ####SANDI BLACK W ([id number])[facility] ([facility] [place] [address] [place] Glucose [Mass/Vol] 157 mg/dL High 70-[address] [place] [address] Comment on above: Order Comment: Relea se to patient->Automatic Performed By: #### 2 516 ####SANDI BACCON W ([id number])[facility] ([facility] [place] [address] [place] Glucose [Mass/Vol] 217 mg/dL High 70-99 [facility] Comment on above: Order Comment: Relea se to patient->Automatic Performed By: #### 2 516 ####SANDI BLACK W ([id number])[facility] [place] [address] [place] Glucose [Mass/Vol] 182 mg/dL High [address] Comment on above: Order Comment: Relea se to patient->Automatic Performed By: #### 2 516 ####SANDI BACMARIAH W ([id number])[facility] ([facility] [place] [address] [place] Glucose by meteron Glucose [Mass/Vol] 228 mg/dL High [facility] Interpretation and review of laboratory results Abnormal [facility] Glucose [Mass/Vol] 157 mg/dL High [facility] Interpretation and review of laboratory results Abnormal [facility] Glucose [Mass/Vol] 217 mg/dL High [facility] Interpretation and review of laboratory results Abnormal [facility] Glucose [Mass/Vol] 182 mg/dL High [facility] Interpretation and review of laboratory results Abnormal [facility] RENAL FUNCTION PANELon 12-25 Albumin [Mass/Vol] 3.6 g/dL Normal 3.5-5.0 [facility] Comment on above: Order Comment: Relea se to patient->Automatic Result Comment: Tata tracy By: [id number] Performed By: #### 3 831 ####SANDI BLACK W ([id number])[facility] ([facility])[place] [address] [place] Calcium [Mass/Vol] 9.8 mg/dL Normal 7.6-11.0 [facility] Comment on above: Order Comment: Relea se to patient->Automatic Result Comment: Veri fied By: [id number] Performed By: #### 3 831 ####SANDI BACMARIAH W ([id number])[facility] ([facility])[place] [address] [place] Chloride [Moles/Vol] 102 mmol/L Normal 96-108 [facility] Comment on above: Order Comment: Relea se to patient->Automatic Result Comment: Veri fied By: [id number] Performed By: #### 3 831 ####SANDI BACMARIAH W ([id number])[facility] [address] [place] CO2 [Moles/Vol] 27.5 mmol/L Normal 22.0-29.0 [facility] Comment on above: Order Comment: Relea se to patient->Automatic Result Comment: Veri fied By: [id number] Performed By: #### 3 831 ####SANDI BLACK W ([id number])[facility] [address] [place] Creatinine [Mass/Vol] 0.54 mg/dL Normal 0.50-1.00 [facility] Comment on above: Order Comment: Relea se to patient->Automatic Result Comment: Veri fied By: [id number] Performed By: #### 3 831 ####SANDI BLACK W ([id number])[facility] ([facility] [address] [place] GFR/1.73 sq M.predicted among non-blacks MDRD (S/P/Bld) [Vol rate/Area] mL/min/{1.73_m2} Normal >=60 [facility] Comment on above: Order Comment: Relea se to patient->Automatic Performed By: #### 3 831 ####SANDI BACMARIAH W ([id number])[facility] ([facility] [place] [address] [place] Glucose [Mass/Vol] 182 mg/dL High 70-99 [facility] Comment on above: Order Comment: Relea se to patient->Automatic Result Comment: Estephanie roman for Diagnosis of Diabetes: Fasting Specimen (no caloric intake for at least 8 hours): <100 mg/dL Normal 100-125 mg/dL Increased risk for Diabetes >125 mg/dL Diagnostic for Diabetes Random Glucose (any time of day without regard to last meal): > or = 200 mg/dL plus Classic Symptoms of Diabetes Verified By: [id number] Performed By: #### 3 831 ####SANDI BLACK W ([id number])[facility] ([facility])[address] [facility] [place] [address] [place] Phosphate [Mass/Vol] 3.9 mg/dL Normal 2.7-4.5 [facility] Comment on above: Order Comment: Relea se to patient->Automatic Result Comment: Veri fied By: [id number] Performed By: #### 3 831 ####SANDI BLACK W ([id number])[facility] ([facility] [place] [address] [place] Potassium [Moles/Vol] 4.6 mmol/L Normal 3.3-5.1 [facility] Comment on above: Order Comment: Relea se to patient->Automatic Result Comment: Veri fied By: [id number] Performed By: #### 3 831 ####SANDI BACMARIAH W ([id number])[facility] ([facility])[address] [facility] [place] [address] [place] Sodium [Moles/Vol] 140 mmol/L Normal 133-145 [facility] Comment on above: Order Comment: Relea se to patient->Automatic Result Comment: Veri fied By: [id number] Performed By: #### 3 831 ####SANDI BACMARIAH W ([id number])[facility] ([facility])[address] [facility] [place] [address] [place] Urea nitrogen [Mass/Vol] 22 mg/dL High 4-19 [facility] Comment on above: Order Comment: Relea se to patient->Automatic Result Comment: Veri fied By: [id number] Performed By: #### 3 831 ####SANDI Mayo ([id number])[facility] ([facility])[address] [place] [id number] [facility] Renal function panelon 12-25 Albumin BCG dye [Mass/Vol] 3.6 g/dL [facility] Calcium [Mass/Vol] 9.8 mg/dL [facility] Chloride [Moles/Vol] 102 mmol/L [facility] Creatinine [Mass/Vol] 0.54 mg/dL [facility] eGFR - PINF [facility] Glucose [Mass/Vol] 182 mg/dL High [facility] HCO3 (P) [Moles/Vol] 27.5 [facility] Interpretation and review of laboratory results Abnormal [facility] Phosphate [Mass/Vol] 3.9 mg/dL [facility] Potassium (BldA) [Moles/Vol] 4.6 mmol/L 3.3 - 5.1 mmol/L [facility] Sodium [Moles/Vol] 140 mmol/L 133 - 145 mmol/L [facility] Urea nitrogen [Mass/Vol] 22 mg/dL High [facility] GLUCOSE BY METERon 4 Glucose [Mass/Vol] 150 mg/dL High 70-99 [facility] Comment on above: Order Comment: Relea se to patient->Automatic Performed By: #### 2 516 ####SANDI Mayo ([id number])[facility] ([facility])[place] [address] [place] Glucose [Mass/Vol] 123 mg/dL High 70-99 [facility] Comment on above: Order Comment: Relea se to patient->Automatic Performed By: #### 2 516 ####SANDI Mayo ([id number])[facility] ([facility])[place] [address] [place] Glucose [Mass/Vol] 154 mg/dL High 70-99 [facility] Comment on above: Order Comment: Relea se to patient->Automatic Performed By: #### 2 516 ####SANDI Mayo ([id number])[facility] ([facility])ONE [facility] [place] [address] [place] Glucose [Mass/Vol] 185 mg/dL High 70-99 [facility] Comment on above: Order Comment: Relea se to patient->Automatic Performed By: #### 2 516 ####SANDI Mayo ([id number])[facility] ([facility])[place] [address] [place] Glucose by meteron Glucose [Mass/Vol] 150 mg/dL High [facility] Interpretation and review of laboratory results Abnormal [facility] Glucose [Mass/Vol] 123 mg/dL High [facility] Interpretation and review of laboratory results Abnormal [facility] Glucose [Mass/Vol] 154 mg/dL High [facility] Interpretation and review of laboratory results Abnormal [facility] Glucose [Mass/Vol] 185 mg/dL High [facility] Interpretation and review of laboratory results Abnormal [facility] TYPE AND SCREENon 12-25-2023 ABO TYPE A Normal [facility] Comment on above: Order Comment: Relea se to patient->Automatic Performed By: #### 6 573 ####WANDY Moon ([id number])[facility] ([facility])[place] [address] [facility] Direct Antiglobulin Test Negative Normal [facility] Comment on above: Order Comment: Relea se to patient->Automatic Performed By: #### 6 573 ####WANDY Moon ([id number])[facility] ([facility])[place] [address] [place] Rh Type Positive Normal [facility] Comment on above: Order Comment: Relea se to patient->Automatic Performed By: #### 6 573 ####WANDY Moon ([id number])[facility] ([email or web address])ONE [facility] [place] [address] [place] Screening Cells Negative Normal [facility] Comment on above: Order Comment: Relea se to patient->Automatic Performed By: #### 6 573 ####WANDY BHARTI Moon ([id number])[facility] ([facility])ONE [facility] [place] [address] [place] Type & Screenon 12-25-2023 ABO group Nom (Bld) A [facility] Blood group antibody screen Ql Negative [facility] Direct antiglobulin test.poly specific reagent Ql (RBC) Negative [facility] Rh Nom (Bld) Positive [facility] GLUCOSE BY METERon 4 Glucose [Mass/Vol] 194 mg/dL High 70-99 [facility] Comment on above: Order Comment: Relea se to patient->Automatic Performed By: #### 2 516 ####SANDI BLACK W ([id number])[facility] ([facility])ONE [facility] [place] [address] [place] Glucose [Mass/Vol] 148 mg/dL High 7099 [facility] Comment on above: Order Comment: Relea se to patient->Automatic Performed By: #### 2 516 ####SANDI BLACK W ([id number])[facility] ([facility])ONE [facility] [place] [address] [place] Glucose [Mass/Vol] 135 mg/dL High 70-99 [facility] Comment on above: Order Comment: Relea se to patient->Automatic Performed By: #### 2 516 ####SANDI BACCON W ([id number])[facility] ([facility])ONE [facility] [place] [address] [place] Glucose [Mass/Vol] 205 mg/dL High 70-99 [facility] Comment on above: Order Comment: Relea se to patient->Automatic Performed By: #### 2 516 ####SANDI BACCON W ([id number])[facility] ([facility])ONE [facility] [place] [address] [place] Glucose by meteron 4 Glucose [Mass/Vol] 194 mg/dL High [facility] Interpretation and review of laboratory results Abnormal [facility] Interpretation and review of laboratory results Abnormal [facility] Glucose [Mass/Vol] 135 mg/dL High [facility] Interpretation and review of laboratory results Abnormal [facility] Glucose [Mass/Vol] 205 mg/dL High [facility] Interpretation and review of laboratory results Abnormal [facility] LOW MOLECULAR WEIGHT HEPARIN ANTI-XAon 12-24-2023 Low Molecular Weight Heparin Anti-XA 0.17 IU/ML Normal [facility] Comment on above: Order Comment: Relea se to patient->Automatic Result Comment: Prop hylaxis 0.2-0.4 IU/mL Therapeutic ?0.6-1.2 IU/mL Performed By: #### 1 998 ####SANDI Mayo ([id number])[facility] ([facility])[address] Low Molecular Weight Heparin Anti-Xa (Time sensitive lab, please ensure timing is correct)Ordered By: Nano Presley on 12-24-2023 LMW Heparin Coag Qn (PPP) 0.17 IU/ML [facility] COMPLETE BLOOD COUNT WITH DI FFERENTIALOrdered By: Johanna Orourke on 12-23-2023 Basophils (Bld) [#/Vol] 0.02 10*3/uL Normal 0.02-0.06 [facility] Comment on above: Performed By: #### 1 001 ####SANDI Mayo ([id number])[facility] [place])ONE [address] Basophils/100 WBC (Bld) 0.2 % Low 0.3-0.9 [facility] Comment on above: Performed By: #### 1 001 ####SANDI Mayo ([id number])[facility] [place])ONE [address] Eosinophils (Bld) [#/Vol] 0.31 10*3/uL High 0.04-0.27 [facility] Comment on above: Performed By: #### 1 001 ####SANDI Mayo ([id number])[facility] [place] [address] [place] Eosinophils/100 WBC (Bld) 3.7 % Normal 0.6-3.8 [facility] Comment on above: Performed By: #### 1 001 ####SANDI Mayo ([id number])[facility] ([facility])ONE [address] Erythrocyte distribution width (RBC) [Ratio] 15.8 % High 11.9-14.8 [facility] Comment on above: Performed By: #### 1 001 ####SANDI Mayo ([id number])[facility] ([facility])ONE [address] Hemoglobin (Bld) [Mass/Vol] 11.4 g/dL Normal 11.4-14.8 [facility] Comment on above: Performed By: #### 1 001 ####SANDI Mayo ([id number])[facility] ([facility])ONE [address] Immature granulocytes/100 WBC (Bld) 1.2 % High 0.2-0.5 [facility] Comment on above: Result Comment: Linda ture Granulocyte Percent includes promyelocytes, myelocytes,and metamyelocytes. IG% > 1.0 indicates a left shift is present. With automated differentials, bands are included in the neutrophil count and not in the Immature Granulocyte Percent. Performed By: #### 1 001 ####SANDI Mayo ([id number])[facility] ([facility])ONE [address] Lymphocytes (Bld) [#/Vol] 3.54 10*3/uL High 1.51-2.99 [facility] Comment on above: Performed By: #### 1 001 ####SANDI FanboutsMARIAH W ([id number])[facility] ([email or web address])ONE [address] Lymphocytes/100 WBC (Bld) 42.3 % High 21.8-42.1 [facility] Comment on above: Performed By: #### 1 001 ####SANDI BLACK W ([id number])[facility] ([email or web address])ONE [address] MCH (RBC) [Entitic mass] 27.8 pg Normal 25.7-31.2 [facility] Comment on above: Performed By: #### 1 001 ####SANDI BLACK W ([id number])[facility] ([facility])[address] [place] [place] [id number] [place] [address] MCV (RBC) [Entitic vol] 87.8 fL Normal 80.7-93.7 [facility] Comment on above: Performed By: #### 1 001 ####SANDI BACCON W ([id number])[facility] ([email or web address])[place] [address] [place] Monocytes/100 WBC (Bld) 8.4 % Normal 5.6-10.2 [facility] Comment on above: Performed By: #### 1 001 ####SANDI BLACK W ([id number])[facility] ([facility])[place] [address] [facility] Neutrophils (Bld) [#/Vol] 3.69 10*3/uL Normal 2.43-6.42 [facility] Comment on above: Performed By: #### 1 001 ####SANDI BLACK W ([id number])[facility] ([facility])[place] [address] [facility] Neutrophils/100 WBC (Bld) 44.2 % Low 46.0-68.6 [facility] Comment on above: Performed By: #### 1 001 ####SANDI BACCON W ([id number])[facility] ([email or web address])[place] [address] [place] Nucleated RBC/100 WBC (Bld) [Ratio] 0.4 % High 0.0-0.0 [facility] Comment on above: Performed By: #### 1 001 ####SANDI BACCON W ([id number])[facility] ([email or web address])[place] [address] [place] Platelet mean volume (Bld) [Entitic vol] 10.4 fL Normal 9.6-11.9 [facility] Comment on above: Performed By: #### 1 001 ####SANDI BACCON W ([id number])[facility] ([facility])ONE [address] Platelets (Bld) [#/Vol] 175 10*3/uL Normal 150-400 [facility] Comment on above: Performed By: #### 1 001 ####SANDI BLACK W ([id number])[facility] ([facility]ONE [address] WBC (Bld) [#/Vol] 8.4 10*3/uL Normal 4.9-10.0 [facility] Comment on above: Performed By: #### 1 001 ####SANDI BLACK W ([id number])[facility] ([facility])ONE [address] COMPLETE BLOOD COUNT WITH DI FFERENTIALon 12-23-2023 Hematocrit (Bld) [Volume fraction] 36.0 % Normal 35.5-44.6 [facility] Comment on above: Performed By: #### 1 001 ####SANDI BLACK W ([id number])[facility] ([facility])ONE [address] MCHC 31.7 % Normal 31.3-34.0 [facility] Comment on above: Performed By: #### 1 001 ####SANDI BLACK W ([id number])[facility] ([facility])ONE [address] Monocytes (Bld) [#/Vol] 0.70 10*3/uL Normal 0.36-0.77 [facility] Comment on above: Performed By: #### 1 001 ####SANDI BACCON W ([id number])[facility] ([facility])ONE [address] RBC 4.10 10E12/L Normal 4.03-4.91 [facility] Comment on above: Performed By: #### 1 001 ####SANDI BACCON W ([id number])[facility] ([facility])ONE [address] Complete Blood Count with Di fferentialOrdered By: Johanna Orourke on 12-23-2023 Hematocrit (Bld) [Volume fraction] 36 % 35.5 - 44.6 % [facility] Interpretation and review of laboratory results Abnormal [facility] MCHC (RBC) [Mass/Vol] 31.7 % 31.3 - 34.0 % [facility] Monocytes (Bld) [#/Vol] 0.7 10*3/uL [facility] RBC (Bld) [#/Vol] 4.1 10*6/uL [facility] GLUCOSE BY METERon 4 Glucose [Mass/Vol] 207 mg/dL High 70-99 [facility] Comment on above: Order Comment: Relea se to patient->Automatic Performed By: #### 2 516 ####SANDI BLACK W ([id number])[facility] ([facility])ONE [facility] [place] [address] [place] Glucose [Mass/Vol] 116 mg/dL High 70-99 [facility] Comment on above: Order Comment: Relea se to patient->Automatic Performed By: #### 2 516 ####SANDI BLACK W ([id number])[facility] ([facility] [place] [address] [place] Glucose [Mass/Vol] 171 mg/dL High 70-99 [facility] Comment on above: Order Comment: Relea se to patient->Automatic Performed By: #### 2 516 ####SANDI BLACK W ([id number])[facility] ([facility] [place] [address] [place] Glucose [Mass/Vol] 197 mg/dL High 70-99 [facility] Comment on above: Order Comment: Relea se to patient->Automatic Performed By: #### 2 516 ####SANDI BLACK W ([id number])[facility] ([facility] [address] [place] Glucose by meteron 4 Glucose [Mass/Vol] 207 mg/dL High [facility] Interpretation and review of laboratory results Abnormal [facility] Glucose [Mass/Vol] 116 mg/dL High [facility] Interpretation and review of laboratory results Abnormal [facility] Glucose [Mass/Vol] 171 mg/dL High [facility] Interpretation and review of laboratory results Abnormal [facility] Glucose [Mass/Vol] 197 mg/dL High [facility] Interpretation and review of laboratory results Abnormal [facility] RENAL FUNCTION PANELon 12-22 Albumin [Mass/Vol] 3.1 g/dL Low 3.5-5.0 [facility] Comment on above: Order Comment: Relea se to patient->Automatic Result Comment: Virgiei fied By: [id number] Performed By: #### 3 831 ####SANDI BACCON W ([id number])[facility] ([facility])[place] [address] [place] Calcium [Mass/Vol] 9.1 mg/dL Normal 7.6-11.0 [facility] Comment on above: Order Comment: Relea se to patient->Automatic Result Comment: Virgiei fied By: [id number] Performed By: #### 3 831 ####SANDI BACCON W ([id number])[facility] ([facility])[place] [address] [place] Chloride [Moles/Vol] 103 mmol/L Normal 96-108 [facility] Comment on above: Order Comment: Relea se to patient->Automatic Result Comment: Virgiei fied By: [id number] Performed By: #### 3 831 ####SANDI BACCON W ([id number])[facility] ([email or web address])[place] [address] [place] CO2 [Moles/Vol] 27.1 mmol/L Normal 22.0-29.0 [facility] Comment on above: Order Comment: Relea se to patient->Automatic Result Comment: Virgiei fied By: [id number] Performed By: #### 3 831 ####SANDI BACCON W ([id number])[facility] ([email or web address])[place] [address] [place] Creatinine [Mass/Vol] 0.49 mg/dL Low 0.50-1.00 [facility] Comment on above: Order Comment: Relea se to patient->Automatic Result Comment: Tata fied By: [id number] Performed By: #### 3 831 ####SANDI BLACK W ([id number])[facility] ([facility])[place] [address] [place] GFR/1.73 sq M.predicted among non-blacks MDRD (S/P/Bld) [Vol rate/Area] mL/min/{1.73_m2} Normal >=60 [facility] Comment on above: Order Comment: Relea se to patient->Automatic Performed By: #### 3 831 ####SANDI BLACK W ([id number])[facility] ([facility])[place] [address] [place] Glucose [Mass/Vol] 167 mg/dL High 70-99 [facility] Comment on above: Order Comment: Relea se to patient->Automatic Result Comment: Crit eria for Diagnosis of Diabetes: Fasting Specimen (no caloric intake for at least 8 hours): <100 mg/dL Normal 100-125 mg/dL Increased risk for Diabetes >125 mg/dL Diagnostic for Diabetes Random Glucose (any time of day without regard to last meal): > or = 200 mg/dL plus Classic Symptoms of Diabetes Verified By: [id number] Performed By: #### 3 831 ####SANDI BLACK W ([id number])[facility] ([facility])[place] [address] [place] Phosphate [Mass/Vol] 2.8 mg/dL Normal 2.7-4.5 [facility] Comment on above: Order Comment: Relea se to patient->Automatic Result Comment: Veri fied By: [id number] Performed By: #### 3 831 ####SANDI BLACK W ([id number])[facility] ([facility])[place] [address] [place] Potassium [Moles/Vol] 4.1 mmol/L Normal 3.3-5.1 [facility] Comment on above: Order Comment: Relea se to patient->Automatic Result Comment: Veri fied By: [id number] Performed By: #### 3 831 ####SANDI BLACK W ([id number])[facility] ([facility])[place] [address] [place] Sodium [Moles/Vol] 139 mmol/L Normal 133-145 [facility] Comment on above: Order Comment: Relea se to patient->Automatic Result Comment: Veri fied By: [id number] Performed By: #### 3 831 ####SANDI Mayo ([id number])[facility] ([facility])ONE [address] Urea nitrogen [Mass/Vol] 16 mg/dL Normal 4- [facility] Comment on above: Order Comment: Relea se to patient->Automatic Result Comment: Veri fied By: [id number] Performed By: #### 3 831 ####SANDI Mayo ([id number])[facility] ([facility])[address] Renal function panelon 12-22 Albumin BCG dye [Mass/Vol] 3.1 g/dL Low [facility] Calcium [Mass/Vol] 9.1 mg/dL [facility] Chloride [Moles/Vol] 103 mmol/L [facility] Creatinine [Mass/Vol] 0.49 mg/dL Low [facility] eGFR - PINF [facility] Glucose [Mass/Vol] 167 mg/dL High [facility] HCO3 (P) [Moles/Vol] 27.1 [facility] Interpretation and review of laboratory results Abnormal [facility] Phosphate [Mass/Vol] 2.8 mg/dL [facility] Potassium (BldA) [Moles/Vol] 4.1 mmol/L 3.3 - 5.1 mmol/L [facility] Sodium [Moles/Vol] 139 mmol/L 133 - 145 mmol/L [facility] Urea nitrogen [Mass/Vol] 16 mg/dL [facility] COMPLETE BLOOD COUNT WITH DI FFERENTIALon 12-22-2023 Basophils (Bld) [#/Vol] 0.02 10*3/uL Normal 0.02-0.06 [facility] Comment on above: Order Comment: Relea se to patient->Automatic Performed By: #### 1 001 ####SANDI SEGUNDOCON W ([id number])[facility] ([email or web address])[place] [address] [place] Basophils/100 WBC (Bld) 0.2 % Low 0.3-0.9 [facility] Comment on above: Order Comment: Relea se to patient->Automatic Performed By: #### 1 001 ####SANDI BACCON W ([id number])[facility] ([facility])[place] [address] [place] Eosinophils (Bld) [#/Vol] 0.17 10*3/uL Normal 0.04-0.27 [facility] Comment on above: Order Comment: Relea se to patient->Automatic Performed By: #### 1 001 ####SANDI BACCON W ([id number])[facility] ([email or web address])[place] [address] [place] Eosinophils/100 WBC (Bld) 1.7 % Normal 0.6-3.8 [facility] Comment on above: Order Comment: Relea se to patient->Automatic Performed By: #### 1 001 ####SANDI BACCON W ([id number])[facility] ([email or web address] [address] [place] Erythrocyte distribution width (RBC) [Ratio] 16.0 % High 11.9-14.8 [facility] Comment on above: Order Comment: Relea se to patient->Automatic Performed By: #### 1 001 ####SANDI BACCON W ([id number])[facility] ([email or web address])[place] [address] [place] Hematocrit (Bld) [Volume fraction] 32.5 % Low 35.5-44.6 [facility] Comment on above: Order Comment: Relea se to patient->Automatic Performed By: #### 1 001 ####SANDI BACCON W ([id number])[facility] ([facility])[place] [address] [place] Hemoglobin (Bld) [Mass/Vol] 10.2 g/dL Low 11.4-14.8 [facility] Comment on above: Order Comment: Relea se to patient->Automatic Performed By: #### 1 001 ####SANDI BLACK W ([id number])[facility] ([facility])ONE [address] Immature granulocytes/100 WBC (Bld) 0.4 % Normal 0.2-0.5 [facility] Comment on above: Order Comment: Relea se to patient->Automatic Result Comment: Linda ture Granulocyte Percent includes promyelocytes, myelocytes,and metamyelocytes. IG% > 1.0 indicates a left shift is present. With automated differentials, bands are included in the neutrophil count and not in the Immature Granulocyte Percent. Performed By: #### 1 001 ####SANDI BLACK W ([id number])[employer])ONE [address] Lymphocytes (Bld) [#/Vol] 3.14 10*3/uL High 1.51-2.99 [facility] Comment on above: Order Comment: Relea se to patient->Automatic Performed By: #### 1 001 ####SANDI BLACK W ([id number])[facility] [place] ([facility])ONE [address] Lymphocytes/100 WBC (Bld) 30.7 % Normal 21.8-42.1 [facility] Comment on above: Order Comment: Relea se to patient->Automatic Performed By: #### 1 001 ####SANDI BLACK W ([id number])[facility])ONE [address] MCH (RBC) [Entitic mass] 27.4 pg Normal 25.7-31.2 [facility] Comment on above: Order Comment: Relea se to patient->Automatic Performed By: #### 1 001 ####SANDI BACCON W ([id number])[facility])ONE [address] MCHC 31.4 % Normal 31.3-34.0 [facility] Comment on above: Order Comment: Relea se to patient->Automatic Performed By: #### 1 001 ####SANDI BLACK W ([id number])[employer])ONE [address] MCV (RBC) [Entitic vol] 87.4 fL Normal 80.7-93.7 [facility] Comment on above: Order Comment: Relea se to patient->Automatic Performed By: #### 1 001 ####SANDI BACCON W ([id number])[facility] ([facility])ONE [address] Monocytes (Bld) [#/Vol] 1.08 10*3/uL High 0.36-0.77 [facility] Comment on above: Order Comment: Relea se to patient->Automatic Performed By: #### 1 001 ####SANDI BACCON W ([id number])[facility] ([facility])ONE [address] Monocytes/100 WBC (Bld) 10.6 % High 5.6-10.2 [facility] Comment on above: Order Comment: Relea se to patient->Automatic Performed By: #### 1 001 ####SANDI BACCON W ([id number])[facility] ([facility] [address] [place] Neutrophils (Bld) [#/Vol] 5.77 10*3/uL Normal 2.43-6.42 [facility] Comment on above: Order Comment: Relea se to patient->Automatic Performed By: #### 1 001 ####SANDI BACCON W ([id number])[facility] ([facility])ONE [address] Neutrophils/100 WBC (Bld) 56.4 % Normal 46.0-68.6 [facility] Comment on above: Order Comment: Relea se to patient->Automatic Performed By: #### 1 001 ####SANDI BACCON W ([id number])[facility] ([facility] [address] [place] Nucleated RBC/100 WBC (Bld) [Ratio] 0.0 % Normal 0.0-0.0 [facility] Comment on above: Order Comment: Relea se to patient->Automatic Performed By: #### 1 001 ####SANDI BACCON W ([id number])[facility] ([facility])ONE [address] Platelet mean volume (Bld) [Entitic vol] 10.7 fL Normal 9.6-11.9 [facility] Comment on above: Order Comment: Relea se to patient->Automatic Performed By: #### 1 001 ####SANDI Mayo ([id number])[facility] ([facility])ONE [address] Platelets (Bld) [#/Vol] 152 10*3/uL Normal 150-400 [facility] Comment on above: Order Comment: Relea se to patient->Automatic Performed By: #### 1 001 ####SANDI Mayo ([id number])[facility] ([facility])[address] RBC 3.72 10E12/L Low 4.03-4.91 [facility] Comment on above: Order Comment: Relea se to patient->Automatic Performed By: #### 1 001 ####SANDI Mayo ([id number])[facility] ([facility])[address] WBC (Bld) [#/Vol] 10.2 10*3/uL High 4.9-10.0 [facility] Comment on above: Order Comment: Relea se to patient->Automatic Performed By: #### 1 001 ####SANDI Mayo ([id number])[facility] [employer])[address] Complete Blood Count with Di fferentialOrdered By: Marsha Plaza on 12-22-2023 Basophils (Bld) [#/Vol] 0.02 10*3/uL [facility] Basophils/100 WBC (Bld) 0.2 % Low 0.3 - 0.9 % [facility] Eosinophils (Bld) [#/Vol] 0.17 10*3/uL [facility] Eosinophils/100 WBC (Bld) 1.7 % 0.6 - 3.8 % [facility] Erythrocyte distribution width (RBC) [Ratio] 16 % High 11.9 - 14.8 % [facility] Hematocrit (Bld) [Volume fraction] 32.5 % Low 35.5 - 44.6 % [facility] Hemoglobin (Bld) [Mass/Vol] 10.2 g/dL Low 11.4 - 14.8 g/dL [facility] Immature granulocytes/100 WBC (Bld) 0.4 % 0.2 - 0.5 % [facility] Interpretation and review of laboratory results Abnormal [facility] Lymphocytes (Bld) [#/Vol] 3.14 10*3/uL High [facility] Lymphocytes/100 WBC (Bld) 30.7 % 21.8 - 42.1 % [facility] MCH (RBC) [Entitic mass] 27.4 pg 25. 7 - 31.2 pg [facility] MCHC (RBC) [Mass/Vol] 31.4 % 31.3 - 34.0 % [facility] MCV (RBC) [Entitic vol] 87.4 fL 80.7 - 93.7 fL [facility] Monocytes (Bld) [#/Vol] 1.08 10*3/uL High [facility] Monocytes/100 WBC (Bld) 10.6 % High 5.6 - 10.2 % [facility] Neutrophils (Bld) [#/Vol] 5.77 10*3/uL [facility] Neutrophils/100 WBC (Bld) 56.4 % 46.0 - 68.6 % [facility] Nucleated RBC/100 WBC (Bld) [Ratio] 0 % 0.0 - 0.0 % [facility] Platelet mean volume (Bld) [Entitic vol] 10.7 fL 9.6 - 11.9 fL [facility] Platelets (Bld) [#/Vol] 152 10*3/uL [facility] RBC (Bld) [#/Vol] 3.72 10*6/uL Low [facility] WBC (Bld) [#/Vol] 10.2 10*3/uL High [facility] GLUCOSE BY METERon 4 Glucose [Mass/Vol] 246 mg/dL High 70-99 [facility] Comment on above: Order Comment: Relea se to patient->Automatic Performed By: #### 2 516 ####SANDI BLACK W ([id number])[facility] ([email or web address])[place] [address] [place] Glucose [Mass/Vol] 135 mg/dL High 70- [facility] Comment on above: Order Comment: Relea se to patient->Automatic Performed By: #### 2 516 ####SANDI BACCON W ([id number])[facility] ([facility])[place] [address] [place] Glucose [Mass/Vol] 152 mg/dL High 70- [facility] Comment on above: Order Comment: Relea se to patient->Automatic Performed By: #### 2 516 ####SANDI BLACK W ([id number])[facility] ([email or web address])[place] [address] [place] Glucose [Mass/Vol] 177 mg/dL High [facility] Comment on above: Order Comment: Relea se to patient->Automatic Performed By: #### 2 516 ####SANDI BACMARIAH W ([id number])[facility] ([facility])[place] [address] [place] Glucose by meteron Glucose [Mass/Vol] 246 mg/dL High [facility] Interpretation and review of laboratory results Abnormal [facility] Glucose [Mass/Vol] 135 mg/dL High [facility] Interpretation and review of laboratory results Abnormal [facility] Glucose [Mass/Vol] 152 mg/dL High [facility] Interpretation and review of laboratory results Abnormal [facility] Glucose [Mass/Vol] 177 mg/dL High [facility] Interpretation and review of laboratory results Abnormal [facility] No Panel Informationon 12-21 Interpretation and review of laboratory results Abnormal [facility] PROCALCITONINon 12-22-2023 Procalcitonin 0.12 NG/ML High <=0.10 [facility] Comment on above: Order Comment: Relea se to patient->Automatic Result Comment: Inte rpretation: <0.5 ng/mL= Low risk of severe sepsis and/ or shock (do not exclude infection, as infections are systemic infections in early stages (<6 hrs) can be associated with low concentrations.) 0.50-2.00 ng/mL= Interpret in the clinical context of the patient, as a variety of conditions such as shaffer, trauma, surgery, and severe cardiogenic shock can cause procalcitonin elevations. >2.00 ng/mL= Elevated risk of severe sepsis and/or septic shock. Verified By: [id number] Performed By: #### 1 820 ####SANDI Mayo ([id number])[place] [facility] ([facility])[place] [place] [address] [facility] Procalcitoninon 12-22-2023 Procalcitonin IA [Mass/Vol] 0.12 High [facility] RENAL FUNCTION PANELon 12-21 Albumin [Mass/Vol] 3.3 g/dL Low 3.5-5.0 [facility] Comment on above: Order Comment: Relea se to patient->Automatic Result Comment: Veri fied By: [id number] Performed By: #### 3 831 ####SANDI Myao ([id number])[place] [employer] [facility])[place] [address] [place] Calcium [Mass/Vol] 9.2 mg/dL Normal 7.6-11.0 [facility] Comment on above: Order Comment: Relea se to patient->Automatic Result Comment: Veri fied By: [id number] Performed By: #### 3 831 ####SANDI Mayo ([id number])[facility] ([facility])[place] [address] [place] Chloride [Moles/Vol] 100 mmol/L Normal 96-108 [facility] Comment on above: Order Comment: Relea se to patient->Automatic Result Comment: Veri fied By: [id number] Performed By: #### 3 831 ####SANDI Mayo ([id number])[facility] ([facility])[place] [address] [place] CO2 [Moles/Vol] 29.4 mmol/L High 22.0-29.0 [facility] Comment on above: Order Comment: Relea se to patient->Automatic Result Comment: Veri fied By: [id number] Performed By: #### 3 831 ####SANDI Mayo ([id number])[facility] ([facility])[place] [address] [place] Creatinine [Mass/Vol] 0.64 mg/dL Normal 0.50-1.00 [facility] Comment on above: Order Comment: Relea se to patient->Automatic Result Comment: Veri fied By: [id number] Performed By: #### 3 831 ####SANDI Mayo ([id number])[facility] ([facility])[address] [place] [address] [place] GFR/1.73 sq M.predicted among non-blacks MDRD (S/P/Bld) [Vol rate/Area] mL/min/{1.73_m2} Normal >=60 [facility] Comment on above: Order Comment: Relea se to patient->Automatic Performed By: #### 3 831 ####SANDI Mayo ([id number])[facility] ([facility])[address] [address] [place] Glucose [Mass/Vol] 179 mg/dL High 70-99 [facility] Comment on above: Order Comment: Relea se to patient->Automatic Result Comment: Crit eria for Diagnosis of Diabetes: Fasting Specimen (no caloric intake for at least 8 hours): <100 mg/dL Normal 100-125 mg/dL Increased risk for Diabetes >125 mg/dL Diagnostic for Diabetes Random Glucose (any time of day without regard to last meal): > or = 200 mg/dL plus Classic Symptoms of Diabetes Verified By: [id number] Performed By: #### 3 831 ####SANDI Mayo ([id number])[facility] ([facility])[place] [address] [place] Phosphate [Mass/Vol] 3.3 mg/dL Normal 2.7-4.5 [facility] Comment on above: Order Comment: Relea se to patient->Automatic Result Comment: Veri fied By: [id number] Performed By: #### 3 831 ####SANDI BLACK W ([id number])[facility] ([employer])[place] [address] [facility] Potassium [Moles/Vol] 4.7 mmol/L Normal 3.3-5.1 [facility] Comment on above: Order Comment: Relea se to patient->Automatic Result Comment: Veri fied By: [id number] Performed By: #### 3 831 ####SANDI BACMARIAH W ([id number])[facility] ([facility])[place] [address] [facility] Sodium [Moles/Vol] 139 mmol/L Normal 133-145 [facility] Comment on above: Order Comment: Relea se to patient->Automatic Result Comment: Veri fied By: [id number] Performed By: #### 3 831 ####SANDI BACMARIAH W ([id number])[facility] ([employer])[place] [address] [facility] Urea nitrogen [Mass/Vol] 14 mg/dL Normal 4-19 [facility] Comment on above: Order Comment: Relea se to patient->Automatic Result Comment: Veri fied By: [id number] Performed By: #### 3 831 ####SANDI BACMARIAH W ([id number])[employer] ([employer])[place] [address] [facility] RESPIRATORY PANEL FILM ARRAY on 12-22-2023 RESPIRATORY PANEL FILM ARRAY Adenovirus Not Detected Coronavirus 229E Not Detected Coronavirus HKU1 Not Detected Coronavirus NL63 Not Detected Coronavirus OC43 Not Detected Severe Acute Respiratory Syndrome Coronavirus 2 Not Detected Human metapneumovirus Not Detected Human Rhinovirus/Enterovirus Not Detected Influenza A Not Detected Influenza B virus Not Detected Parainfluenza Virus 1 Not Detected Parainfluenza Virus 2 Not Detected Parainfluenza Virus 3 Not Detected Parainfluenza virus 4 Not Detected Respiratory Syncytial Virus Not Detected Bordetella parapertussis Not Detected Bordetella pertussis (ptxP) Not Detected Chlamydia pneumoniae Not Detected Mycoplasma pneumoniae Not Detected Comment The Respiratory Panel FilmArray detects DNA or RNA from the following organisms: Adenovirus, Coronavirus (including common [place] strains 229E, ?HKU1, NL63, and OC43), Severe Acute Respiratory Syndrome Coronavirus 2 (SARS-CoV-2), Human Metapneumovirus, Human Rhinovirus/Enterovirus , Influenza A (including subtypes H1, H1-2009, and H3), Influenza B, Parainfluenza Virus (including Types 1, 2, 3, and 4), Respiratory Syncytial Virus, Bordetella parapertussis (IS 1001), Bordetella pertussis (ptxP), Chlamydia pneumoniae, and Mycoplasma pneumoniae. Note: Negative results do not preclude infection and should not be used as the sole basis for treatment or other patient management decisions. Negative results must be combined with clinical observations, patient history, and epidemiological information. Method: The [employer] Respiratory Panel 2.1 (RP2.1) is a multiplexed nucleic acid test intended for the simultaneous qualitative detection and differentiation of multiple viral and bacterial respiratory organisms, including Severe Acute Respiratory Syndrome Coronavirus 2 (SARS-CoV-2) This test is FDA [place] authorized. Normal [facility] Comment on above: Order Comment: Is th is a pre-procedure screening test?->NoFirst Covid-19 Test?->NoEmployed in Healthcare setting?->YesSymptomatic as defined by CDC?->YesDate of Symptom Onset?->9/16/24Hospitalized (at time of testing, for COVID-19)?->YesICU (at time of testing, for COVID-19)?->YesResident in congregate care setting? (i.e. foster care, homeless halfway, etc.)->No?->NoRelease to patient->Automatic Performed By: #### 5 962 ####SANDI Mayo ([id number])[facility] ([facility])[place] [id number] [facility] Renal function panelon 12-21 Albumin BCG dye [Mass/Vol] 3.3 g/dL Low [facility] Calcium [Mass/Vol] 9.2 mg/dL [facility] Chloride [Moles/Vol] 100 mmol/L [facility] Creatinine [Mass/Vol] 0.64 mg/dL [facility] Glucose [Mass/Vol] 179 mg/dL High [facility] HCO3 (P) [Moles/Vol] 29.4 High [facility] Phosphate [Mass/Vol] 3.3 mg/dL [facility] Potassium (BldA) [Moles/Vol] 4.7 mmol/L 3.3 - 5.1 mmol/L [facility] Sodium [Moles/Vol] 139 mmol/L 133 - 145 mmol/L [facility] Urea nitrogen [Mass/Vol] 14 mg/dL [facility] Respiratory Panel Film Array Ordered By: Rosa Maria Patrick on 12-22-2023 Adenovirus DNA YADI+non-probe Ql (Nph) Not detected Not Detected [facility] B. parapertussis [id number] DNA YADI+non-probe Ql (Nph) Not detected Not Detected [facility] B. pertussis toxin promoter region YADI+non-probe Ql (Nph) Not detected Not Detected [facility] C. pneumoniae DNA YADI+non-probe Ql (Nph) Not detected Not Detected [facility] Comment h2fvkUSjWLMrt9suCRXz bG FuZzEwMzNcZnRuYmpcdWMx APktykJtPXpcs4JeV6IgCk AwMFxhbnNpXGRlZmxhbmcx NVAlLBB4cnDkGDZlKEwlNX PqCJseIj5xaYFptFpaGaDv DDPrx2sulkHFvgmmhFa6b3 twWBMdObW3kBGoGXnhG4ob wdBfsMItSLGxAIa6kD56YX BzuK5kpXMqFLxoqdDhDhW4 FEcpVELdZfO1FYKubEAoTT BuW7swBSPeWDftBJLeHQxb zYEfSWY8nBoev7A1iAJztU UocMwaGjXgNsNkNhAAm8Ua LZw9xYfzZ7ZuJPNjZxL1zV QgUGFyYWdyYXBoIEZvbnQ7 jA23SRsyjlF1kDMnz8Gfa6 0pb506qG1tvZJuMCG5MYAx FKEujVRuEBMgNHS3DTHkjM OqA9isWUFdAG5qmtfsJNdb VWtuJSUjyUW4TIKrpVOzK8 MnBQXnNTvgDMAipkq7AaKo Qs5oeBFgkZvnBGalz7vkq5 mrcYXbCyx1LKLnOjNpFuuf NFrhj2Yyh0jwAXTmur9eMK N9iOUpzFlyg8O7uJKfVBHj hNUfmeRmQNYbYtX9VXchGB 9tmx37FBQvHQE8xj8jzMGp sJhhmtFjiBVcCXqcD8TsHA Wow915IOCzA4OqUWRbc7E8 avSsOlKeEUGhhEK5nuF9EU ZiIYx0wVDremW5yjXzpPWp E6mwgB3dDXDuOZ9bmkzqn1 jtTRojJBhlZOVnzSQ2vnA0 CBUbrZJaH9ZpcS0bGATaHG azLFBzjza4TnOgPk6kwJLr eTcyMFxzYmtwYWdlXHBnbm NvbnRccGduZGVjXHBsYWlu XHBsYWluXGYwXGZzMjRccW gxpYzwmB1hXhFlIwRzCmas RV6yKMZyK1astTLfMPEpOO IeX6pxYaMpyN4mcYmaYRnu czIyIFRoZSBSZXNwaXJhdG 9ncTXQGW7bkJEGrYwfDDQx DPdnVYF0XVA2zdSETwObv9 QkQw5HUQNty94rwZuwNLFk qWxcl1ijEvPhfozueaxecZ P4ZHDaKM6kognroXUuNRSn zv8wCTMdjtFqOIsqdoFjzL LdddmyM66whT0nREJdLy5y y3HeIKcppzKeCahNIOTloT ruhP1cLrRcNeJsZvbzYZ6y GFTpT5gdjIAeNWHtZPStL0 koQoNylP9wtBdeJBudayEp XHUxNjAgXCdhMFxwbGFpbl xmMVxmczIyXGxhbmcxMDMz SFcvR6gmPlChWEJsrHmqIX pbe2IeADNgZUHqNdPiSSlQ QCueYkf3MrxwBR5rMH7PDD NlMGJZQXYavkUhZYV9dFJy RpLsjKzoPLBsdcliC2qbLG LmsJNxZ23vj91mfnbkgVAi QdSfP5UAEk3Oz8UaNavdRC j6jPOwIY1yrFTvuaS8fR26 zRE2ufeoMMVvUC0yBgmeit 17aRH6ka2KmyJvnx98tQQ2 qdqdQM3qpERahrbpUMYrPW xsX3s4QKpkCoYldCG5gVEj cyBIMSwgSDEtMjAwOSwgYW 8kNBfiUDsjSP4yrDVhacjb IEIsIFBhcmFpbmZsdWVuem YaWyrqbOVoKHamD6n9NNcn ZyBUeXBlcyAxLCAyLCAzLC KcvgHzJNjzALUen5WvwnD4 l9R4WPQ3qmX6qFuyaIYKoT F0pojmWa0rESW1MSngCAMk OSBkfBAkiVPgs4ulNWgOLa HtJXGeCEimIl9eJOZ7EAao EQXkDHJ4iYAkpGFiCKG1lO DwEGRHvIciwYcnmFYrzM0k bU9vbqywHKfbAS0lIF59Y9 1qiXPwtOXpyQ6hdM5dikof LV7zJKTqynncIRQrUb25RH ogTmVnYXRpdmUgcmVzdWx0 leYjgrBbt2BvzXTfF2g8KJ AuuI2kSII3hK3lJLEpPQAo nL54bJRjhf06MGRpYBKfBA QgYXMgdGhlIHNvbGUgYmFz eTEfUl2wTGMzKLO3iSIzwY IepdWbgFntleTlOLDhFC53 XA6fbxLiEI5wogGpZQGfpF Uax17lMiKOFFjgjNc2ZJXb AJI5zUQaPV95j0KnJmPtW9 0tVzjoONYdc4g3aFLivUwx aWNhbCBvYnNlcnZhdGlvbn KoNKSqtDtqrqZidZncwM0m xEizHW0kMUTxoLRxjXaeoV 2cqFAaiHBptcPgrq9hrSxy fo2uSIYdzrsrBJBwBWI4kI 9kOiBUaGUgQmlvRmlyZSBS KPIhcPUtvZ8xtLXEJP3kjO ZpYxWcODQGTe4wQFDlwsLj HM69wYOobLbnySRaDF58V0 xynOMcGTRnVDW3APK9QKeh mHEpALNzHFOjozJ8gFGun1 wuwRm6FF6th1PyIJH0KSli zME8xCUgBOIvnEMljLntth JmpgWwBHviVdPfEQ94dWP8 xQ3tXH7iTC57tCPonWbrYP HzoeIaZYBaBIMlJFT8SYRa YWwgcmVzcGlyYXRvcnkgb3 JeML0xw82zATMxbxBeiCUv wxmxU1B6NTItZKCufGNwPQ Hgl8GeggS5y1X4JVT5glAh y46fFHQuax5bCSVzyvByQQ KvFIUTVfMmK75WIALnEQgf YXJccGFyIFRoaXMgdGVzdC VmqkLVBZZuIXSkWh31eoDb mMUos6NhqoWtZiwoZUNavL FyfX0= [facility] FLUAV RNA YADI+non-probe Ql (Nph) Not detected Not detected [facility] FLUBV RNA YADI+non-probe Ql (Nph) Not detected Not Detected [facility] HCoV 229E RNA YADI+non-probe Ql (Nph) Not detected Not Detected [facility] HCoV HKU1 RNA YADI+non-probe Ql (Nph) Not detected Not Detected [facility] HCoV NL63 RNA YADI+non-probe Ql (Nph) Not detected Not Detected [facility] HCoV OC43 RNA YADI+non-probe Ql (Nph) Not detected Not Detected [facility] hMPV RNA YADI+non-probe Ql (Nph) Not detected Not Detected [facility] M. pneumoniae DNA YADI+non-probe Ql (Nph) Not detected Not Detected [facility] Parainfluenza virus 1 RNA YADI+non-probe Ql (Nph) Not detected Not Detected [facility] Parainfluenza virus 2 RNA YADI+non-probe Ql (Nph) Not detected Not Detected [facility] Parainfluenza virus 3 RNA YADI+non-probe Ql (Nph) Not detected Not Detected [facility] Parainfluenza virus 4 RNA YADI+non-probe Ql (Nph) Not detected Not Detected [facility] Rhinovirus+Enterovirus RNA YADI+non-probe Ql (Nph) Not detected Not Detected [facility] RSV RNA YADI+non-probe Ql (Nph) Not detected Not Detected [facility] SARS-CoV-2 (COVID-19) RNA YADI+non-probe Ql (Nph) Not detected Not Detected [facility] Strep cultureOrdered By: Erma Delgado on 12-22-2023 Streptococcus sp identified Org specific cx Nom (Unsp spec) No Beta hemolytic Streptococci isolated [facility] URINALYSIS, COMPLETEon 12-21 Bilirubin Ql (U) Negative Normal Negative [facility] Comment on above: Order Comment: Relea se to patient->Automatic Performed By: #### 2 100 ####SANDI Mayo ([id number])[place] [address] [facility] Character Clear Normal [facility] Comment on above: Order Comment: Relea se to patient->Automatic Performed By: #### 2 100 ####SANDI Mayo ([id number])[employer])[place] [address] [place] Color (U) Light Yellow Normal [facility] Comment on above: Order Comment: Relea se to patient->Automatic Performed By: #### 2 100 ####SANDI BACCON W ([id number])[facility] ([facility] [place] [address] [place] Glucose Ql (U) Trace Normal Normal [facility] Comment on above: Order Comment: Relea se to patient->Automatic Performed By: #### 2 100 ####SANDI BACCON W ([id number])[facility] ([facility]ER)[facility] [place] [address] [place] Hyaline casts LM Ql (Urine sed) <1.0 High <=0.0 [facility] Comment on above: Order Comment: Relea se to patient->Automatic Performed By: #### 2 100 ####SANDI BACCON W ([id number])[facility] ([facility] [place] [address] [place] Ketones Ql (U) Negative Normal Negative [facility] Comment on above: Order Comment: Relea se to patient->Automatic Performed By: #### 2 100 ####SANDI BACCON W ([id number])[facility] ([email or web address] [place] [address] [place] Leukocyte esterase Test strip Ql (U) 75 Jacques/uL Abnormal Negative [facility] Comment on above: Order Comment: Relea se to patient->Automatic Performed By: #### 2 100 ####SANDI BACCON W ([id number])[facility] ([email or web address])[facility] [place] [address] [place] Mucous Small Abnormal Negative [facility] Comment on above: Order Comment: Relea se to patient->Automatic Performed By: #### 2 100 ####SANDI BACCON W ([id number])[facility] ([email or web address])[facility] [place] [address] [place] Nitrite Ql (U) Negative Normal Negative [facility] Comment on above: Order Comment: Relea se to patient->Automatic Performed By: #### 2 100 ####SANDI BACCON W ([id number])[facility] (BEAKER)[facility] [place] [address] [place] pH (U) 5.5 [pH] Normal 5.0-8.0 [facility] Comment on above: Order Comment: Relea se to patient->Automatic Performed By: #### 2 100 ####SANDI BACMARIAH W ([id number])[facility] ([facility])[place] [address] [place] Protein Ql (U) Negative Normal Neg.-Trace [facility] Comment on above: Order Comment: Relea se to patient->Automatic Performed By: #### 2 100 ####SANDI BACMARIAH W ([id number])[facility] ([facility])[place] [address] [place] RBC (U) [#/Vol] 0.0 /uL Normal <=20.0 [facility] Comment on above: Order Comment: Relea se to patient->Automatic Performed By: #### 2 100 ####SANDI BACCON W ([id number])[facility] ([facility] [place] [address] [place] Renal Epithelial Cells 0.0 /uL Normal <=20.0 [facility] Comment on above: Order Comment: Relea se to patient->Automatic Performed By: #### 2 100 ####SANDI BACCON W ([id number])[facility] ([email or web address] [place] [address] [place] Specific gravity (U) [Rel density] 1.010 Normal Reference Range: 1.005-1.030 [facility] Comment on above: Order Comment: Relea se to patient->Automatic Performed By: #### 2 100 ####SANDI BACCON W ([id number])[facility] ([employer])[place] [address] [place] Squamous Epithelial Cells 3.0 /uL Normal <=20.0 [facility] Comment on above: Order Comment: Relea se to patient->Automatic Performed By: #### 2 100 ####SANDI BACCON W ([id number])[facility] ([employer])[place] [address] [place] Transitional Epithelial Cells 1.0 /uL Normal <=20.0 [facility] Comment on above: Order Comment: Relea se to patient->Automatic Performed By: #### 2 100 ####SANDI Mayo ([id number])[facility] ([facility])ONE [address] Urobilinogen Normal Normal Normal [facility] Comment on above: Order Comment: Relea se to patient->Automatic Performed By: #### 2 100 ####SANDI Mayo ([id number])[facility] ([facility])[address] Volume 12 mL Normal [facility] Comment on above: Order Comment: Relea se to patient->Automatic Performed By: #### 2 100 ####SANDI Mayo ([id number])[facility] ([facility])[address] WBC (U) [#/Vol] 50.0 /uL High <=20.0 [facility] Comment on above: Order Comment: Relea se to patient->Automatic Performed By: #### 2 100 ####SANDI Mayo ([id number])[facility] ([facility])[address] Urinalysis, Complete (Chemis try & Micro)Ordered By: Deepak Navarrete on 12-22-2023 Bilirubin Ql (U) Negative Negative [facility] Character Clear [facility] Color (U) Light Yellow [facility] Epithelial cells.non-squamous Auto Ql (U) 1 /uL [facility] /uL [facility] Epithelial cells.renal Computer assisted Ql (U) 0 /uL NINF - 20.0 /uL [facility] Epithelial cells.squamous Auto Ql (U) 3 /uL NINF - 20.0 /uL [facility] Glucose Auto test strip Ql (U) Trace Normal [facility] Hemoglobin Auto test strip Ql (U) Negative Negative [facility] Hyaline casts Auto Ql (U) /uL High NINF - 0.0 /uL [facility] Interpretation and review of laboratory results Abnormal [facility] Ketones (U) [Mass/Vol] Negative Negative [facility] Leukocyte esterase Auto test strip Ql (U) 75 Abnormal Negative Jacques/uL [facility] Mucus Auto Ql (U) Small Abnormal Negative [facility] Nitrite Ql (U) Negative Negative [facility] pH (U) 5.5 [pH] 5.0 - 8.0 [facility] Protein (U) [Mass/Vol] Negative Neg.-Trace [facility] RBC Ql (U) 0 /uL NINF - 20.0 /uL [facility] Specific gravity Refractometry automated (U) [Rel density] 1.01 Reference Range: 1.005-1.030 [facility] Specimen volume (U) 12 mL [facility] Urobilinogen (U) [Mass/Vol] Normal Normal mg/dL [facility] WBC Auto Ql (U) 50 /uL High NINF - 20.0 /uL [facility] GLUCOSE BY METERon 4 Glucose [Mass/Vol] 279 mg/dL High 70-99 [facility] Comment on above: Order Comment: Relea se to patient->Automatic Performed By: #### 2 516 ####SANDI Mayo ([id number])[place] [email or web address])[place] [id number] [facility] Glucose [Mass/Vol] 211 mg/dL High 70-[address] [place] [address] Comment on above: Order Comment: Relea se to patient->Automatic Performed By: #### 2 516 ####SANDI Mayo ([id number])[place] [facility] ([facility])[place] [address] [place] Glucose [Mass/Vol] 205 mg/dL High 70-99 [facility] Comment on above: Order Comment: Relea se to patient->Automatic Performed By: #### 2 516 ####SANDI Mayo ([id number])[place] [email or web address] [address] [place] Glucose [Mass/Vol] 179 mg/dL High 70-99 [facility] Comment on above: Order Comment: Relea se to patient->Automatic Performed By: #### 2 516 ####SANDI BLACK W ([id number])[facility] ([facility] [place] [address] [place] Glucose by meteron 4 Glucose [Mass/Vol] 279 mg/dL High [facility] Interpretation and review of laboratory results Abnormal [facility] Glucose [Mass/Vol] 211 mg/dL High [facility] Interpretation and review of laboratory results Abnormal [facility] Glucose [Mass/Vol] 205 mg/dL High [facility] Interpretation and review of laboratory results Abnormal [facility] Glucose [Mass/Vol] 179 mg/dL High [facility] Interpretation and review of laboratory results Abnormal [facility] GLUCOSE BY METERon 4 Glucose [Mass/Vol] 189 mg/dL High 70-99 [facility] Comment on above: Order Comment: Relea se to patient->Automatic Performed By: #### 2 516 ####SANDI BLACK W ([id number])[facility] ([email or web address])[facility] [place] [address] [place] Glucose [Mass/Vol] 180 mg/dL High 70-99 [facility] Comment on above: Order Comment: Relea se to patient->Automatic Performed By: #### 2 516 ####SANDI BACCON W ([id number])[facility] ([facility] [place] [address] [place] Glucose [Mass/Vol] 159 mg/dL High 70-99 [facility] Comment on above: Order Comment: Relea se to patient->Automatic Performed By: #### 2 516 ####SANDI BACCON W ([id number])[facility] ([email or web address])[facility] [place] [address] [place] Glucose [Mass/Vol] 186 mg/dL High 70-99 [facility] Comment on above: Order Comment: Relea se to patient->Automatic Performed By: #### 2 516 ####SANDI BACCON W ([id number])[facility] ([employer])ONE [address] Glucose by [employer]eron Glucose [Mass/Vol] 189 mg/dL High [facility] Interpretation and review of laboratory results Abnormal [facility] Glucose [Mass/Vol] 180 mg/dL High [facility] Interpretation and review of laboratory results Abnormal [facility] Glucose [Mass/Vol] 159 mg/dL High [facility] Interpretation and review of laboratory results Abnormal [facility] Glucose [Mass/Vol] 186 mg/dL High [facility] Interpretation and review of laboratory results Abnormal [facility] LIPID PANELon 12-20-2023 Cholesterol [Mass/Vol] 147 mg/dL Normal <=199 [facility] Comment on above: Order Comment: Relea se to patient->Automatic Result Comment: Acce ptable (mg/dL): <200 Borderline-High (mg/dL): 200-239 High (mg/dL): > or = 240 Recommendations of the NCEP Adult Treatment Panel for the risk cut-off thresholds for the [place] Population. Verified By: [id number] Performed By: #### 2 070 ####SANDI Mayo ([id number])[facility])[address] Cholesterol in LDL [Mass/Vol] 39 mg/dL Normal <=129 [facility] Comment on above: Order Comment: Relea se to patient->Automatic Result Comment: Veri fied By: [id number] Performed By: #### 2 070 ####SANDI Mayo ([id number])[place] [facility])[address] HDL Chol 35 MG/DL Normal [facility] Comment on above: Order Comment: Relea se to patient->Automatic Result Comment: Low (mg/dL): <50 Borderline-Low (mg/dL): 50-60 Acceptable (mg/dL): >60 Verified By: [id number] Performed By: #### 2 070 ####SANDI Mayo ([id number])[place] [facility])[address] Non-HDL Cholesterol 112 MG/DL Normal <=129 [facility] Comment on above: Order Comment: Relea se to patient->Automatic Result Comment: Tata fied By: [id number] Performed By: #### 2 070 ####SANDI Mayo ([id number])[facility] ([facility])[address] Triglyceride [Mass/Vol] 366 mg/dL High <=149 A [facility] Comment on above: Order Comment: Relea se to patient->Automatic Result Comment: A re peating fasting triglyceride should be measured in 2-4 weeks if a non-fasting level is >200 mg/dL. Acceptable (mg/dL): <150 Borderline-High (mg/dL): 150-199 High (mg/dL): > or = 200 Verified By: [id number] Performed By: #### 2 070 ####SANDI Mayo ([id number])[facility] ([facility])[address] Lipid panelon 12-20-2023 Cholesterol [Mass/Vol] 147 mg/dL [facility] Cholesterol in HDL [Mass/Vol] 35 mg/dL MG/DL [facility] Cholesterol in LDL [Mass/Vol] 39 mg/dL [facility] Cholesterol non HDL [Mass/Vol] 112 mg/dL [facility] Interpretation and review of laboratory results Abnormal [facility] Triglyceride [Mass/Vol] 366 mg/dL High NIN A [facility] STREP CULTUREon 12-20-2023 STREP CULTURE Strep Culture No Beta hemolytic Streptococci isolated Normal [facility] Comment on above: Order Comment: Relea se to patient->Automatic Performed By: #### 4 470 ####SANDI Mayo ([id number])[facility] ([facility])[address] TYPE AND SCREENon 12-20-2023 ABO TYPE A Normal [facility] Comment on above: Order Comment: Histo ry of transplant:->NoHistory of immunodeficiency:->NoCurrently on immunosuppressive therapy:->NoSickle Cell Disease->NoPrevious transfusion of blood products:->NoIVIG in the last three months:->NoWinRho, or RhoGam in the last three months:->NoPregnancy, current or within the last three months:->NoRelease to patient->Automatic Performed By: #### 6 573 ####WANDY Moon ([id number])[facility] ([facility])[address] Direct Antiglobulin Test Negative Normal [facility] Comment on above: Order Comment: Histo ry of transplant:->NoHistory of immunodeficiency:->NoCurrently on immunosuppressive therapy:->NoSickle Cell Disease->NoPrevious transfusion of blood products:->NoIVIG in the last three months:->NoWinRho, or RhoGam in the last three months:->NoPregnancy, current or within the last three months:->NoRelease to patient->Automatic Performed By: #### 6 573 ####WANDY Moon ([id number])[facility] ([address] Rh Type Positive Normal [facility] Comment on above: Order Comment: Histo ry of transplant:->NoHistory of immunodeficiency:->NoCurrently on immunosuppressive therapy:->NoSickle Cell Disease->NoPrevious transfusion of blood products:->NoIVIG in the last three months:->NoWinRho, or RhoGam in the last three months:->NoPregnancy, current or within the last three months:->NoRelease to patient->Automatic Performed By: #### 6 573 ####WANDY Moon ([id number])[facility] ([facility])[address] Screening Cells Negative [facility] Comment on above: Order Comment: Histo ry of transplant:->NoHistory of immunodeficiency:->NoCurrently on immunosuppressive therapy:->NoSickle Cell Disease->NoPrevious transfusion of blood products:->NoIVIG in the last three months:->NoWinRho, or RhoGam in the last three months:->NoPregnancy, current or within the last three months:->NoRelease to patient->Automatic Performed By: #### 6 573 ####WANDY Moon ([id number])[facility] ([facility])[place] [address] [place] Type & Screenon 12-20-2023 ABO group Nom (Bld) A [facility] Blood group antibody screen Ql Negative [facility] Direct antiglobulin test.poly specific reagent Ql (RBC) Negative [facility] Rh Nom (Bld) Positive [facility] EKG 12 channel panelon 12-18 PDF RESULT [facility] EKG 12 channel panelOrdered By: Ranjit Montana on 12-19-2023 [facility] Work Phone: Echo Complete w/o CHDon 12-03 PDF RESULT [facility] Radiology Study observation (narrative) [facility] GLUCOSE BY METERon Glucose [Mass/Vol] 204 mg/dL High 70-99 [facility] Comment on above: Order Comment: Relea se to patient->Automatic Performed By: #### 2 516 ####SANDI Mayo ([id number])[facility] ([place] [address] [place] Glucose [Mass/Vol] 149 mg/dL High 70-99 [facility] Comment on above: Order Comment: Relea se to patient->Automatic Performed By: #### 2 516 ####SANDI Mayo ([id number])[facility] ([place] [address] [place] Glucose [Mass/Vol] 201 mg/dL High 70-99 [facility] Comment on above: Order Comment: Relea se to patient->Automatic Performed By: #### 2 516 ####SANDI Mayo ([id number])[employer] ([facility])[place] [address] [place] Glucose [Mass/Vol] 179 mg/dL High 70-99 [facility] Comment on above: Order Comment: Relea se to patient->Automatic Performed By: #### 2 516 ####SANDI Mayo ([id number])[place] [facility] ([facility])[address] Glucose by meteron Glucose [Mass/Vol] 204 mg/dL High [facility] Interpretation and review of laboratory results Abnormal [facility] Glucose [Mass/Vol] 149 mg/dL High [facility] Interpretation and review of laboratory results Abnormal [facility] Glucose [Mass/Vol] 201 mg/dL High [facility] Interpretation and review of laboratory results Abnormal [facility] Glucose [Mass/Vol] 179 mg/dL High [facility] Interpretation and review of laboratory results Abnormal [facility] COMPREHENSIVE METABOLIC PANE Huang 12-18-2023 Albumin [Mass/Vol] 3.6 g/dL Normal 3.5-5.0 [facility] Comment on above: Order Comment: Relea se to patient->Automatic Performed By: #### 3 834 ####SANDI Mayo ([id number])[place] [facility])[address] [place] [id number] [place] ALP [Catalytic activity/Vol] 77 U/L Normal 35-104 [facility] Comment on above: Order Comment: Relea se to patient->Automatic Performed By: #### 3 834 ####SANDI Mayo ([id number])[place] [facility])[place] [address] [place] ALT [Catalytic activity/Vol] 35 U/L High <=34 [facility] Comment on above: Order Comment: Relea se to patient->Automatic Performed By: #### 3 834 ####SANDI Mayo ([id number])[place] [facility] ([facility])[place] [address] [place] AST [Catalytic activity/Vol] 21 U/L Normal <=31 [facility] Comment on above: Order Comment: Relea se to patient->Automatic Performed By: #### 3 834 ####SANDI Mayo ([id number])[facility] ([facility])[place] [address] [place] BILI,TOTAL 0.2 MG/DL Normal <=1.0 [facility] Comment on above: Order Comment: Relea se to patient->Automatic Performed By: #### 3 834 ####SANDI Mayo ([id number])[facility] ([facility])[place] [address] [place] Calcium [Mass/Vol] 9.3 mg/dL Normal 7.6-11.0 [facility] Comment on above: Order Comment: Relea se to patient->Automatic Performed By: #### 3 834 ####SANDI Mayo ([id number])[facility] ([facility])[place] [address] [place] Chloride [Moles/Vol] 103 mmol/L Normal 96-108 [facility] Comment on above: Order Comment: Relea se to patient->Automatic Performed By: #### 3 834 ####SANDI BLACK W ([id number])[facility] ([facility])[place] [address] [place] CO2 [Moles/Vol] 26.2 mmol/L Normal 22.0-29.0 [facility] Comment on above: Order Comment: Relea se to patient->Automatic Performed By: #### 3 834 ####SANDI Mayo ([id number])[facility] ([facility])[place] [address] [place] Creatinine [Mass/Vol] 0.60 mg/dL Normal 0.50-1.00 [facility] Comment on above: Order Comment: Relea se to patient->Automatic Performed By: #### 3 834 ####SANDI BACCON W ([id number])[facility] ([facility])[place] [address] [place] GFR/1.73 sq M.predicted among non-blacks MDRD (S/P/Bld) [Vol rate/Area] mL/min/{1.73_m2} Normal >=60 [facility] Comment on above: Order Comment: Relea se to patient->Automatic Performed By: #### 3 834 ####SANDI BLACK W ([id number])[facility] ([facility] [place] [address] [place] Glucose [Mass/Vol] 198 mg/dL High 70-99 [facility] Comment on above: Order Comment: Relea se to patient->Automatic Result Comment: Crit abel for Diagnosis of Diabetes: Fasting Specimen (no caloric intake for at least 8 hours): <100 mg/dL Normal 100-125 mg/dL Increased risk for Diabetes >125 mg/dL Diagnostic for Diabetes Random Glucose (any time of day without regard to last meal): > or = 200 mg/dL plus Classic Symptoms of Diabetes Performed By: #### 3 834 ####SANDI BLACK W ([id number])[facility] ([facility])[place] [address] [place] Potassium [Moles/Vol] 3.7 mmol/L Normal 3.3-5.1 [facility] Comment on above: Order Comment: Relea se to patient->Automatic Performed By: #### 3 834 ####SANDI BLACK W ([id number])[facility] ([facility] [place] [address] [place] Protein [Mass/Vol] 6.1 g/dL Normal 5.9-8.4 [facility] Comment on above: Order Comment: Relea se to patient->Automatic Performed By: #### 3 834 ####SANDI BLACK W ([id number])[facility] ([facility])[address] [facility] [place] [address] [place] Sodium [Moles/Vol] 140 mmol/L Normal 133-145 [facility] Comment on above: Order Comment: Relea se to patient->Automatic Performed By: #### 3 834 ####SANDI BACMARIAH W ([id number])[facility] ([facility])[address] [facility] [place] [address] [place] Urea nitrogen [Mass/Vol] 16 mg/dL Normal 4-19 [facility] Comment on above: Order Comment: Relea se to patient->Automatic Performed By: #### 3 834 ####SANDI BACCON W ([id number])[facility])[address] Comprehensive metabolic pane huang 12-18-2023 Albumin BCG dye [Mass/Vol] 3.6 g/dL [facility] ALP [Catalytic activity/Vol] 77 U/L 35 - 104 U/L [facility] ALT With P-5'-P [Catalytic activity/Vol] 35 U/L High NINF - 34 U/L [facility] AST With P-5'-P [Catalytic activity/Vol] 21 U/L NINF - 31 U/L [facility] Bilirubin [Mass/Vol] 0.2 mg/dL [facility] Calcium [Mass/Vol] 9.3 mg/dL [facility] Chloride [Moles/Vol] 103 mmol/L [facility] Creatinine [Mass/Vol] 0.6 mg/dL [facility] eGFR - PINF [facility] Glucose [Mass/Vol] 198 mg/dL High [facility] HCO3 (P) [Moles/Vol] 26.2 [facility] Interpretation and review of laboratory results Abnormal [facility] Potassium (BldA) [Moles/Vol] 3.7 mmol/L 3.3 - 5.1 mmol/L [facility] Protein [Mass/Vol] 6.1 g/dL [facility] Sodium [Moles/Vol] 140 mmol/L 133 - 145 mmol/L [facility] Urea nitrogen [Mass/Vol] 16 mg/dL [facility] GLUCOSE BY METERon Glucose [Mass/Vol] 195 mg/dL High 70-99 [facility] Comment on above: Order Comment: Relea se to patient->Automatic Performed By: #### 2 516 ####SANDI Mayo ([id number])[facility] ([place] [address] [place] Glucose [Mass/Vol] 179 mg/dL High 70-99 [facility] Comment on above: Order Comment: Relea se to patient->Automatic Performed By: #### 2 516 ####SANDI BLACK W ([id number])[facility] ([facility])[address] [facility] [place] [address] [place] Glucose [Mass/Vol] 198 mg/dL High 70-99 [facility] Comment on above: Order Comment: Relea se to patient->Automatic Performed By: #### 2 516 ####SANDI SEGUNDOCON W ([id number])[facility] ([facility])[address] [facility] [place] [address] [place] Glucose [Mass/Vol] 199 mg/dL High 70-99 [facility] Comment on above: Order Comment: Relea se to patient->Automatic Performed By: #### 2 516 ####SANDI BLACK W ([id number])[facility] ([facility] [place] [address] [facility] Glucose by meteron Glucose [Mass/Vol] 195 mg/dL High [facility] Interpretation and review of laboratory results Abnormal [facility] Glucose [Mass/Vol] 179 mg/dL High [facility] Interpretation and review of laboratory results Abnormal [facility] Glucose [Mass/Vol] 198 mg/dL High [facility] Interpretation and review of laboratory results Abnormal [facility] Glucose [Mass/Vol] 199 mg/dL High [facility] Interpretation and review of laboratory results Abnormal [facility] Urinalysis, Complete (Chemis try & Micro)Ordered By: Isabell Mayfield on 12-18-2023 Bilirubin Ql (U) Negative Negative [facility] Character Clear [facility] Color (U) Light Yellow [facility] Epithelial cells.non-squamous Auto Ql (U) 0 /uL [facility] - [facility].0 /uL [facility] Epithelial cells.renal Computer assisted Ql (U) 0 /uL NINF - 20.0 /uL [facility] Epithelial cells.squamous Auto Ql (U) 3 /uL NINF - 20.0 /uL [facility] Glucose Auto test strip Ql (U) 4+ Abnormal Normal [facility] Hemoglobin Auto test strip Ql (U) Negative Negative [facility] Interpretation and review of laboratory results Abnormal [facility] Ketones (U) [Mass/Vol] Negative Negative [facility] Leukocyte esterase Auto test strip Ql (U) 25 Abnormal Negative Jacques/uL [facility] Nitrite Ql (U) Negative Negative [facility] pH (U) 6.5 [pH] 5.0 - 8.0 [facility] Protein (U) [Mass/Vol] Negative Neg.-Trace [facility] RBC Ql (U) 0 /uL NINF - 20.0 /uL [facility] Specific gravity Refractometry automated (U) [Rel density] 1.028 Reference Range: 1.005-1.030 [facility] Specimen volume (U) 12 mL [facility] Urobilinogen (U) [Mass/Vol] Normal Normal mg/dL [facility] WBC Auto Ql (U) 59 /uL High NINF - 20.0 /uL [facility] COMPLETE BLOOD COUNT WITH DI FFERENTIALon 12-17-2023 Basophils (Bld) [#/Vol] 0.02 10*3/uL Normal 0.02-0.06 [facility] Comment on above: Order Comment: Relea se to patient->Automatic Performed By: #### 1 001 ####SANDI [employer] ([id number])[employer])[address] Basophils/100 WBC (Bld) 0.2 % Low 0.3-0.9 A [facility] Comment on above: Order Comment: Relea se to patient->Automatic Performed By: #### 1 001 ####SANDI [employer] W ([id number])[facility])ONE [address] Eosinophils (Bld) [#/Vol] 0.19 10*3/uL Normal 0.04-0.27 [facility] Comment on above: Order Comment: Relea se to patient->Automatic Performed By: #### 1 001 ####SANDI [employer] W ([id number])[employer])[address] [place] [id number] [facility] Eosinophils/100 WBC (Bld) 2.3 % Normal 0.6-3.8 [facility] Comment on above: Order Comment: Relea se to patient->Automatic Performed By: #### 1 001 ####SANDI Mayo ([id number])[facility] ([facility])[place] [address] [facility] Erythrocyte distribution width (RBC) [Ratio] 16.1 % High 11.9-14.8 [facility] Comment on above: Order Comment: Relea se to patient->Automatic Performed By: #### 1 001 ####SANDI BLACK W ([id number])[facility] ([facility])[address] Hematocrit (Bld) [Volume fraction] 44.9 % High 35.5-44.6 [facility] Comment on above: Order Comment: Relea se to patient->Automatic Performed By: #### 1 001 ####SANDI BLACK W ([id number])[facility] ([facility])[address] Hemoglobin (Bld) [Mass/Vol] 14.4 g/dL Normal 11.4-14.8 [facility] Comment on above: Order Comment: Relea se to patient->Automatic Performed By: #### 1 001 ####SANDI BLACK W ([id number])[facility] ([facility])[address] [place] [id number] [facility] Immature granulocytes/100 WBC (Bld) 0.2 % Normal 0.2-0.5 [facility] Comment on above: Order Comment: Relea se to patient->Automatic Result Comment: Linda ture Granulocyte Percent includes promyelocytes, myelocytes,and metamyelocytes. IG% > 1.0 indicates a left shift is present. With automated differentials, bands are included in the neutrophil count and not in the Immature Granulocyte Percent. Performed By: #### 1 001 ####SANDI BLACK W ([id number])[facility] ([facility])[place] [address] [facility] Lymphocytes (Bld) [#/Vol] 3.81 10*3/uL High 1.51-2.99 [facility] Comment on above: Order Comment: Relea se to patient->Automatic Performed By: #### 1 001 ####SANDI Mayo ([id number])[facility] ([facility])[address] Lymphocytes/100 WBC (Bld) 45.9 % High 21.8-42.1 [facility] Comment on above: Order Comment: Relea se to patient->Automatic Performed By: #### 1 001 ####SANDI BLACK W ([id number])[facility] ([facility])[address] MCH (RBC) [Entitic mass] 27.4 pg Normal 25.7-31.2 [facility] Comment on above: Order Comment: Relea se to patient->Automatic Performed By: #### 1 001 ####SANDI BLACK W ([id number])[facility] ([facility])[address] MCHC 32.1 % Normal 31.3-34.0 [facility] Comment on above: Order Comment: Relea se to patient->Automatic Performed By: #### 1 001 ####SANDI BLACK W ([id number])[facility] ([facility])[address] MCV (RBC) [Entitic vol] 85.5 fL Normal 80.7-93.7 [facility] Comment on above: Order Comment: Relea se to patient->Automatic Performed By: #### 1 001 ####SANDI BLACK W ([id number])[facility] ([place] [address] [place] Monocytes (Bld) [#/Vol] 0.57 10*3/uL Normal 0.36-0.77 [facility] Comment on above: Order Comment: Relea se to patient->Automatic Performed By: #### 1 001 ####SANDI BLACK W ([id number])[facility] ([place] [address] [place] Monocytes/100 WBC (Bld) 6.9 % Normal 5.6-10.2 A [facility] Comment on above: Order Comment: Relea se to patient->Automatic Performed By: #### 1 001 ####SANDI Mayo ([id number])[facility] ([facility])[address] [place], [place] [id number] [place] [address] MPV Normal [facility] Comment on above: Order Comment: Relea se to patient->Automatic Result Comment: Resu lt Not Available Performed By: #### 1 001 ####SANDI Mayo ([id number])[facility] ([facility])[address] Neutrophils (Bld) [#/Vol] 3.69 10*3/uL Normal 2.43-6.42 [facility] Comment on above: Order Comment: Relea se to patient->Automatic Performed By: #### 1 001 ####SANDI Mayo ([id number])[facility] ([facility])[address] Neutrophils/100 WBC (Bld) 44.5 % Low 46.0-68.6 [facility] Comment on above: Order Comment: Relea se to patient->Automatic Performed By: #### 1 001 ####SANDI Mayo ([id number])[facility] ([facility])[address] Nucleated RBC/100 WBC (Bld) [Ratio] 0.2 % High 0.0-0.0 [facility] Comment on above: Order Comment: Relea se to patient->Automatic Performed By: #### 1 001 ####SANDI Mayo ([id number])[facility] ([facility])[address] Platelets (Bld) [#/Vol] 175 10*3/uL Normal 150-400 [facility] Comment on above: Order Comment: Relea se to patient->Automatic Performed By: #### 1 001 ####SANDI BLACK W ([id number])[facility] ([facility])[address] [place] [place] [id number] [place] [place] [address] RBC 5.25 10E12/L High 4.03-4.91 [facility] Comment on above: Order Comment: Relea se to patient->Automatic Performed By: #### 1 001 ####SANDI Mayo ([id number])[place] ([facility])[address] WBC (Bld) [#/Vol] 8.3 10*3/uL Normal 4.9-10.0 [facility] Comment on above: Order Comment: Relea se to patient->Automatic Performed By: #### 1 001 ####SANDI Mayo ([id number])[facility] ([facility])[address] Complete Blood Count with Di fferentialOrdered By: Samira Painter on 12-17-2023 Basophils (Bld) [#/Vol] 0.02 10*3/uL [facility] Basophils/100 WBC (Bld) 0.2 % Low 0.3 - 0.9 % [facility] Eosinophils (Bld) [#/Vol] 0.19 10*3/uL [facility] Eosinophils/100 WBC (Bld) 2.3 % 0.6 - 3.8 % [facility] Erythrocyte distribution width (RBC) [Ratio] 16.1 % High 11.9 - 14.8 % [facility] Hematocrit (Bld) [Volume fraction] 44.9 % High 35.5 - 44.6 % [facility] Hemoglobin (Bld) [Mass/Vol] 14.4 g/dL 11.4 - 14.8 g/dL [facility] Immature granulocytes/100 WBC (Bld) 0.2 % 0.2 - 0.5 % [facility] Interpretation and review of laboratory results Abnormal [facility] Lymphocytes (Bld) [#/Vol] 3.81 10*3/uL High [facility] Lymphocytes/100 WBC (Bld) 45.9 % High 21.8 - 42.1 % [facility] MCH (RBC) [Entitic mass] 27.4 pg 25. 7 - 31.2 pg [facility] MCHC (RBC) [Mass/Vol] 32.1 % 31.3 - 34.0 % [facility] MCV (RBC) [Entitic vol] 85.5 fL 80.7 - 93.7 fL [facility] Monocytes (Bld) [#/Vol] 0.57 10*3/uL [facility] Monocytes/100 WBC (Bld) 6.9 % 5.6 - 10.2 % [facility] Neutrophils (Bld) [#/Vol] 3.69 10*3/uL [facility] Neutrophils/100 WBC (Bld) 44.5 % Low 46.0 - 68.6 % [facility] Nucleated RBC/100 WBC (Bld) [Ratio] 0.2 % High 0.0 - 0.0 % [facility] Platelet mean volume (Bld) [Entitic vol] [facility] Platelets (Bld) [#/Vol] 175 10*3/uL [facility] RBC (Bld) [#/Vol] 5.25 10*6/uL High [facility] WBC (Bld) [#/Vol] 8.3 10*3/uL 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 DIRECTOR APRIL Cordova PA-C [facility] Pager: [phone] Normal [facility] HCG, URINEon 12-17-2023 Beta HCG ( test) Ql (U) Negative Normal Negative [facility] Comment on above: Order Comment: Tabatha jean to patient->Automatic Result Comment: Nonp regnant females and males-Negative females-Positive Performed By: #### 2 378 ####SANDI Mayo ([id number])[place] [address] HCG, Urineon 12-17-2023 HCG ( test) Ql (U) Negative Negative [facility] Interpretation and review of laboratory results Normal [facility] HEMOGLOBIN A1Con 12-17-2023 HbA1c (Bld) [Mass fraction] 8.0 % High <=5.6 [facility] Comment on above: Order Comment: Relea se to patient->Automatic Result Comment: Refe rence Interval: <5.7% 5.7-6.4% Prediabetes > or = 6.5% Diabetes Targets for diabetes management: Type I <7.5% Type II <7.0% Performed By: #### 2 557 ####SANDI Mayo ([id number])[facility] ([facility])ONE [address] Hemoglobin [id number] By: Win ground Lab on 12-17-2023 HbA1c (Bld) [Mass fraction] 8 % High NINF - 5.6 % [facility] Interpretation and review of laboratory results Abnormal [facility] URINALYSIS, COMPLETEon 12-16 Bilirubin Ql (U) Negative Normal Negative [facility] Comment on above: Order Comment: Relea se to patient->Automatic Performed By: #### 2 100 ####SANDI BLACK W ([id number])[facility] ([facility])ONE [address] Character Clear Normal [facility] Comment on above: Order Comment: Relea se to patient->Automatic Performed By: #### 2 100 ####SANDI BLACK W ([id number])[facility] ([facility])ONE [address] Color (U) Light Yellow Normal [facility] Comment on above: Order Comment: Relea se to patient->Automatic Performed By: #### 2 100 ####SANDI BACCON W ([id number])[facility] ([facility])ONE [address] Glucose Ql (U) 4+ Abnormal Normal [facility] Comment on above: Order Comment: Relea se to patient->Automatic Performed By: #### 2 100 ####SANDI BACCON W ([id number])[facility] ([employer])[place] [address] [facility] Ketones Ql (U) Negative Normal Negative [facility] Comment on above: Order Comment: Relea se to patient->Automatic Performed By: #### 2 100 ####SANDI BLACK W ([id number])[facility] ([email or web address])ONE [facility] [place] [address] [place] Leukocyte esterase Test strip Ql (U) 25 Jacques/uL Abnormal Negative [facility] Comment on above: Order Comment: Relea se to patient->Automatic Performed By: #### 2 100 ####SANDI BACCON W ([id number])[facility] ([email or web address])ONE [facility] [place] [address] [place] Nitrite Ql (U) Negative Normal Negative [facility] Comment on above: Order Comment: Relea se to patient->Automatic Performed By: #### 2 100 ####SANDI BACCON W ([id number])[facility] ([facility] [address] [facility] pH (U) 6.5 [pH] Normal 5.0-8.0 [facility] Comment on above: Order Comment: Relea se to patient->Automatic Performed By: #### 2 100 ####SANDI BACCON W ([id number])[facility] ([facility] [address] [facility] Protein Ql (U) Negative Normal Neg.-Trace [facility] Comment on above: Order Comment: Relea se to patient->Automatic Performed By: #### 2 100 ####SANDI BACCON W ([id number])[facility] ([email or web address])[place] [address] [place] RBC (U) [#/Vol] 0.0 /uL Normal <=20.0 [facility] Comment on above: Order Comment: Relea se to patient->Automatic Performed By: #### 2 100 ####SANDI BACCON W ([id number])[facility] ([email or web address])ONE [facility] [place] [address] [place] Renal Epithelial Cells 0.0 /uL Normal <=20.0 [facility] Comment on above: Order Comment: Relea se to patient->Automatic Performed By: #### 2 100 ####SANDI BACCON W ([id number])[facility] ([email or web address])ONE [facility] [place] [address] [place] Specific gravity (U) [Rel density] 1.028 Normal Reference Range: 1.005-1.030 [facility] Comment on above: Order Comment: Relea se to patient->Automatic Performed By: #### 2 100 ####SANDI BACCON W ([id number])[facility] (BEAKER)ONE [facility] [place] [address] [facility] Squamous Epithelial Cells 3.0 /uL Normal <=20.0 [facility] Comment on above: Order Comment: Relea se to patient->Automatic Performed By: #### 2 100 ####SANDI BACCON W ([id number])[facility] (BEAKER)[place] [address] [place] Transitional Epithelial Cells 0.0 /uL Normal <=20.0 [facility] Comment on above: Order Comment: Relea se to patient->Automatic Performed By: #### 2 100 ####SANDI BACCON W ([id number])[facility] (BEAKER)[facility] [place] [address] [facility] Urobilinogen Normal Normal Normal [facility] Comment on above: Order Comment: Relea se to patient->Automatic Performed By: #### 2 100 ####SANDI BACCON W ([id number])[facility] (BEAKER)[facility] [place] [address] [place] Volume 12 mL Normal [facility] Comment on above: Order Comment: Relea se to patient->Automatic Performed By: #### 2 100 ####SANDI BACCON W ([id number])[facility] (BEAKER)[place] [address] [place] WBC (U) [#/Vol] 59.0 /uL High <=20.0 [facility] Comment on above: Order Comment: Relea se to patient->Automatic Performed By: #### 2 100 ####SANDI BACCON W ([id number])[facility] (BEAKER)[place] [address] [place] XR Chest Single viewon 12-16 [facility] Radiology Study observation (narrative) [facility] XR Chest Single viewOrdered By: Griffin Montes on 12-17-2023 [facility] Work Phone: BD BONE DENSITY DEXA AXIAL S Deann 09-06-2023 BD BONE DENSITY DEXA AXIAL SKELETON ORIGINAL EXAMINATION: BONE DENSITOMETRY09/05/2023 1:34 pm TECHNIQUE: Dual energy bone densitometry lumbar spine and left hip. COMPARISON: None HISTORY: Reason for Exam: Osteoporosis Screening FINDINGS: T Score Left Femoral Neck: -0.7 Left Femoral Neck: 0.771 (g/cm2) T Score Left Hip: -0.6 Left Hip: 0.875 (g/cm2) T Score Lumbar Spine: -1.3 Lumbar Spine: 0.905 (g/cm2) FRAX score: 10 year risk major osteoporotic fracture 6.3 %. 10 year risk hip fracture 0.4 %. The BHOF f/k/a NOF recommends that FDA-approved medical therapies be considered in post-menopausal women and men age >/= 50 years with a: * Hip or vertebral fracture, or * T-score of /= 20% for major osteoporotic fractures or * >/= 3% for hip fractures All treatment decisions require clinical judgement and consideration of individual patient factors, including patient preferences, comorbidities, previous drug use, risk factors not captured in the FRAX registered model (e.g., frailty, falls, vitamin D deficiency, increased bone turnover, interval significant decline in bone density) and possible under- or over-estimation of fracture risk by FRAX. IMPRESSION: Osteopenia. Interpreted by: Goyo Renner MD Preliminary Report By: Goyo Renner MD Electronically signed By Goyo Renner MD Dictated Date: 09/06/2023 8:38:19 AM Prelim Date: 09/06/2023 8:39:56 AM Sign Date: 09/06/2023 8:39:56 AM Ordering Provider: PK SLOAN [facility] ([place]) MA MAMMOGRAM SCREENING BILAT ERAL W/TOMOon 09-06-2023 MA MAMMOGRAM SCREENING BILATERAL W/REECE ORIGINAL FROM: [address] [address] PROCEDURE FOR: KAMINI IRBY [address] [place] [address] Home: PID#: [id number] Exam#: [id number] : 1965 Age: 58 TO: PK SLOAN DO [address] [facility] [address] [place] [address] Fax: NO FAX EXAMINATION: SCREENING DIGITAL BILATERAL MAMMOGRAM WITH TOMOSYNTHESIS, 09/05/2023 12:50 pm TECHNIQUE: Screening mammography of the bilateral breasts was performed with tomosynthesis. 2D standard and 3D tomosynthesis combination imaging performed through both breasts in the MLO and CC projection. Computer aided detection was utilized in the interpretation of this exam. COMPARISON: January 09, 2022, January 18, 2022, May 05, 2022 HISTORY: Breast cancer screening. FINDINGS: BREAST DENSITY: Scattered fibroglandular tissue There are bilateral benign-type calcifications. There is no significant mass, architectural distortion or microcalcification. Fibroglandular pattern is stable. IMPRESSION: No mammographic evidence of malignancy. Continued screening with annual mammograms is recommended. Amos Blancozick risk calculations, generated with the history provided, report this patient's 10 year risk and lifetime risk for developing breast cancer at 2.9% and 8.4%, respectively. Based on this assessment tool, if the patient's calculated lifetime risk is below 20%, then the patient is considered at average risk for developing breast cancer. If the patient's calculated lifetime risk is at or above 20%, then the patient is considered high risk for developing breast cancer and may be a candidate for supplemental breast MRI screening in addition to annual mammographic screening per the [employer] [employer]. BIRADS: MAMMOGRAM BI-RADS: 2: Benign finding RECALL: 1 year screening RECALL TYPE: mammo LETTER SENT: Normal BI-RADS 1 and 2 Interpreted by: Barbara Alonzo Preliminary Report By: Barbara Alonzo Electronically signed By Barbara Alonzo Dictated Date: 09/06/2023 9:11:27 AM Prelim Date: 09/06/2023 9:29:14 AM Sign Date: 09/06/2023 9:29:14 AM Ordering Provider: PK SLOAN Machinist Set Up: PAKO DEY(R) RDMS letter sent: Normal BI-RADS 1 and 2 Mammogram BI-RADS: 2 Benign Normal [facility] ([place]) Thin prep Papanicolaou smear with manual screeningOrdered By: Sulaiman Roca on 07-07-2023 Thin prep Papanicolaou smear with manual screening 62 mg/dL 74-106 [facility] Comment on above: MANAGEMENT OF PATIEN T CARE PER NURSING PROTOCOL .Auto Diffon 06-08-2023 Basophil, Absolute 0.1 10 3/mcL Normal 0.0-0.2 [facility] ([place]) Comment on above: Performed By: #### A AGUSTÍN, ADIFF, FERR, FE, CBC ####B[address]anna [address] [place], [place] [address] Basophils/100 WBC (Bld) 0.5 % Normal 0.0-2.5 [facility] ([place]) Comment on above: Performed By: #### A AGUSTÍN, ADIFF, FERR, FE, CBC ####Brianna [address] [place], [place] [address] Eosinophil, Absolute 0.3 10 3/mcL Normal 0.0-0.4 [facility] ([place]) Comment on above: Performed By: #### A AGUSTÍN, ADIFF, FERR, FE, CBC ####Brianna [address] [place], [place] [address] Eosinophils/100 WBC (Bld) 3.2 % Normal 0.0-7.0 [facility] ([place]) Comment on above: Performed By: #### A AGUSTÍN, ADIFF, FERR, FE, CBC ####B[address]anna [address] [place], [place] [address] Lymphocyte, Absolute 4.4 10 3/mcL High 0.8-3.9 [facility] ([place]) Comment on above: Performed By: #### A AGUSTÍN, ADIFF, FERR, FE, CBC ####Brianna [address] [place], [place] [address] Lymphocytes/100 WBC (Bld) 41.3 % Normal 10.0-50.0 [facility] ([place]) Comment on above: Performed By: #### A AGUSTÍN, ADIFF, FERR, FE, CBC ####B[address]anna [address] [place], [place] [address] Monocyte, Absolute 0.7 10 3/mcL Normal 0.2-1.0 [facility] ([place]) Comment on above: Performed By: #### A AGUSTÍN, ADIFF, FERR, FE, CBC ####B[address]anna [address] [place], [place] [address] Monocytes/100 WBC (Bld) 6.9 % Normal 1.7-13.0 [facility] ([place]) Comment on above: Performed By: #### A AGUSTÍN, ADIFF, FERR, FE, CBC ####Brianna [address] [address] Neutrophils/100 WBC (Bld) 48.1 % Normal 37.0-80.0 [facility] ([place]) Comment on above: Performed By: #### A AGUSTÍN, ADIFF, FERR, FE, CBC ####Brianna [address] [address] .NEUABSon 06-08-2023 Neutrophil, Absolute 5.1 10 3/mcL Normal 2.9-6.2 [facility] ([place]) Comment on above: Performed By: #### A AGUSTÍN, ADIFF, FERR, FE, CBC ####Brianna [address] [address] CBCon 06-08-2023 Erythrocyte distribution width (RBC) [Ratio] 15.8 % High 11.5-14.5 [facility] ([place]) Comment on above: Performed By: #### A AGUSTÍN, ADIFF, FERR, FE, CBC ####Brianna [address] [place], [place] [address] Hematocrit (Bld) [Volume fraction] 45.0 % Normal 37.0-47.0 [facility] ([place]) Comment on above: Performed By: #### A AGUSTÍN, ADIFF, FERR, FE, CBC ####[facility] [place], [place] [address] Hgb 14.9 G/dL Normal 12.0-16.0 [facility] ([place]) Comment on above: Performed By: #### A AGUSTÍN, ADIFF, FERR, FE, CBC ####Mitchell [address] [place], [place] [address] MCH (RBC) [Entitic mass] 28.2 pg Normal 27.0-31.2 [facility] ([place]) Comment on above: Performed By: #### A AGUSTÍN ADANDRE, FERR, FE, CBC ####B[address] [place], [place] [address] MCHC 33.1 G/dL Normal 33.0-37.0 [facility] ([place]) Comment on above: Performed By: #### A AGUSTÍN ADIFF, FERR, FE, CBC ####[address] [place], [place] [address] MCV (RBC) [Entitic vol] 85.1 fL Normal 80.0-94.0 [facility] ([place]) Comment on above: Performed By: #### A AGUSTÍN ADIFF, FERR, FE, CBC ####[address] [place], [place] [address] Platelet 251 10 3/mcL Normal 130-400 [facility] ([place]) Comment on above: Performed By: #### A AGUSTÍN ADIFF, FERR, FE, CBC ####[address] [place], [place] [address] Platelet mean volume (Bld) [Entitic vol] 8.3 fL Normal 7.4-10.4 [facility] ([place]) Comment on above: Performed By: #### A AGUSTÍN ADIFF, FERR, FE, CBC ####[address] [place], [place] [address] RBC 5.29 10 6/mcL Normal 4.20-5.40 [facility] ([place]) Comment on above: Performed By: #### A AGUSTÍN, ADIFF, FERR, FE, CBC ####[address] [place], [place] [address] WBC 10.5 10 3/mcL Normal 4.6-10.8 [facility] ([place]) Comment on above: Performed By: #### A AGUSTÍN, ADIFF, FERR, FE, CBC ####[address] [place], [place] [address] FEon 06-08-2023 Iron [Mass/Vol] 66 ug/dL Normal 50-170 [facility] ([place]) Comment on above: Performed By: #### A AGUSTÍN, ADIFF, FERR, FE, CBC ####B[address]anna [address] [place], [place] [address] [place] 06-08-2023 Ferritin [Mass/Vol] 34.0 ng/mL Normal 8.0-252.0 [facility] ([place]) Comment on above: Performed By: #### A AGUSTÍN, ADIFF, FERR, FE, CBC ####Brianna [address] [place], [place] [address] LABORATORYOrdered By: SYSTEM SYSTEM on 06-08-2023 Basophil, Absolute 0.1 103/mcL Normal 0.0 - 0.2 10^3/mcL AO Workflow SS Basophils/100 WBC (Bld) 0.5 % Normal 0.0 - 2.5 % AO Workflow SS Eosinophil, Absolute 0.3 103/mcL Normal 0.0 - 0 .4 10^3/mcL AO Workflow SS Eosinophils/100 WBC (Bld) 3.2 % Normal 0.0 - 7.0 % AO Workflow SS Erythrocyte distribution width (RBC) [Ratio] 15.8 % High 11.5 - 14.5 % AO Workflow SS Ferritin [Mass/Vol] 34.0 ng/mL Normal 8.0 - 25 2.0 ng/mL AO ADM SS Hematocrit (Bld) [Volume fraction] 45.0 % Normal 37.0 - 47.0 % AO Workflow SS Hemoglobin (Bld) [Mass/Vol] 14.9 G/dL Normal 12.0 - 16.0 G/dL AO Workflow SS Iron [Mass/Vol] 66 ug/dL Normal 50 - 170 mcg/dL AO ADM SS Lymphocyte, Absolute 4.4 103/mcL High 0.8 - 3 .9 10^3/mcL AO Workflow SS Lymphocytes/100 WBC (Bld) 41.3 % Normal 10.0 - 50.0 % AO Workflow SS MCH (RBC) [Entitic mass] 28.2 pg Normal 27. 0 - 31.2 pg AO Workflow SS MCHC 33.1 G/dL Normal 33.0 - 37.0 G/dL AO Workflow SS MCV (RBC) [Entitic vol] 85.1 fL Normal 80.0 - 94.0 fL AO Workflow SS Monocyte, Absolute 0.7 103/mcL Normal 0.2 - 1.0 10^3/mcL AO Workflow SS Monocytes/100 WBC (Bld) 6.9 % Normal 1.7 - 13.0 % AO Workflow SS Neutrophil, Absolute 5.1 103/mcL Normal 2.9 - 6 .2 10^3/mcL AO Workflow SS Neutrophils/100 WBC (Bld) 48.1 % Normal 37.0 - 80.0 % AO Workflow SS Platelet mean volume (Bld) [Entitic vol] 8.3 fL Normal 7.4 - 10.4 fL AO Workflow SS Platelets (Bld) [#/Vol] 251 103/mcL Normal 130 - 400 10^3/mcL AO Workflow SS RBC (Bld) [#/Vol] 5.29 106/mcL Normal 4.20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 Smoking status: Every Day Packs/day: 1.00 Types: Cigarettes Vaping Use Vaping Use: Never used Substance Use Topics Alcohol use: Not Currently Drug use: Not Currently Physical Examination Vitals BP (!) 141/48 Pulse 75 Temp 36.5 ?C (97.7 ?F) (Oral) Resp 18 Ht 157.5 cm (5' 2) Wt 117.9 kg (260 lb) SpO2 (!) 94% BMI 47.55 kg/m? General AANDO. NAD. Cooperative throughout entire interview. Appropriate mood and affect. Left Upper Extremity Dorsal hand erythema and swelling. Erythema localized over dorsal thumb and 1st web space. Area of erythema demarcated with a marker Small opening in the 1st web space. Area overlying with dried fluid coming from wound. No drainage expressible from the wound. No palpable abscess. But area indurated SILT Ax/M/U/R - diminished at baseline Motor intact Ax/AIN/PIN/U. R/U pulses palpable; BCR all digits. Compartment soft and compressible Physical examination otherwise non-contributory to consultation. Labs Recent Labs 10/05/22 0212 NA 135* K 5.4* CHLOR 99 CO2 29 BUN 14 CREAT 0.74 GLUC 150* ANION 7* CA 10.0 WBC 13.69* HB 13.4 HCT 43.5 PLT 263 Imaging X-rays of the left hand were obtained, reviewed, and interpreted. Images show no acute fracture or dislocation. No evidence of osteomyelitis Assessment Kamini Irby is a 57 year old female left hand cellulitis Plan Management per primary Pain control Weight-bearing status: WBAT LUE Antibiotic(s): per primary Imaging: No further orthopedic imaging needed PT/OT - appreciate evaluation AND recommendations No plan for orthopedic surgery intervention. Recommend IV abx. We will monitor exam following a few doses of abx. Following abx, patient should be discharged home and follow up with Dr. Andrews in office. Disposition: home Discussed with Dr. Andrews who agrees with the above recommendations. Franklin Nichole MD Orthopaedic Surgery - PGY 3 3:16 AM 10/05/2022 Pager #[phone] Normal [facility] CONSULT PROGon 10-05-2022 CONSULT PROG HNO ID: [id number] Author: Amy Anthony RPh Service: Pharmacy Author Type: Pharmacist Type: Consult Progress Note Filed: 10/06/2022 8:56 AM Note Text: PHARMACY VANCOMYCIN DOSING NOTE Patient Name: Kamini Irby Admission Date: 10/05/2022 Date of Consult: 10/05/2022 Time of Consult: 7:37 AM Indication: Skin/Soft tissue infection Goal Range: 10-20 mcg/mL RECOMMENDATIONS/PLAN: Pharmacy consulted for vancomycin dosing for Kamini Irby, a 57 year old female. 1. Patient is currently ordered Vancomycin 1.75 IV once. Today is day 1 of therapy. 2. No vancomycin level has been drawn for this dosing regimen. 3. Will schedule vancomycin to 1.25 g with a dosing interval of q12h. Patient was given a one time loading dose based on actual body weight and will schedule subsequent doses based on adjusted body weight as patient is morbidly obese at risk for accumulation. Patient does not have any documented baseline renal function but current serum creatinine is WNL. 4. The next vancomycin level has been ordered for 10/07/22 @ 1230 (Completed) We will follow patient renal function, vancomycin levels and doses with you during the course of therapy. Additional recommendations will appear in follow up notes. If you have any questions, please contact pharmacy at ext [phone]. Age: [age] year old Allergies: ALLERGIES Allergen Reactions Lovenox [Enoxaparin] Itching Last 3 Encounter Wt Readings: Date: Wt: 10/04/2022 117.9 kg (260 lb) Last 1 Encounter Ht Readings: Date: Ht: 10/04/2022 157.5 cm (5' 2) CrCl: 103.5 mL/min Temp (24hrs), Av.7 ?C (98 ?F), Min:36.5 ?C (97.7 ?F), Max:36.8 ?C (98.2 ?F) - Current Temp: 36.8 ?C (98.2 ?F) Labs BUN (mg/dL) Date Value 10/05/2022 14 Creatinine (mg/dL) Date Value 10/05/2022 0.74 WBC (k/uL) Date Value 10/05/2022 13.69 (H) Vancomycin Levels: No results found for: NORMA [facility] ED NOTEon 10-05-2022 ED NOTE HNO ID: [id number] Author: Nelida Hooper RN Service: Nursing Author Type: Registered Nurse Type: ED Notes Filed: 10/05/2022 5:16 AM Note Text: Report given to RN. [facility] ED NOTE HNO ID: [id number] Author: Nelida Hooper RN Service: Nursing Author Type: Registered Nurse Type: ED Notes Filed: 10/05/2022 5:07 AM Note Text: Attempted to call report again, stuck on hold w/ no answer. [facility] ED NOTE HNO ID: [id number] Author: Nelida Hooper RN Service: Nursing Author Type: Registered Nurse Type: ED Notes Filed: 10/05/2022 4:35 AM Note Text: Attempted to call report, RN not available. [facility] ED NOTE HNO ID: [id number] Author: Nelida Hooper RN Service: Nursing Author Type: Registered Nurse Type: ED Notes Filed: 10/05/2022 12:33 AM Note Text: Xray called. [facility] ED NOTE HNO ID: [id number] Author: Favian Jesus RN Service: ? Author Type: Registered Nurse Type: ED Notes Filed: 10/05/2022 12:06 AM Note Text: Bed: 28-ED Expected date: Expected time: Means of arrival: Comments: triage [facility] ED PROV NOTEon 10-05-2022 ED PROV NOTE HNO ID: [id number] Author: Avelino Mcgee MD Service: Emergency Medicine Author Type: Physician Type: ED Provider Notes Filed: 10/07/2022 4:30 AM Note Text: ED Provider Note Patient Name: Kaimni Irby : 1965 SERVICE DATE: 10/04/22 History Patient presents with: Wound Infection: Pt to ED with c/o infection to L hand. Pt reports that she was at [facility] and they weren't able to do anything to help me, so I came here. Pt reports that 1 month ago sustained an injury from kitchen knife and Tuesday infection started. Pt presents with L hand red and swollen, denies limited ROM. Pt ambulatory to triage and A+Ox3 This is a 57-year-old female with PMH significant for insulin-dependent diabetes who presents to the ED due to concern for infected wound dorsal lateral aspect of left hand mostly at the base of thumb. Patient reports that he accidentally stabbed her hand in the same area about a month ago when she was opening a plastic hand. Three days ago she noted worsening redness, pain, and swelling. She was seen today at [facility] for similar complaints. Patient was given IV vancomycin, Zosyn. She was not septic. Attempts to transfer to another hospital for hand surgery consult was unsuccessful. Patient reportedly left AMA. During my initial evaluation, patient was comfortable, well-appearing. Denies any fever, chills, or malaise. No GI, or symptoms. She was nontachycardic, with stable vital signs. History reviewed. No pertinent past medical history. History reviewed. No pertinent surgical history. No family history on file. Social History Tobacco Use Smoking status: Every Day Packs/day: 1.00 Types: Cigarettes Smokeless tobacco: Not on file Vaping Use Vaping Use: Never used Substance and Sexual Activity Alcohol use: Not Currently Drug use: Not Currently Sexual activity: Not on file ALLERGIES Allergen Reactions Lovenox [Enoxaparin] Itching Review of Systems Constitutional: Negative for chills, diaphoresis and fever. HENT: Negative for nosebleeds. Eyes: Negative for redness and visual disturbance. Respiratory: Negative for shortness of breath and wheezing. Cardiovascular: Negative for chest pain and palpitations. Gastrointestinal: Negative for abdominal pain, diarrhea, nausea and vomiting. Genitourinary: Negative for dysuria and flank pain. Skin: Positive for color change and wound. Neurological: Negative for syncope, weakness, light-headedness and headaches. Psychiatric/Behavioral : Negative for agitation and confusion. Physical Exam Vitals [10/04/221938] BP Pulse Temp Temp src Resp SpO2 Weight Height (!) 141/48 75 36.5 ?C (97.7 ?F) Oral 18 (!) 94 % 117.9 kg (260 lb) 1.575 m (5' 2) Physical Exam Constitutional: General: She is awake. She is not in acute distress. Appearance: She is well-developed, well-groomed and overweight. She is not toxic-appearing or diaphoretic. HENT: Mouth/Throat: Pharynx: Oropharynx is clear. Neck: Vascular: No JVD. Cardiovascular: Rate and Rhythm: Normal rate and regular rhythm. Pulses: Radial pulses are 2+ on the right side and 2+ on the left side. Dorsalis pedis pulses are 2+ on the right side and 2+ on the left side. Heart sounds: No murmur heard. No friction rub. No gallop. Pulmonary: Effort: No accessory muscle usage or respiratory distress. Breath sounds: No stridor. No wheezing. Abdominal: General: There is no distension. Palpations: There is no fluid wave or pulsatile mass. Tenderness: There is no abdominal tenderness. There is no right CVA tenderness, left CVA tenderness or rebound. Musculoskeletal: General: No swelling. Right hand: Tenderness present. Normal range of motion. Normal pulse. Left hand: No tenderness. Normal range of motion. Normal pulse. Cervical back: Neck supple. No rigidity or tenderness. Comments: - 4 x 4 centimeter poorly demarcated erythema on dorsal lateral aspect of left hand - Tenderness to palpation of same area -Patient able to fully extend all fingers -No tenderness to palpation on the palmar aspect of left hand Neurological: Mental Status: She is oriented to person, place, and time. Mental status is at baseline. Sensory: No sensory deficit. Motor: No weakness. Diagnostic Testing ED Labs Ordered and Reviewed C-REACTIVE PROTEIN (CRP) - Abnormal; Notable for the following components: Result Value Ref Range CRP 14.0 (*) <0.9 mg/dL All other components within normal limits SED RATE WESTERGREN CBC + DIFF BASIC METABOLIC PNL Procedures ED Course / Clinical Impression Clinical Impressions as of 10/05/22 1725 Cellulitis of left upper extremity MDM / Disposition / Plan This is a 57-year-old female with PMH significant for insulin-dependent diabetes presents to the ED due to infected wound on dorsal lateral aspect of left hand. See HPI for details of presentation, exam as no (more content not included)... Normal [facility] HISTORY PHYSICALon HISTORY PHYSICAL HNO ID: [id number] Author: Julianne Tinsley DO Service: Hospital Medicine Author Type: Physician Type: HANDP Filed: 10/05/2022 1:55 PM Note Text: DEPARTMENT OF HOSPITAL MEDICINE HISTORY AND PHYSICAL EXAM SERVICE DATE: 10/05/2022 SERVICE TIME: 1:32 PM Primary Care Physician: Pk Sloan DO NIGHT AND WEEKEND COVERAGE: [place] COVERAGE: After 7pm, please call cross cover pager #[phone] Subjective CHIEF COMPLAINT: right hand swelling and pain HPI: This is a 57 year old female with PMHx of Morbid obesity, GHANSHYAM, HFpEF, HTN, HLD, DM2, history of DVT/PE, MDD, arthritis who presented due to worsening redness and swelling of her left hand. Patient stated that one month ago she was attempting to open up a sealed bottle with a knife and ended up stabbing herself with a clean knife in the process. She states on Tuesday she started to notice pain and swelling around the base of the thumb and dorsum of her right hand. She states on 10/04 she woke up with worsening redness and pain and went to the [facility] were she states she was given a dose of vancomycin and was told her bulk driver herself to the [facility] for evaluation of her hand. She does not recall when her last tetanus vaccination was. She denies allergies to antibiotics. She has not been treated with antibiotics in over 3 months time. History reviewed. No pertinent past medical history. History reviewed. No pertinent surgical history. No family history on file. Social History Tobacco Use Smoking status: Every Day Packs/day: 1.00 Types: Cigarettes Vaping Use Vaping Use: Never used Substance Use Topics Alcohol use: Not Currently Drug use: Not Currently MEDICATIONS: Reviewed No medications prior to admission. ALLERGIES Allergen Reactions Lovenox [Enoxaparin] Itching REVIEW OF SYSTEM: GENERAL: No weight loss, malaise or fevers HEENT: No changes in hearing or vision, no nose bleeds or other nasal problems RESPIRATORY: negative for cough or shortness of breath CARDIOVASCULAR: denies chest pain, lower extremtiy swelling or orthopnea GI: No nausea, vomiting, or diarrhea : No history of dysuria, frequency or incontinence MUSCULOSKELETAL: right hand pain, erythema and swelling as noted in HPI SKIN: See HPI ENDOCRINE: Negative for cold or heat intolerance, polyuria, polydipsia and goiter NEURO: No history of headaches, syncope, paralysis, seizures or tremors Objective PHYSICAL EXAM: BP 142/54 Pulse 56 Temp (Src) 97 (Temporal) Resp 18 Ht 5' 2 (1.58m) Wt 260 lb (117.9kg) SpO2 97% BMI 47.54 kg/(m2). O2 Therapy: Nasal Cannula, Liters: 3 Physical Exam Performed: GENERAL: Alert, no distress, cooperative, Morbidly Obese SKIN: erythema and blistering around the base of the thumb extending along the dorsum of the hand, area of purulence at the base of the thumb EYES: PERRLA, EOMI OROPHARYNX: Lips, mucosa, and tongue normal. Teeth and gums normal. Oropharynx normal. LUNGS: Lungs clear to auscultation, Good diaphragmatic excursion ABDOMEN: Abdomen soft, non-tender, BS normal, No masses or organomegaly EXTREMITIES: right hand swelling involving the base of the thumb and dorsum of the hand, area has been marked with marker Cardiac: RR, no murmurs, no elevated JVP Lines, Drains, and Airways Line Duration Peripheral 10/05/22 0213 Right Antecubital 20 Gauge <1 day Reviewed lines and needs to be continued: REASONS: Intravenous antibiotics DATA: Diagnostic tests reviewed for today's visit: Most recent labs and imaging results. CRP 14, ESR 46 CBC with mild leukocytosis BMP with mild hypokalemia no RICARDO Patient was evaluated by orthopedic surgery Assessment/Plan Principal Problem: Cellulitis POA: Yes Assessment AND Plan: start vancomycin and unasyn, culture obtain from wound and has been sent, orthopedics following, continue compress with warm wash cloth, patient has not had tentus vaccination in last 10 years so will give TDAP, orthopedic surgery is following, trend CBC Active Problems: GHANSHYAM (obstructive sleep apnea) POA: Unknown Assessment AND Plan: patient does not know home setting, asked her to have family bring in home equipment DM2 (diabetes mellitus, type 2) (HCC) POA: Unknown Assessment AND Plan: patient normally takes 60 units lantus in AM and 40 units QHS. Will reduce dose by 20% while in hospital and start 40 units lantus BID, SSI level 2, continue farxiga and glimepiride, hypoglycemia protocol HTN (hypertension) POA: Unknown Assessment AND Plan: continue atenolol HLD (hyperlipidemia) POA: Unknown Assessment AND Plan: continue pravastatin Chronic heart failure with preserved ejection fraction (HCC) POA: Unknown Assessment AND Plan: continue lasix 40 mg, 2 gram sodium restriction and 2 liter fluid restriction, patient is not in acute decompensation History of DVT (deep vein thrombosis) POA: Unknown Assessment AND Plan: continue Xarelto MDD (amilcar (more content not included)... Normal [facility] XR HAND 3V PA/LAT/OBL LTon 0 10-05-2022 XR HAND 3V PA/LAT/OBL LT * * *Final Repo rt* * * DATE OF EXAM: Oct 05 2022 12:49AM [id number] - XR HAND 3V PA/LAT/OBL LT / PROCEDURE REASON: Osteomyelitis, hand * * * * Physician Interpretation * * * * EXAMINATION: XR HAND 3V PA/LAT/OBL LT CLINICAL HISTORY: Osteomyelitis, hand Technique: XR HAND 3V PA/LAT/OBL LT -- LEFT with 3 views on 3 images Comparison: None RESULT: No acute fracture or osseous lesions are identified. There is moderate DJD of the thumb CMC and triscaphe joint with joint space narrowing and osteophytes. Soft tissue structures are unremarkable. No periostitis or cortical disruption is identified. No soft tissue gas seen. IMPRESSION: No acute findings. No radiographic evidence of osteomyelitis Cotton Farmer: PSCB Transcribe Date/Time: Oct 05 2022 1:10A Dictated by : NICOLE OWEN MD This examination was interpreted and the report reviewed and electronically signed by: NICOLE OWEN MD on Oct 05 2022 1:26AM EST [id number] [facility] .Auto Diffon 07-03-2023 Basophil, Absolute 0.1 10 3/mcL Normal 0.0-0.2 [facility] ([place]) Comment on above: Performed By: #### C BC, ANEU, GFR, MDW, ADIFF, BMP #### [address] [address] Basophils/100 WBC (Bld) 0.4 % Normal 0.0-2.5 [facility] ([place]) Comment on above: Performed By: #### C BC, ANEU, GFR, MDW, ADIFF, BMP #### [address] [address] Eosinophil, Absolute 0.4 10 3/mcL Normal 0.0-0.4 [facility] ([place]) Comment on above: Performed By: #### C BC, ANEU, GFR, MDW, ADIFF, BMP #### [address] [address] Eosinophils/100 WBC (Bld) 2.2 % Normal 0.0-7.0 [facility] ([place]) Comment on above: Performed By: #### C BC, ANEU, GFR, MDW, ADIFF, BMP #### [address] [address] Lymphocyte, Absolute 5.0 10 3/mcL High 0.8-3.9 [facility] ([place]) Comment on above: Performed By: #### C BC, ANEU, GFR, MDW, ADIFF, BMP #### [address] [address] Lymphocytes/100 WBC (Bld) 29.9 % Normal 10.0-50.0 [facility] ([place]) Comment on above: Performed By: #### C BC, ANEU, GFR, MDW, ADIFF, BMP #### [address] [address] Monocyte, Absolute 0.9 10 3/mcL Normal 0.2-1.0 [facility] ([place]) Comment on above: Performed By: #### C BC, ANEU, GFR, MDW, ADIFF, BMP #### [address] [address] Monocytes/100 WBC (Bld) 5.4 % Normal 1.7-13.0 [facility] ([place]) Comment on above: Performed By: #### C BC, ANEU, GFR, CHYNA, SHAMAR, BMP #### [id number] [place], [place] [address] Neutrophils/100 WBC (Bld) 62.1 % Normal 37.0-80.0 [facility] ([place]) Comment on above: Performed By: #### C BC, ANEU, GFR, CHYNA, SHAMAR, BMP #### [address] [address] .GFRon 10-04-2022 GFR 84 ml/min/1.73sqm Normal [facility] ([place]) Comment on above: Result Comment: GFR Population mean for , Non- Americans Ages 20-29 = 116 mL/min/1.73 sq.m. Ages 30-39 = 107 mL/min/1.73 sq.m. Ages 40-49 = 99 mL/min/1.73 sq.m. Ages 50-59 = 93 mL/min/1.73 sq.m. Ages 60-69 = 85 mL/min/1.73 sq.m. Ages 70+ = 75 mL/min/1.73 sq.m. Chronic Kidney Disease: Less than 60 mL/min/1.73 square meters End Stage Renal Disease: Less than 15 mL/min/1.73 square meters Performed By: #### C BC, ANEU, GFR, CHYNA, SHAMAR, BMP #### [address] [address] GFR Non- 69 ml/min/1.73sqm Normal [facility] ([place]) Comment on above: Result Comment: GFR Population mean for , Non- Americans Ages 20-29 = 116 mL/min/1.73 sq.m. Ages 30-39 = 107 mL/min/1.73 sq.m. Ages 40-49 = 99 mL/min/1.73 sq.m. Ages 50-59 = 93 mL/min/1.73 sq.m. Ages 60-69 = 85 mL/min/1.73 sq.m. Ages 70+ = 75 mL/min/1.73 sq.m. Chronic Kidney Disease: Less than 60 mL/min/1.73 square meters End Stage Renal Disease: Less than 15 mL/min/1.73 square meters Performed By: #### C BC, ANEU, GFR, MDW, ADIFF, BMP #### [address] [address] .MDWon 10-04-2022 Monocyte Distribution Width 19.15 Normal 0.00-20.00 [facility] ([place]) Comment on above: Result Comment: For ED adult patients suspected of sepsis, MDW<=20.0 does not rule out sepsis or risk of sepsis Performed By: #### C BC, ANEU, GFR, MDW, ADIFF, BMP #### [address] [address] .NEUABSon 10-04-2022 Neutrophil, Absolute 10.3 10 3/mcL High 2.9-6.2 [facility] ([place]) Comment on above: Performed By: #### C BC, ANEU, GFR, MDW, ADIFF, BMP #### [address] [address] BMPon 10-04-2022 BUN/Creatinine Ratio 18 ratio Normal 7-27 [facility] ([place]) Comment on above: Performed By: #### C BC, ANEU, GFR, MDW, ADIFF, BMP #### [address] [address] Calcium [Mass/Vol] 9.5 mg/dL Normal 8.4-10.2 [facility] ([place]) Comment on above: Performed By: #### C BC, ANEU, GFR, MDW, ADIFF, BMP #### [address] [address] Chloride [Moles/Vol] 101 mmol/L Normal 98-107 [facility] ([place]) Comment on above: Performed By: #### C BC, ANEU, GFR, MDW, ADIFF, BMP #### [address] [address] CO2 [Moles/Vol] 32 mmol/L High 22-29 [facility] ([place]) Comment on above: Performed By: #### C BC, ANEU, GFR, MDW, ADIFF, BMP #### [address] [address] Creatinine [Mass/Vol] 0.85 mg/dL Normal 0.55-1.02 [facility] ([place]) Comment on above: Performed By: #### C BC, ANEU, GFR, MDW, ADIFF, BMP #### [address] [address] Electrolyte Balance 10.0 mEq/L Normal 4.0-15.0 [facility] ([place]) Comment on above: Performed By: #### C BC, ANEU, GFR, MDW, ADIFF, BMP #### [address] [address] Glucose [Mass/Vol] 159 mg/dL High 70-105 [facility] ([place]) Comment on above: Performed By: #### C BC, ANEU, GFR, MDW, ADIFF, BMP #### [address] [address] Potassium [Moles/Vol] 5.3 mmol/L High 3.5-5.1 [facility] ([place]) Comment on above: Performed By: #### C BC, ANEU, GFR, MDW, ADIFF, BMP #### [address] [address] Sodium [Moles/Vol] 143 mmol/L Normal 136-145 [facility] ([place]) Comment on above: Performed By: #### C BC, ANEU, GFR, MDW, ADIFF, BMP #### [address] [address] Urea nitrogen [Mass/Vol] 15 mg/dL Normal 7-18 [facility] ([place]) Comment on above: Performed By: #### C BC, ANEU, GFR, MDW, ADIFF, BMP #### [address] [address] CBCon 10-04-2022 Erythrocyte distribution width (RBC) [Ratio] 15.1 % High 11.5-14.5 [facility] ([place]) Comment on above: Performed By: #### C BC, ANEU, GFR, MDW, ADIFF, BMP #### [address] [address] Hematocrit (Bld) [Volume fraction] 43.9 % Normal 37.0-47.0 [facility] ([place]) Comment on above: Performed By: #### C BC, ANEU, GFR, MDW, ADIFF, BMP #### [place] [address] Hgb 14.3 G/dL Normal 12.0-16.0 [facility] ([place]) Comment on above: Performed By: #### C BC, ANEU, GFR, MDW, ADIFF, BMP #### [place] [id number] MCH (RBC) [Entitic mass] 27.7 pg Normal 27.0-31.2 [facility] ([place]) Comment on above: Performed By: #### C BC, ANEU, GFR, MDW, ADIFF, BMP #### [place] [address] MCHC 32.6 G/dL Low 33.0-37.0 [facility] ([place]) Comment on above: Performed By: #### C BC, ANEU, GFR, MDW, ADIFF, BMP #### [place] [id number] MCV (RBC) [Entitic vol] 85.2 fL Normal 80.0-94.0 [facility] ([place]) Comment on above: Performed By: #### C BC, ANEU, GFR, MDW, ADIFF, BMP #### [place] [id number] Platelet 302 10 3/mcL Normal 130-400 [facility] ([place]) Comment on above: Performed By: #### C BC, ANEU, GFR, MDW, ADIFF, BMP #### [place] [id number] [place], [place] [address] Platelet mean volume (Bld) [Entitic vol] 7.7 fL Normal 7.4-10.4 [facility] ([place]) Comment on above: Performed By: #### C BC, ANEU, GFR, MDW, ADIFF, BMP #### [place] [id number] [place], [place] [address] RBC 5.16 10 6/mcL Normal 4.20-5.40 [facility] ([place]) Comment on above: Performed By: #### C BC, ANEU, GFR, MDW, ADIFF, BMP #### [place] [address] [place], [place] [address] WBC 16.6 10 3/mcL High 4.6-10.8 [facility] ([place]) Comment on above: Performed By: #### C BC, ANEU, GFR, MDW, ADIFF, BMP #### [place] [address] [place], [place] [address] [facility] CRP [Mass/Vol] 14.0 mg/dL High <0.9 [facility] Comment on above: Order Comment: Speci men Type: BLOOD SPECIMEN Ordering Facility: [facility] Address: [address] [place] [address] Performed By: #### 1 [id number] #### [facility] CLIA [id number] [address] OF [facility] ED NOTEon 10-04-2022 ED NOTE HNO ID: [id number] Author: Lourdes Momin RN Service: Emergency Medicine Author Type: Registered Nurse Type: ED Notes Filed: 10/04/2022 7:56 PM Note Text: Pt seen by provider during triage Normal [facility] ED Triage Noteon 10-04-2022 ED Triage Note HNO ID: [id number] Author: Negro Irby APRN.CNP Service: Emergency Medicine Author Type: Nurse Practitioner Type: ED Triage Notes Filed: 10/04/2022 8:07 PM Note Text: ED INTAKE NOTE Patient Name: Kamini Irby Service Date: 10/04/22 BRIEF HPI: Provider in triage. As provider in triage, my care is limited to quick triage assessment and initiation of any orders that may be able to be performed during the triage process. Patient is a 57-year-old female with visible swelling erythema and soft tissue infection to right hand. Patient was at [facility] and received what she believes to be IV vancomycin earlier today with a prescription for Bactrim and states that she was told to follow-up with an orthopedic of their facility in 2 days however patient arrives today concerned that further evaluation is necessary. Patient has laboratory work in folder along with negative x-ray for soft tissue. Patient denies dizziness chest pain shortness of breath or difficulty breathing. Patient states she had originally had a laceration from a knife a month ago and that in the past 24 to 48 hours the extreme redness and discoloration has become apparent. Patient states that updated tetanus vaccination at [facility]. BRIEF EXAM: Awake and Alert RRR SHEPPARD INTAKE WORKUP: Bloodwork: ESR CRP SIGNATURE: Negro Irby APRN.REGISTER REPAIRER Normal [facility] ESR Westergren method (Bld) [Velocity]on 10-04-2022 ESR (Bld) [Velocity] 46 mm/h High 0-20 [facility] Comment on above: Order Comment: Speci men Type: BLOOD SPECIMEN Ordering Facility: [facility] Address: [address] [place] [address] Performed By: #### 4 [id number] #### [facility] CLIA [id number] [address] [place] [address] [place] LABORATORYOrdered By: SYSTEM SYSTEM on 10-04-2022 Basophil, Absolute 0.1 103/mcL Invalid Interpretation Code 0.0 - 0.2 10^3/mcL AO Workflow SS Basophils/100 WBC (Bld) 0.4 % Invalid Interpretation Code 0.0 - 2.5 % AO Workflow SS Calcium [Mass/Vol] 9.5 mg/dL Invalid Interpretation Code 8.4 - 10.2 mg/dL AO ADM SS Chloride [Moles/Vol] 101 mmol/L Invalid Interpretation Code 98 - 107 mmol/L AO ADM SS CO2 [Moles/Vol] 32 mmol/L Invalid Interpretation Code 22 - 29 mmol/L AO ADM SS Creatinine [Mass/Vol] 0.85 mg/dL Invalid Interpretation Code 0.55 - 1.02 mg/dL AO ADM SS Electrolyte Balance 10.0 mEq/L Invalid Interpretation Code 4.0 - 15.0 mEq/L AO ADM SS Eosinophil, Absolute 0.4 103/mcL Invalid Interpretation Code 0.0 - 0.4 10^3/mcL AO Workflow SS Eosinophils/100 WBC (Bld) 2.2 % Invalid Interpretation Code 0.0 - 7.0 % AO Workflow SS Erythrocyte distribution width (RBC) [Ratio] 15.1 % Invalid Interpretation Code 11.5 - 14.5 % AO Workflow SS GFR/1.73 sq M.predicted among blacks MDRD (S/P/Bld) [Vol rate/Area] 84 ml/min/1.73sqm Invalid Interpretation Code AO Chemistry S GFR/1.73 sq M.predicted among non-blacks MDRD (S/P/Bld) [Vol rate/Area] 69 ml/min/1.73sqm Invalid Interpretation Code AO Chemistry S Glucose [Mass/Vol] 159 mg/dL Invalid Interpretation Code 70 - 105 mg/dL AO ADM SS Hematocrit (Bld) [Volume fraction] 43.9 % Invalid Interpretation Code 37.0 - 47.0 % AO Workflow SS Hemoglobin (Bld) [Mass/Vol] 14.3 G/dL Invalid Interpretation Code 12.0 - 16.0 G/dL AO Workflow SS Lymphocyte, Absolute 5.0 103/mcL Invalid Interpretation Code 0.8 - 3.9 10^3/mcL AO Workflow SS Lymphocytes/100 WBC (Bld) 29.9 % Invalid Interpretation Code 10.0 - 50.0 % AO Workflow SS MCH (RBC) [Entitic mass] 27.7 pg Invalid Interpretation Code 27.0 - 31.2 pg AO Workflow SS MCHC 32.6 G/dL Invalid Interpretation Code 33.0 - 37.0 G/dL AO Workflow SS MCV (RBC) [Entitic vol] 85.2 fL Invalid Interpretation Code 80.0 - 94.0 fL AO Workflow SS Monocyte distribution width Auto (Bld) [Entitic vol] 19.15 Invalid Interpretation Code 0.00 - 20.00 AO Workflow SS Comment on above: Result Comment: For ED adult patients suspected of sepsis, MDW<=20.0 does not rule out sepsis or risk of sepsis Monocyte, Absolute 0.9 103/mcL Invalid Interpretation Code 0.2 - 1.0 10^3/mcL AO Workflow SS Monocytes/100 WBC (Bld) 5.4 % Invalid Interpretation Code 1.7 - 13.0 % AO Workflow SS Neutrophil, Absolute 10.3 103/mcL Invalid Interpretation Code 2.9 - 6.2 10^3/mcL AO Workflow SS Neutrophils/100 WBC (Bld) 62.1 % Invalid Interpretation Code 37.0 - 80.0 % AO Workflow SS Platelet mean volume (Bld) [Entitic vol] 7.7 fL Invalid Interpretation Code 7.4 - 10.4 fL AO Workflow SS Platelets (Bld) [#/Vol] 302 103/mcL Invalid Interpretation Code 130 - 400 10^3/mcL AO Workflow SS Potassium [Moles/Vol] 5.3 mmol/L Invalid Interpretation Code 3.5 - 5.1 mmol/L AO ADM SS RBC (Bld) [#/Vol] 5.16 106/mcL Invalid Interpretation Code 4.20 - 5.40 10^6/mcL AO Workflow SS Sodium [Moles/Vol] 143 mmol/L Invalid Interpretation Code 136 - 145 mmol/L AO ADM SS Urea nitrogen [Mass/Vol] 15 mg/dL Invalid Interpretation Code 7 - 18 mg/dL AO ADM SS Urea nitrogen/Creatinine [Mass ratio] 18 ratio Invalid Interpretation Code 7 - 27 ratio AO ADM SS WBC (Bld) [#/Vol] 16.6 103/mcL Invalid Interpretation Code 4.6 - 10.8 10^3/mcL AO Workflow SS No Panel Informationon 10-04 GS No organisms seen. [facility] Work Phone: Microscopic examination of blood, culture Culture has been received in lab and is no growth to date. Routine cultures are held for 5 days. [facility] Work Phone: XR FINGER THUMB 3 VIEWS LEFT on 10-04-2022 XR FINGER THUMB 3 VIEWS LEFT ORIGINAL EXAMINATION: THREE XRAY VIEWS OF THE [...] 10/04/2022 2:33:24 PM Ordering Provider: ANTHONY PARIS [facility] ([place]) COVID-19 virus antigen assay Ordered By: Dr. Robles on 06-08-2022 SARS-CoV-2 (COVID-19) Ag IA.rapid Ql (Resp) [facility] Glucose Glucometer (BldC) [M ass/Vol]Ordered By: Dr. Kulkarni on 06-08-2022 Glucose [Mass/Vol] 255 mg/dL 74-106 [facility] Comment on above: MANAGEMENT OF PATIEN T CARE PER NURSING PROTOCOL Absolute lymphocyte countOrd ered By: Dr. López on 06-07-2022 Lymphocytes Auto (Unsp spec) [#/Vol] 3.48 10*3/uL 0.83-4.51 [facility] Basophil percentageOrdered B y: Dr. López on 06-07-2022 Basophils/100 WBC (Bld) 0.4 % 0-1 [facility] Chloride [Moles/Vol] 100 mmol/L 98-107 [facility] Eosinophils/100 WBC (Bld) 3.0 % 0-5 [facility] Glucose [Mass/Vol] 171 mg/dL 74-106 [facility] Comment on above: Fasting Glucose resu lt greater than or equal to 126 mg/dL suggests DIABETES MELLITUS per A.D.A. criteria. Neutrophils (Bld) [#/Vol] 3.8 10*3/uL 2.0-7.7 [facility] Neutrophils/100 WBC (Bld) 46.6 % 47-70 [facility] Potassium [Moles/Vol] 3.9 mmol/L 3.5-5.1 [facility] Sodium [Moles/Vol] 137 mmol/L 136-145 [facility] WBC (Bld) [#/Vol] 8.2 10*3/uL 4.4-11.0 [facility] Blood erythrocytes count (nu mber/volume)Ordered By: Dr. López on 06-07-2022 RBC (Bld) [#/Vol] 5.01 10*6/uL 4.2-5.4 [facility] Blood hemoglobin measurement (mass/volume)Ordered By: Dr. López on 06-07-2022 Hemoglobin (Bld) [Mass/Vol] 14.6 g/dL 12.0-15.0 [facility] Blood lymphocytes/100 leukoc ytesOrdered By: Dr. López on 06-07-2022 Lymphocytes/100 WBC (Bld) 42.3 % 19-41 [facility] Blood monocytes/100 leukocyt esOrdered By: Dr. López on 06-07-2022 Monocytes/100 WBC (Bld) 7.5 % 0-10 [facility] Blood platelet mean volumeOr dered By: Dr. López on 06-07-2022 Platelet mean volume (Bld) [Entitic vol] 10.4 fL 6.2-12.0 [facility] Determination of erythrocyte mean corpuscular volume (MCV)Ordered By: Dr. López on 06-07-2022 MCV (RBC) [Entitic vol] 89.6 fL 81-99 [facility] Hematocrit Auto (Bld) [Volum e fraction]Ordered By: Dr. López on 06-07-2022 Hematocrit (Bld) [Volume fraction] 44.9 % 37-47 [facility] Laboratory - Chemistry and C hemistry - challengeOrdered By: Dr. López on 06-07-2022 CO2 [Moles/Vol] 30.0 mmol/L 21.0-32.0 [facility] Urea nitrogen/Creatinine [Mass ratio] 38.7 mg/mg 10-20 [facility] Laboratory - Hematology and Cell countsOrdered By: Dr. López on 06-07-2022 Erythrocyte distribution width (RBC) [Entitic vol] 49.2 fL 35.1-43.9 [facility] Erythrocyte distribution width (RBC) [Ratio] 15.0 % 11.6-14.6 [facility] Immature granulocytes/100 WBC (Bld) 0.200 % 0.0-0.9 [facility] Comment on above: IG% - Immature Granu locytes (promyelocytes, myelocytes and metamyelocytes) > 1% indicates that a LEFT SHIFT is Present. MCH (RBC) [Entitic mass] 29.1 pg 27.0-32.0 [facility] Nucleated RBC/100 WBC (Bld) [Ratio] 0 % 0-5 [facility] MCHC Auto (RBC) [Mass/Vol]Or dered By: Dr. López on 06-07-2022 MCHC (RBC) [Mass/Vol] 32.5 g/dL 32-36 [facility] No Panel InformationOrdered By: Dr. López on 06-07-2022 Estimated Creatinine Clearance Calc 67.03 ml/min [facility] Estimated GFR (MDRD) Amer 103 mL/min >60 [facility] Comment on above: GFR Calc Estimated GFR (MDRD) Non-Af Amer 85 mL/min >60 [facility] Comment on above: Non- GFR Calc Platelets bldOrdered By: Dr. López on 06-07-2022 Platelets (Bld) [#/Vol] 200 10*3/uL 150-450 [facility] Serum or plasma calcium yesenia urement (mass/volume)Ordered By: Dr. López on 06-07-2022 Calcium [Mass/Vol] 9.7 mg/dL 8.5-10.1 [facility] Serum or plasma creatinine m easurement (mass/volume)Ordered By: Dr. López on 06-07-2022 Creatinine [Mass/Vol] 0.75 mg/dL 0.55-1.02 [facility] Comment on above: The validity of the calculated GFR & GFRAA in patients over 70 years has not been determined. Clinical correlation is essential. Serum or plasma urea nitroge n measurement (mass/volume)Ordered By: Dr. López on 06-07-2022 Urea nitrogen [Mass/Vol] 29 mg/dL 7-18 [facility] Thin prep Papanicolaou smear with manual screeningOrdered By: Dr. López on 06-07-2022 Thin prep Papanicolaou smear with manual screening 7 5-15 [facility] Basophil percentageOrdered B y: Dr. Kulkarni on 06-05-2022 Bilirubin [Mass/Vol] 0.30 mg/dL 0.20-1.00 [facility] Comment on above: For patients on eltr ombopag therapy, use of Dimension [place] TBIL is not recommended. Protein [Mass/Vol] 6.7 g/dL 6.4-8.2 [facility] Laboratory - Chemistry and C hemistry - challengeOrdered By: Dr. Kulkarni on 06-05-2022 ALP [Catalytic activity/Vol] 66 U/L 45-117 [facility] ALT [Catalytic activity/Vol] 44 U/L 13-56 [facility] Globulin (S) [Mass/Vol] 3.4 g/dL 2.2-4.2 [facility] Serum or plasma albumin yesenia urement (mass/volume)Ordered By: Dr. Kulkarni on 06-05-2022 Albumin [Mass/Vol] 3.3 g/dL 3.2-5.0 [facility] Serum or plasma albumin/glob ulin mass ratioOrdered By: Dr. Kulkarni on 06-05-2022 Albumin/Globulin [Mass ratio] 1.0 {ratio} 0.9-2.4 [facility] Thin prep Papanicolaou smear with manual screeningOrdered By: Dr. Kulkanri on 06-05-2022 Thin prep Papanicolaou smear with manual screening 29 U/L 15-37 [facility] Absolute lymphocyte countOrd ered By: Dr. Cortez on 05-21-2022 Lymphocytes Auto (Unsp spec) [#/Vol] 4.99 10*3/uL 0.83-4.51 [facility] Basophil percentageOrdered B y: Dr. Cortez on 05-21-2022 Basophils/100 WBC (Bld) 0.4 % 0-1 [facility] Bilirubin [Mass/Vol] 0.40 mg/dL 0.20-1.00 [facility] Comment on above: For patients on eltr ombopag therapy, use of Dimension [place] TBIL is not recommended. Chloride [Moles/Vol] 101 mmol/L 98-107 [facility] Eosinophils/100 WBC (Bld) 2.5 % 0-5 [facility] Glucose [Mass/Vol] 124 mg/dL 74-106 [facility] Comment on above: Fasting Glucose resu lt from 100 to 125 mg/dL suggests IMPAIRED HOMEOSTASIS per A.D.A. criteria. Neutrophils (Bld) [#/Vol] 5.0 10*3/uL 2.0-7.7 [facility] Neutrophils/100 WBC (Bld) 45.7 % 47-70 [facility] Potassium [Moles/Vol] 4.0 mmol/L 3.5-5.1 [facility] Comment on above: Slight Hemolysis, Re sult may be falsely increased. Protein [Mass/Vol] 7.8 g/dL 6.4-8.2 [facility] Sodium [Moles/Vol] 137 mmol/L 136-145 [facility] WBC (Bld) [#/Vol] 10.9 10*3/uL 4.4-11.0 [facility] Blood erythrocytes count (nu mber/volume)Ordered By: Dr. Cortez on 05-21-2022 RBC (Bld) [#/Vol] 5.07 10*6/uL 4.2-5.4 [facility] Blood hemoglobin measurement (mass/volume)Ordered By: Dr. Cortez on 05-21-2022 Hemoglobin (Bld) [Mass/Vol] 14.7 g/dL 12.0-15.0 [facility] Blood lymphocytes/100 leukoc ytesOrdered By: Dr. Cortez on 05-21-2022 Lymphocytes/100 WBC (Bld) 46.0 % 19-41 [facility] Blood monocytes/100 leukocyt esOrdered By: Dr. Cortez on 05-21-2022 Monocytes/100 WBC (Bld) 5.2 % 0-10 [facility] Blood platelet mean volumeOr dered By: Dr. Cortez on 05-21-2022 Platelet mean volume (Bld) [Entitic vol] 10.6 fL 6.2-12.0 [facility] Determination of erythrocyte mean corpuscular volume (MCV)Ordered By: Dr. Cortez on 05-21-2022 MCV (RBC) [Entitic vol] 90.1 fL 81-99 [facility] Hematocrit Auto (Bld) [Volum e fraction]Ordered By: Dr. Cortez on 05-21-2022 Hematocrit (Bld) [Volume fraction] 45.7 % 37-47 [facility] Laboratory - Chemistry and C hemistry - challengeOrdered By: Dr. Cortez on 05-21-2022 ALP [Catalytic activity/Vol] 82 U/L 45-117 [facility] ALT [Catalytic activity/Vol] 57 U/L 13-56 [facility] CO2 [Moles/Vol] 26.0 mmol/L 21.0-32.0 [facility] Globulin (S) [Mass/Vol] 4.0 g/dL 2.2-4.2 [facility] Urea nitrogen/Creatinine [Mass ratio] 27.4 mg/mg 10-20 [facility] Laboratory - Hematology and Cell countsOrdered By: Dr. Cortez on 05-21-2022 Erythrocyte distribution width (RBC) [Entitic vol] 52.1 fL 35.1-43.9 [facility] Erythrocyte distribution width (RBC) [Ratio] 15.9 % 11.6-14.6 [facility] Immature granulocytes/100 WBC (Bld) 0.200 % 0.0-0.9 [facility] Comment on above: IG% - Immature Granu locytes (promyelocytes, myelocytes and metamyelocytes) > 1% indicates that a LEFT SHIFT is Present. MCH (RBC) [Entitic mass] 29.0 pg 27.0-32.0 [facility] Nucleated RBC/100 WBC (Bld) [Ratio] 0 % 0-5 [facility] MCHC Auto (RBC) [Mass/Vol]Or dered By: Dr. Cortez on 05-21-2022 MCHC (RBC) [Mass/Vol] 32.2 g/dL 32-36 [facility] No Panel InformationOrdered By: Dr. Cortez on 05-21-2022 Estimated GFR (MDRD) Amer 75 mL/min >60 [facility] Comment on above: GFR Calc Estimated GFR (MDRD) Non-Af Amer 62 mL/min >60 [facility] Comment on above: Non- GFR Calc Platelets bldOrdered By: Dr. Cortez on 05-21-2022 Platelets (Bld) [#/Vol] 260 10*3/uL 150-450 [facility] Serum or plasma albumin yesenia urement (mass/volume)Ordered By: Dr. Cortez on 05-21-2022 Albumin [Mass/Vol] 3.8 g/dL 3.2-5.0 [facility] Serum or plasma albumin/glob ulin mass ratioOrdered By: Dr. Cortez on 05-21-2022 Albumin/Globulin [Mass ratio] 1.0 {ratio} 0.9-2.4 [facility] Serum or plasma calcium yesenia urement (mass/volume)Ordered By: Dr. Cortez on 05-21-2022 Calcium [Mass/Vol] 9.4 mg/dL 8.5-10.1 [facility] Serum or plasma creatinine m easurement (mass/volume)Ordered By: Dr. Cortez on 05-21-2022 Creatinine [Mass/Vol] 0.99 mg/dL 0.55-1.02 [facility] Comment on above: The validity of the calculated GFR & GFRAA in patients over 70 years has not been determined. Clinical correlation is essential. Serum or plasma urea nitroge n measurement (mass/volume)Ordered By: Dr. Cortez on 05-21-2022 Urea nitrogen [Mass/Vol] 27 mg/dL 7-18 [facility] Thin prep Papanicolaou smear with manual screeningOrdered By: Dr. Cortez on 05-21-2022 Thin prep Papanicolaou smear with manual screening 35 U/L 15-37 [facility] Comment on above: Slight Hemolysis, Re sult may be falsely increased. Thin prep Papanicolaou smear with manual screening 10 5-15 [facility] Basophil percentageOrdered B y: Dr. Martell on 04-28-2022 Chloride [Moles/Vol] 105 mmol/L 98-107 [facility] Glucose [Mass/Vol] 108 mg/dL 74-106 [facility] Comment on above: Fasting Glucose resu lt from 100 to 125 mg/dL suggests IMPAIRED HOMEOSTASIS per A.D.A. criteria. Potassium [Moles/Vol] 4.2 mmol/L 3.5-5.1 [facility] Sodium [Moles/Vol] 140 mmol/L 136-145 [facility] WBC (Bld) [#/Vol] 12.1 10*3/uL 4.4-11.0 [facility] Blood erythrocytes count (nu mber/volume)Ordered By: Dr. Martell on 04-28-2022 RBC (Bld) [#/Vol] 5.31 10*6/uL 4.2-5.4 [facility] Blood hemoglobin measurement (mass/volume)Ordered By: Dr. Martell on 04-28-2022 Hemoglobin (Bld) [Mass/Vol] 15.1 g/dL 12.0-15.0 [facility] Blood platelet mean volumeOr dered By: Dr. Martell on 04-28-2022 Platelet mean volume (Bld) [Entitic vol] 9.9 fL 6.2-12.0 [facility] Determination of erythrocyte mean corpuscular volume (MCV)Ordered By: Dr. Martell on 04-28-2022 MCV (RBC) [Entitic vol] 89.8 fL 81-99 [facility] Hematocrit Auto (Bld) [Volum e fraction]Ordered By: Dr. Martell on 04-28-2022 Hematocrit (Bld) [Volume fraction] 47.7 % 37-47 [facility] Laboratory - Chemistry and C hemistry - challengeOrdered By: Dr. Martell on 04-28-2022 CO2 [Moles/Vol] 29.0 mmol/L 21.0-32.0 [facility] Urea nitrogen/Creatinine [Mass ratio] 20.0 mg/mg 10-20 [facility] Laboratory - Hematology and Cell countsOrdered By: Dr. Martell on 04-28-2022 Erythrocyte distribution width (RBC) [Entitic vol] 55.0 fL 35.1-43.9 [facility] Erythrocyte distribution width (RBC) [Ratio] 16.9 % 11.6-14.6 [facility] MCH (RBC) [Entitic mass] 28.4 pg 27.0-32.0 [facility] MCHC Auto (RBC) [Mass/Vol]Or dered By: Dr. Martell on 04-28-2022 MCHC (RBC) [Mass/Vol] 31.7 g/dL 32-36 [facility] No Panel InformationOrdered By: Dr. Martell on 04-28-2022 Estimated Creatinine Clearance Calc 55.86 ml/min [facility] Estimated GFR (MDRD) Amer 84 mL/min >60 [facility] Comment on above: GFR Calc Estimated GFR (MDRD) Non-Af Amer 69 mL/min >60 [facility] Comment on above: Non- GFR Calc Platelets bldOrdered By: Dr. Martell on 04-28-2022 Platelets (Bld) [#/Vol] 261 10*3/uL 150-450 [facility] Serum or plasma calcium yesenia urement (mass/volume)Ordered By: Dr. Martell on 04-28-2022 Calcium [Mass/Vol] 9.5 mg/dL 8.5-10.1 [facility] Serum or plasma creatinine m easurement (mass/volume)Ordered By: Dr. Martell on 04-28-2022 Creatinine [Mass/Vol] 0.90 mg/dL 0.55-1.02 [facility] Comment on above: The validity of the calculated GFR & GFRAA in patients over 70 years has not been determined. Clinical correlation is essential. Serum or plasma urea nitroge n measurement (mass/volume)Ordered By: Dr. Martell on 04-28-2022 Urea nitrogen [Mass/Vol] 18 mg/dL 7-18 [facility] Thin prep Papanicolaou smear with manual screeningOrdered By: Dr. Martell on 04-28-2022 Thin prep Papanicolaou smear with manual screening 6 5-15 [facility] Absolute lymphocyte counton 11-24-2021 Lymphocytes Auto (Unsp spec) [#/Vol] 4.66 10*3/uL 0.83-4.51 [facility] Work Phone: Basophil percentageon 2021 Basophils/100 WBC (Bld) 0.3 % 0-1 [facility] Work Phone: Bilirubin [Mass/Vol] 0.20 mg/dL 0.20-1.00 [facility] Work Phone: Comment on above: For patients on eltr ombopag therapy, use of Dimension [place] TBIL is not recommended. Chloride [Moles/Vol] 101 mmol/L 98-107 [facility] Work Phone: Eosinophils/100 WBC (Bld) 2.3 % 0-5 [facility] Work Phone: Glucose [Mass/Vol] 135 mg/dL 74-106 [facility] Work Phone: Comment on above: Fasting Glucose resu lt greater than or equal to 126 mg/dL suggests DIABETES MELLITUS per A.D.A. criteria. Neutrophils (Bld) [#/Vol] 7.6 10*3/uL 2.0-7.7 [facility] Work Phone: Neutrophils/100 WBC (Bld) 57.0 % 47-70 [facility] Work Phone: Potassium [Moles/Vol] 3.9 mmol/L 3.5-5.1 [facility] Work Phone: Protein [Mass/Vol] 7.6 g/dL 6.4-8.2 [facility] Work Phone: Sodium [Moles/Vol] 138 mmol/L 136-145 [facility] Work Phone: WBC (Bld) [#/Vol] 13.3 10*3/uL 4.4-11.0 [facility] Work Phone: Blood erythrocytes count (nu mber/volume)on 11-24-2021 RBC (Bld) [#/Vol] 4.87 10*6/uL 4.2-5.4 [facility] Work Phone: Blood hemoglobin measurement (mass/volume)on 11-24-2021 Hemoglobin (Bld) [Mass/Vol] 14.4 g/dL 12.0-15.0 [facility] Work Phone: Blood lymphocytes/100 leukoc yteson 11-24-2021 Lymphocytes/100 WBC (Bld) 35.1 % 19-41 [facility] Work Phone: Blood monocytes/100 leukocyt eson 11-24-2021 Monocytes/100 WBC (Bld) 5.1 % 0-10 [facility] Work Phone: [phone] Blood platelet mean volumeon 11-24-2021 Platelet mean volume (Bld) [Entitic vol] 10.3 fL 6.2-12.0 [facility] Work Phone: [phone] Determination of erythrocyte mean corpuscular volume (MCV)on 11-24-2021 MCV (RBC) [Entitic vol] 89.9 fL 81-99 [facility] Work Phone: [phone] Hematocrit Auto (Bld) [Volum e fraction]on 11-24-2021 Hematocrit (Bld) [Volume fraction] 43.8 % 37-47 [facility] Work Phone: Laboratory - Chemistry and C hemistry - challengeon 11-24-2021 ALP [Catalytic activity/Vol] 95 U/L 45-117 [facility] Work Phone: [phone] ALT [Catalytic activity/Vol] 47 U/L 13-56 [facility] Work Phone: [phone] CO2 [Moles/Vol] 30.0 mmol/L 21.0-32.0 [facility] Work Phone: Globulin (S) [Mass/Vol] 4.3 g/dL 2.2-4.2 [facility] Work Phone: [phone] Urea nitrogen/Creatinine [Mass ratio] 22.8 mg/mg 10-20 [facility] Work Phone: [phone] Laboratory - Hematology and Cell countson 11-24-2021 Erythrocyte distribution width (RBC) [Entitic vol] 50.4 fL 35.1-43.9 [facility] Work Phone: [phone] Erythrocyte distribution width (RBC) [Ratio] 15.4 % 11.6-14.6 [facility] Work Phone: [phone] Immature granulocytes/100 WBC (Bld) 0.200 % 0.0-0.9 [facility] Work Phone: Comment on above: IG% - Immature Granu locytes (promyelocytes, myelocytes and metamyelocytes) > 1% indicates that a LEFT SHIFT is Present. MCH (RBC) [Entitic mass] 29.6 pg 27.0-32.0 [facility] Work Phone: Nucleated RBC/100 WBC (Bld) [Ratio] 0 % 0-5 [facility] Work Phone: [phone] MCHC Auto (RBC) [Mass/Vol]on 11-24-2021 MCHC (RBC) [Mass/Vol] 32.9 g/dL 32-36 [facility] Work Phone: No Panel Informationon 11-24 Estimated GFR (MDRD) Amer 91 mL/min >60 [facility] Work Phone: Comment on above: GFR Calc Estimated GFR (MDRD) Non-Af Amer 75 mL/min >60 [facility] Work Phone: Comment on above: Non- GFR Calc Platelets bldon 11-24-2021 Platelets (Bld) [#/Vol] 266 10*3/uL 150-450 [facility] Work Phone: Serum or plasma albumin yesenia urement (mass/volume)on 11-24-2021 Albumin [Mass/Vol] 3.3 g/dL 3.2-5.0 [facility] Work Phone: [phone] Serum or plasma albumin/glob ulin mass ratioon 11-24-2021 Albumin/Globulin [Mass ratio] 0.8 {ratio} 0.9-2.4 [facility] Work Phone: [phone] Serum or plasma calcium yesenia urement (mass/volume)on 11-24-2021 Calcium [Mass/Vol] 9.4 mg/dL 8.5-10.1 [facility] Work Phone: [phone] Serum or plasma creatinine m easurement (mass/volume)on 11-24-2021 Creatinine [Mass/Vol] 0.83 mg/dL 0.55-1.02 [facility] Work Phone: [phone] Comment on above: The validity of the calculated GFR & GFRAA in patients over 70 years has not been determined. Clinical correlation is essential. Serum or plasma urea nitroge n measurement (mass/volume)on 11-24-2021 Urea nitrogen [Mass/Vol] 19 mg/dL 7-18 [facility] Work Phone: Thin prep Papanicolaou smear with manual screeningon 11-24-2021 Thin prep Papanicolaou smear with manual screening 24 U/L 15-37 [facility] Work Phone: Thin prep Papanicolaou smear with manual screening 7 5-15 [facility] Work Phone: Absolute lymphocyte counton 11-10-2021 Lymphocytes Auto (Unsp spec) [#/Vol] 4.50 10*3/uL 0.83-4.51 [facility] Work Phone: Basophil percentageon 2021 Basophils/100 WBC (Bld) 0.3 % 0-1 [facility] Work Phone: Bilirubin [Mass/Vol] 0.40 mg/dL 0.20-1.00 [facility] Work Phone: Comment on above: For patients on eltr ombopag therapy, use of Dimension [place] TBIL is not recommended. Chloride [Moles/Vol] 101 mmol/L 98-107 [facility] Work Phone: Eosinophils/100 WBC (Bld) 2.3 % 0-5 [facility] Work Phone: Glucose [Mass/Vol] 97 mg/dL 74-106 [facility] Work Phone: Neutrophils (Bld) [#/Vol] 7.8 10*3/uL 2.0-7.7 [facility] Work Phone: Neutrophils/100 WBC (Bld) 57.6 % 47-70 [facility] Work Phone: Potassium [Moles/Vol] 4.1 mmol/L 3.5-5.1 [facility] Work Phone: Protein [Mass/Vol] 7.7 g/dL 6.4-8.2 [facility] Work Phone: [phone] Sodium [Moles/Vol] 137 mmol/L 136-145 [facility] Work Phone: [phone] WBC (Bld) [#/Vol] 13.6 10*3/uL 4.4-11.0 [facility] Work Phone: [phone] Blood erythrocytes count (nu mber/volume)on 11-10-2021 RBC (Bld) [#/Vol] 4.86 10*6/uL 4.2-5.4 [facility] Work Phone: Blood hemoglobin measurement (mass/volume)on 11-10-2021 Hemoglobin (Bld) [Mass/Vol] 14.2 g/dL 12.0-15.0 [facility] Work Phone: [phone] Blood lymphocytes/100 leukoc yteson 11-10-2021 Lymphocytes/100 WBC (Bld) 33.1 % 19-41 [facility] Work Phone: [phone] Blood monocytes/100 leukocyt eson 11-10-2021 Monocytes/100 WBC (Bld) 6.5 % 0-10 [facility] Work Phone: [phone] Blood platelet mean volumeon 11-10-2021 Platelet mean volume (Bld) [Entitic vol] 10.1 fL 6.2-12.0 [facility] Work Phone: Determination of erythrocyte mean corpuscular volume (MCV)on 11-10-2021 MCV (RBC) [Entitic vol] 89.5 fL 81-99 [facility] Work Phone: Hematocrit Auto (Bld) [Volum e fraction]on 11-10-2021 Hematocrit (Bld) [Volume fraction] 43.5 % 37-47 [facility] Work Phone: Laboratory - Chemistry and C hemistry - challengeon 11-10-2021 ALP [Catalytic activity/Vol] 88 U/L 45-117 [facility] Work Phone: [phone] ALT [Catalytic activity/Vol] 50 U/L 13-56 [facility] Work Phone: [phone] CO2 [Moles/Vol] 31.0 mmol/L 21.0-32.0 [facility] Work Phone: [phone] Globulin (S) [Mass/Vol] 4.2 g/dL 2.2-4.2 [facility] Work Phone: [phone] Urea nitrogen/Creatinine [Mass ratio] 20.8 mg/mg 10-20 [facility] Work Phone: Laboratory - Hematology and Cell countson 11-10-2021 Erythrocyte distribution width (RBC) [Entitic vol] 50.5 fL 35.1-43.9 [facility] Work Phone: [phone] Erythrocyte distribution width (RBC) [Ratio] 15.6 % 11.6-14.6 [facility] Work Phone: [phone] Immature granulocytes/100 WBC (Bld) 0.200 % 0.0-0.9 [facility] Work Phone: [phone] Comment on above: IG% - Immature Granu locytes (promyelocytes, myelocytes and metamyelocytes) > 1% indicates that a LEFT SHIFT is Present. MCH (RBC) [Entitic mass] 29.2 pg 27.0-32.0 [facility] Work Phone: Nucleated RBC/100 WBC (Bld) [Ratio] 0 % 0-5 [facility] Work Phone: [phone] MCHC Auto (RBC) [Mass/Vol]on 11-10-2021 MCHC (RBC) [Mass/Vol] 32.6 g/dL 32-36 [facility] Work Phone: No Panel Informationon 11-10 Estimated GFR (MDRD) Amer 57 mL/min >60 [facility] Work Phone: Comment on above: GFR Calc Estimated GFR (MDRD) Non-Af Amer 47 mL/min >60 [facility] Work Phone: [phone] Comment on above: Non- GFR Calc Methicillin-Resist S.aureus DNA PCR Negative Negative [facility] Work Phone: Platelets bldon 11-10-2021 Platelets (Bld) [#/Vol] 271 10*3/uL 150-450 [facility] Work Phone: [phone] Serum or plasma albumin yesenia urement (mass/volume)on 11-10-2021 Albumin [Mass/Vol] 3.5 g/dL 3.2-5.0 [facility] Work Phone: [phone] Serum or plasma albumin/glob ulin mass ratioon 11-10-2021 Albumin/Globulin [Mass ratio] 0.8 {ratio} 0.9-2.4 [facility] Work Phone: [phone] Serum or plasma calcium yesenia urement (mass/volume)on 11-10-2021 Calcium [Mass/Vol] 9.4 mg/dL 8.5-10.1 [facility] Work Phone: [phone] Serum or plasma creatinine m easurement (mass/volume)on 11-10-2021 Creatinine [Mass/Vol] 1.25 mg/dL 0.55-1.02 [facility] Work Phone: Comment on above: The validity of the calculated GFR & GFRAA in patients over 70 years has not been determined. Clinical correlation is essential. Serum or plasma urea nitroge n measurement (mass/volume)on 11-10-2021 Urea nitrogen [Mass/Vol] 26 mg/dL 7-18 [facility] Work Phone: [phone] Staphylococcus aureus DNA de tection by probe and target amplification methodon 11-10-2021 S. aureus DNA YADI+probe Ql (Unsp spec) Positive Negative [facility] Work Phone: [phone] Thin prep Papanicolaou smear with manual screeningon 11-10-2021 Thin prep Papanicolaou smear with manual screening 29 U/L 15-37 [facility] Work Phone: [phone] Thin prep Papanicolaou smear with manual screening 5 5-15 [facility] Work Phone: LABORATORYOrdered By: bAigail Agarwal on 10-31-2021 Albumin BCP dye [Mass/Vol] 3.8 G/dL Invalid Interpretation Code 3.5 - 5.0 G/dL AO ADM SS Albumin/Globulin [Mass ratio] 1.1 {ratio} Invalid Interpretation Code 1.1 - 2.5 ratio AO ADM SS ALP [Catalytic activity/Vol] 108 U/L Invalid Interpretation Code 40 - 135 U/L AO ADM SS ALT With P-5'-P [Catalytic activity/Vol] 39 U/L Invalid Interpretation Code 14 - 59 U/L AO ADM SS Appearance (U) Clear (10/31/21 1:10 PM) Invalid Interpretation Code Clear AO Auto Urine SS AST With P-5'-P [Catalytic activity/Vol] 26 U/L Invalid Interpretation Code 10 - 40 U/L AO ADM SS Bacteria LM.HPF (Urine sed) [#/Area] 1 /[HPF] Invalid Interpretation Code AO Auto Urine SS Basophil, Absolute 0.1 103/mcL Invalid Interpretation Code 0.0 - 0.2 10^3/mcL AO Workflow SS Basophils/100 WBC (Bld) 0.8 % Invalid Interpretation Code 0.0 - 2.5 % AO Workflow SS Bilirubin [Mass/Vol] 0.3 mg/dL Invalid Interpretation Code 0.2 - 1.0 mg/dL AO ADM SS Bilirubin Ql (U) Negative (10/31/21 1:10 PM) Invalid Interpretation Code Negative AO Auto Urine SS Calcium [Mass/Vol] 8.7 mg/dL Invalid Interpretation Code 8.4 - 10.2 mg/dL AO ADM SS Chloride [Moles/Vol] 99 mmol/L Invalid Interpretation Code 98 - 107 mmol/L AO ADM SS CO2 [Moles/Vol] 26 mmol/L Invalid Interpretation Code 22 - 29 mmol/L AO ADM SS Color (U) Yellow (10/31/21 1:10 PM) Invalid Interpretation Code AO Auto Urine SS Creatinine [Mass/Vol] 1.14 mg/dL Invalid Interpretation Code 0.55 - 1.02 mg/dL AO ADM SS Electrolyte Balance 12.0 mEq/L Invalid Interpretation Code 4.0 - 15.0 mEq/L AO ADM SS Eosinophil, Absolute 0.4 103/mcL Invalid Interpretation Code 0.0 - 0.4 10^3/mcL AO Workflow SS Eosinophils/100 WBC (Bld) 3.1 % Invalid Interpretation Code 0.0 - 7.0 % AO Workflow SS Erythrocyte distribution width (RBC) [Ratio] 15.6 % Invalid Interpretation Code 11.5 - 14.5 % AO Workflow SS Globulin 3.4 G/dL Invalid Interpretation Code AO ADM SS Glucose [Mass/Vol] 158 mg/dL Invalid Interpretation Code 70 - 105 mg/dL AO ADM SS Glucose Test strip (U) [Mass/Vol] 100 mg/dL Invalid Interpretation Code Negativemg/ dL AO Auto Urine SS Hematocrit (Bld) [Volume fraction] 42.1 % Invalid Interpretation Code 37.0 - 47.0 % AO Workflow SS Hemoglobin (Bld) [Mass/Vol] 14.1 G/dL Invalid Interpretation Code 12.0 - 16.0 G/dL AO Workflow SS Hemoglobin Auto test strip (U) [Mass/Vol] Negative (10/31/21 1:10 PM) Invalid Interpretation Code Negative AO Auto Urine SS Ketones Ql (U) Trace mg/dL Invalid Interpretation Code Negativemg/ dL AO Auto Urine SS Lipase [Catalytic activity/Vol] 89 U/L Invalid Interpretation Code 73 - 393 U/L AO ADM SS Lymphocyte, Absolute 3.7 103/mcL Invalid Interpretation Code 0.8 - 3.9 10^3/mcL AO Workflow SS Lymphocytes/100 WBC (Bld) 30.9 % Invalid Interpretation Code 10.0 - 50.0 % AO Workflow SS MCH (RBC) [Entitic mass] 29.2 pg Invalid Interpretation Code 27.0 - 31.2 pg AO Workflow SS MCHC 33.5 G/dL Invalid Interpretation Code 33.0 - 37.0 G/dL AO Workflow SS MCV (RBC) [Entitic vol] 87.1 fL Invalid Interpretation Code 80.0 - 94.0 fL AO Workflow SS Monocyte distribution width Auto (Bld) [Entitic vol] 20.41 Invalid Interpretation Code 0.00 - 20.00 AO Workflow SS Comment on above: Result Comment: For adults in ED, MDW>20.0 may be associated with a higher risk of sepsis during the first 12hrs of hospital admission Monocyte, Absolute 0.7 103/mcL Invalid Interpretation Code 0.2 - 1.0 10^3/mcL AO Workflow SS Monocytes/100 WBC (Bld) 5.5 % Invalid Interpretation Code 1.7 - 13.0 % AO Workflow SS Neutrophil, Absolute 7.2 103/mcL Invalid Interpretation Code 2.9 - 6.2 10^3/mcL AO Workflow SS Neutrophils/100 WBC (Bld) 59.7 % Invalid Interpretation Code 37.0 - 80.0 % AO Workflow SS Platelet mean volume (Bld) [Entitic vol] 8.3 fL Invalid Interpretation Code 7.4 - 10.4 fL AO Workflow SS Platelets (Bld) [#/Vol] 212 103/mcL Invalid Interpretation Code 130 - 400 10^3/mcL AO Workflow SS Potassium [Moles/Vol] 4.4 mmol/L Invalid Interpretation Code 3.5 - 5.1 mmol/L AO ADM SS Protein [Mass/Vol] 7.2 G/dL Invalid Interpretation Code 6.4 - 8.2 G/dL AO ADM SS RBC (Bld) [#/Vol] 4.84 106/mcL Invalid Interpretation Code 4.20 - 5.40 10^6/mcL AO Workflow SS Sodium [Moles/Vol] 137 mmol/L Invalid Interpretation Code 136 - 145 mmol/L AO ADM SS UA Leuk Est Small *ABN* (10/31/21 1:10 PM) Invalid Interpretation Code Negative AO Auto Urine SS UA Nitrite Negative (10/31/21 1:10 PM) Invalid Interpretation Code Negative AO Auto Urine SS UA pH 5.0 (10/31/21 1:10 PM) Invalid Interpretation Code 5.0 - 8.0 AO Auto Urine SS UA Protein Negative Invalid Interpretation Code Negativemg/ dL AO Auto Urine SS UA RBC 0-5 /HPF Invalid Interpretation Code None Seen/HPF AO Auto Urine SS UA Spec Grav >=1.030 *ABN* (10/31/21 1:10 PM) Invalid Interpretation Code 1.015-1.025 AO Auto Urine SS UA Specimen Type Clean Catch (10/31/21 1:10 PM) Invalid Interpretation Code AO Auto Urine SS UA Squam Epithelial 15-25 /HPF Invalid Interpretation Code None Seen/HPF AO Auto Urine SS UA Urobilinogen 0.2 E.U./dL Invalid Interpretation Code 0.2-1.0E.U. /dL AO Auto Urine SS Urea nitrogen [Mass/Vol] 25 mg/dL Invalid Interpretation Code 7 - 18 mg/dL AO ADM SS Urea nitrogen/Creatinine [Mass ratio] 22 ratio Invalid Interpretation Code 7 - 27 ratio AO ADM SS WBC 12.1 103/mcL Invalid Interpretation Code 4.6 - 10.8 10^3/mcL AO Workflow SS WBC LM.HPF (Urine sed) [#/Area] 10-15 /HPF Invalid Interpretation Code None Seen/HPF AO Auto Urine SS LABORATORYOrdered By: SYSTEM SYSTEM on 10-31-2021 GFR 60 ml/min/1.73sqm Invalid Interpretation Code AO Chemistry S GFR Non- 49 ml/min/1.73sqm Inval id Interpretation Code AO Chemistry S Bacteria identified Anaer cx Nom (Unsp spec)on 07-15-2021 Anaerobic Culture Anaerobic cocci [facility] Work Phone: Bacteria identified Cx Nom ( Wound)on 07-15-2021 Wound Culture Enterococcus faecalis [facility] Work Phone: Wound Culture Staphylococcus epidermidis [facility] Work Phone: Gram stain for investigation of transfusion reactionon 07-15-2021 Microscopic observation Gram stain Nom (Unsp spec) [facility] Work Phone: LABORATORYOrdered By: Marie Corbett on 07-04-2021 Calcium [Mass/Vol] 9.3 mg/dL Invalid Interpretation Code 8.4 - 10.2 mg/dL AO ADM SS Chloride [Moles/Vol] 101 mmol/L Invalid Interpretation Code 98 - 107 mmol/L AO ADM SS CO2 [Moles/Vol] 30 mmol/L Invalid Interpretation Code 22 - 29 mmol/L AO ADM SS Creatinine [Mass/Vol] 0.94 mg/dL Invalid Interpretation Code 0.55 - 1.02 mg/dL AO ADM SS Electrolyte Balance 9.0 mEq/L Invalid Interpretation Code 4.0 - 15.0 mEq/L AO ADM SS Glucose [Mass/Vol] 138 mg/dL Invalid Interpretation Code 70 - 105 mg/dL AO ADM SS Potassium [Moles/Vol] 4.9 mmol/L Invalid Interpretation Code 3.5 - 5.1 mmol/L AO ADM SS Sodium [Moles/Vol] 140 mmol/L Invalid Interpretation Code 136 - 145 mmol/L AO ADM SS Urea nitrogen [Mass/Vol] 22 mg/dL Invalid Interpretation Code 7 - 18 mg/dL AO ADM SS Urea nitrogen/Creatinine [Mass ratio] 23 ratio Invalid Interpretation Code 7 - 27 ratio AO ADM SS LABORATORYOrdered By: SYSTEM SYSTEM on 07-04-2021 GFR 75 ml/min/1.73sqm Invalid Interpretation Code AO Chemistry S GFR Non- 62 ml/min/1.73sqm Inval id Interpretation Code AO Chemistry S LABORATORYOrdered By: James Renner on 04-01-2021 Albumin DL <= 20 mg/L (U) [Mass/Vol] 417 mcg/dL Invalid Interpretation Code AO ADM SS Albumin/Creatinine DL <= 20 mg/L (U) [Mass ratio] 9 mcg/mg Invalid Interpretation Code 0 - 30 mcg/mg AO ADM SS Creatinine (U) [Mass/Vol] 44.0 mg/dL Invalid Interpretation Code 28.0 - 117.0 mg/dL AO ADM SS LABORATORYOrdered By: Marie Corbett on 04-01-2021 Albumin BCP dye [Mass/Vol] 3.7 G/dL Invalid Interpretation Code 3.5 - 5.0 G/dL AO ADM SS Albumin/Globulin [Mass ratio] 0.9 {ratio} Invalid Interpretation Code 1.1 - 2.5 ratio AO ADM SS ALP [Catalytic activity/Vol] 105 U/L Invalid Interpretation Code 40 - 135 U/L AO ADM SS ALT With P-5'-P [Catalytic activity/Vol] 53 U/L Invalid Interpretation Code 14 - 59 U/L AO ADM SS AST With P-5'-P [Catalytic activity/Vol] 41 U/L Invalid Interpretation Code 10 - 40 U/L AO ADM SS Bilirubin [Mass/Vol] 0.3 mg/dL Invalid Interpretation Code 0.2 - 1.0 mg/dL AO ADM SS Calcium [Mass/Vol] 10.0 mg/dL Invalid Interpretation Code 8.4 - 10.2 mg/dL AO ADM SS Chloride [Moles/Vol] 97 mmol/L Invalid Interpretation Code 98 - 107 mmol/L AO ADM SS Cholesterol [Mass/Vol] 194 mg/dL Invalid Interpretation Code 0 - 200 mg/dL AO ADM SS Cholesterol in HDL [Mass/Vol] 32 mg/dL Invalid Interpretation Code 40 - 60 mg/dL AO ADM SS CO2 [Moles/Vol] 30 mmol/L Invalid Interpretation Code 22 - 29 mmol/L AO ADM SS Creatinine [Mass/Vol] 0.71 mg/dL Invalid Interpretation Code 0.55 - 1.02 mg/dL AO ADM SS Electrolyte Balance 11.0 mEq/L Invalid Interpretation Code AO ADM SS Globulin 4.0 G/dL Invalid Interpretation Code AO ADM SS Glucose [Mass/Vol] 175 mg/dL Invalid Interpretation Code 70 - 105 mg/dL AO ADM SS HbA1c (Bld) [Mass fraction] 7.7 % Invalid Interpretation Code 4.3 - 6.4 % AO ADM SS LDL Cholesterol Not Valid Invalid Interpretation Code 0 - 130 AO ADM SS Comment on above: Result Comment: Trig lyceride >400 invalidates the calculated LDL. Potassium [Moles/Vol] 5.2 mmol/L Invalid Interpretation Code 3.5 - 5.1 mmol/L AO ADM SS Protein [Mass/Vol] 7.7 G/dL Invalid Interpretation Code 6.4 - 8.2 G/dL AO ADM SS Sodium [Moles/Vol] 138 mmol/L Invalid Interpretation Code 136 - 145 mmol/L AO ADM SS Triglyceride [Mass/Vol] 582 mg/dL Invalid Interpretation Code 0 - 150 mg/dL AO ADM SS Urea nitrogen [Mass/Vol] 17 mg/dL Invalid Interpretation Code 7 - 18 mg/dL AO ADM SS Urea nitrogen/Creatinine [Mass ratio] 24 ratio Invalid Interpretation Code 7 - 27 ratio AO ADM SS Vit. D 25-Hydroxy 32.1 ng/mL Invalid Interpretation Code AO ADM SS LABORATORYOrdered By: SYSTEM SYSTEM on 04-01-2021 GFR 104 ml/min/1.73sqm Invalid Interpretation Code AO Chemistry S GFR Non- 86 ml/min/1.73sqm Inval id Interpretation Code AO Chemistry S Office Visit: GHANSHYAM & respirat ory failureon 12-14-2016 Documentation of current medications (procedure) Done Invalid Interpretation Code [facility] Work Phone: Fall risk assessment No Invalid Interpretation Code [facility] Work Phone: Smoking cessation education (procedure) yes Invalid Interpretation Code [facility] Work Phone: Tobacco smoking status NHIS Never Invalid Interpretation Code [facility] Work Phone: Tobacco use HS Current every day smoker Invalid Interpretation Code [facility] Work Phone: Rx Refill: eRx Request for B REO ELLIPTA 200-25 MCG/INH INH AEPBon 06-03-2016 [id number]`BR EO ELLIPTA 200-25 MCG/INH INH AEPB`200-25``1 Inhaler``1 puff daily```0`01/29/2016`1 `[facility]*`[id number] `[id number]``BREO ELLIPTA 200-25 INH Quantity: 60 Each Instructions: INHALE 1 PUFF DAILY [facility] Phone: Office Visit: New Patient Co nsultation- Personal h/o VTEon 04-26-2016 Breast Mammogram screening Normal Bilateral Invalid Interpretation Code [facility] Phone: Office Visit: New Patient Co nsultation- Personal h/o VTEon 02-16-2016 General categories [Interpretation] of Cervical or vaginal smear or scraping by Cyto stain Normal Invalid Interpretation Code [facility] Phone: Office Visit: OSAon 01-13-20 16 cholesterol, target level 200 mg/dL Invalid Interpretation Code [facility] Phone: General cardiovascular disease 10Y risk [#] Wilmer.D'Agomary Not enough information Invalid Interpretation Code [facility] Phone: HDL cholesterol, serum, target level 40 mg/dL Invalid Interpretation Code [facility] Phone: LDL target level 130 mg/dL Invalid Interpretation Code [facility] Phone: triglyceride, target level 150 mg/dL Invalid Interpretation Code [facility] Phone: Microbiology: Culture, Sputu mon 01-25-2015 Bacteria sputum culture or Staphylococcu s aureus isolated. Invalid Interpretation Code [facility] Phone: Anaerobic culture Bacteria identified Anaer cx Nom (Unsp spec) No anaerobic bacteria isolated. [facility] Work Phone: Bacteria identified Anaer cx Nom (Unsp spec) Anaerobic microbial culture No anaerobic bacteria isolated. [facility] Work Phone: Bacteria identified Cx Nom ( Wound) Wound Culture Staphylococcus aureus [facility] Work Phone: Wound Culture Staphylococcus cohni i urealyti [facility] Work Phone: Gram stain for investigation of transfusion reaction Microscopic observation Gram stain Nom (Unsp spec) [facility] Work Phone: Vital Signs Date Time Vital Sign Value Performing Clinician Facility 10-02-2024 08:43-0400 Body temperature 98.6 [degF] Dr. Pk Sloan DO Work Phone: [facility] 10-02-2024 08:43-0400 Body weight 119.[address] Pk Sloan DO Work Phone: [facility] 10-02-2024 08:43-0400 Diastolic blood pressure 69 mm[Hg] Dr. Pk Sloan DO Work Phone: [facility] 10-02-2024 08:43-0400 Heart rate 66 /min Dr. Pk Sloan DO Work Phone: [facility] 10-02-2024 08:43-0400 Respiratory rate 16 /min Dr. Pk Sloan DO Work Phone: [facility] 10-02-2024 08:43-0400 SaO2% (BldA) [Mass fraction] 94 % Dr. Pk Sloan DO Work Phone: [facility] 10-02-2024 08:43-0400 Systolic blood pressure 146 mm[Hg] Dr. Pk Sloan DO Work Phone: [facility] 07-22-2024 01:30-0400 Body temperature 98.8 [degF] Dr. Pk Sloan DO Work Phone: [facility] 07-22-2024 01:30-0400 Diastolic blood pressure 54 mm[Hg] Dr. Pk Sloan DO Work Phone: [facility] 07-22-2024 01:30-0400 Heart rate 76 /min Dr. Pk Sloan DO Work Phone: [facility] 07-22-2024 01:30-0400 Respiratory rate 29 /min Dr. Pk Sloan DO Work Phone: [facility] 07-22-2024 01:30-0400 SaO2% (BldA) [Mass fraction] 94 % Dr. Pk Sloan DO Work Phone: [facility] 07-22-2024 01:30-0400 Systolic blood pressure 122 mm[Hg] Dr. Pk Sloan DO Work Phone: [facility] 07-22-2024 00:00-0400 Inhaled oxygen flow rate 2 L/min Dr. Pk Sloan DO Work Phone: [facility] 07-21-2024 22:26-0400 Body height 157.[address] Pk Sloan DO Work Phone: [facility] 07-21-2024 22:26-0400 Body mass index (BMI) [Ratio] 49.8 kg/m2 Dr. Pk Sloan DO Work Phone: [facility] 07-21-2024 22:26-0400 Body weight 123.[address] Pk Sloan DO Work Phone: [facility] 07-05-2024 07:50-0400 Body mass index (BMI) [Ratio] 48.1 kg/m2 Dr. Pk Sloan DO Work Phone: [facility] 07-05-2024 07:50-0400 Body temperature 97.8 [degF] Dr. Pk Sloan DO Work Phone: [facility] 07-05-2024 07:50-0400 Body weight 119.[address] Pk Sloan DO Work Phone: [facility] 07-05-2024 07:50-0400 Diastolic blood pressure 89 mm[Hg] Dr. Pk Sloan DO Work Phone: [facility] 07-05-2024 07:50-0400 Heart rate 78 /min Dr. Pk Sloan DO Work Phone: [facility] 07-05-2024 07:50-0400 Respiratory rate 20 /min Dr. Pk Sloan DO Work Phone: [facility] 07-05-2024 07:50-0400 SaO2% (BldA) [Mass fraction] 93 % Dr. Pk Sloan DO Work Phone: [facility] 07-05-2024 07:50-0400 Systolic blood pressure 136 mm[Hg] Dr. Pk Sloan DO Work Phone: [facility] 07-03-2024 15:51-0400 Body mass index (BMI) [Ratio] 48.1 kg/m2 Dr. Pk Sloan DO Work Phone: [facility] 07-03-2024 15:51-0400 Body weight 119.[address] Pk Sloan DO Work Phone: [facility] 07-03-2024 15:51-0400 Diastolic blood pressure 74 mm[Hg] Dr. Pk Sloan DO Work Phone: [facility] 07-03-2024 15:51-0400 Heart rate 63 /min Dr. Pk Sloan DO Work Phone: [facility] 07-03-2024 15:51-0400 Respiratory rate 18 /min Dr. Pk Sloan DO Work Phone: [facility] 07-03-2024 15:51-0400 Systolic blood pressure 134 mm[Hg] Dr. Pk Sloan DO Work Phone: [facility] 05-28-2024 09:33-0500 Body height 157.[address] Pk Sloan DO Work Phone: [facility] 05-28-2024 09:33-0500 Body temperature 97.5 [degF] Dr. Pk Sloan DO Work Phone: [facility] 05-28-2024 09:33-0500 Diastolic blood pressure 96 mm[Hg] Dr. Pk Sloan DO Work Phone: [facility] 05-28-2024 09:33-0500 Heart rate 70 /min Dr. Pk Sloan DO Work Phone: [facility] 05-28-2024 09:33-0500 Respiratory rate 18 /min Dr. Pk Sloan DO Work Phone: [facility] 05-28-2024 09:33-0500 Systolic blood pressure 137 mm[Hg] Dr. Pk Sloan DO Work Phone: [facility] 05-24-2024 09:05-0500 Body temperature 98 [degF] Dr. Pk Sloan DO Work Phone: [facility] 05-24-2024 09:05-0500 Body weight 117.[address] Pk Sloan DO Work Phone: [facility] 05-24-2024 09:05-0500 Diastolic blood pressure 60 mm[Hg] Dr. Pk Sloan DO Work Phone: [facility] 05-24-2024 09:05-0500 Heart rate 65 /min Dr. Pk Sloan DO Work Phone: [facility] 05-24-2024 09:05-0500 Respiratory rate 16 /min Dr. Pk Sloan DO Work Phone: [facility] 05-24-2024 09:05-0500 SaO2% (BldA) [Mass fraction] 97 % Dr. Pk Sloan DO Work Phone: [facility] 05-24-2024 09:05-0500 Systolic blood pressure 135 mm[Hg] Dr. Pk Sloan DO Work Phone: [facility] 05-09-2024 11:26-0500 Body mass index (BMI) [Ratio] 46.7 kg/m2 Dr. Pk Sloan DO Work Phone: [facility] 05-09-2024 11:26-0500 Body temperature 97.4 [degF] Dr. Pk Sloan DO Work Phone: [facility] 05-09-2024 11:26-0500 Body weight 116.[address] Pk Sloan DO Work Phone: [facility] 05-09-2024 11:26-0500 Diastolic blood pressure 53 mm[Hg] Dr. Pk Sloan DO Work Phone: [facility] 05-09-2024 11:26-0500 Heart rate 65 /min Dr. Pk Sloan DO Work Phone: [facility] 05-09-2024 11:26-0500 Respiratory rate 20 /min Dr. Pk Sloan DO Work Phone: [facility] 05-09-2024 11:26-0500 SaO2% (BldA) [Mass fraction] 93 % Dr. Pk Sloan DO Work Phone: [facility] 05-09-2024 11:26-0500 Systolic blood pressure 138 mm[Hg] Dr. Pk Sloan DO Work Phone: [facility] 05-07-2024 16:12-0500 Body temperature 98.5 [degF] Dr. Pk Sloan DO Work Phone: [facility] 05-07-2024 16:12-0500 Diastolic blood pressure 50 mm[Hg] Dr. Pk Sloan DO Work Phone: [facility] 05-07-2024 16:12-0500 Heart rate 60 /min Dr. Pk Sloan DO Work Phone: [facility] 05-07-2024 16:12-0500 Respiratory rate 16 /min Dr. Pk Sloan DO Work Phone: [facility] 05-07-2024 16:12-0500 SaO2% (BldA) [Mass fraction] 94 % Dr. Pk Sloan DO Work Phone: [facility] 05-07-2024 16:12-0500 Systolic blood pressure 121 mm[Hg] Dr. Pk Sloan DO Work Phone: [facility] 05-07-2024 13:09-0500 Body mass index (BMI) [Ratio] 47 kg/m2 Dr. Pk Sloan DO Work Phone: [facility] 05-07-2024 13:09-0500 Body weight 116.[address] Pk Sloan DO Work Phone: [facility] 03-02-2024 10:43-0500 Body mass index (BMI) [Ratio] 48.4 kg/m2 Albina Jett PA-C Work Phone: [facility] 03-02-2024 10:43-0500 Body temperature 97 [degF] Albina Jett PA-C Work Phone: [facility] 03-02-2024 10:43-0500 Body weight 116.2 kg Albina Jett PA-C Work Phone: [facility] 03-02-2024 10:43-0500 Diastolic blood pressure 63 mm[Hg] Albina Jett PA-C Work Phone: [facility] 03-02-2024 10:43-0500 Heart rate 72 /min Albina Jett PA-C Work Phone: [facility] 03-02-2024 10:43-0500 Respiratory rate 20 /min Albina Jett PA-C Work Phone: [facility] 03-02-2024 10:43-0500 Systolic blood pressure 158 mm[Hg] Albina Jett PA-C Work Phone: [facility] 02-24-2024 11:22-0500 Body mass index (BMI) [Ratio] 47.99 kg/m2 Albina Jett PA-C Work Phone: [facility] 02-24-2024 11:22-0500 Body temperature 96.91 [degF] Albina Jett PA-C Work Phone: [facility] 02-24-2024 11:22-0500 Body weight 115.2 kg Albina Jett PA-C Work Phone: [facility] 02-24-2024 11:22-0500 Diastolic blood pressure 75 mm[Hg] Albina Jett PA-C Work Phone: [facility] 02-24-2024 11:22-0500 Heart rate 56 /min Albina Jett PA-C Work Phone: [facility] 02-24-2024 11:22-0500 Systolic blood pressure 179 mm[Hg] Albina Jett PA-C Work Phone: [facility] 02-17-2024 09:17-0500 Body mass index (BMI) [Ratio] 48.95 kg/m2 Albina Jett PA-C Work Phone: [facility] 02-17-2024 09:17-0500 Body temperature 97 [degF] Albina Jett PA-C Work Phone: [facility] 02-17-2024 09:17-0500 Body weight 117.5 kg Albina Jett PA-C Work Phone: [facility] 02-17-2024 09:17-0500 Diastolic blood pressure 64 mm[Hg] Albina Jett PA-C Work Phone: [facility] 02-17-2024 09:17-0500 Heart rate 60 /min Albina Jett PA-C Work Phone: [facility] 02-17-2024 09:17-0500 Systolic blood pressure 143 mm[Hg] Albina Jett PA-C Work Phone: [facility] 02-06-2024 12:30-0500 Body temperature 97.59 [degF] Champ Waterman MD Work Phone: [facility] 02-06-2024 12:30-0500 Diastolic blood pressure 49 mm[Hg] Champ Waterman MD Work Phone: [facility] 02-06-2024 12:30-0500 Heart rate 64 /min Champ Waterman MD Work Phone: [facility] 02-06-2024 12:30-0500 Respiratory rate 18 /min Champ Waterman MD Work Phone: [facility] 02-06-2024 12:30-0500 Systolic blood pressure 138 mm[Hg] Champ Waterman MD Work Phone: [facility] 02-06-2024 11:49-0500 Body mass index (BMI) [Ratio] 50.24 kg/m2 Champ Waterman MD Work Phone: [facility] 02-06-2024 11:49-0500 Body weight 120.6 kg Champ Waterman MD Work Phone: [facility] 02-06-2024 11:49-0500 SaO2% (BldA) [Mass fraction] 98 % Champ Waterman MD Work Phone: [facility] 01-20-2024 10:00-0400 Body mass index (BMI) [Ratio] 50.53 kg/m2 Rosie Murillo PA-C Work Phone: [facility] 01-20-2024 10:00-0400 Body temperature 97.9 [degF] Rosie Devault PA-C Work Phone: [facility] 01-20-2024 10:00-0400 Body weight 121.3 kg Rosie Murillo PA-C Work Phone: [facility] 01-20-2024 10:00-0400 Diastolic blood pressure 65 mm[Hg] Rosie Murillo PA-C Work Phone: [facility] 01-20-2024 10:00-0400 Heart rate 89 /min Rosie Murillo PA-C Work Phone: [facility] 01-20-2024 10:00-0400 Systolic blood pressure 147 mm[Hg] Rosie Murillo PA-C Work Phone: [facility] 01-12-2024 13:00-0400 Body mass index (BMI) [Ratio] 49.74 kg/m2 Magdalena Luke PA-C Work Phone: [facility] 01-12-2024 13:00-0400 Body temperature 97 [degF] Magdalena Luke PA-C Work Phone: [facility] 01-12-2024 13:00-0400 Body weight 119.4 kg Magdalena Luke PA-C Work Phone: [facility] 01-12-2024 13:00-0400 Diastolic blood pressure 65 mm[Hg] Magdalena Luke PA-C Work Phone: [facility] 01-12-2024 13:00-0400 Heart rate 76 /min Magdalena Luke PA-C Work Phone: [facility] 01-12-2024 13:00-0400 Respiratory rate 20 /min Magdalena Luke PA-C Work Phone: [facility] 01-12-2024 13:00-0400 Systolic blood pressure 145 mm[Hg] Magdalena Luke PA-C Work Phone: [facility] 12-31-2023 11:00-0400 Body mass index (BMI) [Ratio] 48.49 kg/m2 Jose Sin MD Work Phone: [facility] 12-31-2023 11:00-0400 Body weight 116.4 kg Jose Sin MD Work Phone: [facility] 12-31-2023 09:00-0400 Body temperature 98.6 [degF] Jose Sin MD Work Phone: [facility] 12-31-2023 09:00-0400 Diastolic blood pressure 46 mm[Hg] Jose Sin MD Work Phone: [facility] 12-31-2023 09:00-0400 Heart rate 61 /min Jose Sin MD Work Phone: [facility] 12-31-2023 09:00-0400 Respiratory rate 16 /min Jose Sin MD Work Phone: [facility] 12-31-2023 09:00-0400 SaO2% (BldA) [Mass fraction] 93 % Jose Sin MD Work Phone: [facility] 12-31-2023 09:00-0400 Systolic blood pressure 101 mm[Hg] Jose Sin MD Work Phone: [facility] 12-17-2023 22:00-0400 Body height 154.9 cm Jose Sin MD Work Phone: [facility] 07-21-2023 08:35-0400 Body height 157.[address] Pk Sloan Work Phone: [facility] 07-21-2023 08:35-0400 Body weight 115.[address] Pk Sloan Work Phone: [facility] 07-21-2023 08:35-0400 Heart rate 72 /min Dr. Pk Sloan Work Phone: [facility] 07-21-2023 08:35-0400 SaO2% (BldA) [Mass fraction] 92 % Dr. Pk Sloan Work Phone: [facility] 06-10-2023 20:53-0500 Body temperature 98.5 [degF] Dr. Pk Sloan Work Phone: [facility] 06-10-2023 20:53-0500 Diastolic blood pressure 50 mm[Hg] Dr. Pk Sloan Work Phone: [facility] 06-10-2023 20:53-0500 Heart rate 89 /min Dr. Pk Sloan Work Phone: [facility] 06-10-2023 20:53-0500 Respiratory rate 20 /min Dr. Pk Sloan Work Phone: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 minutes if needed, alternating nostrils, until medical assistance becomes available., Disp: 2 Each, Rfl: 0 ALPRAZolam (XANAX) 1 MG tablet, Take 1 Tablet (1 mg) by mouth 3 times daily, Disp: , Rfl: diclofenac sodium (VOLTAREN) 75 MG EC tablet, Take 1 Tablet (75 mg) by mouth daily, Disp: , Rfl: VENTOLIN HFA 108 (90 Base) MCG/ACT inhaler, , Disp: , Rfl: Alcohol Swabs (ALCOHOL PADS), , Disp: , Rfl: amitriptyline (ELAVIL) 25 MG tablet, Take by mouth, Disp: , Rfl: atenolol (TENORMIN) 100 MG TABS tablet, Take by mouth, Disp: , Rfl: buPROPion (WELLBUTRIN) 100 MG tablet, Take 2 Tablets (200 mg) by mouth 2 times daily, Disp: , Rfl: FARXIGA 10 MG TABS, , Disp: , Rfl: Docusate Sodium (DSS) 100 MG CAPS, Take 1 Capsule (100 mg) by mouth 2 times daily, Disp: , Rfl: fexofenadine (RAF) 180 MG tablet, Take 1 Tablet (180 mg) by mouth, Disp: , Rfl: fluticasone (FLONASE) 50 MCG/ACT nasal spray, Administer in nose, Disp: , Rfl: Glimepiride (AMARYL) 4 MG TABS, Take 1 Tablet (4 mg) by mouth every morning (before breakfast), Disp: , Rfl: ONETOUCH ULTRA test strip, , Disp: , Rfl: MUCUS RELIEF MAX ST 1200 MG TB12, , Disp: , Rfl: loratadine (CLARITIN) 10 MG tablet, , Disp: , Rfl: montelukast (SINGULAIR) 10 MG tablet, , Disp: , Rfl: Nvjin-6-ywxo Ethyl Esters 1 g CAPS, , Disp: [...] 62.5 MCG/ACT AEPB, , Disp: , Rfl: Current Facility-Administered Medications: silver sulfADIAZINE (SILVADENE) 1 % cream 400 g, 400 g, Topical, Once, Albina Jett PA-C XEROFORM PETROLATUM ROLL 4X9' (XEROFORM) 1 Each, 1 Each, Topical, Once, Albina Jett PA-C SOCIAL/FAMILY HISTORY: Kamini lives with spouse who is unable to help with wound care. Daughters live nearby and are able tohelp. Social History Tobacco Use Smoking status: Every Day Current packs/day: 1.00 Types: Cigarettes Passive exposure: Current Smokeless tobacco: Never Vaping Use Vaping status: Never Used Substance Use Topics Alcohol use: Never Drug use: Never History reviewed. No pertinent family history. VITAL SIGNS: Vitals: 03/02/24 1043 BP: (!) 158/63 Patient Position: Sitting Pulse: 72 Resp: 20 Temp: 36.1 C (97 F) Weight: (!) 116.2 kg PHYSICAL EXAM: General: Kamini appears healthy, well developed, well nourished, in no acute distress Head/Face: atraumatic and normocephalic Neurologic: alert, oriented appropriately for age Eyes: pupils equal, round Chest/Respiratory: Easy, non-labored breathing Cardiac: Warm & well perfused Extremities: Moves all extremities spontaneously Integumentary: Graft loss to the bilateral dorsal feet with continued good improvement and healing.Left foot is healed. Remnant open areas of the top and lateral side of the right foot. There is dryskin on the perimeter of the wounds on both feet, skin is healed underneath when peeled off. The wound bed is pink and moist with scattered eschar. 03/02/24 02/24/24 02/17/24 04/14/23 DATA NA DIAGNOSIS: Kamini is a 58 y.o. female who sustained scald shaffer to the bilateral feet. Now s/p STSG and with graft loss. PROCEDURES: Local wound care by nursing and Dressing application by nursing PLAN: Surgical Intervention: Significant graft loss to the b/l dorsal feet but improved after institutingdaily dressing change with silvadene. Repeat surgery is not indicated. Wound Care: Wash gently with a mild soap and water every day. Left foot- apply lotion TID + tubi-bilingual executive assistant Right foot- apply silvadene + mep border + tubi-bilingual executive assistant Pruritis: Improved Pain Medication: Tylenol q6h PRN. Advised that I am not going to refill oxycodone today as the painshe is complaining of (right lateral ankle) is not over burned/grafted skin. I think this pain is related to her neuropathy. Recommended she FU with family doctor. She verbalized understanding and states that she will. Nutrition: Pt educated on increasing daily caloric and protein intake to promote wound healing Activity/Work: No restrictions PT/OT: Seen by PT 02/12. Will coordinate next appt with them for compression garment measurement. Follow up: 2 weeks Education: Reviewed signs and symptoms of infection to include fever, redness or swelling extendingoutside of the burn, or purulent drainage. 12:09 PM 03/02/2024 Albina Jett PA-C documented in this [facility]11-22-2024 History of Present illness Narrative* Albina Jett PA-C - 02/24/2024 11:30 AM EST Images from the original note were not included. OP BURN FOLLOW-UP VISIT DATE OF SERVICE: 02/24/2024 ATTENDING PROVIDER: Albina Jett PA-C PRIMARY CARE PROVIDER: Jaquan Ha, LUCY-REGISTER REPAIRER Date of Burn: 12/17/23 4.1 %TBSA full thickness scald shaffer to bilateral feet and left lower leg DOI: 12/17/23 OR: 12/20: Excision of shaffer to bilateral feet and left lower leg; placement of allograft 12/25: Excision of shaffer to bilateral feet and lower leg, placement of dermal substitute 01/29: Bilateral dorsal foot grafting over BTM neodermis, donor site left thigh POD #: 36 CHIEF COMPLAINT: Follow Up HPI: Kamini is a 58 y.o. female with history of depression/anxiety, neuropathy, fibromyalgia, hypertension, heart failure with preserved EF, dyslipidemia, COPD, sleep apnea, GERD, history of DVT/PE, diabetes who was admitted due to full- thickness scald shaffer to bilateral feet. She underwent surgical intervention as listed above. The patient is being seen today as a follow up visit. She is accompanied by her daughter, Althea. Kamini's two daughters have continued to alternate helping her with daily wound care this week. She denies any complication with the wound care. She has been having a lot of pain of her bilateral pain, occurring more often than just at dressing change time. She thinks it is related to the swelling of her bilateral feet. She does not spend a lot of time on her feet. She thinks the post op shoes are rubbing on her heels and preventing them from healing. She has no oxycodone remaining. Pain/itching of the left thigh donor site is improved. Her rollator walker arrived to her home but she forgot to kimmie VELEZ back today. No fever. No nausea/vomiting/constipation. Kamini does not check her blood glucose at home. REVIEW OF SYSTEMS: Review of Systems Constitutional: Positive for activity change. Negative for chills and fever. Respiratory: Positive for chest tightness (pt experiences chest pain/tighthess with anxiety). Negative for cough and shortness of breath. Gastrointestinal: Negative for abdominal pain, constipation, diarrhea, nausea and vomiting. Skin: Positive for wound. Negative for color change. PAST MEDICAL/SURGICAL HISTORY: Past Medical History: Diagnosis Date Anxiety disorder COPD (chronic obstructive pulmonary disease) Deep vein thrombophlebitis of leg Fibromyalgia GERD (gastroesophageal reflux disease) Heart failure Hypertension Major depressive disorder, single episode Neuropathy Other pulmonary embolism without acute cor pulmonale patient states that she has had multiple Rheumatoid arthritis Type 2 diabetes mellitus without complications Past Surgical History: Procedure Laterality Date SPLIT THICKNESS SKIN GRAFT Bilateral 12/21/2023 Burn debridement and split thickness skin graft to bilateral feet performed by Jose Sin MD at [facility] OR SPLIT THICKNESS SKIN GRAFT Bilateral 12/26/2023 Removal of cadaveric homograft to bilateral feet with application of split thickness skin graft performed by Champ Waterman MD at [facility] OR SPLIT THICKNESS SKIN GRAFT Bilateral 01/30/2024 Removal of skin substitute to bilateral feet and application of split thickness skin graft performed by Champ Waterman MD at [facility] OR TOENAIL EXCISION Left Anesthesia History DRUG/FOOD ALLERGIES: Allergies Allergen Reactions Enoxaparin Itching Varenicline Other (See Comments) Per pt mental issues made her go crazy Heparin Itching and Rash Azithromycin Hives MEDICATIONS: Current Outpatient Medications: XEROFORM PETROLATUM ROLL 4X9' (XEROFORM) MISC 4 x 108 roll dressing, Apply to affected area as needed for Other (Dressing Change) for up to 30 days, Disp: 1 Each, Rfl: 0 silver sulfADIAZINE (SILVADENE) 1 % CREA cream, Apply to affected area as needed for Other (Dressing Change) for up to 30 days Patient apply to affected area daily., Disp: 400 g, Rfl: 0 oxyCODONE, immediate release, (ROXICODONE) 5 MG tablet, Take 1 Tablet (5 mg) by mouth daily as needed for Pain (30 minutes prior to dressing change) for up to 7 days, Disp: 7 Tablet, Rfl: 0 diphenhydrAMINE (BENADRYL) 25 MG capsule, Take 1 Capsule (25 mg) by mouth every 8 hours as needed for Itching for up to 14 days, Disp: 24 Capsule, Rfl: 0 acetaminophen (TYLENOL) 325 MG tablet, Take 2 Tablets (650 mg) by mouth every 6 hours as needed forPain for up to 30 days, Disp: 240 Tablet, Rfl: 0 metFORMIN (GLUCOPHAGE) 1000 MG, Take 1 Tablet (1,000 mg) by mouth 2 times daily for 30 days, Disp: 60 Tablet, Rfl: 0 rivaroxaban (XARELTO) 20 MG TABS tablet, Take 1 Tablet (20 mg) by mouth daily for 30 days, Disp: 30Tablet, Rfl: 0 senna-docusate (SENNAS) 8.6-50 MG tablet, Take 1 Tablet (8.6 mg) by mouth daily for 30 days, Disp: 30 Tablet, Rfl: 0 Vjjdtuyfbph-Sxzuqnvex-Btullt (TRELEGY ELLIPTA) 200-62.5-25 MCG/ACT AEPB, Inhale 1 Inhalation into the lungs daily for 30 days, Disp: 28 Each, Rfl: 0 Naloxone HCl (NARCAN) 4 MG/0.1ML LIQD, Administer 0.1 mL (4 mg) in nose as needed (Opioid reversal)for up to 2 doses May repeat every 2-3 minutes if needed, alternating nostrils, until medical assistance becomes available., Disp: 2 Each, Rfl: 0 ALPRAZolam (XANAX) 1 MG tablet, Take 1 Tablet (1 mg) by mouth 3 times daily, Disp: , Rfl: diclofenac sodium (VOLTAREN) 75 MG EC tablet, Take 1 Tablet (75 mg) by mouth daily, Disp: , Rfl: VENTOLIN HFA 108 (90 Base) MCG/ACT inhaler, , Disp: , Rfl: Alcohol Swabs (ALCOHOL PADS), , Disp: , Rfl: amitriptyline (ELAVIL) 25 MG tablet, Take by mouth, Disp: , Rfl: atenolol (TENORMIN) 100 MG TABS tablet, Take by mouth, Disp: , Rfl: buPROPion (WELLBUTRIN) 100 MG tablet, Take 2 Tablets (200 mg) by mouth 2 times daily, Disp: , Rfl: FARXIGA 10 MG TABS, , Disp: , Rfl: Docusate Sodium (DSS) 100 MG CAPS, Take 1 Capsule (100 mg) by mouth 2 times daily, Disp: , Rfl: fexofenadine (RAF) 180 MG tablet, Take 1 Tablet (180 mg) by mouth, Disp: , Rfl: fluticasone (FLONASE) 50 MCG/ACT nasal spray, Administer in nose, Disp: , Rfl: Glimepiride (AMARYL) 4 MG TABS, Take 1 Tablet (4 mg) by mouth every morning (before breakfast), Disp: , Rfl: ONETOUCH ULTRA test strip, , Disp: , Rfl: MUCUS RELIEF MAX ST 1200 MG TB12, , Disp: , Rfl: loratadine (CLARITIN) 10 MG tablet, , Disp: , Rfl: montelukast (SINGULAIR) 10 MG tablet, , Disp: , Rfl: Ebvkq-0-vcet Ethyl Esters 1 g CAPS, , Disp: [...] 62.5 MCG/ACT AEPB, , Disp: , Rfl: Current Facility-Administered Medications: XEROFORM PETROLATUM ROLL 4X9' (XEROFORM) 1 Each, 1 Each, Topical, Once, Albina Jett PA-C silver sulfADIAZINE (SILVADENE) 1 % cream, , , , SOCIAL/FAMILY HISTORY: Kamini lives with spouse who is unable to help with wound care. Daughters live nearby and are able tohelp. Social History Tobacco Use Smoking status: Every Day Current packs/day: 1.00 Types: Cigarettes Passive exposure: Current Smokeless tobacco: Never Vaping Use Vaping status: Never Used Substance Use Topics Alcohol use: Never Drug use: Never History reviewed. No pertinent family history. VITAL SIGNS: Vitals: 02/24/24 1122 BP: (!) 179/75 Patient Position: Sitting Pulse: 56 Temp: 36.1 C (96.9 F) Weight: (!) 115.2 kg PHYSICAL EXAM: General: Kamini appears healthy, well developed, well nourished, in no acute distress Head/Face: atraumatic and normocephalic Neurologic: alert, oriented appropriately for age Eyes: pupils equal, round Chest/Respiratory: Easy, non-labored breathing Cardiac: Warm & well perfused Extremities: Moves all extremities spontaneously Integumentary: Left thigh donor site is healed with one small scab. Significant graft loss to the bilateral dorsal feet with continued good improvement and healing since instituting daily dressing changes 2 weeks ago. She has healed the majority of the left foot with scattered open areas with yellow eschar. More healing of the right foot this week with thinning of yellow eschar. Skin island has healed on the medial right ankle. The wound bed is pink and moist with scattered eschar. 02/24/24 02/17/24 04/14/23 DATA NA DIAGNOSIS: Kamini is a 58 y.o. female who sustained scald shaffer to the bilateral feet. Now s/p STSG and with graft loss. PROCEDURES: Local wound care by nursing and Dressing application by nursing PLAN: Surgical Intervention: Significant graft loss to the b/l dorsal feet but improved after institutingdaily dressing change with silvadene. Will continue to monitor. Wound Care: Wash gently with a mild soap and water every day. Apply silvadene/xeroform/DSD to wounds daily until otherwise directed. Wrapped with ALLEN as well due to swelling. Pruritis: Endorses of left thigh donor site but improving. Continue benadryl q8h PRN. Pain Medication: The patient reports that there are 0 pills remaining from the previous opioid prescription of #7oxycodone. Refill e-prescribed to utilized on daily PRN prior to dressing change #7. OARRS reviewed. Opioid consent on file. Tylenol q6h PRN. Nutrition: Pt educated on increasing daily caloric and protein intake to promote wound healing Activity/Work: No restrictions PT/OT: Seen by PT 02/12. Will re-involve them for compression garment measurement when she is closer to being healed. Follow up: Next week Education: Reviewed signs and symptoms of infection to include fever, redness or swelling extendingoutside of the burn, or purulent drainage. 2:36 PM 02/24/2024 Albina Jett PA-C [facility] Miscellaneous Notes* Addendum Note - Tiffany Madrid RN - 02/24/2024 11:30 AM EST Encounter addended by: Tiffany Madrid RN on: 02/24/2024 4:15 PM Actions taken: Charge Capture section accepted [facility] this [facility] Note* Addendum Note - Tiffany Madrid RN - 02/24/2024 11:30 AM ESTEncounter addended by: Tiffany Madrid RN on: 02/24/2024 4:15 PM Actions taken: Charge Capture section accepted [facility]11-15-2024 Hospital Discharge instructions* Discharge Instructions* Trupti Wills RN - 02/17/2024 9:55 AM EST Burn Home Going Instructions Instructions for Home Care: Dressings are to be changed Daily Keep dressings clean and dry. May bathe/shower using mild soap and clean wash cloth. Elevate the extremity of affected area if possible, above heart level. May take acetaminophen and/or ibuprofen for discomfort as directed (providing there is no allergy or contraindication to taking). Take pain medication 30 minutes prior to scheduled appointment and prior to dressing change at home. Make sure pain medication is not taken more frequently than prescribed. No alcohol or driving when taking opiods. Observe for redness, swelling, foul odor, elevated temperature or increased pain (may indicate possible infection). Pressure Injury Care: An important part of treating your pressure injury is relieving the pressure (off-loading) from the wound area, protecting the area from moisture, and maintaining good nutrition. High protein, high calorie diet (i.e. eggs, cheese, meat and milk products) promotes burn wound healing. Encourage liquids (juices, Gatorade, etc.) to replace lost body fluids and speed healing. Avoid extreme changes in temperature. Avoid direct sun exposure. When outdoors, always use a sunscreen with SPF of at least 30. Use as directed. Additional Information: Cleanse feet with mild soap. Ensure all ointment is off and wound is clean.Apply thick layer of silvadene onto tops of feet and toes. Apply xeroform on top of the silvadene and weave in between toes. Wrap feet with gauze and aces. Call [facility] for any questions or concerns [phone]. documented in this [facility]Park[facility] History of Present illness Narrative* Albina Jett PA-C - 02/17/2024 9:30 AM EST Images from the original note were not included. OP BURN FOLLOW-UP VISIT DATE OF SERVICE: 02/17/2024 ATTENDING PROVIDER: Albina Jett PA-C PRIMARY CARE PROVIDER: Jaquan Ha APRN-CNP Date of Burn: 12/17/23 4.1 %TBSA full thickness scald shaffer to bilateral feet and left lower leg DOI: 12/17/23 OR: 12/20: Excision of shaffer to bilateral feet and left lower leg; placement of allograft 12/25: Excision of shaffer to bilateral feet and lower leg, placement of dermal substitute 01/29: Bilateral dorsal foot grafting over BTM neodermis, donor site left thigh CHIEF COMPLAINT: Follow Up HPI: Kamini is a 58 y.o. female with history of depression/anxiety, neuropathy, fibromyalgia, hypertension, heart failure with preserved EF, dyslipidemia, COPD, sleep apnea, GERD, history of DVT/PE, diabetes who was admitted due to full- thickness scald shaffer to bilateral feet. She underwent surgical intervention as listed above. The patient is being seen today as a follow up visit. She is accompanied by her son. Kamini's two daughters have alternated helping her with daily wound care this week. She denies any complication withthe wound care except for pain. She ran out of her oxycodone completely and inquires if she could have a refill so she could take a dose prior to wound care. Minimal pain of the left thigh donor site but very bothersome itching. She continues to take benadryl 2-3 times a day to help with the itching. She has minimal pain of her bilateral feet outside of dressing changes. Using FWE at home, came to appt today in hospital wheelchair. No fever. No nausea/vomiting/constipation. Kamini does not check her blood glucose at home. REVIEW OF SYSTEMS: Review of Systems Constitutional: Positive for activity change. Negative for chills and fever. Respiratory: Positive for chest tightness (pt experiences chest pain/tighthess with anxiety). Negative for cough and shortness of breath. Gastrointestinal: Negative for abdominal pain, constipation, diarrhea, nausea and vomiting. Skin: Positive for wound. Negative for color change. PAST MEDICAL/SURGICAL HISTORY: Past Medical History: Diagnosis Date Anxiety disorder COPD (chronic obstructive pulmonary disease) Deep vein thrombophlebitis of leg Fibromyalgia GERD (gastroesophageal reflux disease) Heart failure Hypertension Major depressive disorder, single episode Neuropathy Other pulmonary embolism without acute cor pulmonale patient states that she has had multiple Rheumatoid arthritis Type 2 diabetes mellitus without complications Past Surgical History: Procedure Laterality Date SPLIT THICKNESS SKIN GRAFT Bilateral 12/21/2023 Burn debridement and split thickness skin graft to bilateral feet performed by Jose Sin MD at [facility] OR SPLIT THICKNESS SKIN GRAFT Bilateral 12/26/2023 Removal of cadaveric homograft to bilateral feet with application of split thickness skin graft performed by Champ Waterman MD at [facility] OR SPLIT THICKNESS SKIN GRAFT Bilateral 01/30/2024 Removal of skin substitute to bilateral feet and application of split thickness skin graft performed by Champ Waterman MD at [facility] OR TOENAIL EXCISION Left Anesthesia History DRUG/FOOD ALLERGIES: Allergies Allergen Reactions Enoxaparin Itching Varenicline Other (See Comments) Per pt mental issues made her go crazy Heparin Itching and Rash Azithromycin Hives MEDICATIONS: Current Outpatient Medications: oxyCODONE, immediate release, (ROXICODONE) 5 MG tablet, Take 1 Tablet (5 mg) by mouth daily as needed for Pain (30 minutes prior to dressing change) for up to 7 days, Disp: 7 Tablet, Rfl: 0 diphenhydrAMINE (BENADRYL) 25 MG capsule, Take 1 Capsule (25 mg) by mouth every 8 hours as needed for Itching for up to 14 days, Disp: 24 Capsule, Rfl: 0 acetaminophen (TYLENOL) 325 MG tablet, Take 2 Tablets (650 mg) by mouth every 6 hours as needed forPain for up to 30 days, Disp: 240 Tablet, Rfl: 0 metFORMIN (GLUCOPHAGE) 1000 MG, Take 1 Tablet (1,000 mg) by mouth 2 times daily for 30 days, Disp: 60 Tablet, Rfl: 0 rivaroxaban (XARELTO) 20 MG TABS tablet, Take 1 Tablet (20 mg) by mouth daily for 30 days, Disp: 30Tablet, Rfl: 0 senna-docusate (SENNAS) 8.6-50 MG tablet, Take 1 Tablet (8.6 mg) by mouth daily for 30 days, Disp: 30 Tablet, Rfl: 0 Yjtcoogezfo-Clfqjytaq-Bpraqh (TRELEGY ELLIPTA) 200-62.5-25 MCG/ACT AEPB, Inhale 1 Inhalation into the lungs daily for 30 days, Disp: 28 Each, Rfl: 0 Naloxone HCl (NARCAN) 4 MG/0.1ML LIQD, Administer 0.1 mL (4 mg) in nose as needed (Opioid reversal)for up to 2 doses May repeat every 2-3 minutes if needed, alternating nostrils, until medical assistance becomes available., Disp: 2 Each, Rfl: 0 ALPRAZolam (XANAX) 1 MG tablet, Take 1 Tablet (1 mg) by mouth 3 times daily, Disp: , Rfl: diclofenac sodium (VOLTAREN) 75 MG EC tablet, Take 1 Tablet (75 mg) by mouth daily, Disp: , Rfl: VENTOLIN HFA 108 (90 Base) MCG/ACT inhaler, , Disp: , Rfl: Alcohol Swabs (ALCOHOL PADS), , Disp: , Rfl: amitriptyline (ELAVIL) 25 MG tablet, Take by mouth, Disp: , Rfl: atenolol (TENORMIN) 100 MG TABS tablet, Take by mouth, Disp: , Rfl: buPROPion (WELLBUTRIN) 100 MG tablet, Take 2 Tablets (200 mg) by mouth 2 times daily, Disp: , Rfl: FARXIGA 10 MG TABS, , Disp: , Rfl: Docusate Sodium (DSS) 100 MG CAPS, Take 1 Capsule (100 mg) by mouth 2 times daily, Disp: , Rfl: fexofenadine (RAF) 180 MG tablet, Take 1 Tablet (180 mg) by mouth, Disp: , Rfl: fluticasone (FLONASE) 50 MCG/ACT nasal spray, Administer in nose, Disp: , Rfl: Glimepiride (AMARYL) 4 MG TABS, Take 1 Tablet (4 mg) by mouth every morning (before breakfast), Disp: , Rfl: ONETOUCH ULTRA test strip, , Disp: , Rfl: MUCUS RELIEF MAX ST 1200 MG TB12, , Disp: , Rfl: loratadine (CLARITIN) 10 MG tablet, , Disp: , Rfl: montelukast (SINGULAIR) 10 MG tablet, , Disp: , Rfl: Wuefg-5-iyct Ethyl Esters 1 g CAPS, , Disp: [...] 62.5 MCG/ACT AEPB, , Disp: , Rfl: Current Facility-Administered Medications: silver sulfADIAZINE (SILVADENE) 1 % cream 400 g, 400 g, Topical, Once, Albina Jett PA-C XEROFORM PETROLATUM ROLL 4X9' (XEROFORM) 1 Each, 1 Each, Topical, Once, Albina Jett PA-C XEROFORM PETROLATUM ROLL 4X9' (XEROFORM) 1 Each, 1 Each, Topical, Once, Albina Jett PA-C SOCIAL/FAMILY HISTORY: Kamini lives with spouse who is unable to help with wound care. Daughters live nearby and are able tohelp. Social History Tobacco Use Smoking status: Every Day Current packs/day: 1.00 Types: Cigarettes Passive exposure: Current Smokeless tobacco: Never Vaping Use Vaping status: Never Used Substance Use Topics Alcohol use: Never Drug use: Never History reviewed. No pertinent family history. VITAL SIGNS: Vitals: 02/17/24 0917 BP: (!) 143/64 Patient Position: Sitting Pulse: 60 Temp: 36.1 C (97 F) Weight: (!) 117.5 kg PHYSICAL EXAM: General: Kamini appears healthy, well developed, well nourished, in no acute distress Head/Face: atraumatic and normocephalic Neurologic: alert, oriented appropriately for age Eyes: pupils equal, round Chest/Respiratory: Easy, non-labored breathing Cardiac: Warm & well perfused Extremities: Moves all extremities spontaneously Integumentary: Left thigh donor site is healed with a little bit re-opened and excoriation on the lateral side. Significant graft loss to the bilateral dorsal feet with good improvement and healing since instituting daily dressing changes last week. She has healed the majority of the left foot withscattered open areas with yellow eschar. Not as much of the right foot has healed, still has remnant open areas due to graft loss medial and lateral foot with marbled areas of yellow eschar. The wound bed is pink and moist with scattered eschar. 02/17/24 04/14/23 DATA NA DIAGNOSIS: Kamini is a 58 y.o. female who sustained scald shaffer to the bilateral feet. Now s/p STSG and with graft loss. PROCEDURES: Local wound care by nursing and Dressing application by nursing PLAN: Surgical Intervention: Significant graft loss to the b/l dorsal feet but improved after institutingdaily dressing change with silvadene. Will continue to monitor. Wound Care: Wash gently with a mild soap and water every day. Apply silvadene/xeroform/DSD to wounds daily until otherwise directed. Wrapped with ALLEN as well due to swelling. Pruritis: Endorses of left thigh donor site. Continue benadryl q8h PRN. Denies needing refill. Pain Medication: The patient reports that there are 0 pills remaining from the previous opioid prescription of #14 oxycodone. Refill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 (gastroesophageal reflux disease) Heart failure Hypertension Major depressive disorder, single episode Neuropathy Other pulmonary embolism without acute cor pulmonale patient states that she has had multiple Rheumatoid arthritis Type 2 diabetes mellitus without complications Principle problems: Patient Active Problem List Diagnosis Date Noted Partial thickness burn of right foot, initial encounter 12/17/2023 Scald burn 12/17/2023 Burn due to contact with hot water in bath 12/17/2023 Partial thickness burn of left foot 12/17/2023 Shaffer involving less than 10% of body surface 12/17/2023 Allergies: Allergies Allergen Reactions Enoxaparin Itching Varenicline Other (See Comments) Per pt mental issues made her go crazy Heparin Itching and Rash Azithromycin Hives 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 Medications: Medications Prior to Admission Medication Sig Dispense Refill Last Dose/Taking Acetaminophen (TYLENOL) 650 MG TBCR Taking VENTOLIN HFA 108 (90 Base) MCG/ACT inhaler Taking ALPRAZolam 3 MG TB24 Taking buPROPion (WELLBUTRIN) 100 MG tablet Take 2 Tablets (200 mg) by mouth 2 times daily Taking FARXIGA 10 MG TABS Taking diclofenac sodium (VOLTAREN) 75 MG EC tablet Taking Docusate Sodium (DSS) 100 MG CAPS Take 1 Capsule (100 mg) by mouth 2 times daily Taking fexofenadine (RAF) 180 MG tablet Take 1 Tablet (180 mg) by mouth Taking fluticasone (FLONASE) 50 MCG/ACT nasal spray Administer in nose Taking furosemide (LASIX) 40 MG TABS tablet Taking Glimepiride (AMARYL) 4 MG TABS Take 1 Tablet (4 mg) by mouth every morning (before breakfast) Taking ONETOUCH ULTRA test strip Taking MUCUS RELIEF MAX ST 1200 MG TB12 Taking Insulin Lispro, 1 Unit Dial, (HUMALOG) 100 UNIT/ML SOPN Insulin Lispro (Humalog Kwikpen Insulin) 100 unit/mL Insulin Pen Active 0 UNIT SC BEFORE MEALS AND AT BEDTIME June 08, 2022 1:00am Taking loratadine (CLARITIN) 10 MG tablet Taking montelukast (SINGULAIR) 10 MG tablet Taking nystatin (MYCOSTATIN) 450447 UNIT/ML oral suspension swish and swallow 5 milliliters by mouth four times a day until finished Taking Avnoa-4-ebls Ethyl Esters 1 g CAPS Taking omeprazole (PRILOSEC) 20 MG capsule Take 2 Capsules (40 mg) by mouth daily Taking trimethoprim-polymyxin b (POLYTRIM) 18615-8.1 UNIT/ML-% ophthalmic solution instill 1 drop into right eye every 4 hours for 10 days Taking pravastatin (PRAVACHOL) 40 MG tablet Take 1 Tablet (40 mg) by mouth daily Taking pregabalin (LYRICA) 100 MG capsule Take 3 Capsules (300 mg) by mouth 2 times daily Taking QUEtiapine (SEROQUEL) 100 MG tablet Take 1 Tablet (100 mg) by mouth 2 times daily Taking traZODone (DESYREL) 50 MG tablet Take 1 Tablet (50 mg) by mouth nightly at bedtime Taking INCRUSE ELLIPTA 62.5 MCG/ACT AEPB Taking Alcohol Swabs (ALCOHOL PADS) amitriptyline (ELAVIL) 25 MG tablet Take by mouth atenolol (TENORMIN) 100 MG TABS tablet Take by mouth Current Facility-Administered Medications Medication Dose Route Frequency Provider Last Rate Last Admin midazolam (VERSED) IV 2 mg 2 mg Intravenous Dressing Change Deepak Lopez MD 2 mg at 4 And midazolam (VERSED) IV 1 mg 1 mg Intravenous Dressing Change Deepak Lopez MD fentaNYL (SUBLIMAZE) injection 100 mcg 100 mcg Intravenous Dressing Change Deepak Lopez MD 100 mcg at 12/18/23 0944 And fentaNYL (SUBLIMAZE) injection 50 mcg 50 mcg Intravenous Dressing Change Deepak Lopez MD 50 mcg at 12/18/23 0954 bacitracin 500 UNIT/GM ointment - jar Topical Daily Sandi Dc PA-C Given at 12/18/23 1000 collagenase (SANTYL) ointment Topical Daily Sandi Dc PA-C Given at 12/18/23 1000 bisacodyl (DULCOLAX) suppository 10 mg 10 mg Rectal Q72H PRN Juana Cordova PA-C polyethylene glycol (GLYCOLAX) packet 17 g 17 g Oral Daily Juana Cordova PA-C senna-docusate (SENNAS) tablet 8.6 mg 8.6 mg Oral Daily Juana Cordova PA-C Multivitamin mineral supplement (CENTRUM) tablet 1 Tablet 1 Tablet Oral Daily Juana Cordova PA-C Or multivitamin (CENTRUM) oral liquid 15 mL 15 mL Oral Daily Juana Cordova PA-C acetaminophen (TYLENOL) 325 MG tablet 650 mg 650 mg Oral Q4H PRN Juana Cordova PA-C insulin lispro (HumaLOG) injection (Meals/Bedtime-Vial Calculator) 0-10 Units 0- 10 Units Subcutaneous Before Meals & At Bedtime Juana Cordova PA-C 2 Units at 12/18/23 0805 albuterol (PROAIR HFA;VENTOLIN HFA;PROVENTIL HFA) 108 (90 Base) MCG/ACT inhaler 2 Puff 2 Puff Inhalation Q4H PRN Juana Cordova PA-C ALPRAZolam (XANAX) tablet 1 mg 1 mg Oral TID PRN Juana Cordova PA-C 1 mg at 12/18/23 0017 atenolol (TENORMIN) tablet 100 mg 100 mg Oral Daily Juana Cordova PA-Fabiola buPROPion (WELLBUTRIN SR) SR tablet 150 mg 150 mg Oral BID Juana Cordova PA-C 150 mg at 12/18/23 0020 diclofenac sodium (VOLTAREN) EC tablet 75 mg 75 mg Oral BID Juana Cordova PA-C docusate sodium (COLACE) capsule 100 mg 100 mg Oral BID Juana Cordova PA-C furosemide (LASIX) tablet 40 mg 40 mg Oral Daily Juana Cordova PA-C loratadine (CLARITIN) tablet 10 mg 10 mg Oral Daily Juana Cordova PA-C montelukast (SINGULAIR) tablet 10 mg 10 mg Oral QHS Juana Cordova PA-C guaiFENesin (MUCINEX) SR tablet 1,200 mg 1,200 mg Oral BID Juana Cordova PA-C 1,200 mg at 12/18/23 002 omeprazole (PriLOSEC) capsule 40 mg 40 mg Oral Daily Juana Cordova PA-C atorvastatin (LIPITOR) tablet 10 mg 10 mg Oral at Bedtime Juana Cordova PA-C 10 mg at 12/18/2316 pregabalin (LYRICA) capsule 300 mg 300 mg Oral BID Juana Cordova PA-C 300 mg at 12/18/237 traZODone (DESYREL) tablet 50 mg 50 mg Oral at Bedtime Juana Cordova PA-C 50 mg at 12/18/2316 QUEtiapine (SEROquel) tablet 100 mg 100 mg Oral QHS Juana Cordova PA-C venlafaxine (EFFEXOR-XR) XR capsule 150 mg 150 mg Oral Daily Juana Cordova PA-C Past Surgical History: has a past surgical history that includes Toenail excision (Left). Recent sedation/surgery (24 hours) No Review of Systems: Please check all that apply: Snoring, Cardiac Disease, Obstructive Sleep Apnea, and Obesity Test Completed prior to procedure on any menstruating female: N/A NPO guidelines met: Yes ASA: 3 a patient with severe systemic disease Mallimpati Scores: II Physical Exam: Vitals: Stable (Normal) General: WD, obese, NAD (Normal) Dental: No loose or chipped teeth (Normal) Airway/Lungs: LCTAB; no crackles, wheezes, or rhonchi (Normal) CVS: Nl s1 and s2; no murmurs, rubs, or gallops (Normal) Abdomen: +BS, soft, NT, ND (Normal) Neurology: No focal deficits (Normal) Procedural Sedation Documentation Consent: Adult Patient Risks, benefits, and alternatives discussed with person authorized to consent, who verbalized understanding and gave consent: Consent for Procedural Sedation: Yes Immediate Reassessment: I examined this patient at 09:42, immediately prior to induction of sedation, and patient is ready to proceed. Sedation Plan: Monitoring as per Hospital protocols; Other monitors: NA Any Category 1 or Category 2 during sedation? No: No sedation Categories took place Interventions: N/A Was the sedation aborted?: No Additional information related to sedation procedure: N/A Recommendations for future sedations: N/A Medications used: Midazolam and Fentanyl Total Medication Dose: Fentanyl 100 mcg / Midazolam 2 mg at induction; Fentanyl 50 mcg x 1 / Midazolam 1 mg x 0 for pain/anxiety during the procedure. Post-Procedure Evaluation Patient has returned to baseline neurological and cardio-respiratory status and is discharged to: Inpatient floor 3600 Moderate sedation, I was in the immediate presence of the patient for monitoring and evaluating thepatient's procedural sedation from the sedation induction time of 09:44 until the time the patient could be discharged to nursing at 10:10. Deepak Lopez MD December 18, 2023 * Nursing - Tiffanie Arias RN - 12/18/2023 9:56 AM EDT Name: Kamini Irby Date: 12/18/2023 Time: 9:56 AM Pt awake, slightly drowsy, conversing appropriately with physicians. Pt stable, breathing is easy and unlabored, skin is warm and pink. No concerns at this time. Dr Lopez remains present for sedation. Tiffanie Arias, RN * Ancillary Consult - Michelle Bernal RD/RENÉ - 12/18/2023 9:44 AM EDT Burn Nutrition Evaluation Patient Name: Kamini Irby Date of : 1965 Sex: female Diagnosis: Patient Active Problem List Diagnosis Partial thickness burn of right foot, initial encounter Scald burn Burn due to contact with hot water in bath Partial thickness burn of left foot Shaffer involving less than 10% of body surface 1.8% TBSA Burn Scald partial thickness Reason for Referral: Assess calorie needs Nutrition History: Unable to obtain hx on admission, obtain when diet advanced Anthropometrics: Admission Wt. 110 kg Wt Readings from Last 3 Encounters: 12/18/23 (!) 118.2 kg 02/28/23 (!) 119.4 kg 02/21/23 (!) 119.2 kg Ht Readings from Last 3 Encounters: 12/17/23 (!) 154.9 cm 02/21/23 157.5 cm Calculated Body mass index is 49.24 kg/m . as calculated from the following: BMI Interpretation: Morbidly Obese Nutrition Significant Labs, Tests, Procedures: Recent Labs 12/18/23 0241 NA 140 K 3.7 CL 103 CO2 26.2 BUN 16 GLU 198* CREATININE 0.60 ALB 3.6 CALCIUM 9.3 Nutrition Related Medications and Vit/Min Supplements: Miralax, centrum, senna, Humalog, Wellbutrin, colace, lasix, elavil Current Nutrition Support: Diet: NPO Assessed Needs: Energy: 2550 kcals/day based on [place] + 201/burn1.8% Protein: 127 grams/day based on20-25% total calorie needs Fluids: per medical team Nutrition Assessment: 58 yo pt admitted with 1.8% scald burn. Obese, requires insulin for blood sugar control. Significant difference in admission wt/today's weight (8kgs). Currently NPO for surgical procedure tomorrow Malnutrition Identified: No malnutrition Nutrition Diagnosis: Increased energy and protein needs related to wound injury as evidenced by 1.8% scald burn Nutrition Prescription: 1. Advance diet as tolerated 2. If tube feed needed, recommend Promote with Fiber at 50mls hr advance by 25mls q 4 hours to a goal rate of 105mls/hr 3, recheck weight Nutrition Goals: 1. Meet ENN 2. Maintain current weight/prevent weight loss Time Spent: 15 minute(s) MIGDALIA Restrepo December 18, 2023 * Ancillary Progress Note - Griffin Baird - 12/18/2023 9:43 AM EDT Cableman Note Patient Name: Kamini Irby Date of : 1965 Date of Visit: 12/18/23 Initial visit attempted. Pt not in room at time of visit. Entry Level Marketing Representative left note and will continue attempting to visit Pt/family. Visit: Assessment: Interventions: Ma[place] Outcomes: Plan: Griffin Baird * Nursing - Tiffanie Arias RN - 12/18/2023 9:42 AM EDT Name: Kamini Irby Date: 12/18/2023 Time: 9:47 AM Pt arrived to triage room via pt bed. Pt alert and oriented, answering questions appropriately at this time. Pt is currently stable, breathing is easy and unlabored, skin is warm and pink. No concerns at this time. Dr. Lopez present for sedation. Tiffanie Arias, RN [facility] [facility]24 History of Present illness Narrative* Shante Martinez APRN-MUKESH - 12/31/2023 7:25 AM EDT Images from the original note were not included. DAILY PROGRESS NOTE Name: Kamini Irby Date:12/31/2023 Attending:Champ Waterman MD Hospital Day: 15 SUBJECTIVE: Reported issues and events over the last 24 hours: POD#5: Excision and BTM placement to bilateral feet - was in to visit overnight - no overnight events - pain well controlled, took Oxy x2 - highly anxious regarding her POx and BP measurements, often asks nursing to check frequently - ambulating with wheeled walker - one softer BP early this morning while asleep; no hypotension - BM x3 yesterday - afebrile Case Management working on acceptance to [facility] [place], feel they can take her and just awaiting precertification - will plan to change dressing prior to DC OBJECTIVE: Vitals: 12/31/23 0700 BP: Pulse: 64 Resp: 17 Temp: Temp (24hrs), Av.8 C (98.2 F), Min:36.3 C (97.3 F), Max:37 C (98.6 F) Vitals: 12/29/23 0838 12/30/23 0850 Weight: (!) 115.6 kg (!) 116.4 kg Weight Change Grams: 800 grams Weight Change K.8 Kg Weight Change %: 0.69 % I/O: Intake/Output Summary (Last 24 hours) at 12/31/2023 0725 Last data filed at 12/31/2023 0034 Gross per 24 hour Intake 2142 ml Output 3475 ml Net -1333 ml Physical Exam Vitals and nursing note reviewed. Constitutional: General: She is not in acute distress. Appearance: She is obese. She is not ill-appearing. HENT: Head: Normocephalic and atraumatic. Nose: No congestion. Mouth/Throat: Mouth: Mucous membranes are moist. Pharynx: Oropharynx is clear. No oropharyngeal exudate or posterior oropharyngeal erythema. Eyes: Extraocular Movements: Extraocular movements intact. Conjunctiva/sclera: Conjunctivae normal. Pupils: Pupils are equal, round, and reactive to light. Cardiovascular: Rate and Rhythm: Normal rate and regular rhythm. Heart sounds: Normal heart sounds. Comments: HR 60-70s Pulmonary: Effort: Pulmonary effort is normal. No respiratory distress. Breath sounds: Wheezing present. No rhonchi. Comments: + moist cough Abdominal: General: Bowel sounds are normal. There is no distension. Palpations: Abdomen is soft. Musculoskeletal: Cervical back: Neck supple. Right lower leg: Edema present. Left lower leg: Edema present. Comments: Minimal edema to bilateral feet Skin: General: Skin is warm and dry. Capillary Refill: Capillary refill takes less than 2 seconds. Comments: Seen during dressing change. BTM well adhered and incorporating. Scant amount of serous drainage from under laminate layer on left dorsal foot, no purulence. Some odor noted from in betweentoes, some additional eschar/devitalized tissue able to be cleansed and trimmed away. Skin just bene ath toes on plantar surface white/macerated. Acticoat flex 7 placed over BTM and ribboned through spaces in between toes. Mild edema to feet, non pitting. No erythema. Neurological: General: No focal deficit present. Mental Status: She is alert and oriented to person, place, and time. Psychiatric: Mood and Affect: Mood normal. Behavior: Behavior normal. Diagnostic Studies: None Medications: Scheduled Meds: rivaroxaban 20 mg Oral Daily insulin lispro 0-20 Units Subcutaneous Before Meals & At Bedtime glimepiride 4 mg Oral Daily with breakfast metFORMIN 1,000 mg Oral BID senna-docusate 8.6 mg Oral Daily polyethylene glycol 17 g Oral Daily DSS 100 mg Oral BID NaCl 0.9% 2 mL Intravenous Q8H insulin glargine 60 Units Subcutaneous at Bedtime atorvastatin 40 mg Oral at Bedtime ALPRAZolam 1 mg Oral TID Fluticasone-Salmeterol(sensor) 2 Puff Inhalation Twice Daily Umeclidinium Cascade 1 Puff Inhalation QAM acetaminophen 650 mg Oral Q6H Multivitamin mineral supplement 1 Tablet Oral Daily Or multivitamin 15 mL Oral Daily atenolol 100 mg Oral Daily buPROPion 150 mg Oral BID loratadine 10 mg Oral Daily montelukast 10 mg Oral QHS omeprazole 40 mg Oral Daily pregabalin 300 mg Oral BID traZODone 50 mg Oral at Bedtime QUEtiapine 100 mg Oral QHS venlafaxine 150 mg Oral Daily PRN Meds:. guaiFENesin 600 mg Oral Q12H PRN NaCl 0.9% 2 mL Intravenous PRN NaCl 0.9% 5 mL Intravenous PRN NaCl 30 mL Intravenous PRN sterile water 10 mL Intravenous PRN NaCl 10 mL Intravenous PRN oxyCODONE (immediate release) 2.5 mg Oral Q4H PRN Or oxyCODONE (immediate release) 5 mg Oral Q4H PRN bisacodyl 10 mg Rectal Q72H PRN albuterol 2 Puff Inhalation Q4H PRN Patient Lines/Drains/Airways Status Active LDAs None ASSESSMENT: 58 y.o. with a principal problem of Full thickness burn of left foot who requires admission for Acute or unresolved changes in physiologic status and Wound care. PLAN: NEURO: Pain Control: - Scheduled Tylenol 650 mg Q6hrs - Oxycodone 2.5 mg or 5 mg Q4hrs prn ( x1 2.5mg and x1 of 5mg in last 24h)- will plan to discharge on 2.5mg. Depression/Anxiety: - Continue home Venlafaxine 150 mg daily - Continue home Bupropion 150 mg BID - Continue home Xanax 1 mg TID Insomnia: - Continue home Trazodone 50 mg QHS - Continue home Seroquel 100 mg QHS Neuropathy: - Continue home Lyrica 300 mg BID Fibromyalgia, RA: - Home Voltaren Sodium - continue to hold while on anticoagulation with BTM CV: - EKG: NSR, nonspecific intraventricular conduction delay (12/18) - ECHO: Normal, EF 63% (12/18) - DERICK >1 (12/18); no need for doppler - Negative dobutamine stress test in 2021 - During cardiology f/u in June 2023 was recommended this be repeated as she c/o chest pain. Patient never had repeat test done because she was scared. HTN: - Atenolol 100 mg daily (with hold parameters) - Lisinopril 5 mg daily started 12/27; afterload reduction - on hold due to soft BPs - BPs 98-127/40-50s overnight; asymptomatic HFpEF: - Lasix 40 mg daily - on hold due to large UOP and hypotension Dyslipidemia: - Atorvastatin 40 mg QHS (home pravastatin not available) - (increased 12/19) PULM: - IS q4H while awake - Continuous pulse Ox per patient request only - Oxygen prn (typically only uses at HS) COPD: - Continue home Fluticasone/salmeterol 2 puffs BID- checked home inhaler today (12/29) and has 24 metered doses left - Continue home Incruse (LABA) 1 puff daily- has 7 doses left on home inhaler as of today (12/29) - Albuterol Q4H PRN - home Singulair 10 mg QHS - home Mucinex 600 mg BID prn - home Claritin 10mg daily - Recently completed steroid and abx course for COPD exacerbation - Had 6 minute walk test July 2023 --> ambulated 666 feet while pushing a wheelchair with no hypoxia - Patient encouraged to follow up with [facility] for further testing on discharge GHANSHYAM: - Home CPAP w/ 2L NC overnight - Does have home oxygen to use PRN GI/F/E/N: Diet: - Regular (carb controlled) diet - Nutrition Consult - Calorie counts - Daily MVI Bowel Regimen: - Colace 100 mg BID - Glycolax daily - Senna daily; will reduce to every other day due to limited opioids, several stools yesterday - Last BM 12/29 x3 GERD: - home Omeprazole 40 mg daily RENAL: - UOP 3.5L - Lasix on hold with hypotension Asymptomatic Bacteruria: - UA +LE on 12/16 and 12/21 - continues to deny any urinary sx ID: - Afebrile - COVID/Flu A-B/RSV negative (12/26) HEME: Hx of DVTs/PEs: - Takes Xarelto - resumed 12/29 - no NSAIDS ENDO: Admission BMI 48.8 T2DM: - Hgb A1C: 8.0 (12/16) - Glimepiride 4mg daily - Metformin XR 1000mg BID - Farxiga 10mg daily - held for OR - Lantus 60 Units QHS - SSI with carb coverage: 16.5 units in last 24 hours ERIC: - PT/OT Consult - Activity: Up with assistance- requires assistance to ambulate with walker - Elevate feet T/L/D: - PIV SHAFFER: 4.1 %TBSA full thickness scald shaffer to bilateral feet and left lower leg DOI: 12/17/23 OR: 12/20: Excision of shaffer to bilateral feet and left lower leg; placement of allograft 12/25: Excision of shaffer to bilateral feet and lower leg; placement of dermal substitute Dressings: - Mepilex Ag Dressing Schedule: - Change Q3-4 days PRN; dressings dry/intact this morning - Last change on 12/28; will see if can time up to day of discharge to SNF Consultants: Adult Internal Medicine Anesthesia Cardiology Nutrition PT/OT Oil Producer Speech Anticipate Discharge: Dermal substitute was placed on 12/25. Will need time for vascularization. Does not have a lot of support and might require a short stay in SNF before going home. Agreeable to transition to SNF and case management is aware, request sent last evening to [facility] in [place]. Pending decision Consultants may have been involved with the patient's care as indicated above. All recommendations were reviewed, discussed & approved by the primary burn team as indicated in the progress note. This note or partial portions of this note may have been created using a copy forward or copy pastefeature, but these portions have been verified and re- edited for accuracy and any portions not in need of editing or review are not being used to generate any component necessary for billing purposes. Elements necessary for proper CPT code selection are based only on elements of the visit that are truly unique to this visit. PATT Dioxn 12/31/2023 * Shante Martinez APRN-CNP - 12/30/2023 6:45 AM EDT DAILY PROGRESS NOTE Name: Kamini Irby Date:12/30/2023 Attending:Champ Waterman MD Hospital Day: 14 SUBJECTIVE: Reported issues and events over the last 24 hours: POD#4: Excision and BTM placement to bilateral feet - SBP 94- 124 overnight. IVF were D/C last night following 2L UOP - Awake and pleasant this morning - few scattered expiratory wheezes,occ moist cough - ambulating with walker and post op shoes - afebrile - glucose well controlled - Xarelto was held last evening/retimed, unclear why. Dose given this AM Case Management working on acceptance to [facility] [place], feel they can take her and would have a bed 12/29 After 12N - if this is finalized will plan to change dressing tomorrow prior to DC OBJECTIVE: Vitals: 12/30/23 0600 BP: Pulse: 73 Resp: 18 Temp: Temp (24hrs), Av.6 C (97.8 F), Min:36.2 C (97.2 F), Max:36.9 C (98.4 F) Vitals: 12/28/23 0830 12/29/23 0838 Weight: (!) 116.2 kg (!) 115.6 kg Weight Change Grams: -600 grams Weight Change Kg: -0.6 Kg Weight Change %: -0.52 % I/O: Intake/Output Summary (Last 24 hours) at 12/30/2023 0645 Last data filed at 12/30/2023 0500 Gross per 24 hour Intake 2421.82 ml Output 3400 ml Net -978.18 ml Physical Exam Vitals and nursing note reviewed. Constitutional: General: She is not in acute distress. Appearance: She is obese. She is not ill-appearing. HENT: Head: Normocephalic and atraumatic. Nose: No congestion. Mouth/Throat: Mouth: Mucous membranes are moist. Pharynx: Oropharynx is clear. No oropharyngeal exudate or posterior oropharyngeal erythema. Eyes: Extraocular Movements: Extraocular movements intact. Conjunctiva/sclera: Conjunctivae normal. Pupils: Pupils are equal, round, and reactive to light. Cardiovascular: Rate and Rhythm: Normal rate and regular rhythm. Heart sounds: Normal heart sounds. Comments: HR 60-70s Pulmonary: Effort: Pulmonary effort is normal. No respiratory distress. Breath sounds: Wheezing present. No rhonchi. Comments: + moist cough Abdominal: General: Bowel sounds are normal. There is no distension. Palpations: Abdomen is soft. Musculoskeletal: Cervical back: Neck supple. Right lower leg: Edema present. Left lower leg: Edema present. Comments: Minimal edema to bilateral feet Skin: General: Skin is warm and dry. Capillary Refill: Capillary refill takes less than 2 seconds. Comments: Dressings to bilateral feet C/D/I Neurological: General: No focal deficit present. Mental Status: She is alert and oriented to person, place, and time. Psychiatric: Mood and Affect: Mood normal. Behavior: Behavior normal. Diagnostic Studies: None Medications: Scheduled Meds: rivaroxaban 20 mg Oral Daily insulin lispro 0-20 Units Subcutaneous Before Meals & At Bedtime glimepiride 4 mg Oral Daily with breakfast metFORMIN 1,000 mg Oral BID senna-docusate 8.6 mg Oral Daily polyethylene glycol 17 g Oral Daily DSS 100 mg Oral BID NaCl 0.9% 2 mL Intravenous Q8H insulin glargine 60 Units Subcutaneous at Bedtime atorvastatin 40 mg Oral at Bedtime ALPRAZolam 1 mg Oral TID Fluticasone-Salmeterol(sensor) 2 Puff Inhalation Twice Daily Umeclidinium Cascade 1 Puff Inhalation QAM acetaminophen 650 mg Oral Q6H Multivitamin mineral supplement 1 Tablet Oral Daily Or multivitamin 15 mL Oral Daily atenolol 100 mg Oral Daily buPROPion 150 mg Oral BID loratadine 10 mg Oral Daily montelukast 10 mg Oral QHS omeprazole 40 mg Oral Daily pregabalin 300 mg Oral BID traZODone 50 mg Oral at Bedtime QUEtiapine 100 mg Oral QHS venlafaxine 150 mg Oral Daily PRN Meds:. guaiFENesin 600 mg Oral Q12H PRN NaCl 0.9% 2 mL Intravenous PRN NaCl 0.9% 5 mL Intravenous PRN NaCl 30 mL Intravenous PRN sterile water 10 mL Intravenous PRN NaCl 10 mL Intravenous PRN oxyCODONE (immediate release) 2.5 mg Oral Q4H PRN Or oxyCODONE (immediate release) 5 mg Oral Q4H PRN midazolam 2 mg Intravenous Dressing Change And midazolam 1 mg Intravenous Dressing Change fentaNYL 100 mcg Intravenous Dressing Change And fentaNYL 50 mcg Intravenous Dressing Change bisacodyl 10 mg Rectal Q72H PRN albuterol 2 Puff Inhalation Q4H PRN Patient Lines/Drains/Airways Status Active LDAs None ASSESSMENT: 58 y.o. with a principal problem of Full thickness burn of left foot who requires admission for Acute or unresolved changes in physiologic status and Wound care. PLAN: NEURO: Pain Control: - Scheduled Tylenol 650 mg Q6hrs - Oxycodone 2.5 mg or 5 mg Q4hrs prn ( x2 of 5mg in last 24h) Depression/Anxiety: - Continue home Venlafaxine 150 mg daily - Continue home Bupropion 150 mg BID - Continue home Xanax 1 mg TID Insomnia: - Continue home Trazodone 50 mg QHS - Continue home Seroquel 100 mg QHS Neuropathy: - Continue home Lyrica 300 mg BID Fibromyalgia, RA: - Home Voltaren Sodium - continue to hold while on Lovenox CV: - EKG: NSR, nonspecific intraventricular conduction delay (12/18) - ECHO: Normal, EF 63% (12/18) - DERICK >1 (12/18); no need for doppler - Negative dobutamine stress test in 2021 - During cardiology f/u in June 2023 was recommended this be repeated as she c/o chest pain. Patient never had repeat test done because she was scared. HTN: - Atenolol 100 mg daily (with hold parameters); may need dose reduction - Lisinopril 5 mg daily started 12/27; afterload reduction - on hold due to soft BPs - BPs 94/48 this AM; asymptomatic HFpEF: - Lasix 40 mg daily - on hold due to large UOP and hypotension Dyslipidemia: - Atorvastatin 40 mg QHS (home pravastatin not available) - (increased 12/19) PULM: - IS q4H while awake - Continuous pulse Ox - Oxygen prn COPD: - Continue home Fluticasone/salmeterol 2 puffs BID- checked home inhaler today (12/29) and has 24 metered doses left - Continue home Incruse (LABA) 1 puff daily- has 7 doses left on home inhaler as of today (12/29) - Albuterol Q4H PRN - home Singulair 10 mg QHS - home Mucinex 600 mg BID prn - home Claritin 10mg daily - Recently completed steroid and abx course for COPD exacerbation - Had 6 minute walk test July 2023 --> ambulated 666 feet while pushing a wheelchair with no hypoxia - Patient encouraged to follow up with [facility] for further testing on discharge GHANSHYAM: - Home CPAP w/ 2L NC overnight - Does have home oxygen to use PRN GI/F/E/N: Diet: - Regular (carb controlled) diet - Nutrition Consult - Calorie counts - Daily MVI Bowel Regimen: - Colace 100 mg BID - Glycolax daily - Senna daily - Last BM 12/28 GERD: - home Omeprazole 40 mg daily RENAL: - UOP 3.5L - Lasix on hold with hypotension Asymptomatic Bacteruria: - UA +LE on 12/16 and 12/21 - continues to deny any urinary sx ID: - Afebrile - COVID/Flu A-B/RSV negative (12/26) HEME: Hx of DVTs/PEs: - Takes Xarelto - resumed 12/28 however dose got re-timed and was not administered last evening. Administered this AM ENDO: Admission BMI 48.8 T2DM: - Hgb A1C: 8.0 (12/16) - Glimepiride 4mg daily - Metformin XR 1000mg BID - Farxiga 10mg daily - held for OR - Lantus 60 Units QHS - SSI with carb coverage: 9 units in last 24 hours ERIC: - PT/OT Consult - Activity: Up with assistance- requires assistance to ambulate with walker - Elevate feet T/L/D: - PIV SHAFFER: 4.1 %TBSA full thickness scald shaffer to bilateral feet and left lower leg DOI: 12/17/23 OR: 12/20: Excision of shaffer to bilateral feet and left lower leg; placement of allograft 12/25: Excision of shaffer to bilateral feet and lower leg; placement of dermal substitute Dressings: - Mepilex Ag Dressing Schedule: - Change Q3-4 days PRN; dressings dry/intact this morning - Last change on 12/28 Consultants: Adult Internal Medicine Anesthesia Cardiology Nutrition PT/OT Oil Producer Speech Anticipate Discharge: Dermal substitute was placed on 12/25. Will need time for vascularization. Does not have a lot of support and might require a short stay in SNF before going home. Agreeable to transition to SNF and case management is aware, request sent last evening to [facility] in [place]. Pending decision Consultants may have been involved with the patient's care as indicated above. All recommendations were reviewed, discussed & approved by the primary burn team as indicated in the progress note. This note or partial portions of this note may have been created using a copy forward or copy pastefeature, but these portions have been verified and re- edited for accuracy and any portions not in need of editing or review are not being used to generate any component necessary for billing purposes. Elements necessary for proper CPT code selection are based only on elements of the visit that are truly unique to this visit. Shante Martinez, COMPUTER APPLICATION DEVELOPER-REGISTER REPAIRER 12/30/2023 * Champ Waterman MD - 12/29/2023 9:17 AM EDT Burn Attending note I was present during tobin or critical portions of service provided by the resident/SARINA/MUKESH and participated in multidisciplinary rounds at the patient bedside. I confirmed pertinent physical and related findings. I reviewed all data including investigations. I directed assessment and plan of care. See today's note from resident/SARINA/MUKESH. This note or partial portions of this note may have been created using a copy forward or copy pastefeature, but these portions have been verified and re- edited for accuracy and any portions not in need of editing or review are not being used to generate any component necessary for billing purposes. Elements necessary for proper CPT code selection are based only on elements of the visit that are truly unique to this visit. Consultants may have been involved with the patient's care, however all recommendations were reviewed and approved by me as indicated in the progress note. Seen during rounds. CXR clear, Resp array negative. AF, VSS. Gen: nad, alert Dressings changed early today. BTM adherent. Mepilex AG, cuti/outers Pain control. Tylenol, oxycodone, lyrica. Home meds Hold lasix, lisinopril due to SBP. Continue atenolol, statin. 2LNC, wean. IS Diet as tolerated. Bowel regimen. PPI PT/OT, ambulate Restart Xarelto. D/c lovenox Glucose control. Dressings. Mepilex AG. Change q3-4 days. Next on Tuesday under PO. Will need future delamination and STSG over neodermis once it is vascularized to both feet. SW-Work on dispo to SNF placement. Champ Waterman MD 12/29/2023 * Bri Shukla PA-C - 12/29/2023 6:33 AM EDT DAILY PROGRESS NOTE Name: Kamini Irby Date:12/29/2023 Attending:Champ Waterman MD Hospital Day: 13 SUBJECTIVE: Reported issues and events over the last 24 hours: None POD#3: Excision and BTM placement to bilateral feet - No events overnight - On 2L O2 overnight - RFA & CXR yesterday negative - Glucose 89-172 in the last 24 hours - Net -1,890 in the last 24 hours - Afebrile; Tmax 37.7 - Patient drowsy and hypotensive this AM, BP 87/47, Glucose 159; Home Lasix d/c'd and Lisinopril d/c'd, started LR @ 75 mL/hr - RFP & CBC ordered; WBC increased to 11.7 (8.3), Hgb/Hct 9.5/30.4 (11.5), BUN/Creatinine 21/0.60 (22/0.54) - Hold parameters added for home Atenolol - Repeat BP now 117/54 - Had outer dressing change this morning; BTM intact, no large hematomas or purulent drainage. - D/c'd Lovenox after AM dose, will transition back to home Xarelto this evening - In to see patient; and daughter at bedside, patient awake and oriented, BP 100/56, LR still running at 75 mL/hr - Discussed dressing care Q3-4 days - Patient inquiring about potential d/c to SNF soon, awaiting update from [facility] - Patient reports ongoing cough, but denies worsening of symptoms OBJECTIVE: Vitals: 12/29/23 0600 BP: Pulse: 69 Resp: 19 Temp: Temp (24hrs), Av.2 C (98.9 F), Min:36.8 C (98.2 F), Max:37.7 C (99.8 F) Vitals: 12/27/23 0800 12/28/23 0830 Weight: (!) 116 kg (!) 116.2 kg Weight Change Grams: 200 grams Weight Change K.2 Kg Weight Change %: 0.17 % I/O: Intake/Output Summary (Last 24 hours) at 12/29/2023 0633 Last data filed at 12/29/2023 0500 Gross per 24 hour Intake 2160 ml Output 4050 ml Net -1890 ml UOP: 4,050 cc UOP Physical Exam Vitals and nursing note reviewed. Constitutional: General: She is not in acute distress. Appearance: She is obese. She is not ill-appearing. HENT: Head: Normocephalic and atraumatic. Mouth/Throat: Mouth: Mucous membranes are moist. Pharynx: Oropharynx is clear. No oropharyngeal exudate or posterior oropharyngeal erythema. Eyes: Extraocular Movements: Extraocular movements intact. Conjunctiva/sclera: Conjunctivae normal. Cardiovascular: Rate and Rhythm: Normal rate and regular rhythm. Heart sounds: Normal heart sounds. Pulmonary: Effort: Pulmonary effort is normal. No respiratory distress. Breath sounds: Wheezing and rhonchi present. Abdominal: General: Bowel sounds are normal. Palpations: Abdomen is soft. Musculoskeletal: Cervical back: Neck supple. Skin: General: Skin is warm and dry. Capillary Refill: Capillary refill takes less than 2 seconds. Comments: Dressings to bilateral feet C/D/I Neurological: General: No focal deficit present. Mental Status: She is alert and oriented to person, place, and time. Psychiatric: Mood and Affect: Mood normal. Behavior: Behavior normal. Diagnostic Studies: None Medications: Scheduled Meds: lisinopril 5 mg Oral Daily insulin lispro 0-20 Units Subcutaneous Before Meals & At Bedtime glimepiride 4 mg Oral Daily with breakfast metFORMIN 1,000 mg Oral BID senna-docusate 8.6 mg Oral Daily polyethylene glycol 17 g Oral Daily furosemide 40 mg Oral Daily DSS 100 mg Oral BID diphenhydrAMINE 25 mg Oral BID NaCl 0.9% 2 mL Intravenous Q8H insulin glargine 60 Units Subcutaneous at Bedtime enoxaparin 40 mg Subcutaneous Q12H EXACT atorvastatin 40 mg Oral at Bedtime ALPRAZolam 1 mg Oral TID Fluticasone-Salmeterol(sensor) 2 Puff Inhalation Twice Daily Umeclidinium Cascade 1 Puff Inhalation QAM acetaminophen 650 mg Oral Q6H Multivitamin mineral supplement 1 Tablet Oral Daily Or multivitamin 15 mL Oral Daily atenolol 100 mg Oral Daily buPROPion 150 mg Oral BID loratadine 10 mg Oral Daily montelukast 10 mg Oral QHS omeprazole 40 mg Oral Daily pregabalin 300 mg Oral BID traZODone 50 mg Oral at Bedtime QUEtiapine 100 mg Oral QHS venlafaxine 150 mg Oral Daily Continuous Infusions: PRN Meds:. guaiFENesin 600 mg Oral Q12H PRN NaCl 0.9% 2 mL Intravenous PRN NaCl 0.9% 5 mL Intravenous PRN NaCl 30 mL Intravenous PRN sterile water 10 mL Intravenous PRN NaCl 10 mL Intravenous PRN oxyCODONE (immediate release) 2.5 mg Oral Q4H PRN Or oxyCODONE (immediate release) 5 mg Oral Q4H PRN midazolam 2 mg Intravenous Dressing Change And midazolam 1 mg Intravenous Dressing Change fentaNYL 100 mcg Intravenous Dressing Change And fentaNYL 50 mcg Intravenous Dressing Change bisacodyl 10 mg Rectal Q72H PRN albuterol 2 Puff Inhalation Q4H PRN Patient Lines/Drains/Airways Status Active LDAs None ASSESSMENT: 58 y.o. with a principal problem of Partial thickness burn of right foot, initial encounter who requires admission for Acute or unresolved changes in physiologic status and Wound care. PLAN: NEURO: Pain Control: - Scheduled Tylenol 650 mg Q6hrs - Oxycodone 2.5 mg or 5 mg Q4hrs prn (x1 of the 2.5 mg and x2 of 5mg in last 24h) Depression/Anxiety: - Continue home Venlafaxine 150 mg daily - Continue home Bupropion 150 mg BID - Continue home Xanax 1 mg TID Insomnia: - Continue home Trazodone 50 mg QHS - Continue home Seroquel 100 mg QHS Neuropathy: - Continue home Lyrica 300 mg BID Fibromyalgia, RA: - Home Voltaren Sodium - held for surgery CV: - EKG: NSR, nonspecific intraventricular conduction delay (12/18) - ECHO: Normal, EF 63% (12/18) - DERICK >1 (12/18); no need for doppler - Negative dobutamine stress test in 2021 - During cardiology f/u in June 2023 was recommended this be repeated as she c/o chest pain. Patient never had repeat test done because she was scared. HTN: - Atenolol 100 mg daily (with hold parameters) - Lisinopril 5 mg daily started 12/27; afterload reduction - d/c'd this morning due to hypotension - Will monitor blood pressure closely - Systolic BP: 116-152 in the last 24 hours HFpEF: - Lasix 40 mg daily - d/c'd this AM due to hypotension Dyslipidemia: - Atorvastatin 40 mg QHS (home pravastatin not available) - (increased 12/19) PULM: - IS q4H while awake - Continuous pulse Ox - Oxygen prn COPD: - Continue home Fluticasone/salmeterol 2 puffs BID - Continue home Incruse 1 puff daily - Albuterol Q4H PRN - Continue home Singulair 10 mg QHS - Continue home Mucinex 1200 mg BID - Continue home Claritin 10mg daily - Recently completed steroid and abx course for COPD exacerbation - Had 6 minute walk test July 2023 --> ambulated 666 feet while pushing a wheelchair with no hypoxia - Patient encouraged to follow up with [facility] for further testing on discharge GAHNSHYAM: - Home CPAP w/ 2L NC overnight - Does have home oxygen to use PRN Cough: - CXR with no consolidation (12/26) - COVID/Flu A-B/RSV negative (12/26) - Mucinex prn GI/F/E/N: Diet: - Regular (carb controlled) diet - Nutrition Consult - Calorie counts - Daily MVI Bowel Regimen: - Colace 100 mg BID - Glycolax daily - Senna daily - Last BM 12/25 x2 GERD: - Omeprazole 40 mg daily - Monitor symptoms RENAL: - Strict I/Os - BUN/Cr: 22/0.54 (12/25) Asymptomatic Bacteruria: - UA +LE on 12/16 and 12/21 - Denies any urinary sx ID: - Afebrile - Tetanus UTD 2022 - COVID/Flu A-B/RSV negative (12/26) Cellulitis: - Clindamycin IV 600 mg Q8h (12/19-12/21) HEME: Hx of DVTs/PEs: - Takes Xarelto at home for prevention; restarted today - States allergy to Lovenox and Heparin --> hives - Requires pre-treatment with Benadryl - Lovenox 40 mg BID -d/c'd today, resume home Xarelto - Anti-Xa: 0.22 (12/27) ENDO: Admission BMI 48.8 T2DM: - Hgb A1C: 8.0 (12/16) - Glimepiride 4mg daily - Metformin XR 1000mg BID - Farxiga 10mg daily - held for OR - Lantus 60 Units QHS - BGs: 89-172 in the last 24 hours - SSI with carb coverage: 13 units in last 24 hours ERIC: - PT/OT Consult - Activity: Up with assistance - Elevate feet T/L/D: - PIV SHAFFER: 4.1 %TBSA full thickness scald shaffer to bilateral feet and left lower leg DOI: 12/17/23 OR: 12/20: Excision of shaffer to bilateral feet and left lower leg; placement of allograft 12/25: Excision of shaffer to bilateral feet and lower leg; placement of dermal substitute Dressings: - Mepilex Ag Dressing Schedule: - Change Q3-4 days PRN - Last change on 12/28 Consultants: Adult Internal Medicine Anesthesia Cardiology Nutrition PT/OT Oil Producer Speech Anticipate Discharge: Dermal substitute was placed on 12/25. Will need time for vascularization. Does not have a lot of support and might require a short stay in SNF before going home. Agreeable to transition to SNF and case management is aware. Consultants may have been involved with the patient's care as indicated above. All recommendations were reviewed, discussed & approved by the primary burn team as indicated in the progress note. This note or partial portions of this note may have been created using a copy forward or copy pastefeature, but these portions have been verified and re- edited for accuracy and any portions not in need of editing or review are not being used to generate any component necessary for billing purposes. Elements necessary for proper CPT code selection are based only on elements of the visit that are truly unique to this visit. Bri Shukla PA-C 12/29/2023 * Magdalena Perez PA-C - 12/28/2023 6:47 AM EDT DAILY PROGRESS NOTE Name: Kamini Irby Date:12/28/2023 Attending:Champ Waterman MD Hospital Day: 12 SUBJECTIVE: Reported issues and events over the last 24 hours: None POD#2 Awake and alert Reporting pain in her feet/ankles Increased with ambulation/activity Feels better this AM Concerned about low grade temp Cough --> had been taking Robitussin Asking for Mucinex Also reporting chills and body aches Feels like she is getting sick + PND and sore throat Denies any sinus pain/headache CXR done and no consolidation COVID/Flu A-B/RSV checked and negative Appetite good Ambulated in the room and out to the nurses station yesterday Denies any chest pain or SOB Denies any abdominal pain or N/V Working on placement to SNF OBJECTIVE: Vitals: 12/28/23 1617 BP: (!) 152/69 Pulse: 76 Resp: 18 Temp: 37.7 C (99.8 F) Temp (24hrs), Av.3 C (99.1 F), Min:36.8 C (98.2 F), Max:37.9 C (100.2 F) Vitals: 12/27/23 0800 12/28/23 0830 Weight: (!) 116 kg (!) 116.2 kg Weight Change Grams: 200 grams Weight Change K.2 Kg Weight Change %: 0.17 % I/O: Intake/Output Summary (Last 24 hours) at 12/28/2023 1647 Last data filed at 12/28/2023 1400 Gross per 24 hour Intake 1860 ml Output 2900 ml Net -1040 ml UOP: 1.85 cc/kg/hr Physical Exam Vitals and nursing note reviewed. Constitutional: General: She is not in acute distress. Appearance: She is obese. She is not ill-appearing. HENT: Head: Normocephalic and atraumatic. Mouth/Throat: Mouth: Mucous membranes are moist. Pharynx: Oropharynx is clear. No oropharyngeal exudate or posterior oropharyngeal erythema. Eyes: Extraocular Movements: Extraocular movements intact. Conjunctiva/sclera: Conjunctivae normal. Cardiovascular: Rate and Rhythm: Normal rate and regular rhythm. Heart sounds: Normal heart sounds. Pulmonary: Effort: Pulmonary effort is normal. No respiratory distress. Breath sounds: Normal breath sounds. Abdominal: General: Bowel sounds are normal. Palpations: Abdomen is soft. Musculoskeletal: Cervical back: Neck supple. Skin: General: Skin is warm and dry. Capillary Refill: Capillary refill takes less than 2 seconds. Comments: Dressings to bilateral feet C/D/I Neurological: General: No focal deficit present. Mental Status: She is alert and oriented to person, place, and time. Psychiatric: Mood and Affect: Mood normal. Behavior: Behavior normal. Diagnostic Studies: None Medications: Scheduled Meds: lisinopril 5 mg Oral Daily insulin lispro 0-20 Units Subcutaneous Before Meals & At Bedtime glimepiride 4 mg Oral Daily with breakfast metFORMIN 1,000 mg Oral BID senna-docusate 8.6 mg Oral Daily polyethylene glycol 17 g Oral Daily furosemide 40 mg Oral Daily DSS 100 mg Oral BID diphenhydrAMINE 25 mg Oral BID NaCl 0.9% 2 mL Intravenous Q8H insulin glargine 60 Units Subcutaneous at Bedtime enoxaparin 40 mg Subcutaneous Q12H EXACT atorvastatin 40 mg Oral at Bedtime ALPRAZolam 1 mg Oral TID Fluticasone-Salmeterol(sensor) 2 Puff Inhalation Twice Daily Umeclidinium Cascade 1 Puff Inhalation QAM acetaminophen 650 mg Oral Q6H Multivitamin mineral supplement 1 Tablet Oral Daily Or multivitamin 15 mL Oral Daily atenolol 100 mg Oral Daily buPROPion 150 mg Oral BID loratadine 10 mg Oral Daily montelukast 10 mg Oral QHS omeprazole 40 mg Oral Daily pregabalin 300 mg Oral BID traZODone 50 mg Oral at Bedtime QUEtiapine 100 mg Oral QHS venlafaxine 150 mg Oral Daily Continuous Infusions: PRN Meds:. NaCl 0.9% 2 mL Intravenous PRN NaCl 0.9% 5 mL Intravenous PRN NaCl 30 mL Intravenous PRN sterile water 10 mL Intravenous PRN NaCl 10 mL Intravenous PRN oxyCODONE (immediate release) 2.5 mg Oral Q4H PRN Or oxyCODONE (immediate release) 5 mg Oral Q4H PRN midazolam 2 mg Intravenous Dressing Change And midazolam 1 mg Intravenous Dressing Change fentaNYL 100 mcg Intravenous Dressing Change And fentaNYL 50 mcg Intravenous Dressing Change bisacodyl 10 mg Rectal Q72H PRN albuterol 2 Puff Inhalation Q4H PRN Patient Lines/Drains/Airways Status Active LDAs None ASSESSMENT: 58 y.o. with a principal problem of Partial thickness burn of right foot, initial encounter who requires admission for Acute or unresolved changes in physiologic status and Wound care. PLAN: NEURO: Pain Control: - Scheduled Tylenol 650 mg Q6hrs - Oxycodone 2.5 mg or 5 mg Q4hrs prn (x5 of 5mg in last 24h) Depression/Anxiety: - Continue home Venlafaxine 150 mg daily - Continue home Bupropion 150 mg BID - Continue home Xanax 1 mg TID Insomnia: - Continue home Trazodone 50 mg QHS - Continue home Seroquel 100 mg QHS Neuropathy: - Continue home Lyrica 300 mg BID Fibromyalgia, RA: - Home Voltaren Sodium - held for surgery CV: - EKG: NSR, nonspecific intraventricular conduction delay (12/18) - ECHO: Normal, EF 63% (12/18) - DERICK >1 (12/18); no need for doppler - Negative dobutamine stress test in 2021 - During cardiology f/u in June 2023 was recommended this be repeated as she c/o chest pain. Patient never had repeat test done because she was scared. HTN: - Atenolol 100 mg daily - Started Lisinopril 5 mg daily to start 12/27 afterload reduction - Will monitor blood pressure closely HFpEF: - Lasix 40 mg daily Dyslipidemia: - Atorvastatin 40 mg QHS (home pravastatin not available) - (increased 12/19) PULM: - IS q4H while awake - Continuous pulse Ox - Oxygen prn COPD: - Continue home Fluticasone/salmeterol 2 puffs BID - Continue home Incruse 1 puff daily - Albuterol Q4H PRN - Continue home Singulair 10 mg QHS - Continue home Mucinex 1200 mg BID - Continue home Claritin 10mg daily - Recently completed steroid and abx course for COPD exacerbation - Had 6 minute walk test July 2023 --> ambulated 666 feet while pushing a wheelchair with no hypoxia - Patient encouraged to follow up with [facility] for further testing on discharge GHANSHYAM: - Home CPAP w/ 2L NC overnight - Does have home oxygen to use PRN Cough: - CXR with no consolidation (12/26) - COVID/Flu A-B/RSV negative (12/26) - Mucinex prn GI/F/E/N: Diet: - Regular (carb controlled) diet - Nutrition Consult - Calorie counts - Daily MVI Bowel Regimen: - Colace 100 mg BID - Glycolax daily - Senna daily - Last BM 12/25 x2 GERD: - Omeprazole 40 mg daily - Monitor symptoms RENAL: - Strict I/Os - BUN/Cr: 22/0.54 (12/25) Asymptomatic Bacteruria: - UA +LE on 12/16 and 12/21 - Denies any urinary sx ID: - Afebrile - Tetanus UTD 2022 - COVID/Flu A-B/RSV negative (12/26) Cellulitis: - Clindamycin IV 600 mg Q8h (12/19-12/21) HEME: Hx of DVTs/PEs: - Takes Xarelto at home for prevention; on hold for surgery, plan to restart after dressing on POD#4 if no hematomas - States allergy to Lovenox and Heparin --> hives - Requires pre-treatment with Benadryl - Lovenox 40 mg BID - Anti-Xa: 0.22 (12/27) ENDO: Admission BMI 48.8 T2DM: - Hgb A1C: 8.0 (12/16) - Glimepiride 4mg daily - Metformin XR 1000mg BID - Farxiga 10mg daily - held for OR - Lantus 60 Units QHS - BGs: 136-158 - SSI with carb coverage: 12 units in last 24 hours ERIC: - PT/OT Consult - Activity: Up with assistance - Elevate feet T/L/D: - PIV SHAFFER: 4.1 %TBSA full thickness scald shaffer to bilateral feet and left lower leg DOI: 12/17/23 OR: 12/20: Excision of shaffer to bilateral feet and left lower leg; placement of allograft 12/25: Excision of shaffer to bilateral feet and lower leg; placement of dermal substitute Dressings: - Mepilex Ag - Next dressing POD#4 Consultants: Adult Internal Medicine Anesthesia Cardiology Nutrition PT/OT Oil Producer Speech Anticipate Discharge: Dermal substitute was placed on 12/25. Will need time for vascularization. Does not have a lot of support and might require a short stay in SNF before going home. Agreeable to transition to SNF and case management is aware. Consultants may have been involved with the patient's care as indicated above. All recommendations were reviewed, discussed & approved by the primary burn team as indicated in the progress note. This note or partial portions of this note may have been created using a copy forward or copy pastefeature, but these portions have been verified and re- edited for accuracy and any portions not in need of editing or review are not being used to generate any component necessary for billing purposes. Elements necessary for proper CPT code selection are based only on elements of the visit that are truly unique to this visit. Magdalena Perez PA-C 12/28/2023 * Magdalena Perez PA-C - 12/27/2023 6:26 AM EDT DAILY PROGRESS NOTE Name: Kamini Irby Date:12/27/2023 Attending:Champ Waterman MD Hospital Day: 11 SUBJECTIVE: Reported issues and events over the last 24 hours: No issues post op POD#1 Awake and alert this AM Denies any significant pain Slept well last night Looking forward to getting out of bed today Appetite is good Denies any chest pain or SOB Denies any abdominal pain or N/V Dicussed placement of BTM yesterday Reviewed the need to allow to vascularize prior to STSG Does not have support at home Agreeable to being placed in SNF Case management notified OBJECTIVE: Vitals: 12/27/23 0600 BP: Pulse: 57 Resp: 13 Temp: Temp (24hrs), Av.7 C (98 F), Min:36.1 C (97 F), Max:37 C (98.6 F) Vitals: 12/25/23 0921 12/26/23 0830 Weight: (!) 116.9 kg (!) 116 kg Weight Change Grams: -900 grams Weight Change Kg: -0.9 Kg Weight Change %: -0.77 % I/O: Intake/Output Summary (Last 24 hours) at 12/27/2023 0626 Last data filed at 12/26/2023 2200 Gross per 24 hour Intake 1112.17 ml Output 2025 ml Net -912.83 ml UOP: 0.69 cc/kg/hr Physical Exam Vitals and nursing note reviewed. Constitutional: General: She is not in acute distress. Appearance: She is obese. She is not ill-appearing. HENT: Head: Normocephalic and atraumatic. Eyes: Extraocular Movements: Extraocular movements intact. Conjunctiva/sclera: Conjunctivae normal. Cardiovascular: Rate and Rhythm: Normal rate and regular rhythm. Heart sounds: Normal heart sounds. Pulmonary: Effort: Pulmonary effort is normal. No respiratory distress. Breath sounds: Normal breath sounds. Abdominal: General: Bowel sounds are normal. Palpations: Abdomen is soft. Musculoskeletal: Cervical back: Neck supple. Skin: General: Skin is warm and dry. Capillary Refill: Capillary refill takes less than 2 seconds. Comments: Dressings to bilateral feet C/D/I Neurological: General: No focal deficit present. Mental Status: She is alert and oriented to person, place, and time. Psychiatric: Mood and Affect: Mood normal. Behavior: Behavior normal. Diagnostic Studies: None Medications: Scheduled Meds: senna-docusate 8.6 mg Oral Daily polyethylene glycol 17 g Oral Daily furosemide 40 mg Oral Daily DSS 100 mg Oral BID diphenhydrAMINE 25 mg Oral BID NaCl 0.9% 2 mL Intravenous Q8H insulin glargine 60 Units Subcutaneous at Bedtime enoxaparin 40 mg Subcutaneous Q12H EXACT tamsulosin 0.4 mg Oral Daily atorvastatin 40 mg Oral at Bedtime ALPRAZolam 1 mg Oral TID Fluticasone-Salmeterol(sensor) 2 Puff Inhalation Twice Daily Umeclidinium Cascade 1 Puff Inhalation QAM acetaminophen 650 mg Oral Q6H Multivitamin mineral supplement 1 Tablet Oral Daily Or multivitamin 15 mL Oral Daily insulin lispro 0-10 Units Subcutaneous Before Meals & At Bedtime atenolol 100 mg Oral Daily buPROPion 150 mg Oral BID loratadine 10 mg Oral Daily montelukast 10 mg Oral QHS omeprazole 40 mg Oral Daily pregabalin 300 mg Oral BID traZODone 50 mg Oral at Bedtime QUEtiapine 100 mg Oral QHS venlafaxine 150 mg Oral Daily Continuous Infusions: PRN Meds:. NaCl 0.9% 2 mL Intravenous PRN NaCl 0.9% 5 mL Intravenous PRN NaCl 30 mL Intravenous PRN sterile water 10 mL Intravenous PRN NaCl 10 mL Intravenous PRN oxyCODONE (immediate release) 2.5 mg Oral Q4H PRN Or oxyCODONE (immediate release) 5 mg Oral Q4H PRN midazolam 2 mg Intravenous Dressing Change And midazolam 1 mg Intravenous Dressing Change fentaNYL 100 mcg Intravenous Dressing Change And fentaNYL 50 mcg Intravenous Dressing Change bisacodyl 10 mg Rectal Q72H PRN albuterol 2 Puff Inhalation Q4H PRN Patient Lines/Drains/Airways Status Active LDAs None ASSESSMENT: 58 y.o. with a principal problem of Partial thickness burn of right foot, initial encounter who requires admission for Acute or unresolved changes in physiologic status and Wound care. PLAN: NEURO: Pain Control: - Scheduled Tylenol 650 mg Q6hrs - Oxycodone 2.5 mg or 5 mg Q4hrs prn (x1 of 5mg in last 24h) Depression/Anxiety: - Continue home Venlafaxine 150 mg daily - Continue home Bupropion 150 mg BID - Continue home Xanax 1 mg TID Insomnia: - Continue home Trazodone 50 mg QHS - Continue home Seroquel 100 mg QHS Neuropathy: - Continue home Lyrica 300 mg BID Fibromyalgia, RA: - Home Voltaren Sodium - held for surgery CV: - EKG: NSR, nonspecific intraventricular conduction delay (12/18) - ECHO: Normal, EF 63% (12/18) - DERICK >1 (12/18); no need for doppler - Negative dobutamine stress test in 2021 - During cardiology f/u in June 2023 was recommended this be repeated as she c/o chest pain. Patient never had repeat test done because she was scared. HTN: - Atenolol 100 mg daily - Started on Lisinopril 10 mg daily to start 12/27 afterload reduction - Will monitor blood pressure closely HFpEF: - Lasix 40 mg daily Dyslipidemia: - Atorvastatin 40 mg QHS (home pravastatin not available) - (increased 12/19) PULM: - IS q4H while awake - Continuous pulse Ox - Oxygen prn COPD: - Continue home Fluticasone/salmeterol 2 puffs BID - Continue home Incruse 1 puff daily - Albuterol Q4H PRN - Continue home Singulair 10 mg QHS - Continue home Mucinex 1200 mg BID - Continue home Claritin 10mg daily - Recently completed steroid and abx course for COPD exacerbation - Had 6 minute walk test July 2023 --> ambulated 666 feet while pushing a wheelchair with no hypoxia - Patient encouraged to follow up with [facility] for further testing on discharge GHANSHYAM: - Home CPAP w/ 2L nC overnight - Does have home oxygen to use PRN GI/F/E/N: Diet: - Regular (carb controlled) diet - Nutrition Consult - Calorie counts - Daily MVI Bowel Regimen: - Colace 100 mg BID - Glycolax daily - Senna daily - Last BM 12/25 x2 GERD: - Omeprazole 40 mg daily - Monitor symptoms RENAL: - Strict I/Os - BUN/Cr: 22/0.54 (12/25) Asymptomatic Bacteruria: - UA +LE on 12/16 and 12/21 - Denies any urinary sx ID: - Afebrile - Tetanus UTD 2022 - Procal 0.12 (12/21) Cellulitis: - Clindamycin IV 600 mg Q8h (12/19-12/21) HEME: - Hgb/Hct: 11.5/37.0 (12/25) - Type & Screen (12/24) Hx of DVTs/PEs: - Takes Xarelto at home for prevention; on hold for surgery, plan to restart after dressing on POD#4 if no hematomas - States allergy to Lovenox and Heparin --> hives - Requires pre-treatment with Benadryl - Lovenox 40 mg BID - Anti-Xa: 0.17 (12/22) - Repeat Anti-Xa post-op (12/27 @ 1300) ENDO: Admission BMI 48.8 T2DM: - Hgb A1C: 8.0 (12/16) - Glimepiride 4mg daily - Metformin XR 1000mg BID - Farxiga 10mg daily - held for OR - Lantus 60 Units QHS - BGs: 157-228 - SSI with carb coverage: 12.5 units in last 24 hours ERIC: - PT/OT Consult - Activity: Up with assistance - Elevate feet T/L/D: - PIV SHAFFER: 4.1 %TBSA full thickness scald shaffer to bilateral feet and left lower leg DOI: 12/17/23 OR: 9/18: Excision of shaffer to bilateral feet and left lower leg; placement of allograft 12/25: Excision of shaffer to bilateral feet and lower leg, placement of dermal substitute Dressings: - Mepilex Ag - Next dressing POD#4 Consultants: Adult Internal Medicine Anesthesia Cardiology Nutrition PT/OT Oil Producer Speech Anticipate Discharge: Dermal substitute was placed on 12/25. Will need time for vascularization. Does not have a lot of support and might require a short stay in SNF before going home. Agreeable to transition to SNF and case management is aware. Consultants may have been involved with the patient's care as indicated above. All recommendations were reviewed, discussed & approved by the primary burn team as indicated in the progress note. This note or partial portions of this note may have been created using a copy forward or copy pastefeature, but these portions have been verified and re- edited for accuracy and any portions not in need of editing or review are not being used to generate any component necessary for billing purposes. Elements necessary for proper CPT code selection are based only on elements of the visit that are truly unique to this visit. Magdalena Perez PA-C 12/27/2023 * Lee Ann Jay PA-C - 12/26/2023 9:57 PM EDT [employer] DIRECT[employer] NOTE Burn Post Operative Check Name: Kamini Irby Date:12/26/2023 Attending:Champ Waterman MD Hospital Day: 10 SUBJECTIVE: Kamini Irby is a 58 y.o. female who is status post Surgical preparation of bilateral feet 885 cm2 Application of synthetic dermal skin substitute (PolyNovo BTM) to bilateral feet 885 cm2 Patient was able to tolerate p.o. intake since surgery and she has voided. Pain has been controlled. No concerns or issues at this time. Her pain control is good. OBJECTIVE: Exam: General: Patient appears healthy, well developed, well nourished, in no acute distress Chest: breath sounds are clear to auscultation bilaterally without rales, rhonchi, or wheezes Cardiac: regular rate, regular rhythm Skin: pink, warm, well perfused, dressings are intact without significant drainage Vitals: 12/26/23 1921 BP: 95/44 Pulse: 65 Resp: 16 Temp: 36.7 C (98.1 F) Intake/Output Data: Intake/Output Summary (Last 24 hours) at 12/26/20232156 Last data filed at 12/26/2023 1900 Gross per 24 hour Intake 1200.67 ml Output 3300 ml Net -2099.33 ml LDA's: Patient Lines/Drains/Airways Status Active LDAs None Labs: Glucose - 228 Medications: Scheduled Medication: [START ON 12/27/2023] senna-docusate 8.6 mg Oral Daily [START ON 12/27/2023] polyethylene glycol 17 g Oral Daily [START ON 12/27/2023] furosemide 40 mg Oral Daily [START ON 12/27/2023] DSS 100 mg Oral BID [START ON 12/27/2023] diphenhydrAMINE 25 mg Oral BID NaCl 0.9% 2 mL Intravenous Q8H insulin glargine 60 Units Subcutaneous at Bedtime [START ON 12/27/2023] enoxaparin 40 mg Subcutaneous Q12H EXACT guaiFENesin 400 mg Oral Q4H EXACT tamsulosin 0.4 mg Oral Daily atorvastatin 40 mg Oral at Bedtime ALPRAZolam 1 mg Oral TID Fluticasone-Salmeterol(sensor) 2 Puff Inhalation Twice Daily Umeclidinium Cascade 1 Puff Inhalation QAM acetaminophen 650 mg Oral Q6H Multivitamin mineral supplement 1 Tablet Oral Daily Or multivitamin 15 mL Oral Daily insulin lispro 0-10 Units Subcutaneous Before Meals & At Bedtime atenolol 100 mg Oral Daily buPROPion 150 mg Oral BID loratadine 10 mg Oral Daily montelukast 10 mg Oral QHS omeprazole 40 mg Oral Daily pregabalin 300 mg Oral BID traZODone 50 mg Oral at Bedtime QUEtiapine 100 mg Oral QHS venlafaxine 150 mg Oral Daily Continuous infusions: Dextrose 5% Lactated Ringers 75 mL/hr at 12/26/23 1400 PRN Medications: NaCl 0.9% 2 mL Intravenous PRN NaCl 0.9% 5 mL Intravenous PRN NaCl 30 mL Intravenous PRN sterile water 10 mL Intravenous PRN NaCl 10 mL Intravenous PRN oxyCODONE (immediate release) 2.5 mg Oral Q4H PRN Or oxyCODONE (immediate release) 5 mg Oral Q4H PRN midazolam 2 mg Intravenous Dressing Change And midazolam 1 mg Intravenous Dressing Change fentaNYL 100 mcg Intravenous Dressing Change And fentaNYL 50 mcg Intravenous Dressing Change bisacodyl 10 mg Rectal Q72H PRN albuterol 2 Puff Inhalation Q4H PRN ASSESSMENT: Kamini Irby is a 58 y.o. female with a PMH significant for DM, neuropathy, HTN, CHF, hx of DVT who is status post Surgical preparation of bilateral feet 885 cm2 Application of synthetic dermal skin substitute (PolyNovo BTM) to bilateral feet 885 cm2 She is doing well since OR PLAN: - Dressings - Mepilex AG, cuticerin to the toes, and kerlix, allen were applied. - Dressing change down to BTM on POD4 - Pain control - Elevate Feet - Can resume out of bed - PT on POD1 - DVT prophylaxis 9 AM - DC Clinda - SL with good PO intake Lee Ann Jay PA-C [employer] Pager: [phone] * Magdalena Perez PA-C - 12/26/2023 7:11 AM EDT DAILY PROGRESS NOTE Name: Kamini Irby Date:12/26/2023 Attending:Jose Sin MD Hospital Day: 10 SUBJECTIVE: Reported issues and events over the last 24 hours: None POD#5 Sleeping okay Pain controlled Ambulated 1 lap around unit this AM using wheeled walker + cough - present for the last 6 weeks Denies any SOB or chest pain Denies any abdominal pain or N/V Plan for OR today --> STSG vs Dermal substitute Type and screen up to date Hgb/Hct 11.5/37.0 40 units of Lantus last night Clears this AM until noon Blood sugars Q4hrs --> 150-180 this AM Will start D5LR @ 75 cc/hr at noon OBJECTIVE: Vitals: 12/26/23 0600 BP: 97/50 Pulse: 61 Resp: 19 Temp: 36.7 C (98.1 F) Temp (24hrs), Av.4 C (97.5 F), Min:36.1 C (97 F), Max:36.8 C (98.2 F) Vitals: 12/23/23 1114 12/25/23 0921 Weight: (!) 116.6 kg (!) 116.9 kg Weight Change Grams: 300 grams Weight Change K.3 Kg Weight Change %: 0.26 % I/O: Intake/Output Summary (Last 24 hours) at 12/26/2023 0711 Last data filed at 12/26/2023 0626 Gross per 24 hour Intake 1078.42 ml Output 4150 ml Net -3071.58 ml UOP: 1.48 cc/kg/hr Physical Exam Vitals and nursing note reviewed. Constitutional: General: She is not in acute distress. Appearance: She is obese. She is not ill-appearing or diaphoretic. HENT: Head: Normocephalic and atraumatic. Eyes: Extraocular Movements: Extraocular movements intact. Conjunctiva/sclera: Conjunctivae normal. Cardiovascular: Rate and Rhythm: Normal rate and regular rhythm. Heart sounds: Normal heart sounds. Pulmonary: Effort: Pulmonary effort is normal. No respiratory distress. Breath sounds: Normal breath sounds. No wheezing or rhonchi. Abdominal: General: Bowel sounds are normal. Palpations: Abdomen is soft. Musculoskeletal: Cervical back: Neck supple. Skin: General: Skin is warm and dry. Capillary Refill: Capillary refill takes less than 2 seconds. Comments: Dressings to bilateral feet C/D/I Neurological: General: No focal deficit present. Mental Status: She is alert and oriented to person, place, and time. Psychiatric: Mood and Affect: Mood normal. Behavior: Behavior normal. Diagnostic Studies: Recent Labs 12/26/23 0837 WBC 8.3 RBC 4.23 HGB 11.5 HCT 37.0 MCV 87.5 MCH 27.2 MCHC 31.1* PLT 273 MPV 9.8 Recent Labs 12/26/23 0837 NEUTOPHILPCT 53.3 LYMPHPCT 33.6 MONOPCT 8.4 EOSPCT 3.5 BASOPCT 0.4 Recent Labs 12/26/23 0837 NA 140 K 4.6 CL 102 CO2 27.5 BUN 22* GLU 182* CREATININE 0.54 ALB 3.6 CALCIUM 9.8 PHOS 3.9 Medications: Scheduled Meds: insulin glargine 40 Units Subcutaneous at Bedtime guaiFENesin 400 mg Oral Q4H EXACT diphenhydrAMINE 25 mg Oral Q12H tamsulosin 0.4 mg Oral Daily polyethylene glycol 17 g Oral Daily clindamycin 600 mg Intravenous Q8H EXACT atorvastatin 40 mg Oral at Bedtime ALPRAZolam 1 mg Oral TID bacitracin Topical Daily collagenase Topical Daily Fluticasone-Salmeterol(sensor) 2 Puff Inhalation Twice Daily Umeclidinium Cascade 1 Puff Inhalation QAM acetaminophen 650 mg Oral Q6H NaCl 0.9% 2 mL Intravenous Q8H senna-docusate 8.6 mg Oral Daily Multivitamin mineral supplement 1 Tablet Oral Daily Or multivitamin 15 mL Oral Daily insulin lispro 0-10 Units Subcutaneous Before Meals & At Bedtime atenolol 100 mg Oral Daily buPROPion 150 mg Oral BID DSS 100 mg Oral BID furosemide 40 mg Oral Daily loratadine 10 mg Oral Daily montelukast 10 mg Oral QHS omeprazole 40 mg Oral Daily pregabalin 300 mg Oral BID traZODone 50 mg Oral at Bedtime QUEtiapine 100 mg Oral QHS venlafaxine 150 mg Oral Daily Continuous Infusions: PRN Meds:. oxyCODONE (immediate release) 2.5 mg Oral Q4H PRN Or oxyCODONE (immediate release) 5 mg Oral Q4H PRN midazolam 2 mg Intravenous Dressing Change And midazolam 1 mg Intravenous Dressing Change fentaNYL 100 mcg Intravenous Dressing Change And fentaNYL 50 mcg Intravenous Dressing Change NaCl 0.9% 2 mL Intravenous PRN NaCl 0.9% 5 mL Intravenous PRN NaCl 30 mL Intravenous PRN sterile water 10 mL Intravenous PRN NaCl 10 mL Intravenous PRN bisacodyl 10 mg Rectal Q72H PRN albuterol 2 Puff Inhalation Q4H PRN Patient Lines/Drains/Airways Status Active LDAs None ASSESSMENT: 58 y.o. with a principal problem of Partial thickness burn of right foot, initial encounter who requires admission for Acute or unresolved changes in physiologic status and Wound care. PLAN: NEURO: Pain Control: - Scheduled Tylenol 650 mg Q6hrs - Oxycodone 2.5 mg or 5 mg Q4hrs prn (x3 of 5mg in last 24h) Depression/Anxiety: - Continue home Venlafaxine 150 mg daily - Continue home Bupropion 150 mg BID - Continue home Xanax 1 mg TID Insomnia: - Continue home Trazodone 50 mg QHS - Continue home Seroquel 100 mg QHS Neuropathy: - Continue home Lyrica 300 mg BID Fibromyalgia, RA: - Home Voltaren Sodium - held for surgery CV: - EKG: NSR, nonspecific intraventricular conduction delay (12/18) - ECHO: Normal, EF 63% (12/18) - DERICK >1 (12/18); no need for doppler - Negative dobutamine stress test in 2021 - During cardiology f/u in June 2023 was recommended this be repeated as she c/o chest pain. Patient never had repeat test done because she was scared. HTN: - Atenolol 100 mg daily - Needs afterload reduction with ACEI/ARB post-op (see Dr. Lopez's note), will wait until after grafting surgery. has been normotensive HFpEF: - Lasix 40 mg daily Dyslipidemia: - Atorvastatin 40 mg QHS (home pravastatin not available) - (increased 12/19) PULM: - IS q4H while awake - Continuous pulse Ox - Oxygen prn COPD: - Continue home Fluticasone/salmeterol 2 puffs BID - Continue home Incruse 1 puff daily - Albuterol Q4H PRN - Continue home Singulair 10 mg QHS - Continue home Mucinex 1200 mg BID - Continue home Claritin 10mg daily - Recently completed steroid and abx course for COPD exacerbation - Had 6 minute walk test July 2023 --> ambulated 666 feet while pushing a wheelchair with no hypoxia - Patient encouraged to follow up with [facility] for further testing on discharge GHANSHYAM: - Home CPAP w/ 2L nC overnight - Does have home oxygen to use PRN GI/F/E/N: Diet: - Regular (carb controlled) diet - Nutrition Consult - Calorie counts - Daily MVI Bowel Regimen: - Colace 100 mg BID - Glycolax daily - Senna daily - Last BM 12/25 x2 GERD: - Omeprazole 40 mg daily - Monitor symptoms RENAL: - Strict I/Os - BUN/Cr: 16/0.49 (14/0.64) Asymptomatic Bacteruria: - UA +LE, denies any urinary sx ID: - Afebrile - Tetanus UTD 2022 - Procal 0.12 (12/21) Cellulitis: - Clindamycin IV 600 mg Q8h (12/19-) --> Day #7 to complete today HEME: - Hgb/Hct: 11.5/37.0 (12/25) - Type & Screen (12/24) Hx of DVTs/PEs: - Takes Xarelto at home for prevention; on hold for surgery - States allergy to Lovenox and Heparin --> hives - Requires pre-treatment with Benadryl - Lovenox 40 mg BID - held for OR - Anti-Xa: 0.17 (12/22) - Repeat Anti-Xa post-op (12/27 @ 1300) ENDO: Admission BMI 48.8 T2DM: - Hgb A1C: 8.0 (12/16) - Glimepiride 4mg daily - held for OR - Metformin XR 1000mg BID - held for OR - Farxiga 10mg daily - held for OR - Lantus 60 Units QHS - decreased to 40 units for tonight - BGs: 123-185 - SSI with carb coverage: 17 units in last 24 hours - POCT Q4h today while on CLD/NPO ERIC: - PT/OT Consult - Activity: Up with assistance - Elevate feet T/L/D: - PIV SHAFFER: 4.1 %TBSA full thickness scald shaffer to bilateral feet and left lower leg DOI: 12/17/23 OR: 12/20: Excision of shaffer to bilateral feet and left lower leg; placement of allograft Dressings: - Xeroform/Kerlix/Allen - Plan for OR 12/05 Consultants: Adult Internal Medicine Anesthesia Cardiology Nutrition PT/OT Oil Producer Speech Anticipate Discharge: Plan for OR 12/25 for STSG vs dermal substitute. Will determine disposition post op. Does not have a lot of support and might require a short stay in SNF before going home. Consultants may have been involved with the patient's care as indicated above. All recommendations were reviewed, discussed & approved by the primary burn team as indicated in the progress note. This note or partial portions of this note may have been created using a copy forward or copy pastefeature, but these portions have been verified and re- edited for accuracy and any portions not in need of editing or review are not being used to generate any component necessary for billing purposes. Elements necessary for proper CPT code selection are based only on elements of the visit that are truly unique to this visit. Magdalena Perez PA-C 12/26/2023 * Champ Waterman MD - 12/25/2023 9:59 AM EDT Burn Attending note I was present during tobin or critical portions of service provided by the resident/SARINA/MUKESH and participated in multidisciplinary rounds at the patient bedside. I confirmed pertinent physical and related findings. I reviewed all data including investigations. I directed assessment and plan of care. See today's note from resident/SARINA/MUKESH. This note or partial portions of this note may have been created using a copy forward or copy pastefeature, but these portions have been verified and re- edited for accuracy and any portions not in need of editing or review are not being used to generate any component necessary for billing purposes. Elements necessary for proper CPT code selection are based only on elements of the visit that are truly unique to this visit. Consultants may have been involved with the patient's care, however all recommendations were reviewed and approved by me as indicated in the progress note. Seen and examined on rounds and in dressing care today. No major issues. AF, VSS on RA Gen: nad, alert Feet: cadaver adherent. Plantar aspect of left foot almost healed. Cellulitis resolved. +edema. In xeroform/cuti/kerlix/allen Labs reviewed Glucose 185 Wbc 8.4 Hb 11.4 Plt 175 Plan Pain control. Home antidepressants Lyrica CV: IM saw. Statin, lasix, atenolol Pulm: RA/IS. On cpap at night. GI: Diet as tolerated. Carb controlled. NPO for surgery tomorrow. Bowel regimen. PPI FEN/: stable. Uop good. HEME/ID: on clindamycin for cellulitis. Ends after tomorrow's OR. Hold DVT prophylaxis for surgery tomorrow. Type and screen Endo: hold metformin, decreased lantus periop. On glimepiride. SSI. PT/OT Wounds: OR for excision and grafting to bilateral feet. She was informed of risks, benefits, alternatives including no surgery. Risks include pain, bleeding, infection, nerve damage, need for transfusions and blood product risks, hypertrophic scarring, graft loss, donor site infection or delayed hea ling, need for further surgery, and risks of anesthesia. She understands this and agrees to proceed. All questions were answered. Informed consent obtained. CLIFTON Waterman MD 12/25/2023 * Bri Shukla PA-C - 12/25/2023 7:17 AM EDT BURN - PRE-OP NOTE Surgeon: Dr. Waterman Procedure: Removal of Cadaveric homograft to bilateral feet with placement of STSG Anticipated Date of Procedure: 12/26/23 Preoperative Clearance to be obtained by: [ X ] [facility] Internal Medicine [ X ] Burn Anesthesia has been notified of patient (per algorithm) NPO: Patient is to be on a Clear Liquid Diet @ 0600 on 12/26/23 Patient is to be NPO @ 1200 on 12/26/23 IVF: Blood Products Requested: Type and screen: 12/25/23 Type and cross: For: Units Labs/Imaging/Diagnostics: [ X ] CBC [ X ] CMP [ ] PT/PTT/INR [ X ] Type and Screen [ X ] Urine HCG [ X ] CXR [ X ] EKG [ X ] Echo Medications to be held prior to surgery: -NSAIDS/Toradol/Naproxen (Stop 48-72h prior to surgery) -ASA (Stop 7-10d prior to surgery) -Antiplatelet Agents- Clopidogrel (Plavix), Ticagrelor (Brilinta) (Stop 7 days prior to surgery) -Antiplatelet Agents- Prasurgrel (Effient) (Stop 7 days prior to surgery) -Antiplatelet Agents- Ticlopidine (Ticlid) (Stop 10d prior to surgery) -ALLEN Inhibitors- (i.e.- Captopril, Lisinopril, Enalapril) (Stop 24h prior to surgery) -ARBS- Cozaar (i.e- Losartan) (Stop 24h prior to surgery) -Anticoagulant- Lovenox (most cases stop 12h prior to surgery, BUT for regional blocks need 24 hours) -Anticoagulant- Coumadin (Stop 5d prior to surgery or until INR < 1.5) -Metformin/Glucophage (Stop 24h prior to surgery) -All herbal Medications PO/Topical (Stop 7-10d prior to surgery) Bri Shukla PA-C * Bri Shukla PA-C - 12/25/2023 6:44 AM EDT Images from the original note were not included. DAILY PROGRESS NOTE Name: Kamini Iryb Date:12/25/2023 Attending:Jose Sin MD Hospital Day: 9 SUBJECTIVE: Reported issues and events over the last 24 hours: POD#4: Excision of burn to bilateral feet with cadaver placement - No issues overnight - CPAP on, patient sleeping this morning, did not awaken to examine - Clindamycin to end tomorrow post-op - Dressing change today with PO - Lovenox held after PM dose for OR tomorrow - Metformin & Glimepiride held after AM dose for OR tomorrow - CLD @ 0600 and NPO @ 1200 for OR tomorrow - Lantus dose decreased to 40 units this evening - POCT Glucose Q4h starting tomorrow AM while NPO - Seen during dressing change; minimal amount of drainage. Cadaver intact to bilateral feet. OBJECTIVE: Vitals: 12/24/23 2300 BP: Pulse: 70 Resp: 19 Temp: Temp (24hrs), Av.6 C (97.9 F), Min:36.4 C (97.5 F), Max:36.8 C (98.2 F) Vitals: 12/20/23 0914 12/23/23 1114 Weight: (!) 117.2 kg (!) 116.6 kg Weight Change Grams: -600 grams Weight Change Kg: -0.6 Kg Weight Change %: -0.51 % I/O: Intake/Output Summary (Last 24 hours) at 12/25/2023 0644 Last data filed at 12/24/2023 2300 Gross per 24 hour Intake 1615.06 ml Output 2350 ml Net -734.94 ml Exam: Physical Exam Constitutional: General: She is not in acute distress. Appearance: She is obese. HENT: Head: Normocephalic and atraumatic. Mouth/Throat: Mouth: Mucous membranes are moist. Cardiovascular: Rate and Rhythm: Normal rate. Heart sounds: Normal heart sounds. Pulmonary: Effort: Pulmonary effort is normal. No respiratory distress. Breath sounds: No wheezing or rhonchi. Comments: On room air Abdominal: Palpations: Abdomen is soft. Skin: General: Skin is warm and dry. Comments: Minimal amount of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 Respiratory Panel (PCR) - Final Rhinovirus 01/21/23 19:50 Mucosa - Nasopharyngeal Coronavirus COVID-19 PCR - Final 01/21/23 17:16 Nasal Secretion SARS-CoV-2 Antigen (Rapid) - Final Physical Exam Const alert, oriented x3 and no apparent distress Constitutional Narrative: Super morbid obesity. General Appearance: cooperative and well developed HEENT normocephalic, head/scalp atraumatic and moist oral mucous membranes Eyes PERRL and EOMs intact bilaterally Neck no lymphadenopathy and supple Lymph Lymphatic: no lymphadenopathy noted and no lymphedema noted Resp Resp Narrative: Mildly diminished breath sounds bibasally. Bilateral wheezing. No crackles. On 2 L of oxygen by nasal cannula. Cardio regular rate, regular rhythm, S1 normal heart sound, S2 normal heart sound and no murmurs GI normal to inspection, nondistended, normoactive bowel sounds, soft to palpation,non-tender and non-distended Extremity normal capillary refill and no clubbing, cyanosis or edema General Extremity: no tenderness to palpation of joints or extremities Skin General Skin Exam: no breakdown Neuro CN's II-XII intact bilaterally, no focal motor deficits, no sensory deficits noted and deep tendon reflexes 2+ bilaterally Motor Exam: strength 5/5 throughout and general weakness Psych thought process normal and cooperative Appearance: appropriate Assessment & Plan Assessment/Plan (1) COPD exacerbation: PLAN: Plan #Acute on chronic COPD exacerbation due to RSV infection. * COVID PCR test was negative. RSV test was positive. * Breathing treatments bronchodilators. Titrate oxygen to maintain saturation above 90%. * CT of the chest was negative for PE but showed bronchitis and groundglass opacities. Continue breathing treatments bronchodilators and IV Solu-Medrol. * On p.o. azithromycin. * #Acute on chronic heart failure preserved ejection fraction: Has known EF of 55%. On IV Lasix. Monitor intake and output. Fluid restriction to 1500 daily. #Type 2 diabetes mellitus: Insulin sliding scale. Accu-Cheks ACHS. On Lantus 50 units twice daily as well as Jardiance and glimepiride #Hypertension: On atenolol #Hyperlipidemia: On statin #History of DVT and PE: On Xarelto #Super morbid obesity: BMI is 47.4. Complicates acute care, expected recovery and prognosis. #Peripheral artery disease: #Depression: On venlafaxine DVT prophylaxis: Already on Xarelto. Disposition: patient feels too weak to go home today. WIll keep overnight and dctomorrow * Charges/Coding Visit Charges Inpatient E&M: 23960 Subs Hosp L2 01/23/23 1057 <Electronically signed by Stella Brooke MD> Stella Brooke MD Cosigner Signature (if applicable): CC: ~ Signed [facility] Work Phone: 1(371) 166-410210-21-2023 Progress note Author [facility] January 22, 2023 3:06pm Note Date/Time January 22, 2023 1 :53pm [facility] Medical Records Department [address] [place] [address] Progress Note 01/22/23 1344 MR#: [id number] Acct: [id number] Name: KAMINI IRBY Rep #:[id number] : 1965 57 From: Stella Brooke MD PCP: Dr. Pk Sloan, DO Status:ADM IN Location: [place] [address] Subjective Subjective Patient seen and examined. She was admitted with a complaint of shortness of breath and has been managed for COPD exacerbation. She had tested positive for COVID at an outside hospital with the antibody test but when she came in PCR test is negative. She did test positive for rhinovirus. She feels much better today and is actually asking to go home. She does admit to some mild wheezing. She denies any chest pain or palpitations, dizziness or nausea or vomiting. Review of systems otherwise negative. Objective Data Objective Data Vital Signs: Vital Signs Temp Pulse Resp BP Pulse Ox O2 Del Method O2 Flow Rate 97.0 F L 76 22 H 153/75 H 93 Nasal Cannula 2 01/22/23 10:40 01/22/23 11:14 01/22/23 11:14 01/22/23 10:40 01/22/23 10:40 01/22/23 10:40 01/22/23 10:40 Oxygen Flow Rate (L/min) 2 Oxygen Delivery Method Nasal Cannula Weight: 259 lb 4.218 oz Body Mass Index (BMI) 47.4 Intake & Output: Intake and Output for Last 24 Hours 01/20/23 01/21/23 01/22/23 23:59 23:59 23:59 Intake Total 220 / 220 60 / 60 Output Total 400 / 400 180 / 180 Balance -180 / -180 -120 / -120 Lab / Micro Data 01/22/23 07:40 01/22/23 07:40 Labs: Laboratory Results - last 24 hr 01/21/23 17:16: WBC 11.6 H, RBC 5.10, Hgb 13.8, Hct 44.5, MCV 87.3, MCH 27.1, MCHC 31.0 L, RDW Std Deviation 48.1 H, RDW Coeff of Luiz 15.2 H, Plt Count 227, MPV 10.0, Immature Gran % (Auto) 0.300, Neut % (Auto) 59.1, Lymph % (Auto) 32.2,Jewell % (Auto) 5.2, Eos % (Auto) 2.9, Baso % (Auto) 0.3, Absolute Neuts (auto) 6.8, Absolute Lymphs (auto) 3.72, Nucleated RBC % 0, D-Dimer Quant (PE/DVT) 0.75H*, Sodium 140, Potassium 3.7, Chloride 106, Carbon Dioxide 29.0, Anion Gap 5, BUN 16, Creatinine 0.79, Estim Creat Clear Calc 62.89, Est GFR (MDRD) Af Amer 97, Est GFR (MDRD) Non-Af 80, BUN/Creatinine Ratio 20.3 H, Glucose 150 H, Calcium 9.4, Total Bilirubin 0.20, AST 22, ALT 55, Alkaline Phosphatase 87, Troponin I High Sens 3, Total Protein 7.4, Albumin 3.6, Globulin 3.8, Albumin/Globulin Ratio 0.9 01/21/23 23:35: POC Glucose 235 H 01/22/23 06:55: POC Glucose 226 H 01/22/23 07:40: WBC 7.8, RBC 5.09, Hgb 13.7, Hct 44.3, MCV 87.0, MCH 26.9 L, MCHC 30.9 L, RDW Std Deviation 49.0 H, RDW Coeff of Luiz 15.5 H, Plt Count 244, MPV10.5, Immature Gran % (Auto) 0.500, Neut % (Auto) 77.7 H, Lymph % (Auto) 19.8, Jewell % (Auto) 1.9, Eos % (Auto) 0.0, Baso % (Auto) 0.1, Absolute Neuts (auto) 6.0, Absolute Lymphs (auto) 1.54, Nucleated RBC % 0, Sodium 138, Potassium 4.4, Chloride 106, Carbon Dioxide 28.0, Anion Gap 4 L, BUN 13, Creatinine 0.67, EstimCreat Clear Calc 74.15, Est GFR (MDRD) Af Amer 117, Est GFR (MDRD) Non-Af 97, BUN/Creatinine Ratio 19.5, Glucose 218 H, Calcium 9.7, TSH 0.51 01/22/23 10:59: POC Glucose 224 H Micro: Microbiology 01/21/23 20:03 Mucosa - Nasopharyngeal Respiratory Panel (PCR) - Final Rhinovirus 01/21/23 19:50 Mucosa - Nasopharyngeal Coronavirus COVID-19 PCR - Final 01/21/23 17:16 Nasal Secretion SARS-CoV-2 Antigen (Rapid) - Final Radiography Diagnostic Testing: Radiology Impression Chest X-Ray 01/21/23 15:45 IMPRESSION: Mild nonspecific interstitial thickening in the lower lobes which may be consistent with viral pneumonia.. Electronically Signed: Deepak Rodriguez MD at 16:49 EDT , Chest CTA 01/21/23 17:54 IMPRESSION: Findings which may be consistent with clinical history: 19 pneumonia and possibly superimposed mild pulmonary interstitial edema.. Limited study of the pulmonary arteries without definitive evidence for pulmonary embolus Electronically Signed: Deepak Rodriguez MD at 18:43 EDT , Physical Exam Const alert, oriented x3 and no apparent distress Constitutional Narrative: Super morbid obesity. General Appearance: cooperative and well developed HEENT normocephalic, head/scalp atraumatic and moist oral mucous membranes Eyes PERRL and EOMs intact bilaterally Neck no lymphadenopathy and supple Lymph Lymphatic: no lymphadenopathy noted and no lymphedema noted Resp Resp Narrative: Mildly diminished breath sounds bibasally. Bilateral wheezing. No crackles. On 2 L of oxygen by nasal cannula. Cardio regular rate, regular rhythm, S1 normal heart sound, S2 normal heart sound and no murmurs GI normal to inspection, nondistended, normoactive bowel sounds, soft to palpation,non-tender and non-distended Extremity normal capillary refill and no clubbing, cyanosis or edema General Extremity: no tenderness to palpation of joints or extremities Skin General Skin Exam: no breakdown Neuro CN's II-XII intact bilaterally, no focal motor deficits, no sensory deficits noted and deep tendon reflexes 2+ bilaterally Motor Exam: strength 5/5 throughout and general weakness Psych thought process normal and cooperative Appearance: appropriate Assessment & Plan Assessment/Plan (1) COPD exacerbation: PLAN: Plan #Acute on chronic COPD exacerbation due to RSV infection. * COVID PCR test was negative. RSV test was positive. * Breathing treatments bronchodilators. Titrate oxygen to maintain saturation above 90%. * CT of the chest was negative for PE but showed bronchitis and groundglass opacities. Continue breathing treatments bronchodilators and IV Solu-Medrol. * On p.o. azithromycin. * #Acute on chronic heart failure preserved ejection fraction: Has known EF of 55%. On IV Lasix. Monitor intake and output. Fluid restriction to 1500 daily. #Type 2 diabetes mellitus: Insulin sliding scale. Accu-Cheks ACHS. On Lantus 50 units twice daily as well as Jardiance and glimepiride #Hypertension: On atenolol #Hyperlipidemia: On statin #History of DVT and PE: On Xarelto #Super morbid obesity: BMI is 47.4. Complicates acute care, expected recovery and prognosis. #Peripheral artery disease: #Depression: On venlafaxine DVT prophylaxis: Already on Xarelto. * Charges/Coding Visit Charges Inpatient E&M: 92053 Subs Hosp L2 01/22/23 1506 <Electronically signed by Stella Brooke MD> Stella Brooke MD Cosigner Signature (if applicable): CC: ~ Signed [facility] Work Phone: [phone]) 515-676210-20-2023 History and physical note Author Ashok Robles [facility] January 21, 2023 9:45pm Note Date/Time January 21, 2023 8 :09pm [facility] Medical Records Department [address] [place] [address] H&P Exam - Hospitalist 01/21/232003 MR#: [id number] Acct: [id number] Name: KAMINI IRBY Rep #:[id number] 3 : 1965 57 From: Ashok Flores PCP: Dr. Pk Sloan, DO Status:ADM IN Location: [place] [id number] HPI - General General Date of Admission: 01/21/23 Date of Service: 01/21/23 Chief Complaint: shortness of breath and wheezing for 4 days. HPI Narrative KAMINI IRBY, is a 57 F with multiple comorbidities came to ER with feeling of shortness of breath and wheezing for 4 days. Prior to that patient started withsore throat, headache, loss of appetite about 5 days ago and could not eat or drink much. She has a history of COPD and smokes about half pack per day for long time. She has chest tightness all around but denies chest pressure or sharp pain. She also has cough which is mainly dry and feels mucus/phlegm is stuck in the chest. Denies fever. She was tested rapid antigen COVID positive about 1 day ago. He had COVID antigen negative therefore PCR ordered. Chest x-ray and CTA initially which shows more bronchitis, groundglass opacity but negative for PE. It is reported as diffuse interstitial thickening more pronounced in lower lobes with focal and diffuse groundglass opacity consistent with viral pneumonia, COVID-19. Possible coexisting pulmonary interstitial edema. In ED, labs and vitals and EKG reviewed. Twelve-lead EKG done in the ER showed normal sinus rhythm with nonspecific opacity at 84 bpm. No significant change from previous EKG of April 2022. [facility] Medical History Anemia Anxiety Anxiety disorder Arthritis Asthma Back pain Bronchitis Cardiology follow-up encounter Chronic back pain Chronic cough Chronic hypoxemic respiratory failure Chronic sinusitis COPD exacerbation COPD, frequent exacerbations Costal chondritis CPAP (continuous positive airway pressure) dependence Depression Diabetes DVT (deep venous thrombosis) Emphysema, unspecified Essential hypertension Excessive bleeding Fibromyalgia Gastric reflux GERD (gastroesophageal reflux disease) Healthcare-associated pneumonia History of CHF (congestive heart failure) History of DVT of lower extremity History of echocardiogram History of edema History of pulmonary embolus (PE) History of steroid therapy Insulin dependent diabetes mellitus Itching Leg cramps Livedo reticularis Morbid (severe) obesity due to excess calories Nicotine dependence, uncomplicated Normal stress echocardiogram Obstructive sleep apnea On home oxygen therapy Open wound Osteoarthritis of right hip Otitis media Patient's noncompliance with other medical treatment and regimen Personal history of thromboembolic disease Post-menopausal Pulmonary embolism Rheumatoid arthritis Shortness of breath Sleep apnea Smoker TIA (transient ischemic attack) Tobacco dependence syndrome Tubal Type 2 diabetes mellitus Wears glasses Home Medications alprazolam 0.5 mg tablet 0.5 mg PO BID PRN PRN Anxiety 12/15/13 [History Last Taken 06/04/22 05:00] atenolol 100 mg tablet 100 mg PO DAILY blood pressure 12/15/13 [History Last Taken 06/04/22 05:00] omeprazole 40 mg capsule,delayed release 40 mg PO DAILY GERD 12/15/13 [History Last Taken 06/03/22] pravastatin 40 mg tablet 40 mg PO QHS cholesterol 03/17/14 [History Last Taken 06/03/22] glimepiride 4 mg tablet 4 mg PO DAILY diabetes 04/23/15 [History Last Taken 06/03/22] docusate sodium 100 mg capsule 200 mg PO BID Constipation 03/10/17 [History Last Taken 06/03/22] pregabalin 300 mg capsule (Lyrica) 300 mg PO BID nerve pain 03/10/17 [History Last Taken 06/03/22] rivaroxaban 20 mg tablet 20 mg PO DAILY blood thinner 03/10/17 [History Last Taken 06/02/22 17:00] quetiapine 100 mg tablet 100 mg PO QHS sleep 12/12/17 [History Last Taken 06/03/22] trazodone 50 mg tablet 50 mg PO QHS sleep 12/13/17 [History Last Taken 06/03/22] montelukast 10 mg tablet 10 mg PO QPM #30 tabs 12/26/20 [Rx Last Taken 06/03/22] multivitamin (Daily Multi-Vitamin tablet) 1 tab PO DAILY 12/26/20 [History Last Taken 06/03/22] bupropion HCl 150 mg tablet,12 hr sustained-release 150 mg PO BID 11/27/21 [History Last Taken 06/03/22] dapagliflozin propanediol 5 mg tablet (Farxiga) 5 mg PO DAILY 11/27/21 [History Last Taken 06/03/22] diclofenac sodium 75 mg tablet,delayed release 75 mg PO BID 11/27/21 [History Last Taken 06/03/22] insulin glargine 100 unit/mL (3 mL) subcutaneous pen (Lantus Solostar U-100 Insulin) 60 unit subcut BID 11/27/21 [History Last Taken 06/03/22 06:00] omega-3 acid ethyl esters 1 gram capsule 2 cap PO BID 11/27/21 [History Last Taken 06/03/22] venlafaxine 150 mg capsule,extended release 24 hr 300 mg PO QHS 11/27/21 [History Last Taken Unknown] furosemide 40 mg tablet 40 mg PO DAILY #30 tabs 04/20/22 [Rx Last Taken 06/03/22] albuterol sulfate 2.5 mg/3 mL (0.083 %) solution for nebulization 2.5 mg (3 mL) inhalation Q6H PRN SHORTNESS OF BREATH #180 vials 04/29/22 [Rx Last Taken 06/04/22] loratadine 10 mg tablet 10 mg PO DAILY #90 tabs 04/29/22 [Rx Last Taken 06/03/22] acetaminophen 650 mg tablet,extended release 1,300 mg PO Q8H 05/31/22 [History Last Taken Unknown] metformin 500 mg tablet,extended release 24 hr 1,000 mg PO BID 05/31/22 [History Last Taken 06/02/22] ferrous sulfate 325 mg (65 mg iron) tablet 325 mg PO DAILY #30 tabs 06/08/22 [Rx Last Taken 06/03/22] insulin lispro 100 unit/mL subcutaneous pen (Humalog KwikPen (U-100) Insulin) See Protocol subcut ACHS #15 mL 06/08/22 [Rx Last Taken Unknown] oxycodone 5 mg tablet 5 mg PO Q6H PRN PRN Pain 4 days #14 tabs 06/08/22 [Rx Last Taken Unknown] polyethylene glycol 3350 17 gram oral powder packet 17 g PO DAILY #0 ea 06/08/22[Rx Last Taken Unknown] sennosides 8.6 mg-docusate sodium 50 mg tablet (Stool Softener-Stimulant Laxative) 2 tab PO BID #0 tabs 06/08/22 [Rx Last Taken Unknown] guaifenesin 1,200 mg tablet, extended release 12 hr 1,200 mg PO Q12H #60 tabs 12/28/22 [Rx Last Taken Unknown] fluticasone 232 mcg-salmeterol 14 mcg/actuation breath activated powdr (AirDuo RespiClick) 1 inh inhalation BID #1 ea 12/30/22 [Rx Last Taken Unknown] umeclidinium 62.5 mcg/actuation blister powder for inhalation (Incruse Ellipta) 1 inh inhalation DAILY #30 ea 12/30/22 [Rx Last Taken Unknown] albuterol sulfate 90 mcg/actuation aerosol inhaler 2 puff inhalation Q6H PRN shortness of breath or wheezing #18 grams 01/10/23 [Rx Last Taken Unknown] Allergy/AdvReac Type Severity Reaction Status Date / Time enoxaparin sodium Allergy Mild Itching Verified 01/21/23 15:07 [From Lovenox] heparin Allergy Itching Verified 01/21/23 15:07 [email or web address] [From Chantix] AdvReac Intermediate MENTAL Verified 01/21/23 15:07 ISSUES arthromycin Allergy Mild Itching Uncoded 01/21/23 15:07 Family History Other No pertinent family history Surgical History History of tubal ligation Hx of surgical procedure No pertinent past surgical history Social History Smoking Status: Current every day smoker tobacco type: cigarettes alcohol intake: never substance use type: does not use caffeine: Yes Type: coffee Number of servings: 5 ROS ROS Narrative Constitutional: Reports fatigue and weakness. No fever. HEENT: Reports systems reviewed and no addt'l complaints, except as documented Respiratory/Chest: Dyspnea on minimal to mild exertion. Rest as described in HPI CVS: Denies chest pressure or anginal-like symptoms. Denies CAD or cardiac stents. Gastrointestinal: Nausea, loss of appetite. Denies coffee ground emesis, hematemesis or vomiting Genitourinary: Denies burning urination or new urinary tract symptoms Musculoskeletal: Denies acute joint pain or limited range of motion. No acute injury Neurologic: Denies seizure-like symptoms. skin: No ulcer. No rash Endocrinology: Reports systems reviewed and no addt'l complaints, except as documented Hematologic/Lymphatic: Reports systems reviewed and no addt'l complaints, exceptas documented Rest 14 ROS are negative except as mentioned in HPI Vital Signs Vital Signs Vital Signs: 01/21/23 15:07 01/21/23 16:17 01/21/23 16:29 Temperature 96.5 F L Temperature Source Temporal Pulse Rate 79 81 Respiratory Rate 18 22 H Respiratory Effort Short of Breath Respiratory Depth Normal Respiratory Pattern Normal Normal Blood Pressure 160/72 H Blood Pressure Mean 101 Pulse Ox 93 Oxygen Delivery Method Room Air Room Air Oxygen Flow Rate (L/min) 01/21/23 16:29 01/21/23 18:05 01/21/23 19:24 Temperature 98.3 F Temperature Source Oral Pulse Rate 86 82 Respiratory Rate 23 H 20 H Respiratory Effort Respiratory Depth Respiratory Pattern Blood Pressure 120/109 H 143/93 H Blood Pressure Mean 112 109 Pulse Ox 95 90 Oxygen Delivery Method Room Air Nasal Cannula Nasal Cannula Oxygen Flow Rate (L/min) 2 2 01/21/23 19:25 01/21/23 20:03 Temperature Temperature Source Pulse Rate 82 82 Respiratory Rate 21 H 20 H Respiratory Effort Respiratory Depth Respiratory Pattern Blood Pressure 143/93 H 119/48 L Blood Pressure Mean 109 71 Pulse Ox 94 92 Oxygen Delivery Method Nasal Cannula Oxygen Flow Rate (L/min) 2 Weight Weight: 264 lb 5.348 oz Body Mass Index (BMI) 48.3 Physical Exam Narrative General: Alert, Oriented x3, Cooperative, morbid obesity BMI 47.4 kg/m? HEENT: Atraumatic, PERRLA, EOMI, Normocephalic Oral: Deep oropharyngeal structures could not be visualized. Oral mucosa dry. Neck: Supple, No JVD, Negative Carotid Bruits Lungs: Air entry diminished in bilateral lung bases. Bilateral wheezing. Dyspnea on exertion. Cardiovascular: Regular rate, Regular Rhythm, Normal S1, Normal S2, No murmurs Abdomen: Bowel Sounds Present, Soft, Non Tender, Non-Distended : No renal angle tenderness. No suprapubic tenderness. Extremities: No edema, Capillary Refill Less than 3 Seconds Skin: No rashes, No breakdown Musculoskeletal: No Tenderness to Palpation of Joints or Extremities. ROM restricted. Neurological: Cranial nerves II-XII grossly intact, DTR 2+/4. No acute focal neurological deficit. Psych/Mental Status: Flat affect. Results Lab / Micro Data 01/21/23 17:16 01/21/23 17:16 Labs: Laboratory Results - last 24 hr 01/21/23 17:16: WBC 11.6 H, RBC 5.10, Hgb 13.8, Hct 44.5, MCV 87.3, MCH 27.1, MCHC 31.0 L, RDW Std Deviation 48.1 H, RDW Coeff of Luiz 15.2 H, Plt Count 227, MPV 10.0, Immature Gran % (Auto) 0.300, Neut % (Auto) 59.1, Lymph % (Auto) 32.2,Jewell % (Auto) 5.2, Eos % (Auto) 2.9, Baso % (Auto) 0.3, Absolute Neuts (auto) 6.8, Absolute Lymphs (auto) 3.72, Nucleated RBC % 0, D-Dimer Quant (PE/DVT) 0.75H*, Sodium 140, Potassium 3.7, Chloride 106, Carbon Dioxide 29.0, Anion Gap 5, BUN 16, Creatinine 0.79, Estim Creat Clear Calc 62.89, Est GFR (MDRD) Af Amer 97, Est GFR (MDRD) Non-Af 80, BUN/Creatinine Ratio 20.3 H, Glucose 150 H, Calcium 9.4, Total Bilirubin 0.20, AST 22, ALT 55, Alkaline Phosphatase 87, Troponin I High Sens 3, Total Protein 7.4, Albumin 3.6, Globulin 3.8, Albumin/Globulin Ratio 0.9 Micro: Microbiology 01/21/23 17:16 Nasal Secretion SARS-CoV-2 Antigen (Rapid) - Final Radiology Impression Chest X-Ray 01/21/23 15:45 IMPRESSION: Mild nonspecific interstitial thickening in the lower lobes which may be consistent with viral pneumonia.. Electronically Signed: Deepak Rodriguez MD at 16:49 EDT Reading Location ID and State: [facility] / [place] Tel [phone], Service support , Chest CTA 01/21/23 17:54 IMPRESSION: Findings which may be consistent with clinical history: 19 pneumonia and possibly superimposed mild pulmonary interstitial edema.. Limited study of the pulmonary arteries without definitive evidence for pulmonary embolus Electronically Signed: Deepak Rodriguez MD at 18:43 EDT , Assessment & Plan Assessment/Plan (1) COPD exacerbation: PLAN: Plan 57-year-old female is being admitted for subacute onset of shortness of breath with progressively worsening for 4 to 5 days per 1. COPD/asthma bronchitis acute exacerbation with history of continued cigarette smoking: Patient is being admitted in PCU. She has POC rapid SARS-CoV-2 antigen positive on 01/21/2023. There is suspicion of COVID therefore COVID-19 PCR ordered. Respiratory panel ordered. Sputum culture and urinary antigens ordered. Blood cultures x2 ordered by ER physician. CTA chestshows no PE but diffuse interstitial thickening and groundglass opacities suspicion for viral pneumonia. She did not had COVID-vaccine. 2. Acute on chronic HFpEF: Lasix 40 mg IV once daily, first dose ordered for pulmonary interstitial edema. Patient on furosemide 40 mg daily at home. She had dobutamine stress echo done in January 2020 reported negative. 2D echo in February 2019 reported EF 55% with normal LV systolic function trivial MR, TR and PI. We will repeat 2D echo tomorrow AM. Troponin and EKG normal therefore I do not suspect ACS and she does not have anginal quality chest pain or pressure. 3. Diabetes mellitus type 2: Glucose is 150. Accu-Cheks before meals and at bedtime and cover with Humalog sliding scale 4. Chronic right nonpressure great toe diabetic foot ulcer status post left foot Merino arthroplasty on 06/04/2022. Patient follows Dr. Kulkarni. She has history of MRSA positive on bone culture obtained on 01/06/2023 and vancomycin sensitive Enterococcus faecalis and MSSE. She stated she follows regularly in wound center with Dr. Kulkarni and recently completed antibiotic. 5. Hypertension, peripheral artery disease, hyperlipidemia, GERD, anxiety, depression, history of PEs and DVTs: Patient on Xarelto and continued. Multiplecomorbidities complicates the present care and expect difficult and delay recovery. Continue monitor and adjust medications as needed Living will/advanced directive/end of life care: Patient does not have living will or advanced directive. Her is next of kin but does not have diagnosis of power of defense attorney for health. After discussion of benefits/risks procedures involved with full code, DNR CC arrest and DNR CC, the patient stated that she wants intubation as a last resort if everything other fails. Shewas elusive for intubation ventilator and stated intubation/ventilator only for reversible causes or if it can save her life. Patient does want artificial life support including intubation, tube feed, ventilator and/chest compression, central venous catheter, vasopressor and DC shock if needed Total time spent in [id number] encounter in discussion of advanced directive 17 minutes. Microbiology Past 72 Hours 01/21/23 17:16 Nasal Secretion SARS-CoV-2 Antigen (Rapid) - Final Laboratory Results 01/21/23 17:16: WBC 11.6 H, RBC 5.10, Hgb 13.8, Hct 44.5, MCV 87.3, MCH 27.1, MCHC 31.0 L, RDW Std Deviation 48.1 H, RDW Coeff of Luiz 15.2 H, Plt Count 227, MPV 10.0, Immature Gran % (Auto) 0.300, Neut % (Auto) 59.1, Lymph % (Auto) 32.2,Jewell % (Auto) 5.2, Eos % (Auto) 2.9, Baso % (Auto) 0.3, Absolute Neuts (auto) 6.8, Absolute Lymphs (auto) 3.72, Nucleated RBC % 0, D-Dimer Quant (PE/DVT) 0.75H* , Sodium 140, Potassium 3.7, Chloride 106, Carbon Dioxide 29.0, Anion Gap 5, BUN16, Creatinine 0.79, Estim Creat Clear Calc 62.89, Est GFR (MDRD) Af Amer 97, Est GFR (MDRD) Non-Af 80, BUN/Creatinine Ratio 20.3 H, Glucose 150 H, Calcium 9.4, Total Bilirubin 0.20, AST 22, ALT 55, Alkaline Phosphatase 87, Troponin I High Sens 3, Total Protein 7.4, Albumin 3.6, Globulin 3.8, Albumin/Globulin Ratio 0.9 Charges/Coding Visit Charges Inpatient E&M: 14178 Init Hosp L3 Procedures Hospitalists Procedures: 58190 Advncd Care Plan 30 Min 01/21/232144 <Electronically signed by Ashok Robles MD> Cosigner Signature (if applicable): CC: Dr. Ashok Robles MD; Dr. Pk Sloan DO~ Signed [facility] Work Phone: 1(977) 555-700610-20-2023 Discharge summary Author Thomas Mayfield [facility] January 21, 2023 7:44pm Note Date/Time January 21, 2023 4 :16pm [facility] Medical Records Department [address] [place] [id number] Emergency Department Summary 01/21/23 MR#: [id number] Acct: [id number] Name: KAMINI IRBY Rep #:[id number] 1 : 1965 57 From: Thomas Mayfield DO PCP: Dr. Pk Sloan DO Status:REG ER Location: ED HPI History of Present Illness Chief Complaint: Shortness of Breath Narrative Narrative: 57-year-old female presenting after being diagnosed with COVID at the urgent care she states they told her to come over to the emergency room because she hasa history of COPD. Patient is not having any chest pain. She has shortness of breath which is chronic. She feels generally fatigued and has generalized weakness. Apparently she had a pulse ox of 88% which rebounded. She is currently 93%. She does have some wheezing. PFSH PFS Medical History Anemia Anxiety Anxiety disorder Arthritis Asthma Back pain Bronchitis Cardiology follow-up encounter Chronic back pain Chronic cough Chronic hypoxemic respiratory failure Chronic sinusitis COPD exacerbation COPD, frequent exacerbations Costal chondritis CPAP (continuous positive airway pressure) dependence Depression Diabetes DVT (deep venous thrombosis) Emphysema, unspecified Essential hypertension Excessive bleeding Fibromyalgia Gastric reflux GERD (gastroesophageal reflux disease) Healthcare-associated pneumonia History of CHF (congestive heart failure) History of DVT of lower extremity History of echocardiogram History of edema History of pulmonary embolus (PE) History of steroid therapy Insulin dependent diabetes mellitus Itching Leg cramps Livedo reticularis Morbid (severe) obesity due to excess calories Nicotine dependence, uncomplicated Normal stress echocardiogram Obstructive sleep apnea On home oxygen therapy Open wound Osteoarthritis of right hip Otitis media Patient's noncompliance with other medical treatment and regimen Personal history of thromboembolic disease Post-menopausal Pulmonary embolism Rheumatoid arthritis Shortness of breath Sleep apnea Smoker TIA (transient ischemic attack) Tobacco dependence syndrome Tubal Type 2 diabetes mellitus Wears glasses Home Medications alprazolam 0.5 mg tablet 0.5 mg PO BID PRN PRN Anxiety 12/15/13 [History Last Taken 06/04/22 05:00] atenolol 100 mg tablet 100 mg PO DAILY blood pressure 12/15/13 [History Last Taken 06/04/22 05:00] omeprazole 40 mg capsule,delayed release 40 mg PO DAILY GERD 12/15/13 [History Last Taken 06/03/22] pravastatin 40 mg tablet 40 mg PO QHS cholesterol 03/17/14 [History Last Taken 06/03/22] glimepiride 4 mg tablet 4 mg PO DAILY diabetes 04/23/15 [History Last Taken 06/03/22] docusate sodium 100 mg capsule 200 mg PO BID Constipation 03/10/17 [History Last Taken 06/03/22] pregabalin 300 mg capsule (Lyrica) 300 mg PO BID nerve pain 03/10/17 [History Last Taken 06/03/22] rivaroxaban 20 mg tablet 20 mg PO DAILY blood thinner 03/10/17 [History Last Taken 06/02/22 17:00] quetiapine 100 mg tablet 100 mg PO QHS sleep 12/12/17 [History Last Taken 06/03/22] trazodone 50 mg tablet 50 mg PO QHS sleep 12/13/17 [History Last Taken 06/03/22] montelukast 10 mg tablet 10 mg PO QPM #30 tabs 12/26/20 [Rx Last Taken 06/03/22] multivitamin (Daily Multi-Vitamin tablet) 1 tab PO DAILY 12/26/20 [History Last Taken 06/03/22] bupropion HCl 150 mg tablet,12 hr sustained-release 150 mg PO BID 11/27/21 [History Last Taken 06/03/22] dapagliflozin propanediol 5 mg tablet (Farxiga) 5 mg PO DAILY 11/27/21 [History Last Taken 06/03/22] diclofenac sodium 75 mg tablet,delayed release 75 mg PO BID 11/27/21 [History Last Taken 06/03/22] insulin glargine 100 unit/mL (3 mL) subcutaneous pen (Lantus Solostar U-100 Insulin) 60 unit subcut BID 11/27/21 [History Last Taken 06/03/22 06:00] omega-3 acid ethyl esters 1 gram capsule 2 cap PO BID 11/27/21 [History Last Taken 06/03/22] venlafaxine 150 mg capsule,extended release 24 hr 300 mg PO QHS 11/27/21 [History Last Taken Unknown] furosemide 40 mg tablet 40 mg PO DAILY #30 tabs 04/20/22 [Rx Last Taken 06/03/22] albuterol sulfate 2.5 mg/3 mL (0.083 %) solution for nebulization 2.5 mg (3 mL) inhalation Q6H PRN SHORTNESS OF BREATH #180 vials 04/29/22 [Rx Last Taken 06/04/22] loratadine 10 mg tablet 10 mg PO DAILY #90 tabs 04/29/22 [Rx Last Taken 06/03/22] acetaminophen 650 mg tablet,extended release 1,300 mg PO Q8H 05/31/22 [History Last Taken Unknown] metformin 500 mg tablet,extended release 24 hr 1,000 mg PO BID 05/31/22 [History Last Taken 06/02/22] ferrous sulfate 325 mg (65 mg iron) tablet 325 mg PO DAILY #30 tabs 06/08/22 [Rx Last Taken 06/03/22] insulin lispro 100 unit/mL subcutaneous pen (Humalog KwikPen (U-100) Insulin) See Protocol subcut ACHS #15 mL 06/08/22 [Rx Last Taken Unknown] oxycodone 5 mg tablet 5 mg PO Q6H PRN PRN Pain 4 days #14 tabs 06/08/22 [Rx Last Taken Unknown] polyethylene glycol 3350 17 gram oral powder packet 17 g PO DAILY #0 ea 06/08/22[Rx Last Taken Unknown] sennosides 8.6 mg-docusate sodium 50 mg tablet (Stool Softener-Stimulant Laxative) 2 tab PO BID #0 tabs 06/08/22 [Rx Last Taken Unknown] guaifenesin 1,200 mg tablet, extended release 12 hr 1,200 mg PO Q12H #60 tabs 12/28/22 [Rx Last Taken Unknown] fluticasone 232 mcg-salmeterol 14 mcg/actuation breath activated powdr (AirDuo RespiClick) 1 inh inhalation BID #1 ea 12/30/22 [Rx Last Taken Unknown] umeclidinium 62.5 mcg/actuation blister powder for inhalation (Incruse Ellipta) 1 inh inhalation DAILY #30 ea 12/30/22 [Rx Last Taken Unknown] albuterol sulfate 90 mcg/actuation aerosol inhaler 2 puff inhalation Q6H PRN shortness of breath or wheezing #18 grams 01/10/23 [Rx Last Taken Unknown] Allergy/AdvReac Type Severity Reaction Status Date / Time enoxaparin sodium Allergy Mild Itching Verified 01/21/23 15:07 [From Lovenox] heparin Allergy Itching Verified 01/21/23 15:07 [email or web address] [From Chantix] AdvReac Intermediate MENTAL Verified 01/21/23 15:07 ISSUES arthromycin Allergy Mild Itching Uncoded 01/21/23 15:07 Family History Other No pertinent family history Surgical History History of tubal ligation Hx of surgical procedure No pertinent past surgical history Social History Smoking Status: Current every day smoker tobacco type: cigarettes alcohol intake: never substance use type: does not use caffeine: Yes Type: coffee Number of servings: 5 ROS ROS ED Constitutional Constitutional ED: Reports chills and sweats; Denies fever(s) Eyes Eyes: Denies blurry vision or change in vision ENT ENT ED: Denies ear pain or sore throat Cardiovascular Cardiovascular: Denies chest pain, palpitations or racing heartbeat Respiratory/Chest Respiratory/Chest: Reports cough, dyspnea and dyspnea on exertion; Denies sputum Gastrointestinal Gastrointestinal: Denies abdominal pain, constipation, diarrhea, nausea or vomiting Genitourinary Genitourinary ED: Denies dysuria, hematuria or urinary frequency Musculoskeletal Musculoskeletal: Denies arthralgias, myalgias or neck pain Integumentary Denies abscess, Abrasions or rash Neurologic Neurologic: Denies headache(s), paresthesias or weakness Psychiatric Psychiatric: Denies anxiety, depression, suicidal ideation or suicidal thoughts Endocrine Endocrinology: Denies polydipsia or polyuria EXAM Physical Exam Const Vital Signs: 01/21/23 15:07 01/21/23 16:17 01/21/23 16:29 Temperature 96.5 F L Temperature Source Temporal Pulse Rate 79 81 Respiratory Rate 18 22 H Respiratory Effort Short of Breath Respiratory Depth Normal Respiratory Pattern Normal Normal Blood Pressure 160/72 H Blood Pressure Mean 101 Pulse Ox 93 Oxygen Delivery Method Room Air Room Air Oxygen Flow Rate (L/min) 01/21/23 16:29 01/21/23 18:05 01/21/23 19:24 Temperature 98.3 F Temperature Source Oral Pulse Rate 86 82 Respiratory Rate 23 H 20 H Respiratory Effort Respiratory Depth Respiratory Pattern Blood Pressure 120/109 H 143/93 H Blood Pressure Mean 112 109 Pulse Ox 95 90 Oxygen Delivery Method Room Air Nasal Cannula Nasal Cannula Oxygen Flow Rate (L/min) 2 2 01/21/23 19:25 Temperature Temperature Source Pulse Rate 82 Respiratory Rate 21 H Respiratory Effort Respiratory Depth Respiratory Pattern Blood Pressure 143/93 H Blood Pressure Mean 109 Pulse Ox 94 Oxygen Delivery Method Oxygen Flow Rate (L/min) Positive well nourished and obese General Appearance ED: NAD; Negative for pallor Nutritional Appearance: obese HEENT Reports moist mucous membranes Eyes PERRL Neck no lymphadenopathy, supple and no meningeal signs Resp normal respiratory effort Auscultation: wheezes expiratory wheezes Cardio regular rate Rate: tachycardic GI non-tender Extremity normal to inspection General Extremety ED: Negative for edema or tenderness General Extremity: Negative for edema Neuro oriented x3 and CN's II-XII intact bilaterally Sensorium / Orientation: alert Motor Exam: general weakness Psych mental status grossly normal Skin no wounds General Skin Exam: Negative for jaundice or pallor MDM MDM MDM Narrative Medical decision making narrative: 57-year-old male with a history of COPD presenting with wheezing and shortness of breath after being diagnosed with COVID. She is on day 5 currently. She is outside the treatment window for anything. Chest x-ray was obtained and on my interpretation shows no acute process. Patient was given breathing treatments and prednisone. I will ambulate her with pulse ox because the urgent care note states she was 88% although she is 93 here. Patient was ambulated and dropped to 85%. At this point blood work was obtained CBC was obtained to assess white blood cell count, hemoglobin, platelets. BMP to assess renal function and electrolytes. LFTs to assess liver function, high-sensitivity troponin and EKG were obtained to assess for ischemia/dysrhythmia. D-dimer was negative. CBC shows mild leukocytosis at 11.6. Hemoglobin stable at 13.8. Platelets are normal at 227. Renal function and electrolytes within normal limits. LFTs unremarkable. High-sensitivity troponin is 3. EKG on my interpretation shows anormal sinus rhythm with a ventricular rate of 84 bpm without sign of ischemic change or ectopy on my interpretation. Chest x-ray on my interpretation shows what looks like bibasilar infiltrates. D-dimer was elevated so CTA of the chestwas obtained which shows what looks like viral pneumonia and the radiologist also states there might be some edema. Given hypoxia the patient will be admitted to the hospital. She was already given steroids. Impression: 1. COVID-19 2. Hypoxia Lab Data Attestation: I reviewed the patient's lab results. Labs: Laboratory Results - last 24 hr 01/21/23 17:16 WBC 11.6 H RBC 5.10 Hgb 13.8 Hct 44.5 MCV 87.3 MCH 27.1 MCHC 31.0 L RDW Std Deviation 48.1 H RDW Coeff of Luiz 15.2 H Plt Count 227 MPV 10.0 Immature Gran % (Auto) 0.300 Neut % (Auto) 59.1 Lymph % (Auto) 32.2 Jewell % (Auto) 5.2 Eos % (Auto) 2.9 Baso % (Auto) 0.3 Absolute Neuts (auto) 6.8 Absolute Lymphs (auto) 3.72 Nucleated RBC % 0 D-Dimer Quant (PE/DVT) 0.75 H* Sodium 140 Potassium 3.7 Chloride 106 Carbon Dioxide 29.0 Anion Gap 5 BUN 16 Creatinine 0.79 Estim Creat Clear Calc 62.89 Est GFR (MDRD) Af Amer 97 Est GFR (MDRD) Non-Af 80 BUN/Creatinine Ratio 20.3 H Glucose 150 H Calcium 9.4 Total Bilirubin 0.20 AST 22 ALT 55 Alkaline Phosphatase 87 Troponin I High Sens 3 Total Protein 7.4 Albumin 3.6 Globulin 3.8 Albumin/Globulin Ratio 0.9 Radiography Diagnostic Testing: Clinical Impression(s) from Imaging Studies Chest X-Ray 01/21/23 15:45 IMPRESSION: Mild nonspecific interstitial thickening in the lower lobes which may be consistent with viral pneumonia.. Electronically Signed: Deepak Rodriguez MD at 16:49 EDT , Chest CTA 01/21/23 17:54 IMPRESSION: Findings which may be consistent with clinical history: 19 pneumonia and possibly superimposed mild pulmonary interstitial edema.. Limited study of the pulmonary arteries without definitive evidence for pulmonary embolus Electronically Signed: Deepak Rodriguez MD at 18:43 EDT , Discharge Plan Triage Chief Complaint: Shortness of Breath ED Provider: Thomas Mayfield Dx/Rx/DC Orders Prescriptions: No Action rivaroxaban 20 MG tablet 20 mg PO DAILY Patient Comments: Blood thinner pregabalin [Lyrica] 300 mg capsule 300 mg PO BID multivitamin [Daily Multi-Vitamin] Tablet 1 tab PO DAILY montelukast 10 mg tablet 10 mg PO QPM Qty: 30 5RF Farxiga 5 mg tablet 5 mg PO DAILY insulin glargine [Lantus Solostar U-100 Insulin] 100 unit/mL (3 mL) insulin pen 60 unit subcut BID omega-3 acid ethyl esters 1 gram capsule 2 cap PO BID diclofenac sodium 75 mg tablet,delayed release (DR/EC) 75 mg PO BID Hold Instructions: Hold it while taking Xarelto. venlafaxine 150 mg capsule,extended release 24hr 300 mg PO QHS bupropion HCl 150 mg tablet sustained-release 12 hr 150 mg PO BID albuterol sulfate 2.5 mg /3 mL (0.083 %) solution for nebulization 2.5 mg INHALATION Q6H PRN (Reason: SHORTNESS OF BREATH ) Qty: 180 3RF loratadine 10 mg tablet 10 mg PO DAILY Qty: 90 3RF atenolol 100 MG tablet 100 mg PO DAILY Patient Comments: Blood pressure/heart rate omeprazole 40 MG capsule,delayed release(DR/EC) 40 mg PO DAILY Patient Comments: Acid reflux alprazolam 0.5 MG tablet 0.5 mg PO BID PRN PRN (Reason: Anxiety) Patient Comments: Anxiety pravastatin 40 MG tablet 40 mg PO QHS Patient Comments: Cholesterol docusate sodium 100 MG capsule 200 mg PO BID Patient Comments: Stool softener glimepiride 4 MG tablet 4 mg PO DAILY Patient Comments: diabetes quetiapine 100 MG tablet 100 mg PO QHS trazodone 50 MG tablet 50 mg PO QHS acetaminophen 650 mg Tablet Extended Release 1,300 mg PO Q8H metformin 500 mg tablet extended release 24 hr 1,000 mg PO BID polyethylene glycol 3350 17 gram Powder In Packet 17 g PO DAILY Qty: 0 0RF Hold Instructions: Pt has been DC'd sennosides-docusate sodium [Stool Softener-Stimulant Laxat] 8.6-50 mg Tablet 2 tab PO BID Qty: 0 0RF insulin lispro [Humalog KwikPen Insulin] 100 unit/mL Insulin Pen See Protocol subcut ACHS Qty: 15 2RF Protocol: 5. Sliding Scale Insulin High Dosing Condition: 150-209 mg/dl = 3 units Condition: 210-259 mg/dl = 6 units Condition: 260-324 mg/dl = 9 units Condition: 325-374 mg/dl = 12 units Condition: 375-409 mg/dl = 14 units Condition: 410-449 mg/dl = 16 units Condition: Greater than 449 call physician Protocol Text: - Use for Total Daily Dose of Insulin 81-120 units - Very insulin resistant or septic patients HIGH DOSING ALGORITHM ferrous sulfate 325 MG tablet 325 mg PO DAILY Qty: 30 0RF Patient Comments: Iron supplement oxycodone 5 mg Tablet 5 mg PO Q6H PRN PRN (Reason: Pain) 4 Days Qty: 14 0RF Hold Instructions: Pt has been DC'd furosemide 40 mg tablet 40 mg PO DAILY Qty: 30 11RF guaifenesin 1,200 mg tablet extended release 12hr 1,200 mg PO Q12H Qty: 60 6RF fluticasone propion-salmeterol [AirDuo RespiClick] 232-14 mcg/actuation aerosol powdr breath activated 1 inh INHALATION BID Qty: 1 6RF Hold Instructions: Pt has been DC'd Incruse Ellipta 62.5 mcg/actuation blister with device 1 inh INHALATION DAILY Qty: 30 6RF albuterol sulfate 90 mcg/actuation HFA aerosol inhaler 2 puff INHALATION Q6H PRN (Reason: shortness of breath or wheezing) Qty: 18 6RF Primary Care Provider: Pk Sloan Referrals: Pk Sloan DO [Primary Care Provider] - What to do if you have Problems For any increased pain, shortness of breath, bleeding, nausea or vomiting, chestpain, or any unexpected problems, contact your Primary Care Provider. Call [facility] ([phone]) or report to the closest Emergency Room. Call 911 if necessary. 01/21/231943 <Electronically signed by Thomas Mayfield DO> Cosigner Signature (if applicable): CC: Dr. Pk Sloan DO ~ Signed [facility] Work Phone: 1(718) 818-560510-20-2023 Discharge summary Author Thomas Mayfield [facility] January 21, 2023 7:44pm Note Date/Time January 21, 2023 4 :16pm [facility] Medical Records Department [address] [place] [address] Emergency Department Summary 01/21/23 MR#: [id number] Acct: [id number] Name: KAMINI IRBY Rep #:[id number] 1 : 1965 57 From: Thomas Mayfield DO PCP: Dr. Pk Sloan, DO Status:REG ER Location: ED HPI History of Present Illness Chief Complaint: Shortness of Breath Narrative Narrative: 57-year-old female presenting after being diagnosed with COVID at the urgent care she states they told her to come over to the emergency room because she hasa history of COPD. Patient is not having any chest pain. She has shortness of breath which is chronic. She feels generally fatigued and has generalized weakness. Apparently she had a pulse ox of 88% which rebounded. She is currently 93%. She does have some wheezing. [facility] Medical History Anemia Anxiety Anxiety disorder Arthritis Asthma Back pain Bronchitis Cardiology follow-up encounter Chronic back pain Chronic cough Chronic hypoxemic respiratory failure Chronic sinusitis COPD exacerbation COPD, frequent exacerbations Costal chondritis CPAP (continuous positive airway pressure) dependence Depression Diabetes DVT (deep venous thrombosis) Emphysema, unspecified Essential hypertension Excessive bleeding Fibromyalgia Gastric reflux GERD (gastroesophageal reflux disease) Healthcare-associated pneumonia History of CHF (congestive heart failure) History of DVT of lower extremity History of echocardiogram History of edema History of pulmonary embolus (PE) History of steroid therapy Insulin dependent diabetes mellitus Itching Leg cramps Livedo reticularis Morbid (severe) obesity due to excess calories Nicotine dependence, uncomplicated Normal stress echocardiogram Obstructive sleep apnea On home oxygen therapy Open wound Osteoarthritis of right hip Otitis media Patient's noncompliance with other medical treatment and regimen Personal history of thromboembolic disease Post-menopausal Pulmonary embolism Rheumatoid arthritis Shortness of breath Sleep apnea Smoker TIA (transient ischemic attack) Tobacco dependence syndrome Tubal Type 2 diabetes mellitus Wears glasses Home Medications alprazolam 0.5 mg tablet 0.5 mg PO BID PRN PRN Anxiety 12/15/13 [History Last Taken 06/04/22 05:00] atenolol 100 mg tablet 100 mg PO DAILY blood pressure 12/15/13 [History Last Taken 06/04/22 05:00] omeprazole 40 mg capsule,delayed release 40 mg PO DAILY GERD 12/15/13 [History Last Taken 06/03/22] pravastatin 40 mg tablet 40 mg PO QHS cholesterol 03/17/14 [History Last Taken 06/03/22] glimepiride 4 mg tablet 4 mg PO DAILY diabetes 04/23/15 [History Last Taken 06/03/22] docusate sodium 100 mg capsule 200 mg PO BID Constipation 03/10/17 [History Last Taken 06/03/22] pregabalin 300 mg capsule (Lyrica) 300 mg PO BID nerve pain 03/10/17 [History Last Taken 06/03/22] rivaroxaban 20 mg tablet 20 mg PO DAILY blood thinner 03/10/17 [History Last Taken 06/02/22 17:00] quetiapine 100 mg tablet 100 mg PO QHS sleep 12/12/17 [History Last Taken 06/03/22] trazodone 50 mg tablet 50 mg PO QHS sleep 12/13/17 [History Last Taken 06/03/22] montelukast 10 mg tablet 10 mg PO QPM #30 tabs 12/26/20 [Rx Last Taken 06/03/22] multivitamin (Daily Multi-Vitamin tablet) 1 tab PO DAILY 12/26/20 [History Last Taken 06/03/22] bupropion HCl 150 mg tablet,12 hr sustained-release 150 mg PO BID 11/27/21 [History Last Taken 06/03/22] dapagliflozin propanediol 5 mg tablet (Farxiga) 5 mg PO DAILY 11/27/21 [History Last Taken 06/03/22] diclofenac sodium 75 mg tablet,delayed release 75 mg PO BID 11/27/21 [History Last Taken 06/03/22] insulin glargine 100 unit/mL (3 mL) subcutaneous pen (Lantus Solostar U-100 Insulin) 60 unit subcut BID 11/27/21 [History Last Taken 06/03/22 06:00] omega-3 acid ethyl esters 1 gram capsule 2 cap PO BID 11/27/21 [History Last Taken 06/03/22] venlafaxine 150 mg capsule,extended release 24 hr 300 mg PO QHS 11/27/21 [History Last Taken Unknown] furosemide 40 mg tablet 40 mg PO DAILY #30 tabs 04/20/22 [Rx Last Taken 06/03/22] albuterol sulfate 2.5 mg/3 mL (0.083 %) solution for nebulization 2.5 mg (3 mL) inhalation Q6H PRN SHORTNESS OF BREATH #180 vials 04/29/22 [Rx Last Taken 06/04/22] loratadine 10 mg tablet 10 mg PO DAILY #90 tabs 04/29/22 [Rx Last Taken 06/03/22] acetaminophen 650 mg tablet,extended release 1,300 mg PO Q8H 05/31/22 [History Last Taken Unknown] metformin 500 mg tablet,extended release 24 hr 1,000 mg PO BID 05/31/22 [History Last Taken 06/02/22] ferrous sulfate 325 mg (65 mg iron) tablet 325 mg PO DAILY #30 tabs 06/08/22 [Rx Last Taken 06/03/22] insulin lispro 100 unit/mL subcutaneous pen (Humalog KwikPen (U-100) Insulin) See Protocol subcut ACHS #15 mL 06/08/22 [Rx Last Taken Unknown] oxycodone 5 mg tablet 5 mg PO Q6H PRN PRN Pain 4 days #14 tabs 06/08/22 [Rx Last Taken Unknown] polyethylene glycol 3350 17 gram oral powder packet 17 g PO DAILY #0 ea 06/08/22[Rx Last Taken Unknown] sennosides 8.6 mg-docusate sodium 50 mg tablet (Stool Softener-Stimulant Laxative) 2 tab PO BID #0 tabs 06/08/22 [Rx Last Taken Unknown] guaifenesin 1,200 mg tablet, extended release 12 hr 1,200 mg PO Q12H #60 tabs 12/28/22 [Rx Last Taken Unknown] fluticasone 232 mcg-salmeterol 14 mcg/actuation breath activated powdr (AirDuo RespiClick) 1 inh inhalation BID #1 ea 12/30/22 [Rx Last Taken Unknown] umeclidinium 62.5 mcg/actuation blister powder for inhalation (Incruse Ellipta) 1 inh inhalation DAILY #30 ea 12/30/22 [Rx Last Taken Unknown] albuterol sulfate 90 mcg/actuation aerosol inhaler 2 puff inhalation Q6H PRN shortness of breath or wheezing #18 grams 01/10/23 [Rx Last Taken Unknown] Allergy/AdvReac Type Severity Reaction Status Date / Time enoxaparin sodium Allergy Mild Itching Verified 01/21/23 15:07 [From Lovenox] heparin Allergy Itching Verified 01/21/23 15:07 varenicline [From Chantix] AdvReac Intermediate MENTAL Verified 01/21/23 15:07 ISSUES arthromycin Allergy Mild Itching Uncoded 01/21/23 15:07 Family History Other No pertinent family history Surgical History History of tubal ligation Hx of surgical procedure No pertinent past surgical history Social History Smoking Status: Current every day smoker tobacco type: cigarettes alcohol intake: never substance use type: does not use caffeine: Yes Type: coffee Number of servings: 5 ROS ROS ED Constitutional Constitutional ED: Reports chills and sweats; Denies fever(s) Eyes Eyes: Denies blurry vision or change in vision ENT ENT ED: Denies ear pain or sore throat Cardiovascular Cardiovascular: Denies chest pain, palpitations or racing heartbeat Respiratory/Chest Respiratory/Chest: Reports cough, dyspnea and dyspnea on exertion; Denies sputum Gastrointestinal Gastrointestinal: Denies abdominal pain, constipation, diarrhea, nausea or vomiting Genitourinary Genitourinary ED: Denies dysuria, hematuria or urinary frequency Musculoskeletal Musculoskeletal: Denies arthralgias, myalgias or neck pain Integumentary Denies abscess, Abrasions or rash Neurologic Neurologic: Denies headache(s), paresthesias or weakness Psychiatric Psychiatric: Denies anxiety, depression, suicidal ideation or suicidal thoughts Endocrine Endocrinology: Denies polydipsia or polyuria EXAM Physical Exam Const Vital Signs: 01/21/23 15:07 01/21/23 16:17 01/21/23 16:29 Temperature 96.5 F L Temperature Source Temporal Pulse Rate 79 81 Respiratory Rate 18 22 H Respiratory Effort Short of Breath Respiratory Depth Normal Respiratory Pattern Normal Normal Blood Pressure 160/72 H Blood Pressure Mean 101 Pulse Ox 93 Oxygen Delivery Method Room Air Room Air Oxygen Flow Rate (L/min) 01/21/23 16:29 01/21/23 18:05 01/21/23 19:24 Temperature 98.3 F Temperature Source Oral Pulse Rate 86 82 Respiratory Rate 23 H 20 H Respiratory Effort Respiratory Depth Respiratory Pattern Blood Pressure 120/109 H 143/93 H Blood Pressure Mean 112 109 Pulse Ox 95 90 Oxygen Delivery Method Room Air Nasal Cannula Nasal Cannula Oxygen Flow Rate (L/min) 2 2 01/21/23 19:25 Temperature Temperature Source Pulse Rate 82 Respiratory Rate 21 H Respiratory Effort Respiratory Depth Respiratory Pattern Blood Pressure 143/93 H Blood Pressure Mean 109 Pulse Ox 94 Oxygen Delivery Method Oxygen Flow Rate (L/min) Positive well nourished and obese General Appearance ED: NAD; Negative for pallor Nutritional Appearance: obese HEENT Reports moist mucous membranes Eyes PERRL Neck no lymphadenopathy, supple and no meningeal signs Resp normal respiratory effort Auscultation: wheezes expiratory wheezes Cardio regular rate Rate: tachycardic GI non-tender Extremity normal to inspection General Extremety ED: Negative for edema or tenderness General Extremity: Negative for edema Neuro oriented x3 and CN's II-XII intact bilaterally Sensorium / Orientation: alert Motor Exam: general weakness Psych mental status grossly normal Skin no wounds General Skin Exam: Negative for jaundice or pallor MDM MDM MDM Narrative Medical decision making narrative: 57-year-old male with a history of COPD presenting with wheezing and shortness of breath after being diagnosed with COVID. She is on day 5 currently. She is outside the treatment window for anything. Chest x-ray was obtained and on my interpretation shows no acute process. Patient was given breathing treatments and prednisone. I will ambulate her with pulse ox because the urgent care note states she was 88% although she is 93 here. Patient was ambulated and dropped to 85%. At this point blood work was obtained CBC was obtained to assess white blood cell count, hemoglobin, platelets. BMP to assess renal function and electrolytes. LFTs to assess liver function, high-sensitivity troponin and EKG were obtained to assess for ischemia/dysrhythmia. D-dimer was negative. CBC shows mild leukocytosis at 11.6. Hemoglobin stable at 13.8. Platelets are normal at 227. Renal function and electrolytes within normal limits. LFTs unremarkable. High-sensitivity troponin is 3. EKG on my interpretation shows anormal sinus rhythm with a ventricular rate of 84 bpm without sign of ischemic change or ectopy on my interpretation. Chest x-ray on my interpretation shows what looks like bibasilar infiltrates. D-dimer was elevated so CTA of the chestwas obtained which shows what looks like viral pneumonia and the radiologist also states there might be some edema. Given hypoxia the patient will be admitted to the hospital. She was already given steroids. Impression: 1. COVID-19 2. Hypoxia Lab Data Attestation: I reviewed the patient's lab results. Labs: Laboratory Results - last 24 hr 01/21/23 17:16 WBC 11.6 H RBC 5.10 Hgb 13.8 Hct 44.5 MCV 87.3 MCH 27.1 MCHC 31.0 L RDW Std Deviation 48.1 H RDW Coeff of Luiz 15.2 H Plt Count 227 MPV 10.0 Immature Gran % (Auto) 0.300 Neut % (Auto) 59.1 Lymph % (Auto) 32.2 Jewell % (Auto) 5.2 Eos % (Auto) 2.9 Baso % (Auto) 0.3 Absolute Neuts (auto) 6.8 Absolute Lymphs (auto) 3.72 Nucleated RBC % 0 D-Dimer Quant (PE/DVT) 0.75 H* Sodium 140 Potassium 3.7 Chloride 106 Carbon Dioxide 29.0 Anion Gap 5 BUN 16 Creatinine 0.79 Estim Creat Clear Calc 62.89 Est GFR (MDRD) Af Amer 97 Est GFR (MDRD) Non-Af 80 BUN/Creatinine Ratio 20.3 H Glucose 150 H Calcium 9.4 Total Bilirubin 0.20 AST 22 ALT 55 Alkaline Phosphatase 87 Troponin I High Sens 3 Total Protein 7.4 Albumin 3.6 Globulin 3.8 Albumin/Globulin Ratio 0.9 Radiography Diagnostic Testing: Clinical Impression(s) from Imaging Studies Chest X-Ray 01/21/23 15:45 IMPRESSION: Mild nonspecific interstitial thickening in the lower lobes which may be consistent with viral pneumonia.. Electronically Signed: Deepak Rodriguez MD at 16:49 EDT , Chest CTA 01/21/23 17:54 IMPRESSION: Findings which may be consistent with clinical history: 19 pneumonia and possibly superimposed mild pulmonary interstitial edema.. Limited study of the pulmonary arteries without definitive evidence for pulmonary embolus Electronically Signed: Deepak Rodriguez MD at 18:43 EDT , Discharge Plan Triage Chief Complaint: Shortness of Breath ED Provider: Thomas Mayfield Dx/Rx/DC Orders Prescriptions: No Action rivaroxaban 20 MG tablet 20 mg PO DAILY Patient Comments: Blood thinner pregabalin [Lyrica] 300 mg capsule 300 mg PO BID multivitamin [Daily Multi-Vitamin] Tablet 1 tab PO DAILY montelukast 10 mg tablet 10 mg PO QPM Qty: 30 5RF Farxiga 5 mg tablet 5 mg PO DAILY insulin glargine [Lantus Solostar U-100 Insulin] 100 unit/mL (3 mL) insulin pen 60 unit subcut BID omega-3 acid ethyl esters 1 gram capsule 2 cap PO BID diclofenac sodium 75 mg tablet,delayed release (DR/EC) 75 mg PO BID Hold Instructions: Hold it while taking Xarelto. venlafaxine 150 mg capsule,extended release 24hr 300 mg PO QHS bupropion HCl 150 mg tablet sustained-release 12 hr 150 mg PO BID albuterol sulfate 2.5 mg /3 mL (0.083 %) solution for nebulization 2.5 mg INHALATION Q6H PRN (Reason: SHORTNESS OF BREATH ) Qty: 180 3RF loratadine 10 mg tablet 10 mg PO DAILY Qty: 90 3RF atenolol 100 MG tablet 100 mg PO DAILY Patient Comments: Blood pressure/heart rate omeprazole 40 MG capsule,delayed release(DR/EC) 40 mg PO DAILY Patient Comments: Acid reflux alprazolam 0.5 MG tablet 0.5 mg PO BID PRN PRN (Reason: Anxiety) Patient Comments: Anxiety pravastatin 40 MG tablet 40 mg PO QHS Patient Comments: Cholesterol docusate sodium 100 MG capsule 200 mg PO BID Patient Comments: Stool softener glimepiride 4 MG tablet 4 mg PO DAILY Patient Comments: diabetes quetiapine 100 MG tablet 100 mg PO QHS trazodone 50 MG tablet 50 mg PO QHS acetaminophen 650 mg Tablet Extended Release 1,300 mg PO Q8H metformin 500 mg tablet extended release 24 hr 1,000 mg PO BID polyethylene glycol 3350 17 gram Powder In Packet 17 g PO DAILY Qty: 0 0RF Hold Instructions: Pt has been DC'd sennosides-docusate sodium [Stool Softener-Stimulant Laxat] 8.6-50 mg Tablet 2 tab PO BID Qty: 0 0RF insulin lispro [Humalog KwikPen Insulin] 100 unit/mL Insulin Pen See Protocol subcut ACHS Qty: 15 2RF Protocol: 5. Sliding Scale Insulin High Dosing Condition: 150-209 mg/dl = 3 units Condition: 210-259 mg/dl = 6 units Condition: 260-324 mg/dl = 9 units Condition: 325-374 mg/dl = 12 units Condition: 375-409 mg/dl = 14 units Condition: 410-449 mg/dl = 16 units Condition: Greater than 449 call physician Protocol Text: - Use for Total Daily Dose of Insulin 81-120 units - Very insulin resistant or septic patients HIGH DOSING ALGORITHM ferrous sulfate 325 MG tablet 325 mg PO DAILY Qty: 30 0RF Patient Comments: Iron supplement oxycodone 5 mg Tablet 5 mg PO Q6H PRN PRN (Reason: Pain) 4 Days Qty: 14 0RF Hold Instructions: Pt has been DC'd furosemide 40 mg tablet 40 mg PO DAILY Qty: 30 11RF guaifenesin 1,200 mg tablet extended release 12hr 1,200 mg PO Q12H Qty: 60 6RF fluticasone propion-salmeterol [AirDuo RespiClick] 232-14 mcg/actuation aerosol powdr breath activated 1 inh INHALATION BID Qty: 1 6RF Hold Instructions: Pt has been DC'd Incruse Ellipta 62.5 mcg/actuation blister with device 1 inh INHALATION DAILY Qty: 30 6RF albuterol sulfate 90 mcg/actuation HFA aerosol inhaler 2 puff INHALATION Q6H PRN (Reason: shortness of breath or wheezing) Qty: 18 6RF Primary Care Provider: Pk Sloan Referrals: Pk Sloan, [Primary Care Provider] - What to do if you have Problems For any increased pain, shortness of breath, bleeding, nausea or vomiting, chestpain, or any unexpected problems, contact your Primary Care Provider. Call [facility] ([phone]) or report to the closest Emergency Room. Call 911 if necessary. 01/21/231943 <Electronically signed by Thomas Mayfield DO> Cosigner Signature (if applicable): CC: Dr. Pk Sloan DO ~ Signed [facility] Work Phone: [phone]) 957-116007-08-2023 Note. MICRO - Microbiology PROCEDURE: Blood Culture (bacterial) [...] Locations *1: This test was performed at: [address], [address] [place] [address] ([facility]10-09-2022 Note. MICRO - Microbiology PROCEDURE: Blood Culture (bacterial) [...] Locations *1: This test was performed at: [address], [address] [place] [address] ([place])10-07-2022 Note. MICRO - Microbiology PROCEDURE: Culture Wound Aerobic [...] Locations *1: This test was performed at: [facility], [address] [place] [address], [phone] , [facility] ([place])10-06-2022 NoteHNO ID: [id number] Author: Eduarda Dudley DO Service: Hospital Medicine Author Type: Physician [...] right hand cellulitis 10/[address] Dudley Clinical indicators 10/[address] Mcgee Wound Infection: Pt to ED with c/o infection to L hand 10/05 Imaging Technique: XR HAND 3V PA/LAT/OBL LT -- LEFT with 3 views on 3 images No acute findings.No radiographic evidence of osteomyelitis Please clarify the appropriate diagnosis for this patient. x Left hand cellulitis Right hand cellulitis Other, please specify [facility]07-05-2023 NoteHNO ID: [id number] Author: Angelic Knight RN Service: Care Management Author Type: [...] Physician Primary Care Physician Name/Phone: Dr Sloan [phone] Additional Information: Patient is from home with at baseline. However, has recently been staying with daughter to help with the grandchildren. Does not drive. Depends on family for transportation. 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 Uses [facility]. Patient is discharging home with self care. Family to transport. SIGNATURE: Angelic Knight RN PATIENT NAME: Kamini Irby DATE: October 06, 2022 TIME: 12:33 PM CONTA[phone]NO ID: [id number] Author: Hugo Holt RN Service: Nursing Author Type: Registered Nurse Type: Nursing Progress Note Filed: 10/06/2022 12:23 PM Note Text: Hot moist compress applied to left hand 1220: Hot moist compress applied to left hand [facility] 10-05-2022 NoteHNO ID: [id number] Author: Abdifatah Martínez MD Service: Orthopaedic Surgery [...] Abdifatah Martínez MD October 05, 2022 5:18 [facility]07-03-2023 Hospital Discharge instructions Patient Education 10/04/2022 18:12:10 [...] in hot water) to the area for 20minutes at a time. Do this three to [...] you to stop. You may use an ppos-nos-kgqoigc pain medication to control pain, unless another [...] Pus or fluid coming from the abscess 1527-1309 [employer]. [address] [place] [address]. All rights reserved. This information is not intended as a substitute for professional medical care. Always follow yourhealthcare professional's instructions. Follow Up Care 10/04/2022 13:39:54 With:KENNY TAI DO, Orthopedic Address: [address] [place] [address], [address] [place] [phone] When:2-4 days With:Go to emergency room if symptoms worsen Address:Unknown When:2-4 days With:PK SLOAN DO Address: [address] [place] [address] [place] [phone] When:2-4 days [facility] 07-03-2023 Note Discharge Instructions Thank you for allowing [facility] to assist you with your healthcare needs. The following is importantdischarge information regarding your hospital visit. Diagnosis from Today's Visit Abscess of left hand Hand injury treatment What to Do Next Instructions from Your Care Team No qualifying data available. Post Acute Orders No qualifying data available. You Need to Schedule the Following Appointments Follow Up with KENNY TAI DO, Orthopedic When Within 2-4 days Where: [address] [facility] [address] [place] [address]- [phone] Follow Up with Go to emergency room if symptoms worsen When Within 2-4 days Follow Up with PK SLOAN DO When Within 2-4 days Where: [facility] [facility] [place] [address]- [phone] Allergies Chantix (Unknown) Lovenox Medications Please ask your primary doctor or pharmacist before taking any other medication not listed, including over the counter drugs, herbal medications, vitamins and or supplements as they may interact withur home medications. What How Much When Why [...] Duration: 90 Days Unchanged Misc Medication (ONETOUCH IRIS ULTRA BL) Unchanged montelukast (montelukast 10 mg [...] combination antibiotic used to treat ear infections, urinarytract infections, bronchitis, traveler's diarrhea, shigellosis, and Pneumocystis jiroveci pneumonia. Sulfamethoxazole and trimethoprim may also be used for purposes not listed in this medication guide. What should I discuss with my healthcare provider before using sulfamethoxazole and trimethoprim? You should not use this medicine if you are allergic to sulfamethoxazole or trimethoprim, or if youhave: severe liver disease; kidney disease that is [...] blood sodium or high potassium); porphyria, or smkuggv-3-blefyeqcc dehydrogenase (G6PD) deficiency; or if you use [...] it. Call your pharmacist if the medicine lookscloudy, has changed colors, or has particles in [...] that can affect many parts of your body.Symptoms may include: skin rash, fever, swollen glands, [...] may report side effects to FDA at 4-220-POO-[phone]. What other drugs will affect sulfamethoxazole and trimethoprim? You may need more frequent check-ups or medical tests if you also use medicine to treat depression,diabetes, seizures, or HIV. Tell your doctor about all your current medicines. Many drugs can affect sulfamethoxazole and trimethoprim, especially: amantadine, digoxin, cyclosporine, indomethacin, leucovorin, methotrexate, procainamide, pyrimethamine; an 'ALLEN inhibitor' heart or blood presure medication (benazepril, enalapril, lisinopril, quinapril,ramipril, and others); or a diuretic or 'water pill'. This list is not complete and many other drugs may affect sulfamethoxazole and trimethoprim. This includes prescription and zniq-wpi-rvxocye medicines, vitamins, and herbal products. Not all possibledrug interactions are listed here. Where can I get more information? Your pharmacist can provide more information about sulfamethoxazole and trimethoprim. Remember, keep this and all other medicines out of the reach of children, never share your medicines with others, and use this medication only for the indication prescribed. Every effort has been made to ensure that the information provided by [employer]. ('[employer]') is accurate, up-to-date, and complete, but no guarantee is made to that effect. Drug information contained herein may be time sensitive. [employer] information has been compiled for use by healthcare practitioners and consumers in the [place] and therefore [employer] does not warrant that uses outside of the [place] are appropriate, unless specifically indicated otherwise. [employer] drug information does not endorse drugs, diagnose patients or recommend therapy. [employer] drug information isan informational resource designed to assist licensed healthcare practitioners in caring for their p atients and/or to serve consumers viewing this service as a supplement to, and not a substitute for, the expertise, skill, knowledge and judgment of healthcare practitioners. The absence of a warningfor a given drug or drug combination in no way should be construed to indicate that the drug or drug combination is safe, effective or appropriate for any given patient. [facility] does not assume any responsibility for any aspect of healthcare administered with the aid of information [employer] provides. The information contained herein is not intended to cover all possible uses, directions, precautions, warnings, drug interactions, allergic reactions, or adverse effects. If you have questions about the drugs you are taking, check with your doctor, nurse or pharmacist. Copyright 4839-3444 [employer]. Version: 02.03. Revision Date: 12/01/2020. Education Materials [...] in hot water) to the area for 20minutes at a time. Do this three to [...] you to stop. You may use an ouss-tdp-clhouvz pain medication to control pain, unless another [...] Pus or fluid coming from the abscess 1383-6581 [employer]. [address] [place] [address]. All rights reserved. This information is not intended as a substitute for professional medical care. Always follow yourhealthcare professional's instructions. Additional Information VACCINATE! IT SAVES LIVES! Members of the community who have not yet received the COVID-19 vaccine and would like to receive it can visit one of [facility] vaccine clinics. There are many vaccine clinic locations within the [facility]. For locations and available times, please visit www.gettheshot.coronavirus.[place].gov/. It is important to note that some COVID mobile vaccine clinics are held outdoors and may be canceled in rainy or stormy conditions. To learn more about pediatric vaccinations (ages 5-11), we invite you to visit the [facility] webpage. https://www.Snip2Codes.org/pages/4352-Ikpgw-Ktbnicjkqea-Gbxxhvoski-Edvfg-Njo stions.htmlTo learn more about the COVID-19 vaccine, we invite you to visit the CDC website for a list of frequently asked questions. https://www.cdc.gov/coronavirus/2019-ncov/vaccines/faq.html [facility] Patient Portal Access Instructions: Stay connected with your healthcare team and access your personal medical information anytime with the [facility] Patient Portal. If you would like a full copy of your medical records please contact the [facility] Medical Records Department Tuesday through Tuesday between 8a.m. and 4:30p.m. Please follow the directions below to access the portal: 1.Access the email account you provided upon registration to the [facility].2.Look for an invitation email from [facility].3.Open the email and access the invitation link: Accept Invitation to [facility]4.Fill in the required ruth to create your account. Sign into www.[employer] with your username and password that you [...] you will allow to register on the [facility] Patient Portal for access to your information. You can also access the [facility] Patient Portal on the pic5. Simply click on Health Records under [employer] and then click on the [employer] logo. HOW TO SAFELY DISPOSE OF PRESCRIPTION MEDICATIONS Please use one of the following methods to safely dispose of your unused medications. 1.Use a drug disposal kit: the drug disposal pouch allows you to safely discard your old and unuseddrugs. Ask your nurse to give you one when you are discharged.2.Visit a local take-back location: Many local pharmacies and police departments have programs that collect old and unwanted prescriptiondrugs. Call your local pharmacy or go to http://BCKSTGR.Negorama/5I9Oi4y to find one close to you.3.Make use of household items: Use cat litter or old coffee grounds to dispose medications if other options arenot available. Mix your drugs with these household products, seal them in an airtight container andthrow it into the garbage. Call [facility]: [phone] to be sure your drugs can be [...] drowsiness, such as benzodiazepines, also known as benzos,including diazepam and alprazolam, muscle relaxants or sleep aids. Never sell or share prescriptionopioids. This is illegal. Store opioids in a [...] and understand these discharge instructions. I have receiveda written copy of the plan/instructions. If I have questions, I am aware that I should contact my do ctor. 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 Kulkarni [facility] June 08, 2022 1:18pm Note Date/Time June 08, 2022 1:18 pm [facility] Medical Records Department [address] [place] [address] Transfer to [facility] MR#: [id number] Acct: [id number] Name: KAMINI IRBY Rep #:[id number] : 1965 56 From: Deepak Kulkarni DPM PCP: Dr. Pk Sloan, DO Status:ADM BIBI Certification of patient admission REQUIRED AT TIME OF ADMISSION. I CERTIFY THAT POST-HOSPITAL ECF SERVICES ARE REQUIRED TO BE GIVEN ON AN IN-PATIENT BASIS BECAUSE OF THE ABOVE NAMED PATIENT'S NEED FOR [facility] CARE ON A CONTINUING BASIS FOR THE CONDITION(S) FOR WHICH HE/SHE WAS RECEIVING IN-PATIENT HOSPITAL SERVICES PRIOR TO HIS/HER TRANSFER TO THE [facility]. 06/08/22 1318<Electronically signed by Deepak Kulkarni DPM> Diet Diet Order/Speech Therapy: 06/04/22 08:50 Diet: Consistent Carb - Calorie Controlled How many daily calories?: 1800 calorie Wound(s) LEFT FOOT: Wound Type: surgical incision to the left great toe with pin Dressing Change: betadine with Adaptic (Left foot: change dressing daily -paint betadine to incision site and pin site, apply overlying gauze, kerlix and allen bandage.) rt hand: Wound Type: open scabs Rt foot-small toe: Wound Type: scab rt arreaga: Wound Type: scabs Therapies Weight Bearing: Non weight bearing (no weightbearing left foot.) Extremity Affected:: Left Lower (Keep left foot elevated at least 50 minutes of every hour.) Problem/Diagnosis (1) Type 2 diabetes mellitus with foot ulcer: Status: Acute Code(s): E11.621 - Type 2 diabetes mellitus with foot ulcer; L97.509 - Non-pressure chronic ulcer of other part of unspecified foot with unspecified severity Plan Patient seen and evaluated. Patient is s/p left foot Merino arthroplasty on 06/04/22 without complication. Dressings taken down and surgical site inspected. Skin well coapted with intactsutures. Steinmann pin emerging from distal hallux, pin cap is out of position. Surgical site demonstrates no signs of infection. Dressing changed today consisting of Betadine, Adaptic, 4 x 4 gauze, Kerlix, Acewrap rolled onto the foot. No weightbearing left foot. Keep left foot elevated. SCD left lower extremity. Patient is on Xarelto 20mg daily due to her history of blood clots. Pain management: Acetaminophen and Oxyir as needed Antibiotic Propylaxis: Cefazolin 1g IV q 8 hours for 24 hours, then ok to d/c. Patient has finished antibiotic. Hospitalist medicine consulted for diabetes and other medical problems - appreciate assistance. Case management consulted for nursing facility placement. Please do not hesitate to call for any questions or concerns Allergies/Procedures Done in Hospital Allergies azithromycin Allergy (Mild, Verified 06/04/22 12:24) Hives enoxaparin sodium [From Lovenox] Allergy (Mild, Verified 06/04/22 12:24) Itching heparin Allergy (Verified 06/04/22 12:24) Itching varenicline [From Chantix] Adverse Reaction (Intermediate, Verified 06/04/22 12:24) MENTAL ISSUES MADE ME GO CRAZY, PUT ME IN THE MENTAL HOSPITAL Type of Care/Length of Stay Estimated LOS: Convalescent Care Less Than 30 days Type of Care Needed: Skilled Rehab Potential: Good Prognosis: Good Additional Orders/Day of Discharge Day of Discharge: 06/08/22 Follow Up Care Please Follow Up With: Deepak Kulkarni DPM When: 1 week, [facility]. Follow up sooner if needed. Discharge Plan Admission Admit Date/Time: 06/04/22 08:47 Attending Provider: Deepak Kulkarni Primary Care Provider: Pk Sloan Consulting Providers: Ashok Robles Discharge Orders/Prescriptions Prescriptions: New polyethylene glycol 3350 17 gram Powder In Packet 17 g PO DAILY Qty: 0 0RF sennosides-docusate sodium [Stool Softener-Stimulant Laxat] 8.6-50 mg Tablet 2 tab PO BID Qty: 0 0RF insulin lispro [Humalog KwikPen Insulin] 100 unit/mL Insulin Pen See Protocol subcut ACHS Qty: 15 2RF Protocol: 5. Sliding Scale Insulin High Dosing Condition: 150-209 mg/dl = 3 units Condition: 210-259 mg/dl = 6 units Condition: 260-324 mg/dl = 9 units Condition: 325-374 mg/dl = 12 units Condition: 375-409 mg/dl = 14 units Condition: 410-449 mg/dl = 16 units Condition: Greater than 449 call physician Protocol Text: - Use for Total Daily Dose of Insulin 81-120 units - Very insulin resistant or septic patients HIGH DOSING ALGORITHM oxycodone 5 mg Tablet 5 mg PO Q6H PRN PRN (Reason: Pain) 4 Days Qty: 14 0RF Continued rivaroxaban 20 MG tablet 20 mg PO DAILY Label Comments: Blood thinner pregabalin [Lyrica] 300 mg capsule 300 mg PO BID multivitamin [Daily Multi-Vitamin] Tablet 1 tab PO DAILY montelukast 10 mg tablet 10 mg PO QPM Qty: 30 5RF Farxiga 5 mg tablet 5 mg PO DAILY insulin glargine [Lantus Solostar U-100 Insulin] 100 unit/mL (3 mL) insulin pen 60 unit subcut BID omega-3 acid ethyl esters 1 gram capsule 2 cap PO BID venlafaxine 150 mg capsule,extended release 24hr 300 mg PO QHS bupropion HCl 150 mg tablet sustained-release 12 hr 150 mg PO BID albuterol sulfate 90 mcg/actuation HFA aerosol inhaler 2 puff INHALATION Q6H PRN (Reason: shortness of breath or wheezing) Qty: 18 6RF albuterol sulfate 2.5 mg /3 mL (0.083 %) solution for nebulization 2.5 mg INHALATION Q6H PRN (Reason: SHORTNESS OF BREATH ) Qty: 180 3RF fluticasone propion-salmeterol [AirDuo RespiClick] 232-14 mcg/actuation aerosol powdr breath activated 1 inh INHALATION BID Qty: 1 6RF guaifenesin 1,200 mg tablet extended release 12hr 1,200 mg PO Q12H Qty: 60 6RF loratadine 10 mg tablet 10 mg PO DAILY Qty: 90 3RF atenolol 100 MG tablet 100 mg PO DAILY Label Comments: Blood pressure/heart rate omeprazole 40 MG capsule,delayed release(DR/EC) 40 mg PO DAILY Label Comments: Acid reflux alprazolam 0.5 MG tablet 0.5 mg PO BID PRN PRN (Reason: Anxiety) Label Comments: Anxiety pravastatin 40 MG tablet 40 mg PO QHS Label Comments: Cholesterol docusate sodium 100 MG capsule 200 mg PO BID Label Comments: Stool softener glimepiride 4 MG tablet 4 mg PO DAILY Label Comments: diabetes quetiapine 100 MG tablet 100 mg PO QHS trazodone 50 MG tablet 50 mg PO QHS acetaminophen 650 mg Tablet Extended Release 1,300 mg PO Q8H metformin 500 mg tablet extended release 24 hr 1,000 mg PO BID Incruse Ellipta 62.5 mcg/actuation blister with device 1 inh INHALATION DAILY furosemide 40 mg tablet 40 mg PO DAILY Qty: 30 11RF Changed ferrous sulfate 325 MG tablet 325 mg PO DAILY Qty: 30 0RF Label Comments: Iron supplement Held diclofenac sodium 75 mg tablet,delayed release (DR/EC) 75 mg PO BID Hold Instructions: Hold it while taking Xarelto. Referrals / Follow Up: Pk Sloan DO [Primary Care Provider] - Disposition Disposition (needs filled in before D/C Order can be placed): Intermediate Facility 06/08/228 <Electronically signed by Deepak Kulkarni DPM> Cosigner Signature (if applicable): CC: Dr. Ashok Robles MD; Dr. Pk Sloan DO ~ [facility] Work Phone: [phone]) 160-356803-07-[address] Kulkarni [facility] June 08, 2022 1:13pm Note Date/Time June 08, 2022 1:13 pm [facility] Medical Records Department [address] [place] [address] Discharge Summary 06/08/222 MR#: [id number] Acct: [id number] Name: KAMINI IRBY Rep #:[id number] : 1965 56 From: Deepak Kulkarni DPM PCP: Dr. Pk Sloan DO Status:ADM BIBI Location: [facility]620-7 Providers Date of Admission: 06/04/22 Primary Care Physician: Dr. Pk Sloan DO Consultations 06/04/22 08:48 Consult: Hospitalist Routine Consulting Provider: Kenny López Reason for Consult: diabetes and other medical problems EMERGENT Consult: No MD Notified: Yes Date Notified: 06/04/22 Time Notified: 12:06 Method of Notification: via text Reason For Visit: lt merino arthroplasty of 1st metatarsal phalangea Diagnosis Discharge Diagnosis (1) Type 2 diabetes mellitus with foot ulcer: Status: Acute Code(s): E11.621 - Type 2 diabetes mellitus with foot ulcer; L97.509 - Non-pressure chronic ulcer of other part of unspecified foot with unspecified severity Plan Patient seen and evaluated. Patient is s/p left foot Merino arthroplasty on 06/04/22 without complication. Dressings taken down and surgical site inspected. Skin well coapted with intactsutures. Steinmann pin emerging from distal hallux, pin cap is out of position. Surgical site demonstrates no signs of infection. Dressing changed today consisting of Betadine, Adaptic, 4 x 4 gauze, Kerlix, Acewrap rolled onto the foot. No weightbearing left foot. Keep left foot elevated. SCD left lower extremity. Patient is on Xarelto 20mg daily due to her history of blood clots. Pain management: Acetaminophen and Oxyir as needed Antibiotic Propylaxis: Cefazolin 1g IV q 8 hours for 24 hours, then ok to d/c. Patient has finished antibiotic. Hospitalist medicine consulted for diabetes and other medical problems - appreciate assistance. Case management consulted for nursing facility placement. Please do not hesitate to call for any questions or concerns Medications at Discharge Home Medications alprazolam 0.5 mg tablet 0.5 mg PO BID PRN PRN Anxiety 12/15/13 atenolol 100 mg tablet 100 mg PO DAILY blood pressure 12/15/13 omeprazole 40 mg capsule,delayed release 40 mg PO DAILY GERD 12/15/13 pravastatin 40 mg tablet 40 mg PO QHS cholesterol 03/17/14 glimepiride 4 mg tablet 4 mg PO DAILY diabetes 04/23/15 docusate sodium 100 mg capsule 200 mg PO BID Constipation 03/10/17 pregabalin 300 mg capsule (Lyrica) 300 mg PO BID nerve pain 03/10/17 rivaroxaban 20 mg tablet 20 mg PO DAILY blood thinner 03/10/17 quetiapine 100 mg tablet 100 mg PO QHS sleep 12/12/17 trazodone 50 mg tablet 50 mg PO QHS sleep 12/13/17 montelukast 10 mg tablet 10 mg PO QPM #30 tabs 12/26/20 multivitamin (Daily Multi-Vitamin tablet) 1 tab PO DAILY 12/26/20 bupropion HCl 150 mg tablet,12 hr sustained-release 150 mg PO BID 11/27/21 dapagliflozin 5 mg tablet (Farxiga) 5 mg PO DAILY 11/27/21 diclofenac sodium 75 mg tablet,delayed release 75 mg PO BID 11/27/21 insulin glargine 100 unit/mL (3 mL) subcutaneous pen (Lantus Solostar U-100 Insulin) 60 unit subcut BID 11/27/21 omega-3 acid ethyl esters 1 gram capsule 2 cap PO BID 11/27/21 venlafaxine 150 mg capsule,extended release 24 hr 300 mg PO QHS 11/27/21 furosemide 40 mg tablet 40 mg PO DAILY #30 tabs 04/20/22 albuterol sulfate 2.5 mg/3 mL (0.083 %) solution for nebulization 2.5 mg (3 mL) inhalation Q6H PRN SHORTNESS OF BREATH #180 vials 04/29/22 albuterol sulfate 90 mcg/actuation aerosol inhaler 2 puff inhalation Q6H PRN shortness of breath or wheezing #18 grams 04/29/22 fluticasone 232 mcg-salmeterol 14 mcg/actuation breath activated powdr (AirDuo RespiClick) 1 inh inhalation BID #1 ea 04/29/22 guaifenesin 1,200 mg tablet, extended release 12 hr 1,200 mg PO Q12H #60 tabs 04/29/22 loratadine 10 mg tablet 10 mg PO DAILY #90 tabs 04/29/22 acetaminophen 650 mg tablet,extended release 1,300 mg PO Q8H 05/31/22 metformin 500 mg tablet,extended release 24 hr 1,000 mg PO BID 05/31/22 umeclidinium 62.5 mcg/actuation blister powder for inhalation (Incruse Ellipta) 1 inh inhalation DAILY 05/31/22 ferrous sulfate 325 mg (65 mg iron) tablet 325 mg PO DAILY #30 tabs 06/08/22 insulin lispro 100 unit/mL subcutaneous pen (Humalog KwikPen (U-100) Insulin) See Protocol subcut ACHS #15 mL 06/08/22 oxycodone 5 mg tablet 5 mg PO Q6H PRN PRN Pain 4 days #14 tabs 06/08/22 polyethylene glycol 3350 17 gram oral powder packet 17 g PO DAILY #0 ea 06/08/22 sennosides 8.6 mg-docusate sodium 50 mg tablet (Stool Softener-Stimulant Laxative) 2 tab PO BID #0 tabs 06/08/22 Hospital Course Summary of Care Provided Hospital Course: Patient underwent left foot surgery on Tuesday06/04/22 without complication. She was admitted and has done well, she will be discharged to nursing facility. Physical Exam Narrative see my podiatry note from this morning. Weight / BMI Weight Weight: 118.841 kg Body Mass Index (BMI) 47.9 ABG / Lab / Microbiology Data Result Diagrams: 06/07/22 05:25 06/07/22 05:25 Laboratory: Laboratory Results - last 24 hr 06/07/22 12:41: POC Glucose 152 H 06/07/22 17:06: POC Glucose 172 H 06/07/22 20:11: POC Glucose 203 H 06/08/22 06:07: POC Glucose 179 H 06/08/22 11:20: POC Glucose 255 H Microbiology: Microbiology 06/08/22 10:35 Nasal Secretion SARS-CoV-2 Antigen (Rapid) - Final D/C Instructions Weight Bearing Status: No weight bearing (No weightbearing left foot) Keep extremity elevated above heart level: Left Leg (Keep left foot elevated forat least 50 minutes of every hour.) Call your doctor if your incision/area has: Continuous Slow Oozing, Sudden Increased Bleeding, Foul Smelling Discharge and - (Left foot: Change dressing daily. Idabel betadine to incision site and to pin site 1st toe, apply overlying gauze, kerlix and allen dressings over foot and pin. ) Call your doctor if you observe: Fever of 101 or Higher, Shortness of breath, Chest pain, Calf discomfort and Uncontrolled pain Please Follow Up With: Deepak Kulkarni DPM When: [facility] week at [facility], follow up sooner if needed. Meaningful Use Info Meaningful Use Diagnoses (Choose all that apply): None applicable Discharge Plan Admission Admit Date/Time: 06/04/22 08:47 Attending Provider: Deepak Kulkarni Primary Care Provider: Pk Sloan Consulting Providers: Ashok Robles Discharge Orders/Prescriptions Prescriptions: New polyethylene glycol 3350 17 gram Powder In Packet 17 g PO DAILY Qty: 0 0RF sennosides-docusate sodium [Stool Softener-Stimulant Laxat] 8.6-50 mg Tablet 2 tab PO BID Qty: 0 0RF insulin lispro [Humalog KwikPen Insulin] 100 unit/mL Insulin Pen See Protocol subcut ACHS Qty: 15 2RF Protocol: 5. Sliding Scale Insulin High Dosing Condition: 150-209 mg/dl = 3 units Condition: 210-259 mg/dl = 6 units Condition: 260-324 mg/dl = 9 units Condition: 325-374 mg/dl = 12 units Condition: 375-409 mg/dl = 14 units Condition: 410-449 mg/dl = 16 units Condition: Greater than 449 call physician Protocol Text: - Use for Total Daily Dose of Insulin 81-120 units - Very insulin resistant or septic patients HIGH DOSING ALGORITHM oxycodone 5 mg Tablet 5 mg PO Q6H PRN PRN (Reason: Pain) 4 Days Qty: 14 0RF Continued rivaroxaban 20 MG tablet 20 mg PO DAILY Label Comments: Blood thinner pregabalin [Lyrica] 300 mg capsule 300 mg PO BID multivitamin [Daily Multi-Vitamin] Tablet 1 tab PO DAILY montelukast 10 mg tablet 10 mg PO QPM Qty: 30 5RF Farxiga 5 mg tablet 5 mg PO DAILY insulin glargine [Lantus Solostar U-100 Insulin] 100 unit/mL (3 mL) insulin pen 60 unit subcut BID omega-3 acid ethyl esters 1 gram capsule 2 cap PO BID venlafaxine 150 mg capsule,extended release 24hr 300 mg PO QHS bupropion HCl 150 mg tablet sustained-release 12 hr 150 mg PO BID albuterol sulfate 90 mcg/actuation HFA aerosol inhaler 2 puff INHALATION Q6H PRN (Reason: shortness of breath or wheezing) Qty: 18 6RF albuterol sulfate 2.5 mg /3 mL (0.083 %) solution for nebulization 2.5 mg INHALATION Q6H PRN (Reason: SHORTNESS OF BREATH ) Qty: 180 3RF fluticasone propion-salmeterol [AirDuo RespiClick] 232-14 mcg/actuation aerosol powdr breath activated 1 inh INHALATION BID Qty: 1 6RF guaifenesin 1,200 mg tablet extended release 12hr 1,200 mg PO Q12H Qty: 60 6RF loratadine 10 mg tablet 10 mg PO DAILY Qty: 90 3RF atenolol 100 MG tablet 100 mg PO DAILY Label Comments: Blood pressure/heart rate omeprazole 40 MG capsule,delayed release(DR/EC) 40 mg PO DAILY Label Comments: Acid reflux alprazolam 0.5 MG tablet 0.5 mg PO BID PRN PRN (Reason: Anxiety) Label Comments: Anxiety pravastatin 40 MG tablet 40 mg PO QHS Label Comments: Cholesterol docusate sodium 100 MG capsule 200 mg PO BID Label Comments: Stool softener glimepiride 4 MG tablet 4 mg PO DAILY Label Comments: diabetes quetiapine 100 MG tablet 100 mg PO QHS trazodone 50 MG tablet 50 mg PO QHS acetaminophen 650 mg Tablet Extended Release 1,300 mg PO Q8H metformin 500 mg tablet extended release 24 hr 1,000 mg PO BID Incruse Ellipta 62.5 mcg/actuation blister with device 1 inh INHALATION DAILY furosemide 40 mg tablet 40 mg PO DAILY Qty: 30 11RF Changed ferrous sulfate 325 MG tablet 325 mg PO DAILY Qty: 30 0RF Label Comments: Iron supplement Held diclofenac sodium 75 mg tablet,delayed release (DR/EC) 75 mg PO BID Hold Instructions: Hold it while taking Xarelto. Referrals / Follow Up: Pk Sloan DO [Primary Care Provider] - Disposition Disposition (needs filled in before D/C Order can be placed): Intermediate Facility 06/08/22 1313 <Electronically signed by Deepak Kulkarni DPM> Cosigner Signature (if applicable): CC: LYUDMILA Kulkarni; Dr. Pk Sloan DO~ Signed [facility] Work Phone: [phone] Kulkarni [facility] June 08, 2022 1:12pm Note Date/Time June 08, 2022 1:12 pm [facility] Medical Records Department [address] [place] [address] Instructions for Home/Discharge Instructions 06/08/22 1310 MR#: [id number] Acct: [id number] Name: KAMINI IRBY Rep #:[id number] : 1965 56 From: Deepak Kulkarni DPM PCP: Dr. Pk Sloan DO Status:ADM BIBI Discharge Instructions Activity Weight Bearing Status: No weight bearing (No weightbearing left foot) Keep extremity elevated above heart level: Left Leg (Keep left foot elevated forat least 50 minutes of every hour.) Dressing / Incision Call your doctor if your incision/area has: Continuous Slow Oozing, Sudden Increased Bleeding, Foul Smelling Discharge and - (Left foot: Change dressing daily. Idabel betadine to incision site and to pin site 1st toe, apply overlying gauze, kerlix and allen dressings over foot and pin. ) Call your doctor if you observe: Fever of 101 or Higher, Shortness of breath, Chest pain, Calf discomfort and Uncontrolled pain Change Dressing in: 1 day Follow Up Care Please Follow Up With: Deepak Kulkarni DPM When: [facility] week at [facility], follow up sooner if needed. Test Results: Test results from this visit will be discussed in further detail at your follow- up appointment, if applicable. Discharge Plan Admission Admit Date/Time: 06/04/22 08:47 Attending Provider: Deepak Kulkarni Primary Care Provider: Pk Sloan Consulting Providers: Ashok Robles Discharge Orders/Prescriptions Prescriptions: New polyethylene glycol 3350 17 gram Powder In Packet 17 g PO DAILY Qty: 0 0RF sennosides-docusate sodium [Stool Softener-Stimulant Laxat] 8.6-50 mg Tablet 2 tab PO BID Qty: 0 0RF insulin lispro [Humalog KwikPen Insulin] 100 unit/mL Insulin Pen See Protocol subcut ACHS Qty: 15 2RF Protocol: 5. Sliding Scale Insulin High Dosing Condition: 150-209 mg/dl = 3 units Condition: 210-259 mg/dl = 6 units Condition: 260-324 mg/dl = 9 units Condition: 325-374 mg/dl = 12 units Condition: 375-409 mg/dl = 14 units Condition: 410-449 mg/dl = 16 units Condition: Greater than 449 call physician Protocol Text: - Use for Total Daily Dose of Insulin 81-120 units - Very insulin resistant or septic patients HIGH DOSING ALGORITHM oxycodone 5 mg Tablet 5 mg PO Q6H PRN PRN (Reason: Pain) 4 Days Qty: 14 0RF Continued rivaroxaban 20 MG tablet 20 mg PO DAILY Label Comments: Blood thinner pregabalin [Lyrica] 300 mg capsule 300 mg PO BID multivitamin [Daily Multi-Vitamin] Tablet 1 tab PO DAILY montelukast 10 mg tablet 10 mg PO QPM Qty: 30 5RF Farxiga 5 mg tablet 5 mg PO DAILY insulin glargine [Lantus Solostar U-100 Insulin] 100 unit/mL (3 mL) insulin pen 60 unit subcut BID omega-3 acid ethyl esters 1 gram capsule 2 cap PO BID venlafaxine 150 mg capsule,extended release 24hr 300 mg PO QHS bupropion HCl 150 mg tablet sustained-release 12 hr 150 mg PO BID albuterol sulfate 90 mcg/actuation HFA aerosol inhaler 2 puff INHALATION Q6H PRN (Reason: shortness of breath or wheezing) Qty: 18 6RF albuterol sulfate 2.5 mg /3 mL (0.083 %) solution for nebulization 2.5 mg INHALATION Q6H PRN (Reason: SHORTNESS OF BREATH ) Qty: 180 3RF fluticasone propion-salmeterol [AirDuo RespiClick] 232-14 mcg/actuation aerosol powdr breath activated 1 inh INHALATION BID Qty: 1 6RF guaifenesin 1,200 mg tablet extended release 12hr 1,200 mg PO Q12H Qty: 60 6RF loratadine 10 mg tablet 10 mg PO DAILY Qty: 90 3RF atenolol 100 MG tablet 100 mg PO DAILY Label Comments: Blood pressure/heart rate omeprazole 40 MG capsule,delayed release(DR/EC) 40 mg PO DAILY Label Comments: Acid reflux alprazolam 0.5 MG tablet 0.5 mg PO BID PRN PRN (Reason: Anxiety) Label Comments: Anxiety pravastatin 40 MG tablet 40 mg PO QHS Label Comments: Cholesterol docusate sodium 100 MG capsule 200 mg PO BID Label Comments: Stool softener glimepiride 4 MG tablet 4 mg PO DAILY Label Comments: diabetes quetiapine 100 MG tablet 100 mg PO QHS trazodone 50 MG tablet 50 mg PO QHS acetaminophen 650 mg Tablet Extended Release 1,300 mg PO Q8H metformin 500 mg tablet extended release 24 hr 1,000 mg PO BID Incruse Ellipta 62.5 mcg/actuation blister with device 1 inh INHALATION DAILY furosemide 40 mg tablet 40 mg PO DAILY Qty: 30 11RF Changed ferrous sulfate 325 MG tablet 325 mg PO DAILY Qty: 30 0RF Label Comments: Iron supplement Held diclofenac sodium 75 mg tablet,delayed release (DR/EC) 75 mg PO BID Hold Instructions: Hold it while taking Xarelto. Referrals / Follow Up: Pk Sloan DO [Primary Care Provider] - Disposition Disposition (needs filled in before D/C Order can be placed): Intermediate Facility 06/08/22 1312<Electronically signed by Deepak Kulkarni DPM>Deepak Kulkarni DPM CC: Dr. Ashok Robles MD; Dr. Pk Sloan DO ~ Signed [facility] Work Phone: [phone]) 800-913903-07-[address] Kulkarni [facility] June 08, 2022 7:17am Note Date/Time June 08, 2022 7:05 am [facility] Medical Records Department [address] [place] [address] Progress Note 06/08/22 0705 MR#: [id number] Acct: [id number] Name: KAMINI IRBY Rep #:[id number] : 1965 56 From: Deepak Kulkarni DPM PCP: Dr. Pk Sloan DO Status:ADM BIBI Location: [facility] Subjective Subjective Patient was seen this morning for follow up on left foot. She relates she feels like overall she is doing good. She did bump foot yesterday. No fever, chills, nausea or vomiting. No calf pain at this time. Objective Data Objective Data Vital Signs: Vital Signs Temp Pulse Resp BP Pulse Ox O2 Del Method O2 Flow Rate 98.1 F 61 20 H 116/55 L 92 Room Air 2 06/08/22 06:08 06/08/22 06:50 06/08/22 06:50 06/08/22 06:08 06/08/22 06:50 06/08/22 06:50 06/07/22 23:00 Oxygen Flow Rate (L/min) 2 Oxygen Delivery Method Room Air Weight: 118.841 kg Body Mass Index (BMI) 47.9 Intake & Output: Intake and Output for Last 24 Hours 06/06/22 06/07/22 06/08/22 23:59 23:59 23:59 Intake Total 1000 / 1000 600 / 600 Output Total 600 / 600 900 / 900 Balance 400 / 400 -900 / -900 600 / 600 Lab / Micro Data Result Diagrams: 06/07/22 05:25 06/07/22 05:25 Labs: Laboratory Results - last 24 hr 06/07/22 12:41: POC Glucose 152 H 06/07/22 17:06: POC Glucose 172 H 06/07/22 20:11: POC Glucose 203 H 06/08/22 06:07: POC Glucose 179 H Physical Exam Narrative Dressing right foot is clean, dry and intact. Incision site right foot well coapted, sutures intact, no dehiscense, no evidence of infection, CFT < 2 seconds to all toes with no evidence of ischemia, 1st toe in good position. Const alert, oriented x3 and no apparent distress Assessment & Plan Assessment/Plan (1) Diabetes mellitus with diabetic polyneuropathy: (2) Type 2 diabetes mellitus with foot ulcer: (3) Hallux rigidus, left foot: (4) Non-pressure chronic ulcer of other part of left foot with fat layer exposed: PLAN: Plan Patient seen and evaluated. Patient is s/p left foot Merino arthroplasty on 06/04/22 without complication. Dressings taken down and surgical site inspected. Skin well coapted with intactsutures. Steinmann pin emerging from distal hallux, pin cap is out of position. Surgical site demonstrates no signs of infection. Dressing changed today consisting of Betadine, Adaptic, 4 x 4 gauze, Kerlix, Acewrap rolled onto the foot. No weightbearing left foot. Keep left foot elevated. SCD left lower extremity. Patient is on Xarelto 20mg daily due to her history of blood clots. Pain management: Acetaminophen and Oxyir as needed Antibiotic Propylaxis: Cefazolin 1g IV q 8 hours for 24 hours, then ok to d/c. Patient has finished antibiotic. Hospitalist medicine consulted for diabetes and other medical problems - appreciate assistance. Case management consulted for nursing facility placement. Please do not hesitate to call for any questions or concerns 06/08/22 0717 <Electronically signed by Deepak Kulkarni DPM> Deepak Kulkarni DPM Cosigner Signature (if applicable): CC: ~ Signed [facility] Work Phone: 1(191) 373-507403-06-[address] Robles [facility] June 07, 2022 4:48pm Note Date/Time June 07, 2022 4:48 pm [facility] Medical Records Department [address] [place] [address] Progress Note - Hospitalist 06/07/22 1642 MR#: [id number] Acct: [id number] Name: KAMINI IRBY Rep #:[id number] : 1965 56 From: Ashok Flores PCP: Dr. Pk Sloan, DO Status:ADM BIBI Location: [place] [address]-1 Reason for Visit Reason for Visit: Diagnoses Type 2 diabetes mellitus with diabetic polyneuropathy (06/04/22) Type 2 diabetes mellitus with foot ulcer (06/04/22) Type 2 diabetes mellitus without complications (06/04/22) Non-pressure chronic ulcer of other part of unspecified foot with unspecified severity (06/04/22) Non-pressure chronic ulcer of other part of right foot with fat layer exposed (06/04/22) Non-pressure chronic ulcer of other part of left foot with fat layer exposed (06/04/22) Hallux rigidus, right foot (06/04/22) Hallux rigidus, left foot (06/04/22) Objective Data Objective Data Vital Signs: Vital Signs Temp Pulse Resp BP Pulse Ox O2 Del Method O2 Flow Rate 97.9 F 67 18 135/59 H 93 Room Air 2 06/07/22 05:31 06/07/22 07:00 06/07/22 07:00 06/07/22 05:31 06/07/22 12:11 06/07/22 07:00 06/05/22 23:00 Oxygen Flow Rate (L/min) 2 Oxygen Delivery Method Room Air Weight: 262 lb Body Mass Index (BMI) 47.9 Intake & Output: Intake and Output for Last 24 Hours 06/05/22 06/06/22 06/07/22 23:59 23:59 23:59 Intake Total 650 / 650 1000 / 1000 Output Total 800 / 800 600 / 600 900 / 900 Balance -150 / -150 400 / 400 -900 / -900 Lab / Micro Data Result Diagrams: 06/07/22 05:25 06/07/22 05:25 Labs: Laboratory Results - last 24 hr 06/06/22 17:16: POC Glucose 164 H 06/06/22 21:07: POC Glucose 163 H 06/07/22 05:25: WBC 8.2, RBC 5.01, Hgb 14.6, Hct 44.9, MCV 89.6, MCH 29.1, MCHC 32.5, RDW Std Deviation 49.2 H, RDW Coeff of Luiz 15.0 H, Plt Count 200, MPV 10.4, Immature Gran % (Auto) 0.200, Neut % (Auto) 46.6 L, Lymph % (Auto) 42.3 H,Jewell % (Auto) 7.5, Eos % (Auto) 3.0, Baso % (Auto) 0.4, Absolute Neuts (auto) 3.8, Absolute Lymphs (auto) 3.48, Nucleated RBC % 0 06/07/22 05:25: Sodium 137, Potassium 3.9, Chloride 100, Carbon Dioxide 30.0, Anion Gap 7, BUN 29 H, Creatinine 0.75, Estim Creat Clear Calc 67.03, Est GFR (MDRD) Af Amer 103, Est GFR (MDRD) Non-Af 85, BUN/Creatinine Ratio 38.7 H, Glucose 171 H, Calcium 9.7 06/07/22 06:17: POC Glucose 184 H 06/07/22 12:41: POC Glucose 152 H Assessment & Plan Assessment/Plan (1) Type 2 diabetes mellitus with foot ulcer: PLAN: Plan 1. Nonpressure chronic ulcer of left foot great toe, diabetic foot ulcer statuspost left foot Merino arthroplasty on 06/04/2022: [facility] Wound culture from 11/11/2019 shows MSSA. She has a history of vancomycin sensitive Enterococcus faecalis, MSSE. Patient had Stillerman pain from distal hallux. Surgical site demonstrated no sign of infection. Adaptic dressing. No weightbearing on left foot. Continue cefazolin 1 g IV every 8 hourly for 24 hours and then discontinue. 2. Diabetes mellitus type 2 complicated with diabetic neuropathy: Patient on Lyrica. Accu-Chek insulin coverage Humalog sliding scale. 3.. Hypertension, peripheral artery disease, hyperlipidemia, GERD, anxiety, depression, history of PEs and DVTs, and COPD are chronic medical conditions: Patient on Xarelto and continued. Multiple comorbidities complicates the present care and expect difficult and delay recovery. Continue monitor and make adjustments to her home medications as needed DVT: Xarelto Charges/Coding Visit Charges Inpatient E&M: 36906 Subs Hosp L2 06/07/22 1645 <Electronically signed by Ashok Robles MD> Cosigner Signature (if applicable): CC: ~ Signed [facility] Work Phone: 1(238) 667-840403-06-[address] Kulkarni [facility] June 07, 2022 7:38am Note Date/Time June 07, 2022 7:07 am [facility] Medical Records Department [address] [place] [address] Progress Note 06/07/22 0707 MR#: [id number] Acct: [id number] Name: KAMINI IRBY Rep #:[id number] : 1965 56 From: Deepak Kulkarni DPM PCP: Dr. Pk Sloan, DO Status:[facility]M [facility]IBI [facility] Subject[facility] Subjective Patient was seen this morning for follow up on right foot. She relates she is doing well, awaiting nursing facility placement. No fevers or any other complaints. Objective Data Objective Data Vital Signs: Vital Signs Temp Pulse Resp BP Pulse Ox O2 Del Method O2 Flow Rate 97.9 F 67 18 135/59 H 91 Room Air 2 06/07/22 05:31 06/07/22 07:00 06/07/22 07:00 06/07/22 05:31 06/07/22 07:00 06/07/22 07:00 06/05/22 23:00 Oxygen Flow Rate (L/min) 2 Oxygen Delivery Method Room Air Weight: 118.841 kg Body Mass Index (BMI) 47.9 Intake & Output: Intake and Output for Last 24 Hours 06/05/22 06/06/22 06/07/22 23:59 23:59 23:59 Intake Total 650 / 650 1000 / 1000 Output Total 800 / 800 600 / 600 900 / 900 Balance -150 / -150 400 / 400 -900 / -900 Lab / Micro Data Result Diagrams: 06/07/22 05:25 06/07/22 05:25 Labs: Laboratory Results - last 24 hr 06/06/22 12:59: POC Glucose 140 H 06/06/22 17:16: POC Glucose 164 H 06/06/22 21:07: POC Glucose 163 H 06/07/22 05:25: WBC 8.2, RBC 5.01, Hgb 14.6, Hct 44.9, MCV 89.6, MCH 29.1, MCHC 32.5, RDW Std Deviation 49.2 H, RDW Coeff of Luiz 15.0 H, Plt Count 200, MPV 10.4, Immature Gran % (Auto) 0.200, Neut % (Auto) 46.6 L, Lymph % (Auto) 42.3 H,Jewell % (Auto) 7.5, Eos % (Auto) 3.0, Baso % (Auto) 0.4, Absolute Neuts (auto) 3.8, Absolute Lymphs (auto) 3.48, Nucleated RBC % 0 06/07/22 05:25: Sodium 137, Potassium 3.9, Chloride 100, Carbon Dioxide 30.0, Anion Gap 7, BUN 29 H, Creatinine 0.75, Estim Creat Clear Calc 67.03, Est GFR (MDRD) Af Amer 103, Est GFR (MDRD) Non-Af 85, BUN/Creatinine Ratio 38.7 H, Glucose 171 H, Calcium 9.7 06/07/22 06:17: POC Glucose 184 H Physical Exam Narrative Dressing right foot is clean, dry and intact with no complications. Incision site right foot well coapted, sutures intact, no dehiscense, no evidence of infection, CFT < 2 seconds to all toes with no evidence of ischemia, 1st toe in good position. Const alert, oriented x3 and no apparent distress Assessment & Plan Assessment/Plan (1) Diabetes mellitus with diabetic polyneuropathy: (2) Type 2 diabetes mellitus with foot ulcer: (3) Hallux rigidus, left foot: (4) Non-pressure chronic ulcer of other part of left foot with fat layer exposed: PLAN: Plan Patient seen and evaluated. Patient is s/p left foot Merino arthroplasty on 06/04/22 without complication. Dressings taken down and surgical site inspected. Skin well coapted with intactsutures. Steinmann pin emerging from distal hallux, and is stable. Surgical site demonstrates no signs of infection. Dressing changed today consisting of Betadine, Adaptic, 4 x 4 gauze, Kerlix, Acewrap rolled onto the foot. No weightbearing left foot. Keep left foot elevated. SCD left lower extremity. Patient is on Xarelto 20mg daily due to her history of blood clots. Pain management: Acetaminophen and Oxyir as needed Antibiotic Propylaxis: Cefazolin 1g IV q 8 hours for 24 hours, then ok to d/c. Patient has finished antibiotic. Hospitalist medicine consulted for diabetes and other medical problems - appreciate assistance. Case management consulted for nursing facility placement. Please do not hesitate to call for any questions or concerns 06/07/22 0738 <Electronically signed by Deepak Kulkarni DPM> Deepak Kulkarni DPM Cosigner Signature (if applicable): CC: ~ Signed [facility] Work Phone: 1(499) 477-762403-05-2023 Progress note Author Sulaiman Bauer [facility] June 06, 2022 2:39pm Note Date/Time June 06, 2022 2:39 pm [facility] Medical Records Department [address] [place] [address] Progress Note 06/06/22 1436 MR#: [id number] Acct: [id number] Name: KAMINI IRBY Rep #:[id number] : 1965 56 From: Sulaiman montana DPM PCP: Dr. Pk Sloan, DO Status:ADM BIBI Location: [facility] BI406-1 Subjective Subjective Patient seen this a.m. resting in bed. Left foot is elevated. Patient states that her pain is continuing to improve following surgery. Denies any constitutional symptoms. Denies any further complaints. Objective Data Objective Data Vital Signs: Vital Signs Temp Pulse Resp BP Pulse Ox O2 Del Method O2 Flow Rate 98 F 64 18 151/53 H 98 Room Air 2 06/06/22 09:30 06/06/22 09:30 06/06/22 09:30 06/06/22 09:30 06/06/22 09:30 06/06/22 09:30 06/05/22 23:00 Oxygen Flow Rate (L/min) 2 Oxygen Delivery Method Room Air Weight: 118.841 kg Body Mass Index (BMI) 47.9 Intake & Output: Intake and Output for Last 24 Hours 06/04/22 06/05/22 06/06/22 23:59 23:59 23:59 Intake Total 1203.75 / 1203.75 650 / 650 Output Total 1400 / 1400 800 / 800 Balance -196.25 / -196.25 -150 / -150 Lab / Micro Data Result Diagrams: 06/05/22 06:46 06/05/22 06:46 Labs: Laboratory Results - last 24 hr 06/05/22 17:10: POC Glucose 140 H 06/05/22 21:45: POC Glucose 163 H 06/06/22 06:35: POC Glucose 153 H 06/06/22 12:59: POC Glucose 140 H Physical Exam Narrative Dressing right foot is clean, dry and intact with no complications. Const alert, oriented x3 and no apparent distress Assessment & Plan Assessment/Plan (1) Diabetes mellitus with diabetic polyneuropathy: (2) Type 2 diabetes mellitus with foot ulcer: (3) Hallux rigidus, left foot: (4) Non-pressure chronic ulcer of other part of left foot with fat layer exposed: PLAN: Plan Patient seen and evaluated Patient is s/p left foot Merino arthroplasty on 06/04/22 without complication. POD #2. She is being admitted for observation and nursing facility placement. Dressings taken down and surgical site inspected. Skin well coapted with intactsutures. Steinmann pin emerging from distal hallux. Surgical site demonstratesno signs of infection. Dressing changed today consisting of Betadine, Adaptic, 4 x 4 gauze, Kerlix, Acewrap rolled onto the foot. No weightbearing left foot. Keep left foot elevated. SCD left lower extremity. Patient is on Xarelto 20mg daily due to her history of blood clots. Pain management: Acetaminophen and Oxyir as needed Antibiotic Propylaxis: Cefazolin 1g IV q 8 hours for 24 hours, then ok to d/c. Patient has finished antibiotic. Hospitalist medicine consulted for diabetes and other medical problems - appreciate assistance. Case management consulted for nursing facility placement. Please do not hesitate to call for any questions or concerns Jr[facility] [phone] 06/06/22 1439 <Electronically signed by Sulaiman Bauer DPM> Sulaiman Blanco Cosigner Signature (if applicable): CC: ~ Signed [facility] Work Phone: 1(473) 299-510903-05-[address] López [facility] June 06, 2022 9:41am Note Date/Time June 06, 2022 9:41 am [facility] Medical Records Department [address] [place] [address] Progress Note - Hospitalist 06/06/22 0938 MR#: [id number] Acct: [id number] Name: KAMINI IRBY Rep #:[id number] : 1965 56 From: Kenny ugarte MD PCP: Dr. Pk Sloan, DO Status:ADM BIBI Location: [place] [address] Subjective Subjective No issues overnight Objective Data Objective Data Vital Signs: Vital Signs Temp Pulse Resp BP Pulse Ox O2 Del Method O2 Flow Rate 98.2 F 78 16 154/66 H 93 Room Air 2 06/06/22 03:30 06/06/22 03:30 06/06/22 03:30 06/06/22 03:30 06/06/22 03:30 06/06/22 03:30 06/05/22 23:00 Oxygen Flow Rate (L/min) 2 Oxygen Delivery Method Room Air Weight: 262 lb Body Mass Index (BMI) 47.9 Intake & Output: Intake and Output for Last 24 Hours 06/05/22 06/06/22 06/07/22 03:59 03:59 03:59 Intake Total 1203.75 / 1203.75 650 / 650 Output Total 1400 / 1400 800 / 800 Balance -196.25 / -196.25 -150 / -150 Lab / Micro Data Result Diagrams: 06/05/22 06:46 06/05/22 06:46 Labs: Laboratory Results - last 24 hr 06/05/22 12:18: POC Glucose 137 H 06/05/22 17:10: POC Glucose 140 H 06/05/22 21:45: POC Glucose 163 H 06/06/22 06:35: POC Glucose 153 H Radiography Diagnostic Testing: Radiology Impression Foot X-Ray 06/04/22 07:24 IMPRESSION: Intraoperative digital documentation. It is as described. Electronically Signed: Cabrera Saul, at 11:51 EST , Physical Exam Narrative General: Alert, Oriented x3, Cooperative, No apparent distress, morbidly obese HEENT: Atraumatic, PERRLA, EOMI, Normocephalic Oral: Moist Mucosa Neck: Supple, No JVD Lungs: Diminished, Normal air movement, No rhonchi, No wheeze, No rales Cardiovascular: Regular rate, Regular Rhythm, Normal S1, Normal S2, No murmurs Abdomen: Soft, Non Tender, Non-Distended, No Hepato-splenomegaly Extremities: No edema, Capillary Refill Less than 3 Seconds Skin: Left lower extremity in dressing intact Musculoskeletal: No Tenderness to Palpation of Joints or Extremities Neurological: Cranial nerves II-XII grossly intact, Motor Exam 5/5 strength throughout, Sensory exam intact to light touch and pain Psych/Mental Status: Normal Affect, Appropriate Assessment & Plan Assessment/Plan (1) Type 2 diabetes mellitus with foot ulcer: PLAN: Plan 1. Status post Merino arthroplasty of her first great toe for diabetic foot ulcer/DM2 with neuropathy ? Continue nonweightbearing status ? Continue with Accu-Cheks ACHS as well as insulin ? We will make adjustments as necessary ? We will hold her oral medication ? PT/OT with possible SNF placement ? Pain management per primary ? Continue with Lyrica 2. Hypertension, peripheral artery disease, hyperlipidemia, GERD, anxiety, depression, history of PEs and DVTs, COPD are chronic medical conditions we willmonitor and make adjustments to her home medications as needed DVT: Xarelto Charges/Coding Visit Charges Office Visits / Consults: 57847 OV L3 Est 06/06/22 0941 <Electronically signed by Kenny López MD> Cosigner Signature (if applicable): CC: ~ Signed [facility] Work Phone: 1(820) 443-475903-04-2023 Progress note Author Sulaiman Bauer [facility] June 05, 2022 7:12pm Note Date/Time June 05, 2022 7:05 pm [facility] Medical Records Department [address] [place] [address] Progress Note 06/05/22 190 MR#: [id number] Acct: [id number] Name: KAMINI IRBY Rep #:[id number] : 1965 56 From: Sulaiman montana DPM PCP: Dr. Pk Sloan, DO Status:ADM BIBI Location: [place] [address] Subjective Subjective Patient seen resting in bed with foot elevated. Does admit to a little bit of pain the day after procedure. States otherwise everything is going well. Voiding without difficulty. Denies any constitutional symptoms. Denies any further complaints. Objective Data Objective Data Vital Signs: Vital Signs Temp Pulse Resp BP Pulse Ox O2 Del Method O2 Flow Rate 98 F 64 18 136/62 H 92 Nasal Cannula 2 06/05/22 15:27 06/05/22 15:27 06/05/22 15:27 06/05/22 15:27 06/05/22 15:27 06/05/22 15:27 06/05/22 15:27 Oxygen Flow Rate (L/min) 2 Oxygen Delivery Method Nasal Cannula Weight: 118.841 kg Body Mass Index (BMI) 47.9 Intake & Output: Intake and Output for Last 24 Hours 06/03/22 06/04/22 06/05/22 23:59 23:59 23:59 Intake Total 1203.75 / 1203.75 650 / 650 Output Total 1400 / 1400 800 / 800 Balance -196.25 / -196.25 -150 / -150 Lab / Micro Data Result Diagrams: 06/05/22 06:46 06/05/22 06:46 Labs: Laboratory Results - last 24 hr 06/04/22 21:42: POC Glucose 137 H 06/05/22 04:55: POC Glucose 128 H 06/05/22 06:46: WBC 8.6, RBC 4.54, Hgb 13.4, Hct 41.3, MCV 91.0, MCH 29.5, MCHC 32.4, RDW Std Deviation 51.5 H, RDW Coeff of Luiz 15.7 H, Plt Count 193, MPV 10.1, Immature Gran % (Auto) 0.200, Neut % (Auto) 49.1, Lymph % (Auto) 39.7, Jewell % (Auto) 8.1, Eos % (Auto) 2.7, Baso % (Auto) 0.2, Absolute Neuts (auto) 4.2, Absolute Lymphs (auto) 3.43, Nucleated RBC % 0 06/05/22 06:46: Sodium 139, Potassium 4.4, Chloride 105, Carbon Dioxide 25.0, Anion Gap 9, BUN 18, Creatinine 0.67, Estim Creat Clear Calc 75.04, Est GFR (MDRD) Af Amer 117, Est GFR (MDRD) Non-Af 97, BUN/Creatinine Ratio 26.9 H, Glucose 154 H, Calcium 9.2, Total Bilirubin 0.30, AST 29, ALT 44, Alkaline Phosphatase 66, Total Protein 6.7, Albumin 3.3, Globulin 3.4, Albumin/Globulin Ratio 1.0 06/05/22 12:18: POC Glucose 137 H 06/05/22 17:10: POC Glucose 140 H Radiography Diagnostic Testing: Radiology Impression Foot X-Ray 06/04/22 07:24 IMPRESSION: Intraoperative digital documentation. It is as described. Electronically Signed: Cabrera Saul, at 11:51 EST , Foot X-Ray 06/04/22 09:20 IMPRESSION: Status post resection of the base of the proximal phalanx of the first toe with fixation at the metatarsal phalangeal joint. Electronically Signed: Fredrick Leal MD at 13:26 EST , Physical Exam Narrative Dressing right foot is clean, dry and intact with no complications. Const alert, oriented x3 and no apparent distress Assessment & Plan Assessment/Plan (1) Diabetes mellitus with diabetic polyneuropathy: (2) Type 2 diabetes mellitus with foot ulcer: (3) Hallux rigidus, left foot: (4) Non-pressure chronic ulcer of other part of left foot with fat layer exposed: PLAN: Plan Patient seen and evaluated Patient is s/p left foot Merino arthroplasty on 06/04/22 without complication. POD #1. She is being admitted for observation and nursing facility placement. Dressing left foot is clean, dry and intact. Plan to change surgical dressing tomorrow. No weightbearing left foot. Keep left foot elevated. SCD left lower extremity. Patient is on Xarelto 20mg daily due to her history of blood clots. Pain management: Acetaminophen and Oxyir as needed Antibiotic Propylaxis: Cefazolin 1g IV q 8 hours for 24 hours, then ok to d/c. Patient has finished antibiotic. Hospitalist medicine consulted for diabetes and other medical problems - appreciate assistance. Case management consulted for nursing facility placement. Please do not hesitate to call for any questions or concerns Jr. Anatoly C[facility]P.M. [facility] [phone] 06/05/221911 <Electronically signed by Sulaiman Bauer DPDominique> Sulaiman Blanco Cosigner Signature (if applicable): CC: ~ Signed [facility] Work Phone: 1(490) 534-280503-03-[address] López [facility] June 04, 2022 1:53pm Note Date/Time June 04, 2022 1:53 pm [facility] Medical Records Department [address] [place] [address] Progress Note - Hospitalist 06/04/22 1347 MR#: [id number] Acct: [id number] Name: KAMINI IRBY Rep #:[id number] : 1965 56 From: Kenny ugarte MD PCP: Dr. Pk Sloan, DO Status:ADM BIBI Location: [place] [address] Subjective Subjective Doing well after surgery. No issues Objective Data Objective Data Vital Signs: Vital Signs Temp Pulse Resp BP Pulse Ox O2 Del Method O2 Flow Rate 97.5 F L 60 18 116/67 98 Nasal Cannula 2 06/04/22 11:52 06/04/22 11:52 06/04/22 11:52 06/04/22 11:52 06/04/22 11:52 06/04/22 11:52 06/04/22 11:52 Oxygen Flow Rate (L/min) 2 Oxygen Delivery Method Nasal Cannula Weight: 262 lb Body Mass Index (BMI) 47.9 Intake & Output: Intake and Output for Last 24 Hours 06/03/22 06/04/22 06/05/22 03:59 03:59 03:59 Intake Total 206.75 / 206.75 Output Total 400 / 400 Balance -193.25 / -193.25 Lab / Micro Data Labs: Laboratory Results - last 24 hr 06/04/22 06:17: POC Glucose 161 H 06/04/22 09:03: POC Glucose 152 H 06/04/22 11:57: POC Glucose 143 H Radiography Diagnostic Testing: Radiology Impression Foot X-Ray 06/04/22 09:20 IMPRESSION: Status post resection of the base of the proximal phalanx of the first toe with fixation at the metatarsal phalangeal joint. Electronically Signed: Fredrick Leal MD at 13:26 EST , Physical Exam Narrative General: Alert, Oriented x3, Cooperative, No apparent distress, morbidly obese HEENT: Atraumatic, PERRLA, EOMI, Normocephalic Oral: Moist Mucosa Neck: Supple, No JVD Lungs: Diminished, Normal air movement, No rhonchi, No wheeze, No rales Cardiovascular: Regular rate, Regular Rhythm, Normal S1, Normal S2, No murmurs Abdomen: Soft, Non Tender, Non-Distended, No Hepato-splenomegaly Extremities: No edema, Capillary Refill Less than 3 Seconds Skin: Left lower extremity in dressing intact Musculoskeletal: No Tenderness to Palpation of Joints or Extremities Neurological: Cranial nerves II-XII grossly intact, Motor Exam 5/5 strength throughout, Sensory exam intact to light touch and pain Psych/Mental Status: Normal Affect, Appropriate Assessment & Plan Assessment/Plan (1) Type 2 diabetes mellitus with foot ulcer: PLAN: Plan 1. Status post Merino arthroplasty of her first great toe for diabetic foot ulcer/DM2 with neuropathy ? Continue nonweightbearing status ? Continue with Accu-Cheks ACHS as well as insulin ? We will make a as necessary ? We will hold her oral medication ? PT/OT with possible SNF placement ? Pain management per primary ? Continue with Lyrica 2. Hypertension, peripheral artery disease, hyperlipidemia, GERD, anxiety, depression, history of PEs and DVTs, COPD are chronic medical conditions we willmonitor and make adjustments to her home medications as needed DVT: Xarelto Charges/Coding Visit Charges Office Visits / Consults: 27964 OV L3 Est 06/04/22 1353 <Electronically signed by Kenny López MD> Cosigner Signature (if applicable): CC: ~ Signed [facility] Work Phone: 1(690) 276-447603-03-2023 History and physical note Author Dr. Kulkarni [facility] June 04, 2022 9:51am Note Date/Time June 04, 2022 9:51 am [facility] Medical Records Department [address] [place] [address] History & Physical Exam 06/04/22 0946 MR#: [id number] Acct: [id number] Name: KAMINI IRBY Rep #:[id number] : 1965 56 From: Deepak Kulkarni DPM PCP: Dr. Pk Sloan, DO Status:[facility] Location: [place] [address] HPI - General General Date of Admission: 06/04/22 Chief Complaint: s/p right foot surgery for recurrent diabetic foot ulcer HPI Narrative KAMINI IRBY, is a 56 F who presents after surgery due to chronic recurrent rightfoot ulcer 1st toe. She underwent Merino arthropathy without complication. She has history of many medical problems, including diabetes and blood clots and wasadmitted for observation and nursing facility placement. [facility] Medical History (Updated 06/04/22 @ 09:[address] Deepak Kulkarni, LYUDMILA) Anemia Anxiety Anxiety disorder Arthritis Asthma Back pain Bronchitis Cardiology follow-up encounter Chronic back pain Chronic cough Chronic hypoxemic respiratory failure Chronic sinusitis COPD exacerbation COPD, frequent exacerbations Costal chondritis CPAP (continuous positive airway pressure) dependence Depression Diabetes DVT (deep venous thrombosis) Emphysema, unspecified Essential hypertension Excessive bleeding Fibromyalgia Gastric reflux GERD (gastroesophageal reflux disease) Healthcare-associated pneumonia History of CHF (congestive heart failure) History of DVT of lower extremity History of echocardiogram History of edema History of pulmonary embolus (PE) History of steroid therapy Insulin dependent diabetes mellitus Itching Leg cramps Livedo reticularis Morbid (severe) obesity due to excess calories Nicotine dependence, uncomplicated Normal stress echocardiogram Obstructive sleep apnea On home oxygen therapy Open wound Osteoarthritis of right hip Otitis media Patient's noncompliance with other medical treatment and regimen Personal history of thromboembolic disease Post-menopausal Pulmonary embolism Rheumatoid arthritis Shortness of breath Sleep apnea Smoker TIA (transient ischemic attack) Tobacco dependence syndrome Tubal Type 2 diabetes mellitus Wears glasses Home Medications alprazolam 0.5 mg tablet 0.5 mg PO BID PRN PRN Anxiety 12/15/13 [History Last Taken 06/04/22 05:00] atenolol 100 mg tablet 100 mg PO DAILY blood pressure 12/15/13 [History Last Taken 06/04/22 05:00] omeprazole 40 mg capsule,delayed release 40 mg PO DAILY GERD 12/15/13 [History Last Taken 06/03/22] ferrous sulfate 325 mg (65 mg iron) tablet 325 mg PO BID 03/17/14 [History Last Taken 06/03/22] pravastatin 40 mg tablet 40 mg PO QHS cholesterol 03/17/14 [History Last Taken 06/03/22] glimepiride 4 mg tablet 4 mg PO DAILY diabetes 04/23/15 [History Last Taken 06/03/22] docusate sodium 100 mg capsule 200 mg PO BID Constipation 03/10/17 [History Last Taken 06/03/22] pregabalin 300 mg capsule (Lyrica) 300 mg PO BID nerve pain 03/10/17 [History Last Taken 06/03/22] rivaroxaban 20 mg tablet 20 mg PO DAILY blood thinner 03/10/17 [History Last Taken 06/02/22 17:00] quetiapine 100 mg tablet 100 mg PO QHS sleep 12/12/17 [History Last Taken 06/03/22] trazodone 50 mg tablet 50 mg PO QHS sleep 12/13/17 [History Last Taken 06/03/22] montelukast 10 mg tablet 10 mg PO QPM #30 tabs 12/26/20 [Rx Last Taken 06/03/22] multivitamin (Daily Multi-Vitamin tablet) 1 tab PO DAILY 12/26/20 [History Last Taken 06/03/22] bupropion HCl 150 mg tablet,12 hr sustained-release 150 mg PO BID 11/27/21 [History Last Taken 06/03/22] dapagliflozin 5 mg tablet (Hannahga) 5 mg PO DAILY 11/27/21 [History Last Taken 06/03/22] diclofenac sodium 75 mg tablet,delayed release 75 mg PO BID 11/27/21 [History Last Taken 06/03/22] insulin glargine 100 unit/mL (3 mL) subcutaneous pen (Lantus Solostar U-100 Insulin) 60 unit subcut BID 11/27/21 [History Last Taken 06/03/22 06:00] omega-3 acid ethyl esters 1 gram capsule 2 cap PO BID 11/27/21 [History Last Taken 06/03/22] venlafaxine 150 mg capsule,extended release 24 hr 300 mg PO QHS 11/27/21 [History Last Taken Unknown] furosemide 40 mg tablet 40 mg PO DAILY #30 tabs 04/20/22 [Rx Last Taken 06/03/22] albuterol sulfate 2.5 mg/3 mL (0.083 %) solution for nebulization 2.5 mg (3 mL) inhalation Q6H PRN SHORTNESS OF BREATH #180 vials 04/29/22 [Rx Last Taken 06/04/22] albuterol sulfate 90 mcg/actuation aerosol inhaler 2 puff inhalation Q6H PRN shortness of breath or wheezing #18 grams 04/29/22 [Rx Last Taken 06/04/22] fluticasone 232 mcg-salmeterol 14 mcg/actuation breath activated powdr (AirDuo RespiClick) 1 inh inhalation BID #1 ea 04/29/22 [Rx Last Taken 06/03/22] guaifenesin 1,200 mg tablet, extended release 12 hr 1,200 mg PO Q12H #60 tabs 04/29/22 [Rx Last Taken 06/03/22] loratadine 10 mg tablet 10 mg PO DAILY #90 tabs 04/29/22 [Rx Last Taken 06/03/22] acetaminophen 650 mg tablet,extended release 1,300 mg PO Q8H 05/31/22 [History Last Taken Unknown] metformin 500 mg tablet,extended release 24 hr 1,000 mg PO BID 05/31/22 [History Last Taken 06/02/22] umeclidinium 62.5 mcg/actuation blister powder for inhalation (Incruse Ellipta) 1 inh inhalation DAILY 05/31/22 [History Last Taken Unknown] Allergy/AdvReac Type Severity Reaction Status Date / Time azithromycin Allergy Mild Hives Verified 06/04/22 06:30 enoxaparin sodium Allergy Mild Itching Verified 06/04/22 06:30 [From Lovenox] heparin Allergy Itching Verified 06/04/22 06:30 varenicline [From Chantix] AdvReac Intermediate MENTAL Verified 06/04/22 06:30 ISSUES Family History Other No pertinent family history Surgical History (Updated 05/31/22 @ 14:41 by Abbey Joyner) History of tubal ligation Hx of surgical procedure No pertinent past surgical history Social History Smoking Status: Current every day smoker tobacco type: cigarettes alcohol intake: never substance use type: does not use caffeine: Yes Type: coffee Number of servings: 5 Vital Signs Vital Signs Vital Signs: 06/04/22 06:36 06/04/22 06:36 06/04/22 08:57 Temperature 97.6 F L 97.2 F L Temperature Source Temporal Temporal Pulse Rate 68 62 Respiratory Rate 18 18 Respiratory Pattern Normal Normal Blood Pressure 134/66 H 140/70 H Blood Pressure Mean 88 93 Blood Pressure Source Monitor Monitor Blood Pressure Position Semi-Fowlers Semi-Fowlers Blood Pressure Location Left Arm Right Arm Baseline BP 134/66 Pulse Ox 93 95 Oxygen Delivery Method Room Air Nasal Cannula Oxygen Flow Rate (L/min) 2 06/04/22 08:55 06/04/22 09:00 06/04/22 09:05 Temperature Temperature Source Pulse Rate 59 L 60 60 Respiratory Rate 20 H 20 H 20 H Respiratory Pattern Blood Pressure 139/80 H 127/81 H 128/76 H Blood Pressure Mean 99 96 93 Blood Pressure Source Monitor Monitor Monitor Blood Pressure Position Semi-Fowlers Semi-Fowlers Semi-Fowlers Blood Pressure Location Right Arm Right Arm Right Arm Baseline BP 134/66 134/66 134/66 Pulse Ox 95 94 95 Oxygen Delivery Method Nasal Cannula Nasal Cannula Nasal Cannula Oxygen Flow Rate (L/min) 2 2 2 06/04/22 09:15 Temperature Temperature Source Pulse Rate 56 L Respiratory Rate 18 Respiratory Pattern Blood Pressure 134/77 H Blood Pressure Mean 96 Blood Pressure Source Monitor Blood Pressure Position Semi-Fowlers Blood Pressure Location Right Arm Baseline BP 134/66 Pulse Ox 20 Oxygen Delivery Method Nasal Cannula Oxygen Flow Rate (L/min) 2 Weight Weight: 118.841 kg Body Mass Index (BMI) 47.9 Physical Exam Narrative Dressing right foot is clean, dry and intact with no complications. Const alert, oriented x3 and no apparent distress Results Lab / Micro Data Labs: Laboratory Results - last 24 hr 06/04/22 06:17: POC Glucose 161 H 06/04/22 09:03: POC Glucose 152 H Assessment & Plan Assessment/Plan (1) Type 2 diabetes mellitus: (2) Hallux rigidus, right foot: (3) Non-pressure chronic ulcer of other part of right foot with fat layer exposed: (4) Diabetes mellitus with diabetic polyneuropathy: (5) Type 2 diabetes mellitus with foot ulcer: PLAN: Plan Patient is s/p right foot Merino arthroplasty on 06/04/22 without complication. She is being admitted for observation and nursing facility placement. Dressing right foot is clean, dry and intact. No weightbearing right foot. Keep right foot elevated. SCD left lower extremity. Patient is on Xarelto 20mg daily due to her history of blood clots - ok to resume today. Pain management: Acetaminophen and Oxyir. Antibiotic Propylaxis: Cefazolin 1g IV q 8 hours for 24 hours, then ok to d/c. Hospitalist medicine consulted for diabetes and other medical problems - appreciate assistance. Case management consulted for nursing facility placement. 06/04/22 0951 <Electronically signed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 less than 10% or unspecified amount Injury by scald, initial encounter Partial thickness burn of right foot, initial encounter Partial thickness burn of left foot, initial encounter Scald burn Full thickness burn of right foot, initial encounter Full thickness burn of left foot, initial encounter Anxiety and depression Dysthymic disorder Type 2 diabetes mellitus with diabetic neuropathy, with long-term current use of insulin Smoker Tobacco use disorder Obesity, Class III, BMI 40-49.9 (morbid obesity) Morbid obesity Partial thickness burn of right foot, initial encounter Scald burn Burn due to contact with hot water in bath Partial thickness burn of left foot Shaffer involving less than 10% of body surface Burn (any degree) involving less than 10% of body surface with third degree burn of less than 10% or unspecified amount Obesity, Class III, BMI 40-49.9 (morbid obesity) Morbid obesity Smoker Tobacco use disorder Type 2 diabetes mellitus with diabetic neuropathy Type II or unspecified type diabetes mellitus with neurological manifestations, not stated as uncontrolled HTN (hypertension) Unspecified essential hypertension GERD (gastroesophageal reflux disease) Esophageal reflux Anxiety and depression Dysthymic disorder Insomnia Insomnia, unspecified CHF (congestive heart failure) Congestive heart failure, unspecified HLD (hyperlipidemia) Other and unspecified hyperlipidemia Asymptomatic bacteriuria Other nonspecific finding on examination of urine Chronic anticoagulation Encounter for long-term (current) use of anticoagulants Full thickness burn of right foot documented [facility] Narrative No data available for this section [facility] Hospital Discharge instructions No data available for this section [facility] Hospital Discharge instructions Additional Instructions X-ray right lower leg negative. X-ray left shoulder negative. Take pain medication as prescribed. Follow-up with your doctor.[facility] Work Phone: Hospital Discharge instructions* Attachments The following attachments cannot be sent through Care Everywhere. * (Y) ADULT Advisor: Opioid Pain Management ([place]) * Medication Advisor: Naloxone Hydrochloride; Nasal ([place]) [facility] No data available for this section [facility] Reason for referral (narrative)No reason for referral information availableWTri[facility] Work Phone: Reason for visit Narrative* Auth/Cert (Routine) Specialty Diagnoses / Procedures Referred By Contac t Referred To Contact Diagnoses Full thickness burn of right foot, initial encounter Full thickness burn of left foot, initial encounter Full thickness burn of right foot, initial encounter [T25.321A] Full thickness burn of left foot, initial encounter [T25.322A] Procedures [place] SPLIT GRFT,HEAD,FAC,HAND,FEET <100SQCM [place] SPLIT GRFT,HEAD,FAC,HAND,FEET EA 100SQCM [place] WND PREP PED, FACE/NCK/HND/FT/GEN [place] WND PREP,PED, FACE/NCK/HND/FT/GEN ADD 100 CM Removal of skin substitute to bilateral feet and application of split thickness skin graft Removal of skin substitute to bilateral feet and application of split thickness skin graft Removal of skin substitute to bilateral feet and application of split thickness skin graft Removal of skin substitute to bilateral feet and application of split thickness skin graft [place] [address] Phone: tel: fax: Referral ID Status Reason Start Date Expiration Date Visits Re quested Visits Authorized [id number] 1 1 [facility] Narrative* Rehabilitation (Routine) - Closed Specialty Diagnoses / Procedures Referred By Contact Referred To Contact Rehabilitation / Physical Therapy Diagnoses to be seen in OPBC Procedures BURN EVALUTION PT Angelic Salazar, [place] [address] Phone: tel: fax: Dominic Middleton, [place] [address] Referral ID Status Reason Start Date Expiration Date Visits Re quested Visits Authorized [id number] Closed 02/13/2024 03/03/2024 1 1 [facility] Advance Directives No Advanced Directives Records Found Advance Directive Response Recorded Date/ Time Advance Directives No April 23, 2015 4:27pm Living Will No January 02 9 10:17pm Power of Sail Repair Person No January 02 019 10:17pm Advance Directive Response Recorded Date/ Time Advance Directives No April 23, 2015 3:27pm Living Will No January 02 9 9:17pm Power of Sail Repair Person No January 02 9:17pm Advance Directive Response Recorded Date/ Time Advance Directives No April 28, 2022 7:13am Living Will No April 28 7:13am Power of Sail Repair Person No April 28, 2022 7:13am Advance Directive Response Recorded Date/ Time Advance Directives No April 28, 2022 7:13am Living Will No June 04, 2022 11:52am Power of Sail Repair Person No June 04 11:52am Advance Directive Response Recorded Date/ Time Advance Directives No April 28, 2022 8:13am Living Will No June 04, 2022 12:52pm Power of Sail Repair Person No June 04 12:52pm Advance Directive Response Recorded Date/ Time Advance Directives No April 28, 2022 8:13am Living Will No January 21 4:17pm Power of Sail Repair Person No January 21, 2023 4:17pm Advance Directive Response Recorded Date/ Time Advance Directives No April 28, 2022 8:13am Living Will No January 21 9:12pm Power of Sail Repair Person No January 21, 2023 9:12pm Advance Directive Response Recorded Date/ Time Advance Directives No April 28, 2022 7:13am Living Will No March 11 9:52am Power of Sail Repair Person No March 11, 2023 9:52am Advance Directive Response Recorded Date/ Time Advance Directives No April 28, 2022 7:13am Living Will No June 10, 2023 7:11pm Power of Sail Repair Person No June 09 7:11pm Advance Directive Response Recorded Date/ Time Advance Directives No April 28, 2022 8:13am Living Will No June 10, 2023 8:11pm Power of Sail Repair Person No June 09 8:11pm Advance Directive Response Recorded Date/ Time Living Will No May 07 2:21pm Do you have a Healthcare Power of Sail Repair Person? No May 07, 2024 2:21pm Advance Directives No April 28, 2022 8:13am Advance Directive Response Recorded Date/ Time Living Will No July 21, 2024 10:30pm Do you have a Healthcare Power of Sail Repair Person? No July 21, 2024 10:30pm Advance Directives No April 28, 2022 8:13am Chief Complaint and Reason for Visit Chief Complaint Peripheral vascular disease, unspecified LEG Chief Complaint Peripheral vascular disease, unspecified LEG 6 M FU CELLULITUS L FOOT Reason for Visit Oral herpes simplex infection Chronic hypoxemic respiratory failure COPD (chronic obstructive pulmonary disease) Morbid (severe) obesity due to excess calories Obstructive sleep apnea Smoking greater than 30 pack years Chief Complaint Peripheral vascular disease, unspecified LEG 6 M FU CELLULITUS L FOOT DR OFFICE WAS TO FAX TODAY OVERDUE FOR OV Reason for Visit Oral herpes simplex infection Chronic hypoxemic respiratory failure COPD (chronic obstructive pulmonary disease) Morbid (severe) obesity due to excess calories Obstructive sleep apnea Smoking greater than 30 pack years Chest pain Essential hypertension Hyperlipidemia Chief Complaint CELLULITUS L FOOT DR OFFICE WAS TO FAX TODAY OVERDUE FOR OV NICOTINE DEP Reason for Visit Chest pain Essential hypertension Hyperlipidemia Chief Complaint CELLULITUS L FOOT DR OFFICE WAS TO FAX TODAY OVERDUE FOR OV NICOTINE DEP CHEST PAIN *MOODISPAW* Reason for Visit Chest pain Essential hypertension Hyperlipidemia Chief Complaint CELLULITUS L FOOT DR OFFICE WAS TO FAX TODAY OVERDUE FOR OV NICOTINE DEP CHEST PAIN *MOODISPAW* 3 M FU STRICTURE OF ARTERY, HX OF BLOOD CLOTS Reason for Visit Chest pain Essential hypertension Hyperlipidemia Chronic hypoxemic respiratory failure COPD (chronic obstructive pulmonary disease) Morbid (severe) obesity due to excess calories Obstructive sleep apnea Tobacco dependence syndrome Chief Complaint NICOTINE DEP CHEST PAIN *MOODISPAW* 3 M FU STRICTURE OF ARTERY, HX OF BLOOD CLOTS HYPERTENSION Reason for Visit Chronic hypoxemic re spiratory failure COPD (chronic obstructive pulmonary disease) Morbid (severe) obesity due to excess calories Obstructive sleep apnea Tobacco dependence syndrome Chief Complaint NICOTINE DEP CHEST PAIN *MOODISPAW* 3 M FU STRICTURE OF ARTERY, HX OF BLOOD CLOTS HYPERTENSION ARTHROSCLEROSIS LEFT LEG/POSIBLE INTERVENTION Reason for Visit Chronic hypoxemic re spiratory failure COPD (chronic obstructive pulmonary disease) Morbid (severe) obesity due to excess calories Obstructive sleep apnea Tobacco dependence syndrome PAD (peripheral artery disease) Chief Complaint STRICTURE OF ARTERY, HX OF BLOOD CLOTS HYPERTENSION ARTHROSCLEROSIS LEFT LEG/POSIBLE INTERVENTION PREOP 3 M FU Reason for Visit PAD (peripheral navdi ry disease) Vaginal yeast infection COPD (chronic obstructive pulmonary disease) Morbid (severe) obesity due to excess calories Obstructive sleep apnea Smoking greater than 30 pack years Chief Complaint STRICTURE OF ARTERY, HX OF BLOOD CLOTS HYPERTENSION ARTHROSCLEROSIS LEFT LEG/POSIBLE INTERVENTION PREOP 3 M FU lt merino arthroplasty of 1st metatarsal phalangea lt merino arthroplasty of 1st metatarsal phalangea lt merino arthroplasty of 1st metatarsal phalangea lt merino arthroplasty of 1st metatarsal phalangea Reason for Visit PAD (peripheral navid ry disease) Vaginal yeast infection COPD (chronic obstructive pulmonary disease) Morbid (severe) obesity due to excess calories Obstructive sleep apnea Smoking greater than 30 pack years Diabetes mellitus with diabetic polyneuropathy Hallux rigidus, left foot Hallux rigidus, right foot Type 2 diabetes mellitus with foot ulcer Non-pressure chronic ulcer of other part of left foot with fat layer exposed Non-pressure chronic ulcer of other part of right foot with fat layer exposed Type 2 diabetes mellitus Chief Complaint NICOTINE DEPENDENCE, SMOKING >30 PK YRS Chief Complaint NICOTINE DEPENDENCE, SMOKING >30 PK YRS Cough COVID POSITIVE, COPD EXA Reason for Visit COVID-19 COPD (chronic obstructive pulmonary disease) Essential hypertension Type 2 diabetes mellitus Chief Complaint NICOTINE DEPENDENCE, SMOKING >30 PK YRS Cough COVID POSITIVE, COPD EXA COVID POSITIVE, COPD EXA COVID POSITIVE, COPD EXA COVID POSITIVE, COPD EXA COVID POSITIVE, COPD EXA Reason for Visit COVID-19 COPD (chronic obstructive pulmonary disease) Essential hypertension Type 2 diabetes mellitus COPD exacerbation Chief Complaint NICOTINE DEPENDENCE, SMOKING >30 PK YRS Cough COVID POSITIVE, COPD EXA COVID POSITIVE, COPD EXA COVID POSITIVE, COPD EXA COVID POSITIVE, COPD EXA COVID POSITIVE, COPD EXA 4 M FU SOB Reason for Visit COVID-19 COPD (chronic obstructive pulmonary disease) Essential hypertension Type 2 diabetes mellitus COPD exacerbation Anxiety Chronic hypoxemic respiratory failure COPD (chronic obstructive pulmonary disease) Morbid (severe) obesity due to excess calories Obstructive sleep apnea Smoking greater than 30 pack years Chief Complaint SOB 4 M FU PAD 1 Y FU/PREV PFM Reason for Visit Chronic hypoxemic re spiratory failure COPD (chronic obstructive pulmonary disease) Morbid (severe) obesity due to excess calories Obstructive sleep apnea Tobacco dependence syndrome Chest pain COPD (chronic obstructive pulmonary disease) Hyperlipidemia Chief Complaint SOB 4 M FU PAD 1 Y FU/PREV PFM FALL Reason for Visit Chronic hypoxemic re spiratory failure COPD (chronic obstructive pulmonary disease) Morbid (severe) obesity due to excess calories Obstructive sleep apnea Tobacco dependence syndrome Chest pain COPD (chronic obstructive pulmonary disease) Hyperlipidemia Chief Complaint 4 M FU PAD 1 Y FU/PREV PFM FALL CHEST PAIN Reason for Visit Chronic hypoxemic re spiratory failure COPD (chronic obstructive pulmonary disease) Morbid (severe) obesity due to excess calories Obstructive sleep apnea Tobacco dependence syndrome Chest pain COPD (chronic obstructive pulmonary disease) Hyperlipidemia Chief Complaint 4 M FU PAD 1 Y FU/PREV PFM FALL CHEST PAIN CHRONIC OBSTRUCTIVE PULMONARY DISEASE CHRONIC OBSTRUCTIVE PULMONARY DISEASE Reason for Visit Chronic hypoxemic re spiratory failure COPD (chronic obstructive pulmonary disease) Morbid (severe) obesity due to excess calories Obstructive sleep apnea Tobacco dependence syndrome Chest pain COPD (chronic obstructive pulmonary disease) Hyperlipidemia Chief Complaint Admit Date NICOTINE DEPENDENCE March 12, 2024 1 2:41pm WOUNDS May 07, 2024 1 :06pm 3 M FU May 09, 2024 2 :14pm LUNG May 15, 2024 9:21am Peripheral vascular disease May 8:41am wound May 28, 2024 8:58am wound May 28, 2024 1:09pm LUNG June 19, 2024 9:5 2am Reason for Visit Admit Date Lung nodule May 09, 2024 2 :14pm Anxiety May 09, 2024 2 :14pm Chronic hypoxemic respiratory failure Fe bruary 2024 2:14pm COPD (chronic obstructive pulmonary dise ase) May 09, 2024 2:14pm Morbid (severe) obesity due to excess ca lories May 09, 2024 2:14pm Obstructive sleep apnea May 09 2:14pm PAD (peripheral artery disease) May 24, 2024 8:41am Pedal edema May 24, 2024 8:41am Wound of left foot May 24, 2024 8:41am Wound of right foot May 24, 2024 8:41am Bilateral lower extremity edema May 28, 2024 8:58am Diabetes mellitus with diabetic polyneur opathy May 28, 2024 8:58am PAD (peripheral artery disease) May 28, 2024 8:58am Pedal edema May 28, 2024 8:58am COPD (chronic obstructive pulmonary dise ase) May 28, 2024 8:58am Essential hypertension May 28 8:58am History of skin graft May 28 8:58am Smoking greater than 30 pack years Febru viky 2024 8:58am Chief Complaint Admit Date LUNG June 19, 2024 9:5 2am 1 Y FU July 03, 2024 3:41 pm Pet Scan Results July 05, 2024 8:20 am CHEST PAIN July 21, 2024 10: 24pm PERIPHERAL VAS DISEASE LOW EXTREM BI Sunil e 2024 9:33am Discuss testing October 02, 2024 8:31a m Reason for Visit Admit Date Essential hypertension July 03, 2024 3 :41pm Hyperlipidemia July 03, 2024 3:41 pm Anxiety July 05, 2024 8:20 am Chronic hypoxemic respiratory failure Ap ril 2024 8:20am COPD (chronic obstructive pulmonary dise ase) July 05, 2024 8:20am Lung nodule July 05, 2024 8:20 am Morbid (severe) obesity due to excess ca lories July 05, 2024 8:20am Obstructive sleep apnea July 05, 2024 8:20am Reason for Visit Admit Date Essential hypertension July 03, 2024 3 :41pm Hyperlipidemia July 03, 2024 3:41 pm Anxiety July 05, 2024 8:20 am Chronic hypoxemic respiratory failure Ap ril 2024 8:20am COPD (chronic obstructive pulmonary dise ase) July 05, 2024 8:20am Lung nodule July 05, 2024 8:20 am Morbid (severe) obesity due to excess ca lories July 05, 2024 8:20am Obstructive sleep apnea July 05, 2024 8:20am Pedal edema October 02, 2024 8:31a m Wound of right foot October 02, 2024 8:31a m Chief Complaint Admit Date CHEST PAIN July 21, 2024 10: 24pm PERIPHERAL VAS DISEASE LOW EXTREM BI Sunil e 2024 9:33am Discuss testing October 02, 2024 8:31a m LOCALIZED EDEMA November 02, 2024 7:5 4am Reason for Visit Admit Date Pedal edema October 02, 2024 8:31a m Wound of right foot October 02, 2024 8:31a m Summary Purpose Family History No Family History Records Found Additional Source Comments Care Team (unrecognized sect ion and content) Team Status: Active Member Role Status Dates Dr. Pk Sloan DO Family Provider Active Dr. Pk Sloan DO Primary Care Provider Active Team Status: Inactive Member Role Status Dates Dr. Pk Sloan , Primary Care Provider Active Dr. Luke Mensah MD Attending Provider, Referring Pr ovider Active Team Status: Active Member Role Status Dates Dr. Pk Sloan DO Primary Care Provider Active Dr. Trevor Munson MD Attending Provider Active Team Status: Inactive Member Role Status Dates Dr. Pk Sloan DO Primary Care Provider Active Zeny Noel ESCAPEMENT MATCHER, ESCAPEMENT MATCHER-C Attending Provider, Referrin g Provider Active Team Status: Inactive Member Role Status Dates Dr. Pk Sloan DO Primary Care Provider Active Ranjit Valle ESCAPEMENT MATCHER, ESCAPEMENT MATCHER-C Attending Provider, Referring Pro vider Active Team Status: Inactive Member Role Status Dates Dr. Pk Sloan DO Primary Care Provider Active Dr. Clifton Martell MD Attending Provider Active Team Status: Inactive Member Role Status Dates Dr. Pk Sloan DO Primary Care Provider Active Dr. Clifton Martell MD Attending Provider, Referring Provider Active Team Status: Inactive Member Role Status Dates Dr. Pk Sloan DO Primary Care Provider, Referri ng Provider Active Zeny Noel ESCAPEMENT MATCHER, ESCAPEMENT MATCHER-C Attending Provider Active Team Status: Active Member Role Status Dates Dr. Pk Sloan DO Primary Care Provider Active Dr. Shelia Chaudhary MD Attending Provider Active Dr. Clifton Martell MD Referring Provider Active Team Status: Inactive Member Role Status Dates Dr. Pk Sloan DO Primary Care Provider Active Dr. Juana Cortez MD Attending Provider, Referring P michele Active Team Status: Active Member Role Status Dates Dr. Pk Sloan DO Primary Care Provider Active Dr. Deepak Kulkarni DPM Admit Provider , Referring Provider, Other Provider Active Dr. Kenny López MD Attending Provider, Other Provider Active Team Status: Active Member Role Status Dates Dr. Pk Sloan DO Primary Care Provider Active Dr. Deepak Kulkarni DPM Admit Provider , Referring Provider, Other Provider Active Dr. Ashok Robles MD Attending Provider, Other Provi phyllis Active Team Status: Inactive Member Role Status Dates Dr. Pk Sloan DO Primary Care Provider Active Dr. Deepak Kulkarni DPM Admit Provider , Attending Provider, Referring Provider Active Dr. Ashok Robles MD Other Provider Active Team Status: Inactive Member Role Status Dates Dr. Pk Sloan DO Primary Care Provider Active Dr. Deepak Kulkarni DPM Attending Provider, Referrin g Provider Active Team Status: Inactive Member Role Status Dates Dr. Pk Nathalia , DO Primary Care Provider, Referri ng Provider Active Donavan M[place], [place] Attending Provider Active Team Status: Active Member Role Status Dates Dr. Pk Sloan , DO Primary Care Provider Active Dr. Thomas Mayfield , DO Emergency Provider Active Dr. Ashok Robles MD Admit Provider, Attending Provi phyllis Active Team Status: Active Member Role Status Dates Dr. Pk Sloan , DO Primary Care Provider Active Dr. Thomas Mayfield , DO Emergency Provider Active Dr. Ashok Robles MD Admit Provider, A ttending Provider, Other Provider Active Team Status: Active Member Role Status Dates Dr. Pk Sloan , DO Primary Care Provider Active Dr. Thomas Mayfield , DO Emergency Provider Active Dr. Ashok Robles MD Admit Provider, Other Provider Active Dr. Stella Brooke MD Attending Provider, Other Prov ider Active Team Status: Active Member Role Status Dates Dr. Pk Sloan , DO Primary Care Provider Active Dr. Thomas Mayfield DO Emergency Provider Active Dr. Ashok Robles MD Admit Provider, Other Provider Active Dr. Kenny López MD Attending Provider, Other Provider Active Dr. Stella Brooke MD Other Provider Active Team Status: Inactive Member Role Status Dates Dr. Pk Sloan DO Primary Care Provider Active Dr. Thomas Mayfield , Emergency Provider Active Dr. Ashok Robles MD Admit Provider, Other Provider Active Dr. Kenny López MD Attending Provider Active Dr. Stella Brooke MD Other Provider Active Environmental Marketing Representative Relationship Specialty Start Date End Date Pk Sloan DO [address] [place] [address] PCP - General Family Medicine 10/05/22 Environmental Marketing Representative Relationship Specialty Start Date End Date Jaquan Ha, COMPUTER APPLICATION DEVELOPER-REGISTER REPAIRER [address] [place] [address] PCP - General 02/21/23 Environmental Marketing Representative Relationship Specialty Start Date End Date Jaquan Ha COMPUTER APPLICATION DEVELOPER-REGISTER REPAIRER [address] [place] [address] PCP - General 02/21/23 Team Status: Inactive Member Role Status Dates Dr. Pk Sloan DO Primary Care Provider Active Dr. Hubert Chery , DO Emergency Provider Active Team Status: Inactive Member Role Status Dates Dr. Pk Sloan DO Primary Care Provider, Referri ng Provider Active Dr. Trevor Munson MD Active Dr. Sulaiman Roca MD Attending Provider Active Team Status: Inactive Member Role Status Dates Dr. Pk Sloan DO Referring Provider Active Dr. Luke Mensah MD Attending Provider Active Dr. Juana Cortez MD Primary Care Provider Active Team Status: Inactive Member Role Status Dates Dr. Pk Sloan DO Primary Care Provider Active Dr. Hubert Chery , DO Attending Provider, Emergency P rovider Active Team Status: Inactive Member Role Status Dates Dr. Clifton Martell MD Attending Provider, Referring Provider Active Dr. Pk Sloan DO Primary Care Provider Active Team Status: Inactive Member Role Status Dates Dr. Pk Sloan DO Primary Care Provider Active Dr. Moncho Li DO Emergency Provider Active Team Status: Active Member Role Status Dates Dr. Pk Sloan DO Primary Care Provider Active Dr. Gus Dickens MD Attending Provider Active Team Status: Inactive Member Role Status Dates Dr. Pk Sloan DO Primary Care Provider Active Dr. Moncho Li DO Attending Provider, Emergency Provide r Active Team Status: Inactive Member Role Status Dates Dr. Pk Sloan DO Primary Care Provider Active Dr. Sulaiman Roca MD Attending Provider, Referring Provider Active Team Status: Active Member Role Status Dates Dr. Pk Sloan DO Primary Care Provider Active Dr. Luke Mensah MD Other Provider Active Dr. Kaden Coffey , DO Attending Provider Active Team Status: Inactive Member Role Status Dates Dr. Pk Sloan DO Primary Care Provider Active Dr. Luke Mensah MD Attending Provider Active Environmental Marketing Representative Relationship Specialty Start Date End Date Jaquan Ha, COMPUTER APPLICATION DEVELOPER-REGISTER REPAIRER [address] [place] [address] PCP - General 02/21/23 Environmental Marketing Representative Relationship Specialty Start Date End Date Jaquan Ha, COMPUTER APPLICATION DEVELOPER-REGISTER REPAIRER [address] [place] [address] PCP - General 02/21/23 Environmental Marketing Representative Relationship Specialty Start Date End Date Jaquan Ha, COMPUTER APPLICATION DEVELOPER-REGISTER REPAIRER [address] [place] [address] PCP - General 02/21/23 Environmental Marketing Representative Relationship Specialty Start Date End Date Jaquan Ha, COMPUTER APPLICATION DEVELOPER-REGISTER REPAIRER [address] [place] [address] PCP - General 02/21/23 Environmental Marketing Representative Relationship Specialty Start Date End Date Jaquan Ha, COMPUTER APPLICATION DEVELOPER-REGISTER REPAIRER [address] [place] [address] PCP - General 02/21/23 Environmental Marketing Representative Relationship Specialty Start Date End Date Jaquan Ha, COMPUTER APPLICATION DEVELOPER-REGISTER REPAIRER [address] [place] [address] PCP - General 02/21/23 Environmental Marketing Representative Relationship Specialty Start Date End Date Jaquan Ha, COMPUTER APPLICATION DEVELOPER-REGISTER REPAIRER [address] [place] [address] PCP - General 02/21/23 Environmental Marketing Representative Relationship Specialty Start Date End Date Jaquan Ha COMPUTER APPLICATION DEVELOPER-REGISTER REPAIRER [address] [place] [address] PCP - General 02/21/23 Environmental Marketing Representative Relationship Specialty Start Date End Date Jaquan Ha, COMPUTER APPLICATION DEVELOPER-REGISTER REPAIRER [address] [place] [address] PCP - General 02/21/23 Team Status: Active Member Role Status Dates Dr. Pk Sloan DO Primary Care Provider Active Team Status: Inactive Member Role Status Dates Dr. Pk Sloan DO Primary Care Provider Active Start: March 12, 2024 End: March 12, 2024 Zeny Noel ESCAPEMENT MATCHER, ESCAPEMENT MATCHER-C Attending Provider Active Start: March 12, 2024 End: March 12, 2024 Zeny Noel ESCAPEMENT MATCHER, ESCAPEMENT MATCHER-C Referring Provider Active Start: March 12, 2024 End: March 12, 2024 Team Status: Inactive Member Role Status Dates Dr. Pk Sloan DO Primary Care Provider Active Start: May 07, 2024 End: May 07, 2024 Dr. Bill Tello MD Attending Provider Active S tart: May 07, 2024 End: May 07, 2024 Dr. Bill Tello MD Emergency Provider Active S tart: May 07, 2024 End: May 07, 2024 Team Status: Inactive Member Role Status Dates Dr. Pk Sloan DO Primary Care Provider Active Start: May 09, 2024 End: May 09, 2024 Dr. Pk Sloan DO Referring Provider Active Start: May 09, 2024 End: May 09, 2024 Zeny Noel ESCAPEMENT MATCHER, ESCAPEMENT MATCHER-C Attending Provider Active Start: May 09, 2024 End: May 09, 2024 Team Status: Inactive Member Role Status Dates Dr. Pk Sloan DO Primary Care Provider Active Start: May 09, 2024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 Administer PRN after initial tub dose. May repeat every 2-3 minutes to a MAXIMUM OF 2 DOSES DAILY, Maximum mg/dose=2mg Repeat Daily. Group 3: oxyCODONE (immediate release) (ROXICODONE) tablet 5 mgJump to med 5 mg, Oral, EVERY 6 HOURS PRN, Starting on Tue01/30/24 at 2119, Until Tue02/06/24 at 1547, Moderate Pain = Pain Score 4-6, please use PO medication before using IV medication for breakthrough if able Or oxyCODONE (immediate release) (ROXICODONE) CUT tablet 7.5 mg (CANCELED)Jump to med 7.5 mg, Oral, EVERY 6 HOURS PRN, Starting on Tue01/30/24 at 2119, Until 02/05/24 at 1501, Severe Pain = Pain Score 7-10, Use for pain not managed by oral medication options Scheduled Medication Order 12/29/2023 12/30/2023 12/31/2023 acetaminophen (TYLENOL) 325 MG tablet 650 mg 650 mg, Oral, EVERY 6 HOURS, 360 doses, First dose on 12/18/23 at 1430, Last dose on Tue03/17/24 at 0600, Can skip night time dose if sleeping 0447 (Given - Provider: Eddie Mendosa RN)0933 (Given - Provider: Ian Rose RN)1652 (Given - Provider: Marian Farias RN)2150 (Given - Provider: Linda Dumont RN) 0452 (Given - Provider: Linda Dumont RN)1203 (Given - Provider: Ketty Bowers RN)1731 (Given - Provider: Ketty Bowers RN) 0030 (Given - Provider: Licha Hernández RN)0608 (Given - Provider: Licha Hernández RN)1256 (Given - Provider: Eboni Recinos RN) ALPRAZolam (XANAX) tablet 1 mg 1 mg, Oral, 3 TIMES DAILY, First dose (after last modification) on Tue12/20/23 at 1700, Until Discontinued 09 (Given - Provider: Ian Rose RN)1759 (Given - Provider: aMrian Farias RN)2130 (Given - Provider: Linda Dumont RN) 0855 (Given - Provider: Ketty Bowers RN)1731 (Given - Provider: Ketty Bowers RN)2150 (Given - Provider: Licha Hernández RN) 0950 (Given - Provider: Eboni Recinos RN) atenolol (TENORMIN) tablet 100 mg 100 mg, Oral, DAILY, 90 doses, First dose on Tue12/18/23 at 0900, Last dose on Tue03/16/24 at 0900, Hold if systolic BP is <110 0913 (Given - Provider: Ian Rose RN) 0855 (Given - Provider: Ketty Bowers RN) 0950 (Given - Provider: Eboni Recinos RN) atorvastatin (LIPITOR) tablet 40 mg 40 mg, Oral, BEDTIME, First dose (after last modification) on Tue12/20/23 at 2100, Until Discontinued 2129 (Given - Provider: Linda Dumont RN) 2149 (Given - Provider: Licha Hernández RN) buPROPion (WELLBUTRIN SR) SR tablet 150 mg 150 mg, Oral, 2 TIMES DAILY, 180 doses, First dose on Tue12/18/23 at 0030, Last dose on Tue03/16/24 at 0900, Do not Crush 0932 (Given - Provider: Ian Rose RN)2129 (Given - Provider: Linda Dumont RN) 08 (Given - Provider: Ketty Bowers RN)2149 (Given - Provider: Licha Hernández RN) 0950 (Given - Provider: Eboni Recinos RN) diphenhydrAMINE (BENADRYL) capsule 25 mg (CANCELED) 25 mg, Oral, 2 TIMES DAILY, First dose (after last modification) on Tue12/27/23 at 0900, Until Discontinued, Give prior to Lovenox injections 09 (Given - Provider: Ian Rose RN) docusate sodium (COLACE) capsule 100 mg 100 mg 2 TIMES DAILY, Oral, First dose (after last modification) on Tue12/27/23 at 0900, For 163 doses 0913 (Given - Provider: Ian Rose RN)2130 (Given - Provider: Linda Dumont RN) 0855 (Given - Provider: Ketty Bowers RN)2149 (Given - Provider: Licha Hernández RN) 0950 (Given - Provider: Eboni Recinos RN) Enoxaparin Sodium (LOVENOX) SQ 40 mg (CANCELED) 40 mg, Subcutaneous, EVERY 12 HOURS EXACT, 14 doses, First dose (after last reorder) on Tue12/27/23 at 0000, Last dose on Tue01/02/24 at 2100, Preferred ADMIN Site is ABDOMEN., What is the Indication: Prophylaxis, Is this a home medication? No 0931 (Given - Provider: Ian Rose, DAMIEN) Fluticasone-Salmeterol (sensor) 232-14 MCG/ACT AEPB 2 Puff 2 Puff Twice Daily, Inhalation, First dose on Tue12/18/23 at 1600, For 90 days, MED Name Fluticasone propionate and salmeterol, Brand Name: Fluticasone propionate and salmeterol, Generic name: Fluticasone propionate and salmeterol, Specific therapeutic reason for requesting non-formulary or high cost medication: To prevent interruption of course of therapy initiated prior to admission (Home medication), Attending Provider: JOSE SIN 0932 (Given - Provider: Ian Rose, DAMIEN)2100 (Given - Provider: Linda Dumont RN) 0855 (Given - Provider: Ketty Bowers RN)2155 (Given - Provider: Thad Rowell I, RT) 0951 (Given - Provider: Eboni Recinos RN) glimepiride (AMARYL) tablet 4 mg 4 mg, Oral, DAILY WITH BREAKFAST, 90 doses, First dose on Tue12/28/23 at 0830, Last dose on Tue03/26/24 at 0830 0932 (Given - Provider: Ian Rose RN - Comment: was in dressing change) 0855 (Given - Provider: Ketty Bowers RN) 0951 (Given - Provider: Eboni Recinos RN) insulin glargine (LANTUS) injection 60 Units 60 Units, Subcutaneous, at Bedtime, 82 doses, First dose (after last modification) on Tue12/26/23 at 2100, Last dose on Tue03/16/24 at 2100 2208 (Given - Provider: Linda Dumont RN) 2150 (Given - Provider: Licha Hernández RN) insulin lispro (HumaLOG) injection (Meals/Bedtime-Vial Calculator) 0-20 Units 0-20 Units, Subcutaneous, Before Meals & At Bedtime, 319 doses, First dose (after last modification) on Tue12/28/23 at 1230, Last dose on Tue03/16/24 at 2100, Calculated doses can be validated in this manner: (Current blood glucose - blood glucose target)/correction factor = Glucose Correction Dose. Carb intake/carb ratio = carbohydrate-based dose. Glucose correction dose + carbohydrate-based dose = Total Insulin dose to be administered. 0945 (Given - Provider: Ian Rose RN)1250 (Given - Provider: Ian Rose RN)1859 (Not Given - Provider: Marian Farias RN - Reason: Order parameters not met)2207 (Not Given - Provider: Linda Dumont RN - Reason: Order parameters not met) 0927 (Given - Provider: Ketty Bowers RN)1256 (Given - Provider: Ketty Bowers RN)1733 (Given - Provider: Ketty Bowers RN)2150 (Given - Provider: Licha Hernández RN) 1123 (Not Given - Provider: Eboni Recinos RN - Reason: Order parameters not met)1202 (Given - Provider: Eboni Recinos RN) loratadine (CLARITIN) tablet 10 mg 10 mg, Oral, DAILY, 90 doses, First dose on Tue12/18/23 at 0900, Last dose on Tue03/16/24 at 0900, Take on empty stomach or before meals. 0932 (Given - Provider: Ian Rose RN) 0855 (Given - Provider: Ketty Bowers RN) 0950 (Given - Provider: Eboni Recinos RN) metFORMIN (GLUCOPHAGE) tablet 1,000 mg 1,000 mg, Oral, 2 TIMES DAILY, 180 doses, First dose on Tue12/27/23 at 2100, Last dose on Tue03/26/24 at 0900, Hold 48 hrs after IV contrast 0913 (Given - Provider: Ian Rose RN)2130 (Given - Provider: Linda Dumont RN) 0855 (Given - Provider: Ketty Bowers RN)2150 (Given - Provider: Licha Hernández RN) 0950 (Given - Provider: Eboni Recinos RN) montelukast (SINGULAIR) tablet 10 mg 10 mg, Oral, AT BEDTIME, 90 doses, First dose on 12/18/23 at 2200, Last dose on Tue03/16/24 at 2200 2147 (Given - Provider: Linda Dumont RN) 2149 (Given - Provider: Licha Hernández RN) multivitamin (CENTRUM) oral liquid 15 mL(Linked Group 1) 15 mL, Oral, DAILY, 90 doses, First dose on Tue12/18/23 at 0900, Last dose on Tue03/16/24 at 0900, Route per patient preference 0913 (See Alternative - Provider: Ian Rose RN) 0855 (See Alternative - Provider: Ketty Bowers RN) 0950 (See Alternative - Provider: Eboni Recinos RN) Multivitamin mineral supplement (CENTRUM) tablet 1 Tablet(Linked Group 1) 1 Tablet, Oral, DAILY, 90 doses, First dose on 12/18/23 at 0900, Last dose on Tue03/16/24 at 0900, Route per patient preference 0913 (Given - Provider: Ian Rose RN) 0855 (Given - Provider: Ketty Bowers RN) 0950 (Given - Provider: Eboni Recinos RN) NaCl 0.9% PosiFlush 2 mL 2 mL EVERY 8 HOURS, Intravenous, at 0-999 mL/hr, First dose on Tue12/26/23 at 2000, For 90 days 0103 (Push - Provider: Eddie Mendosa RN)0933 (Not Given - Provider: Ian Rose RN - Reason: Running IV fluids)1807 (Push - Provider: Marian Farias RN) 0445 (Push - Provider: Linda Dumont RN)0855 (Push - Provider: Ketty Bowers RN - Comment: x2)1742 (Push - Provider: Ketty Bowers RN - Comment: x2) 0030 (Push - Provider: Licha Hernández RN)0951 (New Bag - Provider: Eboni Recinos RN)1550 (Due: Stopped) omeprazole (PriLOSEC) capsule 40 mg 40 mg, Oral, DAILY, 90 doses, First dose on Tue12/18/23 at 0900, Last dose on Tue03/16/24 at 0900, Do not crush 0913 (Given - Provider: Ian Rose RN) 0855 (Given - Provider: Ketty Bowers RN) 0950 (Given - Provider: Eboni Recinos RN) polyethylene glycol (GLYCOLAX) packet 17 g 17 g, Oral, DAILY, 38 doses, First dose (after last modification) on Tue12/27/23 at 0900, Last dose on Tue02/02/24 at 0900, Mix in 8 ounces of liquid 0913 (Given - Provider: Ian Rose RN) 0855 (Given - Provider: Ketty Bowers RN) 0950 (Given - Provider: Eboni Recinos RN) pregabalin (LYRICA) capsule 300 mg 300 mg, Oral, 2 TIMES DAILY, 180 doses, First dose on 12/18/23 at 0030, Last dose on Tue03/16/24 at 0900 0913 (Given - Provider: Ian Rose RN)2130 (Given - Provider: Linda Dumont RN) 0855 (Given - Provider: Ketty Bowers RN)2150 (Given - Provider: Licha Hernández RN) 0951 (Given - Provider: Eboni Recinos RN) QUEtiapine (SEROquel) tablet 100 mg 100 mg, Oral, AT BEDTIME, 90 doses, First dose on Tue12/18/23 at 2200, Last dose on Tue03/16/24 at 2200 2147 (Given - Provider: Linda Dumont RN) 215 (Given - Provider: Licha Hernández RN) rivaroxaban (Xarelto) tablet 20 mg 20 mg, Oral, DAILY, First dose (after last modification) on Tue12/30/23 at 0930, Until Discontinued 09 (Given - Provider: Ketty Bowers RN) 0950 (Given - Provider: Eboni Recinos RN) senna-docusate (SENNAS) tablet 8.6 mg (CANCELED) 8.6 mg, Oral, DAILY, 82 doses, First dose (after last modification) on Tue12/27/23 at 0900, Last dose on Tue03/17/24 at 0900 0913 (Given - Provider: Ian Rose, DAMIEN) 0855 (Given - Provider: Ketty Bowers RN) senna-docusate (SENNAS) tablet 8.6 mg 8.6 mg, Oral, EVERY OTHER DAY, 78 doses, First dose (after last modification) on 01/01/24 at 0900, Last dose on 06/03/24 at 0900 traZODone (DESYREL) tablet 50 mg 50 mg, Oral, BEDTIME, 90 doses, First dose on 12/18/23 at 0030, Last dose on Zoey 03/15/24 at 2100 2130 (Given - Provider: Linda Dumont RN) 2150 (Given - Provider: Licha Hernández RN) Umeclidinium Cascade AEPB 1 Puff 1 Puff EVERY MORNING, Inhalation, First dose on Tue12/19/23 at 0900, For 90 days, MED Name Incruse, Brand Name: Incruse, Generic name: umeclidinium, Specific therapeutic reason for requesting non-formulary or high cost medication: To prevent interruption of course of therapy initiated prior to admission (Home medication), Attending Provider: JOSE SIN 0932 (Given - Provider: Ian Rose RN) 0855 (Given - Provider: Ketty Bowers RN) 0951 (Given - Provider: Eboni Recinos RN) venlafaxine (EFFEXOR-XR) XR capsule 150 mg 150 mg, Oral, DAILY, 90 doses, First dose on Tue12/18/23 at 0900, Last dose on Tue03/16/24 at 0900, Do not crush 0932 (Given - Provider: Ian Rose, DAMIEN) 0855 (Given - Provider: Ketty Bowers, DAMIEN) 0950 (Given - Provider: Eboni Recinos, DAMIEN) Continuous Medication Order 12/29/2023 12/30/2023 12/31/2023 Lactated Ringers IV (CANCELED) CONTINUOUS, Intravenous, at 75 mL/hr, Starting on Tue12/29/23 at 0830, For 90 days 0758 (New Bag - Provider: Yaz Juarez RN)0800 (Dose/Rate Verification - Provider: Ian Rose RN)0900 (Dose/Rate Verification - Provider: Ian Rose RN)1000 (Dose/Rate Verification - Provider: Ian Rose RN)1009 (Paused - Provider: Ian Rose RN)1015 (Restarted - Provider: Ian Rose RN)1055 (Paused - Provider: Ian Rose, DAMIEN)1102 (Paused - Provider: Ian Rose RN)1102 (Restarted - Provider: Ian Rose RN)1200 (Dose/Rate Verification - Provider: Ian Rose, DAMIEN)1411 (Dose/Rate Verification - Provider: Marian Farias RN)1416 (Paused - Provider: Marian Farias RN)1422 (Restarted - Provider: Marian Farias, RN)1500 (Dose/Rate Verification - Provider: Marian Farias, RN)1600 (Dose/Rate Verification - Provider: Marian Farias, DAMIEN)1650 (Paused - Provider: Marian Farias RN)1650 (Paused - Provider: Marian Farias, DAMIEN)1651 (Paused - Provider: Marian Farias, RN)1651 (Paused - Provider: Marian Farias RN)1651 (Paused - Provider: Marian Farias RN)1651 (Paused - Provider: Marian Farias RN)1652 (Restarted - Provider: Marian Farias RN)1700 (Dose/Rate Verification - Provider: Marian Farias RN)1800 (Dose/Rate Verification - Provider: Marian Farias RN)1853 (Paused - Provider: Marian Farias RN)1855 (Paused - Provider: Marian Farias RN)190 (Restarted - Provider: Linda Dumont RN)195 (Stopped - Provider: Linda Dumont RN) PRN Medication Order 12/29/2023 12/30/2023 12/31/2023 albuterol (PROAIR HFA;VENTOLIN HFA;PROVENTIL HFA) 108 (90 Base) MCG/ACT inhaler 2 Puff 2 Puff, Inhalation, EVERY 4 HOURS PRN, Starting on 12/17/23 at 2257, Until 12/31/23 at 1550, Wheezing, Shortness of Breath 1234 (Given - Provider: Nubia Muir RN) bisacodyl (DULCOLAX) suppository 10 mg 10 mg, Rectal, EVERY 72 HOURS PRN, Starting on 12/17/23 at 2255, Until 12/31/23 at 1550, Constipation, Give if no bowel movement after 3 days guaiFENesin (MUCINEX) SR tablet 600 mg 600 mg, Oral, EVERY 12 HOURS PRN, Starting on Tue12/28/23 at 1652, Until 12/31/23 at 1550, Congestion, Cough, Do not crush NaCl 0.9 % 10 mL 10 mL PRN, Intravenous, at 0-999 mL/hr, Line Care, For mixture of medications, Starting on Tue12/26/23 at 1920, For 90 days, For mixture of medications NaCl 0.9 % IV Flush bag 30 mL 30 mL PRN, Intravenous, at 0-999 mL/hr, Flush IV line after medication IVPB bag if given., Starting on Tue12/26/23 at 1920, For 90 days, Flush IV line after medication IVPB bag if given. NaCl 0.9% PosiFlush 2 mL 2 mL PRN, Intravenous, at 0-999 mL/hr, Line Care, Starting on Tue12/26/23 at 1920, For 90 days 0446 (Push - Provider: Linda Dumont RN) NaCl 0.9% PosiFlush 5 mL 5 mL PRN, Intravenous, at 0-999 mL/hr, Line Care, Starting on Tue12/26/23 at 1920, For 90 days oxyCODONE (immediate release) (ROXICODONE) CUT tablet 2.5 mg(Linked Group 2) 2.5 mg, Oral, EVERY 4 HOURS PRN, Starting on Tue12/19/23 at 1233, Until 12/31/23 at 1550, Moderate Pain = Pain Score 4-6 0736 (See Alternative - Provider: Scarlett Henderson RN)1109 (See Alternative - Provider: Ian Rose RN)1900 (See Alternative - Provider: Marian Farias RN) 1624 (See Alternative - Provider: Ketty Bowers RN)215 (Given - Provider: Licha Hernández RN) oxyCODONE (immediate release) (ROXICODONE) tablet 5 mg(Linked Group 2) 5 mg, Oral, EVERY 4 HOURS PRN, Starting on Tue12/19/23 at 1233, Until 12/31/23 at 1550, Severe Pain = Pain Score 7-10 0736 (Canceled Entry - Provider: Scarlett Henderson RN - Comment: hypotension; BP 87/47 will notify provider)1109 (Given - Provider: Ian Rose RN)1900 (Given - Provider: Marian Farias RN) 162 (Given - Provider: Ketty Bowers RN)2154 (See Alternative - Provider: Licha Hernández RN) sterile water injection 10 mL 10 mL, Intravenous, PRN, Starting on Tue12/26/23 at 1920, Until 12/31/23 at 1550, For mixture of medications, For mixture of medications Linked Groups Order Group 1: Multivitamin mineral supplement (CENTRUM) tablet 1 TabletJump to med 1 Tablet, Oral, DAILY, 90 doses, First dose on Tue12/18/23 at 0900, Last dose on Tue03/16/24 at 0900, Route per patient preference Or multivitamin (CENTRUM) oral liquid 15 mLJump to med 15 mL, Oral, DAILY, 90 doses, First dose on Tue12/18/23 at 0900, Last dose on Tue03/16/24 at 0900, Route per patient preference Group 2: oxyCODONE (immediate release) (ROXICODONE) CUT tablet 2.5 mgJump to med 2.5 mg, Oral, EVERY 4 HOURS PRN, Starting on Tue12/19/23 at 1233, Until 12/31/23 at 1550, Moderate Pain = Pain Score 4-6 Or oxyCODONE (immediate release) (ROXICODONE) tablet 5 mgJump to med 5 mg, Oral, EVERY 4 HOURS PRN, Starting on Tue12/19/23 at 1233, Until 12/31/23 at 1550, Severe Pain = Pain Score 7-10 FOR RECORDS PERTAINING TO PATIENTS WHO ARE [...] BE BASED ON THE PRIMARY CLINICAL RECORDS. [facility] provides no warranty or guarantee of the accuracy or completeness of information in this document.
== END | disposition home or self-care (01) ==
LOC: CT 09:43
PROVIDERS: PCP Nurse Practitioner Family; Referring Provider Nurse Practitioner Acute Care; Visit Provider Nurse Practitioner Acute Care
DX: R91.1 Solitary pulmonary nodule (principal); F17.200 Nicotine dependence, unspecified, uncomplicated
CPT/HCPCS: 71250

== ENCOUNTER → 2025-02-25 | Outpatient (CLI) | payer MEDICAID, SELFPAY ==
--- NOTE | 2025-02-25 08:42 | MRI_ITS ---
PROCEDURE: LOWER EXT/NO JT/W/O; LOWER EXT JOINT ONLY (ROUTINE) 02/25/2025 REASON FOR EXAM: CHARCOT NEUROPATHY, LEFT FOOT AND ANKLE TECHNIQUE: Procedure Code: MRILENJ; MRILEJ Modality: MR Procedure: MRI of the left foot without contrast and MRI of the left ankle without contrast (combined dictation). Multiplanar and multisequence images were obtained without IV contrast administration. COMPARISON: COMPARISON : None provided. FINDINGS: Moderate degenerative changes are seen of the left 1st metatarsophalangeal joint. Extensive Charcot arthropathy is seen throughout the midfoot including the calcaneocuboid articulation, as well as throughout the tarsal-metatarsal articulation. Dorsal subluxation of the 2nd and 3rd metatarsal bones is seen. Mild degenerative changes are seen throughout the toes. Significant edema and small fluid collection seen plantar to the 5th metatarsal head. No findings are seen to suggest presence of acute fracture. In the hindfoot, [id number] degenerative changes are seen of the subtalar joints, also with small joint effusion present. Moderately large inferior calcaneal spur. Small posterior calcaneal enthesophyte. Normal appearance of the Achilles tendon is seen. The ankle joint demonstrates no joint effusion. No evidence of talar dome osteonecrosis. No significant ankle joint arthritic changes are seen. Evaluation of the tendons reveals no apparent tear. MRI/Lower Ext/No Jt/w/o IMPRESSION: Charcot arthropathy and degenerative changes as described. No findings are see n to suggest the presence of an acute fracture. Reading Location: [id number]
--- NOTE | 2025-02-25 09:45 | MRI_ITS ---
PROCEDURE: LOWER EXT/NO JT/W/O; LOWER EXT JOINT ONLY (ROUTINE) 02/25/2025 REASON FOR EXAM: CHARCOT NEUROPATHY, LEFT FOOT AND ANKLE TECHNIQUE: Procedure Code: MRILENJ; MRILEJ Modality: MR Procedure: MRI of the left foot without contrast and MRI of the left ankle without contrast (combined dictation). Multiplanar and multisequence images were obtained without IV contrast administration. COMPARISON: COMPARISON : None provided. FINDINGS: Moderate degenerative changes are seen of the left 1st metatarsophalangeal joint. Extensive Charcot arthropathy is seen throughout the midfoot including the calcaneocuboid articulation, as well as throughout the tarsal-metatarsal articulation. Dorsal subluxation of the 2nd and 3rd metatarsal bones is seen. Mild degenerative changes are seen throughout the toes. Significant edema and small fluid collection seen plantar to the 5th metatarsal head. No findings are seen to suggest presence of acute fracture. In the hindfoot, [id number] degenerative changes are seen of the subtalar joints, also with small joint effusion present. Moderately large inferior calcaneal spur. Small posterior calcaneal enthesophyte. Normal appearance of the Achilles tendon is seen. The ankle joint demonstrates no joint effusion. No evidence of talar dome osteonecrosis. No significant ankle joint arthritic changes are seen. Evaluation of the tendons reveals no apparent tear. MRI/Lower Ext Joint Only (Routine) IMPRESSION: Charcot arthropathy and degenerative changes as described. No findings are see n to suggest the presence of an acute fracture. Reading Location: [id number]
== END | disposition home or self-care (01) ==
PROVIDERS: PCP Nurse Practitioner Family; Referring Provider Podiatrist; Visit Provider Podiatrist
DX: M14.672 Charcot's joint, left ankle and foot (principal)
CPT/HCPCS: 73718; 73721

== ENCOUNTER → 2025-03-12 | Outpatient (CLI) | payer MEDICAID, SELFPAY ==
[2025-03-12 13:14] LABS: Anion Gap 14 (5-15); BUN 18 mg/dL (4-19); BUN/Creat Ratio 23.5 RATIO (10-20); Calcium,Total 9.7 mg/dL (7.6-11.0); Carbon Dioxide 25.9 mmol/L (21.0-32.0); Chloride 101 mmol/L (98-108); Glucose 60 mg/dL (70-99); Potassium 4.4 mmol/L (3.3-5.1); Vitamin D,25 Hydroxy 30.9 ng/mL (30-100)
== END | disposition home or self-care (01) ==
LOC: MTLAB 10:51
PROVIDERS: PCP Nurse Practitioner Family; Referring Provider Podiatrist; Visit Provider Podiatrist
DX: M14.672 Charcot's joint, left ankle and foot (principal)
CPT/HCPCS: 36415; 80048; 82306

== ENCOUNTER 2025-04-02 17:01 | Emergency (ER) | payer MEDICAID, SELFPAY ==
[2025-04-02 17:03] VITALS: BP 134/53; PULSE 71; RESP 15; TEMP 36.2; O2SAT 91
[2025-04-02 17:05] VITALS: BP 135/53; PULSE 71; RESP 15; TEMP 36.2; O2SAT 91
[2025-04-02 17:13] VITALS: BMI 47.7
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
--- NOTE | 2025-04-02 17:37 | RAD_ITS ---
PROCEDURE: CHEST PA AND LATERAL 04/02/2025 REASON FOR EXAM: COUGH TECHNIQUE: Procedure Code: RADCXR Modality: DX Procedure: CHEST PA AND LATERAL COMPARISON: 07/21/2024 FINDINGS: Lungs/Pleura: No focal consolidation, pneumothorax or pleural effusion appreciated. Heart/Mediastinum: Cardiomegaly. No significant vascular congestion. Bones/Soft tissues: Degenerative changes of the spine and bilateral shoulders. RAD/Chest PA and Lateral IMPRESSION: Cardiomegaly. No evidence of acute pulmonary disease. Reading Location: [id number]
[2025-04-02 17:48] VITALS: PULSE 61; RESP 16
[2025-04-02 18:27] VITALS: BP 141/67; PULSE 66; RESP 18; TEMP 36.6; O2SAT 94
== END 2025-04-02 18:30 | disposition home or self-care (01) ==
LOC: ED 18:00
PROVIDERS: Emergency Provider Emergency Medicine; PCP Nurse Practitioner Family; Visit Provider Emergency Medicine
DX: J06.9 Acute upper respiratory infection, unspecified (principal); J43.9 Emphysema, unspecified; E11.9 Type 2 diabetes mellitus without complications; Z79.4 Long term (current) use of insulin; L03.012 Cellulitis of left finger; T23.022A Burn of unspecified degree of single left finger (nail) except thumb, initial encounter; F17.210 Nicotine dependence, cigarettes, uncomplicated; Z79.84 Long term (current) use of oral hypoglycemic drugs; Z86.718 Personal history of other venous thrombosis and embolism
CPT/HCPCS: 71046; 73140; 94640; 99284